=== PATIENT | female | born 1975 | race Caucasian/White ===

== ENCOUNTER 2020-06-22 05:44 | Day surgery (SDC) | payer BC, SELFPAY ==
--- NOTE | 2020-06-02 12:23 | HP.PCM_ITS ---
History and Physical Date of Admission: 06/22/20 HPI:?44-year-old female with history of estrogen and progesterone negative br east cancer in 2014 presents for consultation for bilateral salpingectomy. ?She's completed childbearing. ?She has a history of significant dysmenorrhea and menorrhagia in the past. ?That's been controlled well with the Mirena intrauterine system. ?She would like to have this replaced as well as five-year expiration is in?June 2020.??She has rare occasional spotting with her current Mirena. ?She denies any other major changes in her medical or surgical history. ? PAST MEDICAL HISTORY PAST MEDICAL HISTORY Diagnosis Date ? Atypical mole ? ? Benign colon polyp ? ? BRCA negative 2014 ? 1 & 2 ? Breast lump ? ? Inflammatory breast cancer ? ? right breast, stage 3C- in lymphnodes- triple negative ? Malignant neoplasm of overlapping sites of right female breast ? ? Right tibial fracture ? ? Snoring ? PAST SURGICAL HISTORY PAST SURGICAL HISTORY Procedure Laterality Date ? BREAST BIOPSY ? 07/28/2015 ? COLONOSCOP W/ OR W/O BRSH SPEC ? 11/19/2013 ? Colonoscopy ? COLONOSCOP W/ OR W/O BRSH SPEC N/A 11/22/2016 ? COLONOSCOP W/ OR W/O BRSH SPEC ? 12/13/2019 ? Colonoscopy ? EXTRACTION, ERUPTED TOOTH OR EXPOSED ROOT (ELEVATION AND/OR FORCEPS REMOVAL) ? 1998 ? wisdom teeth ? INSERT INTRAUTERINE DEVICE ? 07/05/2015 ? MASTECTOMY, MODIFIED RADICAL Right 02/05/2016 FAMILY HISTORY FAMILY HISTORY Problem Relation Age of Onset ? Hypertension Mother ? ? Colon Cancer Father ?passed in 1984 in his 50's ? Breast Cancer Other ?2nd degree relative ? Ovarian cancer Paternal Grandmother ?Other 2nd degree relative ? other (precancerous breast lesion) Maternal Grandmother 80 ? Cancer Paternal Grandfather ?kidney ? Ovarian cancer Other ? SOCIAL HISTORY Social History ? Tobacco Use ? Smoking status: Former Smoker ? ? Packs/day: 0.25 ? ? Years: 5.00 ? ? Pack years: 1.25 ? ? Types: Cigarettes ? ? Start date: 1995 ? ? Quit date: 02/20/2007 ? ? Years since quittin.2 ? Smokeless tobacco: Never Used Substance Use Topics ? Alcohol use: Yes ? ? Alcohol/week: 2.0 standard drinks ? ? Types: 1 Cans of beer, 1 Glasses of wine per week ? ? Comment: occassional, social ? Drug use: No CURRENT MEDICATIONS Current Outpatient Medications Medication Sig ? calcium-vitamin D3-vitamin K 500 mg-1,000 unit-40 mcg chew Take ?by mouth once daily. ? levonorgestrel (MIRENA) 20 mcg/24 hr (5 years) IUD Inserted in office ? No current facility-administered medications for this visit.? Allergies As of Date: 05/24/2020 Allergen ?Noted ?Reaction NO KNOWN ALLERGIES ?09/01/2017 ?Unknown SEASONAL ALLERGIES ?05/23/2017 ?Unknown ? Fully Assessed ?04/26/2020 ? ? REVIEW OF SYSTEMS Ano new complaint? Allergies and current medication updated:Yes ? EXAM:?LMP 07/05/2015? ? ? GENERAL:?pleasant, ?female in no apparent distress HEENT:?Normocephalic, atraumatic, mucus membranes moist and no lesions ? ? ASSESSMENT AND PLAN:?? 44-year-old female with history of estrogen and progesterone negative breast cancer would like laparoscopic bilateral salpingectomy for sterilization and possible risk reduction for future ovarian cancer. ?Risks benefits and alternatives to surgery and discussed with the patient, her questions were answered her satisfaction she desires to proceed. ?In addition she has history of heavy menses and dysmenorrhea which are controlled with her intrauterine system. ?She would like this change at time of surgery. ?This is reasonable being that's been 5 years since her last insertion. ?Discussed with her parameters used at [facility] and she is comfortable with proceeding with Liletta?insertion. Procedure Criteria Procedure Type: Elective COVID Risk Discussion: The surgeon/proceduralist and patient have discussed in detail the risk of exposure to and/or potential harm posed by the COVID-19 virus with having a surgery/procedure at this time versus the risk of delaying the surgery/procedure. It is not possible to know either the risk of delaying the s urgery or procedure or chance of getting an infection with perfect accuracy, but a joint decision was made between the patient and the surgeon/proceduralist to proceed at this time with the scheduled surgery/procedure as indicated on the consent form.
--- NOTE | 2020-06-15 08:33 | EKG12_ITS ---
Test Reason : PRE OP Blood Pressure : / mmHG Vent. Rate : 056 BPM Atrial Rate : 056 BPM P-R Int : 150 ms QRS Dur : 092 ms QT Int : 452 ms P-R-T Axes : 006 016 046 degrees QTc Int : 436 ms Sinus bradycardia Otherwise normal ECG Confirmed by ANA BAI, KARAN ([id number]), graphics editor IVANA THOMAS ([id number]) on 06/20/2020 8:05:26 AM Referred By: Mitra Cary Confirmed By:LUIS PEREZ MD
--- NOTE | 2020-06-15 08:34 | RAD_ITS ---
STUDY: X-RAY CHEST REASON FOR EXAM: Female, 44 years old. PRE-OP, HX OF RIGHT SIDED BREAST CANCER AND RADIATION THERAPY TECHNIQUE: PA and lateral views of the chest. COMPARISON: None. FINDINGS: Surgical clips are seen in the right axillary region. The patient is status post right mastectomy. The lungs are clear and expanded. There is no demonstrated pleural abnormality. Normal size heart. Normal mediastinum and carissa. Normal visualized pulmonary arteries. Normal visualized aortic arch and descending thoracic aorta. There are mild degenerative changes of the visualized thoracic spine. Normal visualized ribs, clavicles, and shoulders. There is no demonstrated abnormality of the visualized soft tissue structures of the upper abdomen. RAD/Chest PA and Lateral IMPRESSION: Status post right mastectomy and right axillary node dissection. Electronically Signed: Frederick Puente, at 10:17 EDT , Service support ,
[2020-06-15 09:26] LABS: Hematocrit 44.1 % (37-47); Mean Corpuscular Hgb 31.3 pg (27.0-32.0); Mean Corpuscular Volume 92.1 fL (81-99); Mean Platelet Vol. 10.2 fl (6.2-12.0); Platelet Count 285 K/mm3 (150-450); RBC Distribution Width SD 40.6 fl (35.1-43.9); Red Blood Count 4.79 M/mm3 (4.2-5.4); White Blood Count 9.1 K/mm3 (4.4-11.0)
[2020-06-22] VITALS (9 sets, daily range): BP systolic 115–145; BP diastolic 62–94; PULSE 53–65; RESP 16–22; TEMP 36.1–37; O2SAT 92–97; BMI 41.3
[2020-06-22] MEDS: Celecoxib 200 MG Capsule 400 MG PO (06:23)
[2020-06-22] MEDS: Acetaminophen 500 MG Tablet 1000 MG PO (06:23)
[2020-06-22] MEDS: Lactated Ringers 1,000 ML 100 ML IV ×2 (06:26→10:13)
[2020-06-22 06:39] LABS: Internal QC Validated? YES +Cl - CLEAR BKGD; Pregnancy, Urine Negative Negative
--- NOTE | 2020-06-22 07:30 | FALS_PTH ---
PATIENT: TAMEKA HORTON LOC: [facility] [place] U#:[id number] AGE/SX: 44/F ROOM: RE06/22/[address]: Dr. Mitra Cary MD : [id number] BED: DIS: 06/22/2020 SPEC #: [id number] RECD: 06/22/20 09:17 STATUS: SYDNEE DUKETyrese #: [id number] MANNY: 06/22/20 07:[address]: Mitra Cary DEPT: SURGICAL PATHOLOGY RECD BY: Naomi Baxter Tissues: Fallopian tube Procedures: Surgery Specimen Level II HEADER OPERATION: Laparoscopic salpingectomy, IUD removal PRE-OP DIAGNOSIS: Sterilization TISSUE SUBMITTED: Bilateral fallopian tubes MICROSCOPIC DIAGNOSIS Bilateral fallopian tubes, salpingectomy: Bilateral fallopian tubes including fimbrial ends, no pathologic diagnosis. Paratubal cyst. JOEL:sydney 06/23/20 MICROSCOPIC DESCRIPTION Slides are reviewed. GROSS DESCRIPTION Received in fixative is one container labeled with the patient's name and designated bilateral fallopian tubes. The specimen consists of two fallopian tubes with an average length of 5 cm and has an average diameter of 0.5 cm. Both fallopian tubes have normal fimbriated ends. No mass lesions are identified. Also present free in the container are two irregular fragments of yellow to smooth, cystic soft tissue measuring in aggregate 1.5 x 0.5 x 0.2 cm. Refuse And Recycling Worker sections are submitted in two cassettes as follows: 1 - one fallopian tube, 2 - the other fallopian tube with cystic and nondescript structures. / AM:sydney 06/22/20 TC:5 CPT: 47423 x2
[2020-06-22] MEDS: Levonorgestrel IUD (Liletta) 1 EACH IY (07:58)
[2020-06-22] MEDS: Bupivacaine Mpf 0.5% 30 ML VIAL (07:58)
--- NOTE | 2020-06-22 08:43 | PCM.OPRPT ---
Report of Operation Date of Procedure: 06/22/20 Pre-Operative Diagnosis: dysmenorrhea, sterilization request, history of breast cancer Post-Operative Diagnosis: same Surgery/Procedure Performed:: Laparoscopic bilateral salpingectomy, IUD removal, Liletta IUD insertion Description of Surgical Findings:: normal uterus, tubes, ovaries and fallopian tube, normal cervix and vagina assembler fluorescent lights: student - Ginger Joseph MS3 Type of Anesthesia:: General Special Medications: none Specimen's removed: bilateral fallopian tubes Drains: none Estimated Blood Loss (mL): 10 Fluids Replaced: 500 Description of Procedure: The patient was taken to the operating room where she was prepped and draped in the dorsolithotomy position. A weighted speculum was placed in the vagina and the anterior lip of the cervix was grasped with a tenaculum. The Margo uterine manipulator was placed and the remainder of the instruments were removed from the vagina. Attention was turned to the abdomen. All port sites were infiltrated with 0.5% Marcaine before skin incisions were made. A 5 mm intraumbilical incision was made. The anterior abdominal wall was tented up with 2 towel clamps while a 5 mm blade less trocar and sleeve were directly inserted. Intraperitoneal placement was confirmed with the laparoscope. The pneumoperitoneum was created and the underlying abdominal contents were intact. The patient was placed in Trendelenburg. Right and left lower quadrant ports were placed under direct visualization lateral to the inferior epigastric vessels. The bowel was swept away and the above findings were noted. The LigaSure device was used to clamp seal and transect the antimesenteric portions of the right tube to the cornual insertion of the uterus. The tube was amputated from the uterus and the pedicles were all confirmed to be hemostatic. The same procedure was performed on the contralateral side. The specimens were brought out through a 5 mm port. The pedicles were again examined and found to be hemostatic. The lateral ports were removed under direct visualization and no active bleeding was noted. The pneumoperitoneum was released. The skin incisions were closed with Monocryl suture in a subcuticular fashion and skin glue. The Mirena IUD was grasped with a sponge stick in the Mirena was removed intact without difficulty. The uterus sounded to 8 cm and was anteverted. The Liletta IUD was inserted in the usual sterile fashion without difficulty and the strings trimmed to 3 cm. The vaginal instruments were removed and the vaginal sweep was completed by me. The procedure was performed by me with assistance. All sponge and needle counts were correct and the patient was taken to the recovery room in stable condition. Start time 0758 Stop time 0841 Grafts/Implants Used: Liletta IUD - Complications none - Admit VTE Documentation VTE Present on Admission: No VTE Mechan Device Prophylaxis: SCD's VTE Pharm Prophylaxis ordered?: No Reason prophylaxis not ordered:: Procedure Not Indicated
--- NOTE | 2020-06-22 09:05 | PCM.DC.TUB ---
Discharge Diet: No Restrictions - Increase fluid intake for the next 48 hours. Discharge Activity: Return to Normal Activity, May Drive - when you are no longer taking pain/narcotic meds., May Shower, May Take a Tub Bath - in 7 days Additional Activity Instructions:: Ambulate often the next week after surgery. Nothing in the vagina for 5 days. Call your doctor if your incision/area has: Continuous Slow Oozing, Sudden Increased Bleeding, Increased Pain/ Swelling, Increased Redness, Foul Smelling Discharge Call your doctor if you observe: Fever of 101 or Higher Cleanse incision/area with: Soap & Water, - - Your incisions have skin glue, it can get wet. Let it fall off on its own. Additional Instructions: Use motrin and acetaminophen as needed for pain. Use oxycodone as needed only for breakthrough pain. Allergies/Adverse Reactions: Allergies No Known Allergies Allergy (Verified 06/22/20 06:15) Medications to take at Discharge Bacillus Coagulans/Vitamin D3 [Probiotic 2 Billion Gummies] 1 ea PO DAILY 06/13/20 Calcium Carbonate/Vitamin D3 [Calcium 500 mg Chewable Tablet] 1 ea PO DAILY 06/13/20 Cider Vinegar [Apple Cider Vinegar] 300 mg PO DAILY 06/13/20 Multivitamin with Minerals [Multiple Vitamin] 1 ea PO DAILY 06/13/20 Ibuprofen [Motrin] 600 mg PO Q6H PRN #60 tab 06/22/20 Oxycodone HCl/Acetaminophen [Percocet 5/325] 1 tablet PO Q8 PRN 4 Days #8 tablet 06/22/20 The following prescriptions were given: Ibuprofen [Motrin] 600 mg PO Q6H PRN #60 tab PRN Reason: Pain Transmission Status: Pending to [facility]/pharmacy #[id number] Oxycodone HCl/Acetaminophen [Percocet 5/325] 1 tablet PO Q8 PRN 4 Days #8 tablet PRN Reason: Pain Transmission Status: Received by [facility]/pharmacy #[id number] Primary Care Physician: MAGGIE GALLOWAY [Other] Test Results: Test results from this visit will be discussed in further detail at your follow-up appointment, if applicable. Please Follow Up With: Mitra Cary MD - [phone] When: 2 weeks or as needed
[2020-06-22] MEDS: HYDROcodone Bitartrate/Apap 5/325 Tablet PO (10:47)
== END 2020-06-22 12:01 | disposition home or self-care (01) ==
LOC: SDC 05:46 → AC 05:49
PROVIDERS: Anesthesiology; Referring Provider Obstetrics & Gynecology; Visit Provider Obstetrics & Gynecology
PROC: (CPT 58661; principal; 2020-06-22 07:15)
DX: Z30.2 Encounter for sterilization (principal); N83.8 Other noninflammatory disorders of ovary, fallopian tube and broad ligament; N94.6 Dysmenorrhea, unspecified; Z17.1 Estrogen receptor negative status [ER-]; Z85.3 Personal history of malignant neoplasm of breast; Z87.891 Personal history of nicotine dependence; Z90.11 Acquired absence of right breast and nipple; Z80.41 Family history of malignant neoplasm of ovary
CPT/HCPCS: 00840; 58300; 58301; 58661; 36415; 71046; 81025; 85027; 87635; 88302; 93005; C9803; J7120; J2405; U0003

== ENCOUNTER 2024-09-01 08:00 | Outpatient (RCR) | payer BC, SELFPAY ==
--- NOTE | 2024-07-30 10:46 | HP.PTEVAL_ITS ---
Patient's Visit Information Visit Information Visit Information: TAMEKA HORTON is a 48 year old F referred to Physical Therapy by ROBERTO CARLOS Reilly with a diagnosis of LEFT SHOULDER PAIN. Date of Evaluation: 07/30/24 Physical Therapist: Agusto Thurman PT, Cert MDT, OCS Visit Plan Frequency: 2x /Week Duration: 4 Weeks Plan: PT INTERVENTIONS RTC/SCAPULAR STRENGTHENING ,POSTURAL EX'S ,ROM AND MODALTIES PRN Subjective Subjective: This 48 y/o female presents to physical therapy for left shoulder pain. Patient has had intermittent left lateral shoulder pain for~ [address] robb PT. No imaging .Patient pain is intermittent OH and eccentric lowering affects ADL 's and housework tasks.Patient pain occasionally sleeping. Patient denies paresthesia/tingling. Pain described as dull ache. Patient has not tried to work out.Patient condition affects QOL and function/housework tasks. Patient goals to decrease pain. SOCIAL: single VOCATION:[employer] Pain Left Shoulder: Pain Intensity (Out of 10): 2 Pain Intensity Range: 10 Objective Objective: POSTURE: rounded shoulders head forward PALAPTION: unremarkable NEURO: denies paresthesia/tingling AROM: shoulder flexion 140 degrees ,abduction 150 degrees ,ER 90 degrees ,IR T10 MMT: ( peak force) infraspinatus 9.2,suprapinatus 10.2,deltoid 14.5 Special Tests L Shoulder External Rotation Lag Test - RC Tear: Negative L Shoulder Lift Off Test - Subscapular Tear: Negative L Shoulder Drop Sign - IS Test: Negative L Shoulder Empty Can - SS: Positive L Shoulder Belly Press - SupScap: Negative L Shoulder Neer - Impingement: Positive L Shoulder Albert Yrn - Impingement: Positive L Shoulder Speeds Test - Labrum/Biceps: Negative Balance/Special Test Scores Quick DASH Score: 27.2725 Goals Goal 1:: I with HEP for shoulder Goal Time Frame: 4-6 Weeks Goal 2:: Patient to improve AROM shoulder flexion/abduction 160 degrees to improve ADLS Goal Time Frame: 4-6 Weeks Goal 3:: Patient to improve peak force RTC and deltoid by 5-10# to improve function/ADLS Goal Time Frame: 4-6 Weeks Goal 4:: Patient to demonstrate 70% improvement with less pain and improved function with ADL's Goal Time Frame: 4-6 Weeks Goal 5:: Patient to improve quick dash by 5 points to improve QOL and function Goal Time Frame: 4-6 Weeks Rehabilitation Potential Physical Therapy Diagnosis: This patient has weakness RTC with pain with ten dinopathy with decrease ROM ,weakness impairs ADL and housework tasks above 90 degrees thus benefit from skilled PT Rehabilitation Potential: Good Anticipated Interventions Patient/Client Instruction: Educate patient on: Condition and Plan of Care For the Purpose of:: To decrease pain, To increase ROM, To improve muscle performance and motor function, To improve ability to perform ADL's, To increase tolerance to activity/condition/position, To improve ability of physical actions for home/community/work/leisure, To improve health of tissue, To decrease soft tissue restriction, To increase flexibility/ROM, To improve balance, To reduce risk of recurrence and To prevent re-injury Therapeutic Exercise to Include: Strength training, Postural training, Flexibilty training, Active ROM and Scapular Strength/Stabilization Comment: RTC For the Purpose of:: To decrease pain, To increase ROM, To improve muscle performance and motor function, To improve ability to perform ADL's, To improve ability of physical actions for home/community/work/leisure, To improve health of tissue, To decrease soft tissue restriction, To increase flexibility/ROM and To reduce risk of recurrence TENS: Yes IF ES: Yes Cryotherapy (ice pack, ice massage): Yes Thermo therapy (hot pack): Yes Ultrasound (thermal/non thermal): Yes For the Purpose of:: To decrease pain, To increase ROM, To improve nutrient delivery to tissue, To increase oxygenation perfusion, To improve health of tissue and To decrease soft tissue restriction Text: Thank you for the opportunity to evaluate your patient. For Medicare and Medicare HMO plans, please review the plan of care and approve it. It will need to be FAXED BACK to us at [phone] for Medicare purposes. For Medicare only, by signing this I certify the plan of care. Please let me know if there are questions or concerns regarding this plan of care. Physician Signature: Date:
--- NOTE | 2024-09-01 08:35 | HP.PTDCSUM ---
Discharge Summary D/C summary: It has been my pleasure to treat TAMEKA HORTON referred by ROBERTO CARLOS Reilly, with the diagnosis of LEFT SHOULDER PAIN for a total of 7 visit(s). Discharge Date: 09/01/24 Please see the following information for a summary of their discharge status. Subjective Subjective: Doing good ,although has some lateral deltoid Pain Left Shoulder: Pain Intensity (Out of 10): 0 Overall Improvement % Improvement: 60 Objective Objective/Function: POSTURE: rounded shoulders head forward PALAPTION: unremarkable NEURO: denies paresthesia/tingling AROM: shoulder flexion 155 degrees ,abduction 160 degrees ,ER 90 degrees ,IR T10 MMT: ( peak force) infraspinatus 21.8,suprapinatus 26.2,deltoid 31.4 Goals Goal 1:: I with HEP for shoulder Goal Progress: Goal Met Goal 2:: Patient to improve AROM shoulder flexion/abduction 160 degrees to improve ADLS Goal Progress: Goal Met Goal 3:: Patient to improve peak force RTC and deltoid by 5-10# to improve function/ADLS Goal Progress: Goal Met Goal 4:: Patient to demonstrate 70% improvement with less pain and improved function with ADL's Goal Progress: Goal Met Goal 5:: Patient to improve quick dash by 5 points to improve QOL and function Goal Progress: Goal Met Plan Plan: D/C D/C Information Discharge Comments: HEP d/c sentence: If there are questions or concerns regarding this patient's physical therapy, please feel free to call me at [phone]. Thank you for the referral of this patient. Sincerely, Agusto Thurman, PT, Cert MDT, OCS Balance/Gait/Functional tests Balance/Special Test Scores Quick DASH Score: 4.5450 Improvement % Improvement: 60
== END 2024-09-01 19:00 | disposition home or self-care (01) ==
LOC: PT 08:00
PROVIDERS: PCP Nurse Practitioner Family; Referring Provider Nurse Practitioner Family; Visit Provider Nurse Practitioner Family
DX: M25.512 Pain in left shoulder (principal)
CPT/HCPCS: 97110; 97162

== ENCOUNTER → 2025-05-17 | Outpatient (CLI) | payer BC, SELFPAY ==
--- OUTSIDE RECORDS SUMMARY | 2025-05-17 07:32 | XMS RPT_ITS | CCD ---
Author Organization [facility] Inform ion Partnership [facility] Care Team Providers Care Incident Response Specialist Name Role Phone Zainab Fountain (Stagecraft Professor) Primary Care Provider Leodan BAI MD, Dajohnung Unavailable Yoni Hale Unavailable ZANIAB FOUNTAIN (LEAD ORACLE DEVELOPER) Primary Care Unavailabl e RICO CLIFFORD Attending Unavailable RICO CLIFFORD Admitting Unavailable Zainab Fountain (Stagecraft Professor) Primary Care Provider Leodan BAI MD, Dajohnung Unavailable Yoni Hale DPM Unavailable ZAINAB FOUNTAIN Attending Unavailable ZAINAB FOUNTAIN Primary Care Unavailable UNKNOWN, PROVIDER Primary Care Unavailable YONI NUNO Attending Unavailable Leodan BAI, Maximiliano Unavailable Zainab Fountain (Stagecraft Professor) Primary Care Provider Zainab Fountain NP Primary Care Provider АЛЕКСАНДР INTELLIGENCE OPERATIONS-ZAINAB SAMPSON Primary Care Physician Beena Sevilla Attending Unavail able Zainab Fountain Referring Unavailable Zainab Fountain Attending Unavailable Zainab Fountain Primary Care Unavailable Александр LEAD ORACLE DEVELOPERZainab Primary Care Provider ZAINAB FOUNTAIN Primary Care Unavailable LUDY LEE Attending Unavailable ZAINAB FOUNTAIN Primary Care Unavailable RICO CLIFFORD Attending Unavailable LUDY LEE Referring Unavailable LUDY LEE Attending Unavailable ZAINAB FOUNTAIN Primary Care Unavailable ZAINAB FOUNTAIN Primary Care Unavailable LENORE MORELOS Attending Unavailable ZAINAB FOUNTAIN Primary Care Unavailable SELF Referring Unavailable ANDEION, LENORE Munoz Attending Unavailable АЛЕКСАНДР, ZAINAB Dixon Primary Care Unavailable Dr. Billie Lozoya Attending Unavailable FOUNTAIN, ZAINAB Dixon Primary Care Unavailable HASENSTALEAH, LENORE Munoz Attending Unavailable FOUNTAIN, ZAINAB Dixon Referring Unavailable ZAINAB FOUNTAIN Primary Care Unavailable JACINTO, SHANIQUE Attending Unavailable АЛЕКСАНДР, ZAINAB L Primary Care Unavailable JACINTO, SHANIQUE Referring Unavailable FOUNTAIN INTELLIGENCE OPERATIONS-MANAGER BUSINESS PLANNING, ZAINAB Dixon Primary Care Physician АЛЕКСАНДР INTELLIGENCE OPERATIONS-MANAGER BUSINESS PLANNING, ZAINAB Dixon Primary Care Unavai lable FOUNTAIN INTELLIGENCE OPERATIONS-MANAGER BUSINESS PLANNING, ZAINAB Dixon Attending Unavai lable FOUNTAIN INTELLIGENCE OPERATIONS-MANAGER BUSINESS PLANNING, ZAINAB Dixon Attending Unavai lable FOUNTAIN INTELLIGENCE OPERATIONS-MANAGER BUSINESS PLANNING, ZAINAB Dixon Primary Care Unavai lable FOUNTAIN INTELLIGENCE OPERATIONS-MANAGER BUSINESS PLANNING, ZAINAB Dixon Attending Unavai lable FOUNTAIN INTELLIGENCE OPERATIONS-MANAGER BUSINESS PLANNING, ZAINAB Dixon Primary Care Unavai lable Александр LEAD ORACLE DEVELOPER, Zainab Casiano Primary Care Provider Allergies Allergy Classification Reported Allergen(s) Allergy Type Date of Onset Reaction(s) Facility (15 sources) Seasonal allergy; Translations: [SEASONAL ALLERGIES] Allergy to substance 7 Unknown, Cough [facility] (3 sources) seasonal enviromental Allergy to substance Sore throat symptom (finding) [facility] NEGATED: Highlighted row has been ruled out! (1 source) Drug allergy [facility] NEGATED: Highlighted row has been ruled out! (1 source) Drug allergy [facility] NEGATED: Highlighted row has been ruled out! (1 source) Drug allergy [facility] Medications Current Medications Medication Drug Class(es) Dates Sig (Normalized) Sig (Original) 0.5 ML tirzepatide 25 MG/ML Auto-Injector [Mounjaro] (3 sources) Start: 07-22-2024 inject 12.5 mg by subcutaneous injection every week Mounjaro 12.5 mg/0.5 mL subcutaneous solution INJECT 12.5 MG SUBCUTANEOUSLY ONE TIME A WEEK. Start Date: 07/22/24 Status: Ordered Repeat number: 1 Start: 07-22-2024 inject 12.5 mg by robertson bcutaneous injection every week Mounjaro 12.5 mg/0.5 mL subcutaneous solution INJECT 12.5 MG SUBCUTANEOUSLY ONE TIME A WEEK. Start Date: 07/22/24 Status: Ordered CPAP/BIPAP/OTHER (20 sources) Start: 01-16-2024 End: 06-02-2051 CPAP/BIPAP/OTHER Indications : HALIMA (obstructive sleep apnea) AutoPAP 5-20 cmH2O Mask per patient preference Lifetime supplies Dx: HALIMA 1 Each 01/16/2024 06/02/2051 Active Start: 01-16-2024 End: 06-02-2051 CPAP/BIPAP/OTHER Indications : HALIMA (obstructive sleep apnea) AutoPAP 5-20 cmH2O Mask per patient preference Lifetime supplies Dx: HALIMA 1 Each 0 01/16/2024 06/02/2051 Active Comment on above: AutoPAP 5-20 cmH2O Mask per patient preference Lifetime supplies Dx: HALIMA levonorgestrel 0.354479 mg/hr intrauterine system (20 sources) Progestin, Progestin-containing Intrauterine Device Start: 06-23-2020 levonorgestrel (LILETTA) 20.1 mcg/24 hrs (6 yrs) 52 mg IUD 1 Each by INTRAUTERINE route as directed. put in at [facility] 1 Intra Uterine Device 06/23/2020 Active Comment on above: 1 Each by INTRAUTERI NE route as directed. put in at [facility] meloxicam 15 mg oral tablet (1 source) Nonsteroidal Anti-inflammatory Drug Start: 04-29-2025 End: 05-29-2025 meloxicam 15 mg oral tablet Dose : 15 mg = 1 tab(s), Oral, qDay, # 30 tab(s), 0 Refill(s), Pharmacy: [facility]/pharmacy #[id number], Arthralgia, 166, cm, 07/22/24 9:23:00 EDT, Height, kg, 07/22/24 9:23:00 EDT, Dosing Weight Start Date: 04/29/25 Stop Date: 05/29/25 Status: Ordered Quantity: 30.0 Unit: tab(s) Repeat number: 1 Indications: Pain in unspecified joint; ONETOUCH DELICA PLUS 33G LANCT (3 sources) Start: 07-21-2023 ONETOUCH DELICA PLUS 33G LANCT ONETOUCH DELICA PLUS 33G LANCT, USE ONE DAILY Start Date: 07/21/23 Status: Ordered Repeat number: 1 Start: 07-21-2023 ONETOUCH DELIC A PLUS 33G LANCT ONETOUCH DELICA PLUS 33G LANCT, USE ONE DAILY Start Date: 07/21/23 Status: Ordered 0.25 mg, 0.5 mg dose 1.5 ml semaglutide 1.34 mg/ml pen injector (4 sources) Start: 10-30-2022 End: 01-13-2023 semaglutide (OZEMPIC) 0.25 mg or 0.5 mg(2 mg/1.5 mL) pen Indications: Class 3 severe obesity due to excess calories in adult, unspecified BMI, unspecified whether serious comorbidity present (HCC) , Dietary counseling and surveillance , BMI 40.0-44.9, adult (HCC) , Inflammatory breast cancer, right (HCC) , Moderate mixed hyperlipidemia not requiring statin therapy , HALIMA (obstructive sleep apnea) , Controlled type 2 diabetes mellitus without complication, without long-term current use of insulin (HCC) Inject 0.25 mg subcutaneously one time a week. 1 mL 1 10/30/2022 01/13/2023 Active Comment on above: Inject 0.25 mg subcutaneously one time a week. tirzepatide (MOUNJARO) 10 mg/0.5 mL pen injector (4 sources) Start: 05-27-2024 End: 06-24-2024 inject 10 mg by subcutaneous injection every week tirzepatide (MOUNJARO) 10 mg/0.5 mL pen injector Inject 10 mg subcutaneously one time a week. 2 mL 05/27/2024 06/24/2024 Discontinued Start: 05-27-2024 End: 06-26-2024 inject 10 mg by subcutaneous injection every week tirzepatide (MOUNJARO) 10 mg/0.5 mL pen injector Inject 10 mg subcutaneously one time a week. 2 mL 0 05/27/2024 06/26/2024 Active Start: 12-16-2023 End: 12-23-2023 tirzepatide (MOUNJARO) 10 mg /0.5 mL pen injector Indications: Type 2 diabetes mellitus with other specified complication, without long-term current use of insulin ([facility]) , Dietary counseling and surveillance , BMI 38.0-38.9,adult Inject 10 mg subcutaneously one time a week. 2 mL 0 12/16/2023 12/23/2023 Discontinued Start: 12-16-2023 End: 01-15-2024 tirzepatide (MOUNJARO) 10 mg /0.5 mL pen injector Indications: Type 2 diabetes mellitus with other specified complication, without long-term current use of insulin ([facility]) , Dietary counseling and surveillance , BMI 38.0-38.9,adult Inject 10 mg subcutaneously one time a week. 2 mL 0 12/16/2023 01/15/2024 Active Comment on above: Inject 10 mg subcuta neously one time a week. tirzepatide (MOUNJARO) 15 mg/0.5 mL pen injector (15 sources) Start: 02-09-2025 End: 05-04-2025 tirzepatide (MOUNJARO) 15 mg/0.5 mL pen injector Indications: Type 2 diabetes mellitus with other specified complication, without long-term current use of insulin ([facility]) , Dietary counseling and surveillance , BMI 37.0-37.9, adult Inject 15 mg subcutaneously one time a week. 2 mL 2 02/09/2025 05/04/2025 Active Start: 11-18-2024 End: 02-09-2025 tirzepatide (MOUNJARO) 15 mg /0.5 mL pen injector Indications: Type 2 diabetes mellitus with other specified complication, without long-term current use of insulin ([facility]) , Dietary counseling and surveillance , BMI 37.0-37.9, adult Inject 15 mg subcutaneously one time a week. 2 mL 2 11/18/2024 02/09/2025 Discontinued Start: 11-18-2024 End: 02-10-2025 tirzepatide (MOUNJARO) 15 mg /0.5 mL pen injector Indications: Type 2 diabetes mellitus with other specified complication, without long-term current use of insulin ([facility]) , Dietary counseling and surveillance , BMI 37.0-37.9, adult Inject 15 mg subcutaneously one time a week. 2 mL 2 11/18/2024 02/10/2025 Active Start: 10-19-2024 End: 11-18-2024 tirzepatide (MOUNJARO) 15 mg /0.5 mL pen injector Indications: Type 2 diabetes mellitus with other specified complication, without long-term current use of insulin ([facility]) , Dietary counseling and surveillance , BMI 37.0-37.9, adult Inject 15 mg subcutaneously one time a week. 2 mL 10/19/2024 11/18/2024 Discontinued Start: 10-19-2024 End: 11-18-2024 tirzepatide (MOUNJARO) 15 mg /0.5 mL pen injector Indications: Type 2 diabetes mellitus with other specified complication, without long-term current use of insulin ([facility]) , Dietary counseling and surveillance , BMI 37.0-37.9, adult Inject 15 mg subcutaneously one time a week. 2 mL 10/19/2024 11/18/2024 Active Start: 09-13-2024 End: 10-13-2024 tirzepatide (MOUNJARO) 15 mg /0.5 mL pen injector Indications: Type 2 diabetes mellitus with other specified complication, without long-term current use of insulin ([facility]) , Dietary counseling and surveillance , BMI 37.0-37.9, adult Inject 15 mg subcutaneously one time a week. 2 mL 09/13/2024 10/13/2024 Active Start: 08-16-2024 End: 09-13-2024 tirzepatide (MOUNJARO) 15 mg /0.5 mL pen injector Indications: Type 2 diabetes mellitus with other specified complication, without long-term current use of insulin ([facility]) , Dietary counseling and surveillance , BMI 37.0-37.9, adult Inject 15 mg subcutaneously one time a week. 2 mL 08/16/2024 09/13/2024 Discontinued Start: 08-16-2024 End: 09-15-2024 tirzepatide (MOUNJARO) 15 mg /0.5 mL pen injector Indications: Type 2 diabetes mellitus with other specified complication, without long-term current use of insulin ([facility]) , Dietary counseling and surveillance , BMI 37.0-37.9, adult Inject 15 mg subcutaneously one time a week. 2 mL 08/16/2024 09/15/2024 Active topiramate 25 mg oral tablet (5 sources) Start: 02-09-2025 End: 05-10-2025 take 37-37.9 tablets by mouth once daily at bedtime topiramate (TOPAMAX) 25 mg tablet Indications: Class 3 severe obesity with serious comorbidity in adult (HCC) , Inflammatory breast cancer, right (HCC) , Type 2 diabetes mellitus with other specified complication, without long-term current use of insulin (HCC) , HALIMA (obstructive sleep apnea) , Dietary counseling and surveillance , BMI 37.0-37.9, adult TAKE 1 TABLET BY MOUTH EVERYDAY AT BEDTIME 90 tablet 05/09/2025 Active Completed/Discontinued Medications Medication Drug Class(es) Dates Sig (Normalized) Sig (Original) calcium carbonate 1250 mg / cholecalciferol 1000 unt / vitamin k 0.4 mg chewable tablet (9 sources) Vitamin D calcium-vitamin D3-vitamin K 500 mg-1,000 unit-40 mcg chew Take by mouth once daily. 0 Active Comment on above: Take by mouth once d aily. calcium chloride 0.0014 meq/ml / potassium chloride 0.004 meq/ml / sodium chloride 0.103 meq/ml / sodium lactate 0.028 meq/ml injectable solution (1 source) Start: 12-13-2024 End: 12-13-2024 take 30 mL intravenously every hour 30 mL/hr, INTRAVENOUS, CONTINUOUS, Starting on Fri12/13/24 at 0800, Until Fri12/13/24 at 0829, Preprocedure cholecalciferol 1.25 mg oral capsule (12 sources) Vitamin D Start: 10-30-2022 End: 08-27-2023 take 9662-0122 [IU] by mouth once daily cholecalciferol, Vitamin D3, (VITAMIN D3) 1,250 mcg (50,000 unit) cap capsule Indications: vitamin D deficiency Take 1 capsule by mouth one time a week. Transition to 2,000-4,000 units of Vitamin D OTC after completing 12 weeks 12 capsule 0 10/30/2022 08/27/2023 Discontinued (Discontinued by Patient) Comment on above: Take 1 capsule by [facility] one time a week. Transition to 2,000-4,000 units of Vitamin D OTC after completing 12 weeks diphenhydrAMINE (1 source) Histamine-1 Receptor Antagonist Start: 12-13-2024 End: 12-13-2024 12.5-50 mg, INTRAVENOUS, DIRECTED, Starting on Fri12/13/24 at 0830, Until Fri12/13/24 at 1229, DOSING DIRECTED BY PHYSICIAN FOR PROCEDURAL SEDATION ONLY, Intraprocedure 1 ml fentaNYL 0.05 mg/ml injection (1 source) Opioid Agonist Start: 12-13-2024 End: 12-13-2024 25-100 mcg, INTRAVENOUS, DIRECTED, Starting on Fri12/13/24 at 0830, Until Fri12/13/24 at 1229, DOSING DIRECTED BY PHYSICIAN FOR PROCEDURAL SEDATION ONLY, Intraprocedure 24 hr metFORMIN hydrochloride 500 mg extended release oral tablet (20 sources) Biguanide Start: 02-09-2024 End: 10-22-2024 take 1 tablet by mouth once daily at breakfast metFORMIN ER (GLUCOPHAGE XR) 500 mg 24 hr tablet take 1 tablet by mouth every day with breakfast 90 tablet 08/09/2024 10/22/2024 Discontinued Start: 07-21-2023 End: 01-17-2024 MetFORMIN (Eqv-Glucophage XR ) 500 mg oral tablet, EXTENDED RELEASE Dose : 500 mg = 1 tab(s), Oral, qDay, # 90 tab(s), 1 Refill(s), Pharmacy: [facility]/pharmacy #[id number], Hyperglycemia, 166, cm, 07/21/23 7:42:00 EDT, Height, kg, 07/21/23 7:42:00 EDT, Dosing Weight Start Date: 07/21/23 Stop Date: 01/17/24 Status: Ordered Quantity: 90.0 Unit: tab(s) Repeat number: 2 Indications: Hyperglycemia, unspecified; Start: 07-18-2022 End: 02-09-2024 metFORMIN ER (GLUCOPHAGE XR) 500 mg 24 hr tablet daily with breakfast. 0 07/18/2022 02/09/2024 Discontinued Start: 07-18-2022 metFORMIN ER ( GLUCOPHAGE XR) 500 mg 24 hr tablet 750 mg daily with breakfast. 0 07/18/2022 Active Comment on above: daily with breakfast . 750 mg daily with br eakfast. 5 ml midazolam 1 mg/ml injection (1 source) Benzodiazepine Start: 12-13-2024 End: 12-13-2024 1-5 mg, INTRAVENOUS, DIRECTED, Starting on Fri12/13/24 at 0830, Until Fri12/13/24 at 1229, DOSING DIRECTED BY PHYSICIAN FOR PROCEDURAL SEDATION ONLY, Intraprocedure MOUNJARO 10 mg/0.5 mL pen injector (10 sources) Start: 04-20-2024 End: 05-18-2024 MOUNJARO 10 mg/0.5 mL pen injector Indications: BMI 40.0-44.9, adult (HCC) , Dietary counseling and surveillance , Type 2 diabetes mellitus with other specified complication, without long-term current use of insulin ([facility]) , HALIMA (obstructive sleep apnea) Inject 10 mg subcutaneously one time a week. 2 mL 0 04/20/2024 05/18/2024 Discontinued Start: 04-20-2024 End: 05-20-2024 MOUNJARO 10 mg/0.5 mL pen in jector Indications: BMI 40.0-44.9, adult ([facility]) , Dietary counseling and surveillance , Type 2 diabetes mellitus with other specified complication, without long-term current use of insulin ([facility]) , HALIMA (obstructive sleep apnea) Inject 10 mg subcutaneously one time a week. 2 mL 0 04/20/2024 05/20/2024 Active Start: 03-21-2024 End: 04-20-2024 MOUNJARO 10 mg/0.5 mL pen in jector Indications: BMI 40.0-44.9, adult ([facility]) , Dietary counseling and surveillance , Type 2 diabetes mellitus with other specified complication, without long-term current use of insulin ([facility]) , HALIMA (obstructive sleep apnea) Inject 10 mg subcutaneously one time a week. 2 mL 0 03/21/2024 04/20/2024 Discontinued Start: 03-21-2024 End: 04-20-2024 MOUNJARO 10 mg/0.5 mL pen in jector Indications: BMI 40.0-44.9, adult ([facility]) , Dietary counseling and surveillance , Type 2 diabetes mellitus with other specified complication, without long-term current use of insulin ([facility]) , HALIMA (obstructive sleep apnea) Inject 10 mg subcutaneously one time a week. 2 mL 0 03/21/2024 04/20/2024 Active Start: 02-09-2024 End: 03-10-2024 MOUNJARO 10 mg/0.5 mL pen in jector Indications: BMI 40.0-44.9, adult ([facility]) , Dietary counseling and surveillance , Type 2 diabetes mellitus with other specified complication, without long-term current use of insulin (HCC) , HALIMA (obstructive sleep apnea) Inject 10 mg subcutaneously one time a week. 2 mL 0 02/09/2024 03/10/2024 Active Start: 01-16-2024 End: 02-09-2024 inject 10 mg by subcutaneous injection every week MOUNJARO 10 mg/0.5 mL pen injector INJECT 10 MG SUBCUTANEOUSLY ONE TIME PER WEEK 0 01/16/2024 02/09/2024 Discontinued nystatin 100 unt/mg topical powder (1 source) Polyene Antifungal Start: 07-17-2022 nystatin (MYCOSTATIN) powder Apply to affected area three times daily. 0 07/17/2022 Active Comment on above: Apply to affected ar ea three times daily. polyethylene glycol 3350 340777 mg / potassium chloride 2970 mg / sodium bicarbonate 6740 mg / sodium chloride 5860 mg / sodium sulfate 03542 mg powder for oral solution (2 sources) Osmotic Laxative Start: 11-08-2024 End: 11-08-2024 peg 3350-Electrolytes (GOLYTELY) 236-22.74-6.74 -5.86 gram suspension Indications: Screen for colon cancer Take 4,000 mL by mouth one time only for 1 dose. Refer to printed prep instructions from your provider. 4000 mL 11/08/2024 11/08/2024 semaglutide (OZEMPIC) 1 mg/dose (4 mg/3 mL) pen (7 sources) Start: 08-20-2023 End: 08-27-2023 inject 1 mg by subcutaneous injection every week semaglutide (OZEMPIC) 1 mg/dose (4 mg/3 mL) pen Inject 1 mg subcutaneously one time a week. 3 mL 0 08/20/2023 08/27/2023 Discontinued Start: 08-20-2023 End: 09-19-2023 inject 1 mg by subcutaneous injection every week semaglutide (OZEMPIC) 1 mg/dose (4 mg/3 mL) pen Inject 1 mg subcutaneously one time a week. 3 mL 0 08/20/2023 09/19/2023 Active Start: 05-05-2023 End: 06-09-2023 inject 1 mg by subcutaneous injection every week semaglutide (OZEMPIC) 1 mg/dose (4 mg/3 mL) pen Inject 1 mg subcutaneously one time a week. 3 mL 1 05/05/2023 06/09/2023 Discontinued (Course of therapy completed) Start: 05-05-2023 End: 06-30-2023 inject 1 mg by subcutaneous injection every week semaglutide (OZEMPIC) 1 mg/dose (4 mg/3 mL) pen Inject 1 mg subcutaneously one time a week. 3 mL 1 05/05/2023 06/30/2023 Active Start: 01-24-2023 End: 04-18-2023 semaglutide (OZEMPIC) 1 mg/d ose (4 mg/3 mL) pen Indications: Class 3 severe obesity with serious comorbidity in adult, unspecified BMI, unspecified obesity type (HCC) , Dietary counseling and surveillance , BMI 40.0-44.9, adult (HCC) , Inflammatory breast cancer, right (HCC) , HALIMA (obstructive sleep apnea) , Type 2 diabetes mellitus with other specified complication, without long-term current use of insulin ([facility]) Inject 1 mg subcutaneously one time a week. 3 mL 2 01/24/2023 04/18/2023 Active Comment on above: Inject 1 mg subcutan eously one time a week. semaglutide (OZEMPIC) 2 mg/dose (8 mg/3 mL) pen injector (5 sources) Start: 07-28-2023 End: 08-20-2023 semaglutide (OZEMPIC) 2 mg/dose (8 mg/3 mL) pen injector Indications: HALIMA (obstructive sleep apnea) , Dietary counseling and surveillance , Type 2 diabetes mellitus with other specified complication, without long-term current use of insulin ([facility]) , BMI 40.0-44.9, adult ([facility]) Inject 2 mg subcutaneously one time a week. 3 mL 1 07/28/2023 08/20/2023 Discontinued Start: 07-28-2023 End: 09-22-2023 semaglutide (OZEMPIC) 2 mg/d ose (8 mg/3 mL) pen injector Indications: HALIMA (obstructive sleep apnea) , Dietary counseling and surveillance , Type 2 diabetes mellitus with other specified complication, without long-term current use of insulin ([facility]) , BMI 40.0-44.9, adult ([facility]) Inject 2 mg subcutaneously one time a week. 3 mL 1 07/28/2023 09/22/2023 Active Start: 06-09-2023 End: 07-28-2023 semaglutide (OZEMPIC) 2 mg/d ose (8 mg/3 mL) pen injector Indications: HALIMA (obstructive sleep apnea) , Dietary counseling and surveillance , Type 2 diabetes mellitus with other specified complication, without long-term current use of insulin (HCC) , BMI 40.0-44.9, adult (HCC) Inject 2 mg subcutaneously one time a week. 3 mL 1 06/09/2023 07/28/2023 Discontinued Start: 06-09-2023 End: 08-04-2023 semaglutide (OZEMPIC) 2 mg/d ose (8 mg/3 mL) pen injector Indications: HALIMA (obstructive sleep apnea) , Dietary counseling and surveillance , Type 2 diabetes mellitus with other specified complication, without long-term current use of insulin ([facility]) , BMI 40.0-44.9, adult ([facility]) Inject 2 mg subcutaneously one time a week. 3 mL 1 06/09/2023 08/04/2023 Active Start: 06-09-2023 End: 06-09-2023 semaglutide (OZEMPIC) 2 mg/d ose (8 mg/3 mL) pen injector Indications: HALIMA (obstructive sleep apnea) , Dietary counseling and surveillance , Type 2 diabetes mellitus with other specified complication, without long-term current use of insulin (HCC) , BMI 40.0-44.9, adult ([facility]) Inject 2 mg subcutaneously one time a week. 3 mL 1 06/09/2023 06/09/2023 Discontinued Comment on above: Inject 2 mg subcutan eously one time a week. tirzepatide (MOUNJARO) 12.5 mg/0.5 mL pen injector (7 sources) Start: 06-24-2024 End: 08-16-2024 tirzepatide (MOUNJARO) 12.5 mg/0.5 mL pen injector Indications: Type 2 diabetes mellitus with other specified complication, without long-term current use of insulin (HCC) , Dietary counseling and surveillance , BMI 37.0-37.9, adult Inject 12.5 mg subcutaneously one time a week. 2 mL 06/24/2024 08/16/2024 Discontinued Start: 06-24-2024 End: 07-24-2024 tirzepatide (MOUNJARO) 12.5 mg/0.5 mL pen injector Indications: Type 2 diabetes mellitus with other specified complication, without long-term current use of insulin (HCC) , Dietary counseling and surveillance , BMI 37.0-37.9, adult Inject 12.5 mg subcutaneously one time a week. 2 mL 06/24/2024 07/24/2024 Active Start: 05-18-2024 tirzepatide (M OUNJARO) 12.5 mg/0.5 mL pen injector Indications: BMI 40.0-44.9, adult (HCC) , Dietary counseling and surveillance , Type 2 diabetes mellitus with other specified complication, without long-term current use of insulin (HCC) , HALIMA (obstructive sleep apnea) Inject 12.5 mg subcutaneously one time a week. 2 mL 05/18/2024 Active Start: 05-18-2024 End: 06-17-2024 tirzepatide (MOUNJARO) 12.5 mg/0.5 mL pen injector Indications: BMI 40.0-44.9, adult (HCC) , Dietary counseling and surveillance , Type 2 diabetes mellitus with other specified complication, without long-term current use of insulin (HCC) , HALIMA (obstructive sleep apnea) Inject 12.5 mg subcutaneously one time a week. 2 mL 0 05/18/2024 06/17/2024 Active tirzepatide (MOUNJARO) 2.5 mg/0.5 mL pen injector (2 sources) Start: 08-27-2023 End: 09-23-2023 tirzepatide (MOUNJARO) 2.5 m g/0.5 mL pen injector Indications: Type 2 diabetes mellitus with other specified complication, without long-term current use of insulin (HCC) , HALIMA (obstructive sleep apnea) , Dietary counseling and surveillance , BMI 40.0-44.9, adult (HCC) Inject 2.5 mg subcutaneously one time a week. 2 mL 0 08/27/2023 09/23/2023 Discontinued Start: 08-27-2023 End: 09-26-2023 tirzepatide (MOUNJARO) 2.5 m g/0.5 mL pen injector Indications: Type 2 diabetes mellitus with other specified complication, without long-term current use of insulin ([facility]) , HALIMA (obstructive sleep apnea) , Dietary counseling and surveillance , BMI 40.0-44.9, adult ([facility]) Inject 2.5 mg subcutaneously one time a week. 2 mL 0 08/27/2023 09/26/2023 Active Comment on above: Inject 2.5 mg subcut aneously one time a week. tirzepatide (MOUNJARO) 5 mg/0.5 mL pen injector (8 sources) Start: 01-19-2024 End: 01-21-2024 tirzepatide (MOUNJARO) 5 mg/0.5 mL pen injector Indications: Type 2 diabetes mellitus with other specified complication, without long-term current use of insulin ([facility]) , Dietary counseling and surveillance , BMI 38.0-38.9,adult Inject 5 mg subcutaneously one time a week. 2 mL 0 01/19/2024 01/21/2024 Discontinued (Course of therapy completed) Start: 01-19-2024 End: 02-18-2024 tirzepatide (MOUNJARO) 5 mg/ 0.5 mL pen injector Indications: Type 2 diabetes mellitus with other specified complication, without long-term current use of insulin ([facility]) , Dietary counseling and surveillance , BMI 38.0-38.9,adult Inject 5 mg subcutaneously one time a week. 2 mL 0 01/19/2024 02/18/2024 Active Start: 12-23-2023 End: 01-19-2024 tirzepatide (MOUNJARO) 5 mg/ 0.5 mL pen injector Indications: Type 2 diabetes mellitus with other specified complication, without long-term current use of insulin ([facility]) , Dietary counseling and surveillance , BMI 38.0-38.9,adult Inject 5 mg subcutaneously one time a week. 2 mL 0 12/23/2023 01/19/2024 Discontinued Start: 12-23-2023 End: 01-22-2024 tirzepatide (MOUNJARO) 5 mg/ 0.5 mL pen injector Indications: Type 2 diabetes mellitus with other specified complication, without long-term current use of insulin ([facility]) , Dietary counseling and surveillance , BMI 38.0-38.9,adult Inject 5 mg subcutaneously one time a week. 2 mL 0 12/23/2023 01/22/2024 Active Start: 09-23-2023 End: 11-17-2023 tirzepatide (MOUNJARO) 5 mg/ 0.5 mL pen injector Indications: Type 2 diabetes mellitus with other specified complication, without long-term current use of insulin ([facility]) , HALIMA (obstructive sleep apnea) , Dietary counseling and surveillance , BMI 40.0-44.9, adult (HCC) Inject 5 mg subcutaneously one time a week. 2 mL 0 09/23/2023 11/17/2023 Discontinued Start: 09-23-2023 End: 10-23-2023 tirzepatide (MOUNJARO) 5 mg/ 0.5 mL pen injector Indications: Type 2 diabetes mellitus with other specified complication, without long-term current use of insulin (HCC) , HALIMA (obstructive sleep apnea) , Dietary counseling and surveillance , BMI 40.0-44.9, adult ([facility]) Inject 5 mg subcutaneously one time a week. 2 mL 0 09/23/2023 10/23/2023 Active Comment on above: Inject 5 mg subcutan eously one time a week. tirzepatide (MOUNJARO) 7.5 mg/0.5 mL pen injector (7 sources) Start: 01-21-2024 End: 02-09-2024 tirzepatide (MOUNJARO) 7.5 mg/0.5 mL pen injector Indications: Type 2 diabetes mellitus with other specified complication, without long-term current use of insulin ([facility]) , Dietary counseling and surveillance , BMI 40.0-44.9, adult ([facility]) Inject 7.5 mg subcutaneously one time a week. 2 mL 0 01/21/2024 02/09/2024 Discontinued Start: 01-21-2024 End: 02-20-2024 tirzepatide (MOUNJARO) 7.5 m g/0.5 mL pen injector Indications: Type 2 diabetes mellitus with other specified complication, without long-term current use of insulin (HCC) , Dietary counseling and surveillance , BMI 40.0-44.9, adult ([facility]) Inject 7.5 mg subcutaneously one time a week. 2 mL 0 01/21/2024 02/20/2024 Active Start: 12-12-2023 End: 12-16-2023 tirzepatide (MOUNJARO) 7.5 m g/0.5 mL pen injector Indications: Dietary counseling and surveillance , Type 2 diabetes mellitus with other specified complication, without long-term current use of insulin (HCC) , HALIMA (obstructive sleep apnea) , BMI 40.0-44.9, adult (HCC) Inject 7.5 mg subcutaneously one time a week. 2 mL 0 12/12/2023 12/16/2023 Discontinued Start: 12-12-2023 End: 01-11-2024 tirzepatide (MOUNJARO) 7.5 m g/0.5 mL pen injector Indications: Dietary counseling and surveillance , Type 2 diabetes mellitus with other specified complication, without long-term current use of insulin (HCC) , HALIMA (obstructive sleep apnea) , BMI 40.0-44.9, adult (HCC) Inject 7.5 mg subcutaneously one time a week. 2 mL 0 12/12/2023 01/11/2024 Active Start: 11-17-2023 End: 12-12-2023 tirzepatide (MOUNJARO) 7.5 m g/0.5 mL pen injector Indications: Dietary counseling and surveillance , Type 2 diabetes mellitus with other specified complication, without long-term current use of insulin (HCC) , HALIMA (obstructive sleep apnea) , BMI 40.0-44.9, adult (HCC) Inject 7.5 mg subcutaneously one time a week. 2 mL 0 11/17/2023 12/12/2023 Discontinued Start: 11-17-2023 End: 12-17-2023 tirzepatide (MOUNJARO) 7.5 m g/0.5 mL pen injector Indications: Dietary counseling and surveillance , Type 2 diabetes mellitus with other specified complication, without long-term current use of insulin (HCC) , HALIMA (obstructive sleep apnea) , BMI 40.0-44.9, adult (HCC) Inject 7.5 mg subcutaneously one time a week. 2 mL 0 11/17/2023 12/17/2023 Active Comment on above: Inject 7.5 mg subcut aneously one time a week. Problems Active Problems Problem Classification Problem Date Documented Da te Episodic/Chronic Administrative/social admission (1 source) Dietary counseling and surveillance; Translations: [Dietary counseling and surveillance] Onset: 02-09-2025 Episodic Cancer of breast (20 sources) Inflammatory carcinoma of breast; Translations: [Malignant neoplasm of unspecified site of right female breast] Onset: 11-09-2015 Chronic Diabetes mellitus with complications (20 sources) Type 2 diabetes mellitus; Translations: [Type 2 diabetes mellitus with other specified complication] Onset: 06-09-2023 06-09-2023 Chronic Diabetes mellitus without complication (20 sources) Diabetes mellitus; Translations: [Type 2 diabetes mellitus without complications] 06-09-2023 Chronic Other aftercare (1 source) Follow-up status; Translations: [Encounter for other specified aftercare] Episodic Other and unspecified benign neoplasm (1 source) Hyperplastic polyp of intestine; Translations: [Polyp of colon] 12-21-2024 Episodic Other nutritional; endocrine; and metabolic disorders (20 sources) Body mass index 40+ - severely obese; Translations: [Morbid (severe) obesity due to excess calories] Onset: 09-10-2018 09-10-2018 Chronic Other nutritional; endocrine; and metabolic disorders (20 sources) Severe obesity; Translations: [Morbid (severe) obesity due to excess calories] Onset: 11-17-2023 06-09-2023 Chronic Other nutritional; endocrine; and metabolic disorders (10 sources) Body mass index 30+ - obesity; Translations: [Body mass index (BMI) 38.0-38.9, adult] 12-16-2023 Chronic Other nutritional; endocrine; and metabolic disorders (1 source) Body mass index (BMI) 37.0-37.9, adult; Translations: [BMI 37.0-37.9, adult] Onset: 02-09-2025 Chronic Other nutritional; endocrine; and metabolic disorders (1 source) Morbid (severe) obesity due to excess calories; Translations: [Class 3 severe obesity with serious comorbidity in adult, unspecified BMI, unspecified obesity type (HCC)] Onset: 11-17-2023 Chronic Other nutritional; endocrine; and metabolic disorders (1 source) Body mass index (BMI) 40.0-44.9, adult; Translations: [BMI 40.0-44.9, adult (HCC)] Onset: 11-17-2023 Chronic Other nutritional; endocrine; and metabolic disorders (1 source) Health-related behavior finding; Translations: [Other symptoms and signs concerning food and fluid intake] 02-09-2025 Episodic Other nutritional; endocrine; and metabolic disorders (1 source) Other symptoms and signs concerning food and fluid intake; Translations: [Abnormal craving] Onset: 02-09-2025 Episodic Other screening for suspected conditions (not mental disorders or infectious disease) (20 sources) Patient encounter status; Translations: [Encounter for screening mammogram for malignant neoplasm of breast] Onset: 10-13-2014 Episodic Residual codes; unclassified (20 sources) Obstructive sleep apnea syndrome; Translations: [Obstructive sleep apnea (adult) (pediatric)] Onset: 05-30-2023 05-30-2023 Chronic Residual codes; unclassified (1 source) Obstructive sleep apnea (adult) (pediatric); Translations: [HALIMA (obstructive sleep apnea)] Onset: 04-23-2024 Chronic Residual codes; unclassified (1 source) Family history of malignant neoplasm of digestive organs; Translations: [Family history of colon cancer in father] Onset: 12-13-2024 Episodic Unclassified (2 sources) Patient encounter status 12-13-2024 Unclassified (1 source) Class 3 severe obesity with serious comorbidity in adult; Translations: [Class 3 severe obesity with serious comorbidity in adult] Onset: 11-17-2023 Unclassified (1 source) Class 3 severe obesity with serious comorbidity in adult, unspecified BMI, unspecified obesity type (HCC); Translations: [Class 3 severe obesity with serious comorbidity in adult, unspecified BMI, unspecified obesity type (HCC)] Onset: 11-17-2023 Past or Other Problems Problem Classification Problem Date Documented Date Episodic/Chronic Abdominal pain (20 sources) Right upper quadrant pain; Translations: [Right upper quadrant pain] Onset: 08-28-2022 Resolved: 08-28-2022 Episodic Acute bronchitis (3 sources) Acute bronchitis; Translations: [Acute bronchitis, unspecified] Onset: 10-09-2023 Episodic Biliary tract disease (20 sources) Biliary calculus; Translations: [Calculus of gallbladder with other cholecystitis without obstruction] Onset: 08-28-2022 Resolved: 08-28-2022 Episodic Diabetes mellitus without complication (2 sources) Hyperglycemia, unspecified; Translations: [Hyperglycemia, unspecified] Onset: 07-27-2024 Episodic Residual codes; unclassified (20 sources) History of right mastectomy; Translations: [Acquired absence of right breast and nipple] Onset: 11-05-2021 Episodic Residual codes; unclassified (20 sources) Family history of malignant neoplasm of lung; Translations: [Family history of malignant neoplasm of trachea, bronchus and lung] Onset: 08-29-2015 01-21-2019 Episodic Residual codes; unclassified (20 sources) Family history of cancer of colon; Translations: [Family history of malignant neoplasm of digestive organs] Onset: 08-29-2015 01-21-2019 Episodic Residual codes; unclassified (20 sources) Family history of malignant melanoma; Translations: [Family history of malignant neoplasm of other organs or systems] Onset: 08-29-2015 01-21-2019 Episodic Residual codes; unclassified (20 sources) Family history of malignant neoplasm of ovary; Translations: [Family history of malignant neoplasm of ovary] Onset: 08-29-2015 01-21-2019 Episodic Residual codes; unclassified (1 source) Acquired absence of right breast and nipple; Translations: [History of right mastectomy] Onset: 11-05-2021 Episodic Results Test Name Value Interpretation Reference Range Facility RFon 05-04-2025 Rheumatoid Factor <6.0 Normal <=5.9 [facility] Comment on above: Result Comment: RF I gM Antibody by Enzyme Immunoassay: Negative < or = 6 Positive > 6 A positive result indicates the presence of RF antibodies and suggests the possibility of rheumatoid arthritis. A negative result indicates no RF IgM antibody or levels below the negative cut-off of the assay. Results of this assay should be used in conjunction with clinical findings and other serological tests. These results were obtained with the [employer] Lite RF IgM BE. RF IgM values obtained with different manufacturers' assay methods may not be used interchangeably. The magnitude of the reported IgM levels cannot be correlated to an endpoint titer. Performed By: #### L IPID, CBC, CMP, ADIFF, ANEU, A1C, TSH, GFR #### [facility] [address] [place], [place] [address] ANAIFSon 05-03-2025 Antinuclear Ab Pattern Nuclear dense fine speckled Normal [facility] Comment on above: Result Comment: Perf ormed By: [facility] [address] [place] [address] 21 Dealer: Brayden Sanabria III, M.D. CLIA#: [id number] Performed By: #### L IPID, CBC, CMP, ADIFF, ANEU, A1C, TSH, GFR #### [address] [address] Antinuclear Ab Screen Positive Abnormal Negative [facility] Comment on above: Result Comment: Anti -nuclear antibody test is used as an aid in diagnosis of systemic autoimmune diseases. Where positive and clinically warranted, follow-up using disease-specific testing is recommended. Low positive titers are not uncommon with advanced age, certain chronic infections, and malignancies among others. Test methodology: Indirect fluorescence immunoassay (IFA) using HEp-2 cells. Performed By: [facility] [address] [place] [address] 21 Dealer: Brayden Sanabria III, M.D. CLIA#: [id number] Performed By: #### L IPID, CBC, CMP, ADIFF, ANEU, A1C, TSH, GFR #### [place] [address] Antinuclear Ab Titer 1:160 Normal [facility] Comment on above: Result Comment: Perf ormed By: [facility] [address] [place] [address] 21 Dealer: Brayden Sanabria III, M.D. CLIA#: [id number] Performed By: #### L IPID, CBC, CMP, ADIFF, ANEU, A1C, TSH, GFR #### [address] [address] B12on 05-01-2025 Cobalamin (Vitamin B12) [Mass/Vol] 466 pg/mL Normal 211-911 [facility] Comment on above: Performed By: #### L IPID, CBC, CMP, ADIFF, ANEU, A1C, TSH, GFR #### [address] [address] LMERLYon 05-01-2025 Lyme Total Antibody HILTON Negative Normal Negative [facility] Comment on above: Result Comment: Lyme antibodies not detected. Reflex testing is not indicated. No laboratory evidence of infection with B. burgdorferi (Lyme disease). Negative results may occur in patients recently infected (less than or equal to 14 days) with B. burgdorferi. If recent infection is suspected, repeat testing on a new sample collected in 7 to 14 days is recommended. Performed At: [address] [id number] Michelle Sylvester PhD Ph:[phone] Performed By: #### L IPID, CBC, CMP, ADIFF, ANEU, A1C, TSH, GFR #### [address] [address] THYCASon 05-01-2025 TSH 1.660 uIU/mL Normal 0.450-4.500 [facility] Comment on above: Result Comment: No a pparent thyroid disorder. Additional testing not indicated. In rare instances, Secondary Hypothyroidism as well as Subclinical Hypothyroidism have been reported in some patients with normal TSH values. Performed At: [address] [id number] Michelle Sylvester PhD Ph:[phone] Performed By: #### L IPID, CBC, CMP, ADIFF, ANEU, A1C, TSH, GFR #### [address] [address] .Auto Diffon 04-30-2025 Basophil, Absolute 0.0 10 3/mcL Normal 0.0-0.3 [facility] Comment on above: Performed By: #### B 12, RF #### [place] [address] #### FERR, GFR, VIDH, 632131, CRP, ANAIFS, CMP, 580344, ANEU, ESR, FE, ADIFF, URIC, CBC, IBC #### [address] [address] Basophils/100 WBC (Bld) 0.4 % Normal 0.0-2.5 [facility] Comment on above: Performed By: #### B 12, RF #### [place] [address] #### FERR, GFR, VIDH, 546962, CRP, ANAIFS, CMP, 849342, ANEU, ESR, FE, ADIFF, URIC, CBC, IBC #### [address] [address] Eosinophil, Absolute 0.1 10 3/mcL Normal 0.0-0.7 [facility] Comment on above: Performed By: #### B 12, RF #### [address] [address] #### FERR, GFR, VIDH, 791556, CRP, ANAIFS, CMP, 904047, ANEU, ESR, FE, ADIFF, URIC, CBC, IBC #### [address] [address] Eosinophils/100 WBC (Bld) 1.5 % Normal 0.0-6.0 [facility] Comment on above: Performed By: #### B 12, RF #### [address] [address] #### FERR, GFR, VIDH, 570190, CRP, ANAIFS, CMP, 503588, ANEU, ESR, FE, ADIFF, URIC, CBC, IBC #### [address] [address] Lymphocyte, Absolute 1.2 10 3/mcL Normal 0.9-4.3 [facility] Comment on above: Performed By: #### B 12, RF #### [address] [address] #### FERR, GFR, VIDH, 458955, CRP, ANAIFS, CMP, 326686, ANEU, ESR, FE, ADIFF, URIC, CBC, IBC #### [address] [address] Lymphocytes/100 WBC (Bld) 22.8 % Normal 20.0-40.0 [facility] Comment on above: Performed By: #### B 12, RF #### [address] [address] #### FERR, GFR, VIDH, 697720, CRP, ANAIFS, CMP, 956495, ANEU, ESR, FE, ADIFF, URIC, CBC, IBC #### [address] [address] Monocyte, Absolute 0.4 10 3/mcL Normal 0.1-1.4 [facility] Comment on above: Performed By: #### B 12, RF #### [address] [address] #### FERR, GFR, VIDH, 365499, CRP, ANAIFS, CMP, 120624, ANEU, ESR, FE, ADIFF, URIC, CBC, IBC #### [address] [address] Monocytes/100 WBC (Bld) 7.5 % Normal 2.0-13.0 [facility] Comment on above: Performed By: #### B 12, RF #### [address] [address] #### FERR, GFR, VIDH, 796725, CRP, ANAIFS, CMP, 278057, ANEU, ESR, FE, ADIFF, URIC, CBC, IBC #### [address] [address] Neutrophils/100 WBC (Bld) 67.8 % Normal 50.0-75.0 [facility] Comment on above: Performed By: #### B 12, RF #### [address] [address] #### FERR, GFR, VIDH, 541089, CRP, ANAIFS, CMP, 924503, ANEU, ESR, FE, ADIFF, URIC, CBC, IBC #### [address] [address] .GFRon 04-30-2025 Estimated Glomerular Filtration Rate 73 ml/min/1.73sqm Normal [facility] Comment on above: Result Comment: Stages of Chronic Kidney Disease (CKD) Stage Description eGFR(ml/min/1.73 sq.m.) CKD 1 Normal kidney function or >=90 normal kindney function with possible kidney damage (ex. Proteinuria) CKD 2 Kidney damage with mild loss 60-89 of kidney function CKD 3a Mild to moderate loss of kidney 45-59 function CKD 3b Moderate to severe loss of 30-44 of kindey function CKD 4 Severe loss of kidney function 15-29 CKD 5 Kidney failure <15 Note: (go live 2024) the eGFR calculation was updated to the 2020 CKD-EPI creatinine equation without a race factor to calculate the eGFR results. Performed By: #### L IPID, CBC, CMP, ADIFF, ANEU, A1C, TSH, GFR #### [address] [address] .NEUABSon 04-30-2025 Neutrophil, Absolute 3.7 10 3/mcL Normal 2.3-8.1 [facility] Comment on above: Performed By: #### L IPID, CBC, CMP, ADIFF, ANEU, A1C, TSH, GFR #### [address] [address] CBCon 04-30-2025 Erythrocyte distribution width (RBC) [Ratio] 12.9 % Normal 11.5-15.5 [facility] Comment on above: Performed By: #### B 12, RF #### [place] [address] #### FERR, GFR, VIDH, 802190, CRP, ANAIFS, CMP, 691183, ANEU, ESR, FE, ADIFF, URIC, CBC, IBC #### [address] [address] Hematocrit (Bld) [Volume fraction] 41.1 % Normal 34.0-46.0 [facility] Comment on above: Performed By: #### B 12, RF #### [place] [address] #### FERR, GFR, VIDH, 751279, CRP, ANAIFS, CMP, 833162, ANEU, ESR, FE, ADIFF, URIC, CBC, IBC #### [address] [address] Hgb 14.0 G/dL Normal 12.0-16.0 [facility] Comment on above: Performed By: #### B 12, RF #### [place] [address] #### FERR, GFR, VIDH, 784281, CRP, ANAIFS, CMP, 027242, ANEU, ESR, FE, ADIFF, URIC, CBC, IBC #### [address] [address] MCH (RBC) [Entitic mass] 31.2 pg Normal 27.0-33.0 [facility] Comment on above: Performed By: #### B 12, RF #### [address] [address] #### FERR, GFR, VIDH, 738430, CRP, ANAIFS, CMP, 772842, ANEU, ESR, FE, ADIFF, URIC, CBC, IBC #### [address] [address] MCHC 34.0 G/dL Normal 32.0-36.0 [facility] Comment on above: Performed By: #### B 12, RF #### [address] [address] #### FERR, GFR, VIDH, 341849, CRP, ANAIFS, CMP, 237556, ANEU, ESR, FE, ADIFF, URIC, CBC, IBC #### [address] [address] MCV (RBC) [Entitic vol] 91.9 fL Normal 80.0-99.0 [facility] Comment on above: Performed By: #### B 12, RF #### [address] [address] #### FERR, GFR, VIDH, 645229, CRP, ANAIFS, CMP, 185963, ANEU, ESR, FE, ADIFF, URIC, CBC, IBC #### [address] [address] Platelet 225 10 3/mcL Normal 150-450 [facility] Comment on above: Performed By: #### B 12, RF #### [address] [address] #### FERR, GFR, VIDH, 026452, CRP, ANAIFS, CMP, 611971, ANEU, ESR, FE, ADIFF, URIC, CBC, IBC #### [address] [address] Platelet mean volume (Bld) [Entitic vol] 8.4 fL Normal 6.6-10.5 [facility] Comment on above: Performed By: #### B 12, RF #### [address] [address] #### FERR, GFR, VIDH, 268280, CRP, ANAIFS, CMP, 897297, ANEU, ESR, FE, ADIFF, URIC, CBC, IBC #### [address] [address] RBC 4.47 10 6/mcL Normal 4.10-5.30 [facility] Comment on above: Performed By: #### B 12, RF #### [address] [address] #### FERR, GFR, VIDH, 524686, CRP, ANAIFS, CMP, 005161, ANEU, ESR, FE, ADIFF, URIC, CBC, IBC #### [address] [address] WBC 5.5 10 3/mcL Normal 4.5-10.8 [facility] Comment on above: Performed By: #### B 12, RF #### [address] [address] #### FERR, GFR, VIDH, 105250, CRP, ANAIFS, CMP, 088499, ANEU, ESR, FE, ADIFF, URIC, CBC, IBC #### [address] [address] CMPon 04-30-2025 Albumin Level 3.4 G/dL Low 3.5-5.0 [facility] Comment on above: Performed By: #### L IPID, CBC, CMP, ADIFF, ANEU, A1C, TSH, GFR #### [address] [address] Albumin/Globulin [Mass ratio] 0.9 {ratio} Low 1.1-2.5 [facility] Comment on above: Performed By: #### L IPID, CBC, CMP, ADIFF, ANEU, A1C, TSH, GFR #### [address] [address] ALP [Catalytic activity/Vol] 49 U/L Normal 40-135 [facility] Comment on above: Performed By: #### L IPID, CBC, CMP, ADIFF, ANEU, A1C, TSH, GFR #### [address] [address] ALT [Catalytic activity/Vol] 27 U/L Normal 14-59 [facility] Comment on above: Performed By: #### L IPID, CBC, CMP, ADIFF, ANEU, A1C, TSH, GFR #### [address] [address] AST [Catalytic activity/Vol] 16 U/L Normal 10-40 [facility] Comment on above: Performed By: #### L IPID, CBC, CMP, ADIFF, ANEU, A1C, TSH, GFR #### [address] [address] Bili Total 0.7 mg/dL Normal 0.2-1.0 [facility] Comment on above: Result Comment: Use of this assay is not recommended for patients undergoing treatment with eltrombopag due to the potential for falsely elevated results. Performed By: #### L IPID, CBC, CMP, ADIFF, ANEU, A1C, TSH, GFR #### [address] [address] BUN/Creatinine Ratio 17 ratio Normal 7-27 [facility] Comment on above: Performed By: #### L IPID, CBC, CMP, ADIFF, ANEU, A1C, TSH, GFR #### [address] [address] Calcium [Mass/Vol] 8.6 mg/dL Normal 8.4-10.2 [facility] Comment on above: Performed By: #### L IPID, CBC, CMP, ADIFF, ANEU, A1C, TSH, GFR #### [address] [address] Chloride [Moles/Vol] 107 mmol/L Normal 98-107 [facility] Comment on above: Performed By: #### L IPID, CBC, CMP, ADIFF, ANEU, A1C, TSH, GFR #### [address] [address] CO2 [Moles/Vol] 27 mmol/L Normal 22-29 [facility] Comment on above: Performed By: #### L IPID, CBC, CMP, ADIFF, ANEU, A1C, TSH, GFR #### [address] [address] Creatinine [Mass/Vol] 0.96 mg/dL High 0.51-0.[address] [facility] Comment on above: Performed By: #### L IPID, CBC, CMP, ADIFF, ANEU, A1C, TSH, GFR #### [address] [address] Electrolyte Balance 8.0 mEq/L Normal 4.0-15.0 [facility] Comment on above: Performed By: #### L IPID, CBC, CMP, ADIFF, ANEU, A1C, TSH, GFR #### [address] [address] Globulin 3.9 G/dL Normal 2.7-4.4 [facility] Comment on above: Performed By: #### L IPID, CBC, CMP, ADIFF, ANEU, A1C, TSH, GFR #### [address] [address] Glucose [Mass/Vol] 97 mg/dL Normal 70-105 [facility] Comment on above: Performed By: #### L IPID, CBC, CMP, ADIFF, ANEU, A1C, TSH, GFR #### [address] [address] Potassium [Moles/Vol] 3.7 mmol/L Normal 3.5-5.[address] [facility] Comment on above: Performed By: #### L IPID, CBC, CMP, ADIFF, ANEU, A1C, TSH, GFR #### [address] [address] Sodium [Moles/Vol] 142 mmol/L Normal 136-145 [facility] Comment on above: Performed By: #### L IPID, CBC, CMP, ADIFF, ANEU, A1C, TSH, GFR #### [address] [address] Total Protein 7.3 G/dL Normal 6.4-8.2 [facility] Comment on above: Performed By: #### L IPID, CBC, CMP, ADIFF, ANEU, A1C, TSH, GFR #### [address] [address] Urea nitrogen [Mass/Vol] 16 mg/dL Normal 7-18 [facility] Comment on above: Performed By: #### L IPID, CBC, CMP, ADIFF, ANEU, A1C, TSH, GFR #### [address] [address] CRPon 04-30-2025 C-Reactive Protein 0.8 mg/dL High 0.0-0.3 [facility] Comment on above: Performed By: #### L IPID, CBC, CMP, ADIFF, ANEU, A1C, TSH, GFR #### [address] [address] ESRon 04-30-2025 Erythrocyte Sed Rate 27 mm/hr High 0-20 [facility] Comment on above: Performed By: #### L IPID, CBC, CMP, ADIFF, ANEU, A1C, TSH, GFR #### [address] [address] FEon 04-30-2025 Iron [Mass/Vol] 53 ug/dL Normal 50-170 [facility] Comment on above: Performed By: #### L IPID, CBC, CMP, ADIFF, ANEU, A1C, TSH, GFR #### [address] [address] Luis 04-30-2025 Ferritin [Mass/Vol] 430.0 ng/mL High 8.0-252.0 [facility] Comment on above: Performed By: #### L IPID, CBC, CMP, ADIFF, ANEU, A1C, TSH, GFR #### [facility] [address] [place], [place] [address] IBCon 04-30-2025 TIBC 259 mcg/dL Normal 250-450 [facility] Comment on above: Performed By: #### L IPID, CBC, CMP, ADIFF, ANEU, A1C, TSH, GFR #### [address] [place], [place] [address] LABORATORYOrdered By: SYSTEM SYSTEM on 04-30-2025 25-hydroxyvitamin D3 [Mass/Vol] 31.0 ng/mL Invalid Interpretation Code AO ADM SS Comment on above: Interpretive Data: I nterpretive Values Based on Total 25(OH) Vitamin D: Deficient <20 ng/mL Insufficient 20 - <30 ng/mL Sufficient 30-100 ng/mL Albumin BCP dye [Mass/Vol] 3.4 G/dL Low 3.5 - 5.0 G/dL AO ADM SS Albumin/Globulin [Mass ratio] 0.9 {ratio} Low 1.1 - 2.5 ratio AO ADM SS ALP [Catalytic activity/Vol] 49 U/L Normal 40 - 135 U/L AO ADM SS ALT With P-5'-P [Catalytic activity/Vol] 27 U/L Normal 14 - 59 U/L AO ADM SS AST With P-5'-P [Catalytic activity/Vol] 16 U/L Normal 10 - 40 U/L AO ADM SS Basophils (Bld) [#/Vol] 0.0 103/mcL Normal 0.0 - 0.3 10^3/mcL AO Workflow SS Basophils/100 WBC (Bld) 0.4 % Normal 0.0 - 2.5 % AO Workflow SS Bilirubin [Mass/Vol] 0.7 mg/dL Normal 0.2 - 1 .0 mg/dL AO ADM SS Comment on above: Interpretive Data: U se of this assay is not recommended for patients undergoing treatment with eltrombopag due to the potential for falsely elevated results. Calcium [Mass/Vol] 8.6 mg/dL Normal 8.4 - 10. 2 mg/dL AO ADM SS Chloride [Moles/Vol] 107 mmol/L Normal 98 - 10 7 mmol/L AO ADM SS CO2 [Moles/Vol] 27 mmol/L Normal 22 - 29 mmol/L AO ADM SS Cobalamin (Vitamin B12) [Mass/Vol] 466 pg/mL Normal 211 - 911 pg/mL AH ADM SS Creatinine [Mass/Vol] 0.96 mg/dL High 0.51 - 0.95 mg/dL AO ADM SS CRP [Mass/Vol] 0.8 mg/dL High 0.0 - 0.3 mg/dL AO ADM SS Electrolyte Balance 8.0 mEq/L Normal 4.0 - 15 .0 mEq/L AO ADM SS Eosinophil, Absolute 0.1 103/mcL Normal 0.0 - 0 .7 10^3/mcL AO Workflow SS Eosinophils/100 WBC (Bld) 1.5 % Normal 0.0 - 6.0 % AO Workflow SS Erythrocyte distribution width (RBC) [Ratio] 12.9 % Normal 11.5 - 15.5 % AO Workflow SS Estimated Glomerular Filtration Rate 73 ml/min/1.73sqm Invalid Interpretation Code AO Chemistry S Comment on above: Interpretive Data: Stages of Chronic Kidney Disease (CKD) Stage Description eGFR(ml/min/1.73 sq.m.) CKD 1 Normal kidney function or >=90 normal kindney function with possible kidney damage (ex. Proteinuria) CKD 2 Kidney damage with mild loss 60-89 of kidney function CKD 3a Mild to moderate loss of kidney 45-59 function CKD 3b Moderate to severe loss of 30-44 of kindey function CKD 4 Severe loss of kidney function 15-29 CKD 5 Kidney failure <15 Note: (go live 2024) the eGFR calculation was updated to the 2020 CKD-EPI creatinine equation without a race factor to calculate the eGFR results. Ferritin [Mass/Vol] 430.0 ng/mL High 8.0 - 25 2.0 ng/mL AO ADM SS Globulin 3.9 G/dL Normal 2.7 - 4.4 G/dL AO ADM SS Glucose [Mass/Vol] 97 mg/dL Normal 70 - 105 mg/dL AO ADM SS Hematocrit (Bld) [Volume fraction] 41.1 % Normal 34.0 - 46.0 % AO Workflow SS Hemoglobin (Bld) [Mass/Vol] 14.0 G/dL Normal 12.0 - 16.0 G/dL AO Workflow SS Iron [Mass/Vol] 53 ug/dL Normal 50 - 170 mcg/dL AO ADM SS Iron binding capacity [Mass/Vol] 259 mcg/dL Normal 250 - 450 mcg/dL AO ADM SS Lymphocytes (Bld) [#/Vol] 1.2 103/mcL Normal 0.9 - 4.3 10^3/mcL AO Workflow SS Lymphocytes/100 WBC (Bld) 22.8 % Normal 20.0 - 40.0 % AO Workflow SS MCH (RBC) [Entitic mass] 31.2 pg Normal 27.0 - 33.0 pg AO Workflow SS MCHC 34.0 G/dL Normal 32.0 - 36.0 G/dL AO Workflow SS MCV (RBC) [Entitic vol] 91.9 fL Normal 80.0 - 99.0 fL AO Workflow SS Monocytes (Bld) [#/Vol] 0.4 103/mcL Normal 0.1 - 1.4 10^3/mcL AO Workflow SS Monocytes/100 WBC (Bld) 7.5 % Normal 2.0 - 13.0 % AO Workflow SS Neutrophils (Bld) [#/Vol] 3.7 103/mcL Normal 2.3 - 8.1 10^3/mcL AO Workflow SS Neutrophils/100 WBC (Bld) 67.8 % Normal 50.0 - 75.0 % AO Workflow SS Platelet mean volume (Bld) [Entitic vol] 8.4 fL Normal 6.6 - 10.5 fL AO Workflow SS Platelets (Bld) [#/Vol] 225 103/mcL Normal 150 - 450 10^3/mcL AO Workflow SS Potassium [Moles/Vol] 3.7 mmol/L Normal 3.5 - 5.1 mmol/L AO ADM SS Protein [Mass/Vol] 7.3 G/dL Normal 6.4 - 8.2 G/dL AO ADM SS RBC (Bld) [#/Vol] 4.47 106/mcL Normal 4.10 - 5.3 0 10^6/mcL AO Workflow SS Sodium [Moles/Vol] 142 mmol/L Normal 136 - 145 mmol/L AO ADM SS Urea nitrogen [Mass/Vol] 16 mg/dL Normal 7 - 18 mg/dL AO ADM SS Urea nitrogen/Creatinine [Mass ratio] 17 ratio Normal 7 - 27 ratio AO ADM SS Uric Acid Lvl 6.2 mg/dL Normal 2.6 - 6.2 mg/dL AO ADM SS WBC (Bld) [#/Vol] 5.5 103/mcL Normal 4.5 - 10.8 10^3/mcL AO Workflow SS LABORATORYOrdered By: Daniella Bang on 04-30-2025 ESR Photometric method (Bld) [Velocity] 27 mm/hr High 0 - 20 mm/hr AO Man Heme SS URICon 04-30-2025 Uric Acid Lvl 6.2 mg/dL Normal 2.6-6.2 [facility] Comment on above: Performed By: #### L IPID, CBC, CMP, ADIFF, ANEU, A1C, TSH, GFR #### [facility] [address] [place], [place] [address] VIDHon 04-30-2025 Vit. D 25-Hydroxy 31.0 ng/mL Normal [facility] Comment on above: Result Comment: Inte rpretive Values Based on Total 25(OH) Vitamin D: Deficient <20 ng/mL Insufficient 20 - <30 ng/mL Sufficient 30-100 ng/mL Performed By: #### L IPID, CBC, CMP, ADIFF, ANEU, A1C, TSH, GFR #### [facility] [address] [place], [place] [address] CNOVon 12-21-2024 CNOV Office Visit (GENSWS ) TAMEKA ALLAN ([id number]) 1975 F Date Time Provider Department 12/21/24 8:00 AM LUDY LEE GENSWS During your visit today, we recorded the following information about you: Ludy Lee APRN.CNP 12/21/2024 8:18 AM Signed FOLLOW UP VISIT - ENDOSCOPY Tameka Allan 1975 [id number] REFERRING PHYSICIAN: No referring provider defined for this encounter. Tameka Allan is a patient I am following for colon cancer- family history AND hx of polyps. Dr. Clifford performed lower endoscopy on 12/13/24. The patient was found to have Impression: - One small (4-6 mm) polyp in the descending colon, removed with a cold snare. Resected and retrieved. - Non-bleeding internal hemorrhoids. - The examination was otherwise normal. Pathology demonstrated: FINAL DIAGNOSIS A. Ascending colon, polypectomy: - Focal changes suggestive of hyperplastic polyp. - Negative for dysplasia. The patient notes no complaints since the procedure. VITALS: There were no vitals taken for this visit. General: patient is alert, cooperative, pleasant and in no acute distress On examination, the abdomen is benign. Assessment ASSESSMENT/PLAN: 1. Hyperplastic polyp of ascending colon - ICD9: 211.3, ICD10: K63.5 The operative findings and pathology report were reviewed with the patient, and the patient has had the opportunity to ask questions and have questions answered. If the patient notes any problems or changes in bowel function, the patient should contact me immediately. Otherwise I recommend follow up endoscopy in 5 years. HM updated and recall letter generated. Discussed treatment plan and patient voices understanding. Patient's questions answered appropriately. Medications and potential side effects were discussed and patient voices understanding. Return to the office as scheduled or as needed for worsening/no improvement. Ludy Lee APRN.CAMILLA Allergies As of Date: 12/21/2024 Noted Allergy Reaction SEASONAL ALLERGIES 05/23/2017 3 - Cough Date Reviewed: 12/21/2024 Reviewed by: Ludy Lee APRN.MANAGER [employer]ANNING - Fully Assessed Reason for Visit: Follow Up [171] Primary Visit Diagnosis:Hyperplastic polyp of ascending colon [K63.5] Prescriptions as of 12/21/2024 - tirzepatide (MOUNJARO) 15 mg/0.5 mL pen injector Inject 15 mg subcutaneously one time a week. - CPAP/BIPAP/OTHER AutoPAP 5-20 cmH2O Mask per patient preference Lifetime supplies Dx: HALIMA - levonorgestrel (LILETTA) 20.1 mcg/24 hrs (6 yrs) 52 mg IUD 1 Each by INTRAUTERINE route as directed. put in at [facility] Problem List As Of Date 12/21/2024 Noted Resolved Inflammatory breast cancer, right (HCC) [C50.91*11/09/2015 Screen for colon cancer [Z12.11] 11/22/2016 BMI 40.0-44.9, adult (HCC) [Z68.41] 09/10/2018 Family history of lung cancer [Z80.1] 08/29/2015 Family history of colon cancer in father [Z80.0]08/29/2015 Family history of melanoma [Z80.8] 08/29/2015 Family history of ovarian cancer [Z80.41] 08/29/2015 History of right mastectomy [Z90.11] 11/05/2021 Calculus of gallbladder with cholecystitis [K80*08/28/2022 08/28/2022 RUQ pain [R10.11] 08/28/2022 08/28/2022 BRCA negative [Z13.71] 2014 HALIMA (obstructive sleep apnea) [G47.33] 05/30/2023 Diabetes mellitus (HCC) [E11.9] Class 3 severe obesity with serious comorbidity*11/17/2023 Encounter Status:Closed by LUDY LEE on 12/21/24 [facility] [id number] 12-13-2024 [id number] HNO ID: [id number] Author: CUCA FERGUSON RN Service: ? Author Type: Registered Nurse Type: [id number] Filed: 12/13/2024 08:36 Note Text: The patient received a copy of Colonoscopy discharge instructions that contain information for how to contact the physician who performed the procedure and when to seek medical care. Normal [facility] Colonoscopyon 12-13-2024 Colonoscopy [facility] Gastrointestinal Endoscopy Patient Name: Tameka Allan Procedure Date: 12/13/2024 7:42 AM Date of : 1975 Admit Type: Outpatient Age: 49 Gender: Female Note Status: Finalized Procedure: Colonoscopy Indications: Screening in patient at increased risk: Family history of 1st-degree relative with colorectal cancer before age 60 years Providers: Rico Clifford MD Patient Profile: This is a 49 year old female. Refer to note in patient chart for documentation of history and physical. Last Colonoscopy: December 2019. Referring Physician: Ludy Lee (Referring MD) Medicines: Fentanyl 100 micrograms IV, Midazolam 5 mg IV, Diphenhydramine 50 mg IV Complications: No immediate complications. Estimated blood loss: Minimal. Requesting Provider: Procedure: Pre-Anesthesia Assessment: - Prior to the procedure, a History and Physical was performed, and patient medications and allergies were reviewed. The patient's tolerance of previous anesthesia was also reviewed. The risks and benefits of the procedure and the sedation options and risks were discussed with the patient. All questions were answered, and informed consent was obtained. Prior Anticoagulants: The patient has taken no anticoagulant or antiplatelet agents. ASA Grade Assessment: III - A patient with severe systemic disease. After reviewing the risks and benefits, the patient was deemed in satisfactory condition to undergo the procedure. After I obtained informed consent, the scope was passed under direct vision. Throughout the procedure, the patient's blood pressure, pulse, and oxygen saturations were monitored continuously. The Colonoscope was introduced through the anus and advanced to 3 cm into the ileum. The colonoscopy was performed without difficulty. The patient tolerated the procedure well. The quality of the bowel preparation was adequate to identify polyps greater than 5 mm in size. The terminal ileum, ileocecal valve, appendiceal orifice, and rectum were photographed. Moderate Sedation: The administration of moderate sedation was initiated at 08:01. Moderate (conscious) sedation was personally administered by the endoscopist. The following parameters were monitored: oxygen saturation, heart rate, blood pressure, respiratory rate, EKG, adequacy of pulmonary ventilation, and response to care. Total physician intraservice time was 21 minutes. Findings: The perianal and digital rectal examinations were normal. A small (4-6 mm) polyp was found in the descending colon. The polyp was sessile. The polyp was removed with a cold snare. Resection and retrieval were complete. Non-bleeding internal hemorrhoids were found during retroflexion. The hemorrhoids were mild and small. The exam was otherwise without abnormality. Impression: - One small (4-6 mm) polyp in the descending colon, removed with a cold snare. Resected and retrieved. - Non-bleeding internal hemorrhoids. - The examination was otherwise normal. Recommendation: - Patient has a contact number available for emergencies. The signs and symptoms of potential delayed complications were discussed with the patient. Return to normal activities tomorrow. Written discharge instructions were provided to the patient. - Resume previous diet. - Continue present medications. - Await pathology results. - Repeat colonoscopy in 5 years for surveillance. - Return to nurse practitioner at appointment to be scheduled. Procedure Code(s): --- Professional --- 37854, Colonoscopy, flexible; with removal of tumor(s), polyp(s), or other lesion(s) by snare technique G0500, Moderate sedation services provided by the same physician or other qualified health pediatric acute care unit nurse performing a gastrointestinal endoscopic service that sedation supports, requiring the presence of an independent trained observer to assist in the monitoring of the patient's level of consciousness and physiological status; initial 15 minutes of intra-service time; patient age 5 years or older (additional time may be reported with 36572, as appropriate) Diagnosis Code(s): --- Professional --- Z12.11, Encounter for screening for malignant neoplasm of colon Z80.0, Family history of malignant neoplasm of digestive organs D12.4, Benign neoplasm of descending colon K64.8, Other hemorrhoids CPT copyright 2020 [employer]. All rights reserved. The codes documented in this report are preliminary and upon systems integrator review may be revised to meet current compliance requirements. Attending Participation: I personally performed the entire procedure. Scope In: 8:06:39 AM Scope Out: 8:22:13 AM MD Rico Fenton MD 12/13/2024 8:27:23 AM This report has been signed electronically by Rico Clifford MD Number of Addenda: 0 Note Initiated On: 12/13/2024 7:42 AM Estimated Blood Loss: Estimat (more content not included)... Normal [facility] Colonoscopy Study observatio non 12-13-2024 [facility] Gastrointestinal Endoscopy Patient Name: Tameka Allan Procedure Date: 12/13/2024 7:42 AM Date of : 1975 Admit Type: Outpatient Age: 49 Gender: Female Note Status: Finalized Procedure: Colonoscopy Indications: Screening in patient at increased risk: Family history of 1st-degree relative with colorectal cancer before age 60 years Providers: Rico Clifford MD Patient Profile: This is a 49 year old female. Refer to note in patient chart for documentation of history and physical. Last Colonoscopy: December 2019. Referring Physician: Ludy Lee (Referring ) Medicines: Fentanyl 100 micrograms IV, Midazolam 5 mg IV, Diphenhydramine 50 mg IV Complications: No immediate complications. Estimated blood loss: Minimal. Requesting Provider: Procedure: Pre-Anesthesia Assessment: - Prior to the procedure, a History and Physical was performed, and patient medications and allergies were reviewed. The patient's tolerance of previous anesthesia was also reviewed. The risks and benefits of the procedure and the sedation options and risks were discussed with the patient. All questions were answered, and informed consent was obtained. Prior Anticoagulants: The patient has taken no anticoagulant or antiplatelet agents. ASA Grade Assessment: III - A patient with severe systemic disease. After reviewing the risks and benefits, the patient was deemed in satisfactory condition to undergo the procedure. After I obtained informed consent, the scope was passed under direct vision. Throughout the procedure, the patient's blood pressure, pulse, and oxygen saturations were monitored continuously. The Colonoscope was introduced through the anus and advanced to 3 cm into the ileum. The colonoscopy was performed without difficulty. The patient tolerated the procedure well. The quality of the bowel preparation was adequate to identify polyps greater than 5 mm in size. The terminal ileum, ileocecal valve, appendiceal orifice, and rectum were photographed. Moderate Sedation: The administration of moderate sedation was initiated at 08:01. Moderate (conscious) sedation was personally administered by the endoscopist. The following parameters were monitored: oxygen saturation, heart rate, blood pressure, respiratory rate, EKG, adequacy of pulmonary ventilation, and response to care. Total physician intraservice time was 21 minutes. Findings: The perianal and digital rectal examinations were normal. A small (4-6 mm) polyp was found in the descending colon. The polyp was sessile. The polyp was removed with a cold snare. Resection and retrieval were complete. Non-bleeding internal hemorrhoids were found during retroflexion. The hemorrhoids were mild and small. The exam was otherwise without abnormality. Impression: - One small (4-6 mm) polyp in the descending colon, removed with a cold snare. Resected and retrieved. - Non-bleeding internal hemorrhoids. - The examination was otherwise normal. Recommendation: - Patient has a contact number available for emergencies. The signs and symptoms of potential delayed complications were discussed with the patient. Return to normal activities tomorrow. Written discharge instructions were provided to the patient. - Resume previous diet. - Continue present medications. - Await pathology results. - Repeat colonoscopy in 5 years for surveillance. - Return to nurse practitioner at appointment to be scheduled. Procedure Code(s): --- Professional --- 08734, Colonoscopy, flexible; with removal of tumor(s), polyp(s), or other lesion(s) by snare technique G0500, Moderate sedation services provided by the (more content not included)... [facility]OVATION [facility] Radiology Study observation (narrative) [facility] HISTORY PHYSICALon HISTORY PHYSICAL HNO ID: [id number] Author: RICO CLIFFORD MD Service: General Surgery Author Type: Physician Type: H&P Filed: 12/13/2024 07:48 Note Text: HISTORY AND PHYSICAL Tameka Allan : 1975 REFERRING PHYSICIAN: No referring provider defined for this encounter. CHIEF COMPLAINT: Patient presents with: Cancer Surveillance: Colonoscopy consultation HPI: Taemka is a 48 year old female referred for endoscopy. Tameka notes due for colon cancer screening, family hx of colon cancer in father AND personal hx of polyps(2017). Tameka denies abdominal pain.. Tameka denies diarrhea. Tameka denies constipation. Tameka denies a change in bowel habits. Tameka denies melena. Tameka denies bright red blood per rectum. Tameka denies hemorrhoids. Tameka denies heartburn. Tameka denies dysphagia. Tameka denies a history of ulcers/ peptic ulcer disease. Tameka's medical hx is significant for obesity, HALIMA c/w CPAP, T2DM and inflammatory breast cancer (2016). Tameka has undergone prior endoscopy. Last colonoscopy was 12/[address] Hanna at [facility]. Sedation:Fentanyl 100 micrograms IV, Midazolam 5 mg IV Impression: - The entire examined colon is normal. - No specimens collected. CURRENT MEDICATIONS Current Outpatient Medications Medication Sig tirzepatide (MOUNJARO) 15 mg/0.5 mL pen injector Inject 15 mg subcutaneously one time a week. CPAP/BIPAP/OTHER AutoPAP 5-20 cmH2O Mask per patient preference Lifetime supplies Dx: HALIMA levonorgestrel (LILETTA) 20.1 mcg/24 hrs (6 yrs) 52 mg IUD 1 Each by INTRAUTERINE route as directed. put in at [facility] peg 3350-Electrolytes (GOLYTELY) 236-22.74-6.74 -5.86 gram suspension Take 4,000 mL by mouth one time only for 1 dose. Refer to printed prep instructions from your provider. No current facility-administered medications for this visit. ALLERGIES: Seasonal Allergies PAST MEDICAL HISTORY PAST MEDICAL HISTORY Diagnosis Date Atypical mole Benign colon polyp BRCA negative 2014 1 AND 2 Diabetes mellitus (HCC) Diabetes mellitus (HCC) Inflammatory breast cancer right breast, stage 3C- in lymphnodes- triple negative Right tibial fracture Snoring PAST SURGICAL HISTORY PAST SURGICAL HISTORY Procedure Laterality Date BREAST BIOPSY 07/28/2015 COLONOSCOPY FLX DX W/COLLJ SPEC WHEN PFRMD 11/19/2013 Colonoscopy COLONOSCOPY FLX DX W/COLLJ SPEC WHEN PFRMD N/A 11/22/2016 COLONOSCOPY FLX DX W/COLLJ SPEC WHEN PFRMD 12/13/2019 Colonoscopy 5 year interval EXTRACTION, ERUPTED TOOTH OR EXPOSED ROOT (ELEVATION AND/OR FORCEPS REMOVAL) 1998 wisdom teeth INSERT INTRAUTERINE DEVICE 07/05/2015, 06/22/2020 LAPAROSCOPIC CHOLECYSTECTOMY 08/30/2022 MAST MODF RAD W/AX LYMPH NOD W/WO PECT/ABELARDO MIN Right 02/05/2016 SALPINGECTOMY COMPLETE/PARTIAL UNI/BI SPX 06/22/2020 bilateral salpingectomy, sterilization, IUD insertion FAMILY HISTORY FAMILY HISTORY Problem Relation Age of Onset Hypertension Mother 80 in Colon Cancer Father passed in 1983 in his 50's other (precancerous breast lesion) Maternal Grandmother 80 Ovarian cancer Paternal Grandmother Other 2nd degree relative Cancer Paternal Grandfather kidney Breast Cancer Other 2nd degree relative Ovarian cancer Other SOCIAL HISTORY Social History Tobacco Use Smoking status: Former Current packs/day: 0.00 Average packs/day: 0.3 packs/day for 11.4 years (2.8 ttl pk-yrs) Types: Cigarettes Start date: 1995 Quit date: 02/20/2007 Years since quittin.7 Passive exposure: Past Smokeless tobacco: Never Vaping Use Vaping status: Never Used Substance Use Topics Alcohol use: Yes Alcohol/week: 2.0 standard drinks of alcohol Types: 1 Glasses of wine, 1 Cans of beer per week Comment: occasional Drug use: No REVIEW OF SYMPTOMS: The review of systems data was entered by the nurse and reviewed by me SEE NURSING NOTE PHYSICAL EXAMINATION: General: The patient is 48 year old, female well nourished, well hydrated in no acute distress. The patient is oriented to time, place, and person. VITALS: Blood pressure 118/76, pulse 78, temperature 36.2 ?C (97.1 ?F), resp. rate 17, height 166.4 cm (5' 5.5), weight 103.2 kg (227 lb 9.6 oz), last menstrual period 07/05/2015, SpO2 100%. Body mass index is 37.3 kg/m?. HEENT: Normal cephalic, ataumatic, pupils are equally round, sclera are anicteric, mucous membranes are moist, oropharynx is clear. Neck has no masses, asymmetry or lymphadenopathy. Respiratory: Clear to auscultation and percussion. Normal respiratory excursion and pattern. Cardiac: Examination is regular rate and rhythm. Normal S1/S2 Abdominal exam: Soft, nontender, with no palpable masses. No hepatosplenomegaly. No palpable hernias. Extremities: no clubbing, cyanosis or edema. No adenopathy. LABORATORY VALUES: As Noted RADIOLOGIC STUDIES: As Noted Assessment IMPRESSION: screen for colon cancer, family history of colon cancer in father (more content not included)... Normal [facility] Pathology biopsy report Ajith (Tiss)on 12-13-2024 AP DISCLAIMER Normal [facility] Comment on above: Order Comment: Speci men Type: TISSUE SPECIMEN Ordering Facility: [facility] Address: [address] [place] [address] Result Comment: Meredith ortiz Developed Test (LDT) Disclaimer: Performance characteristics of immunohistochemical, immunofluorescent, and chromogenic in-situ hybridization tests have been determined by the performing laboratory within [facility]'s [facility] Pathology and Laboratory Medicine Department ([facility], [facility], [facility], [facility], [facility], [facility], or [facility]) in a manner consistent with CLIA requirements. One or more of these tests may not have been cleared or approved by the FDA. [facility] is regulated under CLIA as qualified to perform high-complexity testing. These tests are used for clinical purposes. These should not be regarded as investigational or for research. Positive and negative controls stain appropriately. Performed By: #### 6 6121-5 #### [facility] CLIA [id number] [address] [place] [address] LAB CLIA [id number] [address] [place] [address] OF [place] CASE REPORT Normal [facility] Comment on above: Order Comment: Speci men Type: TISSUE SPECIMEN Ordering Facility: [facility] Address: [address] [place] [address] Result Comment: [facility] Pathology Report Case: [id number] Authorizing Provider: Rico Clifford MD Collected: 12/13/2024 08:16 AM Ordering Location: Ambulatory Surgery Received: 12/13/2024 12:19 PM Pathologist: Jamel Padilla MD Specimen: Colon, Descending, Polyp Performed By: #### 6 6121-5 #### [facility] CLIA [id number] [address] [place] [address] LAB CLIA [id number] [address] [place] [address] FINAL DIAGNOSIS Normal [facility] Comment on above: Order Comment: Speci men Type: TISSUE SPECIMEN Ordering Facility: [facility] Address: [address] [place] [address] Result Comment: A. A scending colon, polypectomy: - Focal changes suggestive of hyperplastic polyp. - Negative for dysplasia. at 1247 EST Performed By: #### 6 6121-5 #### [facility] CLIA [id number] [address] [place] [address] OF [facility] CLIA [id number] [address] [place] [address] OF [facility] FINAL PERFORMING LAB Normal [facility] Comment on above: Order Comment: Speci men Type: TISSUE SPECIMEN Ordering Facility: [facility] Address: [address] [place] [address] Result Comment: Diag nostic interpretation performed at: [facility], [address] [place] [address] CLIA# [id number] Manager Car: Tameka Larson MD Performed By: #### 6 6121-5 #### [facility] CLIA [id number] [address] [place] [address] [place] [facility] CLIA [id number] [address] [place] [address] STATES OF [place] GROSS DESCRIPTION Normal [facility] Comment on above: Order Comment: Speci men Type: TISSUE SPECIMEN Ordering Facility: [facility] Address: [address] [place] [address] Result Comment: Riri villanueva, Natalia, Polyp Received in formalin are two pieces of bundy, soft tissue aggregating to 0.9 x 0.2 x 0.1 cm. Totally submitted in one cassette. DB December 13, 2024 5:33 [place] [address] Performed By: #### 6 6121-5 #### [facility] IA [id number] [address] [place] [address] STATES OF [place] [facility] CLIA [id number] [address] [place] [address] OF [place] CNOVon 11-11-2024 CNOV Office Visit (HEMBAK ) TAMEKA ALLAN ([id number]) 1975 F Date Time Provider Department 11/11/24 1:30 PM SHANIQUE JACINTO During your visit today, we recorded the following information about you: Pulse Blood pressure Weight Height 76/minute 106/71 103 kg 1.664 Subha Bob LPN 12/20/2024 9:06 PM Signed Tameka Allan is a 48 year old female who presents to follow up for Yearly Exam (CBE) and Results Pt denies breast pain, redness, left breast nipple drainage and palpable masses. Pt c/o muscle spasms of right back and right shoulder. Pt to discuss massages. CORDELL Palumbo Amy, APRN.CAMILLA 12/20/2024 9:06 PM Signed Shanique Jacinto APRN-CAMILLA, OCN Breast [facility] [address] [place] [id number] Date of Visit: 11/11/2024 Patient Name: Tameka Allan Date of : 1975 Established Visit Breast Surgeon: Sade Wesley MD Medical Oncologist: Janna Hay MD SUBJECTIVE Chief Complaint: Patient presents with: Yearly Exam: CBE Results HPI Tameka Allan is a 48 year old female who presents today for review of recent (11/08/2024) annual breast imaging and clinical breast exam. She is an established [facility] patient and was last seen in the Breast Center 11/07/2023. She denies current breast concerns including palpable breast lumps or masses, enlarged lymph nodes, pain, tenderness, skin changes, erythema, nipple discharge or breast trauma. Breast history includes: RIGHT axilla core biopsies ---> invasive poorly differentiated carcinoma. Associated necrosis and fibrous parenchyma. Adipose tissue. RIGHT breast core biopsies ---> invasive poorly differentiated carcinoma. ER negative / FL negative / HER2 negative by FISH Clinical staging: IIIB - T4d N1 M0 (Dr. Hay) Genetic testing negative Neoadjuvant AC 4 cycles followed by 12 weekly Taxol treatments, complete clinical response 02/05/2016 RIGHT modified radical mastectomy ---> no evidence of residual malignancy identified. RIGHT axillary lymph node dissection ---> 16 lymph nodes negative for malignancy (0/). Pathologic staging: ypT0 ypN0 Post-mastectomy XRT completed (Dr. Leodan Zapien) Interim history: non-surgical weight loss continues / goal = weight loss of 100 lbs There are no exam notes on file for this visit. No question data found. Family and personal medical histories reviewed and updated. REVIEW OF SYSTEMS: Complete 10 system ROS done and negative except as stated above in the HPI. Current Outpatient Medications Medication Sig Dispense Refill CPAP/BIPAP/OTHER AutoPAP 5-20 cmH2O Mask per patient preference Lifetime supplies Dx: HALIMA 1 Each 0 levonorgestrel (LILETTA) 20.1 mcg/24 hrs (6 yrs) 52 mg IUD 1 Each by INTRAUTERINE route as directed. put in at [facility] 1 Intra Uterine Device 0 tirzepatide (MOUNJARO) 15 mg/0.5 mL pen injector Inject 15 mg subcutaneously one time a week. 2 mL 2 No current facility-administered medications for this visit. I have performed the physical exam on 11/11/2024 - all new findings noted below. PAST MEDICAL HISTORY Diagnosis Date Atypical mole Benign colon polyp BRCA negative 2014 1 AND 2 Diabetes mellitus (HCC) Diabetes mellitus (HCC) Inflammatory breast cancer right breast, stage 3C- in lymphnodes- triple negative Right tibial fracture Snoring PAST SURGICAL HISTORY Procedure Laterality Date BREAST BIOPSY 07/28/2015 COLONOSCOPY 12/13/2024 COLONOSCOPY FLX DX W/COLLJ SPEC WHEN PFRMD 11/19/2013 Colonoscopy COLONOSCOPY FLX DX W/COLLJ SPEC WHEN PFRMD N/A 11/22/2016 COLONOSCOPY FLX DX W/COLLJ SPEC WHEN PFRMD 12/13/2019 Colonoscopy 5 year interval EXTRACTION, ERUPTED TOOTH OR EXPOSED ROOT (ELEVATION AND/OR FORCEPS REMOVAL) 1998 wisdom teeth INSERT INTRAUTERINE DEVICE 07/05/2015, 06/22/2020 LAPAROSCOPIC CHOLECYSTECTOMY 08/30/2022 MAST MODF RAD W/AX LYMPH NOD W/WO PECT/ABELARDO MIN Right 02/05/2016 SALPINGECTOMY COMPLETE/PARTIAL UNI/BI SPX 06/22/2020 bilateral salpingectomy, sterilization, IUD insertion Social History Tobacco Use Smoking status: Former Current packs/day: 0.00 Average packs/day: 0.3 packs/day for 11.4 years (2.8 ttl pk-yrs) Types: Cigarettes Start date: 1995 Quit date: 02/20/2007 Years since quittin.8 Passive exposure: Past Smokeless tobacco: Never Vaping Use Vaping status: Never Used Substance Use Topics Alcohol use: Yes Alcohol/week: 2.0 standard drinks of alcohol Types: 1 Glasses of wine, 1 Cans of beer per week Comment: occasional Drug use: No FAMILY HISTORY Problem Relation Age of Onset Hypertension Mother 80 in '24 Colon Cancer Father passed in 1983 in his 50's other (precancerous breast lesion) Maternal Grandmother 80 Ovarian cancer Paternal Grandmother Other 2nd degree relative Cancer Patern (more content not included)... Normal [facility] CNOVon 11-08-2024 CNOV Office Visit (GENSWS ) TAMEKA ALLAN ([id number]) 1975 F Date Time Provider Department 11/08/24 9:30 AM LUDY LEE GENSWS During your visit today, we recorded the following information about you: Temperature Pulse Respiration Blood pressure 97.1 degrees 78/minute 17/minute 118/76 Weight Height 103.2 kg 1.664 m Ludy Lee APRN.MANAGER BUSINESS PLANNING 11/08/2024 9:47 AM Signed HISTORY AND PHYSICAL Tameka Allan : 1975 REFERRING PHYSICIAN: No referring provider defined for this encounter. CHIEF COMPLAINT: Patient presents with: Cancer Surveillance: Colonoscopy consultation HPI: Tameka is a 48 year old female referred for endoscopy. Tameka notes due for colon cancer screening, family hx of colon cancer in father AND personal hx of polyps(2017). Tameka denies abdominal pain.. Tameka denies diarrhea. Tameka denies constipation. Tameka denies a change in bowel habits. Tameka denies melena. Tameka denies bright red blood per rectum. Tameka denies hemorrhoids. Tameka denies heartburn. Tameka denies dysphagia. Tameka denies a history of ulcers/ peptic ulcer disease. Tameka's medical hx is significant for obesity, HALIMA c/w CPAP, T2DM and inflammatory breast cancer (2016). Tameka has undergone prior endoscopy. Last colonoscopy was 12/[address] Hanna at [facility]. Sedation:Fentanyl 100 micrograms IV, Midazolam 5 mg IV Impression: - The entire examined colon is normal. - No specimens collected. Current Outpatient Medications Medication Sig tirzepatide (MOUNJARO) 15 mg/0.5 mL pen injector Inject 15 mg subcutaneously one time a week. CPAP/BIPAP/OTHER AutoPAP 5-20 cmH2O Mask per patient preference Lifetime supplies Dx: HALIMA levonorgestrel (LILETTA) 20.1 mcg/24 hrs (6 yrs) 52 mg IUD 1 Each by INTRAUTERINE route as directed. put in at [facility] peg 3350-Electrolytes (GOLYTELY) 236-22.74-6.74 -5.86 gram suspension Take 4,000 mL by mouth one time only for 1 dose. Refer to printed prep instructions from your provider. No current facility-administered medications for this visit. 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 Right tibial fracture Snoring PAST SURGICAL HISTORY Procedure Laterality Date BREAST BIOPSY 07/28/2015 COLONOSCOPY FLX DX W/COLLJ SPEC WHEN PFRMD 11/19/2013 Colonoscopy COLONOSCOPY FLX DX W/COLLJ SPEC WHEN PFRMD N/A 11/22/2016 COLONOSCOPY FLX DX W/COLLJ SPEC WHEN PFRMD 12/13/2019 Colonoscopy 5 year interval EXTRACTION, ERUPTED TOOTH OR EXPOSED ROOT (ELEVATION AND/OR FORCEPS REMOVAL) 1998 wisdom teeth INSERT INTRAUTERINE DEVICE 07/05/2015, 06/22/2020 LAPAROSCOPIC CHOLECYSTECTOMY 08/30/2022 MAST MODF RAD W/AX LYMPH NOD W/WO PECT/ABELARDO MIN Right 02/05/2016 SALPINGECTOMY COMPLETE/PARTIAL UNI/BI SPX 06/22/2020 bilateral salpingectomy, sterilization, IUD insertion FAMILY HISTORY Problem Relation Age of Onset Hypertension Mother 80 in '24 Colon Cancer Father passed in 1984 in his 50's other (precancerous breast lesion) Maternal Grandmother 80 Ovarian cancer Paternal Grandmother Other 2nd degree relative Cancer Paternal Grandfather kidney Breast Cancer Other 2nd degree relative Ovarian cancer Other Social History Tobacco Use Smoking status: Former Current packs/day: 0.00 Average packs/day: 0.3 packs/day for 11.4 years (2.8 ttl pk-yrs) Types: Cigarettes Start date: 1995 Quit date: 02/20/2007 Years since quittin.7 Passive exposure: Past Smokeless tobacco: Never Vaping Use Vaping status: Never Used Substance Use Topics Alcohol use: Yes Alcohol/week: 2.0 standard drinks of alcohol Types: 1 Glasses of wine, 1 Cans of beer per week Comment: occasional Drug use: No REVIEW OF SYMPTOMS: The review of systems data was entered by the nurse and reviewed by me SEE NURSING NOTE PHYSICAL EXAMINATION: General: The patient is 48 year old, female well nourished, well hydrated in no acute distress. The patient is oriented to time, place, and person. VITALS: Blood pressure 118/76, pulse 78, temperature 36.2 ?C (97.1 ?F), resp. rate 17, height 166.4 cm (5' 5.5), weight 103.2 kg (227 lb 9.6 oz), last menstrual period 07/05/2015, SpO2 100%. Body mass index is 37.3 kg/m?. HEENT: Normal cephalic, ataumatic, pupils are equally round, sclera are anicteric, mucous membranes are moist, oropharynx is clear. Neck has no masses, asymmetry or lymphadenopathy. Respiratory: Clear to auscultation and percussion. Normal respiratory excursion and pattern. Cardiac: Examination is regular rate and rhythm. Normal S1/S2 Abdominal exam: Soft, nontender, with no palpable masses. No hepatosplenomegaly. No palpable hernias (more content not included)... Normal [facility] CAMELIA SCREENING W TOMOon 11-08 CAMELIA SCREENING W CHANCE * * *Final Report* * * DATE OF EXAM: Nov 08 2024 1:28PM MARVIN 0582 - CAMELIA SCREENING W CHANCE / PROCEDURE REASON: Visit for screening mammogram * * * * Physician Interpretation * * * * [facility] [place] [id number] #[id number] - CAMELIA SCREENING W CHANCE HISTORY: Patient is 48 years old and is seen for screening and is asymptomatic in the left breast. The patient has a history of right breast cancer in 2015. COMPARISON STUDIES: The present examination has been compared to prior imaging studies dated 11/03/2020 (mammogram), 11/05/2021 (mammogram), 11/06/2022 (mammogram) and 11/07/2023 (mammogram). MAMMOGRAM TECHNIQUE: The study was acquired using full field digital technology and interpreted from soft copy. Digital Breast Tomosynthesis (DBT) images were obtained and used to assist in the interpretation of this examination. MAMMOGRAM FINDINGS: There are scattered areas of fibroglandular density. No suspicious masses, calcifications or other abnormalities are seen in the left breast. There are no significant interval changes. IMPRESSION: There is no mammographic evidence of malignancy in the left breast. Routine screening mammogram is recommended. Annual mammogram will be due in 1 year. BI-RADS Category 1: Negative Interpreting Radiologist: Maria D Mayfield M.D. Electronically signed on: 11/09/2024 [employer] Efficient Aircraft Designer: CONCHIS Transcribe Date/Time: Nov 08 2024 1:11P Dictated by : MARIA D MAYFIELD MD This examination was interpreted and the report reviewed and electronically signed by: MARIA D MAYFIELD MD on Nov 09 2024 6:59AM EST [id number] Normal [facility] PT D/C Summary (1)on 024 PT D/C Summary (1) [facility] [address] [place] [address] [address] [place] [address] / REHABILITATION SERVICES DISCHARGE SUMMARY MR#: [id number] Acct: [id number] Name: TAMEKA ALLAN Rep #: [id number] : 1975 48 From: Agusto Thurman PT, Cert. T, [facility] Referring Dr.: ROBERTO CARLOS Fountain Status: REG R Insurance: ANTH SELF PAY INSURANCE Discharge Summary D/C summary: It has been my pleasure to treat TAMEKA ALLAN referred by ROBERTO CARLOS Reilly, with the diagnosis of LEFT SHOULDER PAIN for a total of 7 visit(s). Discharge Date: 09/01/24 Please see the following information for a summary of their discharge status. Subjective Subjective: Doing good ,although has some lateral deltoid Pain Left Shoulder: Pain Intensity (Out of 10): 0 Overall Improvement % Improvement: 60 Objective Objective/Function: POSTURE: rounded shoulders head forward PALAPTION: unremarkable NEURO: denies paresthesia/tingling AROM: shoulder flexion 155 degrees ,abduction 160 degrees ,ER 90 degrees ,IR T10 MMT: ( peak force) infraspinatus 21.8,suprapinatus 26.2,deltoid 31.4 Goals Goal 1:: I with HEP for shoulder Goal Progress: Goal Met Goal 2:: Patient to improve AROM shoulder flexion/abduction 160 degrees to improve ADLS Goal Progress: Goal Met Goal 3:: Patient to improve peak force RTC and deltoid by 5-10# to improve function/ADLS Goal Progress: Goal Met Goal 4:: Patient to demonstrate 70% improvement with less pain and improved function with ADL's Goal Progress: Goal Met Goal 5:: Patient to improve quick dash by 5 points to improve QOL and function Goal Progress: Goal Met Plan Plan: D/C D/C Information Discharge Comments: HEP d/c sentence: If there are questions or concerns regarding this patient's physical therapy, please feel free to call me at [phone]. Thank you for the referral of this patient. Sincerely, Agusto Thurman PT, Craig BAIT, OCS Balance/Gait/Functiona l tests Balance/Special Test Scores Quick DASH Score: 4.5450 Improvement % Improvement: 60 09/07/24 1039 CC: ROBERTO CARLOS Fountain JLA Signed Normal [facility] Inital Evaluation (1) - PTon 07-30-2024 Inital Evaluation (1) - PT [facility] [address] [place] [address] [address] [place] [address] / REHABILITATION SERVICES INITIAL EVALUATION MR#: [id number] Acct: [id number] Name: TAMEKA ALLAN Rep #: [id number] : 1975 48 From: Craig Braxton PT. MD [place], OCS Referring Dr.: ROBERTO CARLOS Reilly Status: REG RCR Insurance: ANTHEM SELF PAY INSURANCE Patient's Visit Information Visit Information Visit Information: TAMEKA ALLAN is a 48 year old F referred to Physical Therapy by ROBERTO CARLOS Reilly with a diagnosis of LEFT SHOULDER PAIN. Date of Evaluation: 07/30/24 Physical Therapist: Agusto Thurman PT, Craig BAIT, OCS Visit Plan Frequency: 2x /Week Duration: 4 Weeks Plan: PT INTERVENTIONS RTC/SCAPULAR STRENGTHENING ,POSTURAL EX'S ,ROM AND MODALTIES PRN Subjective Subjective: This 48 y/o female presents to physical therapy for left shoulder pain. Patient has had intermittent left lateral shoulder pain for [address] clarisse PT. No imaging .Patient pain is intermittent OH and eccentric lowering affects ADL 's and housework tasks.Patient pain occasionally sleeping. Patient denies paresthesia/tingling. Pain described as dull ache. Patient has not tried to work out.Patient condition affects QOL and function/housework tasks. Patient goals to decrease pain. SOCIAL: single VOCATION:[employer] Pain Left Shoulder: Pain Intensity (Out of 10): 2 Pain Intensity Range: 10 Objective Objective: POSTURE: rounded shoulders head forward PALAPTION: unremarkable NEURO: denies paresthesia/tingling AROM: shoulder flexion 140 degrees ,abduction 150 degrees ,ER 90 degrees ,IR T10 MMT: ( peak force) infraspinatus 9.2,suprapinatus 10.2,deltoid 14.5 Special Tests L Shoulder External Rotation Lag Test - RC Tear: Negative L Shoulder Lift Off Test - Subscapular Tear: Negative L Shoulder Drop Sign - IS Test: Negative L Shoulder Empty Can - SS: Positive L Shoulder Belly Press - SupScap: Negative L Shoulder Neer - Impingement: Positive L Shoulder Albert Yrn - Impingement: Positive L Shoulder Speeds Test - Labrum/Biceps: Negative Balance/Special Test Scores Quick DASH Score: 27.2725 Goals Goal 1:: I with HEP for shoulder Goal Time Frame: 4-6 Weeks Goal 2:: Patient to improve AROM shoulder flexion/abduction 160 degrees to improve ADLS Goal Time Frame: 4-6 Weeks Goal 3:: Patient to improve peak force RTC and deltoid by 5-10# to improve function/ADLS Goal Time Frame: 4-6 Weeks Goal 4:: Patient to demonstrate 70% improvement with less pain and improved function with ADL's Goal Time Frame: 4-6 Weeks Goal 5:: Patient to improve quick dash by 5 points to improve QOL and function Goal Time Frame: 4-6 Weeks Rehabilitation Potential Physical Therapy Diagnosis: This patient has weakness RTC with pain with tendinopathy with decrease ROM ,weakness impairs ADL and housework tasks above 90 degrees thus benefit from skilled PT Rehabilitation Potential: Good Anticipated Interventions Patient/Client Instruction: Educate patient on: Condition and Plan of Care For the Purpose of:: To decrease pain, To increase ROM, To improve muscle performance and motor function, To improve ability to perform ADL's, To increase tolerance to activity/condition/pos ition, To improve ability of physical actions for home/community/work/le isure, To improve health of tissue, To decrease soft tissue restriction, To increase flexibility/ROM, To improve balance, To reduce risk of recurrence and To prevent re-injury Therapeutic Exercise to Include: Strength training, Postural training, Flexibilty training, Active ROM and Scapular Strength/Stabilization Comment: RTC For the Purpose of:: To decrease pain, To increase ROM, To improve muscle performance and motor function, To improve ability to perform ADL's, To improve ability of physical actions for home/ community/work/leisure , To improve health of tissue, To decrease soft tissue restriction, To increase flexibility/ROM and To reduce risk of recurrence TENS: Yes IF ES: Yes Cryotherapy (ice pack, ice massage): Yes Thermo therapy (hot pack): Yes Ultrasound (thermal/non thermal): Yes For the Purpose of:: To decrease pain, To increase ROM, To improve nutrient delivery to tissue, To increase oxygenation perfusion, To improve health of tissue and To decrease soft tissue restriction Text: Thank you for the opportunity to evaluate your patient. For Medicare and Medicare HMO plans, please review the plan of care and approve it. It will need to be FAXED BACK to us at [phone] for Medicare purposes. For Medicare only, by signing this I certify the plan of care. Please let me know if there are questions or concerns regarding this plan of care. Physician Signature: Date:__ (more content not included)... [facility] .Auto Diffon 07-27-2024 Basophil, Absolute 0.0 10 3/mcL Normal 0.0-0.2 [facility] Comment on above: Performed By: #### L IPID, CBC, CMP, ADIFF, ANEU, A1C, TSH, GFR #### [place] [address] [place], [place] [address] Basophils/100 WBC (Bld) 0.5 % Normal 0.0-2.5 [facility] Comment on above: Performed By: #### L IPID, CBC, CMP, ADIFF, ANEU, A1C, TSH, GFR #### [address] [address] Eosinophil, Absolute 0.2 10 3/mcL Normal 0.0-0.7 [facility] Comment on above: Performed By: #### L IPID, CBC, CMP, ADIFF, ANEU, A1C, TSH, GFR #### [address] [address] Eosinophils/100 WBC (Bld) 1.9 % Normal 0.0-7.0 [facility] Comment on above: Performed By: #### L IPID, CBC, CMP, ADIFF, ANEU, A1C, TSH, GFR #### [address] [address] Lymphocyte, Absolute 2.2 10 3/mcL Normal 0.9-4.3 [facility] Comment on above: Performed By: #### L IPID, CBC, CMP, ADIFF, ANEU, A1C, TSH, GFR #### [address] [address] Lymphocytes/100 WBC (Bld) 23.0 % Normal 20.0-40.0 [facility] Comment on above: Performed By: #### L IPID, CBC, CMP, ADIFF, ANEU, A1C, TSH, GFR #### [address] [address] Monocyte, Absolute 0.7 10 3/mcL Normal 0.1-1.4 [facility] Comment on above: Performed By: #### L IPID, CBC, CMP, ADIFF, ANEU, A1C, TSH, GFR #### [address] [address] Monocytes/100 WBC (Bld) 7.8 % Normal 2.0-13.0 [facility] Comment on above: Performed By: #### L IPID, CBC, CMP, ADIFF, ANEU, A1C, TSH, GFR #### [address] [address] Neutrophils/100 WBC (Bld) 66.8 % Normal 50.0-75.0 [facility] Comment on above: Performed By: #### L IPID, CBC, CMP, ADIFF, ANEU, A1C, TSH, GFR #### [address] [address] .GFRon 07-27-2024 GFR 72 ml/min/1.73sqm Normal [facility] Comment on above: Result Comment: GFR Population mean for , Non- Americans Ages 20-29 = 116 mL/min/1.73 sq.m. Ages 30-39 = 107 mL/min/1.73 sq.m. Ages 40-49 = 99 mL/min/1.73 sq.m. Ages 50-59 = 93 mL/min/1.73 sq.m. Ages 60-69 = 85 mL/min/1.73 sq.m. Ages 70+ = 75 mL/min/1.73 sq.m. Chronic Kidney Disease: Less than 60 mL/min/1.73 square meters End Stage Renal Disease: Less than 15 mL/min/1.73 square meters Performed By: #### L IPID, CBC, CMP, ADIFF, ANEU, A1C, TSH, GFR #### [address] [address] GFR Non- 60 ml/min/1.73sqm Normal [facility] Comment on above: Result Comment: GFR Population mean for , Non- Americans Ages 20-29 = 116 mL/min/1.73 sq.m. Ages 30-39 = 107 mL/min/1.73 sq.m. Ages 40-49 = 99 mL/min/1.73 sq.m. Ages 50-59 = 93 mL/min/1.73 sq.m. Ages 60-69 = 85 mL/min/1.73 sq.m. Ages 70+ = 75 mL/min/1.73 sq.m. Chronic Kidney Disease: Less than 60 mL/min/1.73 square meters End Stage Renal Disease: Less than 15 mL/min/1.73 square meters Performed By: #### L IPID, CBC, CMP, ADIFF, ANEU, A1C, TSH, GFR #### [address] [address] .NEUABSon 07-27-2024 Neutrophil, Absolute 6.3 10 3/mcL Normal 2.3-8.1 [facility] Comment on above: Performed By: #### L IPID, CBC, CMP, ADIFF, ANEU, A1C, TSH, GFR #### [place] [id number] A1Con 07-27-2024 Glucose [Mass/Vol] 94 mg/dL Normal [facility] Comment on above: Result Comment: Samia mated Average Glucose calculated by equation ((28.7xA1C)-46.7) Estimated average glucose (eAG) is a calculated value from Hemoglobin A1C and is representative phlebotomy services of the average blood glucose level in the last 2-3 month period. Normal range: less than 114 mg/dL Performed By: #### L IPID, CBC, CMP, ADIFF, ANEU, A1C, TSH, GFR #### [place] [address] HbA1c (Bld) [Mass fraction] 4.9 % Normal 4.3-6.4 [facility] Comment on above: Performed By: #### L IPID, CBC, CMP, ADIFF, ANEU, A1C, TSH, GFR #### [place] [id number] CBCon 07-27-2024 Erythrocyte distribution width (RBC) [Ratio] 13.0 % Normal 11.5-15.5 [facility] Comment on above: Performed By: #### L IPID, CBC, CMP, ADIFF, ANEU, A1C, TSH, GFR #### [place] [address] Hematocrit (Bld) [Volume fraction] 43.0 % Normal 34.0-46.0 [facility] Comment on above: Performed By: #### L IPID, CBC, CMP, ADIFF, ANEU, A1C, TSH, GFR #### [place] [address] Hgb 14.6 G/dL Normal 12.0-16.0 [facility] Comment on above: Performed By: #### L IPID, CBC, CMP, ADIFF, ANEU, A1C, TSH, GFR #### [address] [address] MCH (RBC) [Entitic mass] 31.8 pg Normal 27.0-33.0 [facility] Comment on above: Performed By: #### L IPID, CBC, CMP, ADIFF, ANEU, A1C, TSH, GFR #### [address] [address] MCHC 34.1 G/dL Normal 32.0-36.0 [facility] Comment on above: Performed By: #### L IPID, CBC, CMP, ADIFF, ANEU, A1C, TSH, GFR #### [address] [address] MCV (RBC) [Entitic vol] 93.4 fL Normal 80.0-99.0 [facility] Comment on above: Performed By: #### L IPID, CBC, CMP, ADIFF, ANEU, A1C, TSH, GFR #### [address] [address] Platelet 252 10 3/mcL Normal 150-450 [facility] Comment on above: Performed By: #### L IPID, CBC, CMP, ADIFF, ANEU, A1C, TSH, GFR #### [address] [address] Platelet mean volume (Bld) [Entitic vol] 8.8 fL Normal 6.6-10.5 [facility] Comment on above: Performed By: #### L IPID, CBC, CMP, ADIFF, ANEU, A1C, TSH, GFR #### [address] [address] RBC 4.60 10 6/mcL Normal 4.10-5.30 [facility] Comment on above: Performed By: #### L IPID, CBC, CMP, ADIFF, ANEU, A1C, TSH, GFR #### [address] [address] WBC 9.4 10 3/mcL Normal 4.5-10.8 [facility] Comment on above: Performed By: #### L IPID, CBC, CMP, ADIFF, ANEU, A1C, TSH, GFR #### [address] [address] CMPon 07-27-2024 Albumin Level 3.8 G/dL Normal 3.5-5.0 [facility] Comment on above: Performed By: #### L IPID, CBC, CMP, ADIFF, ANEU, A1C, TSH, GFR #### [address] [address] Albumin/Globulin [Mass ratio] 1.2 {ratio} Normal 1.1-2.5 [facility] Comment on above: Performed By: #### L IPID, CBC, CMP, ADIFF, ANEU, A1C, TSH, GFR #### [address] [address] ALP [Catalytic activity/Vol] 54 U/L Normal 40-135 [facility] Comment on above: Performed By: #### L IPID, CBC, CMP, ADIFF, ANEU, A1C, TSH, GFR #### [address] [address] ALT [Catalytic activity/Vol] 36 U/L Normal 14-59 [facility] Comment on above: Performed By: #### L IPID, CBC, CMP, ADIFF, ANEU, A1C, TSH, GFR #### [address] [address] AST [Catalytic activity/Vol] 10 U/L Normal 10-40 [facility] Comment on above: Performed By: #### L IPID, CBC, CMP, ADIFF, ANEU, A1C, TSH, GFR #### [address] [address] Bili Total 0.7 mg/dL Normal 0.2-1.0 [facility] Comment on above: Result Comment: Use of this assay is not recommended for patients undergoing treatment with eltrombopag due to the potential for falsely elevated results. Performed By: #### L IPID, CBC, CMP, ADIFF, ANEU, A1C, TSH, GFR #### [address] [address] BUN/Creatinine Ratio 12 ratio Normal 7-27 [facility] Comment on above: Performed By: #### L IPID, CBC, CMP, ADIFF, ANEU, A1C, TSH, GFR #### [address] [address] Calcium [Mass/Vol] 9.1 mg/dL Normal 8.4-10.2 [facility] Comment on above: Performed By: #### L IPID, CBC, CMP, ADIFF, ANEU, A1C, TSH, GFR #### [address] [address] Chloride [Moles/Vol] 103 mmol/L Normal 98-107 [facility] Comment on above: Performed By: #### L IPID, CBC, CMP, ADIFF, ANEU, A1C, TSH, GFR #### [address] [address] CO2 [Moles/Vol] 29 mmol/L Normal 22-29 [facility] Comment on above: Performed By: #### L IPID, CBC, CMP, ADIFF, ANEU, A1C, TSH, GFR #### [address] [address] Creatinine [Mass/Vol] 1.00 mg/dL Normal 0.55-1.[address] [facility] Comment on above: Result Comment: Test ing performed on Siemens Dimension EXL analyzer using a modified kinetic Geovani technique. Performed By: #### L IPID, CBC, CMP, ADIFF, ANEU, A1C, TSH, GFR #### [address] [address] Electrolyte Balance 4.0 mEq/L Normal 4.0-15.0 [facility] Comment on above: Performed By: #### L IPID, CBC, CMP, ADIFF, ANEU, A1C, TSH, GFR #### [address] [address] Globulin 3.3 G/dL Normal [facility] Comment on above: Performed By: #### L IPID, CBC, CMP, ADIFF, ANEU, A1C, TSH, GFR #### [address] [address] Glucose [Mass/Vol] 89 mg/dL Normal 70-105 [facility] Comment on above: Performed By: #### L IPID, CBC, CMP, ADIFF, ANEU, A1C, TSH, GFR #### [address] [address] Potassium [Moles/Vol] 4.2 mmol/L Normal 3.5-5.[address] [facility] Comment on above: Performed By: #### L IPID, CBC, CMP, ADIFF, ANEU, A1C, TSH, GFR #### [address] [address] Sodium [Moles/Vol] 136 mmol/L Normal 136-145 [facility] Comment on above: Performed By: #### L IPID, CBC, CMP, ADIFF, ANEU, A1C, TSH, GFR #### [address] [address] Total Protein 7.1 G/dL Normal 6.4-8.2 [facility] Comment on above: Performed By: #### L IPID, CBC, CMP, ADIFF, ANEU, A1C, TSH, GFR #### [address] [address] Urea nitrogen [Mass/Vol] 12 mg/dL Normal 7-18 [facility] Comment on above: Performed By: #### L IPID, CBC, CMP, ADIFF, ANEU, A1C, TSH, GFR #### [address] [address] LABORATORYOrdered By: SYSTEM SYSTEM on 07-27-2024 Albumin BCP dye [Mass/Vol] 3.8 G/dL Normal 3.5 - 5.0 G/dL AO ADM SS Albumin/Globulin [Mass ratio] 1.2 {ratio} Normal 1.1 - 2.5 ratio AO ADM SS ALP [Catalytic activity/Vol] 54 U/L Normal 40 - 135 U/L AO ADM SS ALT With P-5'-P [Catalytic activity/Vol] 36 U/L Normal 14 - 59 U/L AO ADM SS AST With P-5'-P [Catalytic activity/Vol] 10 U/L Normal 10 - 40 U/L AO ADM SS Basophils (Bld) [#/Vol] 0.0 103/mcL Normal 0.0 - 0.2 10^3/mcL AO Workflow SS Basophils/100 WBC (Bld) 0.5 % Normal 0.0 - 2.5 % AO Workflow SS Bilirubin [Mass/Vol] 0.7 mg/dL Normal 0.2 - 1 .0 mg/dL AO ADM SS Comment on above: Interpretive Data: U se of this assay is not recommended for patients undergoing treatment with eltrombopag due to the potential for falsely elevated results. Calcium [Mass/Vol] 9.1 mg/dL Normal 8.4 - 10. 2 mg/dL AO ADM SS Chloride [Moles/Vol] 103 mmol/L Normal 98 - 10 7 mmol/L AO ADM SS CO2 [Moles/Vol] 29 mmol/L Normal 22 - 29 mmol/L AO ADM SS Creatinine [Mass/Vol] 1.00 mg/dL Normal 0.55 - 1.02 mg/dL AO ADM SS Comment on above: Interpretive Data: T esting performed on Siemens Dimension EXL analyzer using a modified kinetic Geovani technique. Electrolyte Balance 4.0 mEq/L Normal 4.0 - 15 .0 mEq/L AO ADM SS Eosinophil, Absolute 0.2 103/mcL Normal 0.0 - 0 .7 10^3/mcL AO Workflow SS Eosinophils/100 WBC (Bld) 1.9 % Normal 0.0 - 7.0 % AO Workflow SS Erythrocyte distribution width (RBC) [Ratio] 13.0 % Normal 11.5 - 15.5 % AO Workflow SS GFR/1.73 sq M.predicted among blacks MDRD (S/P/Bld) [Vol rate/Area] 72 ml/min/1.73sqm Invalid Interpretation Code AO Chemistry S Comment on above: Interpretive Data: GFR Population mean for , Non- Americans Ages 20-29 = 116 mL/min/1.73 sq.m. Ages 30-39 = 107 mL/min/1.73 sq.m. Ages 40-49 = 99 mL/min/1.73 sq.m. Ages 50-59 = 93 mL/min/1.73 sq.m. Ages 60-69 = 85 mL/min/1.73 sq.m. Ages 70+ = 75 mL/min/1.73 sq.m. Chronic Kidney Disease: Less than 60 mL/min/1.73 square meters End Stage Renal Disease: Less than 15 mL/min/1.73 square meters GFR/1.73 sq M.predicted among non-blacks MDRD (S/P/Bld) [Vol rate/Area] 60 ml/min/1.73sqm Invalid Interpretation Code AO Chemistry S Comment on above: Interpretive Data: GFR Population mean for , Non- Americans Ages 20-29 = 116 mL/min/1.73 sq.m. Ages 30-39 = 107 mL/min/1.73 sq.m. Ages 40-49 = 99 mL/min/1.73 sq.m. Ages 50-59 = 93 mL/min/1.73 sq.m. Ages 60-69 = 85 mL/min/1.73 sq.m. Ages 70+ = 75 mL/min/1.73 sq.m. Chronic Kidney Disease: Less than 60 mL/min/1.73 square meters End Stage Renal Disease: Less than 15 mL/min/1.73 square meters Globulin 3.3 G/dL Invalid Interpretation Code AO ADM SS Glucose [Mass/Vol] 89 mg/dL Normal 70 - 105 mg/dL AO ADM SS Glucose [Mass/Vol] 94 mg/dL Invalid Interpretation Code AO Chemistry S Comment on above: Interpretive Data: E stimated average glucose (eAG) is a calculated value from Hemoglobin A1C and is representative phlebotomy services of the average blood glucose level in the last 2-3 month period. Normal range: less than 114 mg/dL HbA1c (Bld) [Mass fraction] 4.9 % Normal 4.3 - 6.4 % AO ADM SS Hematocrit (Bld) [Volume fraction] 43.0 % Normal 34.0 - 46.0 % AO Workflow SS Hemoglobin (Bld) [Mass/Vol] 14.6 G/dL Normal 12.0 - 16.0 G/dL AO Workflow SS Lymphocytes (Bld) [#/Vol] 2.2 103/mcL Normal 0.9 - 4.3 10^3/mcL AO Workflow SS Lymphocytes/100 WBC (Bld) 23.0 % Normal 20.0 - 40.0 % AO Workflow SS MCH (RBC) [Entitic mass] 31.8 pg Normal 27.0 - 33.0 pg AO Workflow SS MCHC 34.1 G/dL Normal 32.0 - 36.0 G/dL AO Workflow SS MCV (RBC) [Entitic vol] 93.4 fL Normal 80.0 - 99.0 fL AO Workflow SS Monocytes (Bld) [#/Vol] 0.7 103/mcL Normal 0.1 - 1.4 10^3/mcL AO Workflow SS Monocytes/100 WBC (Bld) 7.8 % Normal 2.0 - 13.0 % AO Workflow SS Neutrophils (Bld) [#/Vol] 6.3 103/mcL Normal 2.3 - 8.1 10^3/mcL AO Workflow SS Neutrophils/100 WBC (Bld) 66.8 % Normal 50.0 - 75.0 % AO Workflow SS Platelet mean volume (Bld) [Entitic vol] 8.8 fL Normal 6.6 - 10.5 fL AO Workflow SS Platelets (Bld) [#/Vol] 252 103/mcL Normal 150 - 450 10^3/mcL AO Workflow SS Potassium [Moles/Vol] 4.2 mmol/L Normal 3.5 - 5.1 mmol/L AO ADM SS Protein [Mass/Vol] 7.1 G/dL Normal 6.4 - 8.2 G/dL AO ADM SS RBC (Bld) [#/Vol] 4.60 106/mcL Normal 4.10 - 5.3 0 10^6/mcL AO Workflow SS Sodium [Moles/Vol] 136 mmol/L Normal 136 - 145 mmol/L AO ADM SS TSH Qn 2.32 m[IU]/L Normal 0.36 - 3.74 mcIU/mL AO ADM SS Urea nitrogen [Mass/Vol] 12 mg/dL Normal 7 - 18 mg/dL AO ADM SS Urea nitrogen/Creatinine [Mass ratio] 12 ratio Normal 7 - 27 ratio AO ADM SS WBC (Bld) [#/Vol] 9.4 103/mcL Normal 4.5 - 10.8 10^3/mcL AO Workflow SS LABORATORYOrdered By: Yuval Engel on 07-27-2024 Cholesterol [Mass/Vol] 201 mg/dL High 0 - 200 mg/dL AO ADM SS Comment on above: Interpretive Data: C holesterol Reference Interval: Less than 200 Desirable 200-239 Borderline high risk 240 and above High risk Cholesterol in HDL [Mass/Vol] 47 mg/dL Normal 40 - 60 mg/dL AO ADM SS Cholesterol in LDL [Mass/Vol] 120 mg/dL Normal 0 - 130 mg/dL AO ADM SS Triglyceride [Mass/Vol] 172 mg/dL High 0 - 150 mg/dL AO ADM SS Comment on above: Interpretive Data: T riglyceride Reference Interval: Less than 150 Normal 150-199 Borderline high risk 200-499 High risk 500 or higher Very high risk LIPIDon 07-27-2024 Cholesterol [Mass/Vol] 201 mg/dL High 0-200 [facility] Comment on above: Result Comment: Chol esterol Reference Interval: Less than 200 Desirable 200-239 Borderline high risk 240 and above High risk Performed By: #### L IPID, CBC, CMP, ADIFF, ANEU, A1C, TSH, GFR #### [address] [address] Cholesterol in HDL [Mass/Vol] 47 mg/dL Normal 40-60 [facility] Comment on above: Performed By: #### L IPID, CBC, CMP, ADIFF, ANEU, A1C, TSH, GFR #### [address] [address] Cholesterol in LDL [Mass/Vol] 120 mg/dL Normal 0-130 [facility] Comment on above: Performed By: #### L IPID, CBC, CMP, ADIFF, ANEU, A1C, TSH, GFR #### [address] [address] Triglyceride [Mass/Vol] 172 mg/dL High 0-150 [facility] Comment on above: Result Comment: Trig lyceride Reference Interval: Less than 150 Normal 150-199 Borderline high risk 200-499 High risk 500 or higher Very high risk Performed By: #### L IPID, CBC, CMP, ADIFF, ANEU, A1C, TSH, GFR #### [address] [address] TSHon 07-27-2024 TSH Qn 2.32 m[IU]/L Normal 0.36-3.74 [facility] Comment on above: Performed By: #### L IPID, CBC, CMP, ADIFF, ANEU, A1C, TSH, GFR #### [address] [address] CNOVon 04-23-2024 CNOV Office Visit (PUHWCB ) JERRELLTAMEKA CARTER ([id number]) 1975 F Date Time Provider Department 04/23/24 2:15 PM BILLIE LOZOYA [facility] During your visit today, we recorded the following information about you: Temperature Pulse Respiration Blood pressure 96.8 degrees 79/minute 20/minute 121/66 Weight Height 104.9 kg 1.664 m Billie Lozoya MD 04/23/2024 2:57 PM Signed Pulmonary Consult Patient Name: Tameka Allan Overview Notes of Problems Addressed This Visit Pulmonary HALIMA (obstructive sleep apnea) - Primary S/N [id number] In [facility] ASSESSMENT: H/o HALIMA Treated with CPAP with good response, perfect compliance, very mild leak Using FFM AND Taping mouth Obesity - now in medical bariatric program has lost weight - 30 lbs PLAN: APAP as written Follow with bariatric program Consider improve sleep hygiene Return to Office: 12 months PRIMARY CARE PHYSICIAN: Zainab Fountain (Stagecraft Professor) Patient Ms. Allan states Zainab Fountain (Dylan) requests consultation regarding possible HALIMA. My final recommendations will be communicated to the requesting health care provider by way of the shared medical record for internal providers or letter via the [employer] for external providers. CHIEF COMPLAINT: possible HALIMA HPI: This is a 47 year old person who presents with possible HALIMA Never smoked regularly INITIAL VISIT WITH ME 05/30/2023 Sleep history: History of snoring HSAT last year - 2021 - HALIMA Given CPAP - tried it for 1-2 weeks and then returned it. Overall sleep: Poor overall Re: sleep To bed: 10-11 SL: 1 hour --Activities while trying to sleep: watching tv - often going to sleep with tv on Wakes for day: 6 am Weekend sleep schedule: sleeps in until 7-8 am NA: 1 x due to nocturia SL after reawakin-30 min --Activities while trying to sleep: tossing and turning - dark quiet room Typical hours of sleep: 6 hours A Good nights sleep: 6-7 hours Sleep is unrefreshing RLS Symptoms: none Preferred sleep position: side and back Naps: none Caffeinated Beverages: 1 cup coffee in am. Morning Headaches: none Dry mouth/Sore throat: often Loud witnessed snoring; No subjective snoring No witnessed apneas; No subjective apneas Sleep medications: none Family hx: none Prior Studies: documented sleep apnea as above Sleep Paralysis: No Hypnogogic hallucinations: No Cataplexy: No Weight 261 max - now down 30 lbs [place] Sleepiness Scale: Total: 5 09/29/2023 Pt has now considered and wishes to try to CPAP again - understanding that she needs to be qualified again RE: Sleep to bed 10 p; SL 1 h; Wakes 6-7 NA 1x nocturia Sleep is variably refreshing Drinks 1 coffee in am. Mild daytime sleepiness 12/09/23 HSAT Time MONSERRAT/AHI Supine 169.5 min 20.9 Off-Supine 241.5 min 24.1 Total 411.0 min 22.8 TODAY 04/23/2024 02/19/2024 received CPAP Using every night since Feels a benefit - after two weeks - sleeping better through the night To bed 10p; SL 30 min - will watch TV; Wakes 630 NA 1+ nocturia; SL short Sleep is refreshing After using cpap x 1 week - Less Foggy during the day Weight is stable - no drastic changes - mild continued exercise [Compliance reviewed in detail - report below] REVIEW OF SYSTEMS: GENERAL: No fevers, chills or sweats HEENT: Negative for frequent or significant headaches, No changes in hearing or vision, no nose bleeds or other nasal problems, No dysphagia RESPIRATORY: Negative for cough, sputum production or hemoptysis, No wheezing or dyspnea CARDIOVASCULAR: Negative for chest pain, palpitations, Negative for lower extremity edema GI: No abdominal pain, nausea or vomiting, No diarrhea or constipation, No hematochezia or hematemesis : No dysuria, polyuria, hematuria or nocturia NEURO: No history of headaches, syncope, paralysis, seizures or tremors A complete ROS was performed and all other systems are negative No question data found. PAST MEDICAL HISTORY: PAST MEDICAL HISTORY Diagnosis Date Atypical mole Benign colon polyp BRCA negative 2014 1 AND 2 Diabetes mellitus (HCC) Diabetes mellitus (HCC) Inflammatory breast cancer right breast, stage 3C- in lymphnodes- triple negative Right tibial fracture Snoring PAST SURGICAL HISTORY: PAST SURGICAL HISTORY Procedure Laterality Date BREAST BIOPSY 07/28/2015 COLONOSCOPY FLX DX W/COLLJ SPEC WHEN PFRMD 11/19/2013 Colonoscopy COLONOSCOPY FLX DX W/COLLJ SPEC WHEN PFRMD N/A 11/22/2016 COLONOSCOPY FLX DX W/COLLJ SPEC WHEN PFRMD 12/13/2019 Colonoscopy 5 year interval EXTRACTION, ERUPTED TOOTH OR EXPOSED ROOT (ELEVATION AND/OR FORCEPS REMOVAL) 1998 wisdom teeth INSERT INTRAUTERINE DEVICE 07/05/2015, 06/22/2020 LAPAROSCOPIC CHOLECYSTECTOMY 08/30/2022 MAST MODF RAD W/AX LYMPH NOD W/WO PECT/ABELARDO MIN Right 02/05/2016 SALPINGE (more content not included)... Normal [facility] 04-23-2024 [facility] TAMEKA ALLAN ([id number]) 1975 F Date Time Provider Department 04/23/24 BILLIE LOZOYA [facility] During your visit today, we recorded the following information about you: Brittney Bonilla 04/23/2024 3:06 PM Signed Message Received: Today Billie Lozoya MD [facility] Admin Pool Patient needs letter for 30-90 day confirmation letter for insurance. Brittney Bonilla 04/23/2024 3:06 PM Signed Today's OV faxed to [facility] directly from [facility] Brittney Bonilla Allergies As of Date: 04/23/2024 Noted Allergy Reaction SEASONAL ALLERGIES 05/23/2017 16 - Unknown Date Reviewed: 04/23/2024 Reviewed by: Rosa Juarez MA - Fully Assessed Reason for Visit: FYI-No Action Needed [265] Prescriptions as of 04/23/2024 - MOUNJARO 10 mg/0.5 mL pen injector Inject 10 mg subcutaneously one time a week. - metFORMIN ER (GLUCOPHAGE XR) 500 mg 24 hr tablet Take 1 tablet by mouth daily with breakfast. - CPAP/BIPAP/OTHER AutoPAP 5-20 cmH2O Mask per patient preference Lifetime supplies Dx: HALIMA - levonorgestrel (LILETTA) 20.1 mcg/24 hrs (6 yrs) 52 mg IUD 1 Each by INTRAUTERINE route as directed. put in at [facility] Problem List As Of Date 04/23/2024 Noted Resolved Inflammatory breast cancer, right (HCC) [C50.91*11/09/2015 Dietary counseling and surveillance [Z71.3] 11/22/2016 BMI 40.0-44.9, adult (HCC) [Z68.41] 09/10/2018 Family history of lung cancer [Z80.1] 08/29/2015 Family history of colon cancer [Z80.0] 08/29/2015 Family history of melanoma [Z80.8] 08/29/2015 Family history of ovarian cancer [Z80.41] 08/29/2015 History of right mastectomy [Z90.11] 11/05/2021 Calculus of gallbladder with cholecystitis [K80*08/28/2022 08/28/2022 RUQ pain [R10.11] 08/28/2022 08/28/2022 BRCA negative [Z13.71] 2014 HALIMA (obstructive sleep apnea) [G47.33] 05/30/2023 Diabetes mellitus (HCC) [E11.9] Class 3 severe obesity with serious comorbidity*11/17/2023 Encounter Status:Closed by BRITTNEY BONILLA on 04/23/24 [facility]20[facility] TAMEKA ALLAN ([id number]) 1975 F Date Time Provider Department 03/29/24 BILLIE LOZOYA [facility] During your visit today, we recorded the following information about you: Mague Otto 03/29/2024 2:13 PM Signed Order for PAP supplies signed and faxed back to [facility] [place]. Mague Otto Allergies As of Date: 03/29/2024 Noted Allergy Reaction SEASONAL ALLERGIES 05/23/2017 16 - Unknown Date Reviewed: 02/09/2024 Reviewed by: Lenore Morelos, SYDNEE.MANAGER BUSINESS [employer]ANNING - Fully Assessed Reason for Visit: FYI-No Action Needed [265] Prescriptions as of 03/29/2024 - MOUNJARO 10 mg/0.5 mL pen injector Inject 10 mg subcutaneously one time a week. - metFORMIN ER (GLUCOPHAGE XR) 500 mg 24 hr tablet Take 1 tablet by mouth daily with breakfast. - CPAP/BIPAP/OTHER AutoPAP 5-20 cmH2O Mask per patient preference Lifetime supplies Dx: HALIMA - levonorgestrel (LILETTA) 20.1 mcg/24 hrs (6 yrs) 52 mg IUD 1 Each by INTRAUTERINE route as directed. put in at [facility] Problem List As Of Date 03/29/2024 Noted Resolved Inflammatory breast cancer, right (HCC) [C50.91*11/09/2015 Dietary counseling and surveillance [Z71.3] 11/22/2016 BMI 40.0-44.9, adult (HCC) [Z68.41] 09/10/2018 Family history of lung cancer [Z80.1] 08/29/2015 Family history of colon cancer [Z80.0] 08/29/2015 Family history of melanoma [Z80.8] 08/29/2015 Family history of ovarian cancer [Z80.41] 08/29/2015 History of right mastectomy [Z90.11] 11/05/2021 Calculus of gallbladder with cholecystitis [K80*08/28/2022 08/28/2022 RUQ pain [R10.11] 08/28/2022 08/28/2022 BRCA negative [Z13.71] 2014 HALIMA (obstructive sleep apnea) [G47.33] 05/30/2023 Diabetes mellitus (HCC) [E11.9] Class 3 severe obesity with serious comorbidity*11/17/2023 Encounter Status:Closed by MAGUE OTTO on 03/29/24 [facility] Office Visit Reporton 2022 Office Visit Report [facility] [address] [place] [address] OFFICE VISIT Date of Service: 09/28/23 MR#: [id number] Acct: [id number] Patient: TAMEKA ALLAN Rep #: [id number] : 1975 Provider: MONIAC Antonio Age/Sex: 47/F Location: [facility] Status: Signed Intake Vital Signs 06/22/20 06:16 09/28/23 10:22 Height 5 ft 6 in 5 ft 6 in Weight: 232 lb 2 oz BMI 37.4 BP 126/69 H Blood Pressure Location Lt brachial Position Sitting Respiration 16 Pulse 74 Pulse Source NIBP Temp 98.6 F Temp Source Temporal Pulse Oximetry (%) 97 Oxygen Delivery Method room air Intake Visit Reasons: Cough Chief Complaint: cough, congestion Char Puller Required: No Is patient in pain?: No Allergies No Known Allergies Allergy (Verified 09/28/23 10:23) Medications Bacillus coagulans 2 billion cell-vitamin D3 5 mcg chewable tablet 1 ea PO DAILY 06/13/20 [History Confirmed 09/28/23] apple cider vinegar 300 mg tablet 300 mg PO DAILY 06/13/20 [History Confirmed 09/28/23] calcium carbonate 500 mg-vitamin D3 2.5 mcg (100 unit) chewable tablet 1 ea PO DAILY 06/13/20 [History Confirmed 09/28/23] multivitamin with minerals 1 ea PO DAILY 06/13/20 [History Confirmed 09/28/23] ibuprofen 600 mg tablet 600 mg PO Q6H PRN Pain #60 tabs 06/22/20 [Rx Confirmed 09/28/23] azithromycin 250 mg tablet (Zithromax Z-Bartolo) See Rx Instructions PO .COMPLEX #6 tabs 09/28/23 [Rx Confirmed 09/28/23] metformin 500 mg tablet,extended release 24 hr mg PO 09/28/23 [History Confirmed 09/28/23] prednisone 10 mg tablet 10 mg PO .COMPLEX #30 tabs 09/28/23 [Rx Confirmed 09/28/23] Is last menstrual period known: No Post menopausal: No Patient : No Nurse's Note: cough, congestion x 5days . denies MELLO/BA/feever [facility] Medical History (Updated 09/28/23 @ 10:47 by Beena Welch PA, PA) Diabetes History of breast cancer Seasonal allergies Surgical History (Updated 09/28/23 @ 10:26 by Zoe Liz) History of cholecystectomy History of right mastectomy History of salpingectomy Family History (Updated 09/28/23 @ 10:26 by Zoe Liz) Other Cancer Hypertension Social History (Updated 09/28/23 @ 10:26 by Zoe Liz) Smoking Status: Former smoker alcohol intake: current substance use type: does not use HPI HPI Chief Complaint: cough, congestion Details: TAMEKA ALLAN, is a 47 F who presents to the office today for not feeling well for 5 days. Positive for: cough, chest congestion, sinus congestion, green sputum, chest soreness from coughing, MELLO, body aches Denies: sore throat, fever Has used mucinex OTC ROS Const Constitutional: Positive for other (ROS negative x 6 except what is described above) Exam Const General: cooperative, healthy appearing and no acute distress Nutritional Appearance: average body habitus Orientation: alert, awake and oriented x3 HENMT Head: normal to inspection and atraumatic Ears: hearing grossly normal bilaterally and TM's normal bilaterally Nose: external nose normal Face and sinus: normal facial exam Mouth: oral mucosae normal Throat: posterior oropharynx normal Eyes General: appearance normal, both eyes and all related structures Neck Lymphatic: no lymphadenopathy noted Resp Effort Inspection: normal respiratory effort Auscultation: Bilateral: Clear to Auscultation Cardio Palpation: normal PMI Rate: regular rate Rhythm: regular rhythm Heart Sounds: S1 normal, S2 normal, no gallops, no murmurs and no rubs GI Inspection: normal to inspection Auscultation: normal bowel sounds Palpation: soft, no hepatosplenomegaly and nontender Neuro General: patient alert, patient awake, patient oriented x3 and CN's II-XI intact bilaterally Coding Level of Care Code Off vis,est,level 3 Diagnoses Acute bronchitis J20.9 Assessment and Plan Assessment and Plan (1) Acute bronchitis: Status: Acute Plan: Advised patient to complete course of antibiotics given. Advised patient on the importance of hydration. Recommended the use of qfqk-bqu-[id number] support from Advil, Tylenol and eflm-pqu-fgftyoz cold medications to help alleviate symptoms. Did review maximum dosing on each of these medications to avoid accidental overdose of medications. Will also give steroid to help with cough Advised if not improving to see PCP. Orders: Orders POC [place] Kimberli FLUAB PCR Today Medications: New azithromycin (Zithromax Z-Bartolo) For 250 mg dose pack: take 500 mg today (day 1), then 250 mg for 4 days (days 2-5) PO 6 tabs 0RF prednisone Take 4 pills for 3 days, 3 pills for 3 days, 2 pills for 3 days, take 1 pill for 3 days 30 tabs 0RF 09/28/23 1049 A> Date Beena Harris (more content not included)... Normal [facility] .Auto Diffon 07-21-2023 Basophil, Absolute 0.1 10 3/mcL Normal 0.0-0.2 [facility], [facility] ([place]) Comment on above: Performed By: #### G FR, TSH, ADIFF, ANEU, CBC, LIPID, CMP #### [address] [address] Basophils/100 WBC (Bld) 0.7 % Normal 0.0-2.5 [facility] ([place]) Comment on above: Performed By: #### G FR, TSH, ADIFF, ANEU, CBC, LIPID, CMP #### [place] [id number] [place], [place] [address] Eosinophil, Absolute 0.2 10 3/mcL Normal 0.0-0.4 [facility] ([place]) Comment on above: Performed By: #### G FR, TSH, ADIFF, ANEU, CBC, LIPID, CMP #### [address] [address] Eosinophils/100 WBC (Bld) 2.2 % Normal 0.0-7.0 [facility] ([place]) Comment on above: Performed By: #### G FR, TSH, ADIFF, ANEU, CBC, LIPID, CMP #### [address] [address] Lymphocyte, Absolute 2.6 10 3/mcL Normal 0.8-3.9 [facility] ([place]) Comment on above: Performed By: #### G FR, TSH, ADIFF, ANEU, CBC, LIPID, CMP #### [address] [address] Lymphocytes/100 WBC (Bld) 28.0 % Normal 10.0-50.0 [facility] ([place]) Comment on above: Performed By: #### G FR, TSH, ADIFF, ANEU, CBC, LIPID, CMP #### [address] [address] Monocyte, Absolute 0.6 10 3/mcL Normal 0.2-1.0 [facility] ([place]) Comment on above: Performed By: #### G FR, TSH, ADIFF, ANEU, CBC, LIPID, CMP #### [address] [address] Monocytes/100 WBC (Bld) 6.5 % Normal 1.7-13.0 [facility] ([place]) Comment on above: Performed By: #### G FR, TSH, ADIFF, ANEU, CBC, LIPID, CMP #### [address] [address] Neutrophils/100 WBC (Bld) 62.6 % Normal 37.0-80.0 [facility] ([place]) Comment on above: Performed By: #### G FR, TSH, ADIFF, ANEU, CBC, LIPID, CMP #### [address] [address] .GFRon 07-21-2023 GFR 83 ml/min/1.73sqm Normal [facility] ([place]) Comment on above: Result Comment: GFR Population mean for , Non- Americans Ages 20-29 = 116 mL/min/1.73 sq.m. Ages 30-39 = 107 mL/min/1.73 sq.m. Ages 40-49 = 99 mL/min/1.73 sq.m. Ages 50-59 = 93 mL/min/1.73 sq.m. Ages 60-69 = 85 mL/min/1.73 sq.m. Ages 70+ = 75 mL/min/1.73 sq.m. Chronic Kidney Disease: Less than 60 mL/min/1.73 square meters End Stage Renal Disease: Less than 15 mL/min/1.73 square meters Performed By: #### G FR, TSH, ADIFF, ANEU, CBC, LIPID, CMP #### [address] [address] GFR Non- 69 ml/min/1.73sqm Normal [facility] ([place]) Comment on above: Result Comment: GFR Population mean for , Non- Americans Ages 20-29 = 116 mL/min/1.73 sq.m. Ages 30-39 = 107 mL/min/1.73 sq.m. Ages 40-49 = 99 mL/min/1.73 sq.m. Ages 50-59 = 93 mL/min/1.73 sq.m. Ages 60-69 = 85 mL/min/1.73 sq.m. Ages 70+ = 75 mL/min/1.73 sq.m. Chronic Kidney Disease: Less than 60 mL/min/1.73 square meters End Stage Renal Disease: Less than 15 mL/min/1.73 square meters Performed By: #### G FR, TSH, ADIFF, ANEU, CBC, LIPID, CMP #### [address] [address] .NEUABSon 07-21-2023 Neutrophil, Absolute 5.8 10 3/mcL Normal 2.9-6.2 [facility] ([place]) Comment on above: Performed By: #### G FR, TSH, ADIFF, ANEU, CBC, LIPID, CMP #### [address] [address] CBCon 07-21-2023 Erythrocyte distribution width (RBC) [Ratio] 13.0 % Normal 11.5-14.5 [facility] ([place]) Comment on above: Performed By: #### G FR, TSH, ADIFF, ANEU, CBC, LIPID, CMP #### [place] [id number] Hematocrit (Bld) [Volume fraction] 43.6 % Normal 37.0-47.0 [facility] ([place]) Comment on above: Performed By: #### G FR, TSH, ADIFF, ANEU, CBC, LIPID, CMP #### [place] [id number] Hgb 14.7 G/dL Normal 12.0-16.0 [facility] ([place]) Comment on above: Performed By: #### G FR, TSH, ADIFF, ANEU, CBC, LIPID, CMP #### [address] [address] MCH (RBC) [Entitic mass] 31.0 pg Normal 27.0-31.2 [facility] ([place]) Comment on above: Performed By: #### G FR, TSH, ADIFF, ANEU, CBC, LIPID, CMP #### [address] [address] MCHC 33.7 G/dL Normal 33.0-37.0 [facility] ([place]) Comment on above: Performed By: #### G FR, TSH, ADIFF, ANEU, CBC, LIPID, CMP #### [address] [address] MCV (RBC) [Entitic vol] 92.0 fL Normal 80.0-94.0 [facility] ([place]) Comment on above: Performed By: #### G FR, TSH, ADIFF, ANEU, CBC, LIPID, CMP #### [place] [address] Platelet 269 10 3/mcL Normal 130-400 [facility] ([place]) Comment on above: Performed By: #### G FR, TSH, ADIFF, ANEU, CBC, LIPID, CMP #### [address] [address] Platelet mean volume (Bld) [Entitic vol] 8.4 fL Normal 7.4-10.4 [facility] ([place]) Comment on above: Performed By: #### G FR, TSH, ADIFF, ANEU, CBC, LIPID, CMP #### [address] [address] RBC 4.74 10 6/mcL Normal 4.20-5.40 [facility] ([place]) Comment on above: Performed By: #### G FR, TSH, ADIFF, ANEU, CBC, LIPID, CMP #### [address] [address] WBC 9.3 10 3/mcL Normal 4.6-10.8 [facility] ([place]) Comment on above: Performed By: #### G FR, TSH, ADIFF, ANEU, CBC, LIPID, CMP #### [address] [address] CMPon 07-21-2023 Albumin Level 3.7 G/dL Normal 3.5-5.0 [facility] ([place]) Comment on above: Performed By: #### G FR, TSH, ADIFF, ANEU, CBC, LIPID, CMP #### [address] [address] Albumin/Globulin [Mass ratio] 1.0 {ratio} Low 1.1-2.5 [facility] ([place]) Comment on above: Performed By: #### G FR, TSH, ADIFF, ANEU, CBC, LIPID, CMP #### [address] [address] ALP [Catalytic activity/Vol] 45 U/L Normal 40-135 [facility] ([place]) Comment on above: Performed By: #### G FR, TSH, ADIFF, ANEU, CBC, LIPID, CMP #### [address] [address] ALT [Catalytic activity/Vol] 42 U/L Normal 14-59 [facility] ([place]) Comment on above: Performed By: #### G FR, TSH, ADIFF, ANEU, CBC, LIPID, CMP #### [address] [address] AST [Catalytic activity/Vol] 18 U/L Normal 10-40 [facility] ([place]) Comment on above: Performed By: #### G FR, TSH, ADIFF, ANEU, CBC, LIPID, CMP #### [address] [address] Bili Total 0.6 mg/dL Normal 0.2-1.0 [facility] ([place]) Comment on above: Result Comment: Use of this assay is not recommended for patients undergoing treatment with eltrombopag due to the potential for falsely elevated results. Performed By: #### G FR, TSH, ADIFF, ANEU, CBC, LIPID, CMP #### [address] [address] BUN/Creatinine Ratio 9 ratio Normal 7-27 [facility] ([place]) Comment on above: Performed By: #### G FR, TSH, ADIFF, ANEU, CBC, LIPID, CMP #### [address] [address] Calcium [Mass/Vol] 9.2 mg/dL Normal 8.4-10.2 [facility] ([place]) Comment on above: Performed By: #### G FR, TSH, ADIFF, ANEU, CBC, LIPID, CMP #### [address] [address] Chloride [Moles/Vol] 101 mmol/L Normal 98-107 [facility] ([place]) Comment on above: Performed By: #### G FR, TSH, ADIFF, ANEU, CBC, LIPID, CMP #### [address] [address] CO2 [Moles/Vol] 32 mmol/L High 22-29 [facility] ([place]) Comment on above: Performed By: #### G FR, TSH, ADIFF, ANEU, CBC, LIPID, CMP #### [address] [address] Creatinine [Mass/Vol] 0.89 mg/dL Normal 0.55-1.02 [facility] ([place]) Comment on above: Performed By: #### G FR, TSH, ADIFF, ANEU, CBC, LIPID, CMP #### [address] [address] Electrolyte Balance 4.0 mEq/L Normal 4.0-15.0 [facility] ([place]) Comment on above: Performed By: #### G FR, TSH, ADIFF, ANEU, CBC, LIPID, CMP #### [address] [address] Globulin 3.8 G/dL Normal [facility] ([place]) Comment on above: Performed By: #### G FR, TSH, ADIFF, ANEU, CBC, LIPID, CMP #### [address] [address] Glucose [Mass/Vol] 83 mg/dL Normal 70-105 [facility] ([place]) Comment on above: Performed By: #### G FR, TSH, ADIFF, ANEU, CBC, LIPID, CMP #### [address] [address] Potassium [Moles/Vol] 4.4 mmol/L Normal 3.5-5.1 [facility] ([place]) Comment on above: Performed By: #### G FR, TSH, ADIFF, ANEU, CBC, LIPID, CMP #### [address] [address] Sodium [Moles/Vol] 137 mmol/L Normal 136-145 [facility] ([place]) Comment on above: Performed By: #### G FR, TSH, ADIFF, ANEU, CBC, LIPID, CMP #### [address] [address] Total Protein 7.5 G/dL Normal 6.4-8.2 [facility] ([place]) Comment on above: Performed By: #### G FR, TSH, ADIFF, ANEU, CBC, LIPID, CMP #### [address] [address] Urea nitrogen [Mass/Vol] 8 mg/dL Normal 7-18 [facility] ([place]) Comment on above: Performed By: #### G FR, TSH, ADIFF, ANEU, CBC, LIPID, CMP #### [address] [address] LIPIDon 07-21-2023 Cholesterol [Mass/Vol] 196 mg/dL Normal 0-200 [facility] ([place]) Comment on above: Result Comment: Chol esterol Reference Interval: Less than 200 Desirable 200-239 Borderline high risk 240 and above High risk Performed By: #### G FR, TSH, ADIFF, ANEU, CBC, LIPID, CMP #### [address] [address] Cholesterol in HDL [Mass/Vol] 45 mg/dL Normal 40-60 [facility] ([place]) Comment on above: Performed By: #### G FR, TSH, ADIFF, ANEU, CBC, LIPID, CMP #### [address] [address] Cholesterol in LDL [Mass/Vol] 122 mg/dL Normal 0-130 [facility] ([place]) Comment on above: Performed By: #### G FR, TSH, ADIFF, ANEU, CBC, LIPID, CMP #### [address] [address] Triglyceride [Mass/Vol] 146 mg/dL Normal 0-150 [facility] ([place]) Comment on above: Result Comment: Trig lyceride Reference Interval: Less than 150 Normal 150-199 Borderline high risk 200-499 High risk 500 or higher Very high risk Performed By: #### G FR, TSH, ADIFF, ANEU, CBC, LIPID, CMP #### [address] [address] TSHon 07-21-2023 TSH Qn 1.61 m[IU]/L Normal 0.36-3.74 [facility] ([place]) Comment on above: Performed By: #### G FR, TSH, ADIFF, ANEU, CBC, LIPID, CMP #### [id number] [place], [place] [address] CAMELIA SCREENING W TOMOon 11-06 [facility] ANES POSTPROC EVALon 022 ANES POSTPROC EVAL HNO ID: [id number] Author: Chinmay Raya MD Service: Anesthesiology Author Type: Anesthesiologist Type: Anesthesia Postprocedure Evaluation Filed: 08/28/2022 10:37 AM Note Text: POST ANESTHESIA EVALUATION NOTE : 1975 Procedure Summary Date: 08/28/22 Room / Location: [place] [address] / [place] Anesthesia Start: 0831 Anesthesia Stop: 1024 Procedure: LAPAROSCOPIC CHOLECYSTECTOMY (Abdomen) Diagnosis: Calculus of gallbladder with cholecystitis of other acuity without obstruction RUQ pain (Calculus of gallbladder with cholecystitis of other acuity without obstruction [K80.18]) (RUQ pain [R10.11]) Surgeons: Rico Clifford MD Responsible Provider: Chinmay Raya MD Anesthesia Type: general ASA Status: 3 Anesthesia Type: general Airway Type: ETT Last Vitals Vitals Value Taken Time BP 174/84 08/28/22 1030 Temp 36.5 08/28/22 1036 Pulse 69 08/28/22 1035 Resp 21 08/28/22 1035 SpO2 93 % 08/28/22 1035 Vitals shown include unvalidated device data. Post Anesthesia Patient Status Patient Evaluation: bedside. Anticipated Disposition: phase 2 then home. Neurological Status: aware and responsive. Pulmonary Status: breathing comfortably on room air Airway Control: returned to baseline unsupported. Cardiovascular Status: stable. Pain Management: clinically adequate Postoperative Hydration: acceptable. Intraoperative Events: no significant anesthesia events Post Operative Nausea/Vomiting Status: no significant post operative nausea or vomiting Recommendation: continue current plan of care. Anesthesia Observations No Documentation SIGNATURE: Chinmay Raya MD PATIENT NAME: Tameka Allan DATE: August 28, 2022 TIME: 10:36 AM CSN: [id number] [facility] ANES PRE-OPon 08-28-2022 ANES PRE-OP HNO ID: [id number] Author: Chinmay Raya MD Service: Anesthesiology Author Type: Anesthesiologist Type: Anesthesia Preprocedure Evaluation Filed: 08/28/2022 7:27 AM Note Text: ANESTHESIOLOGY DAY OF SURGERY NOTE : 1975 Procedure Information Date/Time: 08/28/22829 Procedure: LAPAROSCOPIC CHOLECYSTECTOMY WITH GRAMS [place] Surgeons: Rico Clifford MD Estimated body mass index is 41.32 kg/m? as calculated from the following: Height as of this encounter: 167.6 cm (5' 6). Weight as of this encounter: 116.1 kg (256 lb). Most recent hematocrit and potassium results: Hematocrit 42.7 01/29/2016 Potassium 4.3 01/29/2016 Relevant Problems No relevant active problems I - PHYSICAL EVALUATION AIRWAY Patient intubated: No. Tracheostomy tube not present Mallampati: II. TM distance: >3 FB. Neck ROM: full ROM without neurological symptoms. Mouth opening: adequate. Short neck: no. Thick neck: no Lang present: no DENTAL Normal dental observations. Dental findings: teeth intact. Additional exam findings: no II - ANESTHESIA PLAN ASA Score: 3 Anesthetic Plan: general Airway type: ETT The patient is not a current smoker. NPO Status: adequate Beta Bobbi Monitoring Plan Monitoring plan: standard ASA. Post Procedure Analgesic Plan Postoperative analgesic plan: parenteral or oral opioids and multimodal analgesia. Patient / Surrogate agrees to blood products: blood products not planned DNR status not reviewed with patient and/or family prior to surgery. Significant changes in the patient condition since the History and Physical, not otherwise documented in primary service progress note: no. Potential Anesthesia issues that may suggest increased risk of complications or contraindication to planned procedure: none. Vitals Value Taken Time BP 134/62 08/28/22722 Pulse 54 08/28/22722 Resp 20 08/28/22722 Temp 36.2 ?C (97.2 ?F) 08/28/22722 SpO2 95 % 08/28/22722 Facility-Administered Medications as of 08/28/2022 Medication Dose Route Frequency - lactated ringers iv infusion 5-30 mL/hr INTRAVENOUS CONTINUOUS - ceFAZolin iv piggyback 2 g in D5W (iso-osmotic) 100 mL (ANCEF) 2 g INTRAVENOUS Pre-Op Once Outpatient Medications as of 08/28/2022 Medication Sig - metFORMIN ER (GLUCOPHAGE XR) 500 mg 24 hr tablet daily with breakfast. - levonorgestrel (LILETTA) 20.1 mcg/24 hrs (6 yrs) 52 mg IUD 1 Each by INTRAUTERINE route as directed. put in at [facility] - calcium-vitamin D3-vitamin K 500 mg-1,000 unit-40 mcg chew Take by mouth once daily. I have interviewed and examined the patient. I have reviewed the medical record and/or the pre-anesthesia evaluation, pertinent labs, and test results. This contains updated information obtained within 48 hours of Surgery/Procedure. SIGNATURE: Chinmay Raya MD PATIENT NAME: Tameka Allan DATE: August 28, 2022 TIME: 7:27 AM CSN: [id number] [facility] HISTORY PHYSICALon HISTORY PHYSICAL HNO ID: [id number] Author: Rico Clifford MD Service: General Surgery Author Type: Physician Type: HANDP Filed: 08/28/2022 8:16 AM Note Text: HISTORY AND PHYSICAL Tameka Allan 1975 REFERRING PHYSICIAN: Zainab Fountain (Stagecraft Professor), * CHIEF COMPLAINT: Consult (RUQ pain, Ultra sound done gallstones) HPI: Tameka is a 46 year old female with a complaint of right upper quadrant pain. The patient has had symptoms of right upper quadrant pain for 1 year. The symptoms have maintained, over the past 1 year. The pain does not radiate to the back. Food does aggravate her symptoms. Alleviating factors include: none. The patient was seen by her primary care physician. Tameka underwent an ultrasound. These tests demonstrated cholelithiasis. The patient is referred for evaluation and treatment. The patient is being seen by me today at the request of Dr. Fountain for my opinion and advice regarding Calculus of gallbladder with cholecystitis of other acuity without obstruction (primary encounter diagnosis) Ruq pain. SIGNIFICANT MEDICAL PROBLEMS: PAST MEDICAL HISTORY PAST MEDICAL HISTORY Diagnosis Date Atypical mole Benign colon polyp BRCA negative 2014 1 AND 2 Diabetes mellitus (HCC) Inflammatory breast cancer right breast, stage 3C- in lymphnodes- triple negative Right tibial fracture Snoring OPERATIONS: PAST SURGICAL HISTORY PAST SURGICAL HISTORY Procedure Laterality Date BREAST BIOPSY 07/28/2015 COLONOSCOPY FLX DX W/COLLJ SPEC WHEN PFRMD 11/19/2013 Colonoscopy COLONOSCOPY FLX DX W/COLLJ SPEC WHEN PFRMD N/A 11/22/2016 COLONOSCOPY FLX DX W/COLLJ SPEC WHEN PFRMD 12/13/2019 Colonoscopy 5 year interval EXTRACTION, ERUPTED TOOTH OR EXPOSED ROOT (ELEVATION AND/OR FORCEPS REMOVAL) 1998 wisdom teeth INSERT INTRAUTERINE DEVICE 07/05/2015, 06/22/2020 MAST MODF RAD W/AX LYMPH NOD W/WO PECT/ABELARDO MIN Right 02/05/2016 SALPINGECTOMY COMPLETE/PARTIAL UNI/BI SPX 06/22/2020 bilateral salpingectomy, sterilization CURRENT MEDICATIONS: CURRENT MEDICATIONS Current Outpatient Medications Medication Sig Dispense Refill metFORMIN ER (GLUCOPHAGE XR) 500 mg 24 hr tablet TAKE 1 TABLET BY MOUTH EACH DAY WITH DINNER. DO NOT CRUSH, CHEW, OR SPLIT. levonorgestrel (LILETTA) 20.1 mcg/24 hrs (6 yrs) 52 mg IUD 1 Each by INTRAUTERINE route as directed. put in at [facility] 1 Intra Uterine Device 0 calcium-vitamin D3-vitamin K 500 mg-1,000 unit-40 mcg chew Take by mouth once daily. No current facility-administered medications for this visit. ALLERGIES: No Known Allergies and Seasonal Allergies PERSONAL HISTORY: SOCIAL HISTORY Social History Tobacco Use Smoking status: Former Packs/day: 0.25 Years: 5.00 Pack years: 1.25 Types: Cigarettes Start date: 1995 Quit date: 02/20/2007 Years since quittin.4 Smokeless tobacco: Never Vaping Use Vaping Use: Never used Substance Use Topics Alcohol use: Yes Alcohol/week: 2.0 standard drinks Types: 1 Cans of beer, 1 Glasses of wine per week Comment: occassional, social Drug use: No FAMILY HISTORY: FAMILY HISTORY FAMILY HISTORY Problem Relation Age of Onset Hypertension Mother Colon Cancer Father passed in 1983 in his 50's Breast Cancer Other 2nd degree relative Ovarian cancer Paternal Grandmother Other 2nd degree relative other (precancerous breast lesion) Maternal Grandmother 80 Cancer Paternal Grandfather kidney Ovarian cancer Other REVIEW OF SYMPTOMS: The review of systems data was entered by the nurse and reviewed by in Nursing Notes: Lenore Mirza LPN 08/02/2022 8:20 AM Signed REVIEW OF SYSTEMS: General: The patient denies fatigue, denies weight loss, denies weight gain, denies feeling hot, and denies feelings of cold. Eyes: The patient denies glaucoma, denies eye injury/surgery, wears glasses or contacts. Ear/Nose/Throat: The patient denies allergies, denies hayfever, denies ear infections, and denies bloody noses. Cardiovascular: The patient denies chest pain, denies heart disease, denies high blood pressure,denies cardiac stent, denies prior heart attack, denies irregular heart beat, denies high cholesterol, denies poor circulation, denies heart failure, other cardiac issues, denies claudication, denies cold feet, denies peripheral arterial stent. Respiratory: The patient denies tuberculosis, denies pneumonia, denies frequent cough, denies pulmonary embolism, denies shortness of breath, and denies coughing up blood. Gastrointestinal: The patient denies difficulty swallowing, denies acid reflux, denies ulcers, denies vomiting, denies jaundice/hepatitis, notes gallbladder problems, denies black or tarry stools, denies hemorrhoids, denies bleeding from rectum, denies diverticulitis, denies constipation, denies diarrhea, denies loss of stool control, and denies hernias. Kidney/Bladder: The patient denies kidney stones, denies urine infections, and denies bloody urine. Skin: T (more content not included)... [facility] OPERATIVE NOon 08-28-2022 OPERATIVE NO HNO ID: [id number] Author: Rico lCifford MD Service: General Surgery Author Type: Physician Type: Operative Report Filed: 08/28/2022 10:07 AM Note Text: OPERATIVE/PROCEDURE REPORT LOG ID: [id number] SURGERY/PROCEDURE DATE: 08/28/2022 INCISION/PROCEDURE START TIME: 8:55 AM INCISION CLOSE/PROCEDURE END TIME: 10:05 AM SURGEON(S)/PROCEDURALI ST(S) AND PIE ICER MACHINE(S): Surgeon(s) and Role: * Rico Clifford MD - Primary Physician [employer] Worker: Whitney Bruce PA-C; Maria Guadalupe Bhandari PA-C SURGERY/PROCEDURE(S): Laparoscopic cholecystectomy ANESTHESIA: General SURGERY/PROCEDURE DETAILS: Patient was brought into the operating room. Placed in the supine position. Under excellent general anesthetic the abdomen was sterilely prepped and draped in the usual fashion. Local was injected supraumbilically. Incision was made. Dissection was carried down to the fascia. Fascia was grasped with a Christy. Varies needle was placed inside the abdomen. The abdomen was insufflated to 15 torr. A 10/12 trocar was placed without difficulty. Patient was placed on the head up and rotated to the left position. A subxiphoid #5 trochars placed, inferior to this another #5 trochars placed, laterally a #5 trocar was placed. All these trochars were placed under direct visualization without injury to underlying structures. I aspirated out the gallbladder. I grabbed the fundus retracted in cephalad direction grabbed the infundibulum retracted laterally I dissected out the cystic duct and the cystic artery. I placed hemoclips proximally and distally on the artery divided the artery and placed hemoclips proximally and distally on the duct and ligated the duct. I deliver the gallbladder from gallbladder bed with use of electrocautery. I had spillage of bile but no stones. I placed the specimen a specimen bag and delivered it through the umbilical port. I did need to lengthen the incision in a cephalad direction in order to get the gallbladder out secondary to an extremely large stone being in the gallbladder itself. I reinflated the abdomen good pneumostasis was noted. I irrigated the right upper quadrant with normal saline. Good pneumostasis was noted. I removed the trochars under direct visualization good pneumostasis was noted. I closed the fascia of the umbilical port with interrupted 0 Vicryl's local was injected more in the fascia. Skin incisions were closed with subcuticular stitches of 4-0 Monocryl. Steri-Strips were applied sterile dressings were applied and the patient tolerated the procedure well. Whitney Bruce PA-C was my safety assistant. She assisted with retraction, visualization and performed skin closure. No additional surgeons or qualified residents were available. PRE-OP/PRE-PROCEDURE DIAGNOSIS: Chronic cholecystitis with cholelithiasis without obstruction POST-OP/POST-PROCEDURE DIAGNOSIS: Same as Preop ESTIMATED BLOOD LOSS: < 15 mls SPECIMENS: Gallbladder IMPLANTABLE DEVICES: NONE DRAINS: None COMPLICATIONS: None PARTICIPATION IN SURGERY/PROCEDURE: I/primary surgeon/proceduralist performed the procedure with assistance. SIGNATURE: Rico Clifford III, MD PATIENT NAME: Tameka Allan DATE: August 28, 2022 TIME: 9:55 AM [facility] SURGICAL PATHOLOGYon 022 CASE REPORT [facility] Comment on above: Order Comment: Speci men Type: TISSUE SPECIMEN Ordering Facility: [facility] Address: [address] [place] [address] Result Comment: Surg ica Pathology Report Case: [id number] Authorizing Provider: Rico Clifford MD Collected: 08/28/2022 09:02 AM Ordering Location[facility] Received: 08/28/2022 10:36 AM Pathologist: Dara Asencio MD Specimen: GALLBLADDER Performed By: #### S #### [facility] CLIA [id number] [address] [place] [address] CLINICAL HISTORY [facility] Comment on above: Order Comment: Speci men Type: TISSUE SPECIMEN Ordering Facility: [facility] Address: [address] [place] [address] Result Comment: Pre- op diagnosis: Calculus of gallbladder with cholecystitis of other acuity without obstruction [K80.18] RUQ pain [R10.11] Performed By: #### S #### [facility] CLIA [id number] [address] [place] [address] FINAL DIAGNOSIS [facility] Comment on above: Order Comment: Speci men Type: TISSUE SPECIMEN Ordering Facility: [facility] Address: [address] [place] [address] Result Comment: A. G allbladder, cholecystectomy:- Chronic cholecystitis with cholesterolosis and cholelithiasis. - Two benign lymph nodes. SE/MT 08/30/2022 Performed By: #### S #### [facility] CLIA [id number] [address] [place] [address] FINAL PERFORMING LAB [facility] Comment on above: Order Comment: Speci men Type: TISSUE SPECIMEN Ordering Facility: [facility] Address: [address] [place] [address] Result Comment: Diag nostic interpretation performed at [address] [place] [address] CLIA# [id number] Manager Car: Brayden Sanabria M.D. Performed By: #### S #### [facility] IA [id number] [address] [place] [address] STATES OF JACKELYN GROSS DESCRIPTION A. GALLBLADDER [facility] Comment on above: Order Comment: Speci men Type: TISSUE SPECIMEN Ordering Facility: [facility] Address: [address] [place], [place] [id number] Result Comment: Rece ived in formalin labeled gallbladder is a gallbladder measuring 8.1 x 3.6 x 3.4 cm. The serosal surface is smooth and glistening. The lumen contains thick viscous bile. The wall averages 0.1 cm in thickness. The mucosa is bile-stained and demonstrates longitudinally oriented yellow streaks more prominent on the segments of the ridges of the mucosa. Multiple ubndy-green firm calculi are present ranging from 0.6 to 5.5 cm in greatest dimension. The cystic duct is not impacted. Adjacent to the cystic duct are 2 lymph nodes measuring 0.4 and 0.7 cm in greatest dimension. Knitting Supervisor sections are submitted in formalin in cassette A1. Gross examination performed at [facility], [address] [place] [address] 08/28/22 2:01 PM Performed By: #### S #### [facility] CLIA [id number] [address] [place], [place] [id number] [facility] SCREENINGon 11-03-2020 [facility] SCREENING Final Report DATE OF EXAM: Nov 03 2020 11:30AM MARVIN [id number] - [facility] SCREENING / PROCEDURE REASON: Breast screening Physician Interpretation #[id number] - [facility] SCREENING BILATERAL DIGITAL SCREENING MAMMOGRAM WITH CAD: 11/03/2020 HISTORY: Breast Screening Routine screening mammogram. Patient reports no breast problems. RESULT: TECHNIQUE: The study was acquired using full field digital technology and interpreted from soft copy. Current study was also evaluated with a Computer Aided Detection (CAD). Comparison is made to exams dated: 09/14/2019 mammogram, 09/10/2018 mammogram, 09/02/2017 mammogram, and 08/15/2016 mammogram - [facility]. There are scattered fibroglandular elements in both breasts. No significant masses, calcifications, or other findings are seen in either breast. There has been no significant interval change. IMPRESSION: NEGATIVE There is no mammographic evidence of malignancy. A 1 year screening mammogram is recommended. Norm weston/rosangela:11/03/2020 13:07:33 Nuclear Control Room Operator(s): Eladia Barahona(Madhav)(M), [facility] letter sent: Normal over 40 Mammogram BI-RADS: 1 Negative Multiple national specialty organizations have released breast cancer screening guidelines for women at average risk for developing breast cancer - guidelines that are based on both evidence and opinion, yet differ on when to start and how often to screen for breast cancer. With representation from Breast Imaging, Internal Medicine, Women's Health, Family Medicine, and Medical/Surgical Oncology, the [facility] has carefully reviewed the data and reached the following consensus: 1) All women should engage in shared decision-making with their providers to decide when to start and how often to screen; 2) All women should have the opportunity to start screening mammography at age 40; 3) For women ages 45-55, we recommend annual screening mammograms; 4) For women ages 55 and over, we support both the transition from an annual to a biennial interval if this aligns more with patient's values and preferences, or continuation with annual screening; 5) All women should discuss with their providers when to stop screening mammograms. Fuel Efficient Aircraft Designer: Rosangela Transcribe Date/Time: Nov 03 2020 11:29A Dictated by : NORM LAW MD This examination was interpreted and the report reviewed and electronically signed by: NORM LAW MD on Nov 03 2020 1:07PM EST [facility] Vital Signs Date Time Vital Sign Value Performing Clinician Enrique aleman 02-09-2025 07:42-0400 Body height 166.4 cm Lenore Morelos APRN.CNP Work Phone: [facility] 02-09-2025 07:42-0400 Body mass index (BMI) [Ratio] 36.58 kg/m2 Lenore Morelos APRN.CNP Work Phone: [facility] 02-09-2025 07:42-0400 Body weight 101.24 kg Lenore Reisleah INTELLIGENCE OPERATIONS.MANAGER BUSINESS PLANNING Work Phone: [facility] 12-13-2024 08:57-0500 Heart rate 69 /min Rico Clifford MD Work Phone: [facility] 12-13-2024 08:57-0500 Respiratory rate 16 /min Rico Clifford MD Work Phone: [facility] 12-13-2024 08:57-0500 SaO2% (BldA) [Mass fraction] 96 % Rico Clifford MD Work Phone: [facility] 12-13-2024 08:47-0500 Diastolic blood pressure 57 mm[Hg] Rico Clifford MD Work Phone: [facility] 12-13-2024 08:47-0500 Systolic blood pressure 119 mm[Hg] Rico Clifford MD Work Phone: [facility] 12-13-2024 07:38-0500 Body temperature 97.2 [degF] Rico Clifford MD Work Phone: [facility] 11-11-2024 13:34-0500 Body height 166.4 cm Shanique Jacinto INTELLIGENCE OPERATIONS.MANAGER BUSINESS PLANNING Work Phone: [facility] 11-11-2024 13:34-0500 Body mass index (BMI) [Ratio] 37.2 kg/m2 Shanique Jacinto [employer]LLIGENCE OPERATIONS.MANAGER BUSINESS PLANNING Work Phone: [facility] 11-11-2024 13:34-0500 Body weight 102.97 kg Shanique Jacinto INTELLIGENCE OPERATIONS.MANAGER BUSINESS PLANNING Work Phone: [facility] 11-11-2024 13:34-0500 Diastolic blood pressure 71 mm[Hg] Shanique Jacinto INTELLIGENCE OPERATIONS.MANAGER BUSINESS PLANNING Work Phone: [facility] 11-11-2024 13:34-0500 Heart rate 76 /min Shanique Jacinto INTELLIGENCE OPERATIONS.MANAGER BUSINESS PLANNING Work Phone: [facility] 11-11-2024 13:34-0500 Systolic blood pressure 106 mm[Hg] Shanique Jacinto INTELLIGENCE OPERATIONS.MANAGER BUSINESS PLANNING Work Phone: [facility] 11-08-2024 09:22-0500 Body height 166.4 cm Ludy Javier INTELLIGENCE OPERATIONS.MANAGER BUSINESS PLANNING Work Phone: [facility] 11-08-2024 09:22-0500 Body mass index (BMI) [Ratio] 37.3 kg/m2 Ludy Javier [employer]TELLIGENCE OPERATIONS.MANAGER BUSINESS PLANNING Work Phone: [facility] 11-08-2024 09:22-0500 Body temperature 97.11 [degF] Ludy Javier INTELLIGENCE OPERATIONS.MANAGER BUSINESS PLANNING Work Phone: [facility] 11-08-2024 09:22-0500 Body weight 103.24 kg Ludy Javier INTELLIGENCE OPERATIONS.MANAGER BUSINESS PLANNING Work Phone: [facility] 11-08-2024 09:22-0500 Diastolic blood pressure 76 mm[Hg] Ludy Javier INTELLIGENCE OPERATIONS.MANAGER BUSINESS PLANNING Work Phone: [facility] 11-08-2024 09:22-0500 Heart rate 78 /min Ludy Javier INTELLIGENCE OPERATIONS.MANAGER BUSINESS PLANNING Work Phone: [facility] 11-08-2024 09:22-0500 Respiratory rate 17 /min Ludy Javier [employer]TELLIGENCE OPERATIONS.MANAGER BUSINESS PLANNING Work Phone: [facility] 11-08-2024 09:22-0500 SaO2% (BldA) [Mass fraction] 100 % Ludy Javier [employer]TELLIGENCE OPERATIONS.MANAGER BUSINESS PLANNING Work Phone: [facility] 11-08-2024 09:22-0500 Systolic blood pressure 118 mm[Hg] Ludy Javier INTELLIGENCE OPERATIONS.MANAGER BUSINESS PLANNING Work Phone: [facility] 10-22-2024 09:30-0500 Body mass index (BMI) [Ratio] 36.02 kg/m2 Lenore Morelos INTELLIGENCE OPERATIONS.MANAGER BUSINESS PLANNING Work Phone: [facility] 10-22-2024 09:30-0500 Body weight 99.75 kg Lenore Morelos INTELLIGENCE OPERATIONS.MANAGER BUSINESS PLANNING Work Phone: [facility] 05-19-2024 08:42-0400 Body mass index (BMI) [Ratio] 37.58 kg/m2 Lenore Hasenstaub [employer]TELLIGENCE OPERATIONS.MANAGER BUSINESS PLANNING Work Phone: [facility] 05-19-2024 08:42-0400 Body weight 104.06 kg Lenore Hasenstaub INTELLIGENCE OPERATIONS.MANAGER BUSINESS PLANNING Work Phone: [facility] 04-23-2024 14:21-0400 Body height 166.4 cm Billie Lozoya MD Work Phone: [facility] 04-23-2024 14:21-0400 Body mass index (BMI) [Ratio] 37.87 kg/m2 Billie Lozoya MD Work Phone: [facility] 04-23-2024 14:21-0400 Body temperature 96.8 [degF] Billie Lozoya MD Work Phone: [facility] 04-23-2024 14:21-0400 Body weight 104.87 kg Billie Lozoya MD Work Phone: [facility] 04-23-2024 14:21-0400 Diastolic blood pressure 66 mm[Hg] Billie Lozoya MD Work Phone: [facility] 04-23-2024 14:21-0400 Heart rate 79 /min Billie Lozoya MD Work Phone: [facility] 04-23-2024 14:21-0400 Respiratory rate 20 /min Billie Lozoya MD Work Phone: [facility] 04-23-2024 14:21-0400 SaO2% (BldA) [Mass fraction] 98 % Billie Lozoya MD Work Phone: [facility] 04-23-2024 14:21-0400 Systolic blood pressure 121 mm[Hg] Billie Lozoya MD Work Phone: [facility] 02-09-2024 07:49-0400 Body height 166.4 cm Lenore Hasenstaub INTELLIGENCE OPERATIONS.MANAGER BUSINESS PLANNING Work Phone: [facility] 02-09-2024 07:49-0400 Body mass index (BMI) [Ratio] 38.12 kg/m2 Lenore Hasenstaub [employer]TELLIGENCE OPERATIONS.MANAGER BUSINESS PLANNING Work Phone: [facility] 02-09-2024 07:49-0400 Body weight 105.51 kg Lenore Hasenstaub INTELLIGENCE OPERATIONS.MANAGER BUSINESS PLANNING Work Phone: [facility] 02-09-2024 07:49-0400 Diastolic blood pressure 76 mm[Hg] Lenore Hasenstaub INTELLIGENCE OPERATIONS.MANAGER BUSINESS PLANNING Work Phone: [facility] 02-09-2024 07:49-0400 Heart rate 68 /min Lenore Hasenstaub INTELLIGENCE OPERATIONS.MANAGER BUSINESS PLANNING Work Phone: [facility] 02-09-2024 07:49-0400 Systolic blood pressure 118 mm[Hg] Lenore Hasenstaub INTELLIGENCE OPERATIONS.MANAGER BUSINESS PLANNING Work Phone: [facility] 11-17-2023 08:21-0500 Body height 166.4 cm Lenore Hasenstaub INTELLIGENCE OPERATIONS.MANAGER BUSINESS PLANNING Work Phone: [facility] 11-17-2023 08:21-0500 Body weight 107.05 kg Lenore Hasenstaub INTELLIGENCE OPERATIONS.MANAGER BUSINESS PLANNING Work Phone: [facility] 11-17-2023 08:21-0500 Diastolic blood pressure 78 mm[Hg] Lenore Hasenstaub INTELLIGENCE OPERATIONS.MANAGER BUSINESS PLANNING Work Phone: [facility] 11-17-2023 08:21-0500 Heart rate 69 /min Lenore Hasenstaub INTELLIGENCE OPERATIONS.MANAGER BUSINESS PLANNING Work Phone: [facility] 11-17-2023 08:21-0500 Systolic blood pressure 116 mm[Hg] Lenore Hasenstaub INTELLIGENCE OPERATIONS.MANAGER BUSINESS PLANNING Work Phone: [facility] 08-27-2023 08:42-0500 Body height 165.1 cm Lenore Hasenstaub INTELLIGENCE OPERATIONS.MANAGER BUSINESS PLANNING Work Phone: [facility] 08-27-2023 08:42-0500 Body weight 106.5 kg Lenore Hasenstaub INTELLIGENCE OPERATIONS.MANAGER BUSINESS PLANNING Work Phone: [facility] 08-27-2023 08:42-0500 Diastolic blood pressure 72 mm[Hg] Lenore Hasenstaub INTELLIGENCE OPERATIONS.MANAGER BUSINESS PLANNING Work Phone: [facility] 08-27-2023 08:42-0500 Heart rate 65 /min Lenore Hasenstaub INTELLIGENCE OPERATIONS.MANAGER BUSINESS PLANNING Work Phone: [facility] 08-27-2023 08:42-0500 Systolic blood pressure 106 mm[Hg] Lenore Hasenstaub INTELLIGENCE OPERATIONS.MANAGER BUSINESS PLANNING Work Phone: [facility] 06-09-2023 15:28-0400 Body height 165.1 cm Lenore Hasenstaub INTELLIGENCE OPERATIONS.MANAGER BUSINESS PLANNING Work Phone: [facility] 06-09-2023 15:28-0400 Body weight 106.32 kg Lenore Hasenstaub INTELLIGENCE OPERATIONS.MANAGER BUSINESS PLANNING Work Phone: [facility] 06-09-2023 15:28-0400 Diastolic blood pressure 70 mm[Hg] Lenore Hasenstaub INTELLIGENCE OPERATIONS.MANAGER BUSINESS PLANNING Work Phone: [facility] 06-09-2023 15:28-0400 Heart rate 55 /min Lenore Hasenstaub INTELLIGENCE OPERATIONS.MANAGER BUSINESS PLANNING Work Phone: [facility] 06-09-2023 15:28-0400 Systolic blood pressure 112 mm[Hg] Lenore Hasenstaub INTELLIGENCE OPERATIONS.MANAGER BUSINESS PLANNING Work Phone: [facility] 05-30-2023 12:50-0400 Body height 165.1 cm Billie Lozoya MD Work Phone: [facility] 05-30-2023 12:50-0400 Body temperature 97.5 [degF] Billie Lozoya MD Work Phone: [facility] 05-30-2023 12:50-0400 Body weight 107.86 kg Billie Lozoya MD Work Phone: [facility] 05-30-2023 12:50-0400 Diastolic blood pressure 90 mm[Hg] Billie Lozoya MD Work Phone: [facility] 05-30-2023 12:50-0400 Heart rate 66 /min Billie Lozoya MD Work Phone: [facility] 05-30-2023 12:50-0400 SaO2% (BldA) [Mass fraction] 98 % Billie Lozoya MD Work Phone: [facility] 05-30-2023 12:50-0400 Systolic blood pressure 140 mm[Hg] Billie Lozoya MD Work Phone: [facility] 11-06-2022 10:29-0500 Body height 165.1 cm Shanique Jacinto INTELLIGENCE OPERATIONS.MANAGER BUSINESS PLANNING Work Phone: [facility] 11-06-2022 10:29-0500 Body weight 112.95 kg Shanique Jacinto INTELLIGENCE OPERATIONS.MANAGER BUSINESS PLANNING Work Phone: [facility] 11-06-2022 10:29-0500 Diastolic blood pressure 84 mm[Hg] Shanique Jacinto INTELLIGENCE OPERATIONS.MANAGER BUSINESS PLANNING Work Phone: [facility] 11-06-2022 10:29-0500 Heart rate 72 /min Shanique Jacinto INTELLIGENCE OPERATIONS.MANAGER BUSINESS PLANNING Work Phone: [facility] 11-06-2022 10:29-0500 Systolic blood pressure 121 mm[Hg] Shanique Jacinto INTELLIGENCE OPERATIONS.MANAGER BUSINESS PLANNING Work Phone: [facility] 09-09-2022 12:52-0500 Body temperature 97.11 [degF] Rico Clifford MD Work Phone: [facility] 09-09-2022 12:52-0500 Diastolic blood pressure 82 mm[Hg] Rico Clifford MD Work Phone: [facility] 09-09-2022 12:52-0500 Heart rate 71 /min Rico Clifford MD Work Phone: [facility] 09-09-2022 12:52-0500 SaO2% (BldA) [Mass fraction] 97 % Rcio Clifford MD Work Phone: [facility] 09-09-2022 12:52-0500 Systolic blood pressure 126 mm[Hg] Rico Clifford MD Work Phone: [facility] 08-02-2022 09:05-0400 Body height 167.6 cm Shanique Shea APRN.MANAGER BUSINESS PLANNING Work Phone: [facility] 08-02-2022 09:05-0400 Body weight 116.12 kg Shanique Shea APRN.MANAGER BUSINESS PLANNING Work Phone: [facility] 08-02-2022 09:05-0400 Diastolic blood pressure 68 mm[Hg] Shanique Shea INTELLIGENCE OPERATIONS.MANAGER BUSINESS PLANNING Work Phone: [facility] 08-02-2022 09:05-0400 Systolic blood pressure 110 mm[Hg] Shanique Shea INTELLIGENCE OPERATIONS.MANAGER BUSINESS PLANNING Work Phone: [facility] 08-02-2022 08:17-0400 Body height 167.6 cm Rico Clifford MD Work Phone: [facility] 08-02-2022 08:17-0400 Body temperature 96.01 [degF] Rico Clifford MD Work Phone: [facility] 08-02-2022 08:17-0400 Body weight 116.57 kg Rico Clifford MD Work Phone: [facility] 08-02-2022 08:17-0400 Diastolic blood pressure 82 mm[Hg] Rico Clifford MD Work Phone: [facility] 08-02-2022 08:17-0400 Heart rate 84 /min Rico Clifford MD Work Phone: [facility] 08-02-2022 08:17-0400 SaO2% (BldA) [Mass fraction] 97 % Rico Clifford MD Work Phone: [facility] 08-02-2022 08:17-0400 Systolic blood pressure 124 mm[Hg] Rico Clifford MD Work Phone: [facility] 11-05-2021 10:22-0500 Body height 165.1 cm Shanique Jacinto INTELLIGENCE OPERATIONS.MANAGER BUSINESS PLANNING Work Phone: [facility] 11-05-2021 10:22-0500 Body weight 73.03 kg Shanique Jacinto INTELLIGENCE OPERATIONS.MANAGER BUSINESS PLANNING Work Phone: [facility] 11-05-2021 10:22-0500 Diastolic blood pressure 73 mm[Hg] Shanique Jacinto INTELLIGENCE OPERATIONS.MANAGER BUSINESS PLANNING Work Phone: [facility] 11-05-2021 10:22-0500 Heart rate 71 /min Shanique Jacinto INTELLIGENCE OPERATIONS.MANAGER BUSINESS PLANNING Work Phone: [facility] 11-05-2021 10:22-0500 Systolic blood pressure 125 mm[Hg] Shanique Jacinto INTELLIGENCE OPERATIONS.MANAGER BUSINESS PLANNING Work Phone: [facility] Encounters Encounter Date Encounter Type Care Provider Facility Start: 05-07-2025 End: 05-09-2025 Refill Lenore Morelos APRN.MANAGER BUSINESS PLANNING Work Phone: [facility] Comment on above: Refill Request Start: 04-30-2025 End: 04-30-2025 ambulatory ZAINAB FOUNTAIN APRN-CAMILLA Facility:[facility] Start: 04-30-2025 End: 04-30-2025 Patient encounter procedure ZAINAB FOUNTAIN INTELLIGENCE OPERATIONS-MANAGER BUSINESS PLANNING [facility] Start: 03-14-2025 End: 03-15-2025 ambulatory Lenore Morelos APRN.MANAGER BUSINESS PLANNING Work Phone: [facility] Start: 03-14-2025 End: 03-15-2025 Follow-up encounter Lenore Morelos APRN.MANAGER BUSINESS PLANNING Work Phone: [facility] Comment on above: Follow-up Start: 02-09-2025 End: 02-09-2025 Patient encounter procedure Lenore Munoz Italo RANDHAWA.MANAGER BUSINESS PLANNING Work Phone: [facility] Comment on above: Class 3 severe obesi ty with serious comorbidity in adult (Primary Dx); Inflammatory breast cancer, right (HCC); Type 2 diabetes mellitus with other specified complication, without long-term current use of insulin (HCC); HALIMA (obstructive sleep apnea); Dietary counseling and surveillance; BMI 37.0-37.9, adult; Abnormal craving Start: 02-09-2025 End: 02-09-2025 Telemedicine consultation with patient Lenore Morelos INTELLIGENCE OPERATIONS.MANAGER BUSINESS PLANNING Work Phone: [facility] Start: 02-09-2025 End: 02-09-2025 ambulatory ZAINAB FOUNTAIN Facility:[facility] Start: 12-21-2024 End: 12-21-2024 ambulatory ZAINAB FOUNTAIN Facility:[facility] Start: 12-21-2024 End: 12-21-2024 Patient encounter procedure Ludy Javier INTELLIGENCE OPERATIONS.MANAGER BUSINESS PLANNING Work Phone: General Surgery Comment on above: Hyperplastic polyp o f ascending colon (Primary Dx) Start: 12-14-2024 End: 02-13-2025 Follow-up encounter Rico Clifford MD Work Phone: General Surgery Start: 12-13-2024 End: 12-13-2024 ambulatory ZAINAB FOUNTAIN Facility:[facility] Start: 12-13-2024 End: 12-13-2024 Subsequent hospital visit by physician Rico Clifford MD Work Phone: Ambulatory Surgery Comment on above: Screen for colon can cer [Z12.11] Start: 11-18-2024 End: 11-18-2024 ambulatory Lenore Morelos [employer]TELLIGENCE OPERATIONS.MANAGER BUSINESS PLANNING Work Phone: [facility] Start: 11-18-2024 End: 11-18-2024 Patient encounter procedure Lenore Morelos INTELLIGENCE OPERATIONS.MANAGER BUSINESS PLANNING Work Phone: [facility] Comment on above: Libby Start: 11-11-2024 End: 11-11-2024 Patient encounter procedure Shanique Jacinto INTELLIGENCE OPERATIONS.MANAGER BUSINESS PLANNING Work Phone: [facility] Comment on above: Inflammatory breast cancer, right (HCC) (Primary Dx); History of right mastectomy; BRCA negative; Visit for screening mammogram Start: 11-11-2024 End: 11-11-2024 ambulatory ZAINAB FOUNTAIN Facility:[facility] Start: 11-08-2024 ambulatory ZAINAB FOUNTAIN Facilit y:[facility] Start: 11-08-2024 End: 11-08-2024 Subsequent hospital visit by physician Screen Mammo [facility] Comment on above: Visit for screening mammogram [Z12.31] Start: 11-08-2024 End: 11-08-2024 ambulatory LUDY LEE Facility:[facility] Start: 11-08-2024 End: 11-08-2024 Patient encounter procedure Ludy Lee INTELLIGENCE OPERATIONS.MANAGER BUSINESS PLANNING Work Phone: General Surgery Comment on above: Screen for colon can cer (Primary Dx); Family history of colon cancer in father Start: 10-22-2024 End: 10-22-2024 Patient encounter procedure Lenore Munoz Italo INTELLIGENCE OPERATIONS.MANAGER BUSINESS PLANNING Work Phone: [facility] Comment on above: Class 3 severe obesi ty with serious comorbidity in adult, unspecified BMI, unspecified obesity type (HCC) (Primary Dx); Dietary counseling and surveillance; BMI 40.0-44.9, adult (HCC); Inflammatory breast cancer, right (HCC); Type 2 diabetes mellitus with other specified complication, without long-term current use of insulin (HCC); HALIMA (obstructive sleep apnea) Start: 10-22-2024 End: 10-22-2024 Telemedicine consultation with patient Lenore Dalychristine INTELLIGENCE OPERATIONS.MANAGER BUSINESS PLANNING Work Phone: [facility] Start: 10-22-2024 End: 10-22-2024 ambulatory ZAINAB FOUNTAIN Facility:[facility] Start: 10-17-2024 End: 10-18-2024 ambulatory Lenore Munoz Italo INTELLIGENCE OPERATIONS.MANAGER BUSINESS PLANNING Work Phone: [facility] Start: 10-17-2024 End: 10-18-2024 Patient encounter procedure Lenore Munoz Italo INTELLIGENCE OPERATIONS.MANAGER BUSINESS PLANNING Work Phone: [facility] Comment on above: Lab results Start: 10-17-2024 End: 10-19-2024 Refill Lenore Munoz Italo RANDHAWA.MANAGER BUSINESS PLANNING Work Phone: [facility] Comment on above: Refill Request Start: 09-12-2024 End: 09-13-2024 Refill Lenore Munoz Italo INTELLIGENCE OPERATIONS.MANAGER BUSINESS PLANNING Work Phone: [facility] Comment on above: Refill Request Start: 09-01-2024 End: 09-01-2024 ambulatory Zainab Fountain Facility:[facility] Start: 08-16-2024 End: 08-16-2024 Refill Lenore Munoz Italo INTELLIGENCE OPERATIONS.MANAGER BUSINESS PLANNING Work Phone: [facility] Comment on above: Refill Request Start: 08-07-2024 End: 08-09-2024 Refill Lenore Munoz Italo INTELLIGENCE OPERATIONS.MANAGER BUSINESS PLANNING Work Phone: [facility] Comment on above: Refill Request Start: 07-27-2024 End: 07-31-2024 ambulatory ZAINAB FOUNTAIN INTELLIGENCE OPERATIONS-MANAGER BUSINESS PLANNING Facility:[facility] Start: 07-27-2024 End: 07-31-2024 Encounter for general adult medical examination without abnormal findings ZAINABDANICA LOCKHARTSEY INTELLIGENCE OPERATIONS-MANAGER BUSINESS PLANNING Facility:[facility] Start: 07-27-2024 End: 07-31-2024 Outreach Lab ZAINAB FOUNTAIN INTELLIGENCE OPERATIONS-MANAGER BUSINESS PLANNING [facility] Start: 07-22-2024 End: 07-22-2024 ambulatory ZAINAB FOUNTAIN INTELLIGENCE OPERATIONS-MANAGER BUSINESS PLANNING Facility:[facility] Start: 07-22-2024 End: 07-22-2024 Patient encounter procedure ZAINAB FOUNTAIN INTELLIGENCE OPERATIONS-MANAGER BUSINESS PLANNING [facility] Start: 06-21-2024 End: 06-24-2024 Refill Lenore Munoz Italo INTELLIGENCE OPERATIONS.MANAGER BUSINESS PLANNING Work Phone: [facility] Comment on above: Refill Request Start: 05-24-2024 ambulatory Lenore Ramseymecca aub INTELLIGENCE OPERATIONS.MANAGER BUSINESS PLANNING Work Phone: [facility] Start: 05-24-2024 Patient encounter procedure Lenore Morelos INTELLIGENCE OPERATIONS.MANAGER BUSINESS PLANNING Work Phone: [facility] Comment on above: tomaaline Start: 05-19-2024 E-mail encounter claudia munoz caregiver [facility] Provider [facility] Start: 05-19-2024 Follow-up encounter [facility] Provider [facility] Comment on above: Follow Up - Lenore Stoner Start: 05-19-2024 End: 05-19-2024 Patient encounter procedure Lenore Morelos INTELLIGENCE OPERATIONS.MANAGER BUSINESS PLANNING Work Phone: [facility] Comment on above: Class 3 severe obesi ty with serious comorbidity in adult, unspecified BMI, unspecified obesity type (HCC) (Primary Dx); Dietary counseling and surveillance; BMI 40.0-44.9, adult (HCC); Type 2 diabetes mellitus with other specified complication, without long-term current use of insulin (HCC); HALIMA (obstructive sleep apnea) Start: 05-19-2024 End: 05-19-2024 Telemedicine consultation with patient Lenore Morelos INTELLIGENCE OPERATIONS.MANAGER BUSINESS PLANNING Work Phone: [facility] Start: 05-19-2024 End: 05-19-2024 ambulatory ZAINAB L FOUNTAIN Facility:[facility] Start: 05-17-2024 Refill Lenore Trejo aub INTELLIGENCE OPERATIONS.MANAGER BUSINESS PLANNING Work Phone: [facility] Comment on above: Refill Request Start: 05-06-2024 Refill Lenore Trejo aub INTELLIGENCE OPERATIONS.MANAGER BUSINESS PLANNING Work Phone: [facility] Comment on above: Refill Request Start: 04-23-2024 End: 04-23-2024 Patient encounter procedure Billie Lozoya MD Work Phone: Pulmonary Medicine Comment on above: HALIMA (obstructive sle ep apnea) (Primary Dx) Start: 04-23-2024 End: 04-23-2024 ambulatory ZAINAB L FOUNTAIN Facility:[facility] Start: 04-23-2024 Telephone encounter Billie hutson MD Work Phone: Pulmonary Medicine Comment on above: FYI-No Action Needed Start: 04-17-2024 Refill Lenore Trejo aub INTELLIGENCE OPERATIONS.MANAGER BUSINESS PLANNING Work Phone: [facility] Comment on above: Refill Request Start: 03-29-2024 Telephone encounter Billie hutson MD Work Phone: Pulmonary Medicine Comment on above: FYI-No Action Needed Start: 03-19-2024 Refill Lenore Trejo aub INTELLIGENCE OPERATIONS.MANAGER BUSINESS PLANNING Work Phone: [facility] Comment on above: Refill Request Start: 03-17-2024 ambulatory Lenore Trejo aub INTELLIGENCE OPERATIONS.MANAGER BUSINESS PLANNING Work Phone: [facility] Start: 03-17-2024 Patient encounter procedure Lenore Morelos INTELLIGENCE OPERATIONS.MANAGER BUSINESS PLANNING Work Phone: [facility] Comment on above: mounjaro Start: 02-09-2024 End: 02-09-2024 Patient encounter procedure Lenore Morelos INTELLIGENCE OPERATIONS.MANAGER BUSINESS PLANNING Work Phone: [facility] Comment on above: Class 3 severe obesi ty with serious comorbidity in adult, unspecified BMI, unspecified obesity type (HCC) (Primary Dx); BMI 40.0-44.9, adult ([facility]); Dietary counseling and surveillance; Type 2 diabetes mellitus with other specified complication, without long-term current use of insulin ([facility]); HALIMA (obstructive sleep apnea) Start: 01-21-2024 ambulatory Lenore Trejo aub INTELLIGENCE OPERATIONS.MANAGER BUSINESS PLANNING Work Phone: [facility] Start: 01-21-2024 E-mail encounter fro m caregiver Lenore Munoz Italo INTELLIGENCE OPERATIONS.MANAGER BUSINESS PLANNING Work Phone: [facility] Start: 01-18-2024 Refill Lenore Trejo aub INTELLIGENCE OPERATIONS.MANAGER BUSINESS PLANNING Work Phone: [facility] Comment on above: Refill Request Start: 01-15-2024 ambulatory Lenore Trejo aub INTELLIGENCE OPERATIONS.MANAGER BUSINESS PLANNING Work Phone: [facility] Comment on above: Mounjaro Start: 12-29-2023 ambulatory Billie Lozoya MD Work Phone: Pulmonary Medicine Comment on above: Sleep study results Start: 12-29-2023 E-mail encounter fro m caregiver Billie Lozoya MD Work Phone: [facility] Start: 12-23-2023 ambulatory Lenore Trejo aub INTELLIGENCE OPERATIONS.MANAGER BUSINESS PLANNING Work Phone: [facility] Comment on above: mounjaro Start: 12-12-2023 ambulatory Lenore Trejo auasuncion INTELLIGENCE OPERATIONS.MANAGER BUSINESS PLANNING Work Phone: [facility] Comment on above: Mounjaro Start: 12-12-2023 Refill Lenore Trejo auasuncion INTELLIGENCE OPERATIONS.MANAGER BUSINESS PLANNING Work Phone: [facility] Comment on above: Refill Request Start: 11-19-2023 Chart abstracting [facility] Work Phone: Neurology Start: 11-17-2023 End: 11-17-2023 Patient encounter procedure Lenore Dalychristine INTELLIGENCE OPERATIONS.MANAGER BUSINESS PLANNING Work Phone: [facility] Comment on above: Class 3 severe obesi ty with serious comorbidity in adult, unspecified BMI, unspecified obesity type (HCC) (Primary Dx); Dietary counseling and surveillance; Type 2 diabetes mellitus with other specified complication, without long-term current use of insulin (HCC); HALIMA (obstructive sleep apnea); BMI 40.0-44.9, adult (HCC) Start: 10-09-2023 End: 10-09-2023 ambulatory PROVIDER [facility] Start: 09-28-2023 End: 09-28-2023 ambulatory Beena ANDERSON Facility:[facility] Start: 09-23-2023 Refill Lenore Trejo aub INTELLIGENCE OPERATIONS.MANAGER BUSINESS PLANNING Work Phone: [facility] Comment on above: Refill Request Start: 08-27-2023 End: 08-27-2023 Patient encounter procedure Lenore Munoz Italo INTELLIGENCE OPERATIONS.MANAGER BUSINESS PLANNING Work Phone: [facility] Comment on above: Obesity, Class III, BMI >= 40 (Primary Dx); Type 2 diabetes mellitus with other specified complication, without long-term current use of insulin (HCC); HALIMA (obstructive sleep apnea); Dietary counseling and surveillance; BMI 40.0-44.9, adult (HCC) Start: 08-20-2023 ambulatory Lenore Munoz Maya xiao INTELLIGENCE OPERATIONS.MANAGER BUSINESS PLANNING Work Phone: [facility] Comment on above: no Ozempic Start: 07-28-2023 Refill Lenore Munoz Maya xiao INTELLIGENCE OPERATIONS.MANAGER BUSINESS PLANNING Work Phone: [facility] Comment on above: Refill Request Start: 07-21-2023 End: 07-22-2023 ambulatory ZAINAB LOCKHARTSEY Facility:[facility] Start: 06-09-2023 End: 06-09-2023 Patient encounter procedure Lenore Munoz Italo INTELLIGENCE OPERATIONS.MANAGER BUSINESS PLANNING Work Phone: [facility] Comment on above: Class 3 severe obesi ty with serious comorbidity in adult, unspecified BMI, unspecified obesity type (HCC) (Primary Dx); HALIMA (obstructive sleep apnea); Dietary counseling and surveillance; Type 2 diabetes mellitus with other specified complication, without long-term current use of insulin (HCC); BMI 40.0-44.9, adult (HCC) Start: 05-30-2023 End: 05-30-2023 Patient encounter procedure Billie Lozoya MD Work Phone: Pulmonary Medicine Comment on above: Obesity, Class III, BMI >= 40 (Primary Dx); HALIMA (obstructive sleep apnea) Start: 02-11-2023 ambulatory Lenore Munoz Maya xiao INTELLIGENCE OPERATIONS.MANAGER BUSINESS PLANNING Work Phone: [facility] Comment on above: labs Start: 02-11-2023 E-mail encounter fro m caregiver Lenore Munoz Italo INTELLIGENCE OPERATIONS.MANAGER BUSINESS PLANNING Work Phone: [facility] Start: 01-27-2023 Telephone encounter Lenore Ramsey deion OSBORNN.MANAGER BUSINESS PLANNING Work Phone: [facility] Comment on above: Medication Request ( Ozempic needles) Start: 01-24-2023 Telephone encounter Lenore Ramsey deion OSBORNN.MANAGER BUSINESS PLANNING Work Phone: [facility] Comment on above: Appointment Start: 11-06-2022 Documentation procedure Mammog niles Coordinator [facility] Start: 11-06-2022 Letter encounter Mammography Coordinator [place] ANCILLARY AREA NOT LISTED Start: 11-06-2022 End: 11-06-2022 Patient encounter procedure Shanique Jacinto INTELLIGENCE OPERATIONS.MANAGER BUSINESS PLANNING Work Phone: [facility] Comment on above: Inflammatory breast cancer, right (HCC) (Primary Dx); History of right mastectomy; BRCA negative; Visit for screening mammogram Start: 11-06-2022 End: 11-06-2022 Subsequent hospital visit by physician Screen Mammo [facility] Comment on above: Encounter for screen ing mammogram for breast cancer [Z12.31] Start: 10-30-2022 ambulatory Lenore Trejo dameon INTELLIGENCE OPERATIONS.MANAGER BUSINESS PLANNING Work Phone: [facility] Comment on above: Vitamin D level Start: 10-30-2022 E-mail encounter claudia m caregiver Lenore Munoz Italo OSBORNN.MANAGER BUSINESS PLANNING Work Phone: [facility] Start: 09-09-2022 End: 09-09-2022 Patient encounter procedure Rico Clifford MD Work Phone: General Surgery Comment on above: Aftercare (Primary D x) Start: 08-28-2022 End: 08-28-2022 ambulatory ZAINAB FOUNTAIN Facility:[facility] Start: 08-02-2022 End: 08-02-2022 Patient encounter status Shanique Shea INTELLIGENCE OPERATIONS.MANAGER BUSINESS PLANNING Work Phone: OB/Gynecology Start: 08-02-2022 End: 08-02-2022 Patient encounter procedure Rico Clifford MD Work Phone: General Surgery Comment on above: Calculus of gallblad leonidas with cholecystitis of other acuity without obstruction (Primary Dx); RUQ pain Encounter for gyneco logical examination (general) (routine) without abnormal findings (Primary Dx); Encounter for screening mammogram for breast cancer Start: 07-23-2022 Telephone encounter Genesis darnell MD Work Phone: [facility] Comment on above: External Referrals/r esources (/Fax PCP ref call into the program, LVM /) Start: 11-05-2021 End: 11-05-2021 Patient encounter procedure Shanique Jacinto APRN.MANAGER BUSINESS PLANNING Work Phone: [facility] Comment on above: Inflammatory breast cancer, right (HCC) (Primary Dx); History of right mastectomy; Visit for screening mammogram Procedures Date Procedure Procedure Detail Performing Clinician Start: 12-13-2024 Colonoscopy flx dx w /collj spec when pfrmd Ludy Lee INTELLIGENCE OPERATIONS.MANAGER BUSINESS PLANNING Work Phone: Start: 12-13-2024 Colonoscopy Rico hua MD Work Phone: Start: 11-06-2022 CAMELIA SCREENING W CHANCE Shea INTELLIGENCE OPERATIONS.MANAGER BUSINESS PLANNING Work Phone: Start: 11-06-2022 Mammography Shanique iverson APRN.MANAGER BUSINESS PLANNING Work Phone: Start: 11-05-2021 Mammography Shanique iverson APRN.MANAGER BUSINESS PLANNING Work Phone: Start: 10-13-2021 Cholecystectomy ZAINAB FOUNTAIN INTELLIGENCE OPERATIONS-MANAGER BUSINESS PLANNING Start: 12-13-2019 Colonoscopy Shanique iverson APRN.MANAGER BUSINESS PLANNING Work Phone: Start: 09-01-2017 Adult depression scr eening assessment Shanique Jacinto APRN.MANAGER BUSINESS PLANNING Work Phone: Plan of Treatment Date Care Activity Detail Author Start: 07-22-2034 Urine microalbumin profile DTaP,Tdap,Td Vaccine (3 - Td or Tdap) [facility] Start: 12-13-2029 Screening for malign ant neoplasm of colon [facility] Start: 11-18-2025 End: 11-18-2025 Patient encounter procedure 11/18/2025 9:00 AM EST Office Visit [facility] [address] [place] [id number] Shanique Jacinto, INTELLIGENCE OPERATIONS.MANAGER BUSINESS PLANNING [address] [place] [address] yearly exam and review results [facility] Comment on above: yearly exam and revi ew results Start: 11-11-2025 End: 11-11-2025 Patient encounter procedure 11/11/2025 8:00 AM EST Appointment [facility] [address] [place] [address] screening mammogram with CHANCE [facility] Comment on above: screening mammogram with CHANCE Start: 11-09-2025 End: 12-11-2025 DBT Breast - bilateral screening CAMELIA SCREENING W CHANCE Radiology Routine Visit for screening mammogram Expected: 11/09/2025, Expires: 12/11/2025 [facility] Work Phone: Comment on above: Expected: 11/09/2025 , Expires: 12/11/2025 Start: 11-08-2025 Screening for malign ant neoplasm of breast Mammogram Screening [facility] Start: 06-13-2025 Influenza vaccination Influenza Vacc ine (#1) [facility] Start: 06-06-2025 End: 06-06-2025 Patient encounter procedure 06/06/2025 9:30 AM EDT Office Visit [facility] [address] [place] [address] Lenore Morelos, INTELLIGENCE OPERATIONS.MANAGER BUSINESS PLANNING [address] [place] [address] 4 Month - In Person [facility] Comment on above: 4 Month - In Person Start: 02-09-2025 End: 02-09-2025 Follow-up encounter 02/09/2025 8:00 AM EDT [facility] DEPART[facility] [address] [place] [address] Lenore Morelos APRN.MANAGER BUSINESS PLANNING [address] [place] [address] 3 Month Follow Up [facility] Comment on above: 3 Month Follow Up Start: 12-21-2024 End: 12-21-2024 Patient encounter procedure General Surgery Comment on above: 12-13- colonoscopy f ollow up in office 12-13- colonoscopy f ollow up in office. Surgery updated. [facility] Start: 12-13-2024 End: 12-13-2024 Patient encounter procedure 12/13/2024 11:15 AM EST Appointment Ambulatory Surgery [address] [place], [place] [id number] Rico Clifford MD [address] [place] [address] Screen for colon cancer [Z12.11]; Family history of colon cancer in father [Z80.0] Ambulatory Surgery Comment on above: Screen for colon can cer [Z12.11]; Family history of colon cancer in father [Z80.0] Start: 12-12-2024 Colonoscopy COLONOSCOPY [facility] Start: 12-12-2024 COLORECTAL CANCER SCREENING COLORECTAL CANCER SCREENING [facility] Start: 12-12-2024 Screening for malign ant neoplasm of colon [facility] Start: 11-11-2024 End: 11-11-2024 Patient encounter procedure 11/11/2024 1:30 PM EST Office Visit [facility] [address] [place] [address] Shanique Jacinto APRN.MANAGER BUSINESS PLANNING [address] [place] [address] Screening mammogram with chance [facility] Comment on above: Screening mammogram with chance Start: 11-08-2024 End: 11-08-2024 Patient encounter procedure [facility] Comment on above: Screening mammogram with chance Start: 11-07-2024 Screening for malign ant neoplasm of breast Mammogram Screening [facility] Start: 10-22-2024 End: 10-22-2024 Follow-up encounter 10/22/2024 9:30 AM EST [facility] DEPARTMENT [address] [facility] [place] [address] Lenore Morelos, INTELLIGENCE OPERATIONS.MANAGER BUSINESS PLANNING [address] [facility] [place] [id number] Follow Up [facility] Comment on above: Follow Up Start: 06-13-2024 Covid-19 Vaccine ( season) Covid-19 Vaccine ( season) [facility] Start: 06-13-2024 Covid-19 Vaccine ( season) Covid-19 Vaccine ( season) [facility] Start: 06-13-2024 Influenza vaccination Influenza Vacc ine (#1) [facility] Start: 05-19-2024 End: 05-19-2024 Patient encounter procedure 05/19/2024 8:30 AM EDT [facility] [address] [facility] [facility] [place] [id number] Lenore Morelos, INTELLIGENCE OPERATIONS.MANAGER BUSINESS PLANNING [address] [facility] [place] [id number] 12 Wk F/U [facility] Comment on above: 12 Wk F/U Start: 05-07-2024 End: 05-07-2024 Patient encounter procedure 05/07/2024 8:30 AM EDT [facility] [address] [facility] [facility] [place] [id number] Lenore Morelos, INTELLIGENCE OPERATIONS.MANAGER BUSINESS PLANNING [address] [facility] [place] [id number] 12 Wk F/U [facility] Comment on above: 12 Wk F/U Start: 04-23-2024 End: 04-23-2024 Patient encounter procedure Pulmonary Medicine Comment on above: ?sleep//3 month foll ow up ??sleep,asthma//3 mo nth follow up. Dwnld compliance in chart. Start: 02-11-2024 Hepatitis B surface antibody level LDL CHOLESTEROL [facility] Start: 01-22-2024 HPV TESTING HPV TESTING [facility] Start: 01-22-2024 PAP TESTING PAP TESTING [facility] Start: 01-22-2024 Screening for malign ant neoplasm of cervix [facility] Start: 11-07-2023 End: 12-06-2023 CAMELIA SCREENING W CHANCE CAMELIA SCREENING W CHANCE Radiology Routine Visit for screening mammogram Expected: 11/07/2023, Expires: 12/06/2023 [facility] Work Phone: Comment on above: Expected: 11/07/2023 , Expires: 12/06/2023 Start: 11-06-2023 Mammography [facility] Start: 11-06-2023 Screening for malign ant neoplasm of breast Mammogram Screening [facility] Start: 10-27-2023 Urine microalbumin profile [facility] Start: 10-13-2023 Behavioral Health Screening Behavioral Health Screening [facility] Start: 10-13-2023 Depression Assessment Depression Ass essment [facility] Start: 08-13-2023 Hemoglobin A1c measurement HbA1C [facility] Start: 08-13-2023 Hemoglobin A1c/Hemoglobin.total in Blood HBA1C [facility] Start: 06-13-2023 Covid-19 Vaccine ( season) Covid-19 Vaccine () [facility] Start: 06-13-2023 Influenza vaccination C [facility] Start: 01-15-2023 Hemoglobin A1c/Hemoglobin.total in Blood HBA1C [facility] Start: 2022 COLOGUARD (FIT-DNA) COLOGUARD (FIT-D NA) [facility] Start: [address] COLONOGRAPHY [facility] Start: 2022 FECAL OCCULT BLOOD FECAL OCCULT BLOO D [facility] Start: 2022 Screening for malign ant neoplasm of colon [facility] Start: 2022 SIGMOIDOSCOPY SIGMOIDOSCOPY [facility] Start: 11-06-2022 End: 12-05-2022 CAMELIA SCREENING W CHANCE CAMELIA SCREENING W [facility] Radiology Routine Visit for screening mammogram Expected: 11/06/2022, Expires: 12/05/2022 [facility] Work Phone: Comment on above: Expected: 11/06/2022 , Expires: 12/05/2022 Start: 11-05-2022 Mammography MAMMOGRAM [facility] Start: 10-13-2022 [facility]PRESSION ASSESSMENT [facility] Start: 06-13-2022 Influenza vaccination INFLUENZA (#1) [facility] Start: 10-26-2021 COVID-19 VACCINE (4 - Booster for Moderna series) COVID-19 VACCINE (4 - Booster for Moderna series) [facility] Start: 10-13-2021 DEPRESSION ASSESSMENT [facility] Start: 09-01-2018 Adult depression screening assessment DEPRESSION SCREENING [facility] Start: 1996 Hepatitis B Vaccine (1 of 3 - 19+ 3-dose series) Hepatitis B Vaccine (1 of 3 - 19+ 3-dose series) [facility] Start: 1996 Pneumococcal vaccination Pneumococcal Vaccine (1 of 2 - PCV) [facility] Start: 1995 ANNUAL PCP TEAM PRINTING TABLE HAND CAITLIN DISEASE VISIT ANNUAL PCP TEAM CHRONIC DISEASE VISIT [facility] Start: 1995 Anxiety Screening Anxiety Screening [facility] Start: 1995 Depression Screening Depression Scre ening [facility] Start: 1995 Hepatitis B surface antibody level LDL CHOLESTEROL [facility] Start: 1995 HEPATITIS C SCREENING HEPATITIS C [facility] Start: 1995 Hepatitis C screening Hepatitis C [facility] Start: 1995 HIV SCREENING HIV SCREENING [facility] Start: 1995 HIV screening HIV Screening [facility] Start: 1987 3 comp foot exam completed DIABETIC FOOT EXAM [facility] Start: 1987 Diabetic foot examination Diabetic Foot Exam [facility] Start: 1987 Glaucoma screening Dilated Retinal E xam [facility] Start: 1987 Hepatitis B screening URINE ALBUMIN:CREATININE RATIO [facility] Start: 1987 Hepatitis C antibody , confirmatory test DILATED RETINAL EXAM [facility] Start: 1983 PNEUMOCOCCAL (1 - PCV) PNEUMOCOCCAL (1 - PCV) [facility] Start: 1983 Pneumococcal vaccination [facility] Start: 1977 HEPATITIS B (1 of 3 - 3-dose series) HEPATITIS B (1 of 3 - 3-dose series) [facility] Start: 1977 Hepatitis B Vaccine (1 of 3 - 3-dose series) Hepatitis B Vaccine (1 of 3 - 3-dose series) [facility] End: 11-08-2024 DBT Breast - bilateral screening [facility] Work Phone: Comment on above: 1 Occurrences starti ng 11/08/2024 until 11/08/2024 End: 09-01-2023 CAMELIA SCREENING W CHANCE CAMELIA SCREENING W [facility] Radiology Routine Encounter for screening mammogram for breast cancer 1 Occurrences starting 08/02/2022 until 09/01/2023 [facility] Work Phone: Comment on above: 1 Occurrences starti ng 08/02/2022 until 09/01/2023 End: 11-08-2025 Screening colonoscopy COLONOSCOPY SCREENING Endoscopy Routine Screen for colon cancer Family history of colon cancer in father 1 Occurrences starting 11/08/2024 until 11/08/2025 [facility] Work Phone: Comment on above: 1 Occurrences starti ng 11/08/2024 until 11/08/2025 Tissue Pathology bio psy report [facility] Work Phone: Comment on above: Release Upon Orderin g for 1 Occurrences starting 12/13/2024, 1 completed [facility] Immunizations Immunization Date Immunization Notes Care Provider Erica finn 07-22-2024 influenza, injectabl e, quadrivalent, contains preservative; Translations: [Fluarix PF Prefilled Syringe ] ZAINAB STORY [facility] 07-22-2024 tetanus toxoid, reduced diphtheria toxoid, and acellular pertussis vaccine, adsorbed; Translations: [Boostrix (Tdap)] ZAINAB FOUNTAIN APRN-MANAGER [employer]ING [facility] 07-22-2024 influenza virus vaccine, unspecified formulation Lenore Hasenstaub [employer] Work Phone: [facility] 07-21-2023 influenza, injectabl e, quadrivalent, preservative free Lenore Hasenstaub [employer] Work Phone: [facility] 07-21-2023 influenza, injectabl e, quadrivalent, contains preservative; Translations: [Fluarix PF Quadrivalent ] ZAINAB FOUNTAIN APRN-MANAGER [employer] [facility] 07-21-2023 influenza virus vaccine, unspecified formulation Lenore Hasenstaub [employer]GER [employer] Work Phone: [facility] 07-17-2022 influenza, injectabl e, quadrivalent, preservative free Lenore Hasenstaub [employer]GER [employer] Work Phone: [facility] 07-17-2022 influenza virus vaccine, unspecified formulation Lenore Hasenstaub [employer]GER [employer] Work Phone: [facility] 08-22-2021 influenza, injectabl e, quadrivalent, preservative free Lenore Hasenstaub [employer] Work Phone: [facility] 07-06-2020 influenza, injectabl e, quadrivalent, preservative free Lenore Hasenstaub [employer] Work Phone: [facility] 07-26-2019 influenza virus vaccine, unspecified formulation Lenore Hasenstaub [employer]GER [employer] Work Phone: [facility] 07-22-2019 influenza, injectabl e, quadrivalent, preservative free Lenore Hasenstaub [employer] Work Phone: [facility] 07-14-2018 Influenza, injectabl e, Madin Anthony Canine Kidney, preservative free, quadrivalent Lenore Hasenstaub [employer] Work Phone: [facility] 06-30-2017 influenza, injectabl e, quadrivalent, preservative free Lenore Hasenstaub [employer] Work Phone: [facility] 06-25-2017 influenza, seasonal, injectable Shanique Jacinto [employer].MA[employer]GER [employer] Work Phone: [facility] 06-27-2016 influenza, injectabl e, quadrivalent, preservative free Lenore Hasenstaub [employer] Work Phone: [facility] 07-26-2015 influenza, injectabl e, quadrivalent, preservative free Lenore Hasenstaub [employer]GER [employer] Work Phone: [facility] 07-13-2014 influenza virus vaccine, unspecified formulation Shanique Jacinto [employer]NAGER [employer] Work Phone: [facility] 07-13-2014 influenza, seasonal, injectable, preservative free Lenore Hasenstaub [employer]GER [employer] Work Phone: [facility] 10-27-2013 tetanus toxoid, reduced diphtheria toxoid, and acellular pertussis vaccine, adsorbed Shaniqeu Jacinto [employer]GER [employer] Work Phone: [facility] 09-22-2013 influenza nasal, unspecified formulation Lenore Hasenstaub [employer]GER [employer] Work Phone: [facility] 09-22-2013 influenza virus vaccine, unspecified formulation Shanique Jacinto [employer]GER [employer] Work Phone: [facility] 08-12-2013 influenza, seasonal, injectable, preservative free Lenore Hasenstaub [employer]GER [employer] Work Phone: [facility] 07-21-2012 influenza, seasonal, injectable, preservative free Lenore Hasenstaub [employer].[facility] Work Phone: [facility] Payers Date Payer Category Payer Private Health Insurance [id number] 2023 Self-pay 2016 [facility] PPO [id number] 2016 Unknown [employer] PPO [id number] 2016-Present [phone] [address] [place] [address] PPO [id number] 2016 Unknown [employer] PPO [id number] 2016-Present [phone] [address] [place] [address] PPO [id number] 2016 Unknown [id number] 1977 Unknown [id number] 1977 Unknown [id number] 1977 Unknown [id number] 1977 Unknown [id number] 1977 Unknown [id number] Unknown [id number] Unknown [id number] Social History Date Type Detail Facility Start: 05-24-2015 End: 11-08-2024 Tobacco smoking status NHIS Ex-smoker [facility] Work Phone: Start: 10-13-1995 End: 02-20-2007 History of tobacco use Current smoker [facility] Work Phone: Start: 10-13-1995 End: 02-20-2007 History of tobacco use Cigarette Smoker [facility] Work Phone: Start: 05-24-2015 End: 05-30-2023 Cigarettes smoked current (pack per day) - Reported 0.25 [facility] Start: 05-24-2015 End: 11-08-2024 Tobacco use and exposure Smokeless tobacco non-user [facility] Work Phone: Start: 11-05-2021 End: 02-09-2025 Alcohol intake Current drinker of alcohol (finding) [facility] Start: 08-21-2017 History SDOH Alcohol Comment occassional, social [facility] Start: 1975 Sex Assigned At Female [facility] Start: 10-06-2021 End: 11-05-2021 Exposure to SARS-CoV-2 (event) Yes [facility] Start: 07-23-2022 End: 09-09-2022 Exposure to SARS-CoV-2 (event) Not sure [facility] Start: 05-30-2023 End: 02-09-2025 Tobacco use panel [facility] National Score (1-10 0), lower number is lower risk 71 [facility] Start: 03-09-2019 Gender identity Identifies as female gender (finding) [facility] Start: 03-09-2019 Sexual orientation Heterosexual (finding) [facility] Start: 07-21-2023 Tobacco smoking status Never smoked tobacco (finding) [facility] Sex Assigned At [facility] History of tobacco use Passive smoker [facility] Start: 11-08-2024 Alcohol Comment occasional [facility] Start: 03-07-2011 Sex Female (finding) [facility] Medical Equipment Procedure Code Equipment Code Equipment Origin al Text Equipment Identifier Dates 1 Each as directed. Start: 01-27-2023 End: 08-27-2023 Comment on above: 1 Each as directed. See Instructions , OneTouch Verio test strips Use as instructed, # 100 EA, 3 Refill(s), [id number], 166, cm, 07/21/23 7:42:00 EDT, Height, 104.8, kg, 07/21/23 7:42:00 EDT, Dosing Weight Start: 07-21-2023 See Instructions , OneTouch Delica Plus 33G lancets Use one daily., # 100 EA, 3 Refill(s), [id number], 166, cm, 07/21/23 7:42:00 EDT, Height, 104.8, kg, 07/21/23 7:42:00 EDT, Dosing Weight Start: 07-21-2023 ONETOUCH VERIO TEST STRIP, USE INSTRUCTED Start: 07-21-2023 See Instructions , OneTouch Verio test strips Use as instructed, # 100 EA, 3 Refill(s), Pharmacy: [facility] #[id number], 166, cm, 07/21/23 7:42:00 EDT, Height, 104.8, kg, 07/21/23 7:42:00 EDT, Dosing Weight Start: 07-21-2023 See Instructions , OneTouch Delica Plus 33G lancets Use one daily., # 100 EA, 3 Refill(s), Pharmacy: [facility] #[id number], 166, cm, 07/21/23 7:42:00 EDT, Height, 104.8, kg, 07/21/23 7:42:00 EDT, Dosing Weight Start: 07-21-2023 ONETOUCH VERIO TEST STRIP, USE INSTRUCTED Start: 07-21-2023 See Instructions , OneTouch Verio test strips Use as instructed, # 100 EA, 3 Refill(s), [id number], 166, cm, 07/21/23 7:42:00 EDT, Height, 104.8, kg, 07/21/23 7:42:00 EDT, Dosing Weight Start: 07-21-2023 See Instructions , OneTouch Delica Plus 33G lancets Use one daily., # 100 EA, 3 Refill(s), [id number], 166, cm, 07/21/23 7:42:00 EDT, Height, 104.8, kg, 07/21/23 7:42:00 EDT, Dosing Weight Start: 07-21-2023 ONETOUCH VERIO TEST STRIP, USE INSTRUCTED Start: 07-21-2023 Functional Status Date Assessment Result Facility 11-04-2014 Are you deaf, or do you have serious difficulty hearing No 11/04/2014 2:22 PM EST Herminia Ordoñez MA No [facility] 11-04-2014 Are you blind, or do you have serious difficulty seeing, even when wearing glasses No 11/04/2014 2:22 PM EST Herminia Ordoñez MA No [facility] 11-04-2014 Do you have serious difficulty walking or climbing stairs No 11/04/2014 2:22 PM EST Herminia Ordoñez MA [facility] 11-04-2014 Do you have difficul ty dressing or bathing No 11/04/2014 2:22 PM EST Herminia Ordoñez MA No [facility] 11-04-2014 Because of a physica l, mental, or emotional condition, do you have difficulty doing errands alone such as visiting a physician's office or shopping No 11/04/2014 2:22 PM EST Herminia Ordoñez MA [facility] Mental Status Date Assessment Result Facility 11-04-2014 Because of a physica l, mental, or emotional condition, do you have serious difficulty concentrating, remembering, or making decisions No 11/04/2014 2:22 PM EST Herminia Ordoñez MA [facility] Clinical Notes 11-22-2016 to 05-09-2025 Telephone Encounter - Dara Muir LPN - 05/09/2025 1:32 PM EDTTelephone Encounter - Dara Muir LPN - 05/09/2025 1:32 PM EDTPatient InstructionsPeRico terry MD - 12/13/2024 8:00 AM EST Note Date & Type Note Facility 05-09-2025 Telephone encounter Note Patient requesting the following refill Refill(s) Requested: Requested Prescriptions Pending Prescriptions Disp Refills topiramate (TOPAMAX) 25 mg tablet [Pharmacy Med Name: TOPIRAMATE 25 MG TABLET] 90 tablet 0 Sig: TAKE 1 TABLET BY MOUTH EVERYDAY AT BEDTIME ALLERGIES Allergen Reactions Seasonal Allergies Cough (home) [phone] (work) [phone] (cell) Last Office Visit Date: 02/09/2024 Last Distance Health Visit: 02/09/2025 Future Appointment: 06/06/2025 The patients preferred pharmacy has been captured for this encounter? yes Request is for script(s) to be escript to pharmacy. Dara Muir LPN [facility] Work Phone: 05-09-2025 Miscellaneous Notes Patient requesting the following refill Refill(s) Requested: Requested Prescriptions Pending Prescriptions Disp Refills topiramate (TOPAMAX) 25 mg tablet [Pharmacy Med Name: TOPIRAMATE 25 MG TABLET] 90 tablet 0 Sig: TAKE 1 TABLET BY MOUTH EVERYDAY AT BEDTIME ALLERGIES Allergen Reactions Seasonal Allergies Cough (home) [phone] (work) [phone] (cell) Last Office Visit Date: 02/09/2024 Last Distance Health Visit: 02/09/2025 Future Appointment: 06/06/2025 The patients preferred pharmacy has been captured for this encounter? yes Request is for script(s) to be escript to pharmacy. Dara Muir LPN documented in this encounter [facility] 02-09-2025 Instructions Lenore Morelos APRN.[facility] - 02/09/2025 8:18 AM EDT Images from the original note were not included. Dear Ms. Allan: It was a pleasure to care for you today: Here are today's highlights: Nutrition: Re start food journal Breakfast have fruit Lunch 11:30 Snack 3 pm Dinner 6 Increase protein 60-80 lean Right after dinner, sugar free jello, bowl berries or fruit Activity: Continue cardio Mix up routine Medications: Continue mounjaro 15 mg weekly injection TIRZEPATIDE (MOUNJARO) Tirzepatide (Mounjaro) is a new combination drug (mimics 2 gut hormones, GLP1 and GIP) which has demonstrated superior weight loss >20% body wt loss after 72 week randomized controlled study. It's only approved for diabetes currently, but likely will have approval for weight/obesity next year. Below is more information on it as we discussed. Tirzepatide delays gastric emptying and has the potential to alter absorption of oral medications. This is important in patients taking narrow therapeutic index drugs or drugs that need a minimum blood level for efficacy. If you are taking oral contraceptives switch to a non-oral contraceptive method or add a barrier contraceptive method for 4 weeks after initiation of tirzepatide and for 4 weeks after each dose escalation. Video Instructions for Injecting Mounjaro: https://www.[employer] ([employer]ube.com/watch?v= nxnhBdyTSZ0 Link to Size Stamper Website Open Energi Medication Guide: https://pi.[employer].IndustryTrader.com/us/mounjaro -us-mg.pdf?s=mg Written pen instructions: https://uspl.[employer].com/mounjaro/ mounjaro.html#ug0 Tirzepatide: Patient drug information What is Mounjaro? Mounjaro is an injectable prescription medicine that is used along with diet and exercise to improve blood sugar (glucose) in adults with type 2 diabetes mellitus. It is not known if Mounjaro can be used in people who have had inflammation of the pancreas (pancreatitis). Mounjaro is not for use in people with type 1 diabetes. It is not known if Mounjaro is safe and effective for use in children under 18 years of age. It works in multiple ways. It helps: - THE BODY RELEASE INSULIN WHEN BLOOD SUGAR IS HIGH - THE BODY REMOVE EXCESS SUGAR FROM THE BLOOD - STOP THE LIVER FROM MAKING AND RELEASING TOO MUCH SUGAR - REDUCE HOW MUCH FOOD IS EATEN - SLOW DOWN HOW QUICKLY FOOD LEAVES THE STOMACH. THIS LESSENS OVER TIME. You can learn about possible side effects of Mounjaro here. Select Safety Information Changes in vision. Tell your healthcare provider if you have changes in vision during treatment with Mounjaro PURPOSE AND SAFETY SUMMARY WITH WARNINGS Important Facts About Mounjaro ([id number]). It is also known as tirzepatide. Mounjaro is an injectable prescription medicine for adults with type 2 diabetes used along with diet and exercise to improve blood sugar (glucose). It is not known if Mounjaro can be used in people who have had inflammation of the pancreas (pancreatitis). Mounjaro is not for use in people with type 1 diabetes. It is not known if Mounjaro is safe and effective for use in children under 18 years of age. Warnings Mounjaro may cause tumors in the thyroid, including thyroid cancer. Watch for possible symptoms, such as a lump or swelling in the neck, hoarseness, trouble swallowing, or shortness of breath. If you have a symptom, tell your healthcare provider. Do not use Mounjaro if you or any of your family have ever had a type of thyroid cancer called medullary thyroid carcinoma (MTC). Do not use Mounjaro if you have Multiple Endocrine Neoplasia syndrome type 2 (MEN 2). Do not use Mounjaro if you are allergic to tirzepatide or any of the ingredients in Mounjaro. Mounjaro may cause serious side effects, including: Inflammation of the pancreas (pancreatitis). Stop using Mounjaro and call your healthcare provider right away if you have severe pain in your stomach area (abdomen) that will not go away, with or without vomiting. You may feel the pain from your abdomen to your back. Low blood sugar (hypoglycemia). Your risk for getting low blood sugar may be higher if you use Mounjaro with another medicine that can cause low blood sugar, such as a sulfonylurea or insulin. Signs and symptoms of low blood sugar may include dizziness or light-headedness, sweating, confusion or drowsiness, headache, blurred vision, slurred speech, shakiness, fast heartbeat, anxiety, irritability, or mood changes, hunger, weakness and feeling jittery. Serious allergic reactions. Stop using Mounjaro and get medical help right away if you have any symptoms of a serious allergic reaction, including swelling of your face, lips, tongue or throat, problems breathing or swallowing, severe rash or itching, fainting or feeling dizzy, and very rapid heartbeat. Kidney problems (kidney failure). In people who have kidney problems, diarrhea, nausea, and vomiting may cause a loss of fluids (dehydration), which may cause kidney problems to get worse. It is important for you to drink fluids to help reduce your chance of dehydration. Severe stomach problems. Stomach problems, sometimes severe, have been reported in people who use Mounjaro. Tell your healthcare provider if you have stomach problems that are severe or will not go away. Changes in vision. Tell your healthcare provider if you have changes in vision during treatment with Mounjaro. Gallbladder problems. Gallbladder problems have happened in some people who use Mounjaro. Tell your healthcare provider right away if you get symptoms of gallbladder problems, which may include pain in your upper stomach (abdomen), fever, yellowing of skin or eyes (jaundice), and mike-colored stools. Common side effects The most common side effects of Mounjaro include nausea, diarrhea, decreased appetite, vomiting, constipation, indigestion, and stomach (abdominal) pain. These are not all the possible side effects of Mounjaro. Talk to your healthcare provider about any side effect that bothers you or doesn't go away. Tell your healthcare provider if you have any side effects. You can report side effects at 2-600-CSX-3736 or www.fda.gov/medwatch. Before using Your healthcare provider should show you how to use Mounjaro before you use it for the first time. Before you use Mounjaro, talk to your healthcare provider about low blood sugar and how to manage it. Review these questions with your healthcare provider: Do you have other medical conditions, including problems with your pancreas or kidneys, or severe problems with your stomach, such as slowed emptying of your stomach (gastroparesis) or problems digesting food? Do you take other diabetes medicines, such as insulin or sulfonylureas? Do you have a history of diabetic retinopathy? Are you or plan to become or or plan to breastfeed? It is not known if Mounjaro will harm your unborn baby. Do you take control pills by mouth? These may not work as well while using Mounjaro. Your healthcare provider may recommend another type of control when you start Mounjaro or when you increase your dose. Do you take any other prescription medicines or [id number] drugs, vitamins, or herbal supplements? How to take Read the Instructions for Use that come with Mounjaro. Use Mounjaro exactly as your healthcare provider says. Mounjaro is injected under the skin (subcutaneously) of your stomach (abdomen), thigh, or upper arm. Use Mounjaro 1 time each week, at any time of the day. Do not mix insulin and Mounjaro together in the same injection. If you take too much Mounjaro, call your healthcare provider or seek medical advice promptly. Learn more For more information, call 2-145-UtzzxDr ( ) or go to www.[employer] Calendars. This information does not take the place of talking with your healthcare provider. Be sure to talk to your healthcare provider about Mounjaro and how to take it. Your healthcare provider is the best person to help you decide if Mounjaro is right for you. Mounjaro and its delivery device base are trademarks owned or licensed by [facility], its subsidiaries, or affiliates. NIGEL MOSER [employer] FEBRUARY2022 Access ethority Online for additional drug information, tools, and databases. Copyright 0328-9746 [employer]. All rights reserved. Contributor Disclosures (For additional information see Tirasterpatide: Drug information) You must carefully read the Consumer Information Use and Disclaimer below in order to understand and correctly use this information. Brand Names: [place] Mounjaro Warning This drug has been shown to cause thyroid cancer in some animals. It is not known if this happens in humans. If thyroid cancer happens, it may be deadly if not found and treated early. Call your doctor right away if you have a neck mass, trouble breathing, trouble swallowing, or have hoarseness that will not go away. Do not use this drug if you have a health problem called Multiple Endocrine Neoplasia syndrome type 2 (MEN 2), or if you or a family member have had thyroid cancer. Have your blood work checked and thyroid ultrasounds as you have been told by your doctor. What is this drug used for? It is used to lower blood sugar in patients with high blood sugar (diabetes). What do I need to tell my doctor BEFORE I take this drug? If you are allergic to this drug; any part of this drug; or any other drugs, foods, or substances. Tell your doctor about the allergy and what signs you had. If you have type 1 diabetes. Do not use this drug to treat type 1 diabetes. If you have ever had pancreatitis. If you have stomach or bowel problems. This is not a list of all drugs or health problems that interact with this drug. Tell your doctor and pharmacist about all of your drugs (prescription or OTC, natural products, vitamins) and health problems. You must check to make sure that it is safe for you to take this drug with all of your drugs and health problems. Do not start, stop, or change the dose of any drug without checking with your doctor. What are some things I need to know or do while I take this drug? Tell all of your health care providers that you take this drug. This includes your doctors, nurses, pharmacists, and dentists. Wear disease medical alert ID (identification). Follow the diet and workout plan that your doctor told you about. Check your blood sugar as you have been told by your doctor. Do not drive if your blood sugar has been low. There is a greater chance of you having a crash. control pills may not work as well to prevent . If you take control pills, you may need to switch to another type of hormone-based control like a vaginal ring if your doctor tells you to. If another type of hormone-based control is not an option, use some other kind of control also, like a condom. Do this for 4 weeks after starting this drug and for 4 weeks each time the dose is raised. This drug may prevent other drugs taken by mouth from getting into the body. If you take other drugs by mouth, you may need to take them at some other time than this drug. Talk with your doctor. It may be harder to control blood sugar during times of stress such as fever, infection, injury, or surgery. A change in physical activity, exercise, or diet may also affect blood sugar. Talk with your doctor before you drink alcohol. Do not share with another person even if the needle has been changed. Sharing your tray or pen may pass infections from one person to another. This includes infections you may not know you have. If you cannot drink liquids by mouth or if you have upset stomach, throwing up, or diarrhea that does not go away; you need to avoid getting dehydrated. Contact your doctor to find out what to do. Dehydration may lead to new or worse kidney problems. A severe and sometimes deadly pancreas problem (pancreatitis) has happened with other drugs like this one. Tell your doctor if you are , plan on getting , or are breast-feeding. You will need to talk about the benefits and risks to you and the baby. What are some side effects that I need to call my doctor about right away? WARNING/CAUTION: Even though it may be rare, some people may have very bad and sometimes deadly side effects when taking a drug. Tell your doctor or get medical help right away if you have any of the following signs or symptoms that may be related to a very bad side effect: Signs of an allergic reaction, like rash; hives; itching; red, swollen, blistered, or peeling skin with or without fever; wheezing; tightness in the chest or throat; trouble breathing, swallowing, or talking; unusual hoarseness; or swelling of the mouth, face, lips, tongue, or throat. Signs of kidney problems like unable to pass urine, change in how much urine is passed, blood in the urine, or a big weight gain. Signs of gallbladder problems like pain in the upper right belly area, right shoulder area, or between the shoulder blades; yellow skin or eyes; fever with chills; bloating; or very upset stomach or throwing up. Signs of a pancreas problem (pancreatitis) like very bad stomach pain, very bad back pain, or very bad upset stomach or throwing up. Dizziness or passing out. A fast heartbeat. Change in eyesight. Low blood sugar can happen. The chance may be raised when this drug is used with other drugs for diabetes. Signs may be dizziness, headache, feeling sleepy or weak, shaking, fast heartbeat, confusion, hunger, or sweating. Call your doctor right away if you have any of these signs. Follow what you have been told to do for low blood sugar. This may include taking glucose tablets, liquid glucose, or some fruit juices. What are some other side effects of this drug? All drugs may cause side effects. However, many people have no side effects or only have minor side effects. Call your doctor or get medical help if any of these side effects or any other side effects bother you or do not go away: Constipation, diarrhea, stomach pain, upset stomach, throwing up, or feeling less hungry. Heartburn. These are not all of the side effects that may occur. If you have questions about side effects, call your doctor. Call your doctor for medical advice about side effects. You may report side effects to your national health agency. How is this drug best taken? Use this drug as ordered by your doctor. Read all information given to you. Follow all instructions closely. It is given as a shot into the fatty part of the skin on the top of the thigh, belly area, or upper arm. If you will be giving yourself the shot, your doctor or nurse will teach you how to give the shot. Keep taking this drug as you have been told by your doctor or other health care provider, even if you feel well. Take the same day each week. Move site where you give the shot each time. Take with or without food. Wash your hands before and after use. Do not use if the solution is leaking or has particles. This drug is colorless to a faint yellow. Do not use if the solution changes color. If you are also using insulin, you may inject this drug and the insulin in the same area of the body but not right next to each other. Do not mix this drug in the same syringe with insulin. Do not move this drug from the pen to a syringe. Each pen is for one use only. Throw away any part of the used pen after the dose is given. Throw away needles in a needle/sharp disposal box. Do not reuse needles or other items. When the box is full, follow all local rules for getting rid of it. Talk with a doctor or pharmacist if you have any questions. What do I do if I miss a dose? If it is within 4 days after the missed dose, take the missed dose and go back to your normal day. If it has been more than 4 days since the missed dose, skip the missed dose and go back to your normal day. Do not take 2 doses at the same time or extra doses. How do I store and/or throw out this drug? Store in a refrigerator. Do not freeze. Do not use if it has been frozen. If needed, each pen may be stored at room temperature for up to 21 days. If you store at room temperature, throw away any part not used after 21 days. Protect from heat. Store in the original container to protect from light. Keep all drugs in a safe place. Keep all drugs out of the reach of children and pets. Throw away unused or drugs. Do not flush down a toilet or pour down a drain unless you are told to do so. Check with your pharmacist if you have questions about the best way to throw out drugs. There may be drug take-back programs in your area. General drug facts If your symptoms or health problems do not get better or if they become worse, call your doctor. Do not share your drugs with others and do not take anyone else's drugs. Some drugs may have another patient information leaflet. If you have any questions about this drug, please talk with your doctor, nurse, pharmacist, or other health care provider. If you think there has been an overdose, call your poison control center or get medical care right away. Be ready to tell or show what was taken, how much, and when it happened. Last Reviewed [id number] Consumer Information Use and Disclaimer This generalized information is a limited summary of diagnosis, treatment, and/or medication information. It is not meant to be comprehensive and should be used as a tool to help the user understand and/or assess potential diagnostic and treatment options. It does NOT include all information about conditions, treatments, medications, side effects, or risks that may apply to a specific patient. It is not intended to be medical advice or a substitute for the medical advice, diagnosis, or treatment of a health care provider based on the health care provider's examination and assessment of a patient's specific and unique circumstances. Patients must speak with a health care provider for complete information about their health, medical questions, and treatment options, including any risks or benefits regarding use of medications. This information does not endorse any treatments or medications as safe, effective, or approved for treating a specific patient. [employer] and its affiliates disclaim any warranty or liability relating to this information or the use thereof. The use of this information is governed by the Terms of Use, available at https://www.Mail'Inside.com/en /know/eyjpawgj-uekvocjznvjza-gej ms. Education included discussing thyroid C-cell tumor risk including Medullary Thyroid Carcinoma (MTC).Though studies have shown increased risk of medullary cell cancers only in rats. Patient denies family history of MTC and Multiple Endocrine Neoplasia Syndrome type 2 (MEN 2). I discussed that this medication is associated with acute pancreatitis, including fatal and non-fatal hemorrhagic or necrotizing pancreatitis. Pt does not have a hx of pancreatitis. Educated patient to monitor for signs such as persistent severe abdominal pain, sometimes radiating to the back, with or without vomiting. If this occurs, stop medication immediately and go to ER. The most common adverse reactions include nausea, vomiting, diarrhea, constipation and injection site erythema. These may dissipate over time. Helpful tip GLP-1 RA increases beta cell proliferation. Topiramate (toe pyre a mate) - Please start topiramate as discussed. -- You can take it at night at first (because of potential sleepiness side effects), but earlier around dinner after you have started the medication for a few days. You also may be able to take it in the morning if easier. --- Please see the handout to review the potential side effects and to explain this further -Also discussed that when on topiramate , I would recommend using 2 different kind if control methods, Due to several anomaly( if female in reproductive age group) --no while on this medications --pt Agrees and verbalizes understanding. What are the common names? Topamax Why is this medication prescribed? Topiramate is an anti-epileptic medications which has been approved by the FDA for patients 10 years of age or older for treatment of seizures. However, topiramate also has other uses such as the treatment of migraines. It also causes decrease in appetite and weight loss. The mechanism of weight loss is thought to be through inhibition of mitochondrial enzymes involved in energy expenditure and metabolism. Topiramate may work by helping you feel less hungry, less driven to eat, more satisfied with less food. However while phentermine and topiramate in combination are approved by FDA for long-term treatment of obesity, topiramate as stand alone pharmacotherapy has not been approved for this purpose. Has been used in treatment of obesity as an off label, as discussed during your visit. What special precautions should I follow? --Recommended appropriate and consistent control method in women to prevent conception while taking topiramate.(recommended at least 2 methods of contraception as at times it can decrease the effectiveness of oral control pills) --(women in child bearing age ) I strongly recommend discontinue the use of medication prior to conception as the medication may be linked to anomalies and not safe to utilize during . Before having topiramate prescribed, tell your doctor and pharmacist: If you have allergies to any component of topiramate If you are , plan to become , are breast-feeding, or if you become while taking topiramate What are the warnings and precautions for this medication? Immediately discontinue the medicine and seek medical help if you have severe cognitive/neuropsychiatric adverse symptoms or eye symptoms. Cognitive/neuropsychiatric adverse events: symptoms may include confusion, psychomotor slowing, difficulty with concentration/attention, difficulty with memory, speech or language problems, particularily word-finding difficulties, somnolence or fatigue Acute myopia and secondary angle closure glaucoma, usually within 1 month of starting treatment: symptoms may include blurred vision, redness and/or pain in the eye Oligohydrosis (decrease sweating) and hyperthermia (elevation in body temperature) Increase in suicidal behavior or ideation Metabolic acidosis, non-gap hyperchloremic (decreased serum bicarbonate below normal levels) resulting in hyperventilation or fatigue Kidney stones Paresthesias (numbness or tingling in hands or feet) Ataxia Dizziness Increase in urination frequency Drug interactions. Use of monamine oxidase inhibitors (MAOI s), valproic acid, Caution use with dehydration or diarrheal illness, hepatic or renal impairment In case of emergency/overdose In case of overdose, call your local poison control center at or call local emergency services at [phone]. What other information should I know? Keep all appointments with your doctor and the laboratory. Do not let anyone else take your medication. Topiramate use needs to be monitored closely. Prescriptions may be refilled only a limited number of times. Keep a written list of all of your prescription and nonprescription ([id number]) medicines, in addition to vitamins, minerals, or other dietary supplements. How should I monitor while on this medication? Your doctor will check your baseline kidney function and electrolytes prior to starting this medication, then periodically. Continue to improve your dietary and physical activity habits as the combination works best while on this medication. Start out by taking the medication at bedtime as it can cause fatigue and sleepiness. Be sure to eat regular meals. Less hunger does not make it appropriate to skip meals. Make sure to have an eye exam, including the pressure in your eyes (intra-ocular pressure), once a year. What should I do if I forget a dose? Skip the missed dose and continue your regular dosing schedule the next day. Do not take a double dose to make up for a missed one. Sources [facility]: http://www.ncbi.nlm.nih.gov/pubm edhealth/PTN8828172/ Drugs.com http://www.drugs.com/pro/topiram ate.html documented in this encounter [facility] 02-09-2025 Note HNO ID: [id number] Author: LENORE MORELOS APRN.CNP Service: ? Author Type: Nurse Practitioner Type: Progress Notes Filed: 02/12/2025 12:14 Note Text: Obesity Medicine Followup Note This Team Access Model visit is a virtual visit. It required patient-provider interaction for the medical decision making as documented below. Consent was obtained to complete today's distance health visit. I have communicated my name and active licensure. The patient's identity and physical location were verified at the time of this visit. Either the patient or their legal representative phlebotomy services has been informed of the risks and benefits of -- and alternatives to -- treatment through a remote evaluation and consents to proceed with the evaluation remotely. 02-09-25 Patient HPI: is 48 year old Female who presents with diagnosis of class III severe obesity with PMH inflammatory breast cancer on the right, and Type 2 diabetes mellitus for follow-up evaluation of her obesity and related complications. In our previous visits we have outlined an individualized lifestyle intervention including a personalized nutrition recommendations and physical activity optimization. Tameka Allan is here today for follow up evaluation for non surgical metabolic weight loss management. her last office visit was3 month(s) ago with advanced practice registered nurse. Weight loss since last visit: Goal weight 160 Today's weight:223 lbs Last weight: 219.9 BMI: 36.53 Today's concerns: Current Obesity Medications: Mounjaro 15 mg subcutaneous weekly injection Reports increased cravings and snacks Blood sugar controlled Decreased appetite Exercise Freq- continues with steps and walking, and running program at work and with dog and joined video [employer] classes and weight training; walking at work and did 5 k in 53 minutes Barriers- some fatigue and traveling and holidays Work-related activity: active Diet Healthy food choices Meals 3 Struggled with snacking 3 meals daily Occasional skip meal breakfast Protein and veggies Starting with protein shake Water 60-80 ounces Snacking: healthier options Fruit and salads Dinner at 5 p and cravings at 8:30 -9 pm cheese ?Sleep Duration (<6hr)- 6-7 hours Quality- using cpap nightly Stress Degree- moderate Cause-coping - mother /marriage PAST MEDICAL HISTORY Diagnosis Date Atypical mole Benign colon polyp BRCA negative 2014 1 AND 2 Diabetes mellitus (HCC) Diabetes mellitus (HCC) Inflammatory breast cancer right breast, stage 3C- in lymphnodes- triple negative Right tibial fracture Snoring FUNCTIONAL STATUS: Walk indoors, such as around the house (1.75 METs) Do light work around the house, such as dusting or washing dishes (2.70 METs) Take care of self, that is eating, dressing, bathing, using the toilet (2.75 METs) Walk a block or two on level ground (2.75 METs) Do moderate work around the house such as vacuuming, sweeping floors, or carrying in groceries (3.50 METs) Do yardwork, such as raking leaves, weeding,or pushing a power mower (4.50 METs) Climb a flight of stairs or walk up a hill (5.50 METs) Review of Systems: Review of Systems Constitutional: Negative. HENT: Negative. Eyes: No hx of glaucoma Respiratory: Negative. Cardiovascular: Negative. Gastrointestinal: Had some sl diarrhea when on vacation; Tracking food Dietary fiber Endocrine: No hx of hypothyroidism Genitourinary: No renal stones Musculoskeletal: Negative. Skin: Negative. Allergic/Immunologic: Negative. Neurological: Negative. Hematological: Negative. Psychiatric/Behavioral: Negative. PAST SURGICAL HISTORY Procedure Laterality Date BREAST BIOPSY 07/28/2015 COLONOSCOPY 12/13/2024 COLONOSCOPY FLX DX W/COLLJ SPEC WHEN PFRMD 11/19/2013 Colonoscopy COLONOSCOPY FLX DX W/COLLJ SPEC WHEN PFRMD N/A 11/22/2016 COLONOSCOPY FLX DX W/COLLJ SPEC WHEN PFRMD 12/13/2019 Colonoscopy 5 year interval EXTRACTION, ERUPTED TOOTH OR EXPOSED ROOT (ELEVATION AND/OR FORCEPS REMOVAL) 1998 wisdom teeth INSERT INTRAUTERINE DEVICE 07/05/2015, 06/22/2020 LAPAROSCOPIC CHOLECYSTECTOMY 08/30/2022 MAST MODF RAD W/AX LYMPH NOD W/WO PECT/ABELARDO MIN Right 02/05/2016 SALPINGECTOMY COMPLETE/PARTIAL UNI/BI SPX 06/22/2020 bilateral salpingectomy, sterilization, IUD insertion Social History Tobacco Use Smoking status: Former Current packs/day: 0.00 Average packs/day: 0.3 packs/day for 11.4 years (2.8 ttl pk-yrs) Types: Cigarettes Start date: 1995 Quit date: 02/20/2007 Years since quittin.9 Passive exposure: Past Smokeless tobacco: Never Vaping Use Vaping status: Never Used Substance Use Topics Alcohol use: Yes Alcohol/week: 2.0 standard drinks of alcohol Types: 1 Glasses of wine, 1 Cans of beer per week Comment: occasional Drug use: No PE- virtual visit Ht 166.4 cm (5' 5.5) Wt 101.2 kg (223 lb 3.2 oz) LMP 07/05/2015 (Exact (more content not included)... [facility] 02-09-2025 History of Presen t illness Narrative Obesity Medicine Followup Note This Team Access Model visit is a virtual visit. It required patient-provider interaction for the medical decision making as documented below. Consent was obtained to complete today's distance health visit. I have communicated my name and active licensure. The patient's identity and physical location were verified at the time of this visit. Either the patient or their legal representative phlebotomy services has been informed of the risks and benefits of -- and alternatives to -- treatment through a remote evaluation and consents to proceed with the evaluation remotely. 02-09-25 Patient HPI: is 48 year old Female who presents with diagnosis of class III severe obesity with PMH inflammatory breast cancer on the right, and Type 2 diabetes mellitus for follow-up evaluation of her obesity and related complications. In our previous visits we have outlined an individualized lifestyle intervention including a personalized nutrition recommendations and physical activity optimization. Tameka Allan is here today for follow up evaluation for non surgical metabolic weight loss management. her last office visit was3 month(s) ago with advanced practice registered nurse. Weight loss since last visit: Goal weight 160 Today's weight:223 lbs Last weight: 219.9 BMI: 36.53 Today's concerns: Current Obesity Medications: Mounjaro 15 mg subcutaneous weekly injection Reports increased cravings and snacks Blood sugar controlled Decreased appetite Exercise Freq- continues with steps and walking, and running program at work and with dog and joined video HIT classes and weight training; walking at work and did 5 k in 53 minutes Barriers- some fatigue and traveling and holidays Work-related activity: active Diet Healthy food choices Meals 3 Struggled with snacking 3 meals daily Occasional skip meal breakfast Protein and veggies Starting with protein shake Water 60-80 ounces Snacking: healthier options Fruit and salads Dinner at 5 p and cravings at 8:30 -9 pm cheese ?Sleep Duration (<6hr)- 6-7 hours Quality- using cpap nightly Stress Degree- moderate Cause-coping - mother /marriage PAST MEDICAL HISTORY Diagnosis Date Atypical mole Benign colon polyp BRCA negative 2014 1 & 2 Diabetes mellitus (HCC) Diabetes mellitus (HCC) Inflammatory breast cancer right breast, stage 3C- in lymphnodes- triple negative Right tibial fracture Snoring FUNCTIONAL STATUS: Walk indoors, such as around the house (1.75 METs) Do light work around the house, such as dusting or washing dishes (2.70 METs) Take care of self, that is eating, dressing, bathing, using the toilet (2.75 METs) Walk a block or two on level ground (2.75 METs) Do moderate work around the house such as vacuuming, sweeping floors, or carrying in groceries (3.50 METs) Do yardwork, such as raking leaves, weeding,or pushing a power mower (4.50 METs) Climb a flight of stairs or walk up a hill (5.50 METs) Review of Systems: Review of Systems Constitutional: Negative. HENT: Negative. Eyes: No hx of glaucoma Respiratory: Negative. Cardiovascular: Negative. Gastrointestinal: Had some sl diarrhea when on vacation; Tracking food Dietary fiber Endocrine: No hx of hypothyroidism Genitourinary: No renal stones Musculoskeletal: Negative. Skin: Negative. Allergic/Immunologic: Negative. Neurological: Negative. Hematological: Negative. Psychiatric/Behavioral: Negative. PAST SURGICAL HISTORY Procedure Laterality Date BREAST BIOPSY 07/28/2015 COLONOSCOPY 12/13/2024 COLONOSCOPY FLX DX W/COLLJ SPEC WHEN PFRMD 11/19/2013 Colonoscopy COLONOSCOPY FLX DX W/COLLJ SPEC WHEN PFRMD N/A 11/22/2016 COLONOSCOPY FLX DX W/COLLJ SPEC WHEN PFRMD 12/13/2019 Colonoscopy 5 year interval EXTRACTION, ERUPTED TOOTH OR EXPOSED ROOT (ELEVATION AND/OR FORCEPS REMOVAL) 1998 wisdom teeth INSERT INTRAUTERINE DEVICE 07/05/2015, 06/22/2020 LAPAROSCOPIC CHOLECYSTECTOMY 08/30/2022 MAST MODF RAD W/AX LYMPH NOD W/WO PECT/ABELARDO MIN Right 02/05/2016 SALPINGECTOMY COMPLETE/PARTIAL UNI/BI SPX 06/22/2020 bilateral salpingectomy, sterilization, IUD insertion Social History Tobacco Use Smoking status: Former Current packs/day: 0.00 Average packs/day: 0.3 packs/day for 11.4 years (2.8 ttl pk-yrs) Types: Cigarettes Start date: 1995 Quit date: 02/20/2007 Years since quittin.9 Passive exposure: Past Smokeless tobacco: Never Vaping Use Vaping status: Never Used Substance Use Topics Alcohol use: Yes Alcohol/week: 2.0 standard drinks of alcohol Types: 1 Glasses of wine, 1 Cans of beer per week Comment: occasional Drug use: No PE- virtual visit Ht 166.4 cm (5' 5.5) Wt 101.2 kg (223 lb 3.2 oz) LMP 07/05/2015 (Exact Date) BMI 36.58 kg/m Physical Exam Vitals reviewed. Constitutional: Appearance: Normal appearance. Neurological: General: No focal deficit present. Mental Status: She is alert and oriented to person, place, and time. Mental status is at baseline. Psychiatric: Mood and Affect: Mood normal. Behavior: Behavior normal. Thought Content: Thought content normal. Judgment: Judgment normal. Results No visits with results within 3 Month(s) from this visit. Latest known visit with results is: Appointment on 02/10/2023 Component Date Value Ref Range Status Hemoglobin A1C 02/10/2023 5.0 4.3 - 5.6 % Final Estimated Average Glucose 02/10/2023 97 mg/dL Final Vitamin D 25 Hydroxy 02/10/2023 55.0 31.0 - 80.0 ng/mL Final Cholesterol, Total 02/10/2023 187 <200 mg/dL Final Triglyceride 02/10/2023 125 <150 mg/dL Final HDL Cholesterol 02/10/2023 39 (L) >39 mg/dL Final Non HDL Cholesterol 02/10/2023 148 (H) <130 mg/dL Final Fasting Time 02/10/2023 12 hrs Final VLDL Cholesterol 02/10/2023 25 <30 mg/dL Final TC:HDL Ratio 02/10/2023 4.79 <5.10 Final LDL Cholesterol 02/10/2023 123 (H) <100 mg/dL Final LDL:HDL Ratio 02/10/2023 3.15 (H) <2.54 Final Protein, Total 02/10/2023 7.4 6.3 - 8.0 g/dL Final Albumin 02/10/2023 4.2 3.9 - 4.9 g/dL Final Calcium, Total 02/10/2023 8.8 8.5 - 10.2 mg/dL Final Bilirubin, Total 02/10/2023 0.4 0.2 - 1.3 mg/dL Final Alkaline Phosphatase 02/10/2023 46 34 - 123 U/L Final AST 02/10/2023 14 13 - 35 U/L Final ALT 02/10/2023 21 7 - 38 U/L Final Glucose 02/10/2023 97 74 - 99 mg/dL Final BUN 02/10/2023 11 7 - 21 mg/dL Final Creatinine 02/10/2023 0.80 0.58 - 0.96 mg/dL Final Sodium 02/10/2023 138 136 - 144 mmol/L Final Potassium 02/10/2023 4.0 3.7 - 5.1 mmol/L Final Chloride 02/10/2023 104 97 - 105 mmol/L Final CO2 02/10/2023 24 22 - 30 mmol/L Final Anion Gap 02/10/2023 10 9 - 18 mmol/L Final Estimated Glomerular Filtration Ra* 02/10/2023 93 >=60 mL/min/1.73m Final WBC 02/10/2023 11.03 (H) 3.70 - 11.00 k/uL Final RBC 02/10/2023 4.77 3.90 - 5.20 m/uL Final Hemoglobin 02/10/2023 15.0 11.5 - 15.5 g/dL Final Hematocrit 02/10/2023 43.0 36.0 - 46.0 % Final MCV 02/10/2023 90.1 80.0 - 100.0 fL Final MCH 02/10/2023 31.4 26.0 - 34.0 pg Final MCHC 02/10/2023 34.9 30.5 - 36.0 g/dL Final RDW-CV 02/10/2023 12.6 11.5 - 15.0 % Final Platelet Count 02/10/2023 240 150 - 400 k/uL Final MPV 02/10/2023 9.8 9.0 - 12.7 fL Final Neutrophils % 02/10/2023 65.9 % Final Abs Neut 02/10/2023 7.26 1.45 - 7.50 k/uL Final Lymphocytes % 02/10/2023 23.4 % Final Abs Lymph 02/10/2023 2.58 1.00 - 4.00 k/uL Final Monocytes % 02/10/2023 7.5 % Final Abs Richardson 02/10/2023 0.83 <0.87 k/uL Final Eosinophils % 02/10/2023 2.1 % Final Abs Eosin 02/10/2023 0.23 <0.46 k/uL Final Basophils % 02/10/2023 0.5 % Final Abs Baso 02/10/2023 0.06 <0.11 k/uL Final Immature Granulocytes % 02/10/2023 0.6 % Final Abs Immature Gran 02/10/2023 0.07 <0.10 k/uL Final NRBC 02/10/2023 0.0 /100 WBC Final Absolute nRBC 02/10/2023 <0.01 <0.01 k/uL Final Diff Type 02/10/2023 Auto Final Impression: 48 year old female with a a diagnosis of class 3 obesity here for non surgical metabolic weight loss management. Body mass index is 36.58 kg/m . Assessment/Plan: ASSESSMENT/PLAN: 1. Class 3 severe obesity with serious comorbidity in adult - ICD9: 278.01, ICD10: E66.813 (primary diagnosis) Weight increasing - Behavioral and pharmacological intervention Patient continues to struggle with cravings and hunger. She reports occasional skipping meals and some unstructured eating. at this time we discussed and I have recommended the following:- Restart food journaling avoid skipping meals continue to monitor blood sugars closely we discussed more consistency with meals and mealtimes encourage patient to have an healthy options afternoon snack to avoid unhealthy snacking and increase her protein and continue with intermittent fasting. encourage patient to continue her cardio mix up her routine to prevent weight plateau. I have reviewed her medications in attempt to help with her blood sugars, her weight her hunger we have agreed upon the following: We will add - TOPIRAMATE 25 MG TABLET- off-label use to help with evening cravings. Continue Mounjaro 15 mg subcutaneous weekly injection monitor blood sugars closely. Education included discussing thyroid C-cell tumor risk including Medullary Thyroid Carcinoma (MTC).Though studies have shown increased risk of medullary cell cancers only in rats. Patient denies family history of MTC and Multiple Endocrine Neoplasia Syndrome type 2 (MEN 2). I discussed that this medication is associated with acute pancreatitis, including fatal and non-fatal hemorrhagic or necrotizing pancreatitis. Pt does not have a hx of pancreatitis. Educated patient to monitor for signs such as persistent severe abdominal pain, sometimes radiating to the back, with or without vomiting. If this occurs, stop medication immediately and go to ER. The most common adverse reactions include nausea, vomiting, diarrhea, constipation and injection site erythema. These may dissipate over time. Helpful tip GLP-1 RA increases beta cell proliferation. 2. Inflammatory breast cancer, right (HCC) - ICD9: 174.9, ICD10: C50.911 continue follow-up as warranted with oncology - TOPIRAMATE 25 MG TABLET 3. Type 2 diabetes mellitus with other specified complication, without long-term current use of insulin (HCC) - ICD9: 250.80, ICD10: E11.69 - Controlled - Continue current medications - Counseled on healthy diet and regular exercise - Discussed need for and benefit of weight loss. BMI 36.58 kg/(m^2) - Discussed diabetic education issues of diabetes complications and monitoring required, hypoglycemic/hyperglycemic symptoms, medication-specific side effects and monitoring, and diabetic sick day rules - TIRZEPATIDE 15 MG/0.5 ML SUBCUTANEOUS PEN INJECTOR - TOPIRAMATE 25 MG TABLET 4. HALIMA (obstructive sleep apnea) - ICD9: 327.23, ICD10: G47.33 continue CPAP nightly - TOPIRAMATE 25 MG TABLET 5. Dietary counseling and surveillance - ICD9: V65.3, ICD10: Z71.3 Reviewed principles of energy metabolism caloric intake and expenditure and rationale for treatment program. Also reinforced need for reduced calorie low-fat nutrition and increase physical activity. - TIRZEPATIDE 15 MG/0.5 ML SUBCUTANEOUS PEN INJECTOR - TOPIRAMATE 25 MG TABLET 6. BMI 37.0-37.9, adult - ICD9: V85.37, ICD10: Z68.37 BMI today 36.58 continue pharmacological and behavioral intervention - TIRZEPATIDE 15 MG/0.5 ML SUBCUTANEOUS PEN INJECTOR - TOPIRAMATE 25 MG TABLET 7. Abnormal craving - ICD9: 783.9, ICD10: R63.8 encourage patient to increase protein, low-carb low sugar foods and increase activity Lenore Morelos APRN.MANAGER BUSINESS [employer]ANNING Patient is doing well otherwise, continues lifestyle modification. Patient remains motivated to lose weight. This note was partially generated using [employer] voice recognition system, and there may be some incorrect words, spellings, and punctuation that were not noted in checking the note before saving. -- We discussed several strategies to track food intake and increase mindfulness around eating. We will start with a self-directed attempt in combination with the above recommendations. -- Encouraged consistency of exercise, with an overall goal of 200 minutes per week. This dose of exercise has been effective in weight loss and maintenance. We discussed that cardiovascular exercise is most beneficial for weight loss initially, but it is important to combine resistance training as there is a loss of lean muscle mass with weight loss. Lenore Morelos APRN [facility] Obesity Medicine I spent a total of 30 minutes on the date of the service which included preparing to see the patient, [id number] patient care, completing clinical documentation, obtaining and/or reviewing separately obtained history, performing a medically appropriate examination, counseling and educating the patient/family/caregiver, ordering medications, tests, or procedures, communicating with other HCPs (not separately reported), independently interpreting results (not separately reported), communicating results to the patient/family/caregiver, and care coordination (not separately reported) 5A's- Assess: I assessed behavioral health risk/factors affecting --- Asked about/assess behavioral health risk(s) and factors affecting choice of behavior change goals --- somewhat sedentry lifestyle ---?snacking ---Lack of exercise Advise: clear, specific, personalized behavior change advice. ---I gave very clear, specific, and personalized behavior change adviced, including information about personal health harms and benefits. Agree: Patient agrees with selected appropriate treatment goals and methods to change behavior Assist: Provided IBT w self-help, handouts, teaching skills and support Using behavior change techniques with self-help and Counseling in achieving Goals. Also discussed supplementing with adjunctive medical treatments when appropriate. Arrange: follow up scheduled, handouts given to patient. documented in this encounter [facility] 12-21-2024 History of Presen t illness Narrative FOLLOW UP VISIT - ENDOSCOPY Tameka Allan 1975 [id number] REFERRING PHYSICIAN: No referring provider defined for this encounter. Tameka Allan is a patient I am following for colon cancer- family history & hx of polyps. Dr. Clifford performed lower endoscopy on 12/13/24. The patient was found to have Impression: - One small (4-6 mm) polyp in the descending colon, removed with a cold snare. Resected and retrieved. - Non-bleeding internal hemorrhoids. - The examination was otherwise normal. Pathology demonstrated: FINAL DIAGNOSIS A. Ascending colon, polypectomy: - Focal changes suggestive of hyperplastic polyp. - Negative for dysplasia. The patient notes no complaints since the procedure. VITALS: There were no vitals taken for this visit. General: patient is alert, cooperative, pleasant and in no acute distress On examination, the abdomen is benign. Assessment ASSESSMENT/PLAN: 1. Hyperplastic polyp of ascending colon - ICD9: 211.3, ICD10: K63.5 The operative findings and pathology report were reviewed with the patient, and the patient has had the opportunity to ask questions and have questions answered. If the patient notes any problems or changes in bowel function, the patient should contact me immediately. Otherwise I recommend follow up endoscopy in 5 years. updated and recall letter generated. Discussed treatment plan and patient voices understanding. Patient's questions answered appropriately. Medications and potential side effects were discussed and patient voices understanding. Return to the office as scheduled or as needed for worsening/no improvement. Ludy Lee APRN.MANAGER [employer]ING documented in this encounter [facility] 12-21-2024 Note HNO ID: [id number] Author: LUDY LEE APRN.[facility]ILLA Service: ? Author Type: Nurse Practitioner Type: Progress Notes Filed: 12/21/2024 08:18 Note Text: FOLLOW UP VISIT - ENDOSCOPY Tameka Allan 1975 [id number] REFERRING PHYSICIAN: No referring provider defined for this encounter. Tameka Allan is a patient I am following for colon cancer- family history AND hx of polyps. Dr. Clifford performed lower endoscopy on 12/13/24. The patient was found to have Impression: - One small (4-6 mm) polyp in the descending colon, removed with a cold snare. Resected and retrieved. - Non-bleeding internal hemorrhoids. - The examination was otherwise normal. Pathology demonstrated: FINAL DIAGNOSIS A. Ascending colon, polypectomy: - Focal changes suggestive of hyperplastic polyp. - Negative for dysplasia. The patient notes no complaints since the procedure. VITALS: There were no vitals taken for this visit. General: patient is alert, cooperative, pleasant and in no acute distress On examination, the abdomen is benign. Assessment ASSESSMENT/PLAN: 1. Hyperplastic polyp of ascending colon - ICD9: 211.3, ICD10: K63.5 The operative findings and pathology report were reviewed with the patient, and the patient has had the opportunity to ask questions and have questions answered. If the patient notes any problems or changes in bowel function, the patient should contact me immediately. Otherwise I recommend follow up endoscopy in 5 years. updated and recall letter generated. Discussed treatment plan and patient voices understanding. Patient's questions answered appropriately. Medications and potential side effects were discussed and patient voices understanding. Return to the office as scheduled or as needed for worsening/no improvement. Ludy Lee APRN.[facility]ILLA [facility] 12-13-2024 Note Formatting of this n ote might be different from the original. The patient received a copy of Colonoscopy discharge instructions that contain information for how to contact the physician who performed the procedure and when to seek medical care. [facility] 12-13-2024 Miscellaneous Notes The patient received a copy of Colonoscopy discharge instructions that contain information for how to contact the physician who performed the procedure and when to seek medical care. documented in this encounter [facility] 12-13-2024 History and physical note HISTORY AND PHYSICAL Tameka Allan : 1975 REFERRING PHYSICIAN: No referring provider defined for this encounter. CHIEF COMPLAINT: Patient presents with: Cancer Surveillance: Colonoscopy consultation HPI: Tameka is a 48 year old female referred for endoscopy. Tameka notes due for colon cancer screening, family hx of colon cancer in father & personal hx of polyps(2017). Tameka denies abdominal pain.. Tameka denies diarrhea. Tameka denies constipation. Tameka denies a change in bowel habits. Tameka denies melena. Tameka denies bright red blood per rectum. Tameka denies hemorrhoids. Tameka denies heartburn. Tameka denies dysphagia. Tameka denies a history of ulcers/ peptic ulcer disease. Tameka's medical hx is significant for obesity, HALIMA c/w CPAP, T2DM and inflammatory breast cancer (2016). Tameka has undergone prior endoscopy. Last colonoscopy was 12/[address] Hanna at [facility]. Sedation:Fentanyl 100 micrograms IV, Midazolam 5 mg IV Impression: - The entire examined colon is normal. - No specimens collected. CURRENT MEDICATIONS Current Outpatient Medications Medication Sig tirzepatide (MOUNJARO) 15 mg/0.5 mL pen injector Inject 15 mg subcutaneously one time a week. CPAP/BIPAP/OTHER AutoPAP 5-20 cmH2O Mask per patient preference Lifetime supplies Dx: HALIMA levonorgestrel (LILETTA) 20.1 mcg/24 hrs (6 yrs) 52 mg IUD 1 Each by INTRAUTERINE route as directed. put in at [facility] peg 3350-Electrolytes (GOLYTELY) 236-22.74-6.74 -5.86 gram suspension Take 4,000 mL by mouth one time only for 1 dose. Refer to printed prep instructions from your provider. No current facility-administered medications for this visit. ALLERGIES: Seasonal Allergies PAST MEDICAL HISTORY PAST MEDICAL HISTORY Diagnosis Date Atypical mole Benign colon polyp BRCA negative 2014 1 & 2 Diabetes mellitus (HCC) Diabetes mellitus (HCC) Inflammatory breast cancer right breast, stage 3C- in lymphnodes- triple negative Right tibial fracture Snoring PAST SURGICAL HISTORY PAST SURGICAL HISTORY Procedure Laterality Date BREAST BIOPSY 07/28/2015 COLONOSCOPY FLX DX W/COLLJ SPEC WHEN PFRMD 11/19/2013 Colonoscopy COLONOSCOPY FLX DX W/COLLJ SPEC WHEN PFRMD N/A 11/22/2016 COLONOSCOPY FLX DX W/COLLJ SPEC WHEN PFRMD 12/13/2019 Colonoscopy 5 year interval EXTRACTION, ERUPTED TOOTH OR EXPOSED ROOT (ELEVATION AND/OR FORCEPS REMOVAL) 1998 wisdom teeth INSERT INTRAUTERINE DEVICE 07/05/2015, 06/22/2020 LAPAROSCOPIC CHOLECYSTECTOMY 08/30/2022 MAST MODF RAD W/AX LYMPH NOD W/WO PECT/ABELARDO MIN Right 02/05/2016 SALPINGECTOMY COMPLETE/PARTIAL UNI/BI SPX 06/22/2020 bilateral salpingectomy, sterilization, IUD insertion FAMILY HISTORY FAMILY HISTORY Problem Relation Age of Onset Hypertension Mother 80 in Colon Cancer Father passed in 1983 in his 50's other (precancerous breast lesion) Maternal Grandmother 80 Ovarian cancer Paternal Grandmother Other 2nd degree relative Cancer Paternal Grandfather kidney Breast Cancer Other 2nd degree relative Ovarian cancer Other SOCIAL HISTORY Social History Tobacco Use Smoking status: Former Current packs/day: 0.00 Average packs/day: 0.3 packs/day for 11.4 years (2.8 ttl pk-yrs) Types: Cigarettes Start date: 1995 Quit date: 02/20/2007 Years since quittin.7 Passive exposure: Past Smokeless tobacco: Never Vaping Use Vaping status: Never Used Substance Use Topics Alcohol use: Yes Alcohol/week: 2.0 standard drinks of alcohol Types: 1 Glasses of wine, 1 Cans of beer per week Comment: occasional Drug use: No REVIEW OF SYMPTOMS: The review of systems data was entered by the nurse and reviewed by me SEE NURSING NOTE PHYSICAL EXAMINATION: General: The patient is 48 year old, female well nourished, well hydrated in no acute distress. The patient is oriented to time, place, and person. VITALS: Blood pressure 118/76, pulse 78, temperature 36.2 C (97.1 F), resp. rate 17, height 166.4 cm (5' 5.5), weight 103.2 kg (227 lb 9.6 oz), last menstrual period 07/05/2015, SpO2 100%. Body mass index is 37.3 kg/m . HEENT: Normal cephalic, ataumatic, pupils are equally round, sclera are anicteric, mucous membranes are moist, oropharynx is clear. Neck has no masses, asymmetry or lymphadenopathy. Respiratory: Clear to auscultation and percussion. Normal respiratory excursion and pattern. Cardiac: Examination is regular rate and rhythm. Normal S1/S2 Abdominal exam: Soft, nontender, with no palpable masses. No hepatosplenomegaly. No palpable hernias. Extremities: no clubbing, cyanosis or edema. No adenopathy. LABORATORY VALUES: As Noted RADIOLOGIC STUDIES: As Noted Assessment IMPRESSION: screen for colon cancer, family history of colon cancer in father PLAN: I have reviewed my findings with the surgeon. Will plan for lower endoscopy. We discussed the risks and benefits of the planned endoscopy. I have informed the patient that complications can occur including failure to complete the endoscopy and perforation. Tameka had the opportunity to ask questions concerning the planned endoscopy. My staff has also explained the procedure to the patient in understandable terms and has given the patient printed material concerning the procedure. Tameka freely consents to surgery. I plan to use Golytely bowel preparation I have explained to the patient the difference between IV conscious sedation and MAC anesthesia - and I have offered either, according to the patient's wishes. I have explained that with IV conscious sedation there is no anesthesia provider available and therefore there is a limitation of the amount of IV medications that can be given and that the patient may wake up in the middle of the procedure and/or experience pain/discomfort during the procedure. Further discussion was done and the patient was given the opportunity to ask questions and all questions were answered. Tameka chooses IV conscious sedation. Tameka was counseled that if there are changes in his/her medical condition, to let the office know if surgery should proceed. If there are changes in patient's medical condition from time of this encounter to the day of the procedure that preclude anesthesia, patient may have procedure cancelled for patient's safety. Diagnoses: (Z12.11) Screen for colon cancer (primary encounter diagnosis) (Z80.0) Family history of colon cancer in father Portions of this documentation were copied and pasted from previous office visit notes in order to provide a cohesive continuity of the history. The note has been reviewed and edited and updated as necessary. Ludy Lee APRN.MANAGER BUSINESS PLANNING UPDATED HISTORY AND PHYSICAL EXAMINATION SERVICE DATE: 12/13/2024 SERVICE TIME: 7:48 AM PHYSICAL EXAM MUST BE COMPLETED ON ADMISSION The History and Physical (completed in the past 30 days) has been reviewed and the patient has been examined. The contents accurately reflect the patient's condition with the following additions or revisions since the H&P was completed. Examination indicates no changes. This H&P can be found in the attached. SIGNATURE: Rico Clifford III, MD PATIENT NAME: Tameka Allan DATE: December 13, 2024 TIME: 7:48 AM [facility] 12-13-2024 History and physical note HISTORY AND PHYSICAL Tameka Allan : 1975 REFERRING PHYSICIAN: No referring provider defined for this encounter. CHIEF COMPLAINT: Patient presents with: Cancer Surveillance: Colonoscopy consultation HPI: Tameka is a 48 year old female referred for endoscopy. Tameka notes due for colon cancer screening, family hx of colon cancer in father & personal hx of polyps(2017). Tameka denies abdominal pain.. Tameka denies diarrhea. Tameka denies constipation. Tameka denies a change in bowel habits. Tameka denies melena. Tameka denies bright red blood per rectum. Tameka denies hemorrhoids. Tameka denies heartburn. Tameka denies dysphagia. Tameka denies a history of ulcers/ peptic ulcer disease. Tameka's medical hx is significant for obesity, HALIMA c/w CPAP, T2DM and inflammatory breast cancer (2016). Tameka has undergone prior endoscopy. Last colonoscopy was 12/[address] Hanna at [facility]. Sedation:Fentanyl 100 micrograms IV, Midazolam 5 mg IV Impression: - The entire examined colon is normal. - No specimens collected. CURRENT MEDICATIONS Current Outpatient Medications Medication Sig tirzepatide (MOUNJARO) 15 mg/0.5 mL pen injector Inject 15 mg subcutaneously one time a week. CPAP/BIPAP/OTHER AutoPAP 5-20 cmH2O Mask per patient preference Lifetime supplies Dx: HALIMA levonorgestrel (LILETTA) 20.1 mcg/24 hrs (6 yrs) 52 mg IUD 1 Each by INTRAUTERINE route as directed. put in at [facility] peg 3350-Electrolytes (GOLYTELY) 236-22.74-6.74 -5.86 gram suspension Take 4,000 mL by mouth one time only for 1 dose. Refer to printed prep instructions from your provider. No current facility-administered medications for this visit. ALLERGIES: Seasonal Allergies PAST MEDICAL HISTORY PAST MEDICAL HISTORY Diagnosis Date Atypical mole Benign colon polyp BRCA negative 2014 1 & 2 Diabetes mellitus (HCC) Diabetes mellitus (HCC) Inflammatory breast cancer right breast, stage 3C- in lymphnodes- triple negative Right tibial fracture Snoring PAST SURGICAL HISTORY PAST SURGICAL HISTORY Procedure Laterality Date BREAST BIOPSY 07/28/2015 COLONOSCOPY FLX DX W/COLLJ SPEC WHEN PFRMD 11/19/2013 Colonoscopy COLONOSCOPY FLX DX W/COLLJ SPEC WHEN PFRMD N/A 11/22/2016 COLONOSCOPY FLX DX W/COLLJ SPEC WHEN PFRMD 12/13/2019 Colonoscopy 5 year interval EXTRACTION, ERUPTED TOOTH OR EXPOSED ROOT (ELEVATION AND/OR FORCEPS REMOVAL) 1998 wisdom teeth INSERT INTRAUTERINE DEVICE 07/05/2015, 06/22/2020 LAPAROSCOPIC CHOLECYSTECTOMY 08/30/2022 MAST MODF RAD W/AX LYMPH NOD W/WO PECT/ABELARDO MIN Right 02/05/2016 SALPINGECTOMY COMPLETE/PARTIAL UNI/BI SPX 06/22/2020 bilateral salpingectomy, sterilization, IUD insertion FAMILY HISTORY FAMILY HISTORY Problem Relation Age of Onset Hypertension Mother 80 in Colon Cancer Father passed in 1983 in his 50's other (precancerous breast lesion) Maternal Grandmother 80 Ovarian cancer Paternal Grandmother Other 2nd degree relative Cancer Paternal Grandfather kidney Breast Cancer Other 2nd degree relative Ovarian cancer Other SOCIAL HISTORY Social History Tobacco Use Smoking status: Former Current packs/day: 0.00 Average packs/day: 0.3 packs/day for 11.4 years (2.8 ttl pk-yrs) Types: Cigarettes Start date: 1995 Quit date: 02/20/2007 Years since quittin.7 Passive exposure: Past Smokeless tobacco: Never Vaping Use Vaping status: Never Used Substance Use Topics Alcohol use: Yes Alcohol/week: 2.0 standard drinks of alcohol Types: 1 Glasses of wine, 1 Cans of beer per week Comment: occasional Drug use: No REVIEW OF SYMPTOMS: The review of systems data was entered by the nurse and reviewed by me SEE NURSING NOTE PHYSICAL EXAMINATION: General: The patient is 48 year old, female well nourished, well hydrated in no acute distress. The patient is oriented to time, place, and person. VITALS: Blood pressure 118/76, pulse 78, temperature 36.2 C (97.1 F), resp. rate 17, height 166.4 cm (5' 5.5), weight 103.2 kg (227 lb 9.6 oz), last menstrual period 07/05/2015, SpO2 100%. Body mass index is 37.3 kg/m . HEENT: Normal cephalic, ataumatic, pupils are equally round, sclera are anicteric, mucous membranes are moist, oropharynx is clear. Neck has no masses, asymmetry or lymphadenopathy. Respiratory: Clear to auscultation and percussion. Normal respiratory excursion and pattern. Cardiac: Examination is regular rate and rhythm. Normal S1/S2 Abdominal exam: Soft, nontender, with no palpable masses. No hepatosplenomegaly. No palpable hernias. Extremities: no clubbing, cyanosis or edema. No adenopathy. LABORATORY VALUES: As Noted RADIOLOGIC STUDIES: As Noted Assessment IMPRESSION: screen for colon cancer, family history of colon cancer in father PLAN: I have reviewed my findings with the surgeon. Will plan for lower endoscopy. We discussed the risks and benefits of the planned endoscopy. I have informed the patient that complications can occur including failure to complete the endoscopy and perforation. Tameka had the opportunity to ask questions concerning the planned endoscopy. My staff has also explained the procedure to the patient in understandable terms and has given the patient printed material concerning the procedure. Tameka freely consents to surgery. I plan to use Golytely bowel preparation I have explained to the patient the difference between IV conscious sedation and MAC anesthesia - and I have offered either, according to the patient's wishes. I have explained that with IV conscious sedation there is no anesthesia provider available and therefore there is a limitation of the amount of IV medications that can be given and that the patient may wake up in the middle of the procedure and/or experience pain/discomfort during the procedure. Further discussion was done and the patient was given the opportunity to ask questions and all questions were answered. Tameka chooses IV conscious sedation. Tameka was counseled that if there are changes in his/her medical condition, to let the office know if surgery should proceed. If there are changes in patient's medical condition from time of this encounter to the day of the procedure that preclude anesthesia, patient may have procedure cancelled for patient's safety. Diagnoses: (Z12.11) Screen for colon cancer (primary encounter diagnosis) (Z80.0) Family history of colon cancer in father Portions of this documentation were copied and pasted from previous office visit notes in order to provide a cohesive continuity of the history. The note has been reviewed and edited and updated as necessary. Ludy Lee APRN.MANAGER BUSINESS PLANNING UPDATED HISTORY AND PHYSICAL EXAMINATION SERVICE DATE: 12/13/2024 SERVICE TIME: 7:48 AM PHYSICAL EXAM MUST BE COMPLETED ON ADMISSION The History and Physical (completed in the past 30 days) has been reviewed and the patient has been examined. The contents accurately reflect the patient's condition with the following additions or revisions since the H&P was completed. Examination indicates no changes. This H&P can be found in the attached. SIGNATURE: Rico Clifford III, MD PATIENT NAME: Tameka Allan DATE: December 13, 2024 TIME: 7:48 AM documented in this encounter [facility] 11-18-2024 Telephone encounter Note Medication pended for the new pharmacy in chart [facility] 11-18-2024 Miscellaneous Notes Medication pended for the new pharmacy in chart documented in this encounter [facility] 11-11-2024 Instructions Shanique Jacinto APRN.MANAGER BUSINESS PLANNING - 11/11/2024 2:24 PM EST Images from the original note were not included. Breast Self-Exam What is a breast self-exam? A breast self-exam is a technique that a woman can use to examine her breasts to look for changes (such lumps or thickenings) that may signal breast cancer. When a woman detects breast cancer in its early stages, she greatly improves her chances for surviving the disease. Most breast lumps (80 percent) are not cancerous, but you can help ensure your breast health by regularly performing a breast self-exam. When should I perform a breast self-exam? You should perform a breast self-exam once a month, three to five days after your menstrual period ends. If you have stopped menstruating, perform the exam on the same day of each month, such as the first day of the month or a day easy for you to remember, like your date. The exam will take several minutes to perform. With each exam, you will become familiar with the contours and feel of your breasts and will be more alert to changes. 1. The first part of the exam is the inspection, or looking at your breasts. Stand undressed from waist up in front of a large mirror in a well-lit room. Look at your breasts. Don't be alarmed if they do not look equal in size or shape. Most women's breasts are not. With your arms relaxed by your sides, look for any changes in your breasts' size, shape, texture, or skin. Look for any sores as well as any puckering, dimpling, or discoloration of the skin. Inspect your nipples and look for any sores, peeling, or change in the direction of the nipples. 2. Next, place your hands on your hips and press down firmly to tighten the chest muscles beneath your breasts. Turn from side to side so you can inspect the outer part of your breasts. 3. Bend forward toward the mirror. Roll your shoulders and elbows forward to tighten your chest muscles. Your breasts will fall forward. Look for any changes in the shape or contour of your breasts. 4. Now, clasp your hands behind your head and press your hands forward. Again, turn from side to side to inspect your breasts' outer portions. Remember to inspect the border underneath your breasts. You may need to lift your breasts with your hand to see this area. 5. Check your nipples for discharge (fluid). Place your thumb and forefinger on the tissue surrounding the nipple, and pull outward toward the end of the nipple. Look for any discharge. Repeat on your other breast. In the shower 6. The second part of the exam is palpation, or feeling for changes. Use the finger pads of your three middle fingers on each hand to feel for lumps. It is helpful to have your hands slippery with soap and water. Check for any lumps or thickening in your underarm area. Place your left hand on your hip and reach with your right hand to feel in the left armpit. Repeat on the other side. 7. Check both sides for lumps or thickenings below your collarbone. 8. With soapy hands, support the breast with one hand while using the other hand to feel the tissue. Use the flat part of your fingers to press gently into the breast. Follow an up-and-down pattern along the breast, moving from bra line to collarbone. Continue the pattern until you have covered the entire breast. Repeat on the other side. Lying down 9. Next, lie down and place a small pillow or folded towel under your right shoulder. Put your right hand behind your head. Place your left hand on the upper portion of your right breast with fingers together and flat. Body lotion may help to make palpation easier. 10. Think of your breast as a face on a clock. Start at 12 o'clock and move toward 1 o'clock in small circular motions. Continue around the entire [place] until you reach 12 o'clock again. Keep your fingers flat and in constant contact with your breast. When the [place] is complete, move in one inch toward the nipple and complete another [place] around the clock. Continue in this pattern until your entire breast has been palpated. Make sure to palpate the upper outer areas that extend into your armpit. 11. Place your fingers flat and directly on top of your nipple. Feel beneath the nipple for any changes. Gently press your nipple inward. It should move easily. Repeat steps 9, 10, and 11 on your other breast. What should I do if I find a lump? See your physician if you discover any new breast changes, changes that persist after your menstrual cycle, or changes that concern you. Conditions that should be checked by a physician include: An area that is distinctly different from any other area on either breast A lump or thickening in or near the breast or in the underarm that persists through the menstrual cycle A change in the size, shape, or contour of the breast A mass or lump, which may feel as small as a pea A marble-like area under the skin A change in the feel or appearance of the skin on the breast or nipple (dimpled, puckered, scaly, or inflamed [red, warm, or swollen]) Bloody or clear fluid discharge from the nipples Redness of the skin on the breast or nipple References [employer]. Breast Cancer Accessed 09/13/2013. [place] P, Noe M, Akshat H. Breast disorders and breast cancer screening. In: Madai DEL CID, ed. [facility]: Current Clinical Medicine 2010. 2nd ed. [place], [place]: Anna Marie Elseivonne; 2010:section 15. Copyright 0523-9230 The [facility]. All rights reserved This information is provided by the [facility] and is not intended to replace the medical advice of your doctor or health care provider. Please consult your health care provider for advice about a specific medical condition. For additional health information, please contact the Center for Consumer Health Information at the [facility] or toll-free extension [phone]. If you prefer, you may visit [email or web address] documented in this encounter [facility] 11-11-2024 History of Presen t illness Narrative Images from the original note were not included. Shanique Jacinto APRN-CAMILLA, OCN Breast [facility] [address] [place], [place] [id number] Date of Visit: 11/11/2024 Patient Name: Tameka Allan Date of : 1975 Established Visit Breast Surgeon: Sade Wesley MD Medical Oncologist: Janna Hay MD SUBJECTIVE Chief Complaint: Patient presents with: Yearly Exam: CBE Results HPI Tameka Allan is a 48 year old female who presents today for review of recent (11/08/2024) annual breast imaging and clinical breast exam. She is an established [facility] patient and was last seen in the [facility] 11/07/2023. She denies current breast concerns including palpable breast lumps or masses, enlarged lymph nodes, pain, tenderness, skin changes, erythema, nipple discharge or breast trauma. Breast history includes: RIGHT axilla core biopsies ---> invasive poorly differentiated carcinoma. Associated necrosis and fibrous parenchyma. Adipose tissue. RIGHT breast core biopsies ---> invasive poorly differentiated carcinoma. ER negative / FL negative / HER2 negative by FISH Clinical staging: IIIB - T4d N1 M0 (Dr. Hay) Genetic testing negative Neoadjuvant AC 4 cycles followed by 12 weekly Taxol treatments, complete clinical response 02/05/2016 RIGHT modified radical mastectomy ---> no evidence of residual malignancy identified. RIGHT axillary lymph node dissection ---> 16 lymph nodes negative for malignancy (0). Pathologic staging: ypT0 ypN0 Post-mastectomy XRT completed (Dr. Leodan Zapien) Interim history: non-surgical weight loss continues / goal = weight loss of 100 lbs There are no exam notes on file for this visit. No question data found. Family and personal medical histories reviewed and updated. REVIEW OF SYSTEMS: Complete 10 system ROS done and negative except as stated above in the HPI. Current Outpatient Medications Medication Sig Dispense Refill CPAP/BIPAP/OTHER AutoPAP 5-20 cmH2O Mask per patient preference Lifetime supplies Dx: HALIMA 1 Each 0 levonorgestrel (LILETTA) 20.1 mcg/24 hrs (6 yrs) 52 mg IUD 1 Each by INTRAUTERINE route as directed. put in at [facility] 1 Intra Uterine Device 0 tirzepatide (MOUNJARO) 15 mg/0.5 mL pen injector Inject 15 mg subcutaneously one time a week. 2 mL 2 No current facility-administered medications for this visit. I have performed the physical exam on 11/11/2024 - all new findings noted below. PAST MEDICAL HISTORY Diagnosis Date Atypical mole Benign colon polyp BRCA negative 2014 1 & 2 Diabetes mellitus (HCC) Diabetes mellitus (HCC) Inflammatory breast cancer right breast, stage 3C- in lymphnodes- triple negative Right tibial fracture Snoring PAST SURGICAL HISTORY Procedure Laterality Date BREAST BIOPSY 07/28/2015 COLONOSCOPY 12/13/2024 COLONOSCOPY FLX DX W/COLLJ SPEC WHEN PFRMD 11/19/2013 Colonoscopy COLONOSCOPY FLX DX W/COLLJ SPEC WHEN PFRMD N/A 11/22/2016 COLONOSCOPY FLX DX W/COLLJ SPEC WHEN PFRMD 12/13/2019 Colonoscopy 5 year interval EXTRACTION, ERUPTED TOOTH OR EXPOSED ROOT (ELEVATION AND/OR FORCEPS REMOVAL) 1998 wisdom teeth INSERT INTRAUTERINE DEVICE 07/05/2015, 06/22/2020 LAPAROSCOPIC CHOLECYSTECTOMY 08/30/2022 MAST MODF RAD W/AX LYMPH NOD W/WO PECT/ABELARDO MIN Right 02/05/2016 SALPINGECTOMY COMPLETE/PARTIAL UNI/BI SPX 06/22/2020 bilateral salpingectomy, sterilization, IUD insertion Social History Tobacco Use Smoking status: Former Current packs/day: 0.00 Average packs/day: 0.3 packs/day for 11.4 years (2.8 ttl pk-yrs) Types: Cigarettes Start date: 1995 Quit date: 02/20/2007 Years since quittin.8 Passive exposure: Past Smokeless tobacco: Never Vaping Use Vaping status: Never Used Substance Use Topics Alcohol use: Yes Alcohol/week: 2.0 standard drinks of alcohol Types: 1 Glasses of wine, 1 Cans of beer per week Comment: occasional Drug use: No FAMILY HISTORY Problem Relation Age of Onset Hypertension Mother 80 in '24 Colon Cancer Father passed in 1983 in his 50's other (precancerous breast lesion) Maternal Grandmother 80 Ovarian cancer Paternal Grandmother Other 2nd degree relative Cancer Paternal Grandfather kidney Breast Cancer Other 2nd degree relative Ovarian cancer Other The ROS, medical, surgical, family, and social history were reviewed by Shanique Jacinto APRN.MANAGER BUSINESS PLANNING ALLERGIES Allergen Reactions Seasonal Allergies Cough Current Outpatient Medications Medication Sig CPAP/BIPAP/OTHER AutoPAP 5-20 cmH2O Mask per patient preference Lifetime supplies Dx: HALIMA levonorgestrel (LILETTA) 20.1 mcg/24 hrs (6 yrs) 52 mg IUD 1 Each by INTRAUTERINE route as directed. put in at [facility] tirzepatide (MOUNJARO) 15 mg/0.5 mL pen injector Inject 15 mg subcutaneously one time a week. No current facility-administered medications for this visit. OBJECTIVE BP 106/71 Pulse 76 Ht 166.4 cm (5' 5.5) Wt 103 kg (227 lb) LMP 07/05/2015 (Exact Date) BMI 37.20 kg/m BMI 37.20 kg/(m^2) Physical Exam BREAST EXAM: On visual inspection (seated, with hands on hips and with hands above head), the breasts are asymmetrical. RIGHT Skin changes: mastectomy and axillary incisional scars noted, NAC surgically absent Nipple retraction / inversion: No Axillary adenopathy: No Supraclavicular adenopathy: No Palpable masses: No Tenderness: No Nipple discharge: No Lymphedema: No LEFT Skin changes: No Nipple retraction / inversion: No Axillary adenopathy: No Supraclavicular adenopathy: No Palpable masses: No Tenderness: No Nipple discharge: No Lymphedema: No The sensitive examination was discussed with the Patient or Patient's Authorized Knitting Supervisor. As applicable, any other physician, advance practice provider, medical student, or other health professional student that will be observing or involved in the sensitive examination for educational or training purposes was discussed with the Patient or Authorized Knitting Supervisor. The Patient or Authorized Knitting Supervisor has agreed to proceed with the sensitive examination. (Sensitive examination includes inspection and/or palpation of the breasts, pelvis, prostate and anorectal regions) ASSESSMENT/PLAN: 1. Inflammatory breast cancer, right (HCC) - ICD9: 174.9, ICD10: C50.911 (primary diagnosis) 2. History of right mastectomy - ICD9: V45.71, ICD10: Z90.11 3. BRCA negative - ICD9: V82.71, ICD10: Z13.71 4. Visit for screening mammogram - ICD9: V76.12, ICD10: Z12.31 - Completed breast exam - Set up for mammogram, yearly mammogram recommended - Encouraged monthly BSE - Follow up for annual exam in one year. - CAMELIA SCREENING W CHANCE Tameka Allan is a 48 year old female who presents today for review of recent annual breast imaging and clinical breast exam. She denies any breast related concerns or complaints. There are no concerning or suspicious findings demonstrated on today's clinical breast exam. We discussed the report from 11/08/2024 imaging as follows: IMPRESSION: There is no mammographic evidence of malignancy in the left breast. Routine screening mammogram is recommended. Annual mammogram will be due in 1 year. BI-RADS Category 1: Negative She will maintain vigilant breast awareness and continue monthly self breast exams. She will contact us with any concerns. She is clinically stable and has no evidence of disease. The above reflects my independent exam and review. I saw and examined the patient myself personally. Parts of the HPI, ROS, exam and impression/plan may have been copied from my personal previous clinical note and remain pertinent. Current changes have been made and documented today. Other parts or data were deleted if not relevant for today. Plan as outlined. Follow up: Return in about 1 year (around 11/09/2025) for annual breast imaging, clinical exam. Medical Decision Making: Problems: Low: Stable chronic illness Data: Unique test result(s) reviewed: 3+ Unique test(s) ordered: 1 Risk: Low: Low risk from testing/treatment Medical Decision Making Level: 3 - Low Shanique Jacinto APRN.CNP I verified the chief medical physicist/nurse documentation in the medical record, and made appropriate changes. I personally performed a history,physical exam and medical decision making. Shanique Jacinto APRN-MANAGER BUSINESS PLANNING, OCN Tameka Allan is a 48 year old female who presents to follow up for Yearly Exam (CBE) and Results Pt denies breast pain, redness, left breast nipple drainage and palpable masses. Pt c/o muscle spasms of right back and right shoulder. Pt to discuss massages. Subha Milton LPN documented in this encounter [facility] 11-11-2024 Note HNO ID: [id number] Author: SHANIQUE JACINTO APRN.CAMILLA Service: ? Author Type: Nurse Practitioner Type: Progress Notes Filed: 12/20/2024 21:06 Note Text: Shanique Jacinto APRN-MANAGER BUSINESS PLANNING, OCN [place] [id number] Date of Visit: 11/11/2024 Patient Name: Tameka Allan Date of : 1975 Established Visit Breast Surgeon: Sade Wesley MD Medical Oncologist: Janna Hay MD SUBJECTIVE Chief Complaint: Patient presents with: Yearly Exam: CBE Results HPI Tameka Allan is a 48 year old female who presents today for review of recent (11/08/2024) annual breast imaging and clinical breast exam. She is an established [facility] patient and was last seen in the [facility] 11/07/2023. She denies current breast concerns including palpable breast lumps or masses, enlarged lymph nodes, pain, tenderness, skin changes, erythema, nipple discharge or breast trauma. Breast history includes: RIGHT axilla core biopsies ---> invasive poorly differentiated carcinoma. Associated necrosis and fibrous parenchyma. Adipose tissue. RIGHT breast core biopsies ---> invasive poorly differentiated carcinoma. ER negative / FL negative / HER2 negative by FISH Clinical staging: IIIB - T4d N1 M0 (Dr. Hay) Genetic testing negative Neoadjuvant AC 4 cycles followed by 12 weekly Taxol treatments, complete clinical response 02/05/2016 RIGHT modified radical mastectomy ---> no evidence of residual malignancy identified. RIGHT axillary lymph node dissection ---> 16 lymph nodes negative for malignancy (0). Pathologic staging: ypT0 ypN0 Post-mastectomy XRT completed (Dr. Leodan Zapien) Interim history: non-surgical weight loss continues / goal = weight loss of 100 lbs There are no exam notes on file for this visit. No question data found. Family and personal medical histories reviewed and updated. REVIEW OF SYSTEMS: Complete 10 system ROS done and negative except as stated above in the HPI. Current Outpatient Medications Medication Sig Dispense Refill CPAP/BIPAP/OTHER AutoPAP 5-20 cmH2O Mask per patient preference Lifetime supplies Dx: HALIMA 1 Each 0 levonorgestrel (LILETTA) 20.1 mcg/24 hrs (6 yrs) 52 mg IUD 1 Each by INTRAUTERINE route as directed. put in at [facility] 1 Intra Uterine Device 0 tirzepatide (MOUNJARO) 15 mg/0.5 mL pen injector Inject 15 mg subcutaneously one time a week. 2 mL 2 No current facility-administered medications for this visit. I have performed the physical exam on 11/11/2024 - all new findings noted below. PAST MEDICAL HISTORY Diagnosis Date Atypical mole Benign colon polyp BRCA negative 2014 1 AND 2 Diabetes mellitus (HCC) Diabetes mellitus (HCC) Inflammatory breast cancer right breast, stage 3C- in lymphnodes- triple negative Right tibial fracture Snoring PAST SURGICAL HISTORY Procedure Laterality Date BREAST BIOPSY 07/28/2015 COLONOSCOPY 12/13/2024 COLONOSCOPY FLX DX W/COLLJ SPEC WHEN PFRMD 11/19/2013 Colonoscopy COLONOSCOPY FLX DX W/COLLJ SPEC WHEN PFRMD N/A 11/22/2016 COLONOSCOPY FLX DX W/COLLJ SPEC WHEN PFRMD 12/13/2019 Colonoscopy 5 year interval EXTRACTION, ERUPTED TOOTH OR EXPOSED ROOT (ELEVATION AND/OR FORCEPS REMOVAL) 1998 wisdom teeth INSERT INTRAUTERINE DEVICE 07/05/2015, 06/22/2020 LAPAROSCOPIC CHOLECYSTECTOMY 08/30/2022 MAST MODF RAD W/AX LYMPH NOD W/WO PECT/ABELARDO MIN Right 02/05/2016 SALPINGECTOMY COMPLETE/PARTIAL UNI/BI SPX 06/22/2020 bilateral salpingectomy, sterilization, IUD insertion Social History Tobacco Use Smoking status: Former Current packs/day: 0.00 Average packs/day: 0.3 packs/day for 11.4 years (2.8 ttl pk-yrs) Types: Cigarettes Start date: 1995 Quit date: 02/20/2007 Years since quittin.8 Passive exposure: Past Smokeless tobacco: Never Vaping Use Vaping status: Never Used Substance Use Topics Alcohol use: Yes Alcohol/week: 2.0 standard drinks of alcohol Types: 1 Glasses of wine, 1 Cans of beer per week Comment: occasional Drug use: No FAMILY HISTORY Problem Relation Age of Onset Hypertension Mother 80 in '24 Colon Cancer Father passed in 1983 in his 50's other (precancerous breast lesion) Maternal Grandmother 80 Ovarian cancer Paternal Grandmother Other 2nd degree relative Cancer Paternal Grandfather kidney Breast Cancer Other 2nd degree relative Ovarian cancer Other The ROS, medical, surgical, family, and social history were reviewed by Shanique Jacinto APRN.MANAGER BUSINESS PLANNING ALLERGIES Allergen Reactions Seasonal Allergies Cough Current Outpatient Medications Medication Sig CPAP/BIPAP/OTHER AutoPAP 5-20 cmH2O Mask per patient preference Lifetime supplies Dx: HALIMA levonorgestrel (LILETTA) 20.1 mcg/24 hrs (6 yrs) 52 mg IUD 1 Each by INTRAUTERINE route as directed. put in at [facility] tirzepatide (MOUNJARO) 15 mg/0.5 mL pen injector Inject 15 mg subcu (more content not included)... [facility] 11-11-2024 Note HNO ID: [id number] Author: SUBHA MILTON LPN Service: ? Author Type: LICENSED NURSE Type: Progress Notes Filed: 12/20/2024 21:06 Note Text: Tameka Allan is a 48 year old female who presents to follow up for Yearly Exam (CBE) and Results Pt denies breast pain, redness, left breast nipple drainage and palpable masses. Pt c/o muscle spasms of right back and right shoulder. Pt to discuss massages. Subha Milton LPN [facility] 11-08-2024 History of Presen t illness Narrative Radiology Service Progress Note PATIENT NAME: Tameka Allan DATE OF SERVICE: November 08, 2024 TIME: 1:28 PM PATIENT IDENTITY VERIFICATION COMPLETED USING TWO (2) IDENTIFIERS: Name and Date of confirmed by patient verbally. FALL SCREENING: Has the patient had 2 falls in the last year or 1 fall with injury or currently using an Ambulatory Assistive Device (Walker, Cane, Wheelchair, Crutches, etc.)? No PATIENT GENDER DATA: Assigned female at . status: : No status: NO. PATIENT RELEVANT IMPLANT DATA REVIEWED: Not Applicable PATIENT PRESENTS WITH AN IMPLANTABLE OR ATTACHED CELL TOWER CLIMBER: No RADIOLOGY DEPARTMENT: Mammography PERIPHERAL IV DATA: Not applicable SIGNED BY: RT Page(R) November 08, 2024 1:28 PM documented in this encounter [facility] 11-08-2024 Note HNO ID: [id number] Author: SHANIQUE REAL RT(R) Service: ? Author Type: Technologist Type: Progress Notes Filed: 11/08/2024 13:29 Note Text: Radiology Service Progress Note PATIENT NAME: Tameka Allan DATE OF SERVICE: November 08, 2024 TIME: 1:28 PM PATIENT IDENTITY VERIFICATION COMPLETED USING TWO (2) IDENTIFIERS: Name and Date of confirmed by patient verbally. FALL SCREENING: Has the patient had 2 falls in the last year or 1 fall with injury or currently using an Ambulatory Assistive Device (Walker, Cane, Wheelchair, Crutches, etc.)? No PATIENT GENDER DATA: Assigned female at . status: : No status: NO. PATIENT RELEVANT IMPLANT DATA REVIEWED: Not Applicable PATIENT PRESENTS WITH AN IMPLANTABLE OR ATTACHED CELL TOWER CLIMBER: No RADIOLOGY DEPARTMENT: Mammography PERIPHERAL IV DATA: Not applicable SIGNED BY: RT Page(R) November 08, 2024 1:[address] [facility] 11-08-2024 History of Presen t illness Narrative HISTORY AND PHYSICAL Tameka Allan : 1975 REFERRING PHYSICIAN: No referring provider defined for this encounter. CHIEF COMPLAINT: Patient presents with: Cancer Surveillance: Colonoscopy consultation HPI: Tameka is a 48 year old female referred for endoscopy. Tameka notes due for colon cancer screening, family hx of colon cancer in father & personal hx of polyps(2017). Tameka denies abdominal pain.. Tameka denies diarrhea. Tameka denies constipation. Tameka denies a change in bowel habits. Tameka denies melena. Tameka denies bright red blood per rectum. Tameka denies hemorrhoids. Tameka denies heartburn. Tameka denies dysphagia. Tameka denies a history of ulcers/ peptic ulcer disease. Tameka's medical hx is significant for obesity, HALIMA c/w CPAP, T2DM and inflammatory breast cancer (2016). Tameka has undergone prior endoscopy. Last colonoscopy was 12/[address] Hanna at [facility]. Sedation:Fentanyl 100 micrograms IV, Midazolam 5 mg IV Impression: - The entire examined colon is normal. - No specimens collected. Current Outpatient Medications Medication Sig tirzepatide (MOUNJARO) 15 mg/0.5 mL pen injector Inject 15 mg subcutaneously one time a week. CPAP/BIPAP/OTHER AutoPAP 5-20 cmH2O Mask per patient preference Lifetime supplies Dx: HALIMA levonorgestrel (LILETTA) 20.1 mcg/24 hrs (6 yrs) 52 mg IUD 1 Each by INTRAUTERINE route as directed. put in at [facility] peg 3350-Electrolytes (GOLYTELY) 236-22.74-6.74 -5.86 gram suspension Take 4,000 mL by mouth one time only for 1 dose. Refer to printed prep instructions from your provider. No current facility-administered medications for this visit. 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 negative Right tibial fracture Snoring PAST SURGICAL HISTORY Procedure Laterality Date BREAST BIOPSY 07/28/2015 COLONOSCOPY FLX DX W/COLLJ SPEC WHEN PFRMD 11/19/2013 Colonoscopy COLONOSCOPY FLX DX W/COLLJ SPEC WHEN PFRMD N/A 11/22/2016 COLONOSCOPY FLX DX W/COLLJ SPEC WHEN PFRMD 12/13/2019 Colonoscopy 5 year interval EXTRACTION, ERUPTED TOOTH OR EXPOSED ROOT (ELEVATION AND/OR FORCEPS REMOVAL) 1998 wisdom teeth INSERT INTRAUTERINE DEVICE 07/05/2015, 06/22/2020 LAPAROSCOPIC CHOLECYSTECTOMY 08/30/2022 MAST MODF RAD W/AX LYMPH NOD W/WO PECT/ABELARDO MIN Right 02/05/2016 SALPINGECTOMY COMPLETE/PARTIAL UNI/BI SPX 06/22/2020 bilateral salpingectomy, sterilization, IUD insertion FAMILY HISTORY Problem Relation Age of Onset Hypertension Mother 80 in Colon Cancer Father passed in 1983 in his 50's other (precancerous breast lesion) Maternal Grandmother 80 Ovarian cancer Paternal Grandmother Other 2nd degree relative Cancer Paternal Grandfather kidney Breast Cancer Other 2nd degree relative Ovarian cancer Other Social History Tobacco Use Smoking status: Former Current packs/day: 0.00 Average packs/day: 0.3 packs/day for 11.4 years (2.8 ttl pk-yrs) Types: Cigarettes Start date: 1995 Quit date: 02/20/2007 Years since quittin.7 Passive exposure: Past Smokeless tobacco: Never Vaping Use Vaping status: Never Used Substance Use Topics Alcohol use: Yes Alcohol/week: 2.0 standard drinks of alcohol Types: 1 Glasses of wine, 1 Cans of beer per week Comment: occasional Drug use: No REVIEW OF SYMPTOMS: The review of systems data was entered by the nurse and reviewed by me SEE NURSING NOTE PHYSICAL EXAMINATION: General: The patient is 48 year old, female well nourished, well hydrated in no acute distress. The patient is oriented to time, place, and person. VITALS: Blood pressure 118/76, pulse 78, temperature 36.2 C (97.1 F), resp. rate 17, height 166.4 cm (5' 5.5), weight 103.2 kg (227 lb 9.6 oz), last menstrual period 07/05/2015, SpO2 100%. Body mass index is 37.3 kg/m . HEENT: Normal cephalic, ataumatic, pupils are equally round, sclera are anicteric, mucous membranes are moist, oropharynx is clear. Neck has no masses, asymmetry or lymphadenopathy. Respiratory: Clear to auscultation and percussion. Normal respiratory excursion and pattern. Cardiac: Examination is regular rate and rhythm. Normal S1/S2 Abdominal exam: Soft, nontender, with no palpable masses. No hepatosplenomegaly. No palpable hernias. Extremities: no clubbing, cyanosis or edema. No adenopathy. LABORATORY VALUES: As Noted RADIOLOGIC STUDIES: As Noted Assessment IMPRESSION: screen for colon cancer, family history of colon cancer in father PLAN: I have reviewed my findings with the surgeon. Will plan for lower endoscopy. We discussed the risks and benefits of the planned endoscopy. I have informed the patient that complications can occur including failure to complete the endoscopy and perforation. Tameka had the opportunity to ask questions concerning the planned endoscopy. My staff has also explained the procedure to the patient in understandable terms and has given the patient printed material concerning the procedure. Tameka freely consents to surgery. I plan to use Golytely bowel preparation I have explained to the patient the difference between IV conscious sedation and MAC anesthesia - and I have offered either, according to the patient's wishes. I have explained that with IV conscious sedation there is no anesthesia provider available and therefore there is a limitation of the amount of IV medications that can be given and that the patient may wake up in the middle of the procedure and/or experience pain/discomfort during the procedure. Further discussion was done and the patient was given the opportunity to ask questions and all questions were answered. Tameka chooses IV conscious sedation. Tameka was counseled that if there are changes in his/her medical condition, to let the office know if surgery should proceed. If there are changes in patient's medical condition from time of this encounter to the day of the procedure that preclude anesthesia, patient may have procedure cancelled for patient's safety. Diagnoses: (Z12.11) Screen for colon cancer (primary encounter diagnosis) (Z80.0) Family history of colon cancer in father Portions of this documentation were copied and pasted from previous office visit notes in order to provide a cohesive continuity of the history. The note has been reviewed and edited and updated as necessary. Ludy Lee APRN.CAMILLA documented in this encounter [facility] 11-08-2024 Note HNO ID: [id number] Author: LUDY LEE APRN.CNP Service: ? Author Type: Nurse Practitioner Type: Progress Notes Filed: 11/08/2024 09:47 Note Text: HISTORY AND PHYSICAL Tameka Allan : 1975 REFERRING PHYSICIAN: No referring provider defined for this encounter. CHIEF COMPLAINT: Patient presents with: Cancer Surveillance: Colonoscopy consultation HPI: Tameka is a 48 year old female referred for endoscopy. Tameka notes due for colon cancer screening, family hx of colon cancer in father AND personal hx of polyps(2017). Tameka denies abdominal pain.. Tameka denies diarrhea. Tameka denies constipation. Tameka denies a change in bowel habits. Tameka denies melena. Tameka denies bright red blood per rectum. Tameka denies hemorrhoids. Tameka denies heartburn. Tameka denies dysphagia. Tameka denies a history of ulcers/ peptic ulcer disease. Tameka's medical hx is significant for obesity, HALIMA c/w CPAP, T2DM and inflammatory breast cancer (2016). Tameka has undergone prior endoscopy. Last colonoscopy was 12/[address] Hanna at [facility]. Sedation:Fentanyl 100 micrograms IV, Midazolam 5 mg IV Impression: - The entire examined colon is normal. - No specimens collected. Current Outpatient Medications Medication Sig tirzepatide (MOUNJARO) 15 mg/0.5 mL pen injector Inject 15 mg subcutaneously one time a week. CPAP/BIPAP/OTHER AutoPAP 5-20 cmH2O Mask per patient preference Lifetime supplies Dx: HALIMA levonorgestrel (LILETTA) 20.1 mcg/24 hrs (6 yrs) 52 mg IUD 1 Each by INTRAUTERINE route as directed. put in at [facility] peg 3350-Electrolytes (GOLYTELY) 236-22.74-6.74 -5.86 gram suspension Take 4,000 mL by mouth one time only for 1 dose. Refer to printed prep instructions from your provider. No current facility-administered medications for this visit. 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 Right tibial fracture Snoring PAST SURGICAL HISTORY Procedure Laterality Date BREAST BIOPSY 07/28/2015 COLONOSCOPY FLX DX W/COLLJ SPEC WHEN PFRMD 11/19/2013 Colonoscopy COLONOSCOPY FLX DX W/COLLJ SPEC WHEN PFRMD N/A 11/22/2016 COLONOSCOPY FLX DX W/COLLJ SPEC WHEN PFRMD 12/13/2019 Colonoscopy 5 year interval EXTRACTION, ERUPTED TOOTH OR EXPOSED ROOT (ELEVATION AND/OR FORCEPS REMOVAL) 1998 wisdom teeth INSERT INTRAUTERINE DEVICE 07/05/2015, 06/22/2020 LAPAROSCOPIC CHOLECYSTECTOMY 08/30/2022 MAST MODF RAD W/AX LYMPH NOD W/WO PECT/ABELARDO MIN Right 02/05/2016 SALPINGECTOMY COMPLETE/PARTIAL UNI/BI SPX 06/22/2020 bilateral salpingectomy, sterilization, IUD insertion FAMILY HISTORY Problem Relation Age of Onset Hypertension Mother 80 in '24 Colon Cancer Father passed in 1983 in his 50's other (precancerous breast lesion) Maternal Grandmother 80 Ovarian cancer Paternal Grandmother Other 2nd degree relative Cancer Paternal Grandfather kidney Breast Cancer Other 2nd degree relative Ovarian cancer Other Social History Tobacco Use Smoking status: Former Current packs/day: 0.00 Average packs/day: 0.3 packs/day for 11.4 years (2.8 ttl pk-yrs) Types: Cigarettes Start date: 1995 Quit date: 02/20/2007 Years since quittin.7 Passive exposure: Past Smokeless tobacco: Never Vaping Use Vaping status: Never Used Substance Use Topics Alcohol use: Yes Alcohol/week: 2.0 standard drinks of alcohol Types: 1 Glasses of wine, 1 Cans of beer per week Comment: occasional Drug use: No REVIEW OF SYMPTOMS: The review of systems data was entered by the nurse and reviewed by me SEE NURSING NOTE PHYSICAL EXAMINATION: General: The patient is 48 year old, female well nourished, well hydrated in no acute distress. The patient is oriented to time, place, and person. VITALS: Blood pressure 118/76, pulse 78, temperature 36.2 ?C (97.1 ?F), resp. rate 17, height 166.4 cm (5' 5.5), weight 103.2 kg (227 lb 9.6 oz), last menstrual period 07/05/2015, SpO2 100%. Body mass index is 37.3 kg/m?. HEENT: Normal cephalic, ataumatic, pupils are equally round, sclera are anicteric, mucous membranes are moist, oropharynx is clear. Neck has no masses, asymmetry or lymphadenopathy. Respiratory: Clear to auscultation and percussion. Normal respiratory excursion and pattern. Cardiac: Examination is regular rate and rhythm. Normal S1/S2 Abdominal exam: Soft, nontender, with no palpable masses. No hepatosplenomegaly. No palpable hernias. Extremities: no clubbing, cyanosis or edema. No adenopathy. LABORATORY VALUES: As Noted RADIOLOGIC STUDIES: As Noted Assessment IMPRESSION: screen for colon cancer, family history of colon cancer in father PLAN: I have reviewed my findings with the surgeon. Will plan for lower endoscopy. Dany lou (more content not included)... [facility] 10-22-2024 Instructions Lenore Morelos APRN.MANAGER BUSINESS PLANNING - 10/22/2024 9:35 AM EST Images from the original note were not included. Dear Jacki Jerrell It was a pleasure to care for you today: Here are today's highlights: Nutrition: Continue low carb and low sugar Continue protein 60-80 grams Water continue 60-80 ounces Dietary fiber Activity: Increase cardio Chair exercises Chair yoga Water aerobics Walking Light weight Medications: Mounjaro 15 mg weekly injection TIRZEPATIDE (MOUNJARO) Tirzepatide (Mounjaro) is a new combination drug (mimics 2 gut hormones, GLP1 and GIP) which has demonstrated superior weight loss >20% body wt loss after 72 week randomized controlled study. It's only approved for diabetes currently, but likely will have approval for weight/obesity next year. Below is more information on it as we discussed. Tirzepatide delays gastric emptying and has the potential to alter absorption of oral medications. This is important in patients taking narrow therapeutic index drugs or drugs that need a minimum blood level for efficacy. If you are taking oral contraceptives switch to a non-oral contraceptive method or add a barrier contraceptive method for 4 weeks after initiation of tirzepatide and for 4 weeks after each dose escalation. Video Instructions for Injecting Mounjaro: https://www.Your Last Chance.com/watch?v= nxnhBdyTSZ0 Link to Size Stamper Website Open Energi Medication Guide: https://pi.[employer].IndustryTrader.com/us/mounjaro -us-mg.pdf?s=mg Written pen instructions: https://uspl.[employer].com/mounjaro/ mounjaro.html#ug0 Tirzepatide: Patient drug information What is Mounjaro? Mounjaro is an injectable prescription medicine that is used along with diet and exercise to improve blood sugar (glucose) in adults with type 2 diabetes mellitus. It is not known if Mounjaro can be used in people who have had inflammation of the pancreas (pancreatitis). Mounjaro is not for use in people with type 1 diabetes. It is not known if Mounjaro is safe and effective for use in children under 18 years of age. It works in multiple ways. It helps: - THE BODY RELEASE INSULIN WHEN BLOOD SUGAR IS HIGH - THE BODY REMOVE EXCESS SUGAR FROM THE BLOOD - STOP THE LIVER FROM MAKING AND RELEASING TOO MUCH SUGAR - REDUCE HOW MUCH FOOD IS EATEN - SLOW DOWN HOW QUICKLY FOOD LEAVES THE STOMACH. THIS LESSENS OVER TIME. You can learn about possible side effects of Mounjaro here. Select Safety Information Changes in vision. Tell your healthcare provider if you have changes in vision during treatment with Mounjaro PURPOSE AND SAFETY SUMMARY WITH WARNINGS Important Facts About Mounjaro ([id number]). It is also known as tirzepatide. Mounjaro is an injectable prescription medicine for adults with type 2 diabetes used along with diet and exercise to improve blood sugar (glucose). It is not known if Mounjaro can be used in people who have had inflammation of the pancreas (pancreatitis). Mounjaro is not for use in people with type 1 diabetes. It is not known if Mounjaro is safe and effective for use in children under 18 years of age. Warnings Mounjaro may cause tumors in the thyroid, including thyroid cancer. Watch for possible symptoms, such as a lump or swelling in the neck, hoarseness, trouble swallowing, or shortness of breath. If you have a symptom, tell your healthcare provider. Do not use Mounjaro if you or any of your family have ever had a type of thyroid cancer called medullary thyroid carcinoma (MTC). Do not use Mounjaro if you have Multiple Endocrine Neoplasia syndrome type 2 (MEN 2). Do not use Mounjaro if you are allergic to tirzepatide or any of the ingredients in Mounjaro. Mounjaro may cause serious side effects, including: Inflammation of the pancreas (pancreatitis). Stop using Mounjaro and call your healthcare provider right away if you have severe pain in your stomach area (abdomen) that will not go away, with or without vomiting. You may feel the pain from your abdomen to your back. Low blood sugar (hypoglycemia). Your risk for getting low blood sugar may be higher if you use Mounjaro with another medicine that can cause low blood sugar, such as a sulfonylurea or insulin. Signs and symptoms of low blood sugar may include dizziness or light-headedness, sweating, confusion or drowsiness, headache, blurred vision, slurred speech, shakiness, fast heartbeat, anxiety, irritability, or mood changes, hunger, weakness and feeling jittery. Serious allergic reactions. Stop using Mounjaro and get medical help right away if you have any symptoms of a serious allergic reaction, including swelling of your face, lips, tongue or throat, problems breathing or swallowing, severe rash or itching, fainting or feeling dizzy, and very rapid heartbeat. Kidney problems (kidney failure). In people who have kidney problems, diarrhea, nausea, and vomiting may cause a loss of fluids (dehydration), which may cause kidney problems to get worse. It is important for you to drink fluids to help reduce your chance of dehydration. Severe stomach problems. Stomach problems, sometimes severe, have been reported in people who use Mounjaro. Tell your healthcare provider if you have stomach problems that are severe or will not go away. Changes in vision. Tell your healthcare provider if you have changes in vision during treatment with Mounjaro. Gallbladder problems. Gallbladder problems have happened in some people who use Mounjaro. Tell your healthcare provider right away if you get symptoms of gallbladder problems, which may include pain in your upper stomach (abdomen), fever, yellowing of skin or eyes (jaundice), and mike-colored stools. Common side effects The most common side effects of Mounjaro include nausea, diarrhea, decreased appetite, vomiting, constipation, indigestion, and stomach (abdominal) pain. These are not all the possible side effects of Mounjaro. Talk to your healthcare provider about any side effect that bothers you or doesn't go away. Tell your healthcare provider if you have any side effects. You can report side effects at 8-609-PRD-6054 or www.fda.gov/medwatch. Before using Your healthcare provider should show you how to use Mounjaro before you use it for the first time. Before you use Mounjaro, talk to your healthcare provider about low blood sugar and how to manage it. Review these questions with your healthcare provider: Do you have other medical conditions, including problems with your pancreas or kidneys, or severe problems with your stomach, such as slowed emptying of your stomach (gastroparesis) or problems digesting food? Do you take other diabetes medicines, such as insulin or sulfonylureas? Do you have a history of diabetic retinopathy? Are you or plan to become or or plan to breastfeed? It is not known if Mounjaro will harm your unborn baby. Do you take control pills by mouth? These may not work as well while using Mounjaro. Your healthcare provider may recommend another type of control when you start Mounjaro or when you increase your dose. Do you take any other prescription medicines or cdgq-jiw-mudyzor drugs, vitamins, or herbal supplements? How to take Read the Instructions for Use that come with Mounjaro. Use Mounjaro exactly as your healthcare provider says. Mounjaro is injected under the skin (subcutaneously) of your stomach (abdomen), thigh, or upper arm. Use Mounjaro 1 time each week, at any time of the day. Do not mix insulin and Mounjaro together in the same injection. If you take too much Mounjaro, call your healthcare provider or seek medical advice promptly. Learn more For more information, call 7-175-MnhynRh ( ) or go to www.The Local. This information does not take the place of talking with your healthcare provider. Be sure to talk to your healthcare provider about Mounjaro and how to take it. Your healthcare provider is the best person to help you decide if Mounjaro is right for you. Mounjaro and its delivery device base are trademarks owned or licensed by [facility], its subsidiaries, or affiliates. NIGEL MOSER [employer] FEBRUARY2022 Access ethority Online for additional drug information, tools, and databases. Copyright 2578-3143 [employer]. All rights reserved. Contributor Disclosures (For additional information see Tirzepatide: Drug information) You must carefully read the Consumer Information Use and Disclaimer below in order to understand and correctly use this information. Brand Names: [place] Mounjaro Warning This drug has been shown to cause thyroid cancer in some animals. It is not known if this happens in humans. If thyroid cancer happens, it may be deadly if not found and treated early. Call your doctor right away if you have a neck mass, trouble breathing, trouble swallowing, or have hoarseness that will not go away. Do not use this drug if you have a health problem called Multiple Endocrine Neoplasia syndrome type 2 (MEN 2), or if you or a family member have had thyroid cancer. Have your blood work checked and thyroid ultrasounds as you have been told by your doctor. What is this drug used for? It is used to lower blood sugar in patients with high blood sugar (diabetes). What do I need to tell my doctor BEFORE I take this drug? If you are allergic to this drug; any part of this drug; or any other drugs, foods, or substances. Tell your doctor about the allergy and what signs you had. If you have type 1 diabetes. Do not use this drug to treat type 1 diabetes. If you have ever had pancreatitis. If you have stomach or bowel problems. This is not a list of all drugs or health problems that interact with this drug. Tell your doctor and pharmacist about all of your drugs (prescription or OTC, natural products, vitamins) and health problems. You must check to make sure that it is safe for you to take this drug with all of your drugs and health problems. Do not start, stop, or change the dose of any drug without checking with your doctor. What are some things I need to know or do while I take this drug? Tell all of your health care providers that you take this drug. This includes your doctors, nurses, pharmacists, and dentists. Wear disease medical alert ID (identification). Follow the diet and workout plan that your doctor told you about. Check your blood sugar as you have been told by your doctor. Do not drive if your blood sugar has been low. There is a greater chance of you having a crash. control pills may not work as well to prevent . If you take control pills, you may need to switch to another type of hormone-based control like a vaginal ring if your doctor tells you to. If another type of hormone-based control is not an option, use some other kind of control also, like a condom. Do this for 4 weeks after starting this drug and for 4 weeks each time the dose is raised. This drug may prevent other drugs taken by mouth from getting into the body. If you take other drugs by mouth, you may need to take them at some other time than this drug. Talk with your doctor. It may be harder to control blood sugar during times of stress such as fever, infection, injury, or surgery. A change in physical activity, exercise, or diet may also affect blood sugar. Talk with your doctor before you drink alcohol. Do not share with another person even if the needle has been changed. Sharing your tray or pen may pass infections from one person to another. This includes infections you may not know you have. If you cannot drink liquids by mouth or if you have upset stomach, throwing up, or diarrhea that does not go away; you need to avoid getting dehydrated. Contact your doctor to find out what to do. Dehydration may lead to new or worse kidney problems. A severe and sometimes deadly pancreas problem (pancreatitis) has happened with other drugs like this one. Tell your doctor if you are , plan on getting , or are breast-feeding. You will need to talk about the benefits and risks to you and the baby. What are some side effects that I need to call my doctor about right away? WARNING/CAUTION: Even though it may be rare, some people may have very bad and sometimes deadly side effects when taking a drug. Tell your doctor or get medical help right away if you have any of the following signs or symptoms that may be related to a very bad side effect: Signs of an allergic reaction, like rash; hives; itching; red, swollen, blistered, or peeling skin with or without fever; wheezing; tightness in the chest or throat; trouble breathing, swallowing, or talking; unusual hoarseness; or swelling of the mouth, face, lips, tongue, or throat. Signs of kidney problems like unable to pass urine, change in how much urine is passed, blood in the urine, or a big weight gain. Signs of gallbladder problems like pain in the upper right belly area, right shoulder area, or between the shoulder blades; yellow skin or eyes; fever with chills; bloating; or very upset stomach or throwing up. Signs of a pancreas problem (pancreatitis) like very bad stomach pain, very bad back pain, or very bad upset stomach or throwing up. Dizziness or passing out. A fast heartbeat. Change in eyesight. Low blood sugar can happen. The chance may be raised when this drug is used with other drugs for diabetes. Signs may be dizziness, headache, feeling sleepy or weak, shaking, fast heartbeat, confusion, hunger, or sweating. Call your doctor right away if you have any of these signs. Follow what you have been told to do for low blood sugar. This may include taking glucose tablets, liquid glucose, or some fruit juices. What are some other side effects of this drug? All drugs may cause side effects. However, many people have no side effects or only have minor side effects. Call your doctor or get medical help if any of these side effects or any other side effects bother you or do not go away: Constipation, diarrhea, stomach pain, upset stomach, throwing up, or feeling less hungry. Heartburn. These are not all of the side effects that may occur. If you have questions about side effects, call your doctor. Call your doctor for medical advice about side effects. You may report side effects to your national health agency. How is this drug best taken? Use this drug as ordered by your doctor. Read all information given to you. Follow all instructions closely. It is given as a shot into the fatty part of the skin on the top of the thigh, belly area, or upper arm. If you will be giving yourself the shot, your doctor or nurse will teach you how to give the shot. Keep taking this drug as you have been told by your doctor or other health care provider, even if you feel well. Take the same day each week. Move site where you give the shot each time. Take with or without food. Wash your hands before and after use. Do not use if the solution is leaking or has particles. This drug is colorless to a faint yellow. Do not use if the solution changes color. If you are also using insulin, you may inject this drug and the insulin in the same area of the body but not right next to each other. Do not mix this drug in the same syringe with insulin. Do not move this drug from the pen to a syringe. Each pen is for one use only. Throw away any part of the used pen after the dose is given. Throw away needles in a needle/sharp disposal box. Do not reuse needles or other items. When the box is full, follow all local rules for getting rid of it. Talk with a doctor or pharmacist if you have any questions. What do I do if I miss a dose? If it is within 4 days after the missed dose, take the missed dose and go back to your normal day. If it has been more than 4 days since the missed dose, skip the missed dose and go back to your normal day. Do not take 2 doses at the same time or extra doses. How do I store and/or throw out this drug? Store in a refrigerator. Do not freeze. Do not use if it has been frozen. If needed, each pen may be stored at room temperature for up to 21 days. If you store at room temperature, throw away any part not used after 21 days. Protect from heat. Store in the original container to protect from light. Keep all drugs in a safe place. Keep all drugs out of the reach of children and pets. Throw away unused or drugs. Do not flush down a toilet or pour down a drain unless you are told to do so. Check with your pharmacist if you have questions about the best way to throw out drugs. There may be drug take-back programs in your area. General drug facts If your symptoms or health problems do not get better or if they become worse, call your doctor. Do not share your drugs with others and do not take anyone else's drugs. Some drugs may have another patient information leaflet. If you have any questions about this drug, please talk with your doctor, nurse, pharmacist, or other health care provider. If you think there has been an overdose, call your poison control center or get medical care right away. Be ready to tell or show what was taken, how much, and when it happened. Last Reviewed [id number] Consumer Information Use and Disclaimer This generalized information is a limited summary of diagnosis, treatment, and/or medication information. It is not meant to be comprehensive and should be used as a tool to help the user understand and/or assess potential diagnostic and treatment options. It does NOT include all information about conditions, treatments, medications, side effects, or risks that may apply to a specific patient. It is not intended to be medical advice or a substitute for the medical advice, diagnosis, or treatment of a health care provider based on the health care provider's examination and assessment of a patient's specific and unique circumstances. Patients must speak with a health care provider for complete information about their health, medical questions, and treatment options, including any risks or benefits regarding use of medications. This information does not endorse any treatments or medications as safe, effective, or approved for treating a specific patient. [employer] and its affiliates disclaim any warranty or liability relating to this information or the use thereof. The use of this information is governed by the Terms of Use, available at https://www.[employer].com/en /know/oeiyhngg-lxfjqiasemxlj-all ms. Education included discussing thyroid C-cell tumor risk including Medullary Thyroid Carcinoma (MTC).Though studies have shown increased risk of medullary cell cancers only in rats. Patient denies family history of MTC and Multiple Endocrine Neoplasia Syndrome type 2 (MEN 2). I discussed that this medication is associated with acute pancreatitis, including fatal and non-fatal hemorrhagic or necrotizing pancreatitis. Pt does not have a hx of pancreatitis. Educated patient to monitor for signs such as persistent severe abdominal pain, sometimes radiating to the back, with or without vomiting. If this occurs, stop medication immediately and go to ER. The most common adverse reactions include nausea, vomiting, diarrhea, constipation and injection site erythema. These may dissipate over time. Helpful tip GLP-1 RA increases beta cell proliferation. documented in this encounter [facility] 10-22-2024 History of Presen t illness Narrative Obesity Medicine Followup Note This Team Access Model visit is a virtual visit. It required patient-provider interaction for the medical decision making as documented below. Consent was obtained to complete today's distance health visit. I have communicated my name and active licensure. The patient's identity and physical location were verified at the time of this visit. Either the patient or their legal representative phlebotomy services has been informed of the risks and benefits of -- and alternatives to -- treatment through a remote evaluation and consents to proceed with the evaluation remotely. 10/22/24 Patient HPI: is 48 year old Female who presents with diagnosis of class III severe obesity with PMH inflammatory breast cancer on the right, and Type 2 diabetes mellitus for follow-up evaluation of her obesity and related complications. In our previous visits we have outlined an individualized lifestyle intervention including a personalized nutrition recommendations and physical activity optimization. Tameka Allan is here today for follow up evaluation for non surgical metabolic weight loss management. her last office visit was3 month(s) ago with advanced practice registered nurse. Weight loss since last visit: Goal weight 160 Today's weight: 219.9 lbs Last weight: 229 BMI: 36.02 Today's concerns: Mounaline has been on backorder Stopped metformin Current Obesity Medications: Mounjaro 15 mg subcutaneous weekly injection Reports minimal cravings Blood sugar controlled No side effects Decreased appetite Exercise Freq- continues with steps and walking, and running program at work and with dog and joined video HIT classes and weight training; walking at work Barriers- some fatigue and traveling and holidays Work-related activity: active Diet Healthy food choices Meals 3 Struggled with sugar /sweets over holiday's Stopped door dash Back on track Protein and veggies Starting with protein shake Water 60-80 ounces Snacking: healthier options Fruit and salads ?Sleep Duration (<6hr)- 6-7 hours Quality- using cpap nightly Stress Degree- moderate Cause-coping - mother /marriage PAST MEDICAL HISTORY Diagnosis Date Atypical mole Benign colon polyp BRCA negative 2014 1 & 2 Diabetes mellitus (HCC) Diabetes mellitus (HCC) Inflammatory breast cancer right breast, stage 3C- in lymphnodes- triple negative Right tibial fracture Snoring FUNCTIONAL STATUS: Walk indoors, such as around the house (1.75 METs) Do light work around the house, such as dusting or washing dishes (2.70 METs) Take care of self, that is eating, dressing, bathing, using the toilet (2.75 METs) Walk a block or two on level ground (2.75 METs) Do moderate work around the house such as vacuuming, sweeping floors, or carrying in groceries (3.50 METs) Do yardwork, such as raking leaves, weeding,or pushing a power mower (4.50 METs) Climb a flight of stairs or walk up a hill (5.50 METs) Review of Systems: Review of Systems Constitutional: Negative. HENT: Negative. Eyes: No hx of glaucoma Respiratory: Negative. Cardiovascular: Negative. Gastrointestinal: Had some sl diarrhea when on vacation; Tracking food Dietary fiber Endocrine: No hx of hypothyroidism Genitourinary: No renal stones Musculoskeletal: Negative. Skin: Negative. Allergic/Immunologic: Negative. Neurological: Negative. Hematological: Negative. Psychiatric/Behavioral: Negative. PAST SURGICAL HISTORY Procedure Laterality Date BREAST BIOPSY 07/28/2015 COLONOSCOPY FLX DX W/COLLJ SPEC WHEN PFRMD 11/19/2013 Colonoscopy COLONOSCOPY FLX DX W/COLLJ SPEC WHEN PFRMD N/A 11/22/2016 COLONOSCOPY FLX DX W/COLLJ SPEC WHEN PFRMD 12/13/2019 Colonoscopy 5 year interval EXTRACTION, ERUPTED TOOTH OR EXPOSED ROOT (ELEVATION AND/OR FORCEPS REMOVAL) 1998 wisdom teeth INSERT INTRAUTERINE DEVICE 07/05/2015, 06/22/2020 LAPAROSCOPIC CHOLECYSTECTOMY 08/30/2022 MAST MODF RAD W/AX LYMPH NOD W/WO PECT/ABELARDO MIN Right 02/05/2016 SALPINGECTOMY COMPLETE/PARTIAL UNI/BI SPX 06/22/2020 bilateral salpingectomy, sterilization, IUD insertion Social History Tobacco Use Smoking status: Former Current packs/day: 0.00 Average packs/day: 0.3 packs/day for 11.4 years (2.8 ttl pk-yrs) Types: Cigarettes Start date: 1995 Quit date: 02/20/2007 Years since quittin.6 Smokeless tobacco: Never Vaping Use Vaping status: Never Used Substance Use Topics Alcohol use: Yes Alcohol/week: 2.0 standard drinks of alcohol Types: 1 Cans of beer, 1 Glasses of wine per week Comment: occassional, social Drug use: No PE- virtual visit Wt 99.7 kg (219 lb 14.4 oz) LMP 07/05/2015 (Exact Date) BMI 36.02 kg/m Physical Exam Vitals reviewed. Constitutional: Appearance: Normal appearance. Neurological: General: No focal deficit present. Mental Status: She is alert and oriented to person, place, and time. Mental status is at baseline. Psychiatric: Mood and Affect: Mood normal. Behavior: Behavior normal. Thought Content: Thought content normal. Judgment: Judgment normal. Results No visits with results within 3 Month(s) from this visit. Latest known visit with results is: Appointment on 02/10/2023 Component Date Value Ref Range Status Hemoglobin A1C 02/10/2023 5.0 4.3 - 5.6 % Final Estimated Average Glucose 02/10/2023 97 mg/dL Final Vitamin D 25 Hydroxy 02/10/2023 55.0 31.0 - 80.0 ng/mL Final Cholesterol, Total 02/10/2023 187 <200 mg/dL Final Triglyceride 02/10/2023 125 <150 mg/dL Final HDL Cholesterol 02/10/2023 39 (L) >39 mg/dL Final Non HDL Cholesterol 02/10/2023 148 (H) <130 mg/dL Final Fasting Time 02/10/2023 12 hrs Final VLDL Cholesterol 02/10/2023 25 <30 mg/dL Final TC:HDL Ratio 02/10/2023 4.79 <5.10 Final LDL Cholesterol 02/10/2023 123 (H) <100 mg/dL Final LDL:HDL Ratio 02/10/2023 3.15 (H) <2.54 Final Protein, Total 02/10/2023 7.4 6.3 - 8.0 g/dL Final Albumin 02/10/2023 4.2 3.9 - 4.9 g/dL Final Calcium, Total 02/10/2023 8.8 8.5 - 10.2 mg/dL Final Bilirubin, Total 02/10/2023 0.4 0.2 - 1.3 mg/dL Final Alkaline Phosphatase 02/10/2023 46 34 - 123 U/L Final AST 02/10/2023 14 13 - 35 U/L Final ALT 02/10/2023 21 7 - 38 U/L Final Glucose 02/10/2023 97 74 - 99 mg/dL Final BUN 02/10/2023 11 7 - 21 mg/dL Final Creatinine 02/10/2023 0.80 0.58 - 0.96 mg/dL Final Sodium 02/10/2023 138 136 - 144 mmol/L Final Potassium 02/10/2023 4.0 3.7 - 5.1 mmol/L Final Chloride 02/10/2023 104 97 - 105 mmol/L Final CO2 02/10/2023 24 22 - 30 mmol/L Final Anion Gap 02/10/2023 10 9 - 18 mmol/L Final Estimated Glomerular Filtration Ra* 02/10/2023 93 >=60 mL/min/1.73m Final WBC 02/10/2023 11.03 (H) 3.70 - 11.00 k/uL Final RBC 02/10/2023 4.77 3.90 - 5.20 m/uL Final Hemoglobin 02/10/2023 15.0 11.5 - 15.5 g/dL Final Hematocrit 02/10/2023 43.0 36.0 - 46.0 % Final MCV 02/10/2023 90.1 80.0 - 100.0 fL Final MCH 02/10/2023 31.4 26.0 - 34.0 pg Final MCHC 02/10/2023 34.9 30.5 - 36.0 g/dL Final RDW-CV 02/10/2023 12.6 11.5 - 15.0 % Final Platelet Count 02/10/2023 240 150 - 400 k/uL Final MPV 02/10/2023 9.8 9.0 - 12.7 fL Final Neutrophils % 02/10/2023 65.9 % Final Abs Neut 02/10/2023 7.26 1.45 - 7.50 k/uL Final Lymphocytes % 02/10/2023 23.4 % Final Abs Lymph 02/10/2023 2.58 1.00 - 4.00 k/uL Final Monocytes % 02/10/2023 7.5 % Final Abs Richardson 02/10/2023 0.83 <0.87 k/uL Final Eosinophils % 02/10/2023 2.1 % Final Abs Eosin 02/10/2023 0.23 <0.46 k/uL Final Basophils % 02/10/2023 0.5 % Final Abs Baso 02/10/2023 0.06 <0.11 k/uL Final Immature Granulocytes % 02/10/2023 0.6 % Final Abs Immature Gran 02/10/2023 0.07 <0.10 k/uL Final NRBC 02/10/2023 0.0 /100 WBC Final Absolute nRBC 02/10/2023 <0.01 <0.01 k/uL Final Diff Type 02/10/2023 Auto Final Impression: 48 year old female with a a diagnosis of class 3 obesity here for non surgical metabolic weight loss management. Body mass index is 36.02 kg/m . Assessment/Plan: ASSESSMENT/PLAN: 1. Class 3 severe obesity with serious comorbidity in adult, unspecified BMI, unspecified obesity type (HCC) - ICD9: 278.01, ICD10: E66.813, E66.01 (primary diagnosis) Weight decreasing - Behavioral and pharmacological intervention Patient continues to do well with her weight loss journey she has lost an additional 10 pounds patient continues with low-carb low sugar foods I have discussed with patient to continue techniques to manage maladaptive eating behaviors and ensure protein at least 60 to 80 g daily and continue fruits vegetables and her water at least 60 to 80 ounces daily. I have strongly encouraged the patient to increase her activity we discussed several options as well as this will help the patient to increase her cardio to increase her metabolism for weight loss. At this time I reviewed several medications to help patient with her blood sugars, her weight, her appetite and we have agreed upon the following: Continue Mounjaro 15 mg subcutaneous weekly injection Education included discussing thyroid C-cell tumor risk including Medullary Thyroid Carcinoma (MTC).Though studies have shown increased risk of medullary cell cancers only in rats. Patient denies family history of MTC and Multiple Endocrine Neoplasia Syndrome type 2 (MEN 2). I discussed that this medication is associated with acute pancreatitis, including fatal and non-fatal hemorrhagic or necrotizing pancreatitis. Pt does not have a hx of pancreatitis. Educated patient to monitor for signs such as persistent severe abdominal pain, sometimes radiating to the back, with or without vomiting. If this occurs, stop medication immediately and go to ER. The most common adverse reactions include nausea, vomiting, diarrhea, constipation and injection site erythema. These may dissipate over time. Helpful tip GLP-1 RA increases beta cell proliferation. 2. Dietary counseling and surveillance - ICD9: V65.3, ICD10: Z71.3 Reviewed principles of energy metabolism caloric intake and expenditure and rationale for treatment program. Also reinforced need for reduced calorie low-fat nutrition and increase physical activity. 3. BMI 40.0-44.9, adult (HCC) - ICD9: V85.41, ICD10: Z68.41 Weight decreasing - Behavioral and pharmacological intervention 4. Inflammatory breast cancer, right (HCC) - ICD9: 174.9, ICD10: C50.911 Continue follow-up with hematology oncology 5. Type 2 diabetes mellitus with other specified complication, without long-term current use of insulin (HCC) - ICD9: 250.80, ICD10: E11.69 - Improving control - Continue current medications - Counseled on healthy diet and regular exercise - Discussed need for and benefit of weight loss. BMI 36.02 kg/(m^2) - Discussed diabetic education issues of diabetes complications and monitoring required, hypoglycemic/hyperglycemic symptoms, medication-specific side effects and monitoring, and diabetic sick day rules 6. HALIMA (obstructive sleep apnea) - ICD9: 327.23, ICD10: G47.33 Encourage patient to continue CPAP nightly Lenore Morelos, SYDNEE.MA[employer] Patient is doing well otherwise, continues lifestyle modification. Patient remains motivated to lose weight. This note was partially generated using [employer] voice recognition system, and there may be some incorrect words, spellings, and punctuation that were not noted in checking the note before saving. -- We discussed several strategies to track food intake and increase mindfulness around eating. We will start with a self-directed attempt in combination with the above recommendations. -- Encouraged consistency of exercise, with an overall goal of 200 minutes per week. This dose of exercise has been effective in weight loss and maintenance. We discussed that cardiovascular exercise is most beneficial for weight loss initially, but it is important to combine resistance training as there is a loss of lean muscle mass with weight loss. Lneore Morelos APRN DNP BMI Obesity Medicine I spent a total of 30 minutes on the date of the service which included preparing to see the patient, [id number] patient care, completing clinical documentation, obtaining and/or reviewing separately obtained history, performing a medically appropriate examination, counseling and educating the patient/family/caregiver, ordering medications, tests, or procedures, communicating with other HCPs (not separately reported), independently interpreting results (not separately reported), communicating results to the patient/family/caregiver, and care coordination (not separately reported) 5A's- Assess: I assessed behavioral health risk/factors affecting --- Asked about/assess behavioral health risk(s) and factors affecting choice of behavior change goals --- somewhat sedentry lifestyle ---?snacking ---Lack of exercise Advise: clear, specific, personalized behavior change advice. ---I gave very clear, specific, and personalized behavior change adviced, including information about personal health harms and benefits. Agree: Patient agrees with selected appropriate treatment goals and methods to change behavior Assist: Provided IBT w self-help, handouts, teaching skills and support Using behavior change techniques with self-help and Counseling in achieving Goals. Also discussed supplementing with adjunctive medical treatments when appropriate. Arrange: follow up scheduled, handouts given to patient. documented in this encounter [facility] 10-22-2024 Note HNO ID: [id number] Author: LENORE MORELOS APRN.CNP Service: ? Author Type: Nurse Practitioner Type: Progress Notes Filed: 10/22/2024 17:23 Note Text: Obesity Medicine Followup Note This Team Access Model visit is a virtual visit. It required patient-provider interaction for the medical decision making as documented below. Consent was obtained to complete today's distance health visit. I have communicated my name and active licensure. The patient's identity and physical location were verified at the time of this visit. Either the patient or their legal representative phlebotomy services has been informed of the risks and benefits of -- and alternatives to -- treatment through a remote evaluation and consents to proceed with the evaluation remotely. 10/22/24 Patient HPI: is 48 year old Female who presents with diagnosis of class III severe obesity with PMH inflammatory breast cancer on the right, and Type 2 diabetes mellitus for follow-up evaluation of her obesity and related complications. In our previous visits we have outlined an individualized lifestyle intervention including a personalized nutrition recommendations and physical activity optimization. Tameka Allan is here today for follow up evaluation for non surgical metabolic weight loss management. her last office visit was3 month(s) ago with advanced practice registered nurse. Weight loss since last visit: Goal weight 160 Today's weight: 219.9 lbs Last weight: 229 BMI: 36.02 Today's concerns: Mounjaro has been on backorder Stopped metformin Current Obesity Medications: Mounjaro 15 mg subcutaneous weekly injection Reports minimal cravings Blood sugar controlled No side effects Decreased appetite Exercise Freq- continues with steps and walking, and running program at work and with dog and joined video HIT classes and weight training; walking at work Barriers- some fatigue and traveling and holidays Work-related activity: active Diet Healthy food choices Meals 3 Struggled with sugar /sweets over holiday's Stopped door dash Back on track Protein and veggies Starting with protein shake Water 60-80 ounces Snacking: healthier options Fruit and salads ?Sleep Duration (<6hr)- 6-7 hours Quality- using cpap nightly Stress Degree- moderate Cause-coping - mother /marriage PAST MEDICAL HISTORY Diagnosis Date Atypical mole Benign colon polyp BRCA negative 2014 1 AND 2 Diabetes mellitus (HCC) Diabetes mellitus (HCC) Inflammatory breast cancer right breast, stage 3C- in lymphnodes- triple negative Right tibial fracture Snoring FUNCTIONAL STATUS: Walk indoors, such as around the house (1.75 METs) Do light work around the house, such as dusting or washing dishes (2.70 METs) Take care of self, that is eating, dressing, bathing, using the toilet (2.75 METs) Walk a block or two on level ground (2.75 METs) Do moderate work around the house such as vacuuming, sweeping floors, or carrying in groceries (3.50 METs) Do yardwork, such as raking leaves, weeding,or pushing a power mower (4.50 METs) Climb a flight of stairs or walk up a hill (5.50 METs) Review of Systems: Review of Systems Constitutional: Negative. HENT: Negative. Eyes: No hx of glaucoma Respiratory: Negative. Cardiovascular: Negative. Gastrointestinal: Had some sl diarrhea when on vacation; Tracking food Dietary fiber Endocrine: No hx of hypothyroidism Genitourinary: No renal stones Musculoskeletal: Negative. Skin: Negative. Allergic/Immunologic: Negative. Neurological: Negative. Hematological: Negative. Psychiatric/Behavioral: Negative. PAST SURGICAL HISTORY Procedure Laterality Date BREAST BIOPSY 07/28/2015 COLONOSCOPY FLX DX W/COLLJ SPEC WHEN PFRMD 11/19/2013 Colonoscopy COLONOSCOPY FLX DX W/COLLJ SPEC WHEN PFRMD N/A 11/22/2016 COLONOSCOPY FLX DX W/COLLJ SPEC WHEN PFRMD 12/13/2019 Colonoscopy 5 year interval EXTRACTION, ERUPTED TOOTH OR EXPOSED ROOT (ELEVATION AND/OR FORCEPS REMOVAL) 1998 wisdom teeth INSERT INTRAUTERINE DEVICE 07/05/2015, 06/22/2020 LAPAROSCOPIC CHOLECYSTECTOMY 08/30/2022 MAST MODF RAD W/AX LYMPH NOD W/WO PECT/ABELARDO MIN Right 02/05/2016 SALPINGECTOMY COMPLETE/PARTIAL UNI/BI SPX 06/22/2020 bilateral salpingectomy, sterilization, IUD insertion Social History Tobacco Use Smoking status: Former Current packs/day: 0.00 Average packs/day: 0.3 packs/day for 11.4 years (2.8 ttl pk-yrs) Types: Cigarettes Start date: 1995 Quit date: 02/20/2007 Years since quittin.6 Smokeless tobacco: Never Vaping Use Vaping status: Never Used Substance Use Topics Alcohol use: Yes Alcohol/week: 2.0 standard drinks of alcohol Types: 1 Cans of beer, 1 Glasses of wine per week Comment: occassional, social Drug use: No PE- virtual visit Wt 99.7 kg (219 lb 14.4 oz) LMP 07/05/2015 (Exact Date) BMI 36.02 kg/m? Physical Exam Vitals reviewed. Constitutional: (more content not included)... [facility] 10-18-2024 Telephone encounter Note Pharmacy requesting the following refill Refill(s) Requested: Requested Prescriptions Pending Prescriptions Disp Refills MOUNJARO 15 mg/0.5 mL pen injector [Pharmacy Med Name: MOUNJARO 15 MG/0.5 ML PEN] Sig: INJECT 15 MG SUBCUTANEOUSLY ONE TIME A WEEK. ALLERGIES Allergen Reactions Seasonal Allergies Unknown (home) [phone] (work) [phone] (cell) Last Office Visit Date: 02/09/2024 Last Distance [facility] Visit: 05/19/2024 Future Appointment: 10/22/2024 The patients preferred pharmacy has been captured for this encounter? yes Request is for script(s) to be escript to pharmacy. Dara Muir LPN [facility] Work Phone: 10-18-2024 Miscellaneous Notes Pharmacy requesting the following refill Refill(s) Requested: Requested Prescriptions Pending Prescriptions Disp Refills MOUNJARO 15 mg/0.5 mL pen injector [Pharmacy Med Name: MOUNJARO 15 MG/0.5 ML PEN] Sig: INJECT 15 MG SUBCUTANEOUSLY ONE TIME A WEEK. ALLERGIES Allergen Reactions Seasonal Allergies Unknown (home) [phone] (work) [phone] (cell) Last Office Visit Date: 02/09/2024 Last [facility] Visit: 05/19/2024 Future Appointment: 10/22/2024 The patients preferred pharmacy has been captured for this encounter? yes Request is for script(s) to be escript to pharmacy. Dara Muir LPN documented in this encounter [facility] 09-13-2024 Telephone encounter Note Pharmacy requesting the following refill Refill(s) Requested: Requested Prescriptions Pending Prescriptions Disp Refills MOUNJARO 15 mg/0.5 mL pen injector [Pharmacy Med Name: MOUNJARO 15 MG/0.5 ML PEN] Sig: INJECT 15 MG SUBCUTANEOUSLY ONE TIME A WEEK. ALLERGIES Allergen Reactions Seasonal Allergies Unknown (home) [phone] (work) [phone] (cell) Last Office Visit Date: 02/09/2024 Last [facility] Visit: 05/19/2024 Future Appointment: 10/22/2024 The patients preferred pharmacy has been captured for this encounter? yes Request is for script(s) to be escript to pharmacy. Dara Muir LPN [facility] Work Phone: 09-13-2024 Miscellaneous Notes Pharmacy requesting the following refill Refill(s) Requested: Requested Prescriptions Pending Prescriptions Disp Refills MOUNJARO 15 mg/0.5 mL pen injector [Pharmacy Med Name: MOUNJARO 15 MG/0.5 ML PEN] Sig: INJECT 15 MG SUBCUTANEOUSLY ONE TIME A WEEK. ALLERGIES Allergen Reactions Seasonal Allergies Unknown (home) [phone] (work) [phone] (cell) Last Office Visit Date: 02/09/2024 Last [facility] Visit: 05/19/2024 Future Appointment: 10/22/2024 The patients preferred pharmacy has been captured for this encounter? yes Request is for script(s) to be escript to pharmacy. Dara Muir LPN documented in this encounter [facility] 08-16-2024 Miscellaneous Notes Pharmacy requesting the following refill Refill(s) Requested: Requested Prescriptions Pending Prescriptions Disp Refills MOUNJARO 12.5 mg/0.5 mL pen injector [Pharmacy Med Name: MOUNJARO 12.5 MG/0.5 ML PEN] Sig: INJECT 12.5 MG SUBCUTANEOUSLY ONE TIME A WEEK. ALLERGIES Allergen Reactions Seasonal Allergies Unknown (home) [phone] (work) [phone] (cell) Last Office Visit Date: 02/09/2024 Last [facility] Visit: 05/19/2024 Future Appointment: 10/22/2024 The patients preferred pharmacy has been captured for this encounter? yes Request is for script(s) to be escript to pharmacy. Dara Muir LPN documented in this encounter [facility] 08-16-2024 Telephone encounter Note Pharmacy requesting the following refill Refill(s) Requested: Requested Prescriptions Pending Prescriptions Disp Refills MOUNJARO 12.5 mg/0.5 mL pen injector [Pharmacy Med Name: MOUNJARO 12.5 MG/0.5 ML PEN] Sig: INJECT 12.5 MG SUBCUTANEOUSLY ONE TIME A WEEK. ALLERGIES Allergen Reactions Seasonal Allergies Unknown (home) [phone] (work) [phone] (cell) Last Office Visit Date: 02/09/2024 Last [facility] Visit: 05/19/2024 Future Appointment: 10/22/2024 The patients preferred pharmacy has been captured for this encounter? yes Request is for script(s) to be escript to pharmacy. Dara Muir LPN [facility] Work Phone: 08-09-2024 Telephone encounter Note Patient's Pharmacy is requesting the following refill. Patient's last appointment: 05/19/2024. Next appointment: 10/22/2024 . Requested Prescriptions Pending Prescriptions Disp Refills metFORMIN ER (GLUCOPHAGE XR) 500 mg 24 hr tablet [Pharmacy Med Name: METFORMIN HCL ER 500 MG TABLET] 90 tablet 0 Sig: take 1 tablet by mouth every day with breakfast Patient Phone numbers: [phone] (home) [phone] (work) Request is for script(s) to be escript to pharmacy. Jodie Hawk LPN [facility] 08-09-2024 Miscellaneous Notes Patient's Pharmacy is requesting the following refill. Patient's last appointment: 05/19/2024. Next appointment: 10/22/2024 . Requested Prescriptions Pending Prescriptions Disp Refills metFORMIN ER (GLUCOPHAGE XR) 500 mg 24 hr tablet [Pharmacy Med Name: METFORMIN HCL ER 500 MG TABLET] 90 tablet 0 Sig: take 1 tablet by mouth every day with breakfast Patient Phone numbers: [phone] (home) [phone] (work) Request is for script(s) to be escript to pharmacy. Jodie Hawk LPN documented in this encounter [facility] 06-23-2024 Telephone encounter Note Pharmacy requesting the following refill Refill(s) Requested: Requested Prescriptions Pending Prescriptions Disp Refills MOUNJARO 10 mg/0.5 mL pen injector [Pharmacy Med Name: MOUNJARO 10 MG/0.5 ML PEN] Sig: INJECT 10 MG SUBCUTANEOUSLY ONE TIME PER WEEK ALLERGIES Allergen Reactions Seasonal Allergies Unknown (home) [phone] (work) [phone] (cell) Last Office Visit Date: 02/09/2024 Last [facility] Health Visit: 05/19/2024 Future Appointment: Visit date not found The patients preferred pharmacy has been captured for this encounter? yes Request is for script(s) to be escript to pharmacy. Dara Muir LPN [facility] Work Phone: 06-23-2024 Miscellaneous Notes Pharmacy requesting the following refill Refill(s) Requested: Requested Prescriptions Pending Prescriptions Disp Refills MOUNJARO 10 mg/0.5 mL pen injector [Pharmacy Med Name: MOUNJARO 10 MG/0.5 ML PEN] Sig: INJECT 10 MG SUBCUTANEOUSLY ONE TIME PER WEEK ALLERGIES Allergen Reactions Seasonal Allergies Unknown (home) [phone] (work) [phone] (cell) Last Office Visit Date: 02/09/2024 Last [facility] Health Visit: 05/19/2024 Future Appointment: Visit date not found The patients preferred pharmacy has been captured for this encounter? yes Request is for script(s) to be escript to pharmacy. Dara Muir LPN documented in this encounter [facility] 05-19-2024 Telephone encounter Note Return in about 12 weeks (around 08/11/2024). Virtual [facility] 05-19-2024 Miscellaneous Notes Return in about 12 weeks (around 08/11/2024). Virtual documented in this encounter [facility] 05-19-2024 Instructions Lenore Morelos APRN.MANAGER BUSINESS PLANNING - 05/19/2024 9:01 AM EDT Images from the original note were not included. Dear Ms. Allan: It was a pleasure to care for you today: Here are today's highlights: Nutrition: Continue low carb and low sugar foods Protein 60-80 grams daily Continue water, and fruits and veggies Healthier options with snacking Water 60-80 ounces Activity: Continue change up routine and add to activities Medications: Metformin 500 mg xr daily Mounjaro 12.5 mg weekly injection TIRZEPATIDE (MOUNJARO) Tirzepatide (Mounjaro) is a new combination drug (mimics 2 gut hormones, GLP1 and GIP) which has demonstrated superior weight loss >20% body wt loss after 72 week randomized controlled study. It's only approved for diabetes currently, but likely will have approval for weight/obesity next year. Below is more information on it as we discussed. Tirzepatide delays gastric emptying and has the potential to alter absorption of oral medications. This is important in patients taking narrow therapeutic index drugs or drugs that need a minimum blood level for efficacy. If you are taking oral contraceptives switch to a non-oral contraceptive method or add a barrier contraceptive method for 4 weeks after initiation of tirzepatide and for 4 weeks after each dose escalation. Video Instructions for Injecting Mounjaro: https://www.[employer] ([employer]ube.com/watch?v= nxnhBdyTSZ0 Link to Size [employer]amper Website Open Energi Medication Guide: https://pi.[employer].IndustryTrader.com/us/mounjaro -us-mg.pdf?s=mg Written pen instructions: https://uspl.[employer].com/mounjaro/ mounjaro.html#ug0 Tirzepatide: Patient drug information What is Mounjaro? Mounjaro is an injectable prescription medicine that is used along with diet and exercise to improve blood sugar (glucose) in adults with type 2 diabetes mellitus. It is not known if Mounjaro can be used in people who have had inflammation of the pancreas (pancreatitis). Mounjaro is not for use in people with type 1 diabetes. It is not known if Mounjaro is safe and effective for use in children under 18 years of age. It works in multiple ways. It helps: - THE BODY RELEASE INSULIN WHEN BLOOD SUGAR IS HIGH - THE BODY REMOVE EXCESS SUGAR FROM THE BLOOD - STOP THE LIVER FROM MAKING AND RELEASING TOO MUCH SUGAR - REDUCE HOW MUCH FOOD IS EATEN - SLOW DOWN HOW QUICKLY FOOD LEAVES THE STOMACH. THIS LESSENS OVER TIME. You can learn about possible side effects of Mounjaro here. Select Safety Information Changes in vision. Tell your healthcare provider if you have changes in vision during treatment with Mounjaro PURPOSE AND SAFETY SUMMARY WITH WARNINGS Important Facts About Mounjaro ([id number]). It is also known as tirzepatide. Mounjaro is an injectable prescription medicine for adults with type 2 diabetes used along with diet and exercise to improve blood sugar (glucose). It is not known if Mounjaro can be used in people who have had inflammation of the pancreas (pancreatitis). Mounjaro is not for use in people with type 1 diabetes. It is not known if Mounjaro is safe and effective for use in children under 18 years of age. Warnings Mounjaro may cause tumors in the thyroid, including thyroid cancer. Watch for possible symptoms, such as a lump or swelling in the neck, hoarseness, trouble swallowing, or shortness of breath. If you have a symptom, tell your healthcare provider. Do not use Mounjaro if you or any of your family have ever had a type of thyroid cancer called medullary thyroid carcinoma (MTC). Do not use Mounjaro if you have Multiple Endocrine Neoplasia syndrome type 2 (MEN 2). Do not use Mounjaro if you are allergic to tirzepatide or any of the ingredients in Mounjaro. Mounjaro may cause serious side effects, including: Inflammation of the pancreas (pancreatitis). Stop using Mounjaro and call your healthcare provider right away if you have severe pain in your stomach area (abdomen) that will not go away, with or without vomiting. You may feel the pain from your abdomen to your back. Low blood sugar (hypoglycemia). Your risk for getting low blood sugar may be higher if you use Mounjaro with another medicine that can cause low blood sugar, such as a sulfonylurea or insulin. Signs and symptoms of low blood sugar may include dizziness or light-headedness, sweating, confusion or drowsiness, headache, blurred vision, slurred speech, shakiness, fast heartbeat, anxiety, irritability, or mood changes, hunger, weakness and feeling jittery. Serious allergic reactions. Stop using Mounjaro and get medical help right away if you have any symptoms of a serious allergic reaction, including swelling of your face, lips, tongue or throat, problems breathing or swallowing, severe rash or itching, fainting or feeling dizzy, and very rapid heartbeat. Kidney problems (kidney failure). In people who have kidney problems, diarrhea, nausea, and vomiting may cause a loss of fluids (dehydration), which may cause kidney problems to get worse. It is important for you to drink fluids to help reduce your chance of dehydration. Severe stomach problems. Stomach problems, sometimes severe, have been reported in people who use Mounjaro. Tell your healthcare provider if you have stomach problems that are severe or will not go away. Changes in vision. Tell your healthcare provider if you have changes in vision during treatment with Mounjaro. Gallbladder problems. Gallbladder problems have happened in some people who use Mounjaro. Tell your healthcare provider right away if you get symptoms of gallbladder problems, which may include pain in your upper stomach (abdomen), fever, yellowing of skin or eyes (jaundice), and mike-colored stools. Common side effects The most common side effects of Mounjaro include nausea, diarrhea, decreased appetite, vomiting, constipation, indigestion, and stomach (abdominal) pain. These are not all the possible side effects of Mounjaro. Talk to your healthcare provider about any side effect that bothers you or doesn't go away. Tell your healthcare provider if you have any side effects. You can report side effects at 0-509-LPP-9902 or www.fda.gov/medwatch. Before using Your healthcare provider should show you how to use Mounjaro before you use it for the first time. Before you use Mounjaro, talk to your healthcare provider about low blood sugar and how to manage it. Review these questions with your healthcare provider: Do you have other medical conditions, including problems with your pancreas or kidneys, or severe problems with your stomach, such as slowed emptying of your stomach (gastroparesis) or problems digesting food? Do you take other diabetes medicines, such as insulin or sulfonylureas? Do you have a history of diabetic retinopathy? Are you or plan to become or or plan to breastfeed? It is not known if Mounjaro will harm your unborn baby. Do you take control pills by mouth? These may not work as well while using Mounjaro. Your healthcare provider may recommend another type of control when you start Mounjaro or when you increase your dose. Do you take any other prescription medicines or hydt-tmc-jauhoye drugs, vitamins, or herbal supplements? How to take Read the Instructions for Use that come with Mounjaro. Use Mounjaro exactly as your healthcare provider says. Mounjaro is injected under the skin (subcutaneously) of your stomach (abdomen), thigh, or upper arm. Use Mounjaro 1 time each week, at any time of the day. Do not mix insulin and Mounjaro together in the same injection. If you take too much Mounjaro, call your healthcare provider or seek medical advice promptly. Learn more For more information, call 7-564-YgwmlYg ( ) or go to www.[employer].IndustryTrader.com. This information does not take the place of talking with your healthcare provider. Be sure to talk to your healthcare provider about Mounjaro and how to take it. Your healthcare provider is the best person to help you decide if Mounjaro is right for you. Mounjaro and its delivery device base are trademarks owned or licensed by [employer], its subsidiaries, or affiliates. NIGEL MOSER [employer] FEBRUARY2022 Access ethority Online for additional drug information, tools, and databases. Copyright [employer]. All rights reserved. Contributor Disclosures (For additional information see Tirzepatide: Drug information) You must carefully read the Consumer Information Use and Disclaimer below in order to understand and correctly use this information. Brand Names: [place] Mounjaro Warning This drug has been shown to cause thyroid cancer in some animals. It is not known if this happens in humans. If thyroid cancer happens, it may be deadly if not found and treated early. Call your doctor right away if you have a neck mass, trouble breathing, trouble swallowing, or have hoarseness that will not go away. Do not use this drug if you have a health problem called Multiple Endocrine Neoplasia syndrome type 2 (MEN 2), or if you or a family member have had thyroid cancer. Have your blood work checked and thyroid ultrasounds as you have been told by your doctor. What is this drug used for? It is used to lower blood sugar in patients with high blood sugar (diabetes). What do I need to tell my doctor BEFORE I take this drug? If you are allergic to this drug; any part of this drug; or any other drugs, foods, or substances. Tell your doctor about the allergy and what signs you had. If you have type 1 diabetes. Do not use this drug to treat type 1 diabetes. If you have ever had pancreatitis. If you have stomach or bowel problems. This is not a list of all drugs or health problems that interact with this drug. Tell your doctor and pharmacist about all of your drugs (prescription or OTC, natural products, vitamins) and health problems. You must check to make sure that it is safe for you to take this drug with all of your drugs and health problems. Do not start, stop, or change the dose of any drug without checking with your doctor. What are some things I need to know or do while I take this drug? Tell all of your health care providers that you take this drug. This includes your doctors, nurses, pharmacists, and dentists. Wear disease medical alert ID (identification). Follow the diet and workout plan that your doctor told you about. Check your blood sugar as you have been told by your doctor. Do not drive if your blood sugar has been low. There is a greater chance of you having a crash. control pills may not work as well to prevent . If you take control pills, you may need to switch to another type of hormone-based control like a vaginal ring if your doctor tells you to. If another type of hormone-based control is not an option, use some other kind of control also, like a condom. Do this for 4 weeks after starting this drug and for 4 weeks each time the dose is raised. This drug may prevent other drugs taken by mouth from getting into the body. If you take other drugs by mouth, you may need to take them at some other time than this drug. Talk with your doctor. It may be harder to control blood sugar during times of stress such as fever, infection, injury, or surgery. A change in physical activity, exercise, or diet may also affect blood sugar. Talk with your doctor before you drink alcohol. Do not share with another person even if the needle has been changed. Sharing your tray or pen may pass infections from one person to another. This includes infections you may not know you have. If you cannot drink liquids by mouth or if you have upset stomach, throwing up, or diarrhea that does not go away; you need to avoid getting dehydrated. Contact your doctor to find out what to do. Dehydration may lead to new or worse kidney problems. A severe and sometimes deadly pancreas problem (pancreatitis) has happened with other drugs like this one. Tell your doctor if you are , plan on getting , or are breast-feeding. You will need to talk about the benefits and risks to you and the baby. What are some side effects that I need to call my doctor about right away? WARNING/CAUTION: Even though it may be rare, some people may have very bad and sometimes deadly side effects when taking a drug. Tell your doctor or get medical help right away if you have any of the following signs or symptoms that may be related to a very bad side effect: Signs of an allergic reaction, like rash; hives; itching; red, swollen, blistered, or peeling skin with or without fever; wheezing; tightness in the chest or throat; trouble breathing, swallowing, or talking; unusual hoarseness; or swelling of the mouth, face, lips, tongue, or throat. Signs of kidney problems like unable to pass urine, change in how much urine is passed, blood in the urine, or a big weight gain. Signs of gallbladder problems like pain in the upper right belly area, right shoulder area, or between the shoulder blades; yellow skin or eyes; fever with chills; bloating; or very upset stomach or throwing up. Signs of a pancreas problem (pancreatitis) like very bad stomach pain, very bad back pain, or very bad upset stomach or throwing up. Dizziness or passing out. A fast heartbeat. Change in eyesight. Low blood sugar can happen. The chance may be raised when this drug is used with other drugs for diabetes. Signs may be dizziness, headache, feeling sleepy or weak, shaking, fast heartbeat, confusion, hunger, or sweating. Call your doctor right away if you have any of these signs. Follow what you have been told to do for low blood sugar. This may include taking glucose tablets, liquid glucose, or some fruit juices. What are some other side effects of this drug? All drugs may cause side effects. However, many people have no side effects or only have minor side effects. Call your doctor or get medical help if any of these side effects or any other side effects bother you or do not go away: Constipation, diarrhea, stomach pain, upset stomach, throwing up, or feeling less hungry. Heartburn. These are not all of the side effects that may occur. If you have questions about side effects, call your doctor. Call your doctor for medical advice about side effects. You may report side effects to your national health agency. How is this drug best taken? Use this drug as ordered by your doctor. Read all information given to you. Follow all instructions closely. It is given as a shot into the fatty part of the skin on the top of the thigh, belly area, or upper arm. If you will be giving yourself the shot, your doctor or nurse will teach you how to give the shot. Keep taking this drug as you have been told by your doctor or other health care provider, even if you feel well. Take the same day each week. Move site where you give the shot each time. Take with or without food. Wash your hands before and after use. Do not use if the solution is leaking or has particles. This drug is colorless to a faint yellow. Do not use if the solution changes color. If you are also using insulin, you may inject this drug and the insulin in the same area of the body but not right next to each other. Do not mix this drug in the same syringe with insulin. Do not move this drug from the pen to a syringe. Each pen is for one use only. Throw away any part of the used pen after the dose is given. Throw away needles in a needle/sharp disposal box. Do not reuse needles or other items. When the box is full, follow all local rules for getting rid of it. Talk with a doctor or pharmacist if you have any questions. What do I do if I miss a dose? If it is within 4 days after the missed dose, take the missed dose and go back to your normal day. If it has been more than 4 days since the missed dose, skip the missed dose and go back to your normal day. Do not take 2 doses at the same time or extra doses. How do I store and/or throw out this drug? Store in a refrigerator. Do not freeze. Do not use if it has been frozen. If needed, each pen may be stored at room temperature for up to 21 days. If you store at room temperature, throw away any part not used after 21 days. Protect from heat. Store in the original container to protect from light. Keep all drugs in a safe place. Keep all drugs out of the reach of children and pets. Throw away unused or drugs. Do not flush down a toilet or pour down a drain unless you are told to do so. Check with your pharmacist if you have questions about the best way to throw out drugs. There may be drug take-back programs in your area. General drug facts If your symptoms or health problems do not get better or if they become worse, call your doctor. Do not share your drugs with others and do not take anyone else's drugs. Some drugs may have another patient information leaflet. If you have any questions about this drug, please talk with your doctor, nurse, pharmacist, or other health care provider. If you think there has been an overdose, call your poison control center or get medical care right away. Be ready to tell or show what was taken, how much, and when it happened. Last Reviewed [id number] Consumer Information Use and Disclaimer This generalized information is a limited summary of diagnosis, treatment, and/or medication information. It is not meant to be comprehensive and should be used as a tool to help the user understand and/or assess potential diagnostic and treatment options. It does NOT include all information about conditions, treatments, medications, side effects, or risks that may apply to a specific patient. It is not intended to be medical advice or a substitute for the medical advice, diagnosis, or treatment of a health care provider based on the health care provider's examination and assessment of a patient's specific and unique circumstances. Patients must speak with a health care provider for complete information about their health, medical questions, and treatment options, including any risks or benefits regarding use of medications. This information does not endorse any treatments or medications as safe, effective, or approved for treating a specific patient. [employer] and its affiliates disclaim any warranty or liability relating to this information or the use thereof. The use of this information is governed by the Terms of Use, available at https://[email or web address].com/en /know/uuxmtqsg-ubdjperdhugba-adp ms. Education included discussing thyroid C-cell tumor risk including Medullary Thyroid Carcinoma (MTC).Though studies have shown increased risk of medullary cell cancers only in rats. Patient denies family history of MTC and Multiple Endocrine Neoplasia Syndrome type 2 (MEN 2). I discussed that this medication is associated with acute pancreatitis, including fatal and non-fatal hemorrhagic or necrotizing pancreatitis. Pt does not have a hx of pancreatitis. Educated patient to monitor for signs such as persistent severe abdominal pain, sometimes radiating to the back, with or without vomiting. If this occurs, stop medication immediately and go to ER. The most common adverse reactions include nausea, vomiting, diarrhea, constipation and injection site erythema. These may dissipate over time. Helpful tip GLP-1 RA increases beta cell proliferation. documented in this encounter [facility] 05-19-2024 History of Presen t illness Narrative Obesity Medicine Followup Note This Team Access Model visit is a virtual visit. It required patient-provider interaction for the medical decision making as documented below. Consent was obtained to complete today's distance health visit. I have communicated my name and active licensure. The patient's identity and physical location were verified at the time of this visit. Either the patient or their legal representative phlebotomy services has been informed of the risks and benefits of -- and alternatives to -- treatment through a remote evaluation and consents to proceed with the evaluation remotely. 05/19/2024 Patient HPI: is 48 year old Female who presents with diagnosis of class III severe obesity with PMH inflammatory breast cancer on the right, and Type 2 diabetes mellitus for follow-up evaluation of her obesity and related complications. In our previous visits we have outlined an individualized lifestyle intervention including a personalized nutrition recommendations and physical activity optimization. Tameka Allan is here today for follow up evaluation for non surgical metabolic weight loss management. her last office visit was3 month(s) ago with advanced practice registered nurse. Weight loss since last visit: Goal weight 160 Today's weight: 229 lbs Last weight: 232.6 BMI: 37.58 Today's concerns: Libby has been on backorder Current Obesity Medications: Mounjaro 12.5 mg subcutaneous weekly injection just increased Has been on backorder and patient was on 10 mg dose Metformin 500 mg XR tablet 1 pill daily Having some cravings afternoon and evening occasional sugar Developing good eating habits Satiety after eats No side effects with the medications. Exercise Freq- continues with steps and walking, and running program and joined video HIT classes and weight training; walking at work Barriers- some fatigue and traveling Work-related activity: active Diet Healthy food choices Meals 3 Protein and veggies Starting with protein shake Water 60-80 ounces Snacking: healthier options Fruit and salads Healthier choices ?Sleep Duration (<6hr)- 6-7 hours Quality- using cpap nightly Stress Degree- moderate Cause-coping - mother /marriage PAST MEDICAL HISTORY No date: Atypical mole No date: Benign colon polyp 2015: BRCA negative Comment: 1 & 2 No date: Diabetes mellitus (HCC) No date: Diabetes mellitus (HCC) No date: Inflammatory breast cancer Comment: right breast, stage 3C- in lymphnodes- triple negative No date: Right tibial fracture No date: Snoring FUNCTIONAL STATUS: Walk indoors, such as around the house (1.75 METs) Do light work around the house, such as dusting or washing dishes (2.70 METs) Take care of self, that is eating, dressing, bathing, using the toilet (2.75 METs) Walk a block or two on level ground (2.75 METs) Do moderate work around the house such as vacuuming, sweeping floors, or carrying in groceries (3.50 METs) Do yardwork, such as raking leaves, weeding,or pushing a power mower (4.50 METs) Climb a flight of stairs or walk up a hill (5.50 METs) Review of Systems: Review of Systems Constitutional: Negative. HENT: Negative. Eyes: No hx of glaucoma Respiratory: Negative. Cardiovascular: Negative. Gastrointestinal: Had some sl diarrhea when on vacation; Tracking food Dietary fiber Endocrine: No hx of hypothyroidism Genitourinary: No renal stones Musculoskeletal: Negative. Skin: Negative. Allergic/Immunologic: Negative. Neurological: Negative. Hematological: Negative. Psychiatric/Behavioral: Negative. PAST SURGICAL HISTORY 07/28/2015: BREAST BIOPSY 11/19/2013: COLONOSCOPY FLX DX W/COLLJ SPEC WHEN PFRMD Comment: Colonoscopy 11/22/2016: COLONOSCOPY FLX DX W/COLLJ SPEC WHEN PFRMD; N/A 12/13/2019: COLONOSCOPY FLX DX W/COLLJ SPEC WHEN PFRMD Comment: Colonoscopy 5 year interval 1998: EXTRACTION, ERUPTED TOOTH OR EXPOSED ROOT (ELEVATION AND/OR FORCEPS REMOVAL) Comment: wisdom teeth 07/05/2015, 06/22/2020: INSERT INTRAUTERINE DEVICE 08/30/2022: LAPAROSCOPIC CHOLECYSTECTOMY 02/05/2016: MAST MODF RAD W/AX LYMPH NOD W/WO PECT/ABELARDO MIN; Right 06/22/2020: SALPINGECTOMY COMPLETE/PARTIAL UNI/BI SPX Comment: bilateral salpingectomy, sterilization, IUD insertion Social History Tobacco Use Smoking status: Former Packs/day: 0.25 Years: 5.00 Additional pack years: 0.00 Total pack years: 1.25 Types: Cigarettes Start date: 1995 Quit date: 02/20/2007 Years since quittin.2 Smokeless tobacco: Never Vaping Use Vaping Use: Never used Substance Use Topics Alcohol use: Yes Alcohol/week: 2.0 standard drinks of alcohol Types: 1 Cans of beer, 1 Glasses of wine per week Comment: occassional, social Drug use: No PE- virtual visit LMP 07/05/2015 (Exact Date) Physical Exam Vitals reviewed. Constitutional: Appearance: Normal appearance. Neurological: General: No focal deficit present. Mental Status: She is alert and oriented to person, place, and time. Mental status is at baseline. Psychiatric: Mood and Affect: Mood normal. Behavior: Behavior normal. Thought Content: Thought content normal. Judgment: Judgment normal. Results No visits with results within 3 Month(s) from this visit. Latest known visit with results is: Appointment on 02/10/2023 Component Date Value Ref Range Status Hemoglobin A1C 02/10/2023 5.0 4.3 - 5.6 % Final Estimated Average Glucose 02/10/2023 97 mg/dL Final Vitamin D 25 Hydroxy 02/10/2023 55.0 31.0 - 80.0 ng/mL Final Cholesterol, Total 02/10/2023 187 <200 mg/dL Final Triglyceride 02/10/2023 125 <150 mg/dL Final HDL Cholesterol 02/10/2023 39 (L) >39 mg/dL Final Non HDL Cholesterol 02/10/2023 148 (H) <130 mg/dL Final Fasting Time 02/10/2023 12 hrs Final VLDL Cholesterol 02/10/2023 25 <30 mg/dL Final TC:HDL Ratio 02/10/2023 4.79 <5.10 Final LDL Cholesterol 02/10/2023 123 (H) <100 mg/dL Final LDL:HDL Ratio 02/10/2023 3.15 (H) <2.54 Final Protein, Total 02/10/2023 7.4 6.3 - 8.0 g/dL Final Albumin 02/10/2023 4.2 3.9 - 4.9 g/dL Final Calcium, Total 02/10/2023 8.8 8.5 - 10.2 mg/dL Final Bilirubin, Total 02/10/2023 0.4 0.2 - 1.3 mg/dL Final Alkaline Phosphatase 02/10/2023 46 34 - 123 U/L Final AST 02/10/2023 14 13 - 35 U/L Final ALT 02/10/2023 21 7 - 38 U/L Final Glucose 02/10/2023 97 74 - 99 mg/dL Final BUN 02/10/2023 11 7 - 21 mg/dL Final Creatinine 02/10/2023 0.80 0.58 - 0.96 mg/dL Final Sodium 02/10/2023 138 136 - 144 mmol/L Final Potassium 02/10/2023 4.0 3.7 - 5.1 mmol/L Final Chloride 02/10/2023 104 97 - 105 mmol/L Final CO2 02/10/2023 24 22 - 30 mmol/L Final Anion Gap 02/10/2023 10 9 - 18 mmol/L Final Estimated Glomerular Filtration Ra* 02/10/2023 93 >=60 mL/min/1.73m Final WBC 02/10/2023 11.03 (H) 3.70 - 11.00 k/uL Final RBC 02/10/2023 4.77 3.90 - 5.20 m/uL Final Hemoglobin 02/10/2023 15.0 11.5 - 15.5 g/dL Final Hematocrit 02/10/2023 43.0 36.0 - 46.0 % Final MCV 02/10/2023 90.1 80.0 - 100.0 fL Final MCH 02/10/2023 31.4 26.0 - 34.0 pg Final MCHC 02/10/2023 34.9 30.5 - 36.0 g/dL Final RDW-CV 02/10/2023 12.6 11.5 - 15.0 % Final Platelet Count 02/10/2023 240 150 - 400 k/uL Final MPV 02/10/2023 9.8 9.0 - 12.7 fL Final Neutrophils % 02/10/2023 65.9 % Final Abs Neut 02/10/2023 7.26 1.45 - 7.50 k/uL Final Lymphocytes % 02/10/2023 23.4 % Final Abs Lymph 02/10/2023 2.58 1.00 - 4.00 k/uL Final Monocytes % 02/10/2023 7.5 % Final Abs Richardson 02/10/2023 0.83 <0.87 k/uL Final Eosinophils % 02/10/2023 2.1 % Final Abs Eosin 02/10/2023 0.23 <0.46 k/uL Final Basophils % 02/10/2023 0.5 % Final Abs Baso 02/10/2023 0.06 <0.11 k/uL Final Immature Granulocytes % 02/10/2023 0.6 % Final Abs Immature Gran 02/10/2023 0.07 <0.10 k/uL Final NRBC 02/10/2023 0.0 /100 WBC Final Absolute nRBC 02/10/2023 <0.01 <0.01 k/uL Final Diff Type 02/10/2023 Auto Final Impression: 48 year old female with a a diagnosis of class 3 obesity here for non surgical metabolic weight loss management. Body mass index is 37.58 kg/m . Assessment/Plan: ASSESSMENT/PLAN: 1. Class 3 severe obesity with serious comorbidity in adult, unspecified BMI, unspecified obesity type (HCC) - ICD9: 278.01, ICD10: E66.01 (primary diagnosis) Weight decreasing - Behavioral and pharmacological intervention Counseled patient in length recommended to continue low carbohydrate low sugar nutrition and continue to manage maladaptive eating behaviors and adding resistance exercise. Discussed with patient to continue low carbohydrate nutrition provided examples and discussed with patient to increase cardio exercise add some weights and increase non- exercise activity thermogenesis. I have also reviewed the possibility using weight loss medications in effort to reduce patient's appetite. I reviewed the different therapeutic options available including phentermine, Qsymia, Contrave, Saxenda, topiramate, metformin, bupropion and Effexor which all been associated weight loss. At this time we agreed that the patient's best option at this point to be: Increase Mounjaro 12.5 mg weekly injection Education included discussing thyroid C-cell tumor risk including Medullary Thyroid Carcinoma (MTC).Though studies have shown increased risk of medullary cell cancers only in rats. Patient denies family history of MTC and Multiple Endocrine Neoplasia Syndrome type 2 (MEN 2). I discussed that this medication is associated with acute pancreatitis, including fatal and non-fatal hemorrhagic or necrotizing pancreatitis. Pt does not have a hx of pancreatitis. Educated patient to monitor for signs such as persistent severe abdominal pain, sometimes radiating to the back, with or without vomiting. If this occurs, stop medication immediately and go to ER. The most common adverse reactions include nausea, vomiting, diarrhea, constipation and injection site erythema. These may dissipate over time. Helpful tip GLP-1 RA increases beta cell proliferation. 2. Dietary counseling and surveillance - ICD9: V65.3, ICD10: Z71.3 Reviewed principles of energy metabolism caloric intake and expenditure and rationale for treatment program. Also reinforced need for reduced calorie low-fat nutrition and increase physical activity. 3. BMI 40.0-44.9, adult (HCC) - ICD9: V85.41, ICD10: Z68.41 Weight decreasing - Behavioral and pharmacological intervention 4. Type 2 diabetes mellitus with other specified complication, without long-term current use of insulin (HCC) - ICD9: 250.80, ICD10: E11.69 - Improving control - Continue current medications - Counseled on healthy diet and regular exercise - Discussed need for and benefit of weight loss. BMI 37.58 kg/(m^2) 5. HALIMA (obstructive sleep apnea) - ICD9: 327.23, ICD10: G47.33 Continue using CPAP nightly Patient is doing well otherwise, continues lifestyle modification. Patient remains motivated to lose weight. This note was partially generated using [employer] voice recognition system, and there may be some incorrect words, spellings, and punctuation that were not noted in checking the note before saving. -- We discussed several strategies to track food intake and increase mindfulness around eating. We will start with a self-directed attempt in combination with the above recommendations. -- Encouraged consistency of exercise, with an overall goal of 200 minutes per week. This dose of exercise has been effective in weight loss and maintenance. We discussed that cardiovascular exercise is most beneficial for weight loss initially, but it is important to combine resistance training as there is a loss of lean muscle mass with weight loss. Lenore Morelos APRN [facility] Obesity Medicine I spent a total of 30 minutes on the date of the service which included preparing to see the patient, [id number] patient care, completing clinical documentation, obtaining and/or reviewing separately obtained history, performing a medically appropriate examination, counseling and educating the patient/family/caregiver, ordering medications, tests, or procedures, communicating with other HCPs (not separately reported), independently interpreting results (not separately reported), communicating results to the patient/family/caregiver, and care coordination (not separately reported) 5A's- Assess: I assessed behavioral health risk/factors affecting --- Asked about/assess behavioral health risk(s) and factors affecting choice of behavior change goals --- somewhat sedentry lifestyle ---?snacking ---Lack of exercise Advise: clear, specific, personalized behavior change advice. ---I gave very clear, specific, and personalized behavior change adviced, including information about personal health harms and benefits. Agree: Patient agrees with selected appropriate treatment goals and methods to change behavior Assist: Provided IBT w self-help, handouts, teaching skills and support Using behavior change techniques with self-help and Counseling in achieving Goals. Also discussed supplementing with adjunctive medical treatments when appropriate. Arrange: follow up scheduled, handouts given to patient. documented in this encounter [facility] 05-19-2024 Note HNO ID: [id number] Author: LENORE MORELOS APRN.[facility] Service: ? Author Type: Nurse Practitioner Type: Progress Notes Filed: 05/19/2024 23:56 Note Text: Obesity Medicine Followup Note This Team Access Model visit is a virtual visit. It required patient-provider interaction for the medical decision making as documented below. Consent was obtained to complete today's distance health visit. I have communicated my name and active licensure. The patient's identity and physical location were verified at the time of this visit. Either the patient or their legal representative phlebotomy services has been informed of the risks and benefits of -- and alternatives to -- treatment through a remote evaluation and consents to proceed with the evaluation remotely. 05/19/2024 Patient HPI: is 48 year old Female who presents with diagnosis of class III severe obesity with PMH inflammatory breast cancer on the right, and Type 2 diabetes mellitus for follow-up evaluation of her obesity and related complications. In our previous visits we have outlined an individualized lifestyle intervention including a personalized nutrition recommendations and physical activity optimization. Tameka Allan is here today for follow up evaluation for non surgical metabolic weight loss management. her last office visit was3 month(s) ago with advanced practice registered nurse. Weight loss since last visit: Goal weight 160 Today's weight: 229 lbs Last weight: 232.6 BMI: 37.58 Today's concerns: Libby has been on backorder Current Obesity Medications: Libby 12.5 mg subcutaneous weekly injection just increased Has been on backorder and patient was on 10 mg dose Metformin 500 mg XR tablet 1 pill daily Having some cravings afternoon and evening occasional sugar Developing good eating habits Satiety after eats No side effects with the medications. Exercise Freq- continues with steps and walking, and running program and joined video HIT classes and weight training; walking at work Barriers- some fatigue and traveling Work-related activity: active Diet Healthy food choices Meals 3 Protein and veggies Starting with protein shake Water 60-80 ounces Snacking: healthier options Fruit and salads Healthier choices ?Sleep Duration (<6hr)- 6-7 hours Quality- using cpap nightly Stress Degree- moderate Cause-coping - mother /marriage PAST MEDICAL HISTORY No date: Atypical mole No date: Benign colon polyp 2015: BRCA negative Comment: 1 AND 2 No date: Diabetes mellitus (HCC) No date: Diabetes mellitus (HCC) No date: Inflammatory breast cancer Comment: right breast, stage 3C- in lymphnodes- triple negative No date: Right tibial fracture No date: Snoring FUNCTIONAL STATUS: Walk indoors, such as around the house (1.75 METs) Do light work around the house, such as dusting or washing dishes (2.70 METs) Take care of self, that is eating, dressing, bathing, using the toilet (2.75 METs) Walk a block or two on level ground (2.75 METs) Do moderate work around the house such as vacuuming, sweeping floors, or carrying in groceries (3.50 METs) Do yardwork, such as raking leaves, weeding,or pushing a power mower (4.50 METs) Climb a flight of stairs or walk up a hill (5.50 METs) Review of Systems: Review of Systems Constitutional: Negative. HENT: Negative. Eyes: No hx of glaucoma Respiratory: Negative. Cardiovascular: Negative. Gastrointestinal: Had some sl diarrhea when on vacation; Tracking food Dietary fiber Endocrine: No hx of hypothyroidism Genitourinary: No renal stones Musculoskeletal: Negative. Skin: Negative. Allergic/Immunologic: Negative. Neurological: Negative. Hematological: Negative. Psychiatric/Behavioral: Negative. PAST SURGICAL HISTORY 07/28/2015: BREAST BIOPSY 11/19/2013: COLONOSCOPY FLX DX W/COLLJ SPEC WHEN PFRMD Comment: Colonoscopy 11/22/2016: COLONOSCOPY FLX DX W/COLLJ SPEC WHEN PFRMD; N/A 12/13/2019: COLONOSCOPY FLX DX W/COLLJ SPEC WHEN PFRMD Comment: Colonoscopy 5 year interval 1998: EXTRACTION, ERUPTED TOOTH OR EXPOSED ROOT (ELEVATION AND/OR FORCEPS REMOVAL) Comment: wisdom teeth 07/05/2015, 06/22/2020: INSERT INTRAUTERINE DEVICE 08/30/2022: LAPAROSCOPIC CHOLECYSTECTOMY 02/05/2016: MAST MODF RAD W/AX LYMPH NOD W/WO PECT/ABELARDO MIN; Right 06/22/2020: SALPINGECTOMY COMPLETE/PARTIAL UNI/BI SPX Comment: bilateral salpingectomy, sterilization, IUD insertion Social History Tobacco Use Smoking status: Former Packs/day: 0.25 Years: 5.00 Additional pack years: 0.00 Total pack years: 1.25 Types: Cigarettes Start date: 1995 Quit date: 02/20/2007 Years since quittin.2 Smokeless tobacco: Never Vaping Use Vaping Use: Never used Substance Use Topics Alcohol use: Yes Alcohol/week: 2.0 standard drinks of alcohol Types: 1 Cans of beer, 1 Glasses of wine per week Comment: occassional, social Drug use: No PE- virtual v (more content not included)... [facility] 05-06-2024 Telephone encounter Note Pharmacy requesting the following refill Refill(s) Requested: Requested Prescriptions Pending Prescriptions Disp Refills metFORMIN ER (GLUCOPHAGE XR) 500 mg 24 hr tablet [Pharmacy Med Name: METFORMIN HCL ER 500 MG TABLET] 90 tablet 0 Sig: take 1 tablet by mouth every day with breakfast ALLERGIES Allergen Reactions Seasonal Allergies Unknown (home) [phone] (work) [phone] (cell) Last Office Visit Date: 02/09/2024 Last Distance Health Visit: Visit date not found Future Appointment: 05/19/2024 The patients preferred pharmacy has been captured for this encounter? yes Request is for script(s) to be escript to pharmacy. Dara Muir LPN [facility] [facility] Work Phone: 05-06-2024 Miscellaneous Notes Pharmacy requesting the following refill Refill(s) Requested: Requested Prescriptions Pending Prescriptions Disp Refills metFORMIN ER (GLUCOPHAGE XR) 500 mg 24 hr tablet [Pharmacy Med Name: METFORMIN HCL ER 500 MG TABLET] 90 tablet 0 Sig: take 1 tablet by mouth every day with breakfast ALLERGIES Allergen Reactions Seasonal Allergies Unknown (home) [phone] (work) [phone] (cell) Last Office Visit Date: 02/09/2024 Last [facility] Health Visit: Visit date not found Future Appointment: 05/19/2024 The patients preferred pharmacy has been captured for this encounter? yes Request is for script(s) to be escript to pharmacy. Dara Muir LPN documented in this encounter [facility] 04-23-2024 Telephone encounter Note Today's OV faxed to [facility] directly from [facility] Brittney Bonilla [facility] 04-23-2024 Miscellaneous Notes Today's OV faxed to [facility] directly from [employer] Brittney Bonilla Images from the original note were not included. Message Received: Today Billie Lozoya MD [facility] Admin Pool Patient needs letter for 30-90 day confirmation letter for insurance. documented in this encounter [facility] 04-23-2024 Telephone encounter Note Images from the original note were not included. Message Received: Today Billie Lozoya MD P [facility] Admin Pool Patient needs letter for 30-90 day confirmation letter for insurance. [facility] 04-23-2024 History of Presen t illness Narrative Images from the original note were not included. Pulmonary Consult Patient Name: Tameka Allan Overview Notes of Problems Addressed This Visit Pulmonary HALIMA (obstructive sleep apnea) - Primary S/N [id number] In [facility] ASSESSMENT: H/o HALIMA Treated with CPAP with good response, perfect compliance, very mild leak Using FFM AND Taping mouth Obesity - now in medical bariatric program has lost weight - 30 lbs PLAN: APAP as written Follow with bariatric program Consider improve sleep hygiene Return to Office: 12 months PRIMARY CARE PHYSICIAN: Zainab Fountain (Stagecraft Professor) Patient Ms. Allan states Zainab Fountain (Dylan) requests consultation regarding possible HALIMA. My final recommendations will be communicated to the requesting health care provider by way of the shared medical record for internal providers or letter via the [employer] for external providers. CHIEF COMPLAINT: possible HALIMA HPI: This is a 47 year old person who presents with possible HALIMA Never smoked regularly INITIAL VISIT WITH ME 05/30/2023 Sleep history: History of snoring HSAT last year - 2021 - HALIMA Given CPAP - tried it for 1-2 weeks and then returned it. Overall sleep: Poor overall Re: sleep To bed: 10-11 SL: 1 hour --Activities while trying to sleep: watching tv - often going to sleep with tv on Wakes for day: 6 am Weekend sleep schedule: sleeps in until 7-8 am NA: 1 x due to nocturia SL after reawakin-30 min --Activities while trying to sleep: tossing and turning - dark quiet room Typical hours of sleep: 6 hours A Good nights sleep: 6-7 hours Sleep is unrefreshing RLS Symptoms: none Preferred sleep position: side and back Naps: none Caffeinated Beverages: 1 cup coffee in am. Morning Headaches: none Dry mouth/Sore throat: often Loud witnessed snoring; No subjective snoring No witnessed apneas; No subjective apneas Sleep medications: none Family hx: none Prior Studies: documented sleep apnea as above Sleep Paralysis: No Hypnogogic hallucinations: No Cataplexy: No Weight 261 max - now down 30 lbs [place] Sleepiness Scale: Total: 5 09/29/2023 Pt has now considered and wishes to try to CPAP again - understanding that she needs to be qualified again RE: Sleep to bed 10 p; SL 1 h; Wakes 6-7 NA 1x nocturia Sleep is variably refreshing Drinks 1 coffee in am. Mild daytime sleepiness 12/09/23 HSAT Time MONSERRAT/AHI Supine 169.5 min 20.9 Off-Supine 241.5 min 24.1 Total 411.0 min 22.8 TODAY 04/23/2024 02/19/2024 received CPAP Using every night since Feels a benefit - after two weeks - sleeping better through the night To bed 10p; SL 30 min - will watch TV; Wakes 630 NA 1+ nocturia; SL short Sleep is refreshing After using cpap x 1 week - Less Foggy during the day Weight is stable - no drastic changes - mild continued exercise [Compliance reviewed in detail - report below] REVIEW OF SYSTEMS: GENERAL: No fevers, chills or sweats HEENT: Negative for frequent or significant headaches, No changes in hearing or vision, no nose bleeds or other nasal problems, No dysphagia RESPIRATORY: Negative for cough, sputum production or hemoptysis, No wheezing or dyspnea CARDIOVASCULAR: Negative for chest pain, palpitations, Negative for lower extremity edema GI: No abdominal pain, nausea or vomiting, No diarrhea or constipation, No hematochezia or hematemesis : No dysuria, polyuria, hematuria or nocturia NEURO: No history of headaches, syncope, paralysis, seizures or tremors A complete ROS was performed and all other systems are negative No question data found. PAST MEDICAL HISTORY: PAST MEDICAL HISTORY Diagnosis Date Atypical mole Benign colon polyp BRCA negative 2014 1 & 2 Diabetes mellitus (HCC) Diabetes mellitus (HCC) Inflammatory breast cancer right breast, stage 3C- in lymphnodes- triple negative Right tibial fracture Snoring PAST SURGICAL HISTORY: PAST SURGICAL HISTORY Procedure Laterality Date BREAST BIOPSY 07/28/2015 COLONOSCOPY FLX DX W/COLLJ SPEC WHEN PFRMD 11/19/2013 Colonoscopy COLONOSCOPY FLX DX W/COLLJ SPEC WHEN PFRMD N/A 11/22/2016 COLONOSCOPY FLX DX W/COLLJ SPEC WHEN PFRMD 12/13/2019 Colonoscopy 5 year interval EXTRACTION, ERUPTED TOOTH OR EXPOSED ROOT (ELEVATION AND/OR FORCEPS REMOVAL) 1998 wisdom teeth INSERT INTRAUTERINE DEVICE 07/05/2015, 06/22/2020 LAPAROSCOPIC CHOLECYSTECTOMY 08/30/2022 MAST MODF RAD W/AX LYMPH NOD W/WO PECT/ABELARDO MIN Right 02/05/2016 SALPINGECTOMY COMPLETE/PARTIAL UNI/BI SPX 06/22/2020 bilateral salpingectomy, sterilization, IUD insertion FAMILY HISTORY: FAMILY HISTORY Problem Relation Age of Onset Hypertension Mother 80 in Colon Cancer Father passed in 1983 in his 50's other (precancerous breast lesion) Maternal Grandmother 80 Ovarian cancer Paternal Grandmother Other 2nd degree relative Cancer Paternal Grandfather kidney Breast Cancer Other 2nd degree relative Ovarian cancer Other SOCIAL HISTORY: Social History Tobacco Use Smoking status: Former Packs/day: 0.25 Years: 5.00 Additional pack years: 0.00 Total pack years: 1.25 Types: Cigarettes Start date: 1995 Quit date: 02/20/2007 Years since quittin.1 Smokeless tobacco: Never Vaping Use Vaping Use: Never used Substance Use Topics Alcohol use: Yes Alcohol/week: 2.0 standard drinks of alcohol Types: 1 Cans of beer, 1 Glasses of wine per week Comment: occassional, social Drug use: No MEDICATIONS: MOUNJARO 10 mg/0.5 mL pen injector Inject 10 mg subcutaneously one time a week. metFORMIN ER (GLUCOPHAGE XR) 500 mg 24 hr tablet Take 1 tablet by mouth daily with breakfast. CPAP/BIPAP/OTHER AutoPAP 5-20 cmH2O Mask per patient preference Lifetime supplies Dx: HALIMA levonorgestrel (LILETTA) 20.1 mcg/24 hrs (6 yrs) 52 mg IUD 1 Each by INTRAUTERINE route as directed. put in at [facility] ALLERGIES Allergen Reactions Seasonal Allergies Unknown PHYSICAL EXAM: BP 121/66 Pulse 79 Temp (Src) 96.8 (Temporal) Resp 20 Ht 5' 5.512 (1.66m) Wt 231 lb 3.2 oz (104.9kg) SpO2 98% LMP 07/05/2015 BMI 37.88 kg/(m^2). GENERAL: Alert, no distress, cooperative SKIN: Skin color, texture, turgor normal. No rashes or lesions. HEAD/SINUSES: No significant findings, no sinus tenderness EYES: PERRL, EOM'S INTACT, Conjunctivae & Sclerae Normal EARS: External ears normal. NOSE: Nares normal. Septum midline. OROPHARYNX: Grossly normal Dentition good NECK: No accessory muscle use, supple BACK: Back symmetric, Normal curvature, ROM normal, No CVAT. LUNGS: clear to auscultation Negative findings: normal respiratory rate and rhythm, chest symmetric with normal A/P diameter, no chest deformities noted, no chest wall tenderness, diaphragmatic excursion normal CARDIAC: Regular rate and rhythm, no significant murmurs, rubs or gallops ABDOMEN: Soft, Nontender, Nondistended EXTREMITIES: Normal, Warm, No cyanosis, no clubbing No edema NEURO: muscle tone normal, muscle strength normal Moves bilaterally, nonfocal, sensation grossly intact The remainder of the physical exam is noncontributory. DATA: Sleep Studies: Radiology: Reviewed Laboratory: Reviewed SIGNATURE: Billie Lozoya MD CC: Zainab Fountain (Dylan) documented in this encounter [facility] 04-23-2024 Note HNO ID: [id number] Author: BILLIE LOZOYA MD Service: ? Author Type: Physician Type: Progress Notes Filed: 04/23/2024 14:57 Note Text: Pulmonary Consult Patient Name: Tameka Allan Overview Notes of Problems Addressed This Visit Pulmonary HALIMA (obstructive sleep apnea) - Primary S/N [id number] In [facility] ASSESSMENT: H/o HALIMA Treated with CPAP with good response, perfect compliance, very mild leak Using FFM AND Taping mouth Obesity - now in medical bariatric program has lost weight - 30 lbs PLAN: APAP as written Follow with bariatric program Consider improve sleep hygiene Return to Office: 12 months PRIMARY CARE PHYSICIAN: Zainab Fountain (Dylan) Patient Ms. Allan states Zainab Fountain (Dylan) requests consultation regarding possible HALIMA. My final recommendations will be communicated to the requesting health care provider by way of the shared medical record for internal providers or letter via the [employer] for external providers. CHIEF COMPLAINT: possible HALIMA HPI: This is a 47 year old person who presents with possible HALIMA Never smoked regularly INITIAL VISIT WITH ME 05/30/2023 Sleep history: History of snoring HSAT last year - 2021 - HALIMA Given CPAP - tried it for 1-2 weeks and then returned it. Overall sleep: Poor overall Re: sleep To bed: 10-11 SL: 1 hour --Activities while trying to sleep: watching tv - often going to sleep with tv on Wakes for day: 6 am Weekend sleep schedule: sleeps in until 7-8 am NA: 1 x due to nocturia SL after reawakin-30 min --Activities while trying to sleep: tossing and turning - dark quiet room Typical hours of sleep: 6 hours A Good nights sleep: 6-7 hours Sleep is unrefreshing RLS Symptoms: none Preferred sleep position: side and back Naps: none Caffeinated Beverages: 1 cup coffee in am. Morning Headaches: none Dry mouth/Sore throat: often Loud witnessed snoring; No subjective snoring No witnessed apneas; No subjective apneas Sleep medications: none Family hx: none Prior Studies: documented sleep apnea as above Sleep Paralysis: No Hypnogogic hallucinations: No Cataplexy: No Weight 261 max - now down 30 lbs [place] Sleepiness Scale: Total: 5 09/29/2023 Pt has now considered and wishes to try to CPAP again - understanding that she needs to be qualified again RE: Sleep to bed 10 p; SL 1 h; Wakes 6-7 NA 1x nocturia Sleep is variably refreshing Drinks 1 coffee in am. Mild daytime sleepiness 12/09/23 HSAT Time MONSERRAT/AHI Supine 169.5 min 20.9 Off-Supine 241.5 min 24.1 Total 411.0 min 22.8 TODAY 04/23/2024 02/19/2024 received CPAP Using every night since Feels a benefit - after two weeks - sleeping better through the night To bed 10p; SL 30 min - will watch TV; Wakes 630 NA 1+ nocturia; SL short Sleep is refreshing After using cpap x 1 week - Less Foggy during the day Weight is stable - no drastic changes - mild continued exercise [Compliance reviewed in detail - report below] REVIEW OF SYSTEMS: GENERAL: No fevers, chills or sweats HEENT: Negative for frequent or significant headaches, No changes in hearing or vision, no nose bleeds or other nasal problems, No dysphagia RESPIRATORY: Negative for cough, sputum production or hemoptysis, No wheezing or dyspnea CARDIOVASCULAR: Negative for chest pain, palpitations, Negative for lower extremity edema GI: No abdominal pain, nausea or vomiting, No diarrhea or constipation, No hematochezia or hematemesis : No dysuria, polyuria, hematuria or nocturia NEURO: No history of headaches, syncope, paralysis, seizures or tremors A complete ROS was performed and all other systems are negative No question data found. PAST MEDICAL HISTORY: PAST MEDICAL HISTORY Diagnosis Date Atypical mole Benign colon polyp BRCA negative 2014 1 AND 2 Diabetes mellitus (HCC) Diabetes mellitus (HCC) Inflammatory breast cancer right breast, stage 3C- in lymphnodes- triple negative Right tibial fracture Snoring PAST SURGICAL HISTORY: PAST SURGICAL HISTORY Procedure Laterality Date BREAST BIOPSY 07/28/2015 COLONOSCOPY FLX DX W/COLLJ SPEC WHEN PFRMD 11/19/2013 Colonoscopy COLONOSCOPY FLX DX W/COLLJ SPEC WHEN PFRMD N/A 11/22/2016 COLONOSCOPY FLX DX W/COLLJ SPEC WHEN PFRMD 12/13/2019 Colonoscopy 5 year interval EXTRACTION, ERUPTED TOOTH OR EXPOSED ROOT (ELEVATION AND/OR FORCEPS REMOVAL) 1998 wisdom teeth INSERT INTRAUTERINE DEVICE 07/05/2015, 06/22/2020 LAPAROSCOPIC CHOLECYSTECTOMY 08/30/2022 MAST MODF RAD W/AX LYMPH NOD W/WO PECT/ABELARDO MIN Right 02/05/2016 SALPINGECTOMY COMPLETE/PARTIAL UNI/BI SPX 06/22/2020 bilateral salpingectomy, sterilization, IUD insertion FAMILY HISTORY: FAMILY HISTORY Problem Relation Age of Onset Hypertension Mother 80 in '24 Colon Cancer Father passed in 1983 in his 50's other (precancerous breast lesion) Maternal Grandmother 80 (more content not included)... [facility] 04-20-2024 Telephone encounter Note Patient is requesting the following refill. Patient's last appointment: 02/09/24. Next appointment: 05/07/24 . Requested Prescriptions Pending Prescriptions Disp Refills MOUNJARO 10 mg/0.5 mL pen injector [Pharmacy Med Name: MOUNJARO 10 MG/0.5 ML PEN] Sig: INJECT 10 MG SUBCUTANEOUSLY ONE TIME PER WEEK Patient Phone numbers: [phone] (home) [phone] (work) Request is for script(s) to be escript to pharmacy. Jodie Hawk LPN [facility] 04-20-2024 Miscellaneous Notes Patient is requesting the following refill. Patient's last appointment: 02/09/24. Next appointment: 05/07/24 . Requested Prescriptions Pending Prescriptions Disp Refills MOUNJARO 10 mg/0.5 mL pen injector [Pharmacy Med Name: MOUNJARO 10 MG/0.5 ML PEN] Sig: INJECT 10 MG SUBCUTANEOUSLY ONE TIME PER WEEK Patient Phone numbers: [phone] (home) [phone] (work) Request is for script(s) to be escript to pharmacy. Jodie Hawk LPN documented in this encounter [facility] 03-29-2024 Telephone encounter Note Order for PAP supplies signed and faxed back to [facility] [place]. Mague Otto [facility] 03-29-2024 Miscellaneous Notes Order for PAP supplies signed and faxed back to [facility] [place]. Mague Otto documented in this encounter [facility] 02-09-2024 Lenore Morin APRN.[facility] - 02/09/2024 8:39 AM EDT Images from the original note were not included. Dear Ms. Allan: It was a pleasure to care for you today: Here are today's highlights: Nutrition: Continue low carb and low sugar foods Water 60-80 ounces daily Protein 60-90 grams daily Carbs 80-100 grams Fruits, veges, whole grain, Activity: Increase cardio Chair yoga Swimming Continue walking Steps goal 12,000 Medications: Continue Mounjaro 10 mg weekly injection Continue 1 metformin 500 mg xr tablet TIRZEPATIDE (MOUNJARO) Tirzepatide (Mounjaro) is a new combination drug (mimics 2 gut hormones, GLP1 and GIP) which has demonstrated superior weight loss >20% body wt loss after 72 week randomized controlled study. It's only approved for diabetes currently, but likely will have approval for weight/obesity next year. Below is more information on it as we discussed. Tirzepatide delays gastric emptying and has the potential to alter absorption of oral medications. This is important in patients taking narrow therapeutic index drugs or drugs that need a minimum blood level for efficacy. If you are taking oral contraceptives switch to a non-oral contraceptive method or add a barrier contraceptive method for 4 weeks after initiation of tirzepatide and for 4 weeks after each dose escalation. Video Instructions for Injecting Mounjaro: https://www.Your Last Chance.com/watch?v= nxnhBdyTSZ0 Link to Size Stamper Website Open [employer] Medication Guide: https://pi.[employer].IndustryTrader.com/us/mounjaro -us-mg.pdf?s=mg Written pen instructions: https://uspl.[employer].com/mounjaro/ mounjaro.html#ug0 Tirzepatide: Patient drug information What is Mounjaro? Mounjaro is an injectable prescription medicine that is used along with diet and exercise to improve blood sugar (glucose) in adults with type 2 diabetes mellitus. It is not known if Mounjaro can be used in people who have had inflammation of the pancreas (pancreatitis). Mounjaro is not for use in people with type 1 diabetes. It is not known if Mounjaro is safe and effective for use in children under 18 years of age. It works in multiple ways. It helps: - THE BODY RELEASE INSULIN WHEN BLOOD SUGAR IS HIGH - THE BODY REMOVE EXCESS SUGAR FROM THE BLOOD - STOP THE LIVER FROM MAKING AND RELEASING TOO MUCH SUGAR - REDUCE HOW MUCH FOOD IS EATEN - SLOW DOWN HOW QUICKLY FOOD LEAVES THE STOMACH. THIS LESSENS OVER TIME. You can learn about possible side effects of Mounjaro here. Select Safety Information Changes in vision. Tell your healthcare provider if you have changes in vision during treatment with Mounjaro PURPOSE AND SAFETY SUMMARY WITH WARNINGS Important Facts About Mounjaro ([id number]). It is also known as tirzepatide. Mounjaro is an injectable prescription medicine for adults with type 2 diabetes used along with diet and exercise to improve blood sugar (glucose). It is not known if Mounjaro can be used in people who have had inflammation of the pancreas (pancreatitis). Mounjaro is not for use in people with type 1 diabetes. It is not known if Mounjaro is safe and effective for use in children under 18 years of age. Warnings Mounjaro may cause tumors in the thyroid, including thyroid cancer. Watch for possible symptoms, such as a lump or swelling in the neck, hoarseness, trouble swallowing, or shortness of breath. If you have a symptom, tell your healthcare provider. Do not use Mounjaro if you or any of your family have ever had a type of thyroid cancer called medullary thyroid carcinoma (MTC). Do not use Mounjaro if you have Multiple Endocrine Neoplasia syndrome type 2 (MEN 2). Do not use Mounjaro if you are allergic to tirzepatide or any of the ingredients in Mounjaro. Mounjaro may cause serious side effects, including: Inflammation of the pancreas (pancreatitis). Stop using Mounjaro and call your healthcare provider right away if you have severe pain in your stomach area (abdomen) that will not go away, with or without vomiting. You may feel the pain from your abdomen to your back. Low blood sugar (hypoglycemia). Your risk for getting low blood sugar may be higher if you use Mounjaro with another medicine that can cause low blood sugar, such as a sulfonylurea or insulin. Signs and symptoms of low blood sugar may include dizziness or light-headedness, sweating, confusion or drowsiness, headache, blurred vision, slurred speech, shakiness, fast heartbeat, anxiety, irritability, or mood changes, hunger, weakness and feeling jittery. Serious allergic reactions. Stop using Mounjaro and get medical help right away if you have any symptoms of a serious allergic reaction, including swelling of your face, lips, tongue or throat, problems breathing or swallowing, severe rash or itching, fainting or feeling dizzy, and very rapid heartbeat. Kidney problems (kidney failure). In people who have kidney problems, diarrhea, nausea, and vomiting may cause a loss of fluids (dehydration), which may cause kidney problems to get worse. It is important for you to drink fluids to help reduce your chance of dehydration. Severe stomach problems. Stomach problems, sometimes severe, have been reported in people who use Mounjaro. Tell your healthcare provider if you have stomach problems that are severe or will not go away. Changes in vision. Tell your healthcare provider if you have changes in vision during treatment with Mounjaro. Gallbladder problems. Gallbladder problems have happened in some people who use Mounjaro. Tell your healthcare provider right away if you get symptoms of gallbladder problems, which may include pain in your upper stomach (abdomen), fever, yellowing of skin or eyes (jaundice), and mike-colored stools. Common side effects The most common side effects of Mounjaro include nausea, diarrhea, decreased appetite, vomiting, constipation, indigestion, and stomach (abdominal) pain. These are not all the possible side effects of Mounjaro. Talk to your healthcare provider about any side effect that bothers you or doesn't go away. Tell your healthcare provider if you have any side effects. You can report side effects at 0-212-UMM-3080 or www.fda.gov/medwatch. Before using Your healthcare provider should show you how to use Mounjaro before you use it for the first time. Before you use Mounjaro, talk to your healthcare provider about low blood sugar and how to manage it. Review these questions with your healthcare provider: Do you have other medical conditions, including problems with your pancreas or kidneys, or severe problems with your stomach, such as slowed emptying of your stomach (gastroparesis) or problems digesting food? Do you take other diabetes medicines, such as insulin or sulfonylureas? Do you have a history of diabetic retinopathy? Are you or plan to become or or plan to breastfeed? It is not known if Mounjaro will harm your unborn baby. Do you take control pills by mouth? These may not work as well while using Mounjaro. Your healthcare provider may recommend another type of control when you start Mounjaro or when you increase your dose. Do you take any other prescription medicines or [id number] drugs, vitamins, or herbal supplements? How to take Read the Instructions for Use that come with Mounjaro. Use Mounjaro exactly as your healthcare provider says. Mounjaro is injected under the skin (subcutaneously) of your stomach (abdomen), thigh, or upper arm. Use Mounjaro 1 time each week, at any time of the day. Do not mix insulin and Mounjaro together in the same injection. If you take too much Mounjaro, call your healthcare provider or seek medical advice promptly. Learn more For more information, call 6-255-TfdzdIb ( ) or go to www.The Local. This information does not take the place of talking with your healthcare provider. Be sure to talk to your healthcare provider about Mounjaro and how to take it. Your healthcare provider is the best person to help you decide if Mounjaro is right for you. Mounjaro and its delivery device base are trademarks owned or licensed by [facility] [employer] [facility], its subsidiaries, or affiliates. NIGEL MOSER [employer] FEBRUARY2022 Access ethority Online for additional drug information, tools, and databases. Copyright 5920-5407 [employer]. All rights reserved. Contributor Disclosures (For additional information see Tirzepatide: Drug information) You must carefully read the Consumer Information Use and Disclaimer below in order to understand and correctly use this information. Brand Names: [place] Mounjaro Warning This drug has been shown to cause thyroid cancer in some animals. It is not known if this happens in humans. If thyroid cancer happens, it may be deadly if not found and treated early. Call your doctor right away if you have a neck mass, trouble breathing, trouble swallowing, or have hoarseness that will not go away. Do not use this drug if you have a health problem called Multiple Endocrine Neoplasia syndrome type 2 (MEN 2), or if you or a family member have had thyroid cancer. Have your blood work checked and thyroid ultrasounds as you have been told by your doctor. What is this drug used for? It is used to lower blood sugar in patients with high blood sugar (diabetes). What do I need to tell my doctor BEFORE I take this drug? If you are allergic to this drug; any part of this drug; or any other drugs, foods, or substances. Tell your doctor about the allergy and what signs you had. If you have type 1 diabetes. Do not use this drug to treat type 1 diabetes. If you have ever had pancreatitis. If you have stomach or bowel problems. This is not a list of all drugs or health problems that interact with this drug. Tell your doctor and pharmacist about all of your drugs (prescription or OTC, natural products, vitamins) and health problems. You must check to make sure that it is safe for you to take this drug with all of your drugs and health problems. Do not start, stop, or change the dose of any drug without checking with your doctor. What are some things I need to know or do while I take this drug? Tell all of your health care providers that you take this drug. This includes your doctors, nurses, pharmacists, and dentists. Wear disease medical alert ID (identification). Follow the diet and workout plan that your doctor told you about. Check your blood sugar as you have been told by your doctor. Do not drive if your blood sugar has been low. There is a greater chance of you having a crash. control pills may not work as well to prevent . If you take control pills, you may need to switch to another type of hormone-based control like a vaginal ring if your doctor tells you to. If another type of hormone-based control is not an option, use some other kind of control also, like a condom. Do this for 4 weeks after starting this drug and for 4 weeks each time the dose is raised. This drug may prevent other drugs taken by mouth from getting into the body. If you take other drugs by mouth, you may need to take them at some other time than this drug. Talk with your doctor. It may be harder to control blood sugar during times of stress such as fever, infection, injury, or surgery. A change in physical activity, exercise, or diet may also affect blood sugar. Talk with your doctor before you drink alcohol. Do not share with another person even if the needle has been changed. Sharing your tray or pen may pass infections from one person to another. This includes infections you may not know you have. If you cannot drink liquids by mouth or if you have upset stomach, throwing up, or diarrhea that does not go away; you need to avoid getting dehydrated. Contact your doctor to find out what to do. Dehydration may lead to new or worse kidney problems. A severe and sometimes deadly pancreas problem (pancreatitis) has happened with other drugs like this one. Tell your doctor if you are , plan on getting , or are breast-feeding. You will need to talk about the benefits and risks to you and the baby. What are some side effects that I need to call my doctor about right away? WARNING/CAUTION: Even though it may be rare, some people may have very bad and sometimes deadly side effects when taking a drug. Tell your doctor or get medical help right away if you have any of the following signs or symptoms that may be related to a very bad side effect: Signs of an allergic reaction, like rash; hives; itching; red, swollen, blistered, or peeling skin with or without fever; wheezing; tightness in the chest or throat; trouble breathing, swallowing, or talking; unusual hoarseness; or swelling of the mouth, face, lips, tongue, or throat. Signs of kidney problems like unable to pass urine, change in how much urine is passed, blood in the urine, or a big weight gain. Signs of gallbladder problems like pain in the upper right belly area, right shoulder area, or between the shoulder blades; yellow skin or eyes; fever with chills; bloating; or very upset stomach or throwing up. Signs of a pancreas problem (pancreatitis) like very bad stomach pain, very bad back pain, or very bad upset stomach or throwing up. Dizziness or passing out. A fast heartbeat. Change in eyesight. Low blood sugar can happen. The chance may be raised when this drug is used with other drugs for diabetes. Signs may be dizziness, headache, feeling sleepy or weak, shaking, fast heartbeat, confusion, hunger, or sweating. Call your doctor right away if you have any of these signs. Follow what you have been told to do for low blood sugar. This may include taking glucose tablets, liquid glucose, or some fruit juices. What are some other side effects of this drug? All drugs may cause side effects. However, many people have no side effects or only have minor side effects. Call your doctor or get medical help if any of these side effects or any other side effects bother you or do not go away: Constipation, diarrhea, stomach pain, upset stomach, throwing up, or feeling less hungry. Heartburn. These are not all of the side effects that may occur. If you have questions about side effects, call your doctor. Call your doctor for medical advice about side effects. You may report side effects to your national health agency. How is this drug best taken? Use this drug as ordered by your doctor. Read all information given to you. Follow all instructions closely. It is given as a shot into the fatty part of the skin on the top of the thigh, belly area, or upper arm. If you will be giving yourself the shot, your doctor or nurse will teach you how to give the shot. Keep taking this drug as you have been told by your doctor or other health care provider, even if you feel well. Take the same day each week. Move site where you give the shot each time. Take with or without food. Wash your hands before and after use. Do not use if the solution is leaking or has particles. This drug is colorless to a faint yellow. Do not use if the solution changes color. If you are also using insulin, you may inject this drug and the insulin in the same area of the body but not right next to each other. Do not mix this drug in the same syringe with insulin. Do not move this drug from the pen to a syringe. Each pen is for one use only. Throw away any part of the used pen after the dose is given. Throw away needles in a needle/sharp disposal box. Do not reuse needles or other items. When the box is full, follow all local rules for getting rid of it. Talk with a doctor or pharmacist if you have any questions. What do I do if I miss a dose? If it is within 4 days after the missed dose, take the missed dose and go back to your normal day. If it has been more than 4 days since the missed dose, skip the missed dose and go back to your normal day. Do not take 2 doses at the same time or extra doses. How do I store and/or throw out this drug? Store in a refrigerator. Do not freeze. Do not use if it has been frozen. If needed, each pen may be stored at room temperature for up to 21 days. If you store at room temperature, throw away any part not used after 21 days. Protect from heat. Store in the original container to protect from light. Keep all drugs in a safe place. Keep all drugs out of the reach of children and pets. Throw away unused or drugs. Do not flush down a toilet or pour down a drain unless you are told to do so. Check with your pharmacist if you have questions about the best way to throw out drugs. There may be drug take-back programs in your area. General drug facts If your symptoms or health problems do not get better or if they become worse, call your doctor. Do not share your drugs with others and do not take anyone else's drugs. Some drugs may have another patient information leaflet. If you have any questions about this drug, please talk with your doctor, nurse, pharmacist, or other health care provider. If you think there has been an overdose, call your poison control center or get medical care right away. Be ready to tell or show what was taken, how much, and when it happened. Last Reviewed [id number] Consumer Information Use and Disclaimer This generalized information is a limited summary of diagnosis, treatment, and/or medication information. It is not meant to be comprehensive and should be used as a tool to help the user understand and/or assess potential diagnostic and treatment options. It does NOT include all information about conditions, treatments, medications, side effects, or risks that may apply to a specific patient. It is not intended to be medical advice or a substitute for the medical advice, diagnosis, or treatment of a health care provider based on the health care provider's examination and assessment of a patient's specific and unique circumstances. Patients must speak with a health care provider for complete information about their health, medical questions, and treatment options, including any risks or benefits regarding use of medications. This information does not endorse any treatments or medications as safe, effective, or approved for treating a specific patient. [employer] and its affiliates disclaim any warranty or liability relating to this information or the use thereof. The use of this information is governed by the Terms of Use, available at https://www.Mail[employer].com/en /know/whxskbsg-dlwjfuhihpebn-eun ms. METFORMIN Using Metformin for weight loss: Metformin helps to lower blood glucose levels by reducing the amount of glucose produced and released by the liver, and by increasing insulin sensitivity. It has now been proven to prevent or delay diabetes. Metformin and Type 2 Diabetes Prevention Diabetes Spectrum (diabetesjournals.org) Large cohort studies have shown weight loss benefits associated with metformin therapy. Emerging evidence suggests that metformin-associated weight loss is due to modulation of hypothalamic appetite-regulatory centers, alteration in the gut microbiome, and reversal of consequences of aging. Metformin is also being explored in the management of obesity's sequelae such as hepatic steatosis, obstructive sleep apnea and osteoarthritis. Effectiveness of metformin on weight loss in non-diabetic individuals with obesity - PubMed (nih.gov) Is metformin a wonder drug? - [facility] Common side effects of this medication include nausea, changes in bowel habits, abdominal discomfort, and flatulence. Taking the medication with food will help. Side effects also typically get better with time. Rarely, a severe side effect called lactic acidosis can occur. If you experience malaise, muscle aches, difficulty breathing, or severe abdominal pain, please seek immediate medical attention. When to Take Extended-Release Metformin Metformin HCL is metabolized slowly, over 24 hours, which helps reduce GI side effects. Metformin extended-release is often a good option for people who experience adverse GI symptoms with standard metformin. Metformin HCL should be taken at night, with food. Kassidy Colon MD, clinical director of adult diabetes at [place], explains why timing metformin HCL with the evening meal is so important. In normal physiology, a person's liver often makes glucose overnight, she says. So, it's not uncommon for a person to go to bed with a good blood glucose level and wake up with a higher one because their liver has been releasing sugar [all night]. Metformin turns off or slows down this process, so it can be more effective at night in treating fasting high blood sugar. https://www.[employer]IndustryTrader.com/artic le/830334-bfxz-mc-k-brml-nfabusa qw-eba-yu-kinb-rqchmag-ae-night/ Metformin: Patient drug information Warning Rarely, metformin may cause too much lactic acid in the blood (lactic acidosis). The risk is higher in people who have kidney problems, liver problems, heart failure, use alcohol, or take other drugs like topiramate. The risk is also higher in people who are 65 or older and in people who are having surgery, an exam or test with contrast, or other procedures. If lactic acidosis happens, it can lead to other health problems and can be deadly. Kidney tests may be done while taking this drug. Do not take this drug if you have a very bad infection, low oxygen, or a lot of fluid loss (dehydration). Call your doctor right away if you have signs of too much lactic acid in the blood (lactic acidosis) like fast breathing, fast or slow heartbeat, a heartbeat that does not feel normal, very bad upset stomach or throwing up, feeling very sleepy, shortness of breath, feeling very tired or weak, very bad dizziness, feeling cold, or muscle pain or cramps. What is this drug used for? It is used to lower blood sugar in patients with high blood sugar (diabetes), treatment for PCOS, What do I need to tell my doctor BEFORE I take this drug? If you are allergic to this drug; any part of this drug; or any other drugs, foods, or substances. Tell your doctor about the allergy and what signs you had. If you have any of these health problems: Acidic blood problem, kidney disease, or liver disease. If you have had a recent heart attack or stroke. If you are not able to eat or drink like normal, including before certain procedures or surgery. If you are having an exam or test with contrast or have had one within the past 48 hours, talk with your doctor. This is not a list of all drugs or health problems that interact with this drug. Tell your doctor and pharmacist about all of your drugs (prescription or OTC, natural products, vitamins) and health problems. You must check to make sure that it is safe for you to take this drug with all of your drugs and health problems. Do not start, stop, or change the dose of any drug without checking with your doctor. What are some things I need to know or do while I take this drug? All products: Tell all of your health care providers that you take this drug. This includes your doctors, nurses, pharmacists, and dentists. Talk with your doctor before you drink alcohol. Do not drive if your blood sugar has been low. There is a greater chance of you having a crash. Check your blood sugar as you have been told by your doctor. Have blood work checked as you have been told by the doctor. Talk with the doctor. It may be harder to control blood sugar during times of stress such as fever, infection, injury, or surgery. A change in physical activity, exercise, or diet may also affect blood sugar. Follow the diet and workout plan that your doctor told you about. If diarrhea happens or you are throwing up, call your doctor. You will need to drink more fluids to keep from losing too much fluid. Be careful in hot weather or while being active. Drink lots of fluids to stop fluid loss. Long-term treatment with metformin may lead to low vitamin B-12 levels. If you have ever had low vitamin B-12 levels, talk with your doctor. If you are 65 or older, use this drug with care. You could have more side effects. There is a chance of in people of childbearing age who have not been ovulating. If you want to avoid , use control while taking this drug. Tell your doctor if you are , plan on getting , or are breast-feeding. You will need to talk about the benefits and risks to you and the baby. Extended-release tablets: You may see something that looks like the tablet in your stool. This is normal and not a cause for concern. If you have questions, talk with your doctor. What are some side effects that I need to call my doctor about right away? WARNING/CAUTION: Even though it may be rare, some people may have very bad and sometimes deadly side effects when taking a drug. Tell your doctor or get medical help right away if you have any of the following signs or symptoms that may be related to a very bad side effect: Signs of an allergic reaction, like rash; hives; itching; red, swollen, blistered, or peeling skin with or without fever; wheezing; tightness in the chest or throat; trouble breathing, swallowing, or talking; unusual hoarseness; or swelling of the mouth, face, lips, tongue, or throat. It is common to have stomach problems like upset stomach, throwing up, or diarrhea when you start taking this drug. If you have stomach problems later during treatment, call your doctor right away. This may be a sign of an acid health problem in the blood (lactic acidosis). Low blood sugar can happen. The chance may be raised when this drug is used with other drugs for diabetes. Signs may be dizziness, headache, feeling sleepy or weak, shaking, fast heartbeat, confusion, hunger, or sweating. Call your doctor right away if you have any of these signs. Follow what you have been told to do for low blood sugar. This may include taking glucose tablets, liquid glucose, or some fruit juices. What are some other side effects of this drug? All drugs may cause side effects. However, many people have no side effects or only have minor side effects. Call your doctor or get medical help if any of these side effects or any other side effects bother you or do not go away: Stomach pain or heartburn. Gas. Diarrhea, upset stomach, or throwing up. Feeling tired or weak. Headache. These are not all of the side effects that may occur. If you have questions about side effects, call your doctor. Call your doctor for medical advice about side effects. You may report side effects to your national health agency. How is this drug best taken? Use this drug as ordered by your doctor. Read all information given to you. Follow all instructions closely. All products: Take with meals. Keep taking this drug as you have been told by your doctor or other health care provider, even if you feel well. Extended-release tablets: Take with the evening meal if taking once daily. Swallow whole. Do not chew, break, or crush. If you have trouble swallowing, talk with your doctor. documented in this encounter [facility] 02-09-2024 History of Presen t illness Narrative Obesity Medicine Followup Note This Team Access Model visit is a virtual visit. It required patient-provider interaction for the medical decision making as documented below. Consent was obtained to complete today's distance health visit. I have communicated my name and active licensure. The patient's identity and physical location were verified at the time of this visit. Either the patient or their legal representative phlebotomy services has been informed of the risks and benefits of -- and alternatives to -- treatment through a remote evaluation and consents to proceed with the evaluation remotely. 02/09/2024 Patient HPI: is 48 year old Female who presents with diagnosis of class III severe obesity with PMH inflammatory breast cancer on the right, and Type 2 diabetes mellitus for follow-up evaluation of her obesity and related complications. In our previous visits we have outlined an individualized lifestyle intervention including a personalized nutrition recommendations and physical activity optimization. Tameka Allan is here today for follow up evaluation for nonsurgical metabolic weight loss management. her last office visit was 2 month(s) ago with [place] [facility] registered nurse. Weight loss since last visit: Weight loss goal: 160 lbs Today's weight:232.6 Last weight:236 lbs BMI: 38.12 Today's concerns: Libby has been on backorder Current Obesity Medications: Mounjaro 10 mg subcutaneous weekly injection Metformin 500 mg XR tablet 1 pill daily Reports occasional cravings, however making alternate foods, and feels full, satiety; noted when take medication some nausea within the first 24 hours. Exercise Freq walking 3 days week, steps increased to 10,000 daily, elliptical 10 min, continues with run across [place]; Barriers- travel, eating choice and times had opportunity to pick healthier choices Work-related activity: active Diet Reports blood sugars, fasting 107 average; Healthy food choices Meals 3 Nutrition continues to improve More protein, B 8 , overnight oats, and /or protein shake L 11:30- salad and yogurt protein yogurt D, 6-7 pm protein and veggies Water: 60-80 ounces Coffee: no ; Tea: no Snacking: cheese and sun dried wheat thins 8 pm ?Sleep Duration (<6hr) 6- 7 hours Quality- sleep 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 Stress Degree- increased Cause- work PAST MEDICAL HISTORY Diagnosis Date Atypical mole Benign colon polyp BRCA negative 2014 1 & 2 Diabetes mellitus (HCC) Diabetes mellitus (HCC) Inflammatory breast cancer right breast, stage 3C- in lymphnodes- triple negative Right tibial fracture Snoring FUNCTIONAL STATUS: Walk indoors, such as around the house (1.75 METs) Do light work around the house, such as dusting or washing dishes (2.70 METs) Take care of self, that is eating, dressing, bathing, using the toilet (2.75 METs) Walk a block or two on level ground (2.75 METs) Do moderate work around the house such as vacuuming, sweeping floors, or carrying in groceries (3.50 METs) Climb a flight of stairs or walk up a hill (5.50 METs) Review of Systems: Review of Systems Constitutional: Negative. HENT: Negative. Eyes: No hx of glaucoma Respiratory: Negative. Cardiovascular: Negative. Gastrointestinal: No hx of pancreatitis: On occasion of constipation, Endocrine: No hx of hypothyroidism or thyroid medullary cancer or men syndrome Genitourinary: No hx of renal stones Musculoskeletal: Negative. Allergic/Immunologic: Negative. Neurological: Negative. Hematological: Negative. Psychiatric/Behavioral: Negative. PAST SURGICAL HISTORY Procedure Laterality Date BREAST BIOPSY 07/28/2015 COLONOSCOPY FLX DX W/COLLJ SPEC WHEN PFRMD 11/19/2013 Colonoscopy COLONOSCOPY FLX DX W/COLLJ SPEC WHEN PFRMD N/A 11/22/2016 COLONOSCOPY FLX DX W/COLLJ SPEC WHEN PFRMD 12/13/2019 Colonoscopy 5 year interval EXTRACTION, ERUPTED TOOTH OR EXPOSED ROOT (ELEVATION AND/OR FORCEPS REMOVAL) 1998 wisdom teeth INSERT INTRAUTERINE DEVICE 07/05/2015, 06/22/2020 LAPAROSCOPIC CHOLECYSTECTOMY 08/30/2022 MAST MODF RAD W/AX LYMPH NOD W/WO PECT/ABELARDO MIN Right 02/05/2016 SALPINGECTOMY COMPLETE/PARTIAL UNI/BI SPX 06/22/2020 bilateral salpingectomy, sterilization, IUD insertion Social History Tobacco Use Smoking status: Former Packs/day: 0.25 Years: 5.00 Additional pack years: 0.00 Total pack years: 1.25 Types: Cigarettes Start date: 1995 Quit date: 02/20/2007 Years since quittin.9 Smokeless tobacco: Never Vaping Use Vaping Use: Never used Substance Use Topics Alcohol use: Yes Alcohol/week: 2.0 standard drinks of alcohol Types: 1 Cans of beer, 1 Glasses of wine per week Comment: occassional, social Drug use: No PE BP 118/76 (BP Site: Left Arm, BP Position: Sitting, BP Cuff Size: Large Adult) Pulse 68 Ht 166.4 cm (5' 5.5) Wt 105.5 kg (232 lb 9.6 oz) LMP 07/05/2015 (Exact Date) BMI 38.12 kg/m Physical Exam Vitals reviewed. Constitutional: Appearance: She is obese. HENT: Mouth/Throat: Mouth: Mucous membranes are moist. Cardiovascular: Rate and Rhythm: Normal rate and regular rhythm. Pulses: Normal pulses. Heart sounds: Normal heart sounds. Pulmonary: Effort: Pulmonary effort is normal. Breath sounds: Normal breath sounds. Abdominal: General: Bowel sounds are normal. Palpations: Abdomen is soft. Musculoskeletal: General: Normal range of motion. Cervical back: Normal range of motion. Skin: General: Skin is warm and dry. Capillary Refill: Capillary refill takes less than 2 seconds. Neurological: General: No focal deficit present. Mental Status: She is alert and oriented to person, place, and time. Psychiatric: Mood and Affect: Mood normal. Behavior: Behavior normal. Thought Content: Thought content normal. Judgment: Judgment normal. Results No visits with results within 3 Month(s) from this visit. Latest known visit with results is: Appointment on 02/10/2023 Component Date Value Ref Range Status Hemoglobin A1C 02/10/2023 5.0 4.3 - 5.6 % Final Estimated Average Glucose 02/10/2023 97 mg/dL Final Vitamin D 25 Hydroxy 02/10/2023 55.0 31.0 - 80.0 ng/mL Final Cholesterol, Total 02/10/2023 187 <200 mg/dL Final Triglyceride 02/10/2023 125 <150 mg/dL Final HDL Cholesterol 02/10/2023 39 (L) >39 mg/dL Final Non HDL Cholesterol 02/10/2023 148 (H) <130 mg/dL Final Fasting Time 02/10/2023 12 hrs Final VLDL Cholesterol 02/10/2023 25 <30 mg/dL Final TC:HDL Ratio 02/10/2023 4.79 <5.10 Final LDL Cholesterol 02/10/2023 123 (H) <100 mg/dL Final LDL:HDL Ratio 02/10/2023 3.15 (H) <2.54 Final Protein, Total 02/10/2023 7.4 6.3 - 8.0 g/dL Final Albumin 02/10/2023 4.2 3.9 - 4.9 g/dL Final Calcium, Total 02/10/2023 8.8 8.5 - 10.2 mg/dL Final Bilirubin, Total 02/10/2023 0.4 0.2 - 1.3 mg/dL Final Alkaline Phosphatase 02/10/2023 46 34 - 123 U/L Final AST 02/10/2023 14 13 - 35 U/L Final ALT 02/10/2023 21 7 - 38 U/L Final Glucose 02/10/2023 97 74 - 99 mg/dL Final BUN 02/10/2023 11 7 - 21 mg/dL Final Creatinine 02/10/2023 0.80 0.58 - 0.96 mg/dL Final Sodium 02/10/2023 138 136 - 144 mmol/L Final Potassium 02/10/2023 4.0 3.7 - 5.1 mmol/L Final Chloride 02/10/2023 104 97 - 105 mmol/L Final CO2 02/10/2023 24 22 - 30 mmol/L Final Anion Gap 02/10/2023 10 9 - 18 mmol/L Final Estimated Glomerular Filtration Ra* 02/10/2023 93 >=60 mL/min/1.73m Final WBC 02/10/2023 11.03 (H) 3.70 - 11.00 k/uL Final RBC 02/10/2023 4.77 3.90 - 5.20 m/uL Final Hemoglobin 02/10/2023 15.0 11.5 - 15.5 g/dL Final Hematocrit 02/10/2023 43.0 36.0 - 46.0 % Final MCV 02/10/2023 90.1 80.0 - 100.0 fL Final MCH 02/10/2023 31.4 26.0 - 34.0 pg Final MCHC 02/10/2023 34.9 30.5 - 36.0 g/dL Final RDW-CV 02/10/2023 12.6 11.5 - 15.0 % Final Platelet Count 02/10/2023 240 150 - 400 k/uL Final MPV 02/10/2023 9.8 9.0 - 12.7 fL Final Neutrophils % 02/10/2023 65.9 % Final Abs Neut 02/10/2023 7.26 1.45 - 7.50 k/uL Final Lymphocytes % 02/10/2023 23.4 % Final Abs Lymph 02/10/2023 2.58 1.00 - 4.00 k/uL Final Monocytes % 02/10/2023 7.5 % Final Abs Richardson 02/10/2023 0.83 <0.87 k/uL Final Eosinophils % 02/10/2023 2.1 % Final Abs Eosin 02/10/2023 0.23 <0.46 k/uL Final Basophils % 02/10/2023 0.5 % Final Abs Baso 02/10/2023 0.06 <0.11 k/uL Final Immature Granulocytes % 02/10/2023 0.6 % Final Abs Immature Gran 02/10/2023 0.07 <0.10 k/uL Final NRBC 02/10/2023 0.0 /100 WBC Final Absolute nRBC 02/10/2023 <0.01 <0.01 k/uL Final Diff Type 02/10/2023 Auto Final Impression: 48 year old female with a diagnosis of class III severe obesity here for nonsurgical metabolic weight loss management. Body mass index is 38.12 kg/m . Assessment/Plan: ASSESSMENT/PLAN: 1. Class 3 severe obesity with serious comorbidity in adult, unspecified BMI, unspecified obesity type (HCC) - ICD9: 278.01, ICD10: E66.01 (primary diagnosis) Weight decreasing - Behavioral and pharmacological intervention ' Patient continues to work on her nutrition. We discussed continue with consistency with meals and mealtimes and low-carb low sugar foods. Encourage patient to continue increasing her protein 60 to 90 g daily increase fruits and vegetables and whole grains as well as healthier choices if snacking. Discussed with patient continued techniques to manage maladaptive eating behaviors as well as continue her water 60 to 80 ounces daily. Patient continues with intermittent fasting. Encourage patient to increase her cardio patient does continue with activity however with traveling proposes some challenges we discussed other options to continue increasing her cardio to increase her metabolism as well as continue nonexercise activity Thermo abel. I have also reviewed the possibility using weight loss medications in effort to reduce patient's appetite. I reviewed the different therapeutic options available including phentermine, Qsymia, Contrave, Saxenda, Mounjaro, Ozempic, Trulicity, Zepp bound, Wegovy, topiramate, metformin, bupropion and Effexor which all been associated weight loss. At this time we agreed that the patient's best option at this point to be: We will continue Mounjaro 10 mg subcutaneous weekly injection We will continue metformin 500 mg XR tablet 1 pill daily At this time Mounjaro was on backorder for various doses patient recently just started the 10 mg dose and we will continue to evaluate her response at this dose. Patient verbalized understanding Discussed with patient setting 3 small goals that are SMART (Specific, Measurable, Achievable, Relevant, and Time-Bound), to be evaluated at her next visit. I reviewed with the patient the pros and cons of taking these medications. In addition discussed with patient to have at least 60 g of protein daily and at least 60-80 ounces of water daily. We also discussed monitoring blood pressure and reporting anything over 140/90 or greater. Patient verbalized understanding all questions and concerns addressed. 2. BMI 40.0-44.9, adult (HCC) - ICD9: V85.41, ICD10: Z68.41 Weight decreasing - Behavioral and pharmacological intervention - MOUNJARO 10 MG/0.5 ML SUBCUTANEOUS PEN INJECTOR 3. Dietary counseling and surveillance - ICD9: V65.3, ICD10: Z71.3 Reviewed principles of energy metabolism caloric intake and expenditure and rationale for treatment program. Also reinforced need for reduced calorie low-fat nutrition and increase physical activity. - MOUNJARO 10 MG/0.5 ML SUBCUTANEOUS PEN INJECTOR 4. Type 2 diabetes mellitus with other specified complication, without long-term current use of insulin ([facility]) - ICD9: 250.80, ICD10: E11.69 - Improving control - Continue current medications - Counseled on healthy diet and regular exercise - Discussed need for and benefit of weight loss. BMI 38.12 kg/(m^2) - Discussed diabetic education issues of diabetes complications and monitoring required, hypoglycemic/hyperglycemic symptoms, and medication-specific side effects and monitoring - MOUNJARO 10 MG/0.5 ML SUBCUTANEOUS PEN INJECTOR 5. HALIMA (obstructive sleep apnea) - ICD9: 327.23, ICD10: G47.33 Patient has CPAP fitting this week and will be picking up her machine. - MOUNJARO 10 MG/0.5 ML SUBCUTANEOUS PEN INJECTOR Patient is doing well otherwise, continues lifestyle modification. Patient remains motivated to lose weight. This note was partially generated using [employer] voice recognition system, and there may be some incorrect words, spellings, and punctuation that were not noted in checking the note before saving. -- We discussed several strategies to track food intake and increase mindfulness around eating. We will start with a self-directed attempt in combination with the above recommendations. -- Encouraged consistency of exercise, with an overall goal of 200 minutes per week. This dose of exercise has been effective in weight loss and maintenance. We discussed that cardiovascular exercise is most beneficial for weight loss initially, but it is important to combine resistance training as there is a loss of lean muscle mass with weight loss. Lenore Morelos APRN [facility] Obesity Medicine I spent a total of 30 minutes on the date of the service which included preparing to see the patient, [id number] patient care, completing clinical documentation, obtaining and/or reviewing separately obtained history, performing a medically appropriate examination, counseling and educating the patient/family/caregiver, ordering medications, tests, or procedures, communicating with other HCPs (not separately reported), independently interpreting results (not separately reported), communicating results to the patient/family/caregiver, and care coordination (not separately reported) 5A's- Assess: I assessed behavioral health risk/factors affecting --- Asked about/assess behavioral health risk(s) and factors affecting choice of behavior change goals --- somewhat sedentry lifestyle ---?snacking ---Lack of exercise Advise: clear, specific, personalized behavior change advice. ---I gave very clear, specific, and personalized behavior change adviced, including information about personal health harms and benefits. Agree: Patient agrees with selected appropriate treatment goals and methods to change behavior Assist: Provided IBT w self-help, handouts, teaching skills and support Using behavior change techniques with self-help and Counseling in achieving Goals. Also discussed supplementing with adjunctive medical treatments when appropriate. Arrange: follow up scheduled, handouts given to patient. documented in this encounter [facility] 01-16-2024 Miscellaneous Notes CPAP ordered - APAP documented in this encounter [facility] 12-12-2023 Miscellaneous Notes Pharmacy interfaced requesting the following refill. Requested Prescriptions Pending Prescriptions Disp Refills MOUNJARO 7.5 mg/0.5 mL pen injector [Pharmacy Med Name: MOUNJARO 7.5 MG/0.5 ML PEN] Sig: INJECT 7.5 MG SUBCUTANEOUSLY ONE TIME PER WEEK Next Appointment: 02/09/2024 Patient Phone numbers: [phone] (home) [phone] (work) Request is for script(s) to be escript to pharmacy. Nathaly Tidwell MA documented in this encounter [facility] 12-11-2023 History of Presen t illness Narrative Sleep Study Check-In Documentation Date: December 11, 2023 Name: Tameka Allan Comments: HST was returned in working order with all sleep questionnaires Armond Page Nomad# [id number] , date shipped out 12/08 Tracking mailout:[id number] fedex Tracking return: [id number] November 19, 2023 Standing PSG Orders signed in the last 90 days None Future PSG Orders signed in the last 90 days None All Prior Sleep Studies (past 365 days) Some values may be hidden. Unless noted otherwise, only the newest values recorded on each date are displayed. Sleep Studies HOME SLEEP APNEA TEST (HSAT) Date: 09/29/23 POLYSOMNOGRAM (PSG) Canceled BMI Readings from Last 2 Encounters: 11/17/23 : 38.68 kg/m 11/07/23 : 37.77 kg/m PAST MEDICAL HISTORY Diagnosis Date Atypical mole Benign colon polyp BRCA negative 2014 1 & 2 Diabetes mellitus (HCC) Diabetes mellitus (HCC) Inflammatory breast cancer right breast, stage 3C- in lymphnodes- triple negative Right tibial fracture Snoring The medical record was reviewed to determine if the proposed sleep study conforms to the AASM Practice Parameters for the Indications for Polysomnography and Related Procedures, or if the sleep study is indicated for other reasons. Indications for study: HALIMA suspected without comorbid medical or sleep disorders Sleep study to be performed: Home Sleep Apnea Test (HSAT) Special instructions: None-follow laboratory protocol Wanda Mitchell - Sleep Medicine Staff Note: I have read the above protocol, edited as needed, and agree to the plan. Casey Grubbs III, PhD 4:00 PM, 11/19/2023 documented in this encounter [facility] 11-17-2023 Instructions Lenore Morelos APRN.MANAGER [employer]ING - 11/17/2023 9:06 AM EST Images from the original note were not included. Dear Jerrell: It was a pleasure to care for you today: Here are today's highlights: Nutrition: Continue low carb and low sugar foods Protein 60-80 grams daily Water 60-80 ounces More fruits and veggies Activity: Increase cardio goal [id number] steps Medications: Continue Mounjaro 7.5 mg weekly injection (increasing) (Continue metformin 500 mg tablet daily, per pcp monitor bs) TIRZEPATIDE (MOUNJARO) Tirzepatide (Mounjaro) is a new combination drug (mimics 2 gut hormones, GLP1 and GIP) which has demonstrated superior weight loss >20% body wt loss after 72 week randomized controlled study. It's only approved for diabetes currently, but likely will have approval for weight/obesity next year. Below is more information on it as we discussed. Tirzepatide delays gastric emptying and has the potential to alter absorption of oral medications. This is important in patients taking narrow therapeutic index drugs or drugs that need a minimum blood level for efficacy. If you are taking oral contraceptives switch to a non-oral contraceptive method or add a barrier contraceptive method for 4 weeks after initiation of tirzepatide and for 4 weeks after each dose escalation. Video Instructions for Injecting Mounjaro: https://www.youtube.com/watch?v= nxnhBdyTSZ0 Link to Size [employer] Website Open Energi Medication Guide: https://pi.leonides.com/us/mounjaro -us-mg.pdf?s=mg Written pen instructions: https://uspl.leonides.com/mounjaro/ mounjaro.html#ug0 Tirzepatide: Patient drug information What is Mounjaro? Mounjaro is an injectable prescription medicine that is used along with diet and exercise to improve blood sugar (glucose) in adults with type 2 diabetes mellitus. It is not known if Mounjaro can be used in people who have had inflammation of the pancreas (pancreatitis). Mounjaro is not for use in people with type 1 diabetes. It is not known if Mounjaro is safe and effective for use in children under 18 years of age. It works in multiple ways. It helps: - THE BODY RELEASE INSULIN WHEN BLOOD SUGAR IS HIGH - THE BODY REMOVE EXCESS SUGAR FROM THE BLOOD - STOP THE LIVER FROM MAKING AND RELEASING TOO MUCH SUGAR - REDUCE HOW MUCH FOOD IS EATEN - SLOW DOWN HOW QUICKLY FOOD LEAVES THE STOMACH. THIS LESSENS OVER TIME. You can learn about possible side effects of Mounjaro here. Select Safety Information Changes in vision. Tell your healthcare provider if you have changes in vision during treatment with Mounjaro PURPOSE AND SAFETY SUMMARY WITH WARNINGS Important Facts About Mounjaro ([id number]). It is also known as tirzepatide. Mounjaro is an injectable prescription medicine for adults with type 2 diabetes used along with diet and exercise to improve blood sugar (glucose). It is not known if Mounjaro can be used in people who have had inflammation of the pancreas (pancreatitis). Mounjaro is not for use in people with type 1 diabetes. It is not known if Mounjaro is safe and effective for use in children under 18 years of age. Warnings Mounjaro may cause tumors in the thyroid, including thyroid cancer. Watch for possible symptoms, such as a lump or swelling in the neck, hoarseness, trouble swallowing, or shortness of breath. If you have a symptom, tell your healthcare provider. Do not use Mounjaro if you or any of your family have ever had a type of thyroid cancer called medullary thyroid carcinoma (MTC). Do not use Mounjaro if you have Multiple Endocrine Neoplasia syndrome type 2 (MEN 2). Do not use Mounjaro if you are allergic to tirzepatide or any of the ingredients in Mounjaro. Mounjaro may cause serious side effects, including: Inflammation of the pancreas (pancreatitis). Stop using Mounjaro and call your healthcare provider right away if you have severe pain in your stomach area (abdomen) that will not go away, with or without vomiting. You may feel the pain from your abdomen to your back. Low blood sugar (hypoglycemia). Your risk for getting low blood sugar may be higher if you use Mounjaro with another medicine that can cause low blood sugar, such as a sulfonylurea or insulin. Signs and symptoms of low blood sugar may include dizziness or light-headedness, sweating, confusion or drowsiness, headache, blurred vision, slurred speech, shakiness, fast heartbeat, anxiety, irritability, or mood changes, hunger, weakness and feeling jittery. Serious allergic reactions. Stop using Mounjaro and get medical help right away if you have any symptoms of a serious allergic reaction, including swelling of your face, lips, tongue or throat, problems breathing or swallowing, severe rash or itching, fainting or feeling dizzy, and very rapid heartbeat. Kidney problems (kidney failure). In people who have kidney problems, diarrhea, nausea, and vomiting may cause a loss of fluids (dehydration), which may cause kidney problems to get worse. It is important for you to drink fluids to help reduce your chance of dehydration. Severe stomach problems. Stomach problems, sometimes severe, have been reported in people who use Mounjaro. Tell your healthcare provider if you have stomach problems that are severe or will not go away. Changes in vision. Tell your healthcare provider if you have changes in vision during treatment with Mounjaro. Gallbladder problems. Gallbladder problems have happened in some people who use Mounjaro. Tell your healthcare provider right away if you get symptoms of gallbladder problems, which may include pain in your upper stomach (abdomen), fever, yellowing of skin or eyes (jaundice), and mike-colored stools. Common side effects The most common side effects of Mounjaro include nausea, diarrhea, decreased appetite, vomiting, constipation, indigestion, and stomach (abdominal) pain. These are not all the possible side effects of Mounjaro. Talk to your healthcare provider about any side effect that bothers you or doesn't go away. Tell your healthcare provider if you have any side effects. You can report side effects at 6-832-KWM-1831 or www.fda.gov/medwatch. Before using Your healthcare provider should show you how to use Mounjaro before you use it for the first time. Before you use Mounjaro, talk to your healthcare provider about low blood sugar and how to manage it. Review these questions with your healthcare provider: Do you have other medical conditions, including problems with your pancreas or kidneys, or severe problems with your stomach, such as slowed emptying of your stomach (gastroparesis) or problems digesting food? Do you take other diabetes medicines, such as insulin or sulfonylureas? Do you have a history of diabetic retinopathy? Are you or plan to become or or plan to breastfeed? It is not known if Mounjaro will harm your unborn baby. Do you take control pills by mouth? These may not work as well while using Mounjaro. Your healthcare provider may recommend another type of control when you start Mounjaro or when you increase your dose. Do you take any other prescription medicines or ibfz-zds-zlpxong drugs, vitamins, or herbal supplements? How to take Read the Instructions for Use that come with Mounjaro. Use Mounjaro exactly as your healthcare provider says. Mounjaro is injected under the skin (subcutaneously) of your stomach (abdomen), thigh, or upper arm. Use Mounjaro 1 time each week, at any time of the day. Do not mix insulin and Mounjaro together in the same injection. If you take too much Mounjaro, call your healthcare provider or seek medical advice promptly. Learn more For more information, call 7-686-BpjsjEo ( ) or go to www.[employer].com. This information does not take the place of talking with your healthcare provider. Be sure to talk to your healthcare provider about Mounjaro and how to take it. Your healthcare provider is the best person to help you decide if Mounjaro is right for you. Mounjaro and its delivery device base are trademarks owned or licensed by [employer], its subsidiaries, or affiliates. NIGEL MOSER [employer] FEBRUARY2022 Access [employer] Online for additional drug information, tools, and databases. Copyright 7377-7794 [employer]. All rights reserved. Contributor Disclosures (For additional information see Tirasterpatide: Drug information) You must carefully read the Consumer Information Use and Disclaimer below in order to understand and correctly use this information. Brand Names: US Libby Warning This drug has been shown to cause thyroid cancer in some animals. It is not known if this happens in humans. If thyroid cancer happens, it may be deadly if not found and treated early. Call your doctor right away if you have a neck mass, trouble breathing, trouble swallowing, or have hoarseness that will not go away. Do not use this drug if you have a health problem called Multiple Endocrine Neoplasia syndrome type 2 (MEN 2), or if you or a family member have had thyroid cancer. Have your blood work checked and thyroid ultrasounds as you have been told by your doctor. What is this drug used for? It is used to lower blood sugar in patients with high blood sugar (diabetes). What do I need to tell my doctor BEFORE I take this drug? If you are allergic to this drug; any part of this drug; or any other drugs, foods, or substances. Tell your doctor about the allergy and what signs you had. If you have type 1 diabetes. Do not use this drug to treat type 1 diabetes. If you have ever had pancreatitis. If you have stomach or bowel problems. This is not a list of all drugs or health problems that interact with this drug. Tell your doctor and pharmacist about all of your drugs (prescription or OTC, natural products, vitamins) and health problems. You must check to make sure that it is safe for you to take this drug with all of your drugs and health problems. Do not start, stop, or change the dose of any drug without checking with your doctor. What are some things I need to know or do while I take this drug? Tell all of your health care providers that you take this drug. This includes your doctors, nurses, pharmacists, and dentists. Wear disease medical alert ID (identification). Follow the diet and workout plan that your doctor told you about. Check your blood sugar as you have been told by your doctor. Do not drive if your blood sugar has been low. There is a greater chance of you having a crash. control pills may not work as well to prevent . If you take control pills, you may need to switch to another type of hormone-based control like a vaginal ring if your doctor tells you to. If another type of hormone-based control is not an option, use some other kind of control also, like a condom. Do this for 4 weeks after starting this drug and for 4 weeks each time the dose is raised. This drug may prevent other drugs taken by mouth from getting into the body. If you take other drugs by mouth, you may need to take them at some other time than this drug. Talk with your doctor. It may be harder to control blood sugar during times of stress such as fever, infection, injury, or surgery. A change in physical activity, exercise, or diet may also affect blood sugar. Talk with your doctor before you drink alcohol. Do not share with another person even if the needle has been changed. Sharing your tray or pen may pass infections from one person to another. This includes infections you may not know you have. If you cannot drink liquids by mouth or if you have upset stomach, throwing up, or diarrhea that does not go away; you need to avoid getting dehydrated. Contact your doctor to find out what to do. Dehydration may lead to new or worse kidney problems. A severe and sometimes deadly pancreas problem (pancreatitis) has happened with other drugs like this one. Tell your doctor if you are , plan on getting , or are breast-feeding. You will need to talk about the benefits and risks to you and the baby. What are some side effects that I need to call my doctor about right away? WARNING/CAUTION: Even though it may be rare, some people may have very bad and sometimes deadly side effects when taking a drug. Tell your doctor or get medical help right away if you have any of the following signs or symptoms that may be related to a very bad side effect: Signs of an allergic reaction, like rash; hives; itching; red, swollen, blistered, or peeling skin with or without fever; wheezing; tightness in the chest or throat; trouble breathing, swallowing, or talking; unusual hoarseness; or swelling of the mouth, face, lips, tongue, or throat. Signs of kidney problems like unable to pass urine, change in how much urine is passed, blood in the urine, or a big weight gain. Signs of gallbladder problems like pain in the upper right belly area, right shoulder area, or between the shoulder blades; yellow skin or eyes; fever with chills; bloating; or very upset stomach or throwing up. Signs of a pancreas problem (pancreatitis) like very bad stomach pain, very bad back pain, or very bad upset stomach or throwing up. Dizziness or passing out. A fast heartbeat. Change in eyesight. Low blood sugar can happen. The chance may be raised when this drug is used with other drugs for diabetes. Signs may be dizziness, headache, feeling sleepy or weak, shaking, fast heartbeat, confusion, hunger, or sweating. Call your doctor right away if you have any of these signs. Follow what you have been told to do for low blood sugar. This may include taking glucose tablets, liquid glucose, or some fruit juices. What are some other side effects of this drug? All drugs may cause side effects. However, many people have no side effects or only have minor side effects. Call your doctor or get medical help if any of these side effects or any other side effects bother you or do not go away: Constipation, diarrhea, stomach pain, upset stomach, throwing up, or feeling less hungry. Heartburn. These are not all of the side effects that may occur. If you have questions about side effects, call your doctor. Call your doctor for medical advice about side effects. You may report side effects to your national health agency. How is this drug best taken? Use this drug as ordered by your doctor. Read all information given to you. Follow all instructions closely. It is given as a shot into the fatty part of the skin on the top of the thigh, belly area, or upper arm. If you will be giving yourself the shot, your doctor or nurse will teach you how to give the shot. Keep taking this drug as you have been told by your doctor or other health care provider, even if you feel well. Take the same day each week. Move site where you give the shot each time. Take with or without food. Wash your hands before and after use. Do not use if the solution is leaking or has particles. This drug is colorless to a faint yellow. Do not use if the solution changes color. If you are also using insulin, you may inject this drug and the insulin in the same area of the body but not right next to each other. Do not mix this drug in the same syringe with insulin. Do not move this drug from the pen to a syringe. Each pen is for one use only. Throw away any part of the used pen after the dose is given. Throw away needles in a needle/sharp disposal box. Do not reuse needles or other items. When the box is full, follow all local rules for getting rid of it. Talk with a doctor or pharmacist if you have any questions. What do I do if I miss a dose? If it is within 4 days after the missed dose, take the missed dose and go back to your normal day. If it has been more than 4 days since the missed dose, skip the missed dose and go back to your normal day. Do not take 2 doses at the same time or extra doses. How do I store and/or throw out this drug? Store in a refrigerator. Do not freeze. Do not use if it has been frozen. If needed, each pen may be stored at room temperature for up to 21 days. If you store at room temperature, throw away any part not used after 21 days. Protect from heat. Store in the original container to protect from light. Keep all drugs in a safe place. Keep all drugs out of the reach of children and pets. Throw away unused or drugs. Do not flush down a toilet or pour down a drain unless you are told to do so. Check with your pharmacist if you have questions about the best way to throw out drugs. There may be drug take-back programs in your area. General drug facts If your symptoms or health problems do not get better or if they become worse, call your doctor. Do not share your drugs with others and do not take anyone else's drugs. Some drugs may have another patient information leaflet. If you have any questions about this drug, please talk with your doctor, nurse, pharmacist, or other health care provider. If you think there has been an overdose, call your poison control center or get medical care right away. Be ready to tell or show what was taken, how much, and when it happened. Last Reviewed [id number] Consumer Information Use and Disclaimer This generalized information is a limited summary of diagnosis, treatment, and/or medication information. It is not meant to be comprehensive and should be used as a tool to help the user understand and/or assess potential diagnostic and treatment options. It does NOT include all information about conditions, treatments, medications, side effects, or risks that may apply to a specific patient. It is not intended to be medical advice or a substitute for the medical advice, diagnosis, or treatment of a health care provider based on the health care provider's examination and assessment of a patient's specific and unique circumstances. Patients must speak with a health care provider for complete information about their health, medical questions, and treatment options, including any risks or benefits regarding use of medications. This information does not endorse any treatments or medications as safe, effective, or approved for treating a specific patient. [employer] and its affiliates disclaim any warranty or liability relating to this information or the use thereof. The use of this information is governed by the Terms of Use, available at https://www.Mail'Inside.com/en /know/blgosrhk-otpxhxgahmvcr-pob ms. documented in this encounter [facility] 11-17-2023 History of Presen t illness Narrative Obesity Medicine Followup Note 11/17/2023 Patient HPI: is 47 year old Female who presents with diagnosis of class III severe obesity with PMH inflammatory breast cancer on the right, and Type 2 diabetes mellitus for follow-up evaluation of her obesity and related complications. In our previous visits we have outlined an individualized lifestyle intervention including a personalized nutrition recommendations and physical activity optimization. Tameka Allan is here today for follow up evaluation for nonsurgical metabolic weight loss management. her last office visit was3 month(s) ago with advanced practice registered nurse. Weight loss since last visit: Today's weight:236 lbs Last weight:234.4 BMI: 38.68 Today's concerns: Challenges obtaining the ozempic Current Obesity Medications: Mounjaro 5 mg weekly injection Metformin 500 mg tablet 1 daily per PCP -- reports no suppression of appetite and no increase in satiety -- reports no side effects with the Mounjaro or metformin. Exercise Freq-average steps walking 3 days more than 20 min, average 5000, elliptical 10 min ; doing run across [place] with different challenges - during holiday's tapered off and now restarting Barriers-work and travel Work-related activity: Sedentary/active Diet Healthy food choices 3 meals B -7-8 toast 2 slices low carb bread with eggs L 11:30 at home rotisserie chicken and guacamole and fruit berries and grapes D 6-7 chic pea pasta, chicken with peas/ashton; veggies Water- 60-80 ounces Coffee 10 ounces black No soda Snacking- evening occasional beer Structure- more structure ?Sleep Duration (<6hr)6-8 hours Quality- pending sleep study 12-09-23 Stress Degree- some Cause- coping PAST MEDICAL HISTORY Diagnosis Date Atypical mole Benign colon polyp BRCA negative 2014 1 & 2 Diabetes mellitus (HCC) Diabetes mellitus (HCC) Inflammatory breast cancer right breast, stage 3C- in lymphnodes- triple negative Right tibial fracture Snoring FUNCTIONAL STATUS: Walk indoors, such as around the house (1.75 METs) Do light work around the house, such as dusting or washing dishes (2.70 METs) Take care of self, that is eating, dressing, bathing, using the toilet (2.75 METs) Walk a block or two on level ground (2.75 METs) Do moderate work around the house such as vacuuming, sweeping floors, or carrying in groceries (3.50 METs) Review of Systems: Review of Systems Constitutional: Negative. HENT: Negative. Eyes: No hx of glaucoma Respiratory: Negative. Cardiovascular: Negative. Gastrointestinal: Positive for diarrhea. Occasional diarrhea No abdominal pain or hx of pancreatitis Endocrine: No hx of thyroid medullary cancer or men syndrome No hx of hypothyroidism Genitourinary: No hx of renal stones Musculoskeletal: Negative. Skin: Negative. Allergic/Immunologic: Negative. Neurological: Negative. Hematological: Negative. Psychiatric/Behavioral: Negative. PAST SURGICAL HISTORY Procedure Laterality Date BREAST BIOPSY 07/28/2015 COLONOSCOPY FLX DX W/COLLJ SPEC WHEN PFRMD 11/19/2013 Colonoscopy COLONOSCOPY FLX DX W/COLLJ SPEC WHEN PFRMD N/A 11/22/2016 COLONOSCOPY FLX DX W/COLLJ SPEC WHEN PFRMD 12/13/2019 Colonoscopy 5 year interval EXTRACTION, ERUPTED TOOTH OR EXPOSED ROOT (ELEVATION AND/OR FORCEPS REMOVAL) 1998 wisdom teeth INSERT INTRAUTERINE DEVICE 07/05/2015, 06/22/2020 LAPAROSCOPIC CHOLECYSTECTOMY 08/30/2022 MAST MODF RAD W/AX LYMPH NOD W/WO PECT/ABELARDO MIN Right 02/05/2016 SALPINGECTOMY COMPLETE/PARTIAL UNI/BI SPX 06/22/2020 bilateral salpingectomy, sterilization, IUD insertion Social History Tobacco Use Smoking status: Former Packs/day: 0.25 Years: 5.00 Additional pack years: 0.00 Total pack years: 1.25 Types: Cigarettes Start date: 1995 Quit date: 02/20/2007 Years since quittin.7 Smokeless tobacco: Never Vaping Use Vaping Use: Never used Substance Use Topics Alcohol use: Yes Alcohol/week: 2.0 standard drinks of alcohol Types: 1 Cans of beer, 1 Glasses of wine per week Comment: occassional, social Drug use: No PE BP 116/78 (BP Site: Left Arm, BP Position: Sitting, BP Cuff Size: Large Adult) Pulse 69 Ht 166.4 cm (5' 5.5) Wt 107 kg (236 lb) LMP 07/05/2015 (Exact Date) BMI 38.68 kg/m Physical Exam Vitals reviewed. Constitutional: Appearance: She is obese. HENT: Mouth/Throat: Mouth: Mucous membranes are moist. Cardiovascular: Rate and Rhythm: Normal rate and regular rhythm. Pulses: Normal pulses. Heart sounds: Normal heart sounds. Pulmonary: Effort: Pulmonary effort is normal. Breath sounds: Normal breath sounds. Abdominal: General: Bowel sounds are normal. Palpations: Abdomen is soft. Musculoskeletal: General: Normal range of motion. Cervical back: Normal range of motion. Skin: General: Skin is warm and dry. Capillary Refill: Capillary refill takes less than 2 seconds. Neurological: General: No focal deficit present. Mental Status: She is alert and oriented to person, place, and time. Psychiatric: Mood and Affect: Mood normal. Behavior: Behavior normal. Thought Content: Thought content normal. Judgment: Judgment normal. Results No visits with results within 3 Month(s) from this visit. Latest known visit with results is: Appointment on 02/10/2023 Component Date Value Ref Range Status Hemoglobin A1C 02/10/2023 5.0 4.3 - 5.6 % Final Estimated Average Glucose 02/10/2023 97 mg/dL Final Vitamin D 25 Hydroxy 02/10/2023 55.0 31.0 - 80.0 ng/mL Final Cholesterol, Total 02/10/2023 187 <200 mg/dL Final Triglyceride 02/10/2023 125 <150 mg/dL Final HDL Cholesterol 02/10/2023 39 (L) >39 mg/dL Final Non HDL Cholesterol 02/10/2023 148 (H) <130 mg/dL Final Fasting Time 02/10/2023 12 hrs Final VLDL Cholesterol 02/10/2023 25 <30 mg/dL Final TC:HDL Ratio 02/10/2023 4.79 <5.10 Final LDL Cholesterol 02/10/2023 123 (H) <100 mg/dL Final LDL:HDL Ratio 02/10/2023 3.15 (H) <2.54 Final Protein, Total 02/10/2023 7.4 6.3 - 8.0 g/dL Final Albumin 02/10/2023 4.2 3.9 - 4.9 g/dL Final Calcium, Total 02/10/2023 8.8 8.5 - 10.2 mg/dL Final Bilirubin, Total 02/10/2023 0.4 0.2 - 1.3 mg/dL Final Alkaline Phosphatase 02/10/2023 46 34 - 123 U/L Final AST 02/10/2023 14 13 - 35 U/L Final ALT 02/10/2023 21 7 - 38 U/L Final Glucose 02/10/2023 97 74 - 99 mg/dL Final BUN 02/10/2023 11 7 - 21 mg/dL Final Creatinine 02/10/2023 0.80 0.58 - 0.96 mg/dL Final Sodium 02/10/2023 138 136 - 144 mmol/L Final Potassium 02/10/2023 4.0 3.7 - 5.1 mmol/L Final Chloride 02/10/2023 104 97 - 105 mmol/L Final CO2 02/10/2023 24 22 - 30 mmol/L Final Anion Gap 02/10/2023 10 9 - 18 mmol/L Final Estimated Glomerular Filtration Ra* 02/10/2023 93 >=60 mL/min/1.73m Final WBC 02/10/2023 11.03 (H) 3.70 - 11.00 k/uL Final RBC 02/10/2023 4.77 3.90 - 5.20 m/uL Final Hemoglobin 02/10/2023 15.0 11.5 - 15.5 g/dL Final Hematocrit 02/10/2023 43.0 36.0 - 46.0 % Final MCV 02/10/2023 90.1 80.0 - 100.0 fL Final MCH 02/10/2023 31.4 26.0 - 34.0 pg Final MCHC 02/10/2023 34.9 30.5 - 36.0 g/dL Final RDW-CV 02/10/2023 12.6 11.5 - 15.0 % Final Platelet Count 02/10/2023 240 150 - 400 k/uL Final MPV 02/10/2023 9.8 9.0 - 12.7 fL Final Neutrophils % 02/10/2023 65.9 % Final Abs Neut 02/10/2023 7.26 1.45 - 7.50 k/uL Final Lymphocytes % 02/10/2023 23.4 % Final Abs Lymph 02/10/2023 2.58 1.00 - 4.00 k/uL Final Monocytes % 02/10/2023 7.5 % Final Abs Richardson 02/10/2023 0.83 <0.87 k/uL Final Eosinophils % 02/10/2023 2.1 % Final Abs Eosin 02/10/2023 0.23 <0.46 k/uL Final Basophils % 02/10/2023 0.5 % Final Abs Baso 02/10/2023 0.06 <0.11 k/uL Final Immature Granulocytes % 02/10/2023 0.6 % Final Abs Immature Gran 02/10/2023 0.07 <0.10 k/uL Final NRBC 02/10/2023 0.0 /100 WBC Final Absolute nRBC 02/10/2023 <0.01 <0.01 k/uL Final Diff Type 02/10/2023 Auto Final Impression: 47 year old female with a diagnosis of class III severe obesity here for nonsurgical metabolic weight loss management. Body mass index is 38.68 kg/m . Assessment/Plan: ASSESSMENT/PLAN: 1. Class 3 severe obesity with serious comorbidity in adult, unspecified BMI, unspecified obesity type (HCC) - ICD9: 278.01, ICD10: E66.01 (primary diagnosis) Weight increasing - Behavioral and pharmacological intervention Counseled patient at length and we discussed more low-carb low sugar foods and increasing her protein. Patient continues with consistent meals and mealtimes and we discussed continuing with intermittent fasting. Encourage patient to avoid snacking in the evening and we discussed some healthier options. Strongly encourage patient to start to increase her cardio, we discussed other options for indoors as well as continue nonexercise activity thrombogenesis and continue her activity challenge. I have also reviewed the possibility using weight loss medications in effort to reduce patient's appetite. I reviewed the different therapeutic options available including phentermine, Qsymia, Contrave, Saxenda, topiramate, metformin, bupropion and Effexor which all been associated weight loss. At this time we agreed that the patient's best option at this point to be: Increase Mounjaro to 7.5 mg subcutaneous weekly injection Continue metformin as prescribed 100 mg tablet daily per PCP Education included discussing thyroid C-cell tumor risk including Medullary Thyroid Carcinoma (MTC).Though studies have shown increased risk of medullary cell cancers only in rats. Patient denies family history of MTC and Multiple Endocrine Neoplasia Syndrome type 2 (MEN 2). I discussed that this medication is associated with acute pancreatitis, including fatal and non-fatal hemorrhagic or necrotizing pancreatitis. Pt does not have a hx of pancreatitis. Educated patient to monitor for signs such as persistent severe abdominal pain, sometimes radiating to the back, with or without vomiting. If this occurs, stop medication immediately and go to ER. The most common adverse reactions include nausea, vomiting, diarrhea, constipation and injection site erythema. These may dissipate over time. Helpful tip GLP-1 RA increases beta cell proliferation. Discussed with patient setting 3 small goals that are SMART (Specific, Measurable, Achievable, Relevant, and Time-Bound), to be evaluated at her next visit. I reviewed with the patient the pros and cons of taking these medications. In addition discussed with patient to have at least 60 g of protein daily and at least 60-80 ounces of water daily. We also discussed monitoring blood pressure and reporting anything over 140/90 or greater. Patient verbalized understanding all questions and concerns addressed. 2. Dietary counseling and surveillance - ICD9: V65.3, ICD10: Z71.3 Reviewed principles of energy metabolism caloric intake and expenditure and rationale for treatment program. Also reinforced need for reduced calorie low-fat nutrition and increase physical activity. - TIRZEPATIDE 7.5 MG/0.5 ML SUBCUTANEOUS PEN INJECTOR 3. Type 2 diabetes mellitus with other specified complication, without long-term current use of insulin (HCC) - ICD9: 250.80, ICD10: E11.69 - Improving control - Continue current medications - Counseled on healthy diet and regular exercise - Discussed need for and benefit of weight loss. BMI 38.68 kg/(m^2) - Discussed diabetic education issues of medication-specific side effects and monitoring - TIRZEPATIDE 7.5 MG/0.5 ML SUBCUTANEOUS PEN INJECTOR 4. HALIMA (obstructive sleep apnea) - ICD9: 327.23, ICD10: G47.33 Continue follow-up with sleep medicine - TIRZEPATIDE 7.5 MG/0.5 ML SUBCUTANEOUS PEN INJECTOR 5. BMI 40.0-44.9, adult (HCC) - ICD9: V85.41, ICD10: Z68.41 Weight increasing patient weight increasing patient BMI is 38.68 today - Behavioral and pharmacological intervention - TIRZEPATIDE 7.5 MG/0.5 ML SUBCUTANEOUS PEN INJECTOR Patient is doing well otherwise, continues lifestyle modification. Patient remains motivated to lose weight. This note was partially generated using [employer] voice recognition system, and there may be some incorrect words, spellings, and punctuation that were not noted in checking the note before saving. -- We discussed several strategies to track food intake and increase mindfulness around eating. We will start with a self-directed attempt in combination with the above recommendations. -- Encouraged consistency of exercise, with an overall goal of 200 minutes per week. This dose of exercise has been effective in weight loss and maintenance. We discussed that cardiovascular exercise is most beneficial for weight loss initially, but it is important to combine resistance training as there is a loss of lean muscle mass with weight loss. Lenore Morelos APRN [facility] Obesity Medicine I spent a total of 30 minutes on the date of the service which included preparing to see the patient, [id number] patient care, completing clinical documentation, obtaining and/or reviewing separately obtained history, performing a medically appropriate examination, counseling and educating the patient/family/caregiver, ordering medications, tests, or procedures, communicating with other HCPs (not separately reported), independently interpreting results (not separately reported), communicating results to the patient/family/caregiver, and care coordination (not separately reported) 5A's- Assess: I assessed behavioral health risk/factors affecting --- Asked about/assess behavioral health risk(s) and factors affecting choice of behavior change goals --- somewhat sedentry lifestyle ---?snacking ---Lack of exercise Advise: clear, specific, personalized behavior change advice. ---I gave very clear, specific, and personalized behavior change adviced, including information about personal health harms and benefits. Agree: Patient agrees with selected appropriate treatment goals and methods to change behavior Assist: Provided IBT w self-help, handouts, teaching skills and support Using behavior change techniques with self-help and Counseling in achieving Goals. Also discussed supplementing with adjunctive medical treatments when appropriate. Arrange: follow up scheduled, handouts given to patient. documented in this encounter [facility] 09-23-2023 Miscellaneous Notes Pharmacy interfaced requesting the following refill. Requested Prescriptions Pending Prescriptions Disp Refills MOUNJARO 2.5 mg/0.5 mL pen injector [Pharmacy Med Name: MOUNJARO 2.5 MG/0.5 ML PEN] Sig: INJECT 2.5 MG SUBCUTANEOUSLY WEEKLY Next Appointment: 11/17/2023 Patient Phone numbers: [phone] (home) [phone] (work) Request is for script(s) to be escript to pharmacy. Nathaly Tidwell MA documented in this encounter [facility] 08-27-2023 Instructions Lenore Morelos APRN.MANAGER BUSINESS [employer]ANNING - 08/27/2023 9:38 AM EST Images from the original note were not included. Dear Ms. Zambranoton It was a pleasure to care for you today: Here are today's highlights: Nutrition: More meal Prep and keep journal Low carb and low sugar foods Plain water 60-80 ounces daily Protein 60-90 grams daily Activity: Increase cardio- swimming, light arm weights, increase walking, dancing Medications: Mounjaro 2.5 mg subcutaneous weekly injection TIRZEPATIDE (MOUNJARO) Tirzepatide (Mounjaro) is a new combination drug (mimics 2 gut hormones, GLP1 and GIP) which has demonstrated superior weight loss >20% body wt loss after 72 week randomized controlled study. It's only approved for diabetes currently, but likely will have approval for weight/obesity next year. Below is more information on it as we discussed. Tirzepatide delays gastric emptying and has the potential to alter absorption of oral medications. This is important in patients taking narrow therapeutic index drugs or drugs that need a minimum blood level for efficacy. If you are taking oral contraceptives switch to a non-oral contraceptive method or add a barrier contraceptive method for 4 weeks after initiation of tirzepatide and for 4 weeks after each dose escalation. Video Instructions for Injecting Mounjaro: https://www.[employer]ube.com/watch?v= nxnhBdyTSZ0 Savings Card: https://www.[employer] Local/savings -resources Link to [employer] Website [employer] Medication Guide: https://pi.[employer]/us/mounjaro -us-mg.pdf?s=mg Written pen instructions: https://uspl.[employer]ader.com/mounjaro/ mounjaro.html#ug0 Tirzepatide: Patient drug information What is Mounjaro? Mounjaro is an injectable prescription medicine that is used along with diet and exercise to improve blood sugar (glucose) in adults with type 2 diabetes mellitus. It is not known if Mounjaro can be used in people who have had inflammation of the pancreas (pancreatitis). Mounjaro is not for use in people with type 1 diabetes. It is not known if Mounjaro is safe and effective for use in children under 18 years of age. It works in multiple ways. It helps: - THE BODY RELEASE INSULIN WHEN BLOOD SUGAR IS HIGH - THE BODY REMOVE EXCESS SUGAR FROM THE BLOOD - STOP THE LIVER FROM MAKING AND RELEASING TOO MUCH SUGAR - REDUCE HOW MUCH FOOD IS EATEN - SLOW DOWN HOW QUICKLY FOOD LEAVES THE STOMACH. THIS LESSENS OVER TIME. You can learn about possible side effects of Mounjaro here. Select Safety Information Changes in vision. Tell your healthcare provider if you have changes in vision during treatment with Mounjaro PURPOSE AND SAFETY SUMMARY WITH WARNINGS Important Facts About Mounjaro ([id number]). It is also known as tirzepatide. Mounjaro is an injectable prescription medicine for adults with type 2 diabetes used along with diet and exercise to improve blood sugar (glucose). It is not known if Mounjaro can be used in people who have had inflammation of the pancreas (pancreatitis). Mounjaro is not for use in people with type 1 diabetes. It is not known if Mounjaro is safe and effective for use in children under 18 years of age. Warnings Mounjaro may cause tumors in the thyroid, including thyroid cancer. Watch for possible symptoms, such as a lump or swelling in the neck, hoarseness, trouble swallowing, or shortness of breath. If you have a symptom, tell your healthcare provider. Do not use Mounjaro if you or any of your family have ever had a type of thyroid cancer called medullary thyroid carcinoma (MTC). Do not use Mounjaro if you have Multiple Endocrine Neoplasia syndrome type 2 (MEN 2). Do not use Mounjaro if you are allergic to tirzepatide or any of the ingredients in Mounjaro. Mounjaro may cause serious side effects, including: Inflammation of the pancreas (pancreatitis). Stop using Mounjaro and call your healthcare provider right away if you have severe pain in your stomach area (abdomen) that will not go away, with or without vomiting. You may feel the pain from your abdomen to your back. Low blood sugar (hypoglycemia). Your risk for getting low blood sugar may be higher if you use Mounjaro with another medicine that can cause low blood sugar, such as a sulfonylurea or insulin. Signs and symptoms of low blood sugar may include dizziness or light-headedness, sweating, confusion or drowsiness, headache, blurred vision, slurred speech, shakiness, fast heartbeat, anxiety, irritability, or mood changes, hunger, weakness and feeling jittery. Serious allergic reactions. Stop using Mounjaro and get medical help right away if you have any symptoms of a serious allergic reaction, including swelling of your face, lips, tongue or throat, problems breathing or swallowing, severe rash or itching, fainting or feeling dizzy, and very rapid heartbeat. Kidney problems (kidney failure). In people who have kidney problems, diarrhea, nausea, and vomiting may cause a loss of fluids (dehydration), which may cause kidney problems to get worse. It is important for you to drink fluids to help reduce your chance of dehydration. Severe stomach problems. Stomach problems, sometimes severe, have been reported in people who use Mounjaro. Tell your healthcare provider if you have stomach problems that are severe or will not go away. Changes in vision. Tell your healthcare provider if you have changes in vision during treatment with Mounjaro. Gallbladder problems. Gallbladder problems have happened in some people who use Mounjaro. Tell your healthcare provider right away if you get symptoms of gallbladder problems, which may include pain in your upper stomach (abdomen), fever, yellowing of skin or eyes (jaundice), and mike-colored stools. Common side effects The most common side effects of Mounjaro include nausea, diarrhea, decreased appetite, vomiting, constipation, indigestion, and stomach (abdominal) pain. These are not all the possible side effects of Mounjaro. Talk to your healthcare provider about any side effect that bothers you or doesn't go away. Tell your healthcare provider if you have any side effects. You can report side effects at 0-800-EEG-8503 or www.fda.gov/medwatch. Before using Your healthcare provider should show you how to use Mounjaro before you use it for the first time. Before you use Mounjaro, talk to your healthcare provider about low blood sugar and how to manage it. Review these questions with your healthcare provider: Do you have other medical conditions, including problems with your pancreas or kidneys, or severe problems with your stomach, such as slowed emptying of your stomach (gastroparesis) or problems digesting food? Do you take other diabetes medicines, such as insulin or sulfonylureas? Do you have a history of diabetic retinopathy? Are you or plan to become or or plan to breastfeed? It is not known if Mounjaro will harm your unborn baby. Do you take control pills by mouth? These may not work as well while using Mounjaro. Your healthcare provider may recommend another type of control when you start Mounjaro or when you increase your dose. Do you take any other prescription medicines or bszk-ind-hwlyqip drugs, vitamins, or herbal supplements? How to take Read the Instructions for Use that come with Mounjaro. Use Mounjaro exactly as your healthcare provider says. Mounjaro is injected under the skin (subcutaneously) of your stomach (abdomen), thigh, or upper arm. Use Mounjaro 1 time each week, at any time of the day. Do not mix insulin and Mounjaro together in the same injection. If you take too much Mounjaro, call your healthcare provider or seek medical advice promptly. Learn more For more information, call 6-198-KtbdgQn ( ) or go to www.[employer].com. This information does not take the place of talking with your healthcare provider. Be sure to talk to your healthcare provider about Mounjaro and how to take it. Your healthcare provider is the best person to help you decide if Mounjaro is right for you. Mounjaro and its delivery device base are trademarks owned or licensed by [employer], its subsidiaries, or affiliates. NIGEL MOSER [employer] FEBRUARY2022 Access [employer] Online for additional drug information, tools, and databases. Copyright [employer]. All rights reserved. Contributor Disclosures (For additional information see Tirzepatide: Drug information) You must carefully read the Consumer Information Use and Disclaimer below in order to understand and correctly use this information. Brand Names: [place] Mounjaro Warning This drug has been shown to cause thyroid cancer in some animals. It is not known if this happens in humans. If thyroid cancer happens, it may be deadly if not found and treated early. Call your doctor right away if you have a neck mass, trouble breathing, trouble swallowing, or have hoarseness that will not go away. Do not use this drug if you have a health problem called Multiple Endocrine Neoplasia syndrome type 2 (MEN 2), or if you or a family member have had thyroid cancer. Have your blood work checked and thyroid ultrasounds as you have been told by your doctor. What is this drug used for? It is used to lower blood sugar in patients with high blood sugar (diabetes). What do I need to tell my doctor BEFORE I take this drug? If you are allergic to this drug; any part of this drug; or any other drugs, foods, or substances. Tell your doctor about the allergy and what signs you had. If you have type 1 diabetes. Do not use this drug to treat type 1 diabetes. If you have ever had pancreatitis. If you have stomach or bowel problems. This is not a list of all drugs or health problems that interact with this drug. Tell your doctor and pharmacist about all of your drugs (prescription or OTC, natural products, vitamins) and health problems. You must check to make sure that it is safe for you to take this drug with all of your drugs and health problems. Do not start, stop, or change the dose of any drug without checking with your doctor. What are some things I need to know or do while I take this drug? Tell all of your health care providers that you take this drug. This includes your doctors, nurses, pharmacists, and dentists. Wear disease medical alert ID (identification). Follow the diet and workout plan that your doctor told you about. Check your blood sugar as you have been told by your doctor. Do not drive if your blood sugar has been low. There is a greater chance of you having a crash. control pills may not work as well to prevent . If you take control pills, you may need to switch to another type of hormone-based control like a vaginal ring if your doctor tells you to. If another type of hormone-based control is not an option, use some other kind of control also, like a condom. Do this for 4 weeks after starting this drug and for 4 weeks each time the dose is raised. This drug may prevent other drugs taken by mouth from getting into the body. If you take other drugs by mouth, you may need to take them at some other time than this drug. Talk with your doctor. It may be harder to control blood sugar during times of stress such as fever, infection, injury, or surgery. A change in physical activity, exercise, or diet may also affect blood sugar. Talk with your doctor before you drink alcohol. Do not share with another person even if the needle has been changed. Sharing your tray or pen may pass infections from one person to another. This includes infections you may not know you have. If you cannot drink liquids by mouth or if you have upset stomach, throwing up, or diarrhea that does not go away; you need to avoid getting dehydrated. Contact your doctor to find out what to do. Dehydration may lead to new or worse kidney problems. A severe and sometimes deadly pancreas problem (pancreatitis) has happened with other drugs like this one. Tell your doctor if you are , plan on getting , or are breast-feeding. You will need to talk about the benefits and risks to you and the baby. What are some side effects that I need to call my doctor about right away? WARNING/CAUTION: Even though it may be rare, some people may have very bad and sometimes deadly side effects when taking a drug. Tell your doctor or get medical help right away if you have any of the following signs or symptoms that may be related to a very bad side effect: Signs of an allergic reaction, like rash; hives; itching; red, swollen, blistered, or peeling skin with or without fever; wheezing; tightness in the chest or throat; trouble breathing, swallowing, or talking; unusual hoarseness; or swelling of the mouth, face, lips, tongue, or throat. Signs of kidney problems like unable to pass urine, change in how much urine is passed, blood in the urine, or a big weight gain. Signs of gallbladder problems like pain in the upper right belly area, right shoulder area, or between the shoulder blades; yellow skin or eyes; fever with chills; bloating; or very upset stomach or throwing up. Signs of a pancreas problem (pancreatitis) like very bad stomach pain, very bad back pain, or very bad upset stomach or throwing up. Dizziness or passing out. A fast heartbeat. Change in eyesight. Low blood sugar can happen. The chance may be raised when this drug is used with other drugs for diabetes. Signs may be dizziness, headache, feeling sleepy or weak, shaking, fast heartbeat, confusion, hunger, or sweating. Call your doctor right away if you have any of these signs. Follow what you have been told to do for low blood sugar. This may include taking glucose tablets, liquid glucose, or some fruit juices. What are some other side effects of this drug? All drugs may cause side effects. However, many people have no side effects or only have minor side effects. Call your doctor or get medical help if any of these side effects or any other side effects bother you or do not go away: Constipation, diarrhea, stomach pain, upset stomach, throwing up, or feeling less hungry. Heartburn. These are not all of the side effects that may occur. If you have questions about side effects, call your doctor. Call your doctor for medical advice about side effects. You may report side effects to your national health agency. How is this drug best taken? Use this drug as ordered by your doctor. Read all information given to you. Follow all instructions closely. It is given as a shot into the fatty part of the skin on the top of the thigh, belly area, or upper arm. If you will be giving yourself the shot, your doctor or nurse will teach you how to give the shot. Keep taking this drug as you have been told by your doctor or other health care provider, even if you feel well. Take the same day each week. Move site where you give the shot each time. Take with or without food. Wash your hands before and after use. Do not use if the solution is leaking or has particles. This drug is colorless to a faint yellow. Do not use if the solution changes color. If you are also using insulin, you may inject this drug and the insulin in the same area of the body but not right next to each other. Do not mix this drug in the same syringe with insulin. Do not move this drug from the pen to a syringe. Each pen is for one use only. Throw away any part of the used pen after the dose is given. Throw away needles in a needle/sharp disposal box. Do not reuse needles or other items. When the box is full, follow all local rules for getting rid of it. Talk with a doctor or pharmacist if you have any questions. What do I do if I miss a dose? If it is within 4 days after the missed dose, take the missed dose and go back to your normal day. If it has been more than 4 days since the missed dose, skip the missed dose and go back to your normal day. Do not take 2 doses at the same time or extra doses. How do I store and/or throw out this drug? Store in a refrigerator. Do not freeze. Do not use if it has been frozen. If needed, each pen may be stored at room temperature for up to 21 days. If you store at room temperature, throw away any part not used after 21 days. Protect from heat. Store in the original container to protect from light. Keep all drugs in a safe place. Keep all drugs out of the reach of children and pets. Throw away unused or drugs. Do not flush down a toilet or pour down a drain unless you are told to do so. Check with your pharmacist if you have questions about the best way to throw out drugs. There may be drug take-back programs in your area. General drug facts If your symptoms or health problems do not get better or if they become worse, call your doctor. Do not share your drugs with others and do not take anyone else's drugs. Some drugs may have another patient information leaflet. If you have any questions about this drug, please talk with your doctor, nurse, pharmacist, or other health care provider. If you think there has been an overdose, call your poison control center or get medical care right away. Be ready to tell or show what was taken, how much, and when it happened. Last Reviewed [id number] Consumer Information Use and Disclaimer This generalized information is a limited summary of diagnosis, treatment, and/or medication information. It is not meant to be comprehensive and should be used as a tool to help the user understand and/or assess potential diagnostic and treatment options. It does NOT include all information about conditions, treatments, medications, side effects, or risks that may apply to a specific patient. It is not intended to be medical advice or a substitute for the medical advice, diagnosis, or treatment of a health care provider based on the health care provider's examination and assessment of a patient's specific and unique circumstances. Patients must speak with a health care provider for complete information about their health, medical questions, and treatment options, including any risks or benefits regarding use of medications. This information does not endorse any treatments or medications as safe, effective, or approved for treating a specific patient. [employer] and its affiliates disclaim any warranty or liability relating to this information or the use thereof. The use of this information is governed by the Terms of Use, available at https://www.woltersOptiniuwer.com/en /know/hygqrblc-oftsuumukrzyh-cbs ms. documented in this encounter [facility] 08-27-2023 History of Presen t illness Narrative Obesity Medicine Followup Note 08/27/2023 Patient HPI: is 47 year old Female who presents with diagnosis of class III severe obesity with PMH inflammatory breast cancer on the right, and Type 2 diabetes mellitus for follow-up evaluation of her obesity and related complications. In our previous visits we have outlined an individualized lifestyle intervention including a personalized nutrition recommendations and physical activity optimization. Tameka Allan is here today for follow up evaluation for nonsurgical metabolic weight loss management. her last office visit was3 month(s) ago with [facility] registered nurse. Weight loss since last visit: Today's weight: 234.4 lbs Last weight:234.4 lbs BMI: 39.07 Today's concerns: Unable to obtain Ozempic 2 mg dose Current Obesity Medications: Ozempic 1 mg subcutaneous weekly injection Metformin 500 mg 1 tablet daily per PCP -- reports fair suppression of appetite and good increase in satiety -- reports no side effects from the above medications. Exercise Freq-walk -3 days, 1 mile; average steps 4400; elliptical at home 5- 10 min; Barriers- no Work-related activity: Sedentary/active Diet Healthy food choices Meals - 3 B - 7-8 am - protein shake Lunch - 11:30- black echeverria burger, bun, lettuce tomato, or salad, occasional fries D - 6-7 pm - tortilla wraps and cheese or peanut and butter jelly Water: - 60-80 ounces- Soda: no Craft beer - on occasion Coffee 10 ounces in am black Structure meals ?Sleep Duration (<6hr)-6-8 hours Quality - not using CPAP Stress Degree-some Cause- coping PAST MEDICAL HISTORY Diagnosis Date Atypical mole Benign colon polyp BRCA negative 2014 1 & 2 Diabetes mellitus (HCC) Diabetes mellitus (HCC) Inflammatory breast cancer right breast, stage 3C- in lymphnodes- triple negative Right tibial fracture Snoring FUNCTIONAL STATUS: Walk indoors, such as around the house (1.75 METs) Do light work around the house, such as dusting or washing dishes (2.70 METs) Take care of self, that is eating, dressing, bathing, using the toilet (2.75 METs) Walk a block or two on level ground (2.75 METs) Do moderate work around the house such as vacuuming, sweeping floors, or carrying in groceries (3.50 METs) Climb a flight of stairs or walk up a hill (5.50 METs) Review of Systems: Review of Systems Constitutional: Negative. HENT: Negative. Eyes: Negative. Respiratory: Negative. Cardiovascular: Negative. Gastrointestinal: Positive for constipation. No hx of pancreatitis Endocrine: No hx of thyroid medullary cancer or men syndrome No hypothyroidism Genitourinary: No renal stones Musculoskeletal: Negative. Skin: Negative. Allergic/Immunologic: Negative. Neurological: Negative. Hematological: Negative. Psychiatric/Behavioral: Negative. PAST SURGICAL HISTORY Procedure Laterality Date BREAST BIOPSY 07/28/2015 COLONOSCOPY FLX DX W/COLLJ SPEC WHEN PFRMD 11/19/2013 Colonoscopy COLONOSCOPY FLX DX W/COLLJ SPEC WHEN PFRMD N/A 11/22/2016 COLONOSCOPY FLX DX W/COLLJ SPEC WHEN PFRMD 12/13/2019 Colonoscopy 5 year interval EXTRACTION, ERUPTED TOOTH OR EXPOSED ROOT (ELEVATION AND/OR FORCEPS REMOVAL) 1998 wisdom teeth INSERT INTRAUTERINE DEVICE 07/05/2015, 06/22/2020 LAPAROSCOPIC CHOLECYSTECTOMY 08/30/2022 MAST MODF RAD W/AX LYMPH NOD W/WO PECT/ABELARDO MIN Right 02/05/2016 SALPINGECTOMY COMPLETE/PARTIAL UNI/BI SPX 06/22/2020 bilateral salpingectomy, sterilization, IUD insertion Social History Tobacco Use Smoking status: Former Packs/day: 0.25 Years: 5.00 Additional pack years: 0.00 Total pack years: 1.25 Types: Cigarettes Start date: 1995 Quit date: 02/20/2007 Years since quittin.5 Smokeless tobacco: Never Vaping Use Vaping Use: Never used Substance Use Topics Alcohol use: Yes Alcohol/week: 2.0 standard drinks of alcohol Types: 1 Cans of beer, 1 Glasses of wine per week Comment: occassional, social Drug use: No PE BP 106/72 Pulse 65 Ht 165.1 cm (5' 5) Wt 106.5 kg (234 lb 12.8 oz) LMP 07/05/2015 (Exact Date) BMI 39.07 kg/m Physical Exam Vitals reviewed. Constitutional: Appearance: She is obese. HENT: Mouth/Throat: Mouth: Mucous membranes are moist. Cardiovascular: Rate and Rhythm: Normal rate and regular rhythm. Pulses: Normal pulses. Heart sounds: Normal heart sounds. Pulmonary: Effort: Pulmonary effort is normal. Breath sounds: Normal breath sounds. Abdominal: General: Bowel sounds are normal. Palpations: Abdomen is soft. Musculoskeletal: General: Normal range of motion. Cervical back: Normal range of motion. Skin: General: Skin is warm and dry. Capillary Refill: Capillary refill takes less than 2 seconds. Neurological: General: No focal deficit present. Mental Status: She is alert and oriented to person, place, and time. Psychiatric: Mood and Affect: Mood normal. Behavior: Behavior normal. Thought Content: Thought content normal. Judgment: Judgment normal. Results No visits with results within 3 Month(s) from this visit. Latest known visit with results is: Appointment on 02/10/2023 Component Date Value Ref Range Status Hemoglobin A1C 02/10/2023 5.0 4.3 - 5.6 % Final Estimated Average Glucose 02/10/2023 97 mg/dL Final Vitamin D 25 Hydroxy 02/10/2023 55.0 31.0 - 80.0 ng/mL Final Cholesterol, Total 02/10/2023 187 <200 mg/dL Final Triglyceride 02/10/2023 125 <150 mg/dL Final HDL Cholesterol 02/10/2023 39 (L) >39 mg/dL Final Non HDL Cholesterol 02/10/2023 148 (H) <130 mg/dL Final Fasting Time 02/10/2023 12 hrs Final VLDL Cholesterol 02/10/2023 25 <30 mg/dL Final TC:HDL Ratio 02/10/2023 4.79 <5.10 Final LDL Cholesterol 02/10/2023 123 (H) <100 mg/dL Final LDL:HDL Ratio 02/10/2023 3.15 (H) <2.54 Final Protein, Total 02/10/2023 7.4 6.3 - 8.0 g/dL Final Albumin 02/10/2023 4.2 3.9 - 4.9 g/dL Final Calcium, Total 02/10/2023 8.8 8.5 - 10.2 mg/dL Final Bilirubin, Total 02/10/2023 0.4 0.2 - 1.3 mg/dL Final Alkaline Phosphatase 02/10/2023 46 34 - 123 U/L Final AST 02/10/2023 14 13 - 35 U/L Final ALT 02/10/2023 21 7 - 38 U/L Final Glucose 02/10/2023 97 74 - 99 mg/dL Final BUN 02/10/2023 11 7 - 21 mg/dL Final Creatinine 02/10/2023 0.80 0.58 - 0.96 mg/dL Final Sodium 02/10/2023 138 136 - 144 mmol/L Final Potassium 02/10/2023 4.0 3.7 - 5.1 mmol/L Final Chloride 02/10/2023 104 97 - 105 mmol/L Final CO2 02/10/2023 24 22 - 30 mmol/L Final Anion Gap 02/10/2023 10 9 - 18 mmol/L Final Estimated Glomerular Filtration Ra* 02/10/2023 93 >=60 mL/min/1.73m Final WBC 02/10/2023 11.03 (H) 3.70 - 11.00 k/uL Final RBC 02/10/2023 4.77 3.90 - 5.20 m/uL Final Hemoglobin 02/10/2023 15.0 11.5 - 15.5 g/dL Final Hematocrit 02/10/2023 43.0 36.0 - 46.0 % Final MCV 02/10/2023 90.1 80.0 - 100.0 fL Final MCH 02/10/2023 31.4 26.0 - 34.0 pg Final MCHC 02/10/2023 34.9 30.5 - 36.0 g/dL Final RDW-CV 02/10/2023 12.6 11.5 - 15.0 % Final Platelet Count 02/10/2023 240 150 - 400 k/uL Final MPV 02/10/2023 9.8 9.0 - 12.7 fL Final Neutrophils % 02/10/2023 65.9 % Final Abs Neut 02/10/2023 7.26 1.45 - 7.50 k/uL Final Lymphocytes % 02/10/2023 23.4 % Final Abs Lymph 02/10/2023 2.58 1.00 - 4.00 k/uL Final Monocytes % 02/10/2023 7.5 % Final Abs Richardson 02/10/2023 0.83 <0.87 k/uL Final Eosinophils % 02/10/2023 2.1 % Final Abs Eosin 02/10/2023 0.23 <0.46 k/uL Final Basophils % 02/10/2023 0.5 % Final Abs Baso 02/10/2023 0.06 <0.11 k/uL Final Immature Granulocytes % 02/10/2023 0.6 % Final Abs Immature Gran 02/10/2023 0.07 <0.10 k/uL Final NRBC 02/10/2023 0.0 /100 WBC Final Absolute nRBC 02/10/2023 <0.01 <0.01 k/uL Final Diff Type 02/10/2023 Auto Final Impression: 47 year old female with a diagnosis of class III severe obesity here for nonsurgical metabolic weight loss management. Body mass index is 39.07 kg/m . Assessment/Plan: ASSESSMENT/PLAN: 1. Obesity, Class III, BMI >= 40 - ICD9: 278.01, ICD10: E66.01 (primary diagnosis) No change to weight - Behavioral and pharmacological intervention Encouraged patient to continue with low carb low sugar foods and more consistent meals and mealtimes. Encourage patient to increase her protein at least 60 to 90 g daily to stay lindquist longer and to increase her water 60 to 80 ounces daily. Encourage patient to increase her fruits and vegetables and also to avoid eating after 7:30 PM. Reviewed with patient activity and recommended activities to increase her cardio and metabolism. Discussed adding light arm weights, more walking, a goal of steps 7315-1305. I have also reviewed the possibility using weight loss medications in effort to reduce patient's appetite. I reviewed the different therapeutic options available including phentermine, Qsymia, Contrave, Saxenda, topiramate, metformin, bupropion and Effexor which all been associated weight loss. At this time we agreed that the patient's best option at this point to be: Patient unable to get Ozempic at this time and her current dose. Begin Mounjaro 2.5 mg subcutaneous weekly injection Education included discussing thyroid C-cell tumor risk including Medullary Thyroid Carcinoma (MTC).Though studies have shown increased risk of medullary cell cancers only in rats. Patient denies family history of MTC and Multiple Endocrine Neoplasia Syndrome type 2 (MEN 2). I discussed that this medication is associated with acute pancreatitis, including fatal and non-fatal hemorrhagic or necrotizing pancreatitis. Pt does not have a hx of pancreatitis. Educated patient to monitor for signs such as persistent severe abdominal pain, sometimes radiating to the back, with or without vomiting. If this occurs, stop medication immediately and go to ER. The most common adverse reactions include nausea, vomiting, diarrhea, constipation and injection site erythema. These may dissipate over time. Helpful tip GLP-1 RA increases beta cell proliferation. discussed with patient setting 3 small goals that are SMART (Specific, Measurable, Achievable, Relevant, and Time-Bound), to be evaluated at her next visit. I reviewed with the patient the pros and cons of taking these medications. In addition discussed with patient to have at least 60 g of protein daily and at least 60-80 ounces of water daily. We also discussed monitoring blood pressure and reporting anything over 140/90 or greater. Patient verbalized understanding all questions and concerns addressed. 2. Type 2 diabetes mellitus with other specified complication, without long-term current use of insulin (HCC) - ICD9: 250.80, ICD10: E11.69 - Improving control - Counseled on healthy diet and regular exercise - Discussed need for and benefit of weight loss. BMI 39.07 kg/(m^2) - Discussed diabetic education issues of medication-specific side effects and monitoring - TIRZEPATIDE 2.5 MG/0.5 ML SUBCUTANEOUS PEN INJECTOR 3. HALIMA (obstructive sleep apnea) - ICD9: 327.23, ICD10: G47.33 Encourage patient to follow-up with sleep medicine 4. Dietary counseling and surveillance - ICD9: V65.3, ICD10: Z71.3 Reviewed principles of energy metabolism caloric intake and expenditure and rationale for treatment program. Also reinforced need for reduced calorie low-fat nutrition and increase physical activity. 5. BMI 40.0-44.9, adult (HCC) - ICD9: V85.41, ICD10: Z68.41 No change to weight today's BMI 39.07 - Behavioral and pharmacological intervention Patient is doing well otherwise, continues lifestyle modification. Patient remains motivated to lose weight. This note was partially generated using Smart Lunches voice recognition system, and there may be some incorrect words, spellings, and punctuation that were not noted in checking the note before saving. -- We discussed several strategies to track food intake and increase mindfulness around eating. We will start with a self-directed attempt in combination with the above recommendations. -- Encouraged consistency of exercise, with an overall goal of 200 minutes per week. This dose of exercise has been effective in weight loss and maintenance. We discussed that cardiovascular exercise is most beneficial for weight loss initially, but it is important to combine resistance training as there is a loss of lean muscle mass with weight loss. Lenore Morelos APRN [facility] Obesity Medicine I spent a total of 35 minutes on the date of the service which included preparing to see the patient, [id number] patient care, completing clinical documentation, obtaining and/or reviewing separately obtained history, performing a medically appropriate examination, counseling and educating the patient/family/caregiver, ordering medications, tests, or procedures, communicating with other HCPs (not separately reported), independently interpreting results (not separately reported), communicating results to the patient/family/caregiver, and care coordination (not separately reported) 5A's- Assess: I assessed behavioral health risk/factors affecting --- Asked about/assess behavioral health risk(s) and factors affecting choice of behavior change goals --- somewhat sedentry lifestyle ---?snacking ---Lack of exercise Advise: clear, specific, personalized behavior change advice. ---I gave very clear, specific, and personalized behavior change adviced, including information about personal health harms and benefits. Agree: Patient agrees with selected appropriate treatment goals and methods to change behavior Assist: Provided IBT w self-help, handouts, teaching skills and support Using behavior change techniques with self-help and Counseling in achieving Goals. Also discussed supplementing with adjunctive medical treatments when appropriate. Arrange: follow up scheduled, handouts given to patient. documented in this encounter [facility] 07-28-2023 Miscellaneous Notes Patient called requesting the following refill. She is going on vacation and will be out when on vacation so would like a refill before vacation so she has this while on vacation. Requested Prescriptions Pending Prescriptions Disp Refills semaglutide (OZEMPIC) 2 mg/dose (8 mg/3 mL) pen injector 3 mL 1 Sig: Inject 2 mg subcutaneously one time a week. Next Appointment: 08/27/2023 Patient Phone numbers: [phone] (home) [phone] (work) Request is for script(s) to be escript to pharmacy. Nathaly Tidwell MA documented in this encounter [facility] 06-09-2023 Instructions Lenore Morelos APRN.CNP - 06/09/2023 3:50 PM EDT Images from the original note were not included. Dear Ms. Allan: It was a pleasure to care for your today and continue your weight loss journey; here are today's highlights we discussed: Nutrition: continue consistent meals and mealtimes. Avoid processed foods continue low-carb low sugar nutrition Protein 60 g daily Water 60 to 80 ounces daily Intermittent fasting-you want 3 hours between meals and you want to avoid eating after 7:30 PM Examples of foods: Protein replacement shakes there are various brands including Premier, Aldi, StudioSnaps life, Each she has approximately 30 g of protein, 1 to 2 g of sugar and 4 to 7 g of carbs Other examples for breakfast include 2 eggs any style 2 strips of ashton or 2 sausage links, the meat can be either turkey based or chicken. Lunch consider a salad with a tuna packet and or hard-boiled eggs You can also do turkey with a low-carb wrap Dinner make sure you are having protein and vegetables If fresh fruits and vegetables are not available a frozen is a great choice. Avoid canned because many of the nutrients are washed out and it contains sodium.- Consider meal prepping you want to be able to grab and go Avoid soda pop it does not hydrate the body and decrease caffeine. Activity: Increase your activity, increase cardio walking 10 to 15 minutes with a goal of 30 minutes 3 times a week Consider adding some light arm weights while you are watching your favorite show Water aerobics is also greatly decreases gravity on the joints Medications: Increase Ozempic to 2 mg subcutaneous weekly injection Continue metformin 750 mg daily per pcp Semaglutide (Ozempic) Link to savings card for $25/month (not eligible if Medicare or Medicaid, commercial insurances only) https://[email or web address]/ozempic /savings-card.html Link to medication guide: https://www.Sumbola.com/ozempic. pdf Ozempic website: https://www.Hithru.IndustryTrader.com/ How to use the pen: https://www.Tokutek.com/diab etes/patient-support/product-edu cation/library/xieuzyy-zaa-mszvp rabpffu-xvr-aff.html Link to extra needle tips if needed: https://www.121nexus/dp/B01IBJ 8CII?ref_=cm_sw_r_cp_ud_dp_YRMC8 [email or web address] What Is Ozempic? Ozempic is a brand-name prescription drug that contains semaglutide. It belongs to the drug class glucagon-like peptide-1 (GLP-1) agonists. Ozempic is available as a liquid solution self-injectable medication. It is a pre-filled, disposable, single-use injection pen. Can Ozempic Be Used for Weight Loss? While Ozempic is not a weight loss drug, Ozempic s ingredient semaglutide has recently been approved for weight loss by the FDA. This new branding of semaglutide has been named Wegovy. The medication will be delivered as a once-weekly shot, in combination with diet and exercise. How Does Ozempic for Weight Loss Work? Ozempic is in a drug class called GLP-1 agonists that are used to control blood sugar, and can be taken to assist in weight loss. This drug works by - Slowing down how fast your stomach empties food - Blocking hormones that cause the liver to release sugar - Together, these combined actions cause the feeling of hunger to decrease, which leads to eating less, and finally, weight loss. How Long Does It Take for Ozempic to Work for Weight Loss? Results vary from person to person with Ozempic. Some people may have a quick initial weight drop; for others, it may take more time. Ozempic has been shown to help people lose weight in a safe, long-term, and healthy way. A [facility] doctor will help you with dosages of Ozempic for weight loss and might recommend slowly increasing dosage over time to maximize weight loss. The speed at which you lose weight is largely influenced by the amount of lifestyle changes you are able to make: there is no magic weight loss drug on the market. It s important to remember that weight loss takes time, and you ll have the best results if you use Ozempic in combination with exercise and a healthy diet. Ozempic for Weight Loss Dosing Ozempic dosage for weight loss will start at the lowest dosage and potentially gradually increase, per your doctor s recommendation. It is paramount to use Ozempic precisely as prescribed by your doctor. Your doctor will instruct you on how to use the self-injected pen, and make sure you are fully prepared before you start taking this medication. Ozempic for Weight Loss Prescription Ozempic is generally available through prescription for adults with type 2 diabetes (for which it is FDA-approved), so you will need to talk to a doctor. If you do not have type 2 diabetes though, your doctor may recommend what is known as an off label prescription if your blood glucose is abnormal, or if you have prediabetes or metabolic syndrome, to help with weight loss. This is because the weight-loss benefits of Ozempic have been recognized, and while Ozempic is not specifically for weight loss, you may lose some weight while taking it https://DuckDuckGo/ozempic-we ight-loss/ Introduction Ozempic (semaglutide) may be a treatment option for you.Ozempic is used to: help lower blood sugar levels in adults with type 2 diabetes (when used with diet and exercise) help reduce the risk for certain cardiovascular problems (related to the heart or blood vessels) in adults with type 2 diabetes and cardiovascular disease Ozempic is given by subcutaneous injection (an injection under your skin). You ll use it once a week as part of your diabetes treatment plan to help meet your daily and long-term blood sugar goals. For more details on Ozempic, see this in-depth article. Ozempic may cause mild or serious side effects in some people. Keep reading to learn more. Note: Ozempic isn t used to treat type 1 diabetes or diabetic ketoacidosis, a serious diabetes complication. Talk with your doctor to learn more. What are the more common side effects of Ozempic? Like all drugs, Ozempic may cause side effects in some people. The more commonly reported side effects of Ozempic include: abdominal (belly) pain constipation diarrhea nausea or vomiting Ozempic may cause other side effects, too. Talk with your doctor about your specific risk for side effects from this drug. Learn more about Ozempic s side effects in the next sections. What are the mild side effects of Ozempic? Ozempic can cause mild side effects in some people. These may include: change in the way things taste abdominal (belly) pain burping* constipation or diarrhea dizziness headache flatulence (gas)* fatigue (lack of energy) indigestion (upset stomach) or acid reflux injection-site reactions, such as skin redness or discomfort nausea or vomiting minor increase in heart rate * For more information on this side effect, see the Side effects explained section below. In most cases, these side effects should be temporary. Some may be easily managed, too. But if you have any symptoms that are ongoing or that bother you, talk with your doctor or pharmacist. And don t stop using Ozempic unless your doctor recommends it. Ozempic may cause other mild side effects, too. To learn more, see the Ozempic Medication Guide. Note: After the Food and Drug Administration (FDA) approves a drug, it tracks and reviews side effects of the medication. If you d like to notify the FDA about a side effect you ve had with Ozempic, visit [facility]. What are the serious side effects of Ozempic? In rare cases, Ozempic may cause serious side effects. Before starting treatment, talk with your doctor about your risk for serious side effects from this drug. Serious side effects of Ozempic can include: diabetic retinopathy (damaged blood vessels in the eye) gallstones kidney problems pancreatitis* (swelling of the pancreas) increased risk of thyroid cancer* allergic reaction* hypoglycemia* (low blood sugar) * To learn more about this side effect, see the Side effects explained section below. Ozempic has a boxed warning for an increased risk of thyroid cancer. This is the most serious warning from the Food and Drug Administration (FDA). To learn more, see the Side effects explained section below. FAQs about Ozempic s side effects Get answers to some frequently asked questions about Ozempic s side effects. Can Ozempic cause weight loss? Yes, Ozempic can cause weight loss in some people. Although the drug isn t approved for weight loss, some people using Ozempic in studies lost weight. In these studies, Ozempic was either used alone or with other treatments for type 2 diabetes. Another diabetes drug, Saxenda (liraglutide), is approved for weight loss in people with type 2 diabetes. Saxenda is in the same drug class as Ozempic. (A drug class is a group of medications that work in a similar way.) Saxenda can t be used with Ozempic. If you re interested in learning more about Saxenda or other weight-management treatments, talk with your doctor. Are there foods to avoid while taking Ozempic? No, you don t have to avoid any specific foods during your Ozempic treatment. Also, the drug can be taken with or without food. However, Ozempic is used to improve blood sugar levels in adults with type 2 diabetes, and it s used along with diet and exercise. To reach your blood sugar goals while using Ozempic, you should follow the nutrition guidelines that your doctor recommends. If you have changes to your diet, activity level, or weight, your diabetes treatment plan may need to be adjusted. Talk with your doctor if you have any of these changes. How long do Ozempic side effects last? In general, mild side effects of Ozempic should be temporary or manageable while you re using the drug. However, after stopping Ozempic, it could take your body about 5 weeks after your last dose to fully clear the drug from your system. So you could have side effects during this period. And you could experience some serious side effects, such as worsening diabetic retinopathy, even after Ozempic has been fully cleared from your system. If you have questions or concerns about how long side effects from Ozempic could last, talk with your doctor. Does Ozempic cause hair loss? No, Ozempic shouldn t cause hair loss. Hair loss wasn t seen in studies of Ozempic. However, hair loss has been linked with both type 1 and type 2 diabetes. Diabetes-related hair loss isn t fully understood, but it may be caused by various factors. These may include: damaged hair follicles from long periods of high blood sugar or poor circulation stress from managing a chronic (long-term) condition having hypothyroidism (low thyroid hormone levels) along with diabetes Also, many people with diabetes take medications to treat other chronic conditions such as cardiovascular disease (CVD). In rare cases, certain drugs used to treat CVD, such as statins or angiotensin-converting enzyme (DIOMEDES) inhibitors, may cause hair loss. If you re experiencing hair loss, see your doctor right away. If it s related to poor blood sugar control, they may change your diabetes treatment plan. If it s not, your doctor will check for other causes and discuss treatment options with you. Side effects explained Learn more about some of the side effects Ozempic may cause. Thyroid cancer risk Ozempic has a boxed warning for the risk of thyroid cancer. Ozempic has caused thyroid cancer in animals. It s unclear if this drug also increases thyroid cancer risk in humans. However, to lower the possible risk of thyroid cancer, don t use Ozempic if: you have a rare genetic condition called multiple endocrine neoplasia type 2 you or a family member has had medullary thyroid cancer What might help While using Ozempic, tell your doctor right away if you have symptoms of thyroid cancer, such as: a lump or pain in your neck trouble swallowing shortness of breath or wheezing hoarse voice that doesn t get better If you re diagnosed with thyroid cancer, your doctor will stop your Ozempic and adjust your diabetes treatment plan. Gas and burping Flatulence (gas) and burping can occur with Ozempic, but they aren t the most common digestive system side effects. Some more common digestive system side effects include constipation, diarrhea, nausea, and vomiting. Burping is also a symptom of acid reflux or indigestion (upset stomach). These are both digestive system side effects that can occur with Ozempic, too. What might help In most cases, gas and burping are considered mild side effects. But if they bother you or don t go away during your Ozempic treatment, talk with your doctor. They may suggest diet changes or an pnux-gev-oumlrqz (OTC) medication, such as Gas-X (simethicone), to help relieve gas and burping. If your burping is related to acid reflux or indigestion, your doctor may suggest an OTC antacid, such as Pepcid (famotidine) or Tums (calcium carbonate tablets). See your doctor right away if you have gas or burping along with vomiting or severe pain in your back or abdomen (belly). These could be symptoms of pancreatitis (swelling of the pancreas), which is a serious side effect of Ozempic. (See Pancreatitis below to learn more.) Dizziness Some people may experience dizziness while using Ozempic. However, this isn t a common symptom of Ozempic. Dizziness could also be a symptom of hypoglycemia (low blood sugar). Hypoglycemia is a serious side effect of Ozempic that can cause severe health problems if it s not treated. What might help Talk with your doctor right away if you feel dizzy while using Ozempic. Before starting Ozempic, ask your doctor how often you should check your blood sugar. Also, ask your doctor or pharmacist to explain the symptoms of low blood sugar and how to manage these episodes. Your doctor or pharmacist may suggest that you carry OTC glucose products so you re ready to treat low blood sugar quickly before it becomes severe. (See Hypoglycemia below to learn more.) Pancreatitis In rare cases, Ozempic may cause pancreatitis (swelling of the pancreas). This can be either acute (short-term) pancreatitis or chronic pancreatitis. Your pancreas is a gland that releases enzymes (proteins) and substances, such as insulin, needed to digest foods and use energy. When the pancreas becomes inflamed, the swelling can damage your pancreas and cause symptoms. Acute pancreatitis usually lasts for a short period of time and goes away after treatment. Chronic pancreatitis may develop with continued damage to the pancreas over time. What might help Before starting Ozempic, tell your doctor if you ve had pancreatitis or other pancreatic problems before. It may be unsafe for you to use Ozempic. If so, your doctor will prescribe another diabetes treatment. While using Ozempic, watch for pancreatitis symptoms, such as: abdomen (belly) pain that may radiate to your back nausea or vomiting bloating fever See your doctor right away if you experience any of these symptoms. If your doctor confirms you have pancreatitis, they ll stop your Ozempic and manage your condition. Hypoglycemia Ozempic may cause hypoglycemia (low blood sugar). This side effect is more common if you use Ozempic along with insulin or other diabetes drugs. Making certain lifestyle changes, such as fasting or suddenly changing your diet, can cause low blood sugar, too. If your blood sugar gets too low, it can cause symptoms or serious health problems. Examples of these problems include dizziness, blurred vision, or seizures. What might help Before starting Ozempic, tell your doctor if you take insulin or any other medications. They may adjust your insulin regimen or your dosage of other diabetes drugs to help prevent low blood sugar with Ozempic. Follow your prescribed diabetes treatment plan, including your meal plan, to keep your blood sugar in a healthy range. If you change your diet or physical activity level, tell your doctor. And tell them if you gain or lose a lot of weight. These factors can affect your blood sugar and may make you more likely to have episodes of hypoglycemia. Symptoms of hypoglycemia can vary, but common symptoms to watch for include: dizziness shakiness chills or sweating confusion or clumsiness paleness blurry vision intense hunger You should keep foods on hand that can raise your blood sugar quickly if you have an episode of hypoglycemia. Or you can try OTC glucose gels or chewable glucose tablets. If you have severe hypoglycemia, call 911 or your local emergency phone number, or have someone drive you to the emergency room. (You shouldn t drive yourself during an episode of severe hypoglycemia.) Allergic reaction Like most drugs, Ozempic can cause an allergic reaction in some people. Symptoms can be mild, such as: rash itchiness flushing (warmth, swelling, or redness in your skin) But in rare cases, Ozempic may cause a serious allergic reaction with severe symptoms, such as: swelling under your skin, typically in your eyelids, lips, hands, or feet swelling of your mouth, tongue, or throat, which can make it hard to breathe What might help If you have mild symptoms of an allergic reaction, such as a mild rash, call your doctor right away. They may suggest an OTC treatment to manage your symptoms. Examples of these treatments include an antihistamine such as Benadryl (diphenhydramine) or a hydrocortisone cream. If your doctor confirms you had a mild allergic reaction to Ozempic, they ll decide if you should continue using the drug. If you have symptoms of a severe allergic reaction, such as swelling or trouble breathing, call 911 or your local emergency number right away. These symptoms could be life threatening and require immediate medical care. If your doctor confirms you had a serious allergic reaction to Ozempic, they ll have you stop using the drug and switch you to a different treatment. Keeping track of side effects During your Ozempic treatment, consider keeping notes on any side effects you re having, especially episodes of hypoglycemia (low blood sugar). Then, you can share this information with your doctor. This is especially helpful to do when you first start taking new drugs or using a combination of treatments. Your side effect notes can include things like: what dose of drug you were taking when you had the side effect how soon after starting that dose you had the side effect what your symptoms were from the side effect how it affected your daily activities what other medications you were also taking any other information you feel is important Keeping notes and sharing them with your doctor will help your doctor learn more about how Ozempic affects you. And your doctor can use this information to adjust your treatment plan if needed Warnings for Ozempic Ozempic has multiple warnings that may affect whether or not you can safely use this drug. Boxed warning: Thyroid cancer risk Ozempic has a boxed warning for the risk of thyroid cancer. A boxed warning is the most serious warning from the Food and Drug Administration (FDA). Ozempic has caused thyroid cancer in animals. It s unclear if the drug also increases thyroid cancer risk in humans. To lower the potential risk of thyroid cancer, don t use Ozempic if: you have a rare genetic condition called multiple endocrine neoplasia type 2 you or a family member has had medullary thyroid cancer For more details, see the Side effects explained section above. Other warnings Ozempic may not be right for you if you have certain medical conditions or other factors that affect your health. Talk with your doctor about your health history before you take Ozempic. Factors to consider include those in the list below. Kidney problems. Before starting Ozempic, tell your doctor if you ve had any kidney problems. Drugs such as Ozempic have caused new or worsening kidney disease, including kidney failure, in some people. If you become dehydrated from other side effects of Ozempic, such as vomiting or diarrhea, this could also cause kidney problems. Your doctor may monitor your kidney health closely during your Ozempic treatment. If you develop new or worsening kidney problems, they may stop your treatment. Allergic reaction to GLP-1 agonists. If you ve had an allergic reaction to Ozempic or any of its ingredients, you shouldn t take Ozempic. Also tell your doctor if you ve had an allergic reaction to another GLP-1 agonist (the drug class Ozempic belongs to). If you have, you could have an allergic reaction to Ozempic, which could be severe. Your doctor can prescribe a safer treatment option for you. Diabetic retinopathy. If you have diabetic retinopathy, using Ozempic may make it worse. Tell your doctor if you have this condition before starting Ozempic. While using this drug, keep all your eye appointments and tell your doctor right away if you have any vision changes. Pancreatitis. Ozempic may cause pancreatitis. It s unclear if Ozempic is safe to use if you ve had pancreatitis or other pancreatic problems, so tell your doctor if you ve had these conditions before. They may choose another treatment option for you. Insulin or other diabetes drug use. Using Ozempic with insulin or other diabetes drugs may raise your risk for severe hypoglycemia. If untreated, this condition can cause serious health problems. Before starting Ozempic, tell your doctor about all medications you take. They may adjust your insulin regimen or your dosage of other diabetes drugs to help prevent hypoglycemia with Ozempic. But don t make changes to your diabetes treatment plan unless your doctor recommends it. Alcohol use and Ozempic Ozempic isn t known to interact with alcohol. However, Ozempic lowers your blood sugar. Alcohol may make your blood sugar drop, too. So, drinking alcohol during your Ozempic treatment may cause severe hypoglycemia (low blood sugar). Also, chronic (long-term) alcohol use is a common cause of pancreatitis (swelling of the pancreas). Using Ozempic may raise your risk for pancreatitis, too. To help prevent these health problems, avoid excessive alcohol use during your Ozempic treatment. If you drink alcohol, talk with your doctor about how much may be safe for you to drink with your condition and treatment plan. and while taking Ozempic It s unknown if Ozempic is safe to use during or while . If you re planning to become , you ll need to stop Ozempic at least 2 months before trying to conceive. This waiting period ensures your body has fully cleared the drug from your system. If you become while using Ozempic, talk with your doctor right away. If you re or planning to breastfeed, talk with your doctor about the risks and benefits of using Ozempic. What to ask your doctor If you have type 2 diabetes, Ozempic may help improve your blood sugar levels. If you also have cardiovascular disease (CVD), it can lower your risk for heart attack, stroke, or from CVD. Ozempic can cause side effects in some people. In general, Ozempic s common side effects are mild. But in rare cases, the drug could cause serious side effects. If you have questions about possible side effects with Ozempic, talk with your doctor or pharmacist. They can provide answers to help you feel confident about your diabetes treatment plan. Examples of questions you may want to ask include: What s my risk for serious side effects? Is there anything I can do to prevent diabetic retinopathy while using Ozempic? If I have kidney disease and have diarrhea with Ozempic, is it safe to drink electrolyte replacement solutions such as Pedialyte to stay hydrated? How should I manage injection-site reactions with Ozempic? I have gallstones that I manage through my diet. Should I avoid using Ozempic? For tips on managing your condition, eating wisely, and more, subscribe to our online newsletter for type 2 diabetes. How To Swap Sweet Treats This is the most important week yet. What the heck do you do when you want something sweet!??!! DO NOT: Focus on giving up your favorite treats. DO: Find new favorites without all the added sugar. The goal is not to just white knuckle it & force yourself to not eat sweets, but rather to find new things to ADD & enjoy. 3 SWEET TOOTH HELPERS: 1) Natural Sugars Foods w/ natural sugar can help a sweet tooth while adding vitamins & minerals. examples: fresh fruit, unsweetened frozen fruit, plain 2% yogurt 2) Fats Fat is satisfying so it can give a quick pleasure fix without blood sugar spikes. examples: nut butter, coconut butter, nuts, seeds 3) Foods w/ Sweet Flavor Some foods have a sweet flavor on your taste buds, but don't actually have sugar. examples: cinnamon, cocoa powder/nibs, vanilla, unsweetened coconut flakes GET READY TO SUGAR SWAP! Breaking up with sugar doesn't mean the fun is over! PRODUCT SWAPS Restock your fav condiments & packaged goods to the no added sugar versions such as salad dressing, ketchup, BBQ sauce, hot sauce, pasta sauce, yogurt, oatmeal, plant milk & nut butter. PS: This doesn't mean artificially sweetened products, just ones with no added sugar. Check those labels. QUICKIE SWAPS Here are some of my favorite sugar swaps for when a craving hits: flavored creamer & sugar in coffee SWAP: coconut milk & cinnamon in coffee rosa flavored yogurt SWAP: plain 2% yogurt w/ mashed berries chocolate chip cookie SWAP: stevia-sweetened dark chocolate apple cinnamon flavored oatmeal SWAP: oats w/ diced apple, cinnamon & almonds store bought protein bar SWAP: hard boiled egg ice cream SWAP: frozen banana slices w/ cocoa powder soda pop SWAP: sparkling water w/ shot of 100% fruit juice granola SWAP: DIY trail mix (chopped nuts, unsweetened coconut flakes, cocoa nibs) fruity candy SWAP: unsweetened dried linh kettle corn SWAP: popcorn drizzled w/ nut butter & cinnamon sundae SWAP: fruit topped w/ real whipped cream (shake whipping cream & vanilla in cold jessica jar) peanut butter & jelly SWAP: strawberries dipped in nut butter mint elder SWAP: plain 2% yogurt w/ peppermint stevia & cocoa nibs RECIPE SWAPS Here are some of my favorite sugar swap recipes w/ no added sugar: protein bites (recipe link) froyo bark (recipe link) chocolate chucho pudding (recipe link) chickpea cookie dough (recipe link) banana bread muffins (recipe link) 3-ingredient banana bread cookies (recipe link) pumpkin spice nice cream (recipe link) fruit sorbet (recipe link) freezer fudge (recipe link) chocolate magic shell (recipe link) FAQ Q: If I really want something sweet, can I use sweeteners? A: Yes. I recommend stevia or monk fruit since they are zero-calorie, naturally-based sweeteners. Use them only sparingly since they can keep you programmed to like foods with intense sweetness. Aim to avoid artificial sweeteners like you would find in pink (saccharin), blue (aspartame), and yellow (sucralose) packets. Q: Can I ever eat sugar again?? A: HELL YES! This isn't just about avoidance. It's about being awake. Making choices of when to enjoy sugar on your own terms. You controlling it & not the other way around. My favorite personal solution: SOCIAL sweets/treats/alcohol which is about eating in situations that bring MARIA C[employer] Lesson 3: How To Swap Sweet Treats CAROL Salguero ([email or web address]) documented in this encounter [facility] 06-09-2023 History of Presen t illness Narrative Obesity Medicine Followup Note 06/09/2023 Patient HPI: is 47 year old Female who presents with diagnosis of class III severe obesity with PMH inflammatory breast cancer on the right, and Type 2 diabetes mellitus for follow-up evaluation of her obesity and related complications. In our previous visits we have outlined an individualized lifestyle intervention including a personalized nutrition recommendations and physical activity optimization. Tameka Allan is here today for follow up evaluation for nonsurgical metabolic weight loss management. her last office visit was4 month(s) ago with advanced practice registered nurse. Weight loss since last visit: Today's weight:234.4 Last weight:239 lbs BMI: 39.01 Today's concerns: Reports on occasion loose stool then resolves after a few days Current Obesity Medications: Ozempic 1 mg subcutaneous weekly injection Metformin 750 mg tablet daily per PCP -- reports good suppression of appetite and good increase in satiety -- occasional loose stool and some nausea first few days SE Exercise Freq-decreased, traveling did some 2 mile walk in morning working on [place] Barriers-work and travel Work-related activity: Sedentary/active Diet Healthy food choices 3 meals Protein 60 grams daily Protein shakes in am 3 hours between meals Not eating after 7:30 m Water 64-80 ounces Coffee- decrease to 8 ounces Soda: no Craft beer on occasion Structure- structured meals ?Sleep Duration (<6hr) - 6-8 hours Quality- poor tolerance to sleep cpap met with specialist reports working to lose more weight hoping will help Stress Degree- improved Cause- new management 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 Right tibial fracture Snoring FUNCTIONAL STATUS: Walk indoors, such as around the house (1.75 METs) Do light work around the house, such as dusting or washing dishes (2.70 METs) Take care of self, that is eating, dressing, bathing, using the toilet (2.75 METs) Walk a block or two on level ground (2.75 METs) Do moderate work around the house such as vacuuming, sweeping floors, or carrying in groceries (3.50 METs) Climb a flight of stairs or walk up a hill (5.50 METs) Review of Systems: Review of Systems Constitutional: Negative. HENT: Negative. Eyes: No hx of glaucoma Respiratory: Negative. Cardiovascular: Negative. Gastrointestinal: Some loose stool Endocrine: No reports of thyroid medullary cancer or men syndrome Genitourinary: No reports of renal stones Musculoskeletal: Negative. Allergic/Immunologic: Negative. Neurological: Negative. Hematological: Negative. Psychiatric/Behavioral: Negative. PAST SURGICAL HISTORY Procedure Laterality Date BREAST BIOPSY 07/28/2015 COLONOSCOPY FLX DX W/COLLJ SPEC WHEN PFRMD 11/19/2013 Colonoscopy COLONOSCOPY FLX DX W/COLLJ SPEC WHEN PFRMD N/A 11/22/2016 COLONOSCOPY FLX DX W/COLLJ SPEC WHEN PFRMD 12/13/2019 Colonoscopy 5 year interval EXTRACTION, ERUPTED TOOTH OR EXPOSED ROOT (ELEVATION AND/OR FORCEPS REMOVAL) 1998 wisdom teeth INSERT INTRAUTERINE DEVICE 07/05/2015, 06/22/2020 LAPAROSCOPIC CHOLECYSTECTOMY 08/30/2022 MAST MODF RAD W/AX LYMPH NOD W/WO PECT/ABELARDO MIN Right 02/05/2016 SALPINGECTOMY COMPLETE/PARTIAL UNI/BI SPX 06/22/2020 bilateral salpingectomy, sterilization, IUD insertion Social History Tobacco Use Smoking status: Former Packs/day: 0.25 Years: 5.00 Additional pack years: 0.00 Total pack years: 1.25 Types: Cigarettes Start date: 1995 Quit date: 02/20/2007 Years since quittin.3 Smokeless tobacco: Never Vaping Use Vaping Use: Never used Substance Use Topics Alcohol use: Yes Alcohol/week: 2.0 standard drinks of alcohol Types: 1 Cans of beer, 1 Glasses of wine per week Comment: occassional, social Drug use: No PE BP 112/70 (BP Site: Left Arm, BP Position: Sitting, BP Cuff Size: Large Adult) Pulse (!) 55 Ht 165.1 cm (5' 5) Wt 106.3 kg (234 lb 6.4 oz) LMP 07/05/2015 (Exact Date) BMI 39.01 kg/m Physical Exam Vitals reviewed. Constitutional: Appearance: She is obese. HENT: Mouth/Throat: Mouth: Mucous membranes are moist. Cardiovascular: Rate and Rhythm: Normal rate and regular rhythm. Pulses: Normal pulses. Heart sounds: Normal heart sounds. Pulmonary: Effort: Pulmonary effort is normal. Breath sounds: Normal breath sounds. Abdominal: General: Bowel sounds are normal. Palpations: Abdomen is soft. Musculoskeletal: General: Normal range of motion. Cervical back: Normal range of motion. Skin: General: Skin is warm and dry. Neurological: General: No focal deficit present. Mental Status: She is alert and oriented to person, place, and time. Psychiatric: Mood and Affect: Mood normal. Behavior: Behavior normal. Thought Content: Thought content normal. Judgment: Judgment normal. Results No visits with results within 3 Month(s) from this visit. Latest known visit with results is: Appointment on 02/10/2023 Component Date Value Ref Range Status Hemoglobin A1C 02/10/2023 5.0 4.3 - 5.6 % Final Estimated Average Glucose 02/10/2023 97 mg/dL Final Vitamin D 25 Hydroxy 02/10/2023 55.0 31.0 - 80.0 ng/mL Final Cholesterol, Total 02/10/2023 187 <200 mg/dL Final Triglyceride 02/10/2023 125 <150 mg/dL Final HDL Cholesterol 02/10/2023 39 (L) >39 mg/dL Final Non HDL Cholesterol 02/10/2023 148 (H) <130 mg/dL Final Fasting Time 02/10/2023 12 hrs Final VLDL Cholesterol 02/10/2023 25 <30 mg/dL Final TC:HDL Ratio 02/10/2023 4.79 <5.10 Final LDL Cholesterol 02/10/2023 123 (H) <100 mg/dL Final LDL:HDL Ratio 02/10/2023 3.15 (H) <2.54 Final Protein, Total 02/10/2023 7.4 6.3 - 8.0 g/dL Final Albumin 02/10/2023 4.2 3.9 - 4.9 g/dL Final Calcium, Total 02/10/2023 8.8 8.5 - 10.2 mg/dL Final Bilirubin, Total 02/10/2023 0.4 0.2 - 1.3 mg/dL Final Alkaline Phosphatase 02/10/2023 46 34 - 123 U/L Final AST 02/10/2023 14 13 - 35 U/L Final ALT 02/10/2023 21 7 - 38 U/L Final Glucose 02/10/2023 97 74 - 99 mg/dL Final BUN 02/10/2023 11 7 - 21 mg/dL Final Creatinine 02/10/2023 0.80 0.58 - 0.96 mg/dL Final Sodium 02/10/2023 138 136 - 144 mmol/L Final Potassium 02/10/2023 4.0 3.7 - 5.1 mmol/L Final Chloride 02/10/2023 104 97 - 105 mmol/L Final CO2 02/10/2023 24 22 - 30 mmol/L Final Anion Gap 02/10/2023 10 9 - 18 mmol/L Final Estimated Glomerular Filtration Ra* 02/10/2023 93 >=60 mL/min/1.73m Final WBC 02/10/2023 11.03 (H) 3.70 - 11.00 k/uL Final RBC 02/10/2023 4.77 3.90 - 5.20 m/uL Final Hemoglobin 02/10/2023 15.0 11.5 - 15.5 g/dL Final Hematocrit 02/10/2023 43.0 36.0 - 46.0 % Final MCV 02/10/2023 90.1 80.0 - 100.0 fL Final MCH 02/10/2023 31.4 26.0 - 34.0 pg Final MCHC 02/10/2023 34.9 30.5 - 36.0 g/dL Final RDW-CV 02/10/2023 12.6 11.5 - 15.0 % Final Platelet Count 02/10/2023 240 150 - 400 k/uL Final MPV 02/10/2023 9.8 9.0 - 12.7 fL Final Neutrophils % 02/10/2023 65.9 % Final Abs Neut 02/10/2023 7.26 1.45 - 7.50 k/uL Final Lymphocytes % 02/10/2023 23.4 % Final Abs Lymph 02/10/2023 2.58 1.00 - 4.00 k/uL Final Monocytes % 02/10/2023 7.5 % Final Abs Richardson 02/10/2023 0.83 <0.87 k/uL Final Eosinophils % 02/10/2023 2.1 % Final Abs Eosin 02/10/2023 0.23 <0.46 k/uL Final Basophils % 02/10/2023 0.5 % Final Abs Baso 02/10/2023 0.06 <0.11 k/uL Final Immature Granulocytes % 02/10/2023 0.6 % Final Abs Immature Gran 02/10/2023 0.07 <0.10 k/uL Final NRBC 02/10/2023 0.0 /100 WBC Final Absolute nRBC 02/10/2023 <0.01 <0.01 k/uL Final Diff Type 02/10/2023 Auto Final Impression: 47 year old female with a diagnosis of class 3 obesity here for nonsurgical metabolic weight loss management. Body mass index is 39.01 kg/m . Assessment/Plan: ASSESSMENT/PLAN: 1. Class 3 severe obesity with serious comorbidity in adult, unspecified BMI, unspecified obesity type (HCC) - ICD9: 278.01, ICD10: E66.01 (primary diagnosis) Weight decreasing - Behavioral and pharmacological intervention Discussed with patient to continue protein 60 g daily continue low-carb low sugar foods and continue to manage maladaptive eating behaviors. We also discussed continue with water 60 ounces daily as well as when traveling food considerations. We also discussed increasing her cardio patient needs to increase her cardio to increase her metabolism we discussed various ways such as adding a light arm weights, increase her walking, swimming, bicycling. I have also reviewed the possibility using weight loss medications in effort to reduce patient's appetite. I reviewed the different therapeutic options available including phentermine, Qsymia, Contrave, Saxenda, topiramate, metformin, bupropion and Effexor which all been associated weight loss. At this time we agreed that the patient's best option at this point to be: Increase Ozempic 2 mg subcutaneous weekly injection (Continue metformin 750 mg 1 tablet daily per PCP) Discussed with patient setting 3 small goals that are SMART (Specific, Measurable, Achievable, Relevant, and Time-Bound), to be evaluated at her next visit. I reviewed with the patient the pros and cons of taking these medications. In addition discussed with patient to have at least 60 g of protein daily and at least 60-80 ounces of water daily. We also discussed monitoring blood pressure and reporting anything over 140/90 or greater. Patient verbalized understanding all questions and concerns addressed. Education included discussing thyroid C-cell tumor risk including Medullary Thyroid Carcinoma (MTC).Though studies have shown increased risk of medullary cell cancers only in rats. Patient denies family history of MTC and Multiple Endocrine Neoplasia Syndrome type 2 (MEN 2). I discussed that this medication is associated with acute pancreatitis, including fatal and non-fatal hemorrhagic or necrotizing pancreatitis. Pt does not have a hx of pancreatitis. Educated patient to monitor for signs such as persistent severe abdominal pain, sometimes radiating to the back, with or without vomiting. If this occurs, stop medication immediately and go to ER. The most common adverse reactions include nausea, vomiting, diarrhea, constipation and injection site erythema. These may dissipate over time. Helpful tip GLP-1 RA increases beta cell proliferation. 2. HALIMA (obstructive sleep apnea) - ICD9: 327.23, ICD10: G47.33 Encourage patient to continue follow-up with sleep medicine - SEMAGLUTIDE 2 MG/DOSE (8 MG/3 ML) SUBCUTANEOUS PEN INJECTOR -3. Dietary counseling and surveillance - ICD9: V65.3, ICD10: Z71.3 Reviewed principles of energy metabolism caloric intake and expenditure and rationale for treatment program. Also reinforced need for reduced calorie low-fat nutrition and increase physical activity. - SEMAGLUTIDE 2 MG/DOSE (8 MG/3 ML) SUBCUTANEOUS PEN INJECTOR 4. Type 2 diabetes mellitus with other specified complication, without long-term current use of insulin (HCC) - ICD9: 250.80, ICD10: E11.69 - Improving control - Discussed need for and benefit of weight loss. BMI 39.01 kg/(m^2) - SEMAGLUTIDE 2 MG/DOSE (8 MG/3 ML) SUBCUTANEOUS PEN INJECTOR 5. BMI 40.0-44.9, adult (HCC) - ICD9: V85.41, ICD10: Z68.41 Weight decreasing - Behavioral and pharmacological intervention - SEMAGLUTIDE 2 MG/DOSE (8 MG/3 ML) SUBCUTANEOUS PEN INJECTOR The patient is responding adequately to the medication, losing 5 pounds over the last 4 month(s).The weight-related medical comorbidities are improving with weight loss. Patient is doing well otherwise, continues lifestyle modification. Patient remains motivated to lose weight. This note was partially generated using [employer] voice recognition system, and there may be some incorrect words, spellings, and punctuation that were not noted in checking the note before saving. -- We discussed several strategies to track food intake and increase mindfulness around eating. We will start with a self-directed attempt in combination with the above recommendations. -- Encouraged consistency of exercise, with an overall goal of 200 minutes per week. This dose of exercise has been effective in weight loss and maintenance. We discussed that cardiovascular exercise is most beneficial for weight loss initially, but it is important to combine resistance training as there is a loss of lean muscle mass with weight loss. Lenore Morelos APRN [facility] Obesity Medicine I spent a total of 35 minutes on the date of the service which included preparing to see the patient, [id number] patient care, completing clinical documentation, obtaining and/or reviewing separately obtained history, performing a medically appropriate examination, counseling and educating the patient/family/caregiver, ordering medications, tests, or procedures, communicating with other HCPs (not separately reported), independently interpreting results (not separately reported), communicating results to the patient/family/caregiver, and care coordination (not separately reported) 5A's- Assess: I assessed behavioral health risk/factors affecting --- Asked about/assess behavioral health risk(s) and factors affecting choice of behavior change goals --- somewhat sedentry lifestyle ---?snacking ---Lack of exercise Advise: clear, specific, personalized behavior change advice. ---I gave very clear, specific, and personalized behavior change adviced, including information about personal health harms and benefits. Agree: Patient agrees with selected appropriate treatment goals and methods to change behavior Assist: Provided IBT w self-help, handouts, teaching skills and support Using behavior change techniques with self-help and Counseling in achieving Goals. Also discussed supplementing with adjunctive medical treatments when appropriate. Arrange: follow up scheduled, handouts given to patient. documented in this encounter [facility] 05-30-2023 Instructions Billie Lozoya MD - 05/30/2023 1:48 PM EDT Sleep Hygiene and Good Sleep Habits Establish a regular routine that includes going to bed and getting up at the same time every day, even on weekends. Maintaining a consistent sleep-wake cycle is the wynn to better health overall. Get an adequate amount of sleep every night. Determine the amount of sleep you need by keeping track of how long you sleep without using an alarm clock for a week. Maintain this personal sleep requirement. Go to bed when you are sleepy. If you have difficulty falling asleep or wake up shortly after going to sleep, leave the bedroom and read quietly or do some other relaxing activity. Avoid bright lights as this can cue your wake cycle. Develop sleep rituals before going to bed. Do the same things in the same order before going to bed to cue your body to slow down and relax. Avoid stress and worries at bedtime. Address tomorrow's activities, concerns, or distractions earlier in the day. Certain activities, such as listening to soft music, reading, or taking a warm bath, can help you wind down. Use your bed for sleeping and sex only. Often, doing other activities in bed like watching TV, paying bills, or working only serve to initiate worries and concerns. Let your mind associate the bed with sleeping, relaxing, and pleasure. Avoid heavy meals late in the evening; similarly, avoid going to bed hungry. A light snack, especially dairy foods, can help you sleep. Reduce your intake of caffeine and nicotine 4-6 hours before going to sleep. Stimulants interfere with your ability to fall asleep and progress into deep sleep. 200mg caffeine (a large Starbucks coffee) taken at 8 AM will impair the sleep architecture that night. Avoid alcohol 4-6 hours before bedtime. As a depressant that slows brain activity, alcohol may initially make you tired, but you will end up having fragmented sleep. In addition, being tired intensifies the effects of alcohol. Alcohol also aggravates snoring and sleep apnea particularly in men. Exercise regularly. Regular exercise, even for 20 minutes, 3 times a week, promotes deep sleep. Don't nap for more than 30 minutes or after 3 PM. Avoiding naps all together will ensure that you are tired at night. Longer naps disrupt the body's ability to stay asleep. Maintain a dark, quiet room to sleep in at a temperature with which you are comfortable. Use sleeping aids conservatively, and avoid using them for more than one or two nights per month. Avoid sleeping pills altogether if you have obstructive sleep apnea because it can be a deadly combination. documented in this encounter [facility] 05-30-2023 History of Presen t illness Narrative Images from the original note were not included. Pulmonary Consult Patient Name: Tameka Allan Overview Notes of Problems Addressed This Visit Pulmonary HALIMA (obstructive sleep apnea) Other Obesity, Class III, BMI >= 40 - Primary ASSESSMENT: H/o HALIMA Obesity - now in medical bariatric program has lost weight - 30 lbs PLAN: Consider PSG Follow with bariatric program Consider improve sleep hygiene Return to Office: 4 months PRIMARY CARE PHYSICIAN: Zainab Fountain (Stagecraft Professor) Patient Ms. Allan states Zainab Fountain (Dylan) requests consultation regarding possible HALIMA. My final recommendations will be communicated to the requesting health care provider by way of the shared medical record for internal providers or letter via the [employer] for external providers. CHIEF COMPLAINT: possible HALIMA HPI: This is a 47 year old person who presents with possible HALIMA Never smoked regularly INITIAL VISIT WITH ME 05/30/2023 Sleep history: History of snoring HSAT last year - 2021 - HALIMA Given CPAP - tried it for 1-2 weeks and then returned it. Overall sleep: Poor overall Re: sleep To bed: 10-11 SL: 1 hour --Activities while trying to sleep: watching tv - often going to sleep with tv on Wakes for day: 6 am Weekend sleep schedule: sleeps in until 7-8 am NA: 1 x due to nocturia SL after reawakin-30 min --Activities while trying to sleep: tossing and turning - dark quiet room Typical hours of sleep: 6 hours A Good nights sleep: 6-7 hours Sleep is unrefreshing RLS Symptoms: none Preferred sleep position: side and back Naps: none Caffeinated Beverages: 1 cup coffee in am. Morning Headaches: none Dry mouth/Sore throat: often Loud witnessed snoring; No subjective snoring No witnessed apneas; No subjective apneas Sleep medications: none Family hx: none Prior Studies: documented sleep apnea as above Sleep Paralysis: No Hypnogogic hallucinations: No Cataplexy: No Weight 261 max - now down 30 lbs [place] Sleepiness Scale: Total: 5 REVIEW OF SYSTEMS: GENERAL: No fevers, chills or sweats HEENT: Negative for frequent or significant headaches, No changes in hearing or vision, no nose bleeds or other nasal problems, No dysphagia RESPIRATORY: Negative for cough, sputum production or hemoptysis, No wheezing or dyspnea CARDIOVASCULAR: Negative for chest pain, palpitations, Negative for lower extremity edema GI: No abdominal pain, nausea or vomiting, No diarrhea or constipation, No hematochezia or hematemesis : No dysuria, polyuria, hematuria or nocturia NEURO: No history of headaches, syncope, paralysis, seizures or tremors A complete ROS was performed and all other systems are negative No question data found. PAST MEDICAL HISTORY: 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 Right tibial fracture Snoring PAST SURGICAL HISTORY: PAST SURGICAL HISTORY Procedure Laterality Date BREAST BIOPSY 07/28/2015 COLONOSCOPY FLX DX W/COLLJ SPEC WHEN PFRMD 11/19/2013 Colonoscopy COLONOSCOPY FLX DX W/COLLJ SPEC WHEN PFRMD N/A 11/22/2016 COLONOSCOPY FLX DX W/COLLJ SPEC WHEN PFRMD 12/13/2019 Colonoscopy 5 year interval EXTRACTION, ERUPTED TOOTH OR EXPOSED ROOT (ELEVATION AND/OR FORCEPS REMOVAL) 1998 wisdom teeth INSERT INTRAUTERINE DEVICE 07/05/2015, 06/22/2020 LAPAROSCOPIC CHOLECYSTECTOMY 08/30/2022 MAST MODF RAD W/AX LYMPH NOD W/WO PECT/ABELARDO MIN Right 02/05/2016 SALPINGECTOMY COMPLETE/PARTIAL UNI/BI SPX 06/22/2020 bilateral salpingectomy, sterilization, IUD insertion FAMILY HISTORY: FAMILY HISTORY Problem Relation Age of Onset Hypertension Mother Colon Cancer Father passed in 1983 in his 50's other (precancerous breast lesion) Maternal Grandmother 80 Ovarian cancer Paternal Grandmother Other 2nd degree relative Cancer Paternal Grandfather kidney Breast Cancer Other 2nd degree relative Ovarian cancer Other SOCIAL HISTORY: Social History Tobacco Use Smoking status: Former Packs/day: 0.25 Years: 5.00 Additional pack years: 0.00 Total pack years: 1.25 Types: Cigarettes Start date: 1995 Quit date: 02/20/2007 Years since quittin.2 Smokeless tobacco: Never Vaping Use Vaping Use: Never used Substance Use Topics Alcohol use: Yes Alcohol/week: 2.0 standard drinks of alcohol Types: 1 Cans of beer, 1 Glasses of wine per week Comment: occassional, social Drug use: No MEDICATIONS: semaglutide (OZEMPIC) 1 mg/dose (4 mg/3 mL) pen Inject 1 mg subcutaneously one time a week. Insulin [place], Disposable, (NOVOFINE 32) 32 gauge x 1/4 1 Each as directed. cholecalciferol, Vitamin D3, (VITAMIN D3) 1,250 mcg (50,000 unit) cap capsule Take 1 capsule by mouth one time a week. Transition to 2,000-4,000 units of Vitamin D OTC after completing 12 weeks metFORMIN ER (GLUCOPHAGE XR) 500 mg 24 hr tablet 750 mg daily with breakfast. levonorgestrel (LILETTA) 20.1 mcg/24 hrs (6 yrs) 52 mg IUD 1 Each by INTRAUTERINE route as directed. put in at [facility] ALLERGIES Allergen Reactions Seasonal Allergies Unknown PHYSICAL EXAM: BP 140/90 Pulse 66 Temp (Src) 97.5 (Temporal Artery) Ht 5' 5 (1.65m) Wt 237 lb 12.8 oz (107.9kg) SpO2 98% LMP 07/05/2015 BMI 39.57 kg/(m^2). GENERAL: Alert, no distress, cooperative SKIN: Skin color, texture, turgor normal. No rashes or lesions. HEAD/SINUSES: No significant findings, no sinus tenderness EYES: PERRL, EOM'S INTACT, Conjunctivae & Sclerae Normal EARS: External ears normal. NOSE: Nares normal. Septum midline. OROPHARYNX: Grossly normal Dentition good NECK: No accessory muscle use, supple BACK: Back symmetric, Normal curvature, ROM normal, No CVAT. LUNGS: clear to auscultation Negative findings: normal respiratory rate and rhythm, chest symmetric with normal A/P diameter, no chest deformities noted, no chest wall tenderness, diaphragmatic excursion normal CARDIAC: Regular rate and rhythm, no significant murmurs, rubs or gallops ABDOMEN: Soft, Nontender, Nondistended EXTREMITIES: Normal, Warm, No cyanosis, no clubbing No edema NEURO: muscle tone normal, muscle strength normal Moves bilaterally, nonfocal, sensation grossly intact The remainder of the physical exam is noncontributory. DATA: Sleep Studies: None Radiology: Reviewed Laboratory: Reviewed SIGNATURE: Billie Lozoya MD CC: Zainab Fountain (Stagecraft Professor) documented in this encounter [facility] 01-24-2023 Miscellaneous Notes Return in about 12 weeks (around 04/18/2023). No answer ,lvm documented in this encounter [facility] 11-06-2022 Instructions Shanique Jacinto APRN.MANAGER BUSINESS PLANNING - 11/06/2022 10:53 AM EST Images from the original note were not included. Breast Self-Exam What is a breast self-exam? A breast self-exam is a technique that a woman can use to examine her breasts to look for changes (such lumps or thickenings) that may signal breast cancer. When a woman detects breast cancer in its early stages, she greatly improves her chances for surviving the disease. Most breast lumps (80 percent) are not cancerous, but you can help ensure your breast health by regularly performing a breast self-exam. When should I perform a breast self-exam? You should perform a breast self-exam once a month, three to five days after your menstrual period ends. If you have stopped menstruating, perform the exam on the same day of each month, such as the first day of the month or a day easy for you to remember, like your date. The exam will take several minutes to perform. With each exam, you will become familiar with the contours and feel of your breasts and will be more alert to changes. 1. The first part of the exam is the inspection, or looking at your breasts. Stand undressed from waist up in front of a large mirror in a well-lit room. Look at your breasts. Don't be alarmed if they do not look equal in size or shape. Most women's breasts are not. With your arms relaxed by your sides, look for any changes in your breasts' size, shape, texture, or skin. Look for any sores as well as any puckering, dimpling, or discoloration of the skin. Inspect your nipples and look for any sores, peeling, or change in the direction of the nipples. 2. Next, place your hands on your hips and press down firmly to tighten the chest muscles beneath your breasts. Turn from side to side so you can inspect the outer part of your breasts. 3. Bend forward toward the mirror. Roll your shoulders and elbows forward to tighten your chest muscles. Your breasts will fall forward. Look for any changes in the shape or contour of your breasts. 4. Now, clasp your hands behind your head and press your hands forward. Again, turn from side to side to inspect your breasts' outer portions. Remember to inspect the border underneath your breasts. You may need to lift your breasts with your hand to see this area. 5. Check your nipples for discharge (fluid). Place your thumb and forefinger on the tissue surrounding the nipple, and pull outward toward the end of the nipple. Look for any discharge. Repeat on your other breast. In the shower 6. The second part of the exam is palpation, or feeling for changes. Use the finger pads of your three middle fingers on each hand to feel for lumps. It is helpful to have your hands slippery with soap and water. Check for any lumps or thickening in your underarm area. Place your left hand on your hip and reach with your right hand to feel in the left armpit. Repeat on the other side. 7. Check both sides for lumps or thickenings below your collarbone. 8. With soapy hands, support the breast with one hand while using the other hand to feel the tissue. Use the flat part of your fingers to press gently into the breast. Follow an up-and-down pattern along the breast, moving from bra line to collarbone. Continue the pattern until you have covered the entire breast. Repeat on the other side. Lying down 9. Next, lie down and place a small pillow or folded towel under your right shoulder. Put your right hand behind your head. Place your left hand on the upper portion of your right breast with fingers together and flat. Body lotion may help to make palpation easier. 10. Think of your breast as a face on a clock. Start at 12 o'clock and move toward 1 o'clock in small circular motions. Continue around the entire [place] until you reach 12 o'clock again. Keep your fingers flat and in constant contact with your breast. When the [place] is complete, move in one inch toward the nipple and complete another [place] around the clock. Continue in this pattern until your entire breast has been palpated. Make sure to palpate the upper outer areas that extend into your armpit. 11. Place your fingers flat and directly on top of your nipple. Feel beneath the nipple for any changes. Gently press your nipple inward. It should move easily. Repeat steps 9, 10, and 11 on your other breast. What should I do if I find a lump? See your physician if you discover any new breast changes, changes that persist after your menstrual cycle, or changes that concern you. Conditions that should be checked by a physician include: An area that is distinctly different from any other area on either breast A lump or thickening in or near the breast or in the underarm that persists through the menstrual cycle A change in the size, shape, or contour of the breast A mass or lump, which may feel as small as a pea A marble-like area under the skin A change in the feel or appearance of the skin on the breast or nipple (dimpled, puckered, scaly, or inflamed [red, warm, or swollen]) Bloody or clear fluid discharge from the nipples Redness of the skin on the breast or nipple References [employer]. Breast Cancer Accessed 09/13/2013. Angeles Lewis, Noe M, Akshat H. Breast disorders and breast cancer screening. In: Madai DEL CID, ed. [facility]: Current Clinical Medicine 2010. 2nd ed. [place], [place]: Anna Marie Gonzalez; 2010:section 15. Copyright 4647-2961 [facility]. All rights reserved This information is provided by the [facility] and is not intended to replace the medical advice of your doctor or health care provider. Please consult your health care provider for advice about a specific medical condition. For additional health information, please contact the Center for Consumer Health Information at the [facility] or toll-free extension [phone]. If you prefer, you may visit [email or web address] documented in this encounter [facility] 11-06-2022 Nurse Note Patient presents for yearly CBE and films. No new breast concerns. Monalisa Farnsworth LPN documented in this encounter [facility] 11-06-2022 History of Presen t illness Narrative Images from the original note were not included. Shanique Jacinto, INTELLIGENCE OPERATIONS-MANAGER BUSINESS PLANNING, OCN Breast [facility] [address] [place], [place] [id number] Date of Visit: 11/06/2022 Patient Name: Tameka Allan Date of : 1975 Established Visit Breast Surgeon: Sade Wesley MD Medical Oncologist: Janna Hay MD SUBJECTIVE Chief Complaint: Patient presents with: Yearly Exam HPI Tameka Allan is a 46 year old female who presents today for annual breast imaging and clinical breast exam. This is in follow up to a diagnosis of RIGHT breast cancer diagnosed 07/28/2015. She is an established [facility] patient and was last seen in the [facility] 11/05/2021. She denies any current breast concerns including palpable breast lumps or masses, enlarged lymph nodes, pain, tenderness, skin changes, erythema, nipple discharge or breast trauma. She does endorse RIGHT chest wall / axillary tightness. She was offered a consult to physical therapy but would like to try stretching exercises she previously used. We reviewed her personal and family medical histories, updates were completed. RIGHT axilla core biopsies ---> invasive poorly differentiated carcinoma. Associated necrosis and fibrous parenchyma. Adipose tissue. RIGHT breast core biopsies ---> invasive poorly differentiated carcinoma. ER negative / FL negative / HER2 negative by FISH Clinical staging: IIIB - T4d N1 M0 (Dr. Hay) Genetic testing negative Neoadjuvant AC 4 cycles followed by 12 weekly Taxol treatments, complete clinical response 02/05/2016 RIGHT modified radical mastectomy ---> no evidence of residual malignancy identified. RIGHT axillary lymph node dissection ---> 16 lymph nodes negative for malignancy (0). Pathologic staging: ypT0 ypN0 Post-mastectomy XRT completed (Dr. Leodan Zapien) Interim History: recently seen for non-surgical bariatric weight loss consultation, started ozempic and metformin with goal to lose approximately 95 lbs. Nursing Notes: Monalisa Farnsworth LPN 11/06/2022 10:36 AM Signed Patient presents for yearly CBE and films. No new breast concerns. Monalisa Farnsworth LPN REVIEW OF SYSTEMS: Complete 10 system ROS done and negative except as stated above in the HPI. Current Outpatient Medications Medication Sig Dispense Refill semaglutide (OZEMPIC) 0.25 mg or 0.5 mg(2 mg/1.5 mL) pen Inject 0.25 mg subcutaneously one time a week. 1 mL 1 cholecalciferol, Vitamin D3, (VITAMIN D3) 1,250 mcg (50,000 unit) cap capsule Take 1 capsule by mouth one time a week. Transition to 2,000-4,000 units of Vitamin D OTC after completing 12 weeks 12 capsule 0 metFORMIN ER (GLUCOPHAGE XR) 500 mg 24 hr tablet 750 mg daily with breakfast. levonorgestrel (LILETTA) 20.1 mcg/24 hrs (6 yrs) 52 mg IUD 1 Each by INTRAUTERINE route as directed. put in at [facility] 1 Intra Uterine Device 0 calcium-vitamin D3-vitamin K 500 mg-1,000 unit-40 mcg chew Take by mouth once daily. No current facility-administered medications for this visit. I have performed the physical exam on 11/06/2022 - all new findings noted below. 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 Right tibial fracture Snoring PAST SURGICAL HISTORY Procedure Laterality Date BREAST BIOPSY 07/28/2015 COLONOSCOPY FLX DX W/COLLJ SPEC WHEN PFRMD 11/19/2013 Colonoscopy COLONOSCOPY FLX DX W/COLLJ SPEC WHEN PFRMD N/A 11/22/2016 COLONOSCOPY FLX DX W/COLLJ SPEC WHEN PFRMD 12/13/2019 Colonoscopy 5 year interval EXTRACTION, ERUPTED TOOTH OR EXPOSED ROOT (ELEVATION AND/OR FORCEPS REMOVAL) 1998 wisdom teeth INSERT INTRAUTERINE DEVICE 07/05/2015, 06/22/2020 LAPAROSCOPIC CHOLECYSTECTOMY 08/30/2022 MAST MODF RAD W/AX LYMPH NOD W/WO PECT/ABELARDO MIN Right 02/05/2016 SALPINGECTOMY COMPLETE/PARTIAL UNI/BI SPX 06/22/2020 bilateral salpingectomy, sterilization, IUD insertion Social History Tobacco Use Smoking status: Former Packs/day: 0.25 Years: 5.00 Pack years: 1.25 Types: Cigarettes Start date: 1995 Quit date: 02/20/2007 Years since quittin.7 Smokeless tobacco: Never Vaping Use Vaping Use: Never used Substance Use Topics Alcohol use: Yes Alcohol/week: 2.0 standard drinks Types: 1 Cans of beer, 1 Glasses of wine per week Comment: occassional, social Drug use: No FAMILY HISTORY Problem Relation Age of Onset Hypertension Mother Colon Cancer Father passed in 1983 in his 50's other (precancerous breast lesion) Maternal Grandmother 80 Ovarian cancer Paternal Grandmother Other 2nd degree relative Cancer Paternal Grandfather kidney Breast Cancer Other 2nd degree relative Ovarian cancer Other The ROS, medical, surgical, family, and social history were reviewed by Shanique Jacinto APRN.MANAGER BUSINESS PLANNING ALLERGIES Allergen Reactions Seasonal Allergies Unknown Current Outpatient Medications Medication Sig semaglutide (OZEMPIC) 0.25 mg or 0.5 mg(2 mg/1.5 mL) pen Inject 0.25 mg subcutaneously one time a week. cholecalciferol, Vitamin D3, (VITAMIN D3) 1,250 mcg (50,000 unit) cap capsule Take 1 capsule by mouth one time a week. Transition to 2,000-4,000 units of Vitamin D OTC after completing 12 weeks metFORMIN ER (GLUCOPHAGE XR) 500 mg 24 hr tablet 750 mg daily with breakfast. levonorgestrel (LILETTA) 20.1 mcg/24 hrs (6 yrs) 52 mg IUD 1 Each by INTRAUTERINE route as directed. put in at [facility] calcium-vitamin D3-vitamin K 500 mg-1,000 unit-40 mcg chew Take by mouth once daily. No current facility-administered medications for this visit. OBJECTIVE BP 121/84 Pulse 72 Ht 165.1 cm (5' 5) Wt 112.9 kg (249 lb) LMP 07/05/2015 (Exact Date) BMI 41.44 kg/m BMI 41.44 kg/(m^2) Physical Exam BREAST EXAM: On visual inspection (seated, with hands on hips and with hands above head), the breasts are asymmetrical. RIGHT Skin changes: mastectomy and axillary incisional scars noted, NAC surgically absent Axillary adenopathy: No Supraclavicular adenopathy: No Palpable masses: No, incisional scar smooth with no palpable nodules or areas of concern Tenderness: No LEFT Skin changes: No Nipple retraction:No Axillary adenopathy: No Supraclavicular adenopathy: No Palpable masses: No Tenderness: No Nipple discharge: No ASSESSMENT/PLAN: 1. Inflammatory breast cancer, right (HCC) - ICD9: 174.9, ICD10: C50.911 (primary diagnosis) 2. History of right mastectomy - ICD9: V45.71, ICD10: Z90.11 3. BRCA negative - ICD9: V82.71, ICD10: Z13.71 Tameka Allan is a 46 year old female who presents today for unilateral LEFT breast annual imaging and clinical breast exam. She is status post right modified radical mastectomy on 02/05/2016 after receiving neoadjuvant AC-T for right inflammatory breast cancer, invasive ductal carcinoma grade 3, ER/FL- H2N- clinical stage IIIB [[id number]]. FInal pathology showed no residual cancer and 16 negative lymph nodes. Pathological stage ypT0N0(0/16)M0. She did complete post-mastectomy radiation in [place] with Dr. Alcocer. She denies any breast related concerns or complaints, with the exception of RIGHT chest wall tightness. There are no concerning findings demonstrated on today's clinical breast exam. We discussed the report from today's imaging as follows: UNILATERAL LEFT DIGITAL SCREENING MAMMOGRAM TOMOSYNTHESIS WITH CAD: 11/06/2022 HISTORY: Encounter For Screening Mammogram For Breast Cancer Routine screening mammogram. Patient reports no breast problems. Personal history of breast cancer. Status post right mastectomy. RESULT: TECHNIQUE: The study was acquired using full field digital technology and interpreted from soft copy. Digital Breast Tomosynthesis (DBT) images were obtained and used to assist in the interpretation of this examination. Current study was also evaluated with a Computer Aided Detection (CAD). Comparison is made to exams dated: 11/05/2021 mammogram, 11/03/2020 mammogram, and 09/14/2019 mammogram - [facility]. There are scattered fibroglandular elements in left breast. No significant masses, calcifications, or other findings are seen in the breast. There has been no significant interval change. IMPRESSION: NEGATIVE There is no mammographic evidence of malignancy. A 1 year screening mammogram is recommended. Rico jacob/penrad:11/06/2022 09:27:40 Nuclear Control Room Operator(s): Eladia Barahona(Madhav)(Joan), [facility] letter sent: Normal over 40 Mammogram BI-RADS: 1 Negative She will maintain vigilant breast awareness and continue monthly self breast exams. She will contact us with any concerns. She is clinically stable and has no evidence of disease. Portions of this note including HPI, ROS, impression/plan, and examination may have been copied forward as to provide important historical information essential in contributing to medical decision making. Documentation has been reviewed and edited as necessary to support clinical decision making for today's visit 11/06/2022. Follow up: No follow-ups on file. Medical Decision Making: Problems: Low: Stable chronic illness Data: Unique test result(s) reviewed: 3+ Unique test(s) ordered: 1 Risk: Low: Low risk from testing/treatment Medical Decision Making Level: 3 - Low Shanique Jacinto APRN.CNP I verified the chief medical physicist/nurse documentation in the medical record, and made appropriate changes. I personally performed a history,physical exam and medical decision making. Shanique Jacinto APRN-CAMILLA, OCN documented in this encounter [facility] 11-06-2022 History of Presen t illness Narrative Radiology Service Progress Note PATIENT NAME: Tameka Allan DATE OF SERVICE: November 06, 2022 TIME: 9:09 AM PATIENT IDENTITY VERIFICATION COMPLETED USING TWO (2) IDENTIFIERS: Name and Date of confirmed by patient verbally. FALL SCREENING: Has the patient had 2 falls in the last year or 1 fall with injury or currently using an Ambulatory Assistive Device (Walker, Cane, Wheelchair, Crutches, etc.)? No PATIENT GENDER DATA: Female. status: : No status: NO. PATIENT RELEVANT IMPLANT DATA REVIEWED: Not Applicable RADIOLOGY DEPARTMENT: Mammography PERIPHERAL IV DATA: Not applicable SIGNED BY: RT Brooklyn(R) November 06, 2022 9:09 AM documented in this encounter [facility] 11-06-2022 Miscellaneous Notes [facility] [address] [place] [address] November 06, 2022 PID: [id number] Tameka Mccray [address] [facility] [address] [place] [address] Dear Jacki Allan, We are pleased to inform you that the results of your recent breast imaging exam on 11/06/2022 are normal. Early detection of cancer is very important. We also understand recommendations regarding breast cancer screening are controversial. Please discuss with your primary care provider which strategy is best for you and whether a mammogram is right for you. Your imaging studies and report will be kept on file at [facility] as part of your permanent medical record and are available for your continuing care. Thank you for allowing us to help in meeting your health care needs. Sincerely, Dr. Ramos Interpreting Radiologist [facility] (Normal over 40) documented in this encounter [facility] 09-09-2022 History of Presen t illness Narrative Subjective: Patient is status post a laparoscopic cholecystectomy completed at [facility] on 08/28/2022. Pathology report showed chronic cholecystitis with cholesterolosis and cholelithiasis as well as 2 benign lymph nodes she is tolerating a diet she has occasional discomfort when she twists yawns or coughs initially her bowel movements were little bit loose but now they are firming back up. Objective:Blood pressure 126/82, pulse 71, temperature 36.2 C (97.1 F), last menstrual period 07/05/2015, SpO2 97 %. Incisions are healing up nicely there is no signs of cellulitis. Assessment aftercare Plan: She can go about her normal activities of daily living. She has a business trip planned on the and I think that that is okay for her to fly. documented in this encounter [facility] 08-28-2022 History of Past i llness Narrative Problem Noted Date Resolved Date Calculus of gallbladder with cholecystitis 08/2808/28/2022 RUQ pain 08/28/2022 08/28/2022 Colon cancer screening 11/22/2016 7 documented as of this encounter (statuses as of 09/09/2022) [address]16-2022 History of Past illness Narrative* Problem Noted Date Resolved Date Calculus of gallbladder with cholecystitis 08/2808/28/2022 RUQ pain 08/28/2022 08/28/2022 Colon cancer screening 11/22/2016 7 documented as of this encounter (statuses as of 10/31/2022) [address]16-2022 History of Past illness Narrative* Problem Noted Date Resolved Date Calculus of gallbladder with cholecystitis 08/2808/28/2022 RUQ pain 08/28/2022 08/28/2022 Colon cancer screening 11/22/2016 7 documented as of this encounter (statuses as of 11/06/2022) [address]16-2022 History of Past illness Narrative* Problem Noted Date Resolved Date Calculus of gallbladder with cholecystitis 08/2808/28/2022 RUQ pain 08/28/2022 08/28/2022 Colon cancer screening 11/22/2016 7 documented as of this encounter (statuses as of 11/07/2022) [address]16-2022 History of Past illness Narrative* Problem Noted Date Resolved Date Calculus of gallbladder with cholecystitis 08/2808/28/2022 RUQ pain 08/28/2022 08/28/2022 Colon cancer screening 11/22/2016 7 documented as of this encounter (statuses as of 11/08/2022) [address]16-2022 History of Past illness Narrative* Problem Noted Date Resolved Date Calculus of gallbladder with cholecystitis 08/2808/28/2022 RUQ pain 08/28/2022 08/28/2022 Colon cancer screening 11/22/2016 7 documented as of this encounter (statuses as of 01/25/2023) [address]16-2022 History of Past illness Narrative* Problem Noted Date Resolved Date Calculus of gallbladder with cholecystitis 08/2808/28/2022 RUQ pain 08/28/2022 08/28/2022 Colon cancer screening 11/22/2016 7 documented as of this encounter (statuses as of 01/27/2023) [address]16-2022 History of Past illness Narrative* Problem Noted Date Resolved Date Calculus of gallbladder with cholecystitis 08/2808/28/2022 RUQ pain 08/28/2022 08/28/2022 Colon cancer screening 11/22/2016 7 documented as of this encounter (statuses as of 02/12/2023) [address]16-2022 History of Past illness Narrative* Problem Noted Date Diagnosed Date Resolved Date Calculus of gallbladder with cholecystitis 08/28/2022 08/28/2022 RUQ pain 08/28/2022 08/28/2022 Colon cancer screening 11/22/201611/22 documented as of this encounter (statuses as of 05/30/2023) [address]16-2022 History of Past illness Narrative* Problem Noted Date Diagnosed Date Resolved Date Calculus of gallbladder with cholecystitis 08/28/2022 08/28/2022 RUQ pain 08/28/2022 08/28/2022 Colon cancer screening 11/22/201611/22 documented as of this encounter (statuses as of 06/10/2023) [facility]11-16-2022 History of Past illness Narrative* Problem Noted Date Diagnosed Date Resolved Date Calculus of gallbladder with cholecystitis 08/28/2022 08/28/2022 RUQ pain 08/28/2022 08/28/2022 Colon cancer screening 11/22/201611/22 documented as of this encounter (statuses as of 07/28/2023) [address]16-2022 History of Past illness Narrative* Problem Noted Date Diagnosed Date Resolved Date Calculus of gallbladder with cholecystitis 08/28/2022 08/28/2022 RUQ pain 08/28/2022 08/28/2022 Colon cancer screening 11/22/201611/22 documented as of this encounter (statuses as of 08/21/2023) [address]16-2022 History of Past illness Narrative* Problem Noted Date Diagnosed Date Resolved Date Calculus of gallbladder with cholecystitis 08/28/2022 08/28/2022 RUQ pain 08/28/2022 08/28/2022 documented as of this encounter (statuses as of 08/27/2023) [facility]11-16-2022 History of Past illness Narrative* Problem Noted Date Diagnosed Date Resolved Date Calculus of gallbladder with cholecystitis 08/28/2022 08/28/2022 RUQ pain 08/28/2022 08/28/2022 documented as of this encounter (statuses as of 09/24/2023) [facility]11-16-2022 History of Past illness Narrative* Problem Noted Date Diagnosed Date Resolved Date Calculus of gallbladder with cholecystitis 08/28/2022 08/28/2022 RUQ pain 08/28/2022 08/28/2022 documented as of this encounter (statuses as of 11/17/2023) [facility]-16-2022 History of Past illness Narrative* Problem Noted Date Diagnosed Date Resolved Date Calculus of gallbladder with cholecystitis 08/28/2022 08/28/2022 RUQ pain 08/28/2022 08/28/2022 documented as of this encounter (statuses as of 12/11/2023) [facility]-16-2022 History of Past illness Narrative* Problem Noted Date Diagnosed Date Resolved Date Calculus of gallbladder with cholecystitis 08/28/2022 08/28/2022 RUQ pain 08/28/2022 08/28/2022 documented as of this encounter (statuses as of 12/12/2023) [facility]-16-2022 History of Past illness Narrative* Problem Noted Date Diagnosed Date Resolved Date Calculus of gallbladder with cholecystitis 08/28/2022 08/28/2022 RUQ pain 08/28/2022 08/28/2022 documented as of this encounter (statuses as of 12/16/2023) [facility]-16-2022 History of Past illness Narrative* Problem Noted Date Diagnosed Date Resolved Date Calculus of gallbladder with cholecystitis 08/28/2022 08/28/2022 RUQ pain 08/28/2022 08/28/2022 documented as of this encounter (statuses as of 12/24/2023) [facility]-16-2022 History of Past illness Narrative* Problem Noted Date Diagnosed Date Resolved Date Calculus of gallbladder with cholecystitis 08/28/2022 08/28/2022 RUQ pain 08/28/2022 08/28/2022 documented as of this encounter (statuses as of 01/16/2024) [facility]-16-2022 History of Past illness Narrative* Problem Noted Date Diagnosed Date Resolved Date Calculus of gallbladder with cholecystitis 08/28/2022 08/28/2022 RUQ pain 08/28/2022 08/28/2022 documented as of this encounter (statuses as of 01/16/2024) [facility]-16-2022 History of Past illness Narrative* Problem Noted Date Diagnosed Date Resolved Date Calculus of gallbladder with cholecystitis 08/28/2022 08/28/2022 RUQ pain 08/28/2022 08/28/2022 documented as of this encounter (statuses as of 01/19/2024) [facility]-16-2022 History of Past illness Narrative* Problem Noted Date Diagnosed Date Resolved Date Calculus of gallbladder with cholecystitis 08/28/2022 08/28/2022 RUQ pain 08/28/2022 08/28/2022 documented as of this encounter (statuses as of 01/21/2024) [facility]11-16-2022 NoteHNO ID: [id number] Author: Elio Page APRN.CRNA Service: Anesthesiology Author Type: Nurse Swinging Cut Off Saw Operator Type: Anesthesia Procedure Notes Filed: 08/28/2022 8:58 AM Note Text: ANESTHESIOLOGY PROCEDURE NOTE Airway General Information Procedure Start Time/Medication Administration: 08/28/2022 8:38 AM Patient location during procedure: OR Timeout Performed Pre-procedure: timeout performed Consent Obtained: Yes Patient identity confirmed: arm band Staffing COURT BAILIFF: Elio Page APRN.COURT BAILIFF Indications and Patient Condition Indications for airway management: anesthesia Preoxygenated: yes anesthesia circuit Method: sleep Cricoid Pressure: No Manual In-Line Stabilization: No Difficult Mask: No Final Airway Details Final airway type: endotracheal airway Final Endotracheal Airway: ETT Cuffed: yes Successful intubation technique: direct laryngoscopy Endotracheal tube insertion site: oral Blade: Jonel Blade size: #4 ETT size (mm): 7.0 Measured from: lips Measurement (cm): 21 Placement verified by: chest auscultation and capnometry Cormack-Lehane Classification: grade I - full view of glottis Number of attempts at approach: 1 Failed airway: no Unrecognized esophageal intubation: no Airway not difficult SIGNATURE: Elio Page APRN.COURT BAILIFF PATIENT NAME: Tameka Allan DATE: August 28, 2022 TIME: 8:58 AM CSN: [id number] History of Present illness Narrative* Shanique Shea APRN.MANAGER BUSINESS PLANNING - 08/02/2022 8:52 AM EDT Bag Shaker offered: Patient declines. Tameka is a 46 year old who presents for an annual gynecologic exam without complaints. Having lap cholecystectomy 08/28/2023 Dr Clifford. Started metformin for pre-diabetes. Going to [place] for a week this month. Menses: no menses - IUD. Ingrid 06/22/2020 for HMB, random spotting Contraception: tubal sterilization. HPV vaccine: No Last Pap: 01/21/2019 normal HPV: negative History of abnormal pap: Yes, unsure of procedures early ' Last mammogram: 11/05/2021 normal Right mastectomy 2016 - Triple negative breast cancer, chemo, radiation Sexually active: No Documentation from previous visit of 05/11/2021 was copied and pasted, documentation has been reviewed and edited as necessary for today's visit. 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 Right tibial fracture Snoring PAST SURGICAL HISTORY Procedure Laterality Date BREAST BIOPSY 07/28/2015 COLONOSCOPY FLX DX W/COLLJ SPEC WHEN PFRMD 11/19/2013 Colonoscopy COLONOSCOPY FLX DX W/COLLJ SPEC WHEN PFRMD N/A 11/22/2016 COLONOSCOPY FLX DX W/COLLJ SPEC WHEN PFRMD 12/13/2019 Colonoscopy 5 year interval EXTRACTION, ERUPTED TOOTH OR EXPOSED ROOT (ELEVATION AND/OR FORCEPS REMOVAL) 1998 wisdom teeth INSERT INTRAUTERINE DEVICE 07/05/2015, 06/22/2020 MAST MODF RAD W/AX LYMPH NOD W/WO PECT/ABELARDO MIN Right 02/05/2016 SALPINGECTOMY COMPLETE/PARTIAL UNI/BI SPX 06/22/2020 bilateral salpingectomy, sterilization FAMILY HISTORY Problem Relation Age of Onset Hypertension Mother Colon Cancer Father passed in 1983 in his 50's Breast Cancer Other 2nd degree relative Ovarian cancer Paternal Grandmother Other 2nd degree relative other (precancerous breast lesion) Maternal Grandmother 80 Cancer Paternal Grandfather kidney Ovarian cancer Other SOCIAL HISTORY Social History Tobacco Use Smoking status: Former Packs/day: 0.25 Years: 5.00 Pack years: 1.25 Types: Cigarettes Start date: 1995 Quit date: 02/20/2007 Years since quittin.4 Smokeless tobacco: Never Vaping Use Vaping Use: Never used Substance Use Topics Alcohol use: Yes Alcohol/week: 2.0 standard drinks Types: 1 Cans of beer, 1 Glasses of wine per week Comment: occassional, social Drug use: No REVIEW OF SYSTEMS Abdomen: No abdominal pain, nausea, vomiting, diarrhea, or constipation. No bloating, early satiety, indigestion, or increased flatulence. Bladder: No dysuria, gross hematuria, urinary frequency, urinary urgency, or incontinence. Breast: No breast lumps, nipple d/c, overlying skin changes, redness or skin retraction. Allergies and current medication updated:Yes EXAM: BP 110/68 Ht 5' 6 (1.68m) Wt 256 lb (116.1kg) LMP 07/05/2015 BMI 41.34 kg/(m^2). GENERAL: pleasant, female in no apparent distress HEENT: Normocephalic, atraumatic, mucus membranes moist, and no lesions NECK: Supple, full range of motion, no adenopathy, and thyroid normal DERMATOLOGY: Normal, without lesions, non-icteric, and non-hirsute BREAST: left - soft, non-tender,no dominant mass, normal nipple-areolar complex, no lymphadenopathyand no nipple discharge S/p right mastectomy with healed scar CHEST: Normal inspiratory effort ABDOMEN: soft, non-tender, and no masses PELVIC: external genitalia normal, normal Bartholin's glands, urethra, [place]'s glands, no vulvar lesions, no cervical lesions, physiologic discharge present, normal appearing perineal body and perianal region. IUD strings visualized BIMANUAL: uterus normal size, shape and consistency, no adnexal masses, and non-tender RECTOVAGINAL: deferred. NEURO: alert and oriented x3,exam grossly non-focal EXTREMITIES: normal ASSESSMENT/PLAN: 1) Health maintenance: Pap/HPV up to date. Mammogram up to date . Nutrition, exercise and routine health maintenance exams reviewed. Calcium/Vitamin D supplementation information provided. 2) Contraception: tubal sterilization. Contraceptive options reviewed and information provided. 3) STD screening: Declined STD check. 4) Follow up one year or sooner as needed. Answered question about ovarian cancer signs and symptoms. Shanique Shea APRN.CAMILLA documented [facility]The [facility] History of Present illness Narrative* Rico Clifford MD - 08/02/2022 8:24 AM EDT HISTORY AND PHYSICAL Tameka Allan 1975 REFERRING PHYSICIAN: Zainab Fountain (Stagecraft Professor), * CHIEF COMPLAINT: Consult (RUQ pain, Ultra sound done gallstones) HPI: Tameka is a 46 year old female with a complaint of right upper quadrant pain. The patient has had symptoms of right upper quadrant pain for 1 year. The symptoms have maintained, over the past 1 year. The pain does not radiate to the back. Food does aggravate her symptoms. Alleviating factors include: none. The patient was seen by her primary care physician. Tameka underwent an ultrasound. These tests demonstrated cholelithiasis. The patient is referred for evaluation and treatment. The patient is being seen by me today at the request of Dr. Fountain for my opinion and advice regarding Calculus of gallbladder with cholecystitis of other acuity without obstruction (primary encounter diagnosis) Ruq pain. 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 Right tibial fracture Snoring OPERATIONS: PAST SURGICAL HISTORY Procedure Laterality Date BREAST BIOPSY 07/28/2015 COLONOSCOPY FLX DX W/COLLJ SPEC WHEN PFRMD 11/19/2013 Colonoscopy COLONOSCOPY FLX DX W/COLLJ SPEC WHEN PFRMD N/A 11/22/2016 COLONOSCOPY FLX DX W/COLLJ SPEC WHEN PFRMD 12/13/2019 Colonoscopy 5 year interval EXTRACTION, ERUPTED TOOTH OR EXPOSED ROOT (ELEVATION AND/OR FORCEPS REMOVAL) 1998 wisdom teeth INSERT INTRAUTERINE DEVICE 07/05/2015, 06/22/2020 MAST MODF RAD W/AX LYMPH NOD W/WO PECT/ABELARDO MIN Right 02/05/2016 SALPINGECTOMY COMPLETE/PARTIAL UNI/BI SPX 06/22/2020 bilateral salpingectomy, sterilization CURRENT MEDICATIONS: Current Outpatient Medications Medication Sig Dispense Refill metFORMIN ER (GLUCOPHAGE XR) 500 mg 24 hr tablet TAKE 1 TABLET BY MOUTH EACH DAY WITH DINNER. DO NOT CRUSH, CHEW, OR SPLIT. levonorgestrel (LILETTA) 20.1 mcg/24 hrs (6 yrs) 52 mg IUD 1 Each by INTRAUTERINE route as directed. put in at [facility] 1 Intra Uterine Device 0 calcium-vitamin D3-vitamin K 500 mg-1,000 unit-40 mcg chew Take by mouth once daily. No current facility-administered medications for this visit. ALLERGIES: No Known Allergies and Seasonal Allergies PERSONAL HISTORY: Social History Tobacco Use Smoking status: Former Packs/day: 0.25 Years: 5.00 Pack years: 1.25 Types: Cigarettes Start date: 1995 Quit date: 02/20/2007 Years since quittin.4 Smokeless tobacco: Never Vaping Use Vaping Use: Never used Substance Use Topics Alcohol use: Yes Alcohol/week: 2.0 standard drinks Types: 1 Cans of beer, 1 Glasses of wine per week Comment: occassional, social Drug use: No FAMILY HISTORY: FAMILY HISTORY Problem Relation Age of Onset Hypertension Mother Colon Cancer Father passed in 1983 in his 50's Breast Cancer Other 2nd degree relative Ovarian cancer Paternal Grandmother Other 2nd degree relative other (precancerous breast lesion) Maternal Grandmother 80 Cancer Paternal Grandfather kidney Ovarian cancer Other REVIEW OF SYMPTOMS: The review of systems data was entered by the nurse and reviewed by me Nursing Notes: Lenore Mirza LPN 08/02/2022 8:20 AM Signed REVIEW OF SYSTEMS: General: The patient denies fatigue, denies weight loss, denies weight gain, denies feeling hot, and denies feelings of cold. Eyes: The patient denies glaucoma, denies eye injury/surgery, wears glasses or contacts. Ear/Nose/Throat: The patient denies allergies, denies hayfever, denies ear infections, and denies bloody noses. Cardiovascular: The patient denies chest pain, denies heart disease, denies high blood pressure,denies cardiac stent, denies prior heart attack, denies irregular heart beat, denies high cholesterol, denies poor circulation, denies heart failure, other cardiac issues, denies claudication, denies cold feet, denies peripheral arterial stent. Respiratory: The patient denies tuberculosis, denies pneumonia, denies frequent cough, denies pulmonary embolism, denies shortness of breath, and denies coughing up blood. Gastrointestinal: The patient denies difficulty swallowing, denies acid reflux, denies ulcers, denies vomiting, denies jaundice/hepatitis, notes gallbladder problems, denies black or tarry stools, denies hemorrhoids, denies bleeding from rectum, denies diverticulitis, denies constipation, denies diarrhea, denies loss of stool control, and denies hernias. Kidney/Bladder: The patient denies kidney stones, denies urine infections, and denies bloody urine. Skin: The patient denies a history of skin cancer, denies bleeding/changing moles, and denies a history of skin rash. Neurologic: The patient denies a history of epilepsy/convulsions, denies headaches, denies head/spinal injuries, and denies stroke/TIA. Psychiatric: The patient denies psychiatric medications, denies depression, and denies voices, denies substance abuse. Endocrine: The patient denies thyroid disorders, notes diabetes, and denies hormonal problems. Hematologic: The patient denies a history of bruising, denies bleeding, and denies anemia, denies blood clots. Infections: The patient denies a history of measles and mumps, denies rheumatic fever, and denies sexually transmitted diseases. Musculoskeletal: The patient denies back pain/injury, denies back problems, denies sciatica, deniesknee/foot trouble, denies arthritis, or denies gout. When was patient's last Mammogram screening? 2021 Last Colonoscopy: 2019 Lenore Mirza, [place] PHYSICAL EXAMINATION: General: The patient is 46 year old female, well nourished, well hydrated in no acute distress. Thepatient is oriented to time, place, and person. VITALS: Blood pressure 124/82, pulse 84, temperature (!) 35.6 C (96 F), height 167.6 cm (5' 6), weight 116.6 kg (257 lb), last menstrual period 07/05/2015, SpO2 97 %. Body mass index is 41.48 kg/m . HEENT: Normal cephalic, ataumatic, pupils are equally round, sclera are anicteric, mucous membranesare moist, oropharynx is clear. Neck has no masses, asymmetry or lymphadenopathy. Thyroid is unremarkable. Respiratory: Clear to auscultation and percussion. Normal respiratory excursion and pattern. Cardiac: Examination is regular rate and rhythm. Abdominal exam: Normoactive bowel sounds, Soft, non tender in the right upper quadrant negative Jack's sign, with no palpable masses. No hepatosplenomegaly. No palpable hernias. Rectal exam: exam deferred Extremities: no clubbing, cyanosis or edema. No adenopathy. Other: LABORATORY VALUES: As Noted RADIOLOGIC STUDIES: As Noted Above Assessment IMPRESSION: RUQ Pain, Cholelithiasis PLAN: My plan is to perform a laparoscopic cholecystectomy with intraoperative choleangiogram. The planned surgical procedure was discussed extensively with the patient. The risks, benefits, anticipated outcomes and possible complications were mentioned. My staff has also explained the procedure in understandable terms and the patient was given the option to take printed material concerning the planned procedure. The patient had the opportunity to ask questions concerning the planned procedure.The patient freely consents to the planned procedure. Planned Procedure: LAPAROSCOPIC CHOLECYSTECTOMY WITHOUT INTRAOPERATIVE CHOLEANGIOGRAM - 15014-148 Planned antibiotic: Ancef 2gm IVPB conference interpreter to OR SCDs needed - Yes Biscuit Factory Worker Needed - Yes Diagnoses: (K80.18) Calculus of gallbladder with cholecystitis of other acuity without obstruction (primary encounter diagnosis) (R10.11) RUQ pain A letter was sent to Dr. Fountain indicating the above finding for this patient. COVID (Procedure Consent) Procedure Criteria Procedure Criteria: Yes Elective The surgeon/proceduralist and patient have discussed in detail therisk of exposure to and/or potential harm posed by the COVID-19 virus with having a surgery/procedure at this time versus the risk of delaying the surgery/procedure. It is not possible to know eitherthe risk of delaying the surgery or procedure or chance of getting an infection with perfect accuracy, but a joint decision was made between the patient and the surgeon/proceduralist to proceed at this time with the scheduled surgery/procedure as indicated on the consent form. Rico Clifford III, MD documented in this encounterThe [facility]10-21-[facility]22 Nurse Note* Lenore HermesCORDELL - 08/02/2022 8:16 AM EDT REVIEW OF SYSTEMS: General: The patient denies fatigue, denies weight loss, denies weight gain, denies feeling hot, and denies feelings of cold. Eyes: The patient denies glaucoma, denies eye injury/surgery, wears glasses or contacts. Ear/Nose/Throat: The patient denies allergies, denies hayfever, denies ear infections, and denies bloody noses. Cardiovascular: The patient denies chest pain, denies heart disease, denies high blood pressure,denies cardiac stent, denies prior heart attack, denies irregular heart beat, denies high cholesterol, denies poor circulation, denies heart failure, other cardiac issues, denies claudication, denies cold feet, denies peripheral arterial stent. Respiratory: The patient denies tuberculosis, denies pneumonia, denies frequent cough, denies pulmonary embolism, denies shortness of breath, and denies coughing up blood. Gastrointestinal: The patient denies difficulty swallowing, denies acid reflux, denies ulcers, denies vomiting, denies jaundice/hepatitis, notes gallbladder problems, denies black or tarry stools, denies hemorrhoids, denies bleeding from rectum, denies diverticulitis, denies constipation, denies diarrhea, denies loss of stool control, and denies hernias. Kidney/Bladder: The patient denies kidney stones, denies urine infections, and denies bloody urine. Skin: The patient denies a history of skin cancer, denies bleeding/changing moles, and denies a history of skin rash. Neurologic: The patient denies a history of epilepsy/convulsions, denies headaches, denies head/spinal injuries, and denies stroke/TIA. Psychiatric: The patient denies psychiatric medications, denies depression, and denies voices, denies substance abuse. Endocrine: The patient denies thyroid disorders, notes diabetes, and denies hormonal problems. Hematologic: The patient denies a history of bruising, denies bleeding, and denies anemia, denies blood clots. Infections: The patient denies a history of measles and mumps, denies rheumatic fever, and denies sexually transmitted diseases. Musculoskeletal: The patient denies back pain/injury, denies back problems, denies sciatica, deniesknee/foot trouble, denies arthritis, or denies gout. When was patient's last Mammogram screening? 2021 Last Colonoscopy: 2019 Lenore Mirza LPN documented in this encounterThe [facility]10-[facility]-2022 Miscellaneous Notes* Telephone Encounter - Mary Feliciano - 07/23/2022 9:38 AM EDT Fax PCP ref call into the program, LVM documented in this encounterThe [facility]07-12-2022 History of Present illness Narrative* Shanique Jacinto APRN.CAMILLA - 04/23/2022 9:41 PM EDT Images from the original note were not included. Shanique Jacinto APRN-CAMILLA, [facility] [address] [place], [place] [id number] Date of Visit: 11/05/2021 Patient Name: Tameka Allan Date of : 1975 Established Visit Breast Surgeon: Sade Wesley MD Medical Oncologist: Janna Hay MD SUBJECTIVE Chief Complaint: Patient presents with: Cancer Survivorship: consultation HPI Tameka Allan is a 46 year old female who presents today for annual breast imaging and clinical breast exam, in follow up to RIGHT breast cancer diagnosed 07/28/2015. She is an established [facility] patient and was last seen in [facility] 11/08/[address] Wesley. She any current breast concerns including palpable breast lumps or masses, enlarged lymph nodes, pain, tenderness, skin changes, erythema or nipple discharge. She is status post right modified radical mastectomy on 02/05/2016 after receiving neoadjuvant AC-T for right inflammatory breast cancer, invasive ductal carcinoma grade 3, ER/FL- H2N- clinical stage IIIB [[id number]]. FInal pathology showed no residual cancer and 16 negative lymph nodes. Pathological stage [id number](0/16)M0. She completed post mastectomy radiation. Nursing Notes: Marjan Aleman LPN 11/05/2021 10:31 AM Signed Patient presents for Survivorship consultation. Patient states no concerns with her self exam Marjan Aleman LPN No question data found. REVIEW OF SYSTEMS: Complete 10 system ROS done and negative except as stated above in the HPI. Current Outpatient Medications Medication Sig Dispense Refill levonorgestrel (LILETTA) 20.1 mcg/24 hrs (6 yrs) 52 mg IUD 1 Each by INTRAUTERINE route as directed. put in at [facility] 1 Intra Uterine Device 0 calcium-vitamin D3-vitamin K 500 mg-1,000 unit-40 mcg chew Take by mouth once daily. No current facility-administered medications for this visit. I have performed the physical exam on 11/05/2021 - all new findings noted below. PAST MEDICAL HISTORY Diagnosis Date Atypical mole Benign colon polyp BRCA negative 2014 1 & 2 Inflammatory breast cancer right breast, stage 3C- in lymphnodes- triple negative Right tibial fracture Snoring PAST SURGICAL HISTORY Procedure Laterality Date BREAST BIOPSY 07/28/2015 COLONOSCOPY FLX DX W/COLLJ SPEC WHEN PFRMD 11/19/2013 Colonoscopy COLONOSCOPY FLX DX W/COLLJ SPEC WHEN PFRMD N/A 11/22/2016 COLONOSCOPY FLX DX W/COLLJ SPEC WHEN PFRMD 12/13/2019 Colonoscopy 5 year interval EXTRACTION, ERUPTED TOOTH OR EXPOSED ROOT (ELEVATION AND/OR FORCEPS REMOVAL) 1998 wisdom teeth INSERT INTRAUTERINE DEVICE 07/05/2015, 06/22/2020 MAST MODF RAD W/AX LYMPH NOD W/WO PECT/ABELARDO MIN Right 02/05/2016 SALPINGECTOMY COMPLETE/PARTIAL UNI/BI SPX 06/22/2020 bilateral salpingectomy, sterilization Social History Tobacco Use Smoking status: Former Smoker Packs/day: 0.25 Years: 5.00 Pack years: 1.25 Types: Cigarettes Start date: 1995 Quit date: 02/20/2007 Years since quittin.1 Smokeless tobacco: Never Used Vaping Use Vaping Use: Never used Substance Use Topics Alcohol use: Yes Alcohol/week: 2.0 standard drinks Types: 1 Cans of beer, 1 Glasses of wine per week Comment: occassional, social Drug use: No FAMILY HISTORY Problem Relation Age of Onset Hypertension Mother Colon Cancer Father passed in 1983 in his 50's Breast Cancer Other 2nd degree relative Ovarian cancer Paternal Grandmother Other 2nd degree relative other (precancerous breast lesion) Maternal Grandmother 80 Cancer Paternal Grandfather kidney Ovarian cancer Other The ROS, medical, surgical, family, and social history were reviewed by Shanique Jacinto APRN.MANAGER [employer] Allergen Reactions No Known Allergies Unknown Seasonal Allergies Unknown Current Outpatient Medications Medication Sig levonorgestrel (LILETTA) 20.1 mcg/24 hrs (6 yrs) 52 mg IUD 1 Each by INTRAUTERINE route as directed. put in at [facility] calcium-vitamin D3-vitamin K 500 mg-1,000 unit-40 mcg chew Take by mouth once daily. No current facility-administered medications for this visit. OBJECTIVE BP 125/73 Pulse 71 Ht 165.1 cm (5' 5) Wt 73 kg (161 lb) LMP 07/05/2015 (Exact Date) BMI 26.79 kg/m BMI 26.79 kg/(m^2) Physical Exam BREAST EXAM: On visual inspection (seated, with hands on hips and with hands above head), the breasts are asymmetrical. RIGHT Skin changes: well healed mastectomy scar Axillary adenopathy: No Supraclavicular adenopathy: No Palpable masses: No Tenderness: No LEFT Skin changes: No Nipple retraction:No Axillary adenopathy: No Supraclavicular adenopathy: No Palpable masses: No Tenderness: No Nipple discharge: No ASSESSMENT/PLAN: 1. Inflammatory breast cancer, right (HCC) - ICD9: 174.9, ICD10: C50.911 (primary diagnosis) 2. History of right mastectomy - ICD9: V45.71, ICD10: Z90.11 3. Visit for screening mammogram - ICD9: V76.12, ICD10: Z12.31 - Completed breast exam - Set up for mammogram, yearly mammogram recommended - Encouraged monthly BSE - Follow up for annual exam in one year. - CAMELIA SCREENING W CHANCE Allan is a 43 year old female with a history of right inflammatory breast cancer who is status post neoadjuvant chemotherapy, right modified radical mastectomy in 2016, and post mastectomy radiation. Today, there was nothing suspicious on her clinical exam or left mammogram. We discussed the report from today's imaging as follows: UNILATERAL LEFT DIGITAL SCREENING MAMMOGRAM TOMOSYNTHESIS WITH CAD POST MASTECTOMY: 11/05/2021 HISTORY: Breast Screening Routine screening mammogram. Patient reports no breast problems. Status post right mastectomy. RESULT: TECHNIQUE: The study was acquired using full field digital technology and interpreted from soft copy. Digital Breast Tomosynthesis (DBT) images were obtained and used to assist in the interpretation of this examination. Current study was also evaluated with a Computer Aided Detection (CAD). Comparison is made to exams dated: 11/03/2020 mammogram, 09/14/2019 mammogram, 09/10/2018 mammogram, and 09/02/2017 mammogram - [facility]. There are scattered fibroglandular elements in left breast. No significant masses, calcifications, or other findings are seen in the breast. There has been no significant interval change. IMPRESSION: NEGATIVE There is no mammographic evidence of malignancy. A 1 year screening mammogram is recommended. Michell johnson/rosangela:11/05/2021 09:49:00 Mammogram BI-RADS: 1 Negative According to NCCN guidelines, she should have an H&P done 1-4 times per year and annual mammograms. I will see her back in 1 year. She will maintain vigilant breast awareness and continue monthly self breast exams. She will contact us with any concerns. She is clinically stable and has no evidence of disease. Portions of this note including HPI, ROS, impression/plan, and examination may have been copied forward as to provide important historical information essential in contributing to medical decision making. Documentation has been reviewed and edited as necessary to support clinical decision making for today's visit 11/05/2021. Follow up: Return in about 1 year (around 11/06/2022) for LEFT UNILATERAL CHANCE MAMMOGRAM, CLINICAL BREAST EXAM. Medical Decision Making: Problems: Low: Stable chronic illness Data: Unique test result(s) reviewed: 3+ Unique test(s) ordered: 1 Risk: Low: Low risk from testing/treatment Medical Decision Making Level: 3 - Low Shanique Jacinto APRN.CNP I verified the chief medical physicist/nurse documentation in the medical record, and made appropriate changes. I personally performed a history,physical exam and medical decision making. Shanique STORY OCN documented in this encounter[facility] Instructions* Patient Instructions* Shanique Jacinto APRN.CNP - 11/05/2021 11:05 AM EST Images from the original note were not included. Breast Self-Exam What is a breast self-exam? A breast self-exam is a technique that a woman can use to examine her breasts to look for changes (such lumps or thickenings) that may signal breast cancer. When a woman detects breast cancer in its early stages, she greatly improves her chances for surviving the disease. Most breast lumps (80 percent) are not cancerous, but you can help ensure your breast health by regularly performing a breast self-exam. When should I perform a breast self-exam? You should perform a breast self-exam once a month, three to five days after your menstrual period ends. If you have stopped menstruating, perform the exam on the same day of each month, such as the first day of the month or a day easy for you to remember, like your date. The exam will take several minutes to perform. With each exam, you will become familiar with the contours and feel of your breasts and will be more alert to changes. 1. The first part of the exam is the inspection, or looking at your breasts. Stand undressed from waist up in front of a large mirror in a well-lit room. Look at your breasts. Don't be alarmed if they do not look equal in size or shape. Most women's breasts are not. With your arms relaxed by your sides, look for any changes in your breasts' size, shape, texture, or skin. Look for any sores as well as any puckering, dimpling, or discoloration of the skin. Inspect your nipples and look for any sores, peeling, or change in the direction of the nipples. 2. Next, place your hands on your hips and press down firmly to tighten the chest muscles beneath your breasts. Turn from side to side so you can inspect the outer part of your breasts. 3. Bend forward toward the mirror. Roll your shoulders and elbows forward to tighten your chest muscles. Your breasts will fall forward. Look for any changes in the shape or contour of your breasts. 4. Now, clasp your hands behind your head and press your hands forward. Again, turn from side to side to inspect your breasts' outer portions. Remember to inspect the border underneath your breasts. You may need to lift your breasts with your hand to see this area. 5. Check your nipples for discharge (fluid). Place your thumb and forefinger on the tissue surrounding the nipple, and pull outward toward the end of the nipple. Look for any discharge. Repeat on your other breast. In the shower 6. The second part of the exam is palpation, or feeling for changes. Use the finger pads of your three middle fingers on each hand to feel for lumps. It is helpful to have your hands slippery with soap and water. Check for any lumps or thickening in your underarm area. Place your left hand on your hip and reach with your right hand to feel in the left armpit. Repeat on the other side. 7. Check both sides for lumps or thickenings below your collarbone. 8. With soapy hands, support the breast with one hand while using the other hand to feel the tissue. Use the flat part of your fingers to press gently into the breast. Follow an up-and-down pattern along the breast, moving from bra line to collarbone. Continue the pattern until you have covered theentire breast. Repeat on the other side. Lying down 9. Next, lie down and place a small pillow or folded towel under your right shoulder. Put your right hand behind your head. Place your left hand on the upper portion of your right breast with fingerstogether and flat. Body lotion may help to make palpation easier. 10. Think of your breast as a face on a clock. Start at 12 o'clock and move toward 1 o'clock in small circular motions. Continue around the entire [place] until you reach 12 o'clock again. Keep your fingers flat and in constant contact with your breast. When the [place] is complete, move in one inch toward the nipple and complete another [place] around the clock. Continue in this pattern until your entire breast has been palpated. Make sure to palpate the upper outer areas that extend into your armpit. 11. Place your fingers flat and directly on top of your nipple. Feel beneath the nipple for any changes. Gently press your nipple inward. It should move easily. Repeat steps 9, 10, and 11 on your other breast. What should I do if I find a lump? See your physician if you discover any new breast changes, changes that persist after your menstrual cycle, or changes that concern you. Conditions that should be checked by a physician include: An area that is distinctly different from any other area on either breast A lump or thickening in or near the breast or in the underarm that persists through the menstrual cycle A change in the size, shape, or contour of the breast A mass or lump, which may feel as small as a pea A marble-like area under the skin A change in the feel or appearance of the skin on the breast or nipple (dimpled, puckered, scaly, or inflamed [red, warm, or swollen]) Bloody or clear fluid discharge from the nipples Redness of the skin on the breast or nipple References [employer]. Breast Cancer Accessed 09/13/2013. Angeles Lewis, Noe M, Akshat H. Breast disorders and breast cancer screening. In: Madai DEL CID, ed. [facility]: Current Clinical Medicine 2010. 2nd ed. [place], [place]: Anna Marie Elseivonne; 2010:section 15. Copyright 3353-5585 The [facility]. All rights reserved This information is provided by the [facility] and is not intended to replace the medical advice of your doctor or health care provider. Please consult your health care provider for advice about a specific medical condition. For additional health information, please contact the Center for Consumer Health Information at the [facility] or toll-free extension [phone]. If you prefer, you may visit [email or web address] documented in this encounterThe [facility]01-24-2022 Nurse Note* Marjan Aleman LPN - 11/05/2021 10:27 AM EST Patient presents for Survivorship consultation. Patient states no concerns with her self exam Marjan Aleman LPN documented in this encounterThe [facility]02-10-2017 History of Past illness Narrative* Problem Noted Date Resolved Date Colon cancer screening 11/22/2016 7 documented as of this encounter (statuses as of 04/24/2022) [facility] History of Past illness Narrative* Problem Noted Date Resolved Date Colon cancer screening 11/22/2016 7 documented as of this encounter (statuses as of 07/23/2022) [facility] History of Past illness Narrative* Problem Noted Date Resolved Date Colon cancer screening 11/22/2016 7 documented as of this encounter (statuses as of 08/02/2022) [facility] History of Past illness Narrative* Problem Noted Date Resolved Date Colon cancer screening 11/22/2016 7 documented as of this encounter (statuses as of 08/02/2022) [facility] Future Appointments Appointment Date:07/27/2024 07:30:00 AM Scheduled Provider: Location:[facility] Appointment Type:PC Nurse Lab Future Scheduled Tests Laboratory* Thyroid Stimulating Hormone 07/22/24 * A1C Hemoglobin 07/22/24 * Complete Blood Count 07/22/24 * Lipid Profile 07/22/24 * Complete Metabolic Panel 07/22/24 [facility] Evaluation + Plan note Future Appointments Appointment Date:05/16/2025 09:00:00 AM Scheduled Provider:ZAINAB FOUNTAIN APRN-CAMILLA Location:[facility] Appointment Type:PC OV Diagnostic Tests Pending * Rheumatoid Factor 04/30/25 * JESSICA by IFA Screen 04/30/25 * Lyme Disease Serology w/Reflex 04/30/25 * Thyroid [place] Profile 04/30/25 [facility] Evaluation note* Diagnosis Inflammatory breast cancer, right (HCC)- Primary History of right mastectomy Acquired absence of breast and nipple Visit for screening mammogram Other screening mamm[facility]* Diagnosis Calculus of gallbladder with cholecystitis of other acuity without obstruction- Primary RUQ pain Abdominal pain, right upper quadrant Calculus of gallbladder with cholecystitis of other acuity without obstruction RUQ pain Abdominal pain, right upper quadrant [facility] this encounter [facility]* Diagnosis Encounter for gynecological examination (general) (routine) without abnormal findings- Primary Encounter for screening mammogram for breast cancer Calculus of gallbladder with cholecystitis of other acuity without obstruction RUQ pain Abdominal pain, right upper quadrant [facility] this [facility]* Diagnosis Aftercare- Primary Unspecified aftercare [facility]* Diagnosis Inflammatory breast cancer, right (HCC)- Primary History of right mastectomy Acquired absence of breast and nipple BRCA negative Screening for genetic disease carrier status Visit for screening mammogram Other screening mammogram [facility] this encounter [facility]* Diagnosis Encounter for screening mammogram for breast cancer documented in this encounter [facility] note* Diagnosis Obesity, Class III, BMI >= 40- Primary Morbid obesity HALIMA (obstructive sleep apnea) Obstructive sleep apnea (adult) (pediatric) documented in this encounter [facility]* Diagnosis Class 3 severe obesity with serious comorbidity in adult, unspecified BMI, unspecified obesity type (HCC)- Primary HALIMA (obstructive sleep apnea) Obstructive sleep apnea (adult) (pediatric) Dietary counseling and surveillance Dietary surveillance and counseling Type 2 diabetes mellitus with other specified complication, without long-term current use of insulin (HCC) BMI 40.0-44.9, adult (HCC) Body Mass Index 40.0-44.9, adult documented in this encounter [facility]* Diagnosis HALIMA (obstructive sleep apnea) Obstructive sleep apnea (adult) (pediatric) Dietary counseling and surveillance Dietary surveillance and counseling Type 2 diabetes mellitus with other specified complication, without long-term current use of insulin (HCC) BMI 40.0-44.9, adult (HCC) Body Mass Index 40.0-44.9, adult documented in this encounter [facility] note* Diagnosis Obesity, Class III, BMI >= 40- Primary Morbid obesity Type 2 diabetes mellitus with other specified complication, without long-term current use of insulin (HCC) HALIMA (obstructive sleep apnea) Obstructive sleep apnea (adult) (pediatric) Dietary counseling and surveillance Dietary surveillance and counseling BMI 40.0-44.9, adult ([facility]) Body Mass Index 40.0-44.9, adult documented in this encounter [facility] note* Diagnosis Type 2 diabetes mellitus with other specified complication, without long-term current use of insulin ([facility]) HALIMA (obstructive sleep apnea) Obstructive sleep apnea (adult) (pediatric) Dietary counseling and surveillance Dietary surveillance and counseling BMI 40.0-44.9, adult ([facility]) Body Mass Index 40.0-44.9, adult documented in this encounter [facility] note* Diagnosis Class 3 severe obesity with serious comorbidity in adult, unspecified BMI, unspecified obesity type ([facility])- Primary Dietary counseling and surveillance Dietary surveillance and counseling Type 2 diabetes mellitus with other specified complication, without long-term current use of insulin ([facility]) HALIMA (obstructive sleep apnea) Obstructive sleep apnea (adult) (pediatric) BMI 40.0-44.9, adult ([facility]) Body Mass Index 40.0-44.9, adult documented in this encounter [facility] note* Diagnosis Dietary counseling and surveillance Dietary surveillance and counseling Type 2 diabetes mellitus with other specified complication, without long-term current use of insulin ([facility]) HALIMA (obstructive sleep apnea) Obstructive sleep apnea (adult) (pediatric) BMI 40.0-44.9, adult ([facility]) Body Mass Index 40.0-44.9, adult documented in this encounter [facility] note* Diagnosis Type 2 diabetes mellitus with other specified complication, without long-term current use of insulin ([facility])- Primary Dietary counseling and surveillance Dietary surveillance and counseling BMI 38.0-38.9,adult Body Mass Index 38.0-38.9, adult documented in this encounter [facility] note* Diagnosis Type 2 diabetes mellitus with other specified complication, without long-term current use of insulin ([facility]) Dietary counseling and surveillance Dietary surveillance and counseling BMI 38.0-38.9,adult Body Mass Index 38.0-38.9, adult [facility]* Diagnosis HALIMA (obstructive sleep apnea)- Primary Obstructive sleep apnea (adult) (pediatric) documented in this encounter [facility] note* Diagnosis Type 2 diabetes mellitus with other specified complication, without long-term current use of insulin (HCC) Dietary counseling and surveillance Dietary surveillance and counseling BMI 38.0-38.9,adult Body Mass Index 38.0-38.9, adult [facility]* Diagnosis Type 2 diabetes mellitus with other specified complication, without long-term current use of insulin (HCC)- Primary Dietary counseling and surveillance Dietary surveillance and counseling BMI 40.0-44.9, adult ([facility]) Body Mass Index 40.0-44.9, adult [facility]* Diagnosis Class 3 severe obesity with serious comorbidity in adult, unspecified BMI, unspecified obesity type ([facility])- Primary BMI 40.0-44.9, adult ([facility]) Body Mass Index 40.0-44.9, adult Dietary counseling and surveillance Dietary surveillance and counseling Type 2 diabetes mellitus with other specified complication, without long-term current use of insulin (HCC) HALIMA (obstructive sleep apnea) Obstructive sleep apnea (adult) (pediatric) [facility]* Diagnosis BMI 40.0-44.9, adult ([facility]) Body Mass Index 40.0-44.9, adult Dietary counseling and surveillance Dietary surveillance and counseling Type 2 diabetes mellitus with other specified complication, without long-term current use of insulin (HCC) HALIMA (obstructive sleep apnea) Obstructive sleep apnea (adult) (pediatric) [facility]* Diagnosis BMI 40.0-44.9, adult ([facility]) Body Mass Index 40.0-44.9, adult Dietary counseling and surveillance Dietary surveillance and counseling Type 2 diabetes mellitus with other specified complication, without long-term current use of insulin (HCC) HALIMA (obstructive sleep apnea) Obstructive sleep apnea (adult) (pediatric) documented in this encounter [facility] note* Diagnosis HALIMA (obstructive sleep apnea)- Primary Obstructive sleep apnea (adult) (pediatric) [facility]* Diagnosis BMI 40.0-44.9, adult ([facility]) Body Mass Index 40.0-44.9, adult Dietary counseling and surveillance Dietary surveillance and counseling Type 2 diabetes mellitus with other specified complication, without long-term current use of insulin (HCC) HALIMA (obstructive sleep apnea) Obstructive sleep apnea (adult) (pediatric) documented in this encounter [facility] note* Diagnosis Class 3 severe obesity with serious comorbidity in adult, unspecified BMI, unspecified obesity type (HCC)- Primary Dietary counseling and surveillance Dietary surveillance and counseling BMI 40.0-44.9, adult (HCC) Body Mass Index 40.0-44.9, adult Type 2 diabetes mellitus with other specified complication, without long-term current use of insulin (HCC) HALIMA (obstructive sleep apnea) Obstructive sleep apnea (adult) (pediatric) documented in this encounter [facility] note* Diagnosis Inflammatory breast cancer, right (HCC)- Primary Inflammatory breast cancer, right (HCC)- Primary Breast screening Breast screening, unspecified Type 2 diabetes mellitus with other specified complication, without long-term current use of insulin (HCC)- Primary Dietary counseling and surveillance Dietary surveillance and counseling BMI 37.0-37.9, adult Body Mass Index 37.0-37.9, adult documented in this encounter [facility] note* Diagnosis Inflammatory breast cancer, right (HCC)- Primary Inflammatory breast cancer, right (HCC)- Primary Breast screening Breast screening, unspecified Type 2 diabetes mellitus with other specified complication, without long-term current use of insulin (HCC) Dietary counseling and surveillance Dietary surveillance and counseling BMI 37.0-37.9, adult Body Mass Index 37.0-37.9, adult documented in this encounter [facility] note* Diagnosis Inflammatory breast cancer, right (HCC)- Primary Inflammatory breast cancer, right (HCC)- Primary Breast screening Breast screening, unspecified Type 2 diabetes mellitus with other specified complication, without long-term current use of insulin (HCC) Dietary counseling and surveillance Dietary surveillance and counseling BMI 37.0-37.9, adult Body Mass Index 37.0-37.9, adult documented in this encounter [facility] note* Diagnosis Inflammatory breast cancer, right (HCC)- Primary Inflammatory breast cancer, right (HCC)- Primary Breast screening Breast screening, unspecified Type 2 diabetes mellitus with other specified complication, without long-term current use of insulin (HCC) Dietary counseling and surveillance Dietary surveillance and counseling BMI 37.0-37.9, adult Body Mass Index 37.0-37.9, adult [facility] Diagnosis Inflammatory breast cancer, right (HCC)- Primary Inflammatory breast cancer, right (HCC)- Primary Breast screening Breast screening, unspecified Class 3 severe obesity with serious comorbidity in adult, unspecified BMI, unspecified obesity type (HCC)- Primary Dietary counseling and surveillance Dietary surveillance and counseling BMI 40.0-44.9, adult (HCC) Body Mass Index 40.0-44.9, adult Inflammatory breast cancer, right (HCC) Type 2 diabetes mellitus with other specified complication, without long-term current use of insulin (HCC) HALIMA (obstructive sleep apnea) Obstructive sleep apnea (adult) (pediatric) [facility] Diagnosis Inflammatory breast cancer, right (HCC)- Primary Inflammatory breast cancer, right (HCC)- Primary Breast screening Breast screening, unspecified Screen for colon cancer- Primary Special screening for malignant neoplasms, colon Family history of colon cancer in father [facility]* Diagnosis Inflammatory breast cancer, right (HCC)- Primary Inflammatory breast cancer, right (HCC)- Primary Breast screening Breast screening, unspecified Visit for screening mammogram Other screening mammogram [facility]* Diagnosis Inflammatory breast cancer, right (HCC)- Primary Inflammatory breast cancer, right (HCC)- Primary Breast screening Breast screening, unspecified Type 2 diabetes mellitus with other specified complication, without long-term current use of insulin (HCC) Dietary counseling and surveillance Dietary surveillance and counseling BMI 37.0-37.9, adult Body Mass Index 37.0-37.9, adult [facility] Diagnosis Inflammatory breast cancer, right (HCC)- Primary Inflammatory breast cancer, right (HCC)- Primary Breast screening Breast screening, unspecified Encounter for screening colonoscopy- Primary Special screening for malignant neoplasms, colon Screen for colon cancer Special screening for malignant neoplasms, colon Family history of colon cancer in father [facility]* Diagnosis Inflammatory breast cancer, right (HCC)- Primary Inflammatory breast cancer, right (HCC)- Primary Breast screening Breast screening, unspecified Inflammatory breast cancer, right (HCC)- Primary History of right mastectomy Acquired absence of breast and nipple BRCA negative Screening for genetic disease carrier status Visit for screening mammogram Other screening mammogram [facility]* Diagnosis Inflammatory breast cancer, right (HCC)- Primary Inflammatory breast cancer, right (HCC)- Primary Breast screening Breast screening, unspecified Hyperplastic polyp of ascending colon- Primary documented in this encounter [facility] note* Diagnosis Inflammatory breast cancer, right (HCC)- Primary Inflammatory breast cancer, right (HCC)- Primary Breast screening Breast screening, unspecified Class 3 severe obesity with serious comorbidity in adult- Primary Inflammatory breast cancer, right (HCC) Type 2 diabetes mellitus with other specified complication, without long-term current use of insulin (HCC) HALIMA (obstructive sleep apnea) Obstructive sleep apnea (adult) (pediatric) Dietary counseling and surveillance Dietary surveillance and counseling BMI 37.0-37.9, adult Body Mass Index 37.0-37.9, adult Abnormal craving Pica documented in this encounter [facility] note* Diagnosis Inflammatory breast cancer, right (HCC)- Primary Inflammatory breast cancer, right (HCC)- Primary Breast screening Breast screening, unspecified Class 3 severe obesity with serious comorbidity in adult (HCC) Inflammatory breast cancer, right (HCC) Type 2 diabetes mellitus with other specified complication, without long-term current use of insulin (HCC) HALIMA (obstructive sleep apnea) Obstructive sleep apnea (adult) (pediatric) Dietary counseling and surveillance Dietary surveillance and counseling BMI 37.0-37.9, adult Body Mass Index 37.0-37.9, adult documented in this encounter [facility] course Narrative No data available for this section [facility] Discharge instructions No data available for this section [facility] note No data available for this section [facility] Reason for referral (narrative)* Diagnostic Procedure Only (Routine) - Pending Review Specialty Diagnoses / Procedures Referred By Lindsey t Referred To Contact [facility] Diagnoses Visit for screening mammogram Procedures CAMELIA SCREENING W CHANCE SCREENING DIGITAL BREAST TOMOSYNTHESIS BI SCREENING MAMMOGRAPHY BI 2-VIEW BREAST INC Shanique Hernandez, SYDNEE.MANAGER BUSINESS [employer]ANNING [address] [place] [address] Br Imaging [facility] [address] Referral ID Status Reason Start Date Expiration Date Visits Requested Visits Authorized [id number] Pending Review Auto-Generat ed Referral 11/06/2022 12/05/2022 1 1 [facility] for referral (narrative)* Diagnostic Procedure Only (Routine) - Pending Review Specialty Diagnoses / Procedures Referred By Contac t Referred To Contact [facility] Diagnoses Encounter for screening mammogram for breast cancer Procedures CAMELIA SCREENING W CHANCE SCREENING DIGITAL BREAST TOMOSYNTHESIS BI SCREENING MAMMOGRAPHY BI 2-VIEW BREAST INC Shanique Mendes APRN.MANAGER BUSINESS [employer]ING [address] [place] [address] [facility] [address] [place] [address] Referral ID Status Reason Start Date Expiration Date Visits Requested Visits Authorized [id number] Pending Review Auto-Generat ed Referral 09/01/2023 1 1 [facility] for referral (narrative)* Diagnostic Procedure Only (Routine) - Authorized Specialty Diagnoses / Procedures Referred By Lindsey t Referred To Contact [facility] Diagnoses Visit for screening mammogram Procedures CAMELIA SCREENING W CHANCE SCREENING DIGITAL BREAST TOMOSYNTHESIS BI SCREENING MAMMOGRAPHY BI 2-VIEW BREAST INC CAD Shanique Jacinto APRN.MANAGER BUSINESS [employer]ANNING [address] [place] [address] [facility] [address] [place] [address] Referral ID Status Reason Start Date Expiration Date Visits Requested Visits Authorized [id number] Authorized Auto-Generat ed Referral 11/07/2023 12/06/2023 1 1 [facility] for referral (narrative)* Diagnostic Procedure Only (Routine) - Closed Specialty Diagnoses / Procedures Referred By Contac t Referred To Contact [facility] Diagnoses Encounter for screening mammogram for breast cancer Procedures CAMELIA SCREENING W CHANCE SCREENING DIGITAL BREAST TOMOSYNTHESIS BI SCREENING MAMMOGRAPHY BI 2-VIEW BREAST INC CAD Shea, Shanique, INTELLIGENCE OPERATIONS.MANAGER BUSINESS [employer]ANNING [address] [place] [address] [facility] [address] [place] [address] Referral ID Status Reason Start Date Expiration Date V isits Requested Visits Authorized [id number] Closed Auto-Generate d Referral 08/02/2022 09/01/2023 1 1 [facility] for referral (narrative)* Outpatient Procedure (Routine) - Authorized Specialty Diagnoses / Procedures Referred By Lindsey crockett Referred To Contact [facility] Diagnoses Screen for colon cancer Family history of colon cancer in father Procedures COLONOSCOPY SCREENING COLONOSCOPY FLX DX W/COLLJ SPEC WHEN Ludy Barrow APRN.MANAGER BUSINESS PLANNING [address] [place] [address] [facility] [address] [place] [id number] Referral ID Status Reason Start Date Expiration Date Visits Requested Visits Authorized [id number] Authorized Auto-Generat ed Referral 11/08/2024 11/08/2025 1 1 [facility] for referral (narrative)* Diagnostic Procedure Only (Routine) - Closed Specialty Diagnoses / Procedures Referred By Lindsey crockett Referred To Contact [facility] Diagnoses Visit for screening mammogram Procedures CAMELIA SCREENING W CHANCE SCREENING DIGITAL BREAST TOMOSYNTHESIS BI SCREENING MAMMOGRAPHY BI 2-VIEW BREAST INC Shanique Hernandez APRN.MANAGER BUSINESS [employer]ANNING [address] [place] [address] [facility] [address] [place] [address] Referral ID Status Reason Start Date Expiration Date V isits Requested Visits Authorized [id number] Closed Auto-Generate d Referral 11/08/2024 12/06/2024 1 1 [facility] for visit Narrative* Diagnostic Procedure Only (Routine) - Closed Specialty Diagnoses / Procedures Referred By Lindsey t Referred To Contact [facility] Diagnoses Encounter for screening mammogram for breast cancer Procedures CAMELIA SCREENING W CHANCE SCREENING DIGITAL BREAST TOMOSYNTHESIS BI SCREENING MAMMOGRAPHY BI 2-VIEW BREAST INC CAD Shanique Shea INTELLIGENCE OPERATIONS.MANAGER BUSINESS PLANNING [address] [place] [address] [facility] [address] [place] [address] Referral ID Status Reason Start Date Expiration Date V isits Requested Visits Authorized [id number] Closed Auto-Generate d Referral 08/02/2022 09/01/2023 1 1 [facility] for visit Narrative* Diagnostic Procedure Only (Routine) - Closed Specialty Diagnoses / Procedures Referred By Lindsey t Referred To Contact [facility] Diagnoses Visit for screening mammogram Procedures CAMELIA SCREENING W CHANCE SCREENING DIGITAL BREAST TOMOSYNTHESIS BI SCREENING MAMMOGRAPHY BI 2-VIEW BREAST INC CAD Shanique Jacinto, INTELLIGENCE OPERATIONS.MANAGER BUSINESS PLANNING [address] [place] [address] [facility] [address] [place] [address] Referral ID Status Reason Start Date Expiration Date V isits Requested Visits Authorized [id number] Closed Auto-Generate d Referral 11/08/2024 12/06/2024 1 1 [facility] for visit Narrative* Outpatient Procedure (Routine) - Closed Specialty Diagnoses / Procedures Referred By Lidnsey crockett Referred To Contact [facility] Diagnoses Screen for colon cancer Family history of colon cancer in father Procedures COLONOSCOPY SCREENING COLONOSCOPY FLX DX W/COLLJ SPEC WHEN PFLudy Hidalgo, INTELLIGENCE OPERATIONS.MANAGER BUSINESS PLANNING [address] [place] [address] Phone: tel: fax: [facility] [address] [place] [address] Referral ID Status Reason Start Date Expiration Date V isits Requested Visits Authorized [id number] Closed Auto-Generate d Referral 11/08/2024 11/08/2025 1 1 [facility] Summary Purpose Family History No Family History Records FoundNo Family History Records FoundNo Family History Records FoundNo Family History Records Found No data available for this section No data available for this section No Family History Records FoundNo Family History Records FoundNo Family History Records Found No data available for this section No Family History Records Found Advance Directives Documents on File 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 Advance Directive(s) 12/13/2019 1:17 PM Advance Directive(s) 11/27/2019 1:19 PM Advance Directive(s) 11/22/2016 11:47 AM Advance Directive(s) 11/20/2016 8:25 AM Reason for Referral Specialty Diagnoses / Procedures Referred By Contac t Referred To Contact Diagnoses Dietary counseling and surveillance Type 2 diabetes mellitus with other specified complication, without long-term current use of insulin (HCC) HALIMA (obstructive sleep apnea) BMI 40.0-44.9, adult (HCC) Lenore Morelos, INTELLIGENCE OPERATIONS.MANAGER BUSINESS PLANNING [address] [place] [address] Referral ID Status Reason Start Date Expiration Date Visits Re quested Visits Authorized [id number] Closed 1 1 Specialty Diagnoses / Procedures Referred By Lindsey t Referred To Contact Diagnoses BMI 40.0-44.9, adult (HCC) Dietary counseling and surveillance Type 2 diabetes mellitus with other specified complication, without long-term current use of insulin (HCC) HALIMA (obstructive sleep apnea) Lenore Morelos, INTELLIGENCE OPERATIONS.MANAGER BUSINESS PLANNING [address] [place] [address] Referral ID Status Reason Start Date Expiration Date Visits Re quested Visits Authorized [id number] Closed 1 1 Referral ID Status Reason Start Date Expiration Date Visits Re quested Visits Authorized [id number] Closed 1 1 Additional Source Comments INFORMATION SOURCE (unrecogn ized section and content) DATE CREATED AUTHOR 11/08/2020 [facility] DATE CREATED AUTHOR AUTHOR'S ORGANIZ ATION 09/01/2022 [facility] DATE CREATED AUTHOR AUTHOR'S ORGANIZ ATION 07/22/2023 [facility] ([place] DATE CREATED AUTHOR AUTHOR'S ORGANIZ ATION 10/11/2023 [facility] DATE CREATED AUTHOR AUTHOR'S ORGANIZ ATION 09/12/2024 [facility] DATE CREATED AUTHOR AUTHOR'S ORGANIZ ATION 12/23/[address] [facility] DATE CREATED AUTHOR AUTHOR'S ORGANIZ ATION 02/17/2025 [facility] DATE CREATED AUTHOR AUTHOR'S ORGANIZ ATION 05/05/2025 [facility] Source Comments (unrecognize d section and content) In the event this informatio n is protected by the Federal Confidentiality of Alcohol and Drug Abuse Patient Records regulations: The Federal rules restrict any use of the information to criminally investigate or prosecute any alcohol or drug abuse patient.[facility] the event this information is protected by the Federal Confidentiality of Alcohol and Drug Abuse Patient Records regulations: The Federal rules restrict any use of the information to criminally investigate or prosecute any alcohol or drug abuse patient.[facility] the event this information is protected by the Federal Confidentiality of Alcohol and Drug Abuse Patient Records regulations: The Federal rules restrict any use of the information to criminally investigate or prosecute any alcohol or drug abuse patient.[facility] the event this information is protected by the Federal Confidentiality of Alcohol and Drug Abuse Patient Records regulations: The Federal rules restrict any use of the information to criminally investigate or prosecute any alcohol or drug abuse patient.[facility] the event this information is protected by the Federal Confidentiality of Alcohol and Drug Abuse Patient Records regulations: The Federal rules restrict any use of the information to criminally investigate or prosecute any alcohol or drug abuse patient.[facility] the event this information is protected by the Federal Confidentiality of Alcohol and Drug Abuse Patient Records regulations: The Federal rules restrict any use of the information to criminally investigate or prosecute any alcohol or drug abuse patient.[facility] the event this information is protected by the Federal Confidentiality of Alcohol and Drug Abuse Patient Records regulations: The Federal rules restrict any use of the information to criminally investigate or prosecute any alcohol or drug abuse patient.[facility] the event this information is protected by the Federal Confidentiality of Alcohol and Drug Abuse Patient Records regulations: The Federal rules restrict any use of the information to criminally investigate or prosecute any alcohol or drug abuse patient.[facility] the event this information is protected by the Federal Confidentiality of Alcohol and Drug Abuse Patient Records regulations: The Federal rules restrict any use of the information to criminally investigate or prosecute any alcohol or drug abuse patient.[facility] the event this information is protected by the Federal Confidentiality of Alcohol and Drug Abuse Patient Records regulations: The Federal rules restrict any use of the information to criminally investigate or prosecute any alcohol or drug abuse patient.[facility] the event this information is protected by the Federal Confidentiality of Alcohol and Drug Abuse Patient Records regulations: The Federal rules restrict any use of the information to criminally investigate or prosecute any alcohol or drug abuse patient.[facility] the event this information is protected by the Federal Confidentiality of Alcohol and Drug Abuse Patient Records regulations: The Federal rules restrict any use of the information to criminally investigate or prosecute any alcohol or drug abuse patient.[facility] the event this information is protected by the Federal Confidentiality of Alcohol and Drug Abuse Patient Records regulations: The Federal rules restrict any use of the information to criminally investigate or prosecute any alcohol or drug abuse patient.[facility] the event this information is protected by the Federal Confidentiality of Alcohol and Drug Abuse Patient Records regulations: The Federal rules restrict any use of the information to criminally investigate or prosecute any alcohol or drug abuse patient.[facility] the event this information is protected by the Federal Confidentiality of Alcohol and Drug Abuse Patient Records regulations: The Federal rules restrict any use of the information to criminally investigate or prosecute any alcohol or drug abuse patient.[facility] the event this information is protected by the Federal Confidentiality of Alcohol and Drug Abuse Patient Records regulations: The Federal rules restrict any use of the information to criminally investigate or prosecute any alcohol or drug abuse patient.[facility] the event this information is protected by the Federal Confidentiality of Alcohol and Drug Abuse Patient Records regulations: The Federal rules restrict any use of the information to criminally investigate or prosecute any alcohol or drug abuse patient.[facility] the event this information is protected by the Federal Confidentiality of Alcohol and Drug Abuse Patient Records regulations: The Federal rules restrict any use of the information to criminally investigate or prosecute any alcohol or drug abuse patient.[facility] the event this information is protected by the Federal Confidentiality of Alcohol and Drug Abuse Patient Records regulations: The Federal rules restrict any use of the information to criminally investigate or prosecute any alcohol or drug abuse patient.[facility] the event this information is protected by the Federal Confidentiality of Alcohol and Drug Abuse Patient Records regulations: The Federal rules restrict any use of the information to criminally investigate or prosecute any alcohol or drug abuse patient.[facility] the event this information is protected by the Federal Confidentiality of Alcohol and Drug Abuse Patient Records regulations: The Federal rules restrict any use of the information to criminally investigate or prosecute any alcohol or drug abuse patient.[facility] the event this information is protected by the Federal Confidentiality of Alcohol and Drug Abuse Patient Records regulations: The Federal rules restrict any use of the information to criminally investigate or prosecute any alcohol or drug abuse patient.[facility] the event this information is protected by the Federal Confidentiality of Alcohol and Drug Abuse Patient Records regulations: The Federal rules restrict any use of the information to criminally investigate or prosecute any alcohol or drug abuse patient.[facility] the event this information is protected by the Federal Confidentiality of Alcohol and Drug Abuse Patient Records regulations: The Federal rules restrict any use of the information to criminally investigate or prosecute any alcohol or drug abuse patient.[facility] the event this information is protected by the Federal Confidentiality of Alcohol and Drug Abuse Patient Records regulations: The Federal rules restrict any use of the information to criminally investigate or prosecute any alcohol or drug abuse patient.[facility] the event this information is protected by the Federal Confidentiality of Alcohol and Drug Abuse Patient Records regulations: The Federal rules restrict any use of the information to criminally investigate or prosecute any alcohol or drug abuse patient.[facility] the event this information is protected by the Federal Confidentiality of Alcohol and Drug Abuse Patient Records regulations: The Federal rules restrict any use of the information to criminally investigate or prosecute any alcohol or drug abuse patient.[facility] the event this information is protected by the Federal Confidentiality of Alcohol and Drug Abuse Patient Records regulations: The Federal rules restrict any use of the information to criminally investigate or prosecute any alcohol or drug abuse patient.[facility] the event this information is protected by the Federal Confidentiality of Alcohol and Drug Abuse Patient Records regulations: The Federal rules restrict any use of the information to criminally investigate or prosecute any alcohol or drug abuse patient.[facility] the event this information is protected by the Federal Confidentiality of Alcohol and Drug Abuse Patient Records regulations: The Federal rules restrict any use of the information to criminally investigate or prosecute any alcohol or drug abuse patient.[facility] the event this information is protected by the Federal Confidentiality of Alcohol and Drug Abuse Patient Records regulations: The Federal rules restrict any use of the information to criminally investigate or prosecute any alcohol or drug abuse patient.[facility] the event this information is protected by the Federal Confidentiality of Alcohol and Drug Abuse Patient Records regulations: The Federal rules restrict any use of the information to criminally investigate or prosecute any alcohol or drug abuse patient.[facility] the event this information is protected by the Federal Confidentiality of Alcohol and Drug Abuse Patient Records regulations: The Federal rules restrict any use of the information to criminally investigate or prosecute any alcohol or drug abuse patient.[facility] At SouthwoodsIn the event this information is protected by the Federal Confidentiality of Alcohol and Drug Abuse Patient Records regulations: The Federal rules restrict any use of the information to criminally investigate or prosecute any alcohol or drug abuse patient.[facility]woodsIn the event this information is protected by the Federal Confidentiality of Alcohol and Drug Abuse Patient Records regulations: The Federal rules restrict any use of the information to criminally investigate or prosecute any alcohol or drug abuse patient.[facility]woodsIn the event this information is protected by the Federal Confidentiality of Alcohol and Drug Abuse Patient Records regulations: The Federal rules restrict any use of the information to criminally investigate or prosecute any alcohol or drug abuse patient.[facility]woodsIn the event this information is protected by the Federal Confidentiality of Alcohol and Drug Abuse Patient Records regulations: The Federal rules restrict any use of the information to criminally investigate or prosecute any alcohol or drug abuse patient.[facility]woodsIn the event this information is protected by the Federal Confidentiality of Alcohol and Drug Abuse Patient Records regulations: The Federal rules restrict any use of the information to criminally investigate or prosecute any alcohol or drug abuse patient.[facility]woodsIn the event this information is protected by the Federal Confidentiality of Alcohol and Drug Abuse Patient Records regulations: The Federal rules restrict any use of the information to criminally investigate or prosecute any alcohol or drug abuse patient.[facility]woodsIn the event this information is protected by the Federal Confidentiality of Alcohol and Drug Abuse Patient Records regulations: The Federal rules restrict any use of the information to criminally investigate or prosecute any alcohol or drug abuse patient.[facility]woodsIn the event this information is protected by the Federal Confidentiality of Alcohol and Drug Abuse Patient Records regulations: The Federal rules restrict any use of the information to criminally investigate or prosecute any alcohol or drug abuse patient.[facility]woodsIn the event this information is protected by the Federal Confidentiality of Alcohol and Drug Abuse Patient Records regulations: The Federal rules restrict any use of the information to criminally investigate or prosecute any alcohol or drug abuse patient.[facility]woodsIn the event this information is protected by the Federal Confidentiality of Alcohol and Drug Abuse Patient Records regulations: The Federal rules restrict any use of the information to criminally investigate or prosecute any alcohol or drug abuse patient.[facility]woodsIn the event this information is protected by the Federal Confidentiality of Alcohol and Drug Abuse Patient Records regulations: The Federal rules restrict any use of the information to criminally investigate or prosecute any alcohol or drug abuse patient.[facility]woodsIn the event this information is protected by the Federal Confidentiality of Alcohol and Drug Abuse Patient Records regulations: The Federal rules restrict any use of the information to criminally investigate or prosecute any alcohol or drug abuse patient.[facility]woodsIn the event this information is protected by the Federal Confidentiality of Alcohol and Drug Abuse Patient Records regulations: The Federal rules restrict any use of the information to criminally investigate or prosecute any alcohol or drug abuse patient.[facility]woodsIn the event this information is protected by the Federal Confidentiality of Alcohol and Drug Abuse Patient Records regulations: The Federal rules restrict any use of the information to criminally investigate or prosecute any alcohol or drug abuse patient.[facility]woodsIn the event this information is protected by the Federal Confidentiality of Alcohol and Drug Abuse Patient Records regulations: The Federal rules restrict any use of the information to criminally investigate or prosecute any alcohol or drug abuse patient.[facility]woodsIn the event this information is protected by the Federal Confidentiality of Alcohol and Drug Abuse Patient Records regulations: The Federal rules restrict any use of the information to criminally investigate or prosecute any alcohol or drug abuse patient.[facility]woodsIn the event this information is protected by the Federal Confidentiality of Alcohol and Drug Abuse Patient Records regulations: The Federal rules restrict any use of the information to criminally investigate or prosecute any alcohol or drug abuse patient.[facility]woodsIn the event this information is protected by the Federal Confidentiality of Alcohol and Drug Abuse Patient Records regulations: The Federal rules restrict any use of the information to criminally investigate or prosecute any alcohol or drug abuse patient.[facility]woodsIn the event this information is protected by the Federal Confidentiality of Alcohol and Drug Abuse Patient Records regulations: The Federal rules restrict any use of the information to criminally investigate or prosecute any alcohol or drug abuse patient.[facility]woodsIn the event this information is protected by the Federal Confidentiality of Alcohol and Drug Abuse Patient Records regulations: The Federal rules restrict any use of the information to criminally investigate or prosecute any alcohol or drug abuse patient.[facility]woodsIn the event this information is protected by the Federal Confidentiality of Alcohol and Drug Abuse Patient Records regulations: The Federal rules restrict any use of the information to criminally investigate or prosecute any alcohol or drug abuse patient.[facility]woodsIn the event this information is protected by the Federal Confidentiality of Alcohol and Drug Abuse Patient Records regulations: The Federal rules restrict any use of the information to criminally investigate or prosecute any alcohol or drug abuse patient.[facility]woodsIn the event this information is protected by the Federal Confidentiality of Alcohol and Drug Abuse Patient Records regulations: The Federal rules restrict any use of the information to criminally investigate or prosecute any alcohol or drug abuse patient.[facility] Reason for Visit (unrecogniz ed section and content) Reason Comments Cancer Survivorship consultation Reason Comments External Referrals/resources Fax PCP ref call into the program, LVM Reason Comments Consult RUQ pain, Ultra soun d done gallstones Reason Comments Well Woman Reason Comments Follow Up Lap dolores Reason Comments Yearly Exam Reason Comments Appointment Reason Comments Medication Request Ozempic needles Reason Comments Sleep Apnea Reason Comments Follow Up Reason Onset Date Comments Refill Request 07/28/2023 Reason Comments Established Patient Reason Comments Refill Request Reason Comments Refill Request Reason Comments FYI-No Action Needed Reason Comments Weight Problem Reason Comments Cancer Surveillance Colonoscopy consulta tion Reason Comments Yearly Exam CBE Results Reason Comments Established Patient Weight Problem Care Teams (unrecognized sec tion and content) Incident Response Specialist Relationship Specialty Start Date End Date Zainab Fountain (Stagecraft Professor) [address] [place] [address] PCP - General Internal Medicine 08/03/15 Maximiliano Alcocer MD, [address] [place] [address] Physician Radiation Oncology 02/16/[address] [place] [address] Physician Orthopedics 01/19/18 Incident Response Specialist Relationship Specialty Start Date End Date Zainab Fountain (Stagecraft Professor) [address] [place] [address] PCP - General Internal Medicine 08/03/15 Maximiliano Alcocer MD, [address] [place] [address] Physician Radiation Oncology 02/16/16 Yoni Hale DPM Physician Orthopedics 01/19/18 Incident Response Specialist Relationship Specialty Start Date End Date Zainab Fountain (Stagecraft Professor) [address] [place] [address] PCP - General Internal Medicine 08/03/15 Maximiliano Alcocer MD, [address] [facility] [place] [address] Physician Radiation Oncology 02/16/16 Yoni Hale DPM Physician Orthopedics 01/19/18 Incident Response Specialist Relationship Specialty Start Date End Date Zainab Fountain (Stagecraft Professor) [address] [place] [address] PCP - General Internal Medicine 08/03/15 Maximiliano Alcocer MD, [address] [place] [address] Physician Radiation Oncology 02/16/16 Yoni Hale DPM Physician Orthopedics 01/19/18 Incident Response Specialist Relationship Specialty Start Date End Date Zainab Fountain (Stagecraft Professor) [address] [place] [address] PCP - General Internal Medicine 08/03/15 Maximiliano Alcocer MD, [address] [place] [address] Physician Radiation Oncology 02/16/16 Yoni Hale DPM [address] [place] [address] Physician Orthopedics 01/19/18 Incident Response Specialist Relationship Specialty Start Date End Date Zainab Fountain (Stagecraft Professor) [address] [place] [address] PCP - General Internal Medicine 08/03/15 Maximiliano Alcocer MD, [address] [place] [address] Physician Radiation Oncology 02/16/16 Yoni Hale DPM [address] [place] [address] Physician Orthopedics 01/19/18 Incident Response Specialist Relationship Specialty Start Date End Date Zainab Fountain (Stagecraft Professor) [address] [place] [address] PCP - General Internal Medicine 08/03/15 Maximiliano Alcocer MD, [address] [place] [address] Physician Radiation Oncology 02/16/16 Yoni Hale DPM [address] [place] [address] Physician Orthopedics 01/19/18 Incident Response Specialist Relationship Specialty Start Date End Date Zainab Fountain (Stagecraft Professor) [address] [place] [address] PCP - General Internal Medicine 08/03/15 Maximiliano Alcocer MD, [address] [place] [address] Physician Radiation Oncology 02/16/16 Yoni Hale DPM [address] [place] [address] Physician Orthopedics 01/19/18 Incident Response Specialist Relationship Specialty Start Date End Date Zainab Fountain (Stagecraft Professor) [address] [place] [address] PCP - General Internal Medicine 08/03/15 Maximiliano Alcocer MD, [address] [place] [address] Physician Radiation Oncology 02/16/16 Yoni Hale DPM [address] [place] [address] Physician Orthopedics 01/19/18 Incident Response Specialist Relationship Specialty Start Date End Date Zainab Fountain (Stagecraft Professor) [address] [place] [address] PCP - General Internal Medicine 08/03/15 Maximiliano Alcocer MD, [address] [place] [address] Physician Radiation Oncology 02/16/16 Yoni Hale DPM [address] [place] [address] Physician Orthopedics 01/19/18 Incident Response Specialist Relationship Specialty Start Date End Date Zainab Fountain (Stagecraft Professor) [address] [facility] [place] [address] PCP - General Internal Medicine 08/03/15 Maximiliano Alcocer MD, [address] [place] [address] Physician Radiation Oncology 02/16/16 Yoni Hale DPM [address] [place] [address] Physician Orthopedics 01/19/18 Incident Response Specialist Relationship Specialty Start Date End Date Zainab Fountain (Stagecraft Professor) [address] [facility] [place] [address] PCP - General Internal Medicine 08/03/15 Maximiliano Alcocer MD, [address] [place] [address] Physician Radiation Oncology 02/16/16 Yoni Hale DPM [address] [place] [address] Physician Orthopedics 01/19/18 Incident Response Specialist Relationship Specialty Start Date End Date Zainab Fountain (Stagecraft Professor) [address] [facility] [place] [address] PCP - General Internal Medicine 08/03/15 Maximiliano Alcocer MDMD [address] [place] [address] Physician Radiation Oncology 02/16/16 Yoni Hale DPM [address] [place] [address] Physician Orthopedics 01/19/18 Incident Response Specialist Relationship Specialty Start Date End Date Zainab Fountain (Stagecraft Professor) [address] [place] [address] PCP - General Internal Medicine 08/03/15 Maximiliano Alcocer MD, [address] [place] [address] Physician Radiation Oncology 02/16/16 Yoni Hale DPM [address] [place] [address] Physician Orthopedics 01/19/18 Incident Response Specialist Relationship Specialty Start Date End Date Zainab Fountain (Stagecraft Professor) [address] [place] [address] PCP - General Internal Medicine 08/03/15 Maximiliano Alcocer MD, [address] [place] [address] Physician Radiation Oncology 02/16/16 Yoni Hale DPM [address] [place] [address] Physician Orthopedics 01/19/18 Incident Response Specialist Relationship Specialty Start Date End Date Zainab Fountain (Dylan) [address] [place] [address] PCP - General Internal Medicine 08/03/15 Maximiliano Alcocer MD, [address] [place] [address] Physician Radiation Oncology 02/16/16 Yoni Hale DPM [address] [place] [address] Physician Orthopedics 01/19/18 Incident Response Specialist Relationship Specialty Start Date End Date Zainab Fountain (Stagecraft Professor) [address] [place] [address] PCP - General Internal Medicine 08/03/15 Maximiliano Alcocer MD [address] [place] [address] Physician Radiation Oncology 02/16/16 Yoni Hale DPM [address] [place] [address] Physician Orthopedics 01/19/18 Incident Response Specialist Relationship Specialty Start Date End Date Zainab Fountain (Stagecraft Professor) [address] [place] [address] PCP - General Internal Medicine 08/03/15 Maximiliano Alcocer MD [address] [place] [address] Physician Radiation Oncology 02/16/16 Yoni Hale DPM [address] [place] [address] Physician Orthopedics 01/19/18 Incident Response Specialist Relationship Specialty Start Date End Date Zainab Fountain (Stagecraft Professor) [address] [place] [address] PCP - General Internal Medicine 08/03/15 Maximiliano Alcocer MD [address] [place] [address] Physician Radiation Oncology 02/16/16 Yoni Hale DPM [address] [place] [address] Physician Orthopedics 01/19/18 Incident Response Specialist Relationship Specialty Start Date End Date Zainab Fountain (Stagecraft Professor) [address] [place] [address] PCP - General Internal Medicine 08/03/15 Maximiliano Alcocer MD [address] [place] [address] Physician Radiation Oncology 02/16/16 Yoni Hale DPM [address] [place] [address] Physician Orthopedics 01/19/18 Incident Response Specialist Relationship Specialty Start Date End Date Zainab Fountain (Stagecraft Professor) [address] [place] [address] PCP - General Internal Medicine 08/03/15 Maximiliano Alcocer MD [address] [address] Physician Radiation Oncology 02/16/16 Yoni Hale DPM [address] [place] [address] Physician Orthopedics 01/19/18 Incident Response Specialist Relationship Specialty Start Date End Date Zainab Fountain (Stagecraft Professor) [address] [place] [address] PCP - General Internal Medicine 08/03/15 Maximiliano Alcocer MD [address] [address] Physician Radiation Oncology 02/16/16 Yoni Hale DPM [address] [place] [address] Physician Orthopedics 01/19/18 Incident Response Specialist Relationship Specialty Start Date End Date Zainab Fountain (Stagecraft Professor) [address] [place] [address] PCP - General Internal Medicine 08/03/15 Maximiliano Alcocer MD [address] [place] [address] Physician Radiation Oncology 02/16/16 Yoni Hale DPM [address] [place] [address] Physician Orthopedics 01/19/18 Incident Response Specialist Relationship Specialty Start Date End Date Zainab Fountain (Stagecraft Professor) [address] [place] [address] PCP - General Internal Medicine 08/03/15 Maximiliano Alcocer MD [address] [place] [address] Physician Radiation Oncology 02/16/16 Yoni Hale DPM [address] [place] [address] Physician Orthopedics 01/19/18 Incident Response Specialist Relationship Specialty Start Date End Date Zainab Fountain (Stagecraft Professor) [address] [place] [address] PCP - General Internal Medicine 08/03/15 Maximiliano Alcocer MD [address] [place] [address] Physician Radiation Oncology 02/16/16 Yoni Hale DPM [address] [place] [address] Physician Orthopedics 01/19/18 Incident Response Specialist Relationship Specialty Start Date End Date Zainab Fountain (Stagecraft Professor) [address] [place] [address] PCP - General Internal Medicine 08/03/15 Maximiliano Alcocer MD [address] [place] [address] Physician Radiation Oncology 02/16/16 Yoni Hale DPM [address] [place] [address] Physician Orthopedics 01/19/18 Incident Response Specialist Relationship Specialty Start Date End Date Zainab Fountain (Stagecraft Professor) [address] [place] [address] PCP - General Internal Medicine 08/03/15 Maximiliano Alcocer MD [address] [place] [address] Physician Radiation Oncology 02/16/16 Yoni Hale DPM [address] [place] [address] Physician Orthopedics 01/19/18 Incident Response Specialist Relationship Specialty Start Date End Date Zainab Fountain (Stagecraft Professor) [address] [place] [address] PCP - General Internal Medicine 08/03/15 Maximiliano Alcocer MD [address] [place] [address] Physician Radiation Oncology 02/16/16 Yoni Hale DPM [address] [place] [address] Physician Orthopedics 01/19/18 Incident Response Specialist Relationship Specialty Start Date End Date Zainab Fountain (Stagecraft Professor) [address] [place] [address] PCP - General Internal Medicine 08/03/15 Maximiliano Alcocer MD [address] [place] [address] Physician Radiation Oncology 02/16/16 Yoni Hale DPM [address] [place] [address] Physician Orthopedics 01/19/18 Incident Response Specialist Relationship Specialty Start Date End Date Zainab Fountain (Stagecraft Professor) [address] [place] [address] PCP - General Internal Medicine 08/03/15 Maximiliano Alcocer MD [address] [place] [address] Physician Radiation Oncology 02/16/16 Yoni Hale DPM [address] [place] [address] Physician Orthopedics 01/19/18 Incident Response Specialist Relationship Specialty Start Date End Date Zainab Fountain NP [address] [place] [address] PCP - General Internal Medicine 08/03/15 Maximiliano Alcocer MD [address] [place] [address] Physician Radiation Oncology 02/16/16 Yoni Hale DPM [address] [place] [address] Physician Orthopedics 01/19/18 Incident Response Specialist Relationship Specialty Start Date End Date Zainab Fountain NP [address] [place] [address] PCP - General Internal Medicine 08/03/15 Maximiliano Alcocer MD [address] [place] [address] Physician Radiation Oncology 02/16/16 Yoni Hale DPM [address] [place] [address] Physician Orthopedics 01/19/18 Incident Response Specialist Relationship Specialty Start Date End Date Zainab Fountain NP [address] [place] [address] PCP - General Internal Medicine 08/03/15 Maximiliano Alcocer MD [address] [place] [address] Physician Radiation Oncology 02/16/16 Yoni Hale DPM [address] [place] [address] Physician Orthopedics 01/19/18 Incident Response Specialist Relationship Specialty Start Date End Date Zainab Fountain NP [address] [place] [address] PCP - General Internal Medicine 08/03/15 Maximiliano Alcocer MD [address] [place] [address] Physician Radiation Oncology 02/16/16 Yoni Hale DPM [address] [place] [address] Physician Orthopedics 01/19/18 Incident Response Specialist Relationship Specialty Start Date End Date Zainab Fountain NP [address] [place] [address] PCP - General Internal Medicine 08/03/15 Maximiliano Alcocer MD [address] [place] [address] Physician Radiation Oncology 02/16/16 Yoni Hale DPM [address] [place] [address] Physician Orthopedics 01/19/18 Incident Response Specialist Relationship Specialty Start Date End Date Zainab Fountain NP [address] [facility] [place] [address] PCP - General Internal Medicine 08/03/15 Maximiliano Alcocer MD [address] [place] [address] Physician Radiation Oncology 02/16/16 Yoni Hale DPM [address] [place] [address] Physician Orthopedics 01/19/18 Incident Response Specialist Relationship Specialty Start Date End Date Zainab Fountain NP [address] [facility] [place] [address] PCP - General Internal Medicine 08/03/15 Maximiliano Alcocer MD [address] [place] [address] Physician Radiation Oncology 02/16/16 Yoni Hale DPM [address] [place] [address] Physician Orthopedics 01/19/18 Incident Response Specialist Relationship Specialty Start Date End Date Zainab Fountain NP [address] [place] [address] PCP - General Internal Medicine 08/03/15 Maximiliano Alcocer MD [address] [place] [address] Physician Radiation Oncology 02/16/16 Yoni Hale DPM [address] [place] [address] Physician Orthopedics 01/19/18 Incident Response Specialist Relationship Specialty Start Date End Date Zainab Fountain NP [address] [place] [address] PCP - General Internal Medicine 08/03/15 Maximiliano Alcocer MD [address] [place] [address] Physician Radiation Oncology 02/16/16 Yoni Hale DPM [address] [place] [address] Physician Orthopedics 01/19/18 Incident Response Specialist Relationship Specialty Start Date End Date Zainab Fountain NP [address] [facility] [place] [address] PCP - General Internal Medicine 08/03/15 Maximiliano Alcocer MD [address] [place] [address] Physician Radiation Oncology 02/16/16 Yoni Hale DPM [address] [place] [address] Physician Orthopedics 01/19/18 Incident Response Specialist Relationship Specialty Start Date End Date Zainab Fountain NP [address] [place] [address] PCP - General Internal Medicine 08/03/15 Maximiliano Alcocer MD [address] [place] [address] Physician Radiation Oncology 02/16/16 Yoni Hale DPM [address] [place] [address] Physician Orthopedics 01/19/18 Incident Response Specialist Relationship Specialty Start Date End Date Zainab Fountain NP [address] [place] [address] PCP - General Internal Medicine 08/03/15 Maximiliano Alcocer MD [address] [place] [address] Physician Radiation Oncology 02/16/16 Yoni Hale DPM [address] [place] [address] Physician Orthopedics 01/19/18 Incident Response Specialist Relationship Specialty Start Date End Date Zainab Fountain NP [address] [place] [place] [address] PCP - General Internal Medicine 08/03/15 Maximiliano Alcocer MD [address] [place] [address] Physician Radiation Oncology 02/16/16 Yoni Hale DPM [address] [place] [address] Physician Orthopedics 01/19/18 Incident Response Specialist Relationship Specialty Start Date End Date Zainab Fountain NP [address] [place] [address] PCP - General Internal Medicine 08/03/15 Maximiliano Alcocer MD [address] [place], [place] [address] Physician Radiation Oncology 02/16/16 Yoni Hale DPM [address] [place] [address] Physician Orthopedics 01/19/18 FOR RECORDS PERTAINING TO PATIENTS WHO ARE OR HAVE BEEN ENROLLED IN A CHEMICAL DEPENDENCY/SUBSTANCEABUSE PROGRAM, SOME INFORMATION MAY BE OMITTED. This clinical summary was aggregated from multiple sources. Caution should be exercised in using it in the provision of clinical care. This summary normalizes information from multiple sources, and as a consequence, information in this document may materially change the coding, format and clinical context of patient data. In addition, data may be omitted in some cases. CLINICAL DECISIONS SHOULD BE BASED ON THE PRIMARY CLINICAL RECORDS. [id number] [facility]. provides no warranty or guarantee of the accuracy or completeness of information in this document.
[2025-05-17 08:34] LABS: EXAGEN MAILED SPECIMEN
[2025-05-17 10:13] LABS: Hematocrit 38.8 % (37-47); Hemoglobin 13.1 g/dL (12.0-15.0); Immature Granulocytes Count 0.020 X10^3/uL (0.0-0.0); Mean Corp Hgb Conc 33.8 g/dL (32-36); Mean Corpuscular Volume 92.4 fL (81-99); Mean Platelet Vol. 10.1 fl (6.2-12.0); NRBC Flagged by Analyzer 0 % (0-5); Platelet Count 247 K/mm3 (150-450); RBC Distribution Width CV 12.3 % (11.6-14.6); RBC Distribution Width SD 41.9 fl (35.1-43.9); Red Blood Count 4.20 M/mm3 (4.2-5.4); White Blood Count 6.9 K/mm3 (4.4-11.0)
[2025-05-17 10:25] LABS: Color, Urine Yellow (Yellow); Glucose, Dipstick Normal (Normal); Ketone-Dipstick Negative (Negative); Leukocyte Esterase-Dipstick 500 /ul (Negative); Nitrite-Dipstick Negative (Negative); Occult Blood-Urine 25 /ul (Negative); Protein-Dipstick 30 mg/dl (Negative); Specific Gravity, Urine 1.025 (1.002-1.030); Urine Bilirubin Dipstick Negative (Negative)
[2025-05-17 10:46] LABS: Creatinine, Urine (random) 308.00 mg/dL (28.00-217.00); Protein, Urine (Random) 52.8 mg/dL (0.0-12.0); Protein:Creat Ratio 171 mg/g CRE (0-200)
[2025-05-17 10:54] LABS: AST(SGOT) 26 U/L (<=31); Alanine Aminotransfer ALT/SGPT 39 U/L (<=34); Albumin, Serum 4.1 g/dL (3.5-5.0); Alkaline Phosphatase 44 U/L (35-104); Anion Gap 11 (5-15); BUN 15 mg/dL (4-19); BUN/Creat Ratio 18.6 RATIO (10-20); Calcium,Total 9.0 mg/dL (7.6-11.0); Carbon Dioxide 23.6 mmol/L (21.0-32.0); Chloride 107 mmol/L (98-108); Globulin 2.9 g/dL (2.2-4.2); Glucose 94 mg/dL (70-99); Hepatitis B Surface Antigen Nonreactive (Nonreactive); Hepatitis C Antibody Nonreactive (Nonreactive); Potassium 4.0 mmol/L (3.3-5.1)
[2025-05-20 20:08] LABS: Dilute Russell Viper Venom 46.4 sec (0.0-47.0); Interpretation Comment: (.); PTT-LA 38.6 sec (0.0-43.5)
== END | disposition home or self-care (01) ==
LOC: MTLAB 07:28
PROVIDERS: PCP Nurse Practitioner Family; Referring Provider Internal Medicine Rheumatology; Visit Provider Internal Medicine Rheumatology
DX: M06.4 Inflammatory polyarthropathy (principal); R76.8 Other specified abnormal immunological findings in serum
CPT/HCPCS: 36415; 80053; 81002; 82570; 84156; 85025; 86706; 86803; 87340

== ENCOUNTER → 2025-08-29 | Outpatient (CLI) | payer BC, SELFPAY ==
--- OUTSIDE RECORDS SUMMARY | 2025-08-29 07:26 | XMS RPT_ITS | CCD ---
Author Organization [facility] Care Team Providers Care Host And Hostess Name Role Phone Zainab Fountain (Qual Field Manager) Primary Care Provider Leodan BAI MD, Maximiliano Unavailable Yoni Hale Unavailable ZAINAB FOUNTAIN (PROJECT CONTROLS SCHEDULER) Primary Care Unavailabl e RICO CLIFFORD Attending Unavailable RICO CLIFFORD Admitting Unavailable Zainab Fountain (Qual Field Manager) Primary Care Provider Leodan BAI MD, Halieung Unavailable Yoni Hale DPM Unavailable ZAINAB FOUNTAIN Attending Unavailable ZAINAB FOUNTAIN Primary Care Unavailable UNKNOWN, PROVIDER Primary Care Unavailable YONI NUNO Attending Unavailable Leodan BAI, Maximiliano Unavailable Zainab Fountain (Qual Field Manager) Primary Care Provider [phone] Zainab Fountain NP Primary Care Provider ZAINAB RUELAS Primary Care Physician Zainab Fountain NP Primary Care Provider ZAINAB FOUNTAIN Primary Care Unavailable LUDY LEE Attending Unavailable ZAINAB FOUNTAIN Primary Care Unavailable RICO CLIFFORD Attending Unavailable LUDY LEE Referring Unavailable LUDY LEE Attending Unavailable ZAINAB FOUNTAIN Primary Care Unavailable ZAINAB RUELAS Primary Care Physician Zainab Fountain NP Primary Care Provider Алескандр NAVAS-Zainab Almeida Primary Care Provider Dr. Lashanda Kapoor MD Attending Provider Dr. Lashanda Kapoor MD Referring Provider Александр PROJECT CONTROLS SCHEDULER, Zainab Referring Unavailable Александр PROJECT CONTROLS SCHEDULER, Zainab Attending Unavailable Александр PROJECT CONTROLS SCHEDULER, [facility] Primary Care Unavailable Lashanda Kapoor Attending Unavailable Александр PROJECT CONTROLS SCHEDULER, Zainab Primary Care Unavailable Lashanda Kapoor Referring Unavailable HASENSTAUB, LENORE M Attending Unavailable FONUTAIN, ZAINAB DAPHNIE Primary Care Unavailable HASENSTAUB, LENORE M Attending Unavailable FOUNTAIN, ZAINAB DAPHNIE Primary Care Unavailable HASENSTAUB, LENORE M Attending Unavailable FOUNTAIN, ZAINAB DAPHNIE Primary Care Unavailable JACINTO, SHANIQUE Referring Unavailable АЛЕКСАНДР, ZAINAB ELLER Primary Care Unavailable JACINTO SHANIQUE Attending Unavailable АЛЕКСАНДР, ZAINAB DAPHNIE Primary Care Unavailable FOUNTAIN, ZAINAB FRAZIERNE Referring Unavailable АЛЕКСАНДР FASHION MARKETER-SUPERVISOR CUTTING AND SEWING ROOM, ZAINAB Dixon Primary Care Sameer KAPOOR MD, DR LUX Attending John FOUNTAIN FASHION MARKETER-SUPERVISOR CUTTING AND SEWING ROOM, ZAINAB Dixon Attending Sameer FOUNTAIN FASHION MARKETER-SUPERVISOR CUTTING AND SEWING ROOM, ZAINAB L Primary [facility] [place] Sameer alvarenga Allergies Allergy Classification Reported Allergen(s) Allergy Type Date of Onset Reaction(s) Facility (19 sources) Seasonal allergy; Translations: [SEASONAL ALLERGIES] Allergy to substance 7 Unknown, Cough [facility] (4 sources) seasonal enviromental Allergy to substance Sore throat symptom (finding) [facility] NEGATED: Highlighted row has been ruled out! (1 source) Drug allergy [facility] NEGATED: Highlighted row has been ruled out! (1 source) Drug allergy [facility] NEGATED: Highlighted row has been ruled out! (1 source) Drug allergy [facility] NEGATED: Highlighted row has been ruled out! (1 source) Drug allergy [facility] Medications Current Medications Medication Drug Class(es) Dates Sig (Normalized) Sig (Original) 0.5 ML tirzepatide 25 MG/ML Auto-Injector [Mounjaro] (4 sources) Start: 07-22-2024 inject 12.5 mg by subcutaneous injection every week Mounjaro 12.5 mg/0.5 mL subcutaneous solution INJECT 12.5 MG SUBCUTANEOUSLY ONE TIME A WEEK. Start Date: 07/22/24 Status: Ordered Medication Dispense Status: Completed Total Allowed Fills: 1 Fills Dispensed: 0 Start: 07-22-2024 inject 12.5 mg by robertson bcutaneous injection every week Mounjaro 12.5 mg/0.5 mL subcutaneous solution INJECT 12.5 MG SUBCUTANEOUSLY ONE TIME A WEEK. Start Date: 07/22/24 Status: Ordered Repeat number: 1 Start: 07-22-2024 inject 12.5 mg by robertson bcutaneous injection every week Mounjaro 12.5 mg/0.5 mL subcutaneous solution INJECT 12.5 MG SUBCUTANEOUSLY ONE TIME A WEEK. Start Date: 07/22/24 Status: Ordered azithromycin 250 mg oral tablet (1 source) Macrolide Antimicrobial Start: 09-28-2023 Azithromycin (Zithromax Z-Bartolo) 250 mg tablet Active 0 PO .COMPLEX 6 0 September 28, 2023 1:00am For 250 mg dose pack: take 500 mg today (day 1), then 250 mg for 4 days (days 2-5) PO Bacillus Coagulans-Vitamin D3 1 EACH tablet,chewable (1 source) Start: 06-13-2020 Bacillus Coagulans-Vitamin D3 1 EACH tablet,chewable Active 1 NMA PO DAILY June 13, 2020 12:00am calcium carbonate 1250 mg / cholecalciferol 100 unt chewable tablet (1 source) Vitamin D Start: 06-13-2020 Calcium Carbonate-Vitamin D3 1 EACH tablet,chewable Active 1 NMA PO DAILY June 13, 2020 12:00am cider vinegar 300 mg oral tablet (1 source) Start: 06-13-2020 take 1 tablet by mouth once daily Apple Cider Vinegar 300 MG tablet Active 300 mg PO DAILY June 13, 2020 12:00am CPAP/BIPAP/OTHER (20 sources) Start: 01-16-2024 End: 06-02-2051 CPAP/BIPAP/OTHER Indications: HALIMA (obstructive sleep apnea) AutoPAP 5-20 cmH2O Mask per patient preference Lifetime supplies Dx: HALIMA 1 Each 01/16/2024 06/02/2051 Active Start: 01-16-2024 End: 06-02-2051 CPAP/BIPAP/OTHER Indications : HALIMA (obstructive sleep apnea) AutoPAP 5-20 cmH2O Mask per patient preference Lifetime supplies Dx: HALIMA 1 Each 0 01/16/2024 06/02/2051 Active Comment on above: AutoPAP 5-20 cmH2O Mask per patient preference Lifetime supplies Dx: HALIMA hydroxychloroquine sulfate 200 mg oral tablet (1 source) Antimalarial, Antirheumatic Agent Start: 2024 hydrOXYchloroQUINE (PLAQUENIL) 200 mg tablet 06/02/2025 Active ibuprofen 600 mg oral tablet (1 source) Nonsteroidal Anti-inflammatory Drug Start: 2019 take 1 tablet by mouth every six hours as needed for pain Ibuprofen 600 MG tablet Active 600 mg PO EVERY 6 HOURS as needed for Pain 60 1 June 22, 2020 12:00am levonorgestrel 0.749356 mg/hr intrauterine system (20 sources) Progestin, Progestin-containin g Intrauterine Device Start: 2019 levonorgestrel (LILETTA) 20.1 mcg/24 hrs (6 yrs) 52 mg IUD 1 Each by INTRAUTERINE route as directed. put in at [facility] 1 Intra Uterine Device 06/23/2020 Active Comment on above: 1 Each by INTRAUTERI NE route as directed. put in at [facility] meloxicam 15 mg oral tablet (3 sources) Nonsteroidal Anti-inflammatory Drug Start: 2024 End: 2024 meloxicam 15 mg oral tablet Dose : 15 mg = 1 tab(s), Oral, qDay, # 30 tab(s), 3 Refill(s), Pharmacy: [facility]/pharmacy #[id number], Arthralgia, 166, cm, 05/16/25 9:19:00 EDT, Height, kg, 05/16/25 9:19:00 EDT, Dosing Weight Start Date: 05/16/25 Stop Date: 09/13/25 Status: Ordered Medication Dispense Status: Completed Quantity: 30.0 Unit: tab(s) Total Allowed Fills: 4 Fills Dispensed: 0 Indications: Pain in unspecified joint; Multivitamin With Minerals 1 EACH tablet (1 source) Start: 2019 take 1 tablet by mouth once daily Multivitamin With Minerals 1 EACH tablet Active 1 NMA PO DAILY June 13, 2020 12:00am ONETOUCH DELICA PLUS 33G LANCT (4 sources) Start: 2022 ONETOUCH DELICA PLUS 33G LANCT ONETOUCH DELICA PLUS 33G LANCT, USE ONE DAILY Start Date: 07/21/23 Status: Ordered Medication Dispense Status: Completed Total Allowed Fills: 1 Fills Dispensed: 0 Start: 07-21-2023 ONETOUCH DELIC A PLUS 33G LANCT ONETOUCH DELICA PLUS 33G LANCT, USE ONE DAILY Start Date: 07/21/23 Status: Ordered Repeat number: 1 Start: 07-21-2023 ONETOUCH DELIC A PLUS 33G LANCT ONETOUCH DELICA PLUS 33G LANCT, USE ONE DAILY Start Date: 07/21/23 Status: Ordered predniSONE 10 mg oral tablet (2 sources) Start: 06-01-2025 take 1 tablet by mouth once daily as needed predniSONE (DELTASONE) 10 mg tablet TAKE 1 TABLET(S) ORAL DAILY NEEDED TAKE FOR 3-5 DAYS WITH A FLARE 06/01/2025 Active Start: 09-28-2023 Prednisone 10 mg tablet Active 10 mg PO .COMPLEX 30 0 September 28, 2023 1:00am Take 4 pills for 3 days, 3 pills for 3 days, 2 pills for 3 days, take 1 pill for 3 days 0.25 mg, 0.5 mg dose 1.5 ml semaglutide 1.34 mg/ml pen injector (4 sources) Start: 10-30-2022 End: 01-13-2023 semaglutide (OZEMPIC) 0.25 mg or 0.5 mg(2 mg/1.5 mL) pen Indications: Class 3 severe obesity due to excess calories in adult, unspecified BMI, unspecified whether serious comorbidity present ([facility]) , Dietary counseling and surveillance , BMI 40.0-44.9, adult ([facility]) , Inflammatory breast cancer, right ([facility]) , Moderate mixed hyperlipidemia not requiring statin therapy , HALIMA (obstructive sleep apnea) , Controlled type 2 diabetes mellitus without complication, without long-term current use of insulin ([facility]) Inject 0.25 mg subcutaneously one time a [...] tirzepatide (MOUNJARO) 15 mg/0.5 mL pen injector (20 sources) Start: 06-20-2025 End: 09-18-2025 tirzepatide (MOUNJARO) 15 mg/0.5 mL pen injector Indications: Dietary counseling and surveillance , Type 2 diabetes mellitus with other specified complication, without long-term current use of insulin (HCC) , BMI 37.0-37.9, adult Inject 15 mg subcutaneously one time a week. Patient should start on June 20, 2025. 6 mL 06/20/2025 09/18/2025 Active Start: 05-26-2025 End: 06-06-2025 tirzepatide (MOUNJARO) 15 mg /0.5 mL pen injector Indications: Type 2 diabetes mellitus with other specified complication, without long-term current use of insulin ([facility]) , Dietary counseling and surveillance , BMI 37.0-37.9, adult Inject 15 mg subcutaneously one time a week. 2 mL 05/26/2025 06/06/2025 Discontinued Start: 05-26-2025 End: 06-25-2025 tirzepatide (MOUNJARO) 15 mg /0.5 mL pen injector Indications: Type 2 diabetes mellitus with other specified complication, without long-term current use of insulin ([facility]) , Dietary counseling and surveillance , BMI 37.0-37.9, adult Inject 15 mg subcutaneously one time a week. 2 mL 05/26/2025 06/25/2025 Active Start: 02-09-2025 End: 05-04-2025 tirzepatide (MOUNJARO) 15 mg /0.5 mL pen injector Indications: Type 2 diabetes mellitus with other specified complication, without long-term current use of insulin ([facility]) , Dietary counseling and surveillance , BMI 37.0-37.9, adult Inject 15 mg subcutaneously one time a week. 2 mL 2 02/09/2025 05/04/2025 Active Start: 11-18-2024 End: 02-09-2025 tirzepatide (MOUNJARO) 15 mg /0.5 mL pen injector Indications: Type 2 diabetes mellitus with other specified complication, without long-term current use of insulin ([facility]) , Dietary counseling and surveillance , BMI 37.0-37.9, adult Inject 15 mg subcutaneously one time a week. 2 mL 2 11/18/2024 02/09/2025 Discontinued Start: 11-18-2024 End: 02-10-2025 tirzepatide (MOUNJARO) 15 mg /0.5 mL pen injector Indications: Type 2 diabetes mellitus with other specified complication, without long-term current use of insulin ([facility]) , Dietary counseling and surveillance , [...] complication, without long-term current use of insulin ([facility]) , Dietary counseling and surveillance , BMI 37.0-37.9, adult Inject 15 mg subcutaneously one time a week. 2 mL 10/19/2024 11/18/2024 Active Start: 09-13-2024 End: 10-13-2024 tirzepatide (MOUNJARO) 15 mg /0.5 mL pen injector Indications: Type 2 diabetes mellitus with other specified complication, without long-term current use of insulin ([facility]) , Dietary counseling and surveillance , BMI 37.0-37.9, adult Inject 15 mg subcutaneously one time a week. 2 mL 09/13/2024 10/13/2024 Active Start: 08-16-2024 End: 09-13-2024 tirzepatide (MOUNJARO) 15 mg /0.5 mL pen injector Indications: Type 2 diabetes mellitus with other specified complication, without long-term current use of insulin ([facility]) , Dietary counseling and surveillance , BMI 37.0-37.9, adult Inject 15 mg subcutaneously one time a week. 2 mL 08/16/2024 09/13/2024 Discontinued Start: 08-16-2024 End: 09-15-2024 tirzepatide (MOUNJARO) 15 mg /0.5 mL pen injector Indications: Type 2 diabetes mellitus with other specified complication, without long-term current use of insulin ([facility]) , Dietary counseling and surveillance , BMI 37.0-37.9, adult Inject 15 mg subcutaneously one time a week. 2 mL 08/16/2024 09/15/2024 Active Completed/Discontinued Medications Medication Drug Class(es) Dates Sig (Normalized) Sig (Original) acetaminophen 325 mg / oxyCODONE hydrochloride 5 mg oral tablet (1 source) Opioid Agonist Start: 06-22-2020 End: 06-26-2020 Oxycodone-Acetamino phen 1 TABLET tablet Discontinued 1 {tbl} PO EVERY 8 HOURS as needed for Pain 8 4 June 22, 2020 June 25, 2020 12:00am June 26, 2020 12:02am Postoperative pain Other acute postprocedural pain calcium carbonate 1250 mg / cholecalciferol 1000 [...] Vitamin D Start: 10-30-2022 End: 08-27-2023 take [id number] [IU] by mouth once daily cholecalciferol, Vitamin D3, (VITAMIN D3) 1,250 mcg (50,000 unit) cap capsule Indications: vitamin D deficiency Take 1 capsule by mouth one time a week. Transition to 2,000-4,000 units of Vitamin D OTC after completing 12 weeks 12 capsule 0 10/30/2022 08/27/2023 Discontinued (Discontinued by Patient) Comment on above: Take [address] [facility] one time a week. Transition to 2,000-4,000 [...] breakfast 90 tablet 08/09/2024 10/22/2024 Discontinued Start: 09-28-2023 take 1 tablet by shawn th every twenty-four hours Metformin 500 mg tablet extended release 24 hr Active mg PO September 28, 2023 1:00am Start: 07-21-2023 End: 01-17-2024 MetFORMIN (Eqv-Glucophage XR ) 500 mg oral tablet, EXTENDED RELEASE Dose : 500 mg = 1 tab(s), Oral, qDay, # 90 tab(s), 1 Refill(s), Pharmacy: [facility]/pharmacy #[id number], Hyperglycemia, 166, cm, 07/21/23 7:42:00 EDT, Height, kg, 07/21/23 7:42:00 EDT, Dosing Weight Start Date: 07/21/23 Stop Date: 01/17/24 Status: Ordered Medication Dispense Status: Completed Quantity: 90.0 Unit: tab(s) Total Allowed Fills: 2 Fills Dispensed: 0 Indications: Hyperglycemia, unspecified; Start: 07-18-2022 End: 02-09-2024 [...] complication, without long-term current use of insulin ([facility]) , HALIMA (obstructive sleep apnea) Inject 10 mg subcutaneously one time a week. 2 mL 0 04/20/2024 05/18/2024 Discontinued Start: 04-20-2024 End: 05-20-2024 MOUNJARO 10 mg/0.5 mL pen in jector Indications: BMI 40.0-44.9, adult ([facility]) , Dietary counseling and surveillance , Type 2 diabetes mellitus with other specified complication, without long-term current use of insulin ([facility]) , HALIMA (obstructive sleep apnea) Inject 10 mg subcutaneously one time a week. 2 mL 0 04/20/2024 05/20/2024 Active Start: 03-21-2024 End: 04-20-2024 MOUNJARO 10 mg/0.5 mL pen in jector Indications: BMI 40.0-44.9, adult ([facility]) , Dietary counseling and surveillance , Type 2 diabetes mellitus with other specified complication, without long-term current use of insulin ([facility]) , HALIMA (obstructive sleep apnea) Inject 10 mg subcutaneously one time a week. 2 mL 0 03/21/2024 04/20/2024 Discontinued Start: 03-21-2024 End: 04-20-2024 MOUNJARO 10 mg/0.5 mL pen in jector Indications: BMI 40.0-44.9, adult ([facility]) , Dietary counseling and surveillance , Type 2 diabetes mellitus with other specified complication, without long-term current use of insulin ([facility]) , HALIMA (obstructive sleep apnea) Inject 10 mg subcutaneously one time a week. 2 mL 0 03/21/2024 04/20/2024 Active Start: 02-09-2024 End: 03-10-2024 MOUNJARO 10 mg/0.5 mL pen in jector Indications: BMI 40.0-44.9, adult ([facility]) , Dietary counseling and surveillance , [...] ea three times daily. polyethylene glycol [id number] mg / potassium chloride 2970 mg / sodium bicarbonate 6740 mg / sodium chloride 5860 mg / sodium sulfate 24098 mg powder for oral solution (2 sources) [...] complication, without long-term current use of insulin ([facility]) Inject 1 mg subcutaneously one time [...] complication, without long-term current use of insulin ([facility]) , BMI 40.0-44.9, adult (HCC) Inject 2 mg subcutaneously one time a week. 3 mL 1 07/28/2023 08/20/2023 Discontinued Start: 07-28-2023 End: 09-22-2023 semaglutide (OZEMPIC) 2 mg/d ose (8 mg/3 mL) pen injector Indications: HALIMA (obstructive sleep apnea) , Dietary counseling and surveillance , Type 2 diabetes mellitus with other specified complication, without long-term current use of insulin ([facility]) , BMI 40.0-44.9, adult ([facility]) Inject 2 mg subcutaneously one time a week. 3 mL 1 07/28/2023 09/22/2023 Active Start: 06-09-2023 End: 07-28-2023 semaglutide (OZEMPIC) 2 mg/d ose (8 mg/3 mL) pen injector Indications: HALIMA (obstructive sleep apnea) , Dietary counseling and surveillance , Type 2 diabetes mellitus with other specified complication, without long-term current use of insulin ([facility]) , BMI 40.0-44.9, adult (HCC) Inject 2 mg subcutaneously one time a week. 3 mL 1 06/09/2023 07/28/2023 Discontinued Start: 06-09-2023 End: 08-04-2023 semaglutide (OZEMPIC) 2 mg/d ose (8 mg/3 mL) pen injector Indications: HALIMA (obstructive sleep apnea) , Dietary counseling and surveillance , Type 2 diabetes mellitus with other specified complication, without long-term current use of insulin ([facility]) , BMI 40.0-44.9, adult ([facility]) Inject 2 mg subcutaneously one time a week. 3 mL 1 06/09/2023 08/04/2023 Active Start: 06-09-2023 End: 06-09-2023 semaglutide (OZEMPIC) 2 mg/d ose (8 mg/3 mL) pen injector Indications: HALIMA (obstructive sleep apnea) , Dietary counseling and surveillance , Type 2 diabetes mellitus with other specified complication, without long-term current use of insulin ([facility]) , BMI 40.0-44.9, adult ([facility]) Inject 2 mg subcutaneously one time [...] complication, without long-term current use of insulin ([facility]) , HALIMA (obstructive sleep apnea) Inject 12.5 [...] complication, without long-term current use of insulin ([facility]) , HALIMA (obstructive sleep apnea) , Dietary counseling and surveillance , BMI 40.0-44.9, adult ([facility]) Inject 2.5 mg subcutaneously one time a week. 2 mL 0 08/27/2023 09/26/2023 Active Comment on above: Inject 2.5 mg subcut aneously one time a week. tirzepatide (MOUNJARO) 5 mg/0.5 mL pen injector (8 sources) Start: 01-19-2024 End: 01-21-2024 tirzepatide (MOUNJARO) 5 mg/0.5 mL pen injector Indications: Type 2 diabetes mellitus with other specified complication, without long-term current use of insulin ([facility]) , Dietary counseling and surveillance , BMI 38.0-38.9,adult Inject 5 mg subcutaneously one time a week. 2 mL 0 01/19/2024 01/21/2024 Discontinued (Course of therapy completed) Start: 01-19-2024 End: 02-18-2024 tirzepatide (MOUNJARO) 5 mg/ 0.5 mL pen injector Indications: Type 2 diabetes mellitus with other specified complication, without long-term current use of insulin ([facility]) , Dietary counseling and surveillance , BMI 38.0-38.9,adult Inject 5 mg subcutaneously one time a week. 2 mL 0 01/19/2024 02/18/2024 Active Start: 12-23-2023 End: 01-19-2024 tirzepatide (MOUNJARO) 5 mg/ 0.5 mL pen injector Indications: Type 2 diabetes mellitus with other specified complication, without long-term current use of insulin ([facility]) , Dietary counseling and surveillance , BMI 38.0-38.9,adult Inject 5 mg subcutaneously one time a week. 2 mL 0 12/23/2023 01/19/2024 Discontinued Start: 12-23-2023 End: 01-22-2024 tirzepatide (MOUNJARO) 5 mg/ 0.5 mL pen injector Indications: Type 2 diabetes mellitus with other specified complication, without long-term current use of insulin ([facility]) , Dietary counseling and surveillance , [...] counseling and surveillance , BMI 40.0-44.9, adult ([facility]) Inject 5 mg subcutaneously one time a week. 2 mL 0 09/23/2023 11/17/2023 Discontinued Start: 09-23-2023 End: 10-23-2023 tirzepatide (MOUNJARO) 5 mg/ 0.5 mL pen injector Indications: Type 2 diabetes mellitus with other specified complication, without long-term current use of insulin (HCC) , HALIMA (obstructive sleep apnea) , Dietary counseling and surveillance , BMI 40.0-44.9, adult ([facility]) Inject 5 mg subcutaneously one time a week. 2 mL 0 09/23/2023 10/23/2023 Active Comment on above: Inject 5 mg subcutan eously one time a week. tirzepatide (MOUNJARO) 7.5 mg/0.5 mL pen injector (7 sources) Start: 01-21-2024 End: 02-09-2024 tirzepatide (MOUNJARO) 7.5 mg/0.5 mL pen injector Indications: Type 2 diabetes mellitus with other specified complication, without long-term current use of insulin ([facility]) , Dietary counseling and surveillance , BMI 40.0-44.9, adult ([facility]) Inject 7.5 mg subcutaneously one time a week. 2 mL 0 01/21/2024 02/09/2024 Discontinued Start: 01-21-2024 End: 02-20-2024 tirzepatide (MOUNJARO) 7.5 m g/0.5 mL pen injector Indications: Type 2 diabetes mellitus with other specified complication, without long-term current use of insulin (HCC) , Dietary counseling and surveillance , BMI 40.0-44.9, adult ([facility]) Inject 7.5 mg subcutaneously one time [...] mg subcut aneously one time a week. topiramate 25 mg oral tablet (9 sources) Start: 02-10-20 End: 06-06-20 take 37-37.9 tablets by mouth once daily [...] MOUTH EVERYDAY AT BEDTIME 90 tablet 05/09/2025 06/06/2025 Discontinued Problems Active Problems Problem Classification Problem Date Documented Da te Episodic/Chronic Acute bronchitis (3 sources) Acute bronchitis; Translations: [Acute bronchitis, unspecified] Onset: 10-09-2023 Episodic Cancer of breast (20 sources) Inflammatory [...] Chronic Other nutritional; endocrine; and metabolic disorders (12 sources) Body mass index 30+ - obesity; Translations: [Body mass index (BMI) 38.0-38.9, adult] 12-16-2023 Chronic Other nutritional; endocrine; and metabolic disorders (1 source) Body mass index (BMI) 40.0-44.9, adult; Translations: [BMI 40.0-44.9, adult ([facility])] Onset: 11-17-2023 Chronic Other nutritional; endocrine; and [...] food and fluid intake] 02-09-2025 Episodic Other upper respiratory disease (1 source) Seasonal allergy; Translations: [Other seasonal allergic rhinitis] 09-28-2023 Chronic Residual codes; unclassified (20 sources) Obstructive sleep apnea syndrome; Translations: [Obstructive sleep apnea (adult) (pediatric)] Onset: 05-30-2023 05-30-2023 Chronic Residual codes; unclassified (1 source) Obstructive sleep apnea (adult) (pediatric); Translations: [HALIMA (obstructive sleep apnea)] Onset: 04-23-2024 Chronic Residual codes; unclassified (1 source) Family history of malignant neoplasm of digestive organs; Translations: [Family history of colon cancer in father] Onset: 12-13-2024 Episodic Rheumatoid arthritis and related disease (1 source) Inflammatory polyarthropathy; Translations: [Inflammatory polyarthropathy] Onset: 05-24-2025 Chronic Unclassified (2 sources) Patient encounter status 12-13-2024 Unclassified (1 source) Class 3 severe obesity with serious comorbidity in adult (HCC); Translations: [Class 3 severe obesity with serious comorbidity in adult (HCC)] Onset: 11-17-2023 Unclassified (1 source) Class 3 [...] quadrant pain] Onset: 08-28-2022 Resolved: 08-28-2022 Episodic Administrative/social admission (1 source) Dietary counseling and surveillance; Translations: [Dietary counseling and surveillance] Onset: 02-09-2025 Episodic Biliary tract disease (20 sources) Biliary calculus; Translations: [Calculus of gallbladder with other cholecystitis without obstruction] Onset: 08-28-2022 Resolved: 08-28-2022 Episodic Other nutritional; endocrine; and metabolic disorders (1 source) Other symptoms and signs concerning food and fluid intake; Translations: [Abnormal craving] Onset: 02-09-2025 Episodic Other screening for suspected conditions (not mental disorders or infectious disease) (20 sources) Patient encounter status; Translations: [Encounter for screening mammogram for malignant neoplasm of breast] Onset: 10-13-2014 Episodic Residual codes; unclassified (20 sources) History [...] Test Name Value Interpretation Reference Range Facility US ABDOMEN LIMITEDon 025 US ABDOMEN LIMITED ORIGINAL EXAMINATION: RIGHT UPPER QUADRANT ULTRASOUND 08/01/2025 7:35 am COMPARISON: None. HISTORY: ORDERING SYSTEM PROVIDED HISTORY: Reason for Exam: elevated liver enzymes All images are recorded and archived. FINDINGS: LIVER: Liver measures 17.2 cm in length. Moderate diffuse increased echotexture is seen throughout the hepatic parenchyma with masking of the portal triads. Hepatic contour is smooth. Normal hepatopetal flow observed in the main portal vein. BILIARY SYSTEM: Gallbladder surgically absent. Common bile duct is within normal limits measuring 3.2 mm. RIGHT KIDNEY: The right kidney is grossly unremarkable without evidence of hydronephrosis. Right kidney measures 10.5 x 6.1 x 5.8 cm. There is normal cortical thickness and echotexture. PANCREAS: Visualized portions of the pancreas are unremarkable. OTHER: No evidence of right upper quadrant ascites. IMPRESSION: 1. Moderate fatty infiltration of the liver. 2. No acute right upper quadrant pathology. Interpreted by: Yosvany Bernardo DO Preliminary Report By: Yosvany Bernardo DO Electronically signed By Yosvany Bernardo DO Dictated Date: 08/01/2025 11:40:49 AM Prelim Date: 08/01/2025 11:57:50 AM Sign Date: 08/01/2025 11:57:50 AM Ordering Provider: [facility] ---- TAMEKA ALLAN ([id number]) 1975 F Date Time Provider Department 06/06/25 9:30 AM LENORE MORELOS AGG[facility]4 During your visit today, we recorded the following information about you: Pulse Blood pressure Weight Height 77/minute 102/70 98.5 kg 1.664 m Lenore Morelos APRN.SUPERVISOR CUTTING AND SEWING ROOM 06/06/2025 10:58 AM Signed Obesity Medicine Followup Note Recording using View[employer] software for draft documentation of the visit was discussed with the patient/authorized territory service representative; all questions welcomed and answered. Patient/authorized territory service representative agreed to proceed 06-06-25 Patient HPI: is 48 year old Female [...] since last visit: Goal weight 160 Today's weight:217 lbs Last weight: 223 BMI: 35.59 Today's concerns: New labs Current Obesity Medications: Mounjaro 15 mg subcutaneous weekly injection topiramate 25 mg tablet not taking at this time some joint pain and follow up with rheumatology and temporarily stopped. Increased fatigue No real hunger or cravings Reports no changes with the Mounjaro Bs controlled (Recent sl elevated ALT tylenol tid extra strength which could have elevated ALT was 39 Now on meloxicam pending repeat lab with Pcp August 2025) Exercise Freq- continues with steps and walking, and joined [employer] classes and weight training; walking at work and Barriers- some fatigue and traveling and holidays Work-related activity: active Diet Healthy food choices Meals 3 3 meals daily Triple zero yogurt Protein and veggies Starting with protein shake Water 60-80 ounces Snacking: healthier options Fruit and salads Dinner at 5-7 pm B7 l -12 ?Sleep Duration (<6hr)- 6-7 hours Quality- using cpap nightly Stress Degree- moderate Cause-coping PAST MEDICAL HISTORY Diagnosis Date Atypical mole [...] Review of Systems: Review of Systems Constitutional: Positive for fatigue. HENT: Negative. Eyes: No hx of glaucoma Respiratory: Negative. Cardiovascular: Negative. Gastrointestinal: Had some sl diarrhea when on vacation; Tracking food Dietary fiber Endocrine: No hx of hypothyroidism Genitourinary: No renal stones Musculoskeletal: Positive for myalgias. Skin: Negative. Allergic/Immunologi c: Negative. Neurological: Negative. Hematological: Negative. Psychiatric/Behavio ral: Negative. PAST SURGICAL HISTORY Procedure Laterality Date [...] 1995 Quit date: 02/20/2007 Years since quittin.3 Passive exposure: Past Smokeless tobacco: Never Vaping Use Vaping status: Never Used Substance Use Topics Alcohol use: Yes Alcohol/week: 2.0 standard drinks of alcohol Types: 1 Glasses of wine, 1 Cans of beer per week Comment: occasional Zhao (more content not included)... Normal [facility] Lupus Anticoagulant Compon 0 05-20-2025 aPTT Coag (Bld) [Time] 38.6 s Normal 0.0-43.5 [facility] Comment on above: Performed By: #### L 3890.3067, L500.4050, L3890.6102, L100.0100, L4500.0100, L400.2010, L3890.6202, L501.0900 #### [facility] [address] [place], [place], [id number] DILUTE PT (dPT) 38.2 sec Normal 0.0-47.6 [facility] Comment on above: Performed By: #### L 3890.6301, L500.4050, L3890.6102, L100.0100, L4500.0100, L400.2010, L3890.6202, L501.0900 #### [facility] [address] [place], [address] dPT Conf. Ratio 1.22 Ratio Normal 0.00-1.34 [facility] Comment on above: Performed By: #### L 3890.6301, L500.4050, L3890.6102, L100.0100, L4500.0100, L400.2010, L3890.6202, L501.0900 #### [facility] [address] [place], [address] DRVVT 46.4 sec Normal 0.0-47.0 [facility] Comment on above: Performed By: #### L 3890.6301, L500.4050, L3890.6102, L100.0100, L4500.0100, L400.2010, L3890.6202, L501.0900 #### [facility] [address] [place], [place], [id number] Interpretation Comment: Normal . [facility] Comment on above: Result Comment: No l upus anticoagulant was detected. Performed at: [address] [id number] Cylinder Tester: Jose Chambers MD, Phone: [phone] Performed By: #### L 3890.6301, L500.4050, L3890.6102, L100.0100, L4500.0100, L400.2010, L3890.6202, L501.0900 #### [facility] [address] [place], [address] THROMBIN TIME 21.7 sec Normal 0.0-23.0 [facility] Comment on above: Performed By: #### L 3890.6301, L500.4050, L3890.6102, L100.0100, L4500.0100, L400.2010, L3890.6202, L501.0900 #### [facility] [address] [place], [address] Absolute lymphocyte countOrd ered By: Lashanda Kapoor on 05-17-2025 Lymphocytes Auto (Unsp spec) [#/Vol] 1.57 10*3/uL 0.83-4.51 [facility] Absolute neutrophil countOrd ered By: Lashanda Kapoor on 05-17-2025 Neutrophils (Bld) [#/Vol] 4.6 10*3/uL 2.0-7.7 [facility] Anion gap in Serum or Plasma Ordered By: Lashanda Kapoor on 05-17-2025 Anion gap [Moles/Vol] 11 mmol/L 5-15 [facility] Automated lymphocyte count a s percentage of total leukocytesOrdered By: Lashanda Kapoor on 05-17-2025 Lymphocytes/100 WBC Auto (Unsp spec) 22.8 % 19-41 [facility] BUN/creatinine ratioOrdered By: Lashanda Kapoor on 05-17-2025 Urea nitrogen/Creatinine [Mass ratio] 18.6 mg/mg 10-20 [facility] Basophil percentageOrdered B y: Lashanda Kapoor on 05-17-2025 Basophils/100 WBC (Bld) 0.6 % 0-1 [facility] Bilirubin Test strip Ql (U)O rdered By: Lashanda Kapoor on 05-17-2025 Bilirubin Ql (U) Negative Negative [facility] Bilirubin, totalOrdered By: Lashanda Kapoor on 05-17-2025 Bilirubin [Mass/Vol] 0.62 mg/dL 0.00-1.[address] [facility] CBC W/Diff, Automatedon 08-0 5-2025 Absolute Lymph 1.57 X10 3/uL Normal 0.83-4.51 [facility] Comment on above: Performed By: #### L 3890.6301, L500.4050, L3890.6102, L100.0100, L4500.0100, L400.2011, L3890.6202, L501.0900 #### [facility] [address] [place], [address] Absolute Neut 4.6 X10 3/uL Normal 2.0-7.7 [facility] Comment on above: Performed By: #### L 3890.6301, L500.4050, L3890.6102, L100.0100, L4500.0100, L400.2011, L3890.6202, L501.0900 #### [facility] [address] [place], [address] Basophils/100 WBC (Bld) 0.6 % Normal 0-1 [facility] Comment on above: Performed By: #### L 3890.6301, L500.4050, L3890.6102, L100.0100, L4500.0100, L400.2010, L3890.6202, L501.0900 #### [facility] [address] [place], [address] Eosinophils/100 WBC (Bld) 2.2 % Normal 0-5 [facility] Comment on above: Performed By: #### L 3890.6301, L500.4050, L3890.6102, L100.0100, L4500.0100, L400.2010, L3890.6202, L501.0900 #### [facility] [address] [place], [address] Erythrocyte distribution width (RBC) [Ratio] 12.3 % Normal 11.6-14.6 [facility] Comment on above: Performed By: #### L 3890.6301, L500.4050, L3890.6102, L100.0100, L4500.0100, L400.2010, L3890.6202, L501.0900 #### [facility] [address] [place], [address] Hematocrit (Bld) [Volume fraction] 38.8 % Normal 37-47 [facility] Comment on above: Performed By: #### L 3890.6301, L500.4050, L3890.6102, L100.0100, L4500.0100, L400.2010, L3890.6202, L501.0900 #### [facility] [address] [place], [address] Hemoglobin (Bld) [Mass/Vol] 13.1 g/dL Normal 12.0-15.0 [facility] Comment on above: Performed By: #### L 3890.6301, L500.4050, L3890.6102, L100.0100, L4500.0100, L400.2010, L3890.6202, L501.0900 #### [facility] [address] [facility] [place], [address] IG% 0.300 Normal 0.0-0.9 [facility] Comment on above: Result Comment: IG% - Immature Granulocytes (promyelocytes, myelocytes and metamyelocytes) > 1% indicates that a LEFT SHIFT is Present. Performed By: #### L 3890.6301, L500.4050, L3890.6102, L100.0100, L4500.0100, L400.2010, L3890.6202, L501.0900 #### [facility] [address] [facility] [place], [address] Lymphocytes/100 WBC (Bld) 22.8 % Normal 19-41 [facility] Comment on above: Performed By: #### L 3890.6301, L500.4050, L3890.6102, L100.0100, L4500.0100, L400.2011, L3890.6202, L501.0900 #### [facility] [address] [place], [address] MCH (RBC) [Entitic mass] 31.2 pg Normal 27.0-32.0 [facility] Comment on above: Performed By: #### L 3890.6301, L500.4050, L3890.6102, L100.0100, L4500.0100, L400.2011, L3890.6202, L501.0900 #### [facility] [address] [place], [address] MCHC (RBC) [Mass/Vol] 33.8 g/dL Normal 32-36 [facility] Comment on above: Performed By: #### L 3890.6301, L500.4050, L3890.6102, L100.0100, L4500.0100, L400.2010, L3890.6202, L501.0900 #### [facility] [address] [place], [address] MCV (RBC) [Entitic vol] 92.4 fL Normal 81-99 [facility] Comment on above: Performed By: #### L 3890.6301, L500.4050, L3890.6102, L100.0100, L4500.0100, L400.2010, L3890.6202, L501.0900 #### [facility] [address] [place], [address] Monocytes/100 WBC (Bld) 7.6 % Normal 0-10 [facility] Comment on above: Performed By: #### L 3890.6301, L500.4050, L3890.6102, L100.0100, L4500.0100, L400.2010, L3890.6202, L501.0900 #### [facility] [address] [place], [address] Neutrophils/100 WBC (Bld) 66.5 % Normal 47-70 [facility] Comment on above: Performed By: #### L 3890.6301, L500.4050, L3890.6102, L100.0100, L4500.0100, L400.2011, L3890.6202, L501.0900 #### [facility] [address] [place], [address] Nucleated RBC (Bld) [#/Vol] 0 10*3/uL Normal 0-5 [facility] Comment on above: Performed By: #### L 3890.6301, L500.4050, L3890.6102, L100.0100, L4500.0100, L400.2011, L3890.6202, L501.0900 #### [facility] [address], [address] Platelet mean volume (Bld) [Entitic vol] 10.1 fL Normal 6.2-12.0 [facility] Comment on above: Performed By: #### L 3890.6301, L500.4050, L3890.6102, L100.0100, L4500.0100, L400.2010, L3890.6202, L501.0900 #### [facility] [address] [place], [address] Platelets (Bld) [#/Vol] 247 10*3/uL Normal 150-450 [facility] Comment on above: Performed By: #### L 3890.6301, L500.4050, L3890.6102, L100.0100, L4500.0100, L400.2010, L3890.6202, L501.0900 #### [facility] [address] [place], [address] RBC (Bld) [#/Vol] 4.20 10*6/uL Normal 4.2-5.4 [facility] Comment on above: Performed By: #### L 3890.6301, L500.4050, L3890.6102, L100.0100, L4500.0100, L400.2010, L3890.6202, L501.0900 #### [facility] [address] [place], [address] RDW SD 41.9 fl Normal 35.1-43.9 [facility] Comment on above: Performed By: #### L 3890.6301, L500.4050, L3890.6102, L100.0100, L4500.0100, L400.2010, L3890.6202, L501.0900 #### [facility] [address] [place], [address] WBC (Bld) [#/Vol] 6.9 10*3/uL Normal 4.4-11.0 [facility] Comment on above: Performed By: #### L 3890.6301, L500.4050, L3890.6102, L100.0100, L4500.0100, L400.2010, L3890.6202, L501.0900 #### [facility] [address] [facility] [place], [address] Carbon dioxide, total [Moles /volume] in Central venous bloodOrdered By: Lashanda Kapoor on 05-17-2025 CO2 [Moles/Vol] 23.6 mmol/L 21.0-32.0 [facility] Chloride assayOrdered By: Franklin Kapoor on 05-17-2025 Chloride [Moles/Vol] 107 mmol/L 98-[address] [facility] Comprehensive Metabolic Prof ilon 05-17-2025 Albumin [Mass/Vol] 4.1 g/dL Normal 3.5-5.0 [facility] Comment on above: Performed By: #### L 3890.6301, L500.4050, L3890.6102, L100.0100, L4500.0100, L400.2010, L3890.6202, L501.0900 #### [facility] [address] [place], [address] Albumin/Globulin [Mass ratio] 1.4 {ratio} Normal 0.9-2.4 [facility] Comment on above: Performed By: #### L 3890.6301, L500.4050, L3890.6102, L100.0100, L4500.0100, L400.2010, L3890.6202, L501.0900 #### [facility] [address] [place], [address] ALK PHOS 44 U/L Normal 35-104 [facility] Comment on above: Performed By: #### L 3890.6301, L500.4050, L3890.6102, L100.0100, L4500.0100, L400.2010, L3890.6202, L501.0900 #### [facility] [address] [place], [address] ALT [Catalytic activity/Vol] 39 U/L High <=34 [facility] Comment on above: Performed By: #### L 3890.6301, L500.4050, L3890.6102, L100.0100, L4500.0100, L400.2010, L3890.6202, L501.0900 #### [facility] [address] [place], [address] AST [Catalytic activity/Vol] 26 U/L Normal <=31 [facility] Comment on above: Performed By: #### L 3890.6301, L500.4050, L3890.6102, L100.0100, L4500.0100, L400.2010, L3890.6202, L501.0900 #### [facility] [address] [place], [address] Bilirubin [Mass/Vol] 0.62 mg/dL Normal 0.00-1.[address] [facility] Comment on above: Performed By: #### L 3890.6301, L500.4050, L3890.6102, L100.0100, L4500.0100, L400.2011, L3890.6202, L501.0900 #### [facility] [address] [place], [address] BUN/CRE 18.6 RATIO Normal 10-20 [facility] Comment on above: Performed By: #### L 3890.6301, L500.4050, L3890.6102, L100.0100, L4500.0100, L400.2010, L3890.6202, L501.0900 #### [facility] [address] [place], [address] Calcium [Mass/Vol] 9.0 mg/dL Normal 7.6-11.0 [facility] Comment on above: Performed By: #### L 3890.6301, L500.4050, L3890.6102, L100.0100, L4500.0100, L400.2010, L3890.6202, L501.0900 #### [facility] [address] [place], [address] Chloride [Moles/Vol] 107 mmol/L Normal 98-[address] [facility] Comment on above: Performed By: #### L 3890.6301, L500.4050, L3890.6102, L100.0100, L4500.0100, L400.2010, L3890.6202, L501.0900 #### [facility] [address] [place], [address] CO2 [Moles/Vol] 23.6 mmol/L Normal 21.0-32.0 [facility] Comment on above: Performed By: #### L 3890.6301, L500.4050, L3890.6102, L100.0100, L4500.0100, L400.2010, L3890.6202, L501.0900 #### [facility] [address] [place], [address] Creatinine [Mass/Vol] 0.79 mg/dL Normal 0.70-1.20 [facility] Comment on above: Performed By: #### L 3890.6301, L500.4050, L3890.6102, L100.0100, L4500.0100, L400.2010, L3890.6202, L501.0900 #### [facility] [address] [place], [address] GAP 11 Normal 5-15 [facility] Comment on above: Performed By: #### L 3890.6301, L500.4050, L3890.6102, L100.0100, L4500.0100, L400.2010, L3890.6202, L501.0900 #### [facility] [address] [place], [address] GFR/1.73 sq M.predicted among non-blacks MDRD (S/P/Bld) [Vol rate/Area] 93 mL/min/{1.73_m2} Normal >60 [facility] Comment on above: Result Comment: mL/m in/1.73m2 CKD-EPI Creatinine Equation (2020) Performed By: #### L 3890.6301, L500.4050, L3890.6102, L100.0100, L4500.0100, L400.2010, L3890.6202, L501.0900 #### [facility] [address] [place], [address] Globulin (S) [Mass/Vol] 2.9 g/dL Normal 2.2-4.2 [facility] Comment on above: Performed By: #### L 3890.6301, L500.4050, L3890.6102, L100.0100, L4500.0100, L400.2010, L3890.6202, L501.0900 #### [facility] [address] [place], [address] Glucose [Mass/Vol] 94 mg/dL Normal 70-99 [facility] Comment on above: Performed By: #### L 3890.6301, L500.4050, L3890.6102, L100.0100, L4500.0100, L400.2010, L3890.6202, L501.0900 #### [facility] [address] [place], [address] Potassium [Moles/Vol] 4.0 mmol/L Normal 3.3-5.1 [facility] Comment on above: Performed By: #### L 3890.6301, L500.4050, L3890.6102, L100.0100, L4500.0100, L400.2010, L3890.6202, L501.0900 #### [facility] [address] [place], [address] Sodium [Moles/Vol] 141 mmol/L Normal 133-145 [facility] Comment on above: Performed By: #### L 3890.6301, L500.4050, L3890.6102, L100.0100, L4500.0100, L400.2010, L3890.6202, L501.0900 #### [facility] [address] [place], [address] T PROT 7.0 g/dL Normal 5.9-8.4 [facility] Comment on above: Performed By: #### L 3890.6301, L500.4050, L3890.6102, L100.0100, L4500.0100, L400.2010, L3890.6202, L501.0900 #### [facility] [address] [place], [address] Urea nitrogen [Mass/Vol] 15 mg/dL Normal 4-19 [facility] Comment on above: Performed By: #### L 3890.6301, L500.4050, L3890.6102, L100.0100, L4500.0100, L400.2011, L3890.6202, L501.0900 #### [facility] [address] [place], [place], [id number] Dilute Luis Daniel's viper venom timeOrdered By: Lashanda Kapoor on 05-17-2025 dRVVT Coag (PPP) [Time] 46.4 s 0.0-47.0 [facility] EXAGENon 05-17-2025 EXAGEN MAILED SPECIMEN Normal [facility] Comment on above: Performed By: #### L 3890.6301, L500.4050, L3890.6102, L100.0100, L4500.0100, L400.2010, L3890.6202, L501.0900 #### [facility] [address] [place], [place], [id number] Eosinophil percentageOrdered By: Lashanda Kapoor on 05-17-2025 Eosinophils/100 WBC (Bld) 2.2 % 0-5 [facility] Erythrocyte distribution wid th ratioOrdered By: Lashanda Antwon on 05-17-2025 Erythrocyte distribution width (RBC) [Ratio] 12.3 % 11.6-14.6 [facility] Erythrocyte distribution wid th standard deviationOrdered By: Lashanda Kapoor on 05-17-2025 Erythrocyte distribution width (RBC) [Ratio] 41.9 fl 35.1-43.9 [facility] Glomerular filtration rate ( GFR) estimation/1.73 sq m using serum, plasma, or whole bOrdered By: Lashanda Kapoor on 05-17-2025 GFR/1.73 sq M.predicted among non-blacks MDRD (S/P/Bld) [Vol rate/Area] 93 mL/min/{1.73_m2} >60 [facility] Comment on above: mL/min/1.73m2 CKD-EP I Creatinine Equation (2020) Hematocrit Auto (Bld) [Volum e fraction]Ordered By: Lashanda Kapoor on 05-17-2025 Hematocrit (Bld) [Volume fraction] 38.8 % 37-47 [facility] Hemoglobin measurementOrdere d By: Lashanda Kapoor on 05-17-2025 Hemoglobin (Bld) [Mass/Vol] 13.1 g/dL 12.0-15.0 [facility] Hepatitis B Surface Antibody on 05-17-2025 HEP B Surf Ab Indetermin Normal [facility] Comment on above: Result Comment: <8.5 mIU/mL: Non-Reactive 8.5<= x <11.5 mIU/mL: Indeterminate >=11.5 mIU/mL: Reactive Non Reactive: Inconsistent with immunity less than <10 mIU/mL Reactive: Consistent with immunity greater than or equal to 10 mIU/mL Performed By: #### L 3890.6301, L500.4050, L3890.6102, L100.0100, L4500.0100, L400, L3890.6202, L501.0900 #### [facility] [address] [place], [place], [address] Hepatitis C Antibodyon 05-17 Hepatitis C Ab Non-Reactive Normal Nonreactive [facility] Comment on above: Result Comment: Reac tive: Presumptive evidence of antibodies to HCV. Follow CDC recommendations for supplemental testing. Non-Reactive: Antibodies to HCV were not detected; does not exclude the possibility of exposure to HCV Reactive Results are presumptive evidence of antibodies to HCV. Follow CDC recommendations for supplemental testing. Order confirmation testing: HCV Quant by PCR testing - HCVPCR #[id number] Non Reactive: < 0.8 Equivocal: >/= 0.8 to < 1.0 Reactive: >/= 1.0 The CDC requires that a reactive/equivocal HCV antibody result be sent out for confirmation. HCV Quant by PCR testing. Performed By: #### L 3890.6301, L500.4050, L3890.6102, L100.0100, L4500.0100, L400.2010, L3890.6202, L501.0900 #### [facility] [address], [place], [id number] Immature granulocytes/100 WB C Auto (Bld)Ordered By: Lashanda Kapoor on 05-17-2025 Immature granulocytes/100 WBC (Bld) 0.300 % 0.0-0.9 [facility] Comment on above: IG% - Immature Granu locytes (promyelocytes, myelocytes and metamyelocytes) > 1% indicates that a LEFT SHIFT is Present. Ketones Test strip Ql (U)Ord ered By: Lashanda Kapoor on 05-17-2025 Ketones Ql (U) Negative Negative [facility] L3890.6102on 05-17-2025 HEP B Surf Ag Non-Reactive Normal Nonreactive [facility] Comment on above: Result Comment: Reac tive: Presumptive evidence of HBV. Repeatedly reactive samples must be confirmed using a neutralization test ([employer] HBsAg Confirmatory Test) Non-Reactive: HBsAg not detected; does not exclude the possibility of exposure to HBV Performed By: #### L 3890.6301, L500.4050, L3890.6102, L100.0100, L4500.0100, L400.2011, L3890.6202, L501.0900 #### [facility] [address] [place], [place], [address] Laboratory - Chemistry and C hemistry - challengeOrdered By: Lashanda Kapoor on 05-17-2025 AST [Catalytic activity/Vol] 26 U/L <32 [facility] - Microbiology an d Antimicrobial susceptibilityOrdered By: Lashanda Kapoor on 05-17-2025 HBV surface Ag Ql (S) Non-Reactive Nonreactive [facility] Comment on above: Reactive: Presumptiv e evidence of HBV. Repeatedly reactive samples must be confirmed using a neutralization test ([employer] HBsAg Confirmatory Test)Non-Reactive: HBsAg not detected; does not exclude the possibility of exposure to HBV MCV (mean corpuscular volume ) determinationOrdered By: Lashanda Kapoor on 05-17-2025 MCV (RBC) [Entitic vol] 92.4 fL 81-99 [facility] Mean corpuscular hemoglobin (MCH) determinationOrdered By: Lashanda Kapoor on 05-17-2025 MCH (RBC) [Entitic mass] 31.2 pg 27.0-32.0 [facility] Mean corpuscular hemoglobin concentration (MCHC) determinationOrdered By: Lashanda Kapoor on 05-17-2025 MCHC (RBC) [Mass/Vol] 33.8 g/dL 32-36 [facility] Mean platelet volume determi nationOrdered By: Lashanda Kapoor on 05-17-2025 Platelet mean volume (Bld) [Entitic vol] 10.1 fL 6.2-12.0 [facility] Monocyte percentageOrdered B y: Lashanda Kapoor on 05-17-2025 Monocytes/100 WBC (Bld) 7.6 % 0-10 [facility] Neutrophil percentageOrdered By: Lashanda Kapoor on 05-17-2025 Neutrophils/100 WBC (Bld) 66.5 % 47-70 [facility] Nitrite Test strip Ql (U)Ord ered By: Lashanda Kapoor on 05-17-2025 Nitrite Ql (U) Negative Negative [facility] Nucleated red blood cell per centageOrdered By: Lashanda Kapoor on 05-17-2025 Nucleated RBC/100 WBC (Bld) [Ratio] 0 % 0-5 [facility] Platelet countOrdered By: Franklin Kapoor on 05-17-2025 Platelets (Bld) [#/Vol] 247 10*3/uL 150-450 [facility] Potassium measurement (mass/ volume)Ordered By: Lashanda Kapoor on 05-17-2025 Potassium (Unsp spec) [Mass/Vol] 4.0 mmol/L 3.3-5.1 [facility] Protein Test strip Ql (U)Ord ered By: Lashanda Kapoor on 05-17-2025 Protein Ql (U) 30 mg/dl High Negative [facility] Protein+Creatinine Ratio,Uri neon 05-17-2025 PROT:CRE RATIO 171 mg/g CRE Normal 0-200 [facility] Comment on above: Performed By: #### L 3890.6301, L500.4050, L3890.6102, L100.0100, L4500.0100, L400.2010, L3890.6202, L501.0900 #### [facility] [address] [place], [address] Protein (U) [Mass/Vol] 52.8 mg/dL High 0.0-12.0 [facility] Comment on above: Performed By: #### L 3890.6301, L500.4050, L3890.6102, L100.0100, L4500.0100, L400.2010, L3890.6202, L501.0900 #### [facility] [address] [place], [address] UR CREAT 308.00 mg/dL High 28.00-217.00 [facility] Comment on above: Performed By: #### L 3890.6301, L500.4050, L3890.6102, L100.0100, L4500.0100, L400.2010, L3890.6202, L501.0900 #### [facility] [address] [place], [address] RBC Auto (Bld) [#/Vol]Ordere d By: Lashanda Kapoor on 05-17-2025 RBC (Bld) [#/Vol] 4.20 10*6/uL 4.2-5.4 [facility] Random urine creatinine kip urement (mass/volume)Ordered By: Lashanda Kapoor on 05-17-2025 Creatinine Unsp time (U) [Mass/Vol] 308.00 mg/dL High 28.00-217.00 [facility] Serum creatinine measurement (mass/volume)Ordered By: Lashanda Kapoor on 05-17-2025 Creatinine [Mass/Vol] 0.79 mg/dL 0.70-1.20 [facility] Serum globulin measurementOr dered By: Lashanda Kapoor on 05-17-2025 Globulin (S) [Mass/Vol] 2.9 g/dL 2.2-4.2 [facility] Serum glucose measurement (m ass/volume)Ordered By: Lashanda Kapoor on 05-17-2025 Glucose [Mass/Vol] 94 mg/dL 70-99 [facility] Serum hepatitis B virus surf adan antibody detectionOrdered By: Lashanda Kapoor on 05-17-2025 HBV surface Ab Ql (S) Indetermin [facility] Comment on above: <8.5 mIU/mL: Non-Marily ctive8.5<= x <11.5 mIU/mL: Indeterminate>=11.5 mIU/mL: Reactive Non Reactive: Inconsistent with immunity less than <10 mIU/mL Reactive: Consistent with immunity greater than or equal to 10 mIU/mL Serum or plasma alanine borjas otransferase (ALT) measurementOrdered By: Lashanda Kapoor on 05-17-2025 ALT [Catalytic activity/Vol] 39 U/L High <35 [facility] Serum or plasma albumin kip urement (mass/volume)Ordered By: Lashanda Kapoor on 05-17-2025 Albumin [Mass/Vol] 4.1 g/dL 3.5-5.0 [facility] Serum or plasma albumin/glob ulin mass ratioOrdered By: Lashanda Kapoor on 05-17-2025 Albumin/Globulin [Mass ratio] 1.4 {ratio} 0.9-2.4 [facility] Serum or plasma alkaline linda sphatase measurementOrdered By: Lashanda Kapoor on 05-17-2025 ALP [Catalytic activity/Vol] 44 U/L 35-104 [facility] Serum or plasma calcium kip urement (mass/volume)Ordered By: Lashanda Kapoor on 05-17-2025 Calcium [Mass/Vol] 9.0 mg/dL 7.6-11.0 [facility] Serum or plasma urea nitroge n measurement (mass/volume)Ordered By: Lashanda Kapoor on 05-17-2025 Urea nitrogen [Mass/Vol] 15 mg/dL 4-19 [facility] Sodium levelOrdered By: Dahlia Kapoor on 05-17-2025 Sodium [Moles/Vol] 141 mmol/L 133-145 [facility] Thrombin timeOrdered By: Mady Kapoor on 05-17-2025 Thrombin time Coag (PPP) [Time] 21.7 sec 0.0-23.0 [facility] Total proteinOrdered By: Mady Kapoor on 05-17-2025 Protein [Mass/Vol] 7.0 g/dL 5.9-8.4 [facility] Urinalysis, Routine (Dipstic k)on 05-17-2025 BILIRUBIN URINE Negative Normal Negative [facility] Comment on above: Order Comment: CLEAN CATCH Performed By: #### L 3890.6301, L500.4050, L3890.6102, L100.0100, L4500.0100, L400.2011, L3890.6202, L501.0900 #### [facility] [address] [place], [address] Clarity (U) Cloudy Normal Clear [facility] Comment on above: Order Comment: CLEAN CATCH Performed By: #### L 3890.6301, L500.4050, L3890.6102, L100.0100, L4500.0100, L400.2010, L3890.6202, L501.0900 #### [facility] [address] [place], [address] Color (U) Yellow Normal Yellow [facility] Comment on above: Order Comment: CLEAN CATCH Performed By: #### L 3890.6301, L500.4050, L3890.6102, L100.0100, L4500.0100, L400.2010, L3890.6202, L501.0900 #### [facility] [address] [place], [address] GLUCOSE, UR Normal Normal Normal [facility] Comment on above: Order Comment: CLEAN CATCH Performed By: #### L 3890.6301, L500.4050, L3890.6102, L100.0100, L4500.0100, L400.2010, L3890.6202, L501.0900 #### [facility] [address] [place], [address] KETONE UR Negative Normal Negative [facility] Comment on above: Order Comment: CLEAN CATCH Performed By: #### L 3890.6301, L500.4050, L3890.6102, L100.0100, L4500.0100, L400.2011, L3890.6202, L501.0900 #### [facility] [address] [place], [address] LEUK ESTERASE 500 /ul Abnormal Negative [facility] Comment on above: Order Comment: CLEAN CATCH Performed By: #### L 3890.6301, L500.4050, L3890.6102, L100.0100, L4500.0100, L400.2010, L3890.6202, L501.0900 #### [facility] [address] [place], [address] Nitrite Ql (U) Negative Normal Negative [facility] Comment on above: Order Comment: CLEAN CATCH Performed By: #### L 3890.6301, L500.4050, L3890.6102, L100.0100, L4500.0100, L400.2010, L3890.6202, L501.0900 #### [facility] [address] [place], [address] OCCULT BLOOD-UR 25 /ul Abnormal Negative [facility] Comment on above: Order Comment: CLEAN CATCH Performed By: #### L 3890.6301, L500.4050, L3890.6102, L100.0100, L4500.0100, L400.2010, L3890.6202, L501.0900 #### [facility] [address] [place], [address] pH UR 6.0 Normal 5.0 - 8.0 [facility] Comment on above: Order Comment: CLEAN CATCH Performed By: #### L 3890.6301, L500.4050, L3890.6102, L100.0100, L4500.0100, L400.2010, L3890.6202, L501.0900 #### [facility] [address] [place], [address] PROT DIPSTX 30 mg/dl Abnormal Negative [facility] Comment on above: Order Comment: CLEAN CATCH Performed By: #### L 3890.6301, L500.4050, L3890.6102, L100.0100, L4500.0100, L400.2011, L3890.6202, L501.0900 #### [facility] [address] [place], [address] SP.GR. DIPSTX 1.025 Normal 1.002-1.030 [facility] Comment on above: Order Comment: CLEAN CATCH Performed By: #### L 3890.6301, L500.4050, L3890.6102, L100.0100, L4500.0100, L400.2010, L3890.6202, L501.0900 #### [facility] [address] [place], [address] UROBILI Normal Normal Normal [facility] Comment on above: Order Comment: CLEAN CATCH Performed By: #### L 3890.6301, L500.4050, L3890.6102, L100.0100, L4500.0100, L400.2010, L3890.6202, L501.0900 #### [facility] [address] [place], [address] Urine clarityOrdered By: Mady Kapoor on 05-17-2025 Clarity (U) Cloudy Clear [facility] Urine color determinationOrd ered By: Lashanda Kapoor on 05-17-2025 Color (U) Yellow Yellow [facility] Urine glucose detectionOrder ed By: Lashanda Kapoor on 05-17-2025 Glucose Ql (U) Normal mg/dl Normal [facility] Urine leukocyte esterase det ection by dipstickOrdered By: Lashanda Kapoor on 05-17-2025 Leukocyte esterase Test strip Ql (U) 500 /ul High Negative [facility] Urine pHOrdered By: Lashanda Minor llanki on 05-17-2025 pH (U) 6.0 [pH] 5.0 - 8.0 [facility] Urine protein measurement (m ass/volume)Ordered By: Lashanda Kapoor on 05-17-2025 Protein (U) [Mass/Vol] 52.8 mg/dL High 0.0-12.0 [facility] Urine protein/creatinine mas s ratioOrdered By: Lashanda Kapoor on 05-17-2025 Protein/Creatinine (U) [Mass ratio] 171 mg/g CRE 0-200 [facility] Urine specific gravity measu rementOrdered By: Lashanda Kapoor on 05-17-2025 Specific gravity (U) [Rel density] 1.025 1.002-1.030 [facility] Urine urobilinogen measureme ntOrdered By: Lashanda Kapoor on 05-17-2025 Urobilinogen Ql (U) Normal mg/dl Normal [facility] White blood cell (WBC) count Ordered By: Lashanda Kapoor on 05-17-2025 WBC (Bld) [#/Vol] 6.9 10*3/uL 4.4-11.0 [facility] RFon 05-04-2025 Rheumatoid Factor <6.0 Normal <=5.9 [facility] Comment on above: Result Comment: RF I [...] tests. These results were obtained with the [employer] QUANTA Lite RF IgM BE. RF IgM values obtained with different manufacturers' assay methods may not be used interchangeably. The magnitude of the reported IgM levels cannot be correlated to an endpoint titer. Performed By: #### V IDH, 474393, CRP, ANAIFS, CMP, 710515, ANEU, ESR, FE, ADIFF, URIC, CBC, IBC, FERR, GFR #### [address] [address] #### RF, B12 #### [place] [address] ANAIFSon 05-03-2025 Antinuclear Ab Pattern Nuclear dense fin e speckled Normal [facility] Comment on above: Result Comment: Perf ormed By: [place] [address] Cylinder Tester: Brayden Sanabria III, M.D. CLIA#: [id number] Performed By: #### V IDH, 525232, CRP, ANAIFS, CMP, 067751, ANEU, ESR, FE, ADIFF, URIC, CBC, IBC, FERR, GFR #### [place] [address] #### RF, B12 #### [place] [address] Antinuclear Ab Screen Positive Abnormal Negative [facility] Comment on above: Result Comment: Anti -nuclear antibody test is used as an aid in diagnosis of systemic autoimmune diseases. Where positive and clinically warranted, follow-up using disease-specific testing is recommended. Low positive titers are not uncommon with advanced age, certain chronic infections, and malignancies among others. Test methodology: Indirect fluorescence immunoassay (IFA) using HEp-2 cells. Performed By: [facility] [employer] [address] [place] [address] Cylinder Tester: Brayden Sanabria III, M.D. CLIA#: [id number] Performed By: #### V IDH, 519288, CRP, ANAIFS, CMP, 132517, ANEU, ESR, FE, ADIFF, URIC, CBC, IBC, FERR, GFR #### [place] [address] #### RF, B12 #### [place] [address] Antinuclear Ab Titer 1:160 Normal [facility] Comment on above: Result Comment: Perf ormed By: [facility] [employer] [address] [place] [address] Cylinder Tester: Brayden Sanabria III, M.D. CLIA#: [id number] Performed By: #### V IDH, 023329, CRP, ANAIFS, CMP, 211939, ANEU, ESR, FE, ADIFF, URIC, CBC, IBC, FERR, GFR #### [address] [address] #### RF, B12 #### [place] [id number] B12on 05-01-2025 Cobalamin (Vitamin B12) [Mass/Vol] 466 pg/mL Normal 211-911 [facility] Comment on above: Performed By: #### V IDH, 178015, CRP, ANAIFS, CMP, 168503, ANEU, ESR, FE, ADIFF, URIC, CBC, IBC, FERR, GFR #### [place] [address] #### RF, B12 #### [place] [address] LMERLYon 05-01-2025 Lyme Total Antibody [place] Negative Normal Negative [facility] Comment on above: Result Comment: Lyme antibodies not detected. Reflex testing is not indicated. No laboratory evidence of infection with B. burgdorferi (Lyme disease). Negative results may occur in patients recently infected (less than or equal to 14 days) with B. burgdorferi. If recent infection is suspected, repeat testing on a new sample collected in 7 to 14 days is recommended. Performed At: [address] [id number] Michelle Sylvester PhD Ph:[phone] Performed By: #### V IDH, 760660, CRP, ANAIFS, CMP, 739798, ANEU, ESR, FE, ADIFF, URIC, CBC, IBC, FERR, GFR #### [place] [address] #### RF, B12 #### [place] [address] THYCASon 05-01-2025 TSH 1.660 uIU/mL Normal 0.450-4.500 [facility] Comment on above: Result Comment: No a pparent thyroid disorder. Additional testing not indicated. In rare instances, Secondary Hypothyroidism as well as Subclinical Hypothyroidism have been reported in some patients with normal TSH values. Performed At: [facility] [place] [address] [place], [place] [id number] Michelle Sylvester PhD Ph:[phone] Performed By: #### V IDH, 907576, CRP, ANAIFS, CMP, 908163, ANEU, ESR, FE, ADIFF, URIC, CBC, IBC, FERR, GFR #### [place] [address] #### RF, B12 #### [address] [address] .Auto Diffon 04-30-2025 Basophil, Absolute 0.0 10 3/mcL Normal 0.0-0.3 [facility] Comment on above: Performed By: #### V IDH, 448533, CRP, ANAIFS, CMP, 584396, ANEU, ESR, FE, ADIFF, URIC, CBC, IBC, FERR, GFR #### [place] [address] #### RF, B12 #### [address] [address] Basophils/100 WBC (Bld) 0.4 % Normal 0.0-2.5 [facility] Comment on above: Performed By: #### V IDH, 967458, CRP, ANAIFS, CMP, 798059, ANEU, ESR, FE, ADIFF, URIC, CBC, IBC, FERR, GFR #### [address] [address] #### RF, B12 #### [address] [address] Eosinophil, Absolute 0.1 10 3/mcL Normal 0.0-0.7 [facility] Comment on above: Performed By: #### V IDH, 617596, CRP, ANAIFS, CMP, 772122, ANEU, ESR, FE, ADIFF, URIC, CBC, IBC, FERR, GFR #### [place] [address] #### RF, B12 #### [address] [address] Eosinophils/100 WBC (Bld) 1.5 % Normal 0.0-6.0 [facility] Comment on above: Performed By: #### V IDH, 639343, CRP, ANAIFS, CMP, 727059, ANEU, ESR, FE, ADIFF, URIC, CBC, IBC, FERR, GFR #### [address] [address] #### RF, B12 #### [address] [address] Lymphocyte, Absolute 1.2 10 3/mcL Normal 0.9-4.3 [facility] Comment on above: Performed By: #### V IDH, 621047, CRP, ANAIFS, CMP, 399844, ANEU, ESR, FE, ADIFF, URIC, CBC, IBC, FERR, GFR #### [address] [address] #### RF, B12 #### [address] [address] Lymphocytes/100 WBC (Bld) 22.8 % Normal 20.0-40.0 [facility] Comment on above: Performed By: #### V IDH, 730845, CRP, ANAIFS, CMP, 560997, ANEU, ESR, FE, ADIFF, URIC, CBC, IBC, FERR, GFR #### [address] [address] #### RF, B12 #### [address] [address] Monocyte, Absolute 0.4 10 3/mcL Normal 0.1-1.4 [facility] Comment on above: Performed By: #### V IDH, 730032, CRP, ANAIFS, CMP, 611885, ANEU, ESR, FE, ADIFF, URIC, CBC, IBC, FERR, GFR #### [address] [address] #### RF, B12 #### [address] [address] Monocytes/100 WBC (Bld) 7.5 % Normal 2.0-13.0 [facility] Comment on above: Performed By: #### V IDH, 801988, CRP, ANAIFS, CMP, 425157, ANEU, ESR, FE, ADIFF, URIC, CBC, IBC, FERR, GFR #### [address] [address] #### RF, B12 #### [address] [address] Neutrophils/100 WBC (Bld) 67.8 % Normal 50.0-75.0 [facility] Comment on above: Performed By: #### V IDH, 547046, CRP, ANAIFS, CMP, 042670, ANEU, ESR, FE, ADIFF, URIC, CBC, IBC, FERR, GFR #### [address] [address] #### RF, B12 #### [address] [address] .GFRon 04-30-2025 Estimated Glomerular Filtration Rate 73 ml/min/1.73sqm Normal [facility] Comment on above: Result Comment: Stages of [...] calculate the eGFR results. Performed By: #### V IDH, 747068, CRP, ANAIFS, CMP, 002053, ANEU, ESR, FE, ADIFF, URIC, CBC, IBC, FERR, GFR #### [address] [address] #### RF, B12 #### [address] [address] .NEUABSon 04-30-2025 Neutrophil, Absolute 3.7 10 3/mcL Normal 2.3-8.1 [facility] Comment on above: Performed By: #### V IDH, 766088, CRP, ANAIFS, CMP, 120133, ANEU, ESR, FE, ADIFF, URIC, CBC, IBC, FERR, GFR #### [address] [address] #### RF, B12 #### [address] [address] CBCon 04-30-2025 Erythrocyte distribution width (RBC) [Ratio] 12.9 % Normal 11.5-15.5 [facility] Comment on above: Performed By: #### V IDH, 168685, CRP, ANAIFS, CMP, 156996, ANEU, ESR, FE, ADIFF, URIC, CBC, IBC, FERR, GFR #### [address] [address] #### RF, B12 #### [address] [address] Hematocrit (Bld) [Volume fraction] 41.1 % Normal 34.0-46.0 [facility] Comment on above: Performed By: #### V IDH, 176726, CRP, ANAIFS, CMP, 556678, ANEU, ESR, FE, ADIFF, URIC, CBC, IBC, FERR, GFR #### [address] [address] #### RF, B12 #### [address] [address] Hgb 14.0 G/dL Normal 12.0-16.0 [facility] Comment on above: Performed By: #### V IDH, 819306, CRP, ANAIFS, CMP, 990953, ANEU, ESR, FE, ADIFF, URIC, CBC, IBC, FERR, GFR #### [address] [address] #### RF, B12 #### [address] [address] MCH (RBC) [Entitic mass] 31.2 pg Normal 27.0-33.0 [facility] Comment on above: Performed By: #### V IDH, 280950, CRP, ANAIFS, CMP, 400707, ANEU, ESR, FE, ADIFF, URIC, CBC, IBC, FERR, GFR #### [address] [address] #### RF, B12 #### [address] [address] MCHC 34.0 G/dL Normal 32.0-36.0 [facility] Comment on above: Performed By: #### V IDH, 110456, CRP, ANAIFS, CMP, 760316, ANEU, ESR, FE, ADIFF, URIC, CBC, IBC, FERR, GFR #### [address] [address] #### RF, B12 #### [address] [address] MCV (RBC) [Entitic vol] 91.9 fL Normal 80.0-99.0 [facility] Comment on above: Performed By: #### V IDH, 079094, CRP, ANAIFS, CMP, 480658, ANEU, ESR, FE, ADIFF, URIC, CBC, IBC, FERR, GFR #### [address] [address] #### RF, B12 #### [address] [address] Platelet 225 10 3/mcL Normal 150-450 [facility] Comment on above: Performed By: #### V IDH, 676051, CRP, ANAIFS, CMP, 416826, ANEU, ESR, FE, ADIFF, URIC, CBC, IBC, FERR, GFR #### [address] [address] #### RF, B12 #### [address] [address] Platelet mean volume (Bld) [Entitic vol] 8.4 fL Normal 6.6-10.5 [facility] Comment on above: Performed By: #### V IDH, 806080, CRP, ANAIFS, CMP, 741343, ANEU, ESR, FE, ADIFF, URIC, CBC, IBC, FERR, GFR #### [address] [address] #### RF, B12 #### [address] [address] RBC 4.47 10 6/mcL Normal 4.10-5.30 [facility] Comment on above: Performed By: #### V IDH, 441323, CRP, ANAIFS, CMP, 999601, ANEU, ESR, FE, ADIFF, URIC, CBC, IBC, FERR, GFR #### [address] [address] #### RF, B12 #### [place] [address] WBC 5.5 10 3/mcL Normal 4.5-10.8 [facility] Comment on above: Performed By: #### V IDH, 134855, CRP, ANAIFS, CMP, 225482, ANEU, ESR, FE, ADIFF, URIC, CBC, IBC, FERR, GFR #### [address] [address] #### RF, B12 #### [place] [address] CMPon 04-30-2025 Albumin Level 3.4 G/dL Low 3.5-5.0 [facility] Comment on above: Performed By: #### V IDH, 297480, CRP, ANAIFS, CMP, 631572, ANEU, ESR, FE, ADIFF, URIC, CBC, IBC, FERR, GFR #### [address] [address] #### RF, B12 #### [place] [address] Albumin/Globulin [Mass ratio] 0.9 {ratio} Low 1.1-2.5 [facility] Comment on above: Performed By: #### V IDH, 927276, CRP, ANAIFS, CMP, 274647, ANEU, ESR, FE, ADIFF, URIC, CBC, IBC, FERR, GFR #### [address] [address] #### RF, B12 #### [address] [address] ALP [Catalytic activity/Vol] 49 U/L Normal 40-135 [facility] Comment on above: Performed By: #### V IDH, 246734, CRP, ANAIFS, CMP, 399019, ANEU, ESR, FE, ADIFF, URIC, CBC, IBC, FERR, GFR #### [place] [address] #### RF, B12 #### [place] [address] ALT [Catalytic activity/Vol] 27 U/L Normal 14-59 [facility] Comment on above: Performed By: #### V IDH, 320466, CRP, ANAIFS, CMP, 691043, ANEU, ESR, FE, ADIFF, URIC, CBC, IBC, FERR, GFR #### [place] [address] #### RF, B12 #### [place] [address] AST [Catalytic activity/Vol] 16 U/L Normal 10-40 [facility] Comment on above: Performed By: #### V IDH, 583882, CRP, ANAIFS, CMP, 910092, ANEU, ESR, FE, ADIFF, URIC, CBC, IBC, FERR, GFR #### [place] [address] #### RF, B12 #### [place] [address] Bili Total 0.7 mg/dL Normal 0.2-1.0 [facility] Comment on above: Result Comment: Use of this assay is not recommended for patients undergoing treatment with eltrombopag due to the potential for falsely elevated results. Performed By: #### V IDH, 809814, CRP, ANAIFS, CMP, 910336, ANEU, ESR, FE, ADIFF, URIC, CBC, IBC, FERR, GFR #### [address] [address] #### RF, B12 #### [address] [address] BUN/Creatinine Ratio 17 ratio Normal 7-27 [facility] Comment on above: Performed By: #### V IDH, 422925, CRP, ANAIFS, CMP, 732195, ANEU, ESR, FE, ADIFF, URIC, CBC, IBC, FERR, GFR #### [address] [address] #### RF, B12 #### [address] [address] Calcium [Mass/Vol] 8.6 mg/dL Normal 8.4-10.2 [facility] Comment on above: Performed By: #### V IDH, 959350, CRP, ANAIFS, CMP, 937893, ANEU, ESR, FE, ADIFF, URIC, CBC, IBC, FERR, GFR #### [address] [address] #### RF, B12 #### [address] [address] Chloride [Moles/Vol] 107 mmol/L Normal 98-107 [facility] Comment on above: Performed By: #### V IDH, 009079, CRP, ANAIFS, CMP, 978141, ANEU, ESR, FE, ADIFF, URIC, CBC, IBC, FERR, GFR #### [address] [address] #### RF, B12 #### [address] [address] CO2 [Moles/Vol] 27 mmol/L Normal 22-29 [facility] Comment on above: Performed By: #### V IDH, [id number], CRP, ANAIFS, CMP, [id number], ANEU, ESR, FE, ADIFF, URIC, CBC, IBC, FERR, GFR #### [address] [address] #### RF, B12 #### [address] [address] Creatinine [Mass/Vol] 0.96 mg/dL High 0.51-0.95 [facility] Comment on above: Performed By: #### V IDH, [id number], CRP, ANAIFS, CMP, [id number], ANEU, ESR, FE, ADIFF, URIC, CBC, IBC, FERR, GFR #### [address] [address] #### RF, B12 #### [address] [address] Electrolyte Balance 8.0 mEq/L Normal 4.0-15.0 [facility] Comment on above: Performed By: #### V IDH, [id number], CRP, ANAIFS, CMP, [id number], ANEU, ESR, FE, ADIFF, URIC, CBC, IBC, FERR, GFR #### [place] [address] #### RF, B12 #### [address] [address] Globulin 3.9 G/dL Normal 2.7-4.4 [facility] Comment on above: Performed By: #### V IDH, 815097, CRP, ANAIFS, CMP, 185435, ANEU, ESR, FE, ADIFF, URIC, CBC, IBC, FERR, GFR #### [address] [address] #### RF, B12 #### [address] [address] Glucose [Mass/Vol] 97 mg/dL Normal 70-105 [facility] Comment on above: Performed By: #### V IDH, 439917, CRP, ANAIFS, CMP, 680177, ANEU, ESR, FE, ADIFF, URIC, CBC, IBC, FERR, GFR #### [address] [address] #### RF, B12 #### [address] [address] Potassium [Moles/Vol] 3.7 mmol/L Normal 3.5-5.1 [facility] Comment on above: Performed By: #### V IDH, 241509, CRP, ANAIFS, CMP, 732036, ANEU, ESR, FE, ADIFF, URIC, CBC, IBC, FERR, GFR #### [address] [address] #### RF, B12 #### [place] [address] Sodium [Moles/Vol] 142 mmol/L Normal 136-145 [facility] Comment on above: Performed By: #### V IDH, 198124, CRP, ANAIFS, CMP, 260988, ANEU, ESR, FE, ADIFF, URIC, CBC, IBC, FERR, GFR #### [address] [address] #### RF, B12 #### [place] [address] Total Protein 7.3 G/dL Normal 6.4-8.2 [facility] Comment on above: Performed By: #### V IDH, 138741, CRP, ANAIFS, CMP, 724117, ANEU, ESR, FE, ADIFF, URIC, CBC, IBC, FERR, GFR #### [address] [address] #### RF, B12 #### [place] [address] Urea nitrogen [Mass/Vol] 16 mg/dL Normal 7-18 [facility] Comment on above: Performed By: #### V IDH, 612025, CRP, ANAIFS, CMP, 639078, ANEU, ESR, FE, ADIFF, URIC, CBC, IBC, FERR, GFR #### [address] [address] #### RF, B12 #### [place] [address] CRPon 04-30-2025 C-Reactive Protein 0.8 mg/dL High 0.0-0.3 [facility] Comment on above: Performed By: #### V IDH, 347868, CRP, ANAIFS, CMP, 620051, ANEU, ESR, FE, ADIFF, URIC, CBC, IBC, FERR, GFR #### [address] [address] #### RF, B12 #### [address] [address] ESRon 04-30-2025 Erythrocyte Sed Rate 27 mm/hr High 0-20 [facility] Comment on above: Performed By: #### V IDH, 590789, CRP, ANAIFS, CMP, 236617, ANEU, ESR, FE, ADIFF, URIC, CBC, IBC, FERR, GFR #### [address] [address] #### RF, B12 #### [address] [address] FEon 04-30-2025 Iron [Mass/Vol] 53 ug/dL Normal 50-170 [facility] Comment on above: Performed By: #### V IDH, 365201, CRP, ANAIFS, CMP, 140466, ANEU, ESR, FE, ADIFF, URIC, CBC, IBC, FERR, GFR #### [address] [address] #### RF, B12 #### [address] [address] Luis 04-30-2025 Ferritin [Mass/Vol] 430.0 ng/mL High 8.0-252.0 [facility] Comment on above: Performed By: #### V IDH, 649688, CRP, ANAIFS, CMP, 837756, ANEU, ESR, FE, ADIFF, URIC, CBC, IBC, FERR, GFR #### [address] [address] #### RF, B12 #### [address] [address] IBCon 04-30-2025 TIBC 259 mcg/dL Normal 250-450 [facility] Comment on above: Performed By: #### V IDH, 458888, CRP, ANAIFS, CMP, 246272, ANEU, ESR, FE, ADIFF, URIC, CBC, IBC, FERR, GFR #### [place] [address] [place], [place] [address] #### RF, B12 #### [address] [address] LABORATORYOrdered By: SYSTEM SYSTEM on 04-30-2025 25-hydroxyvitamin [...] MCH (RBC) [Entitic mass] 31.2 pg Normal 27. 0 - 33.0 pg AO Workflow SS MCHC [...] [Mass/Vol] 16 mg/dL Normal 7 - 18 mg/d L AO ADM SS Urea nitrogen/Creatinine [Mass ratio] [...] 6.2 mg/dL Normal 2.6-6.2 [facility] Comment on above: Performed By: #### V IDH, 453224, CRP, ANAIFS, CMP, 990443, ANEU, ESR, FE, ADIFF, URIC, CBC, IBC, FERR, GFR #### [place] [address] #### RF, B12 #### [place] [address] VIDHon 04-30-2025 Vit. D 25-Hydroxy 31.0 ng/mL Normal [facility] Comment on above: Result Comment: Inte rpretive Values Based on Total 25(OH) Vitamin D: Deficient <20 ng/mL Insufficient 20 - <30 ng/mL Sufficient 30-100 ng/mL Performed By: #### V IDH, 018034, CRP, ANAIFS, CMP, 419280, ANEU, ESR, FE, ADIFF, URIC, CBC, IBC, FERR, GFR #### [place] [address] #### RF, B12 #### [place] [address] CNOVon 12-21-2024 CNOV Office Visit (GENSWS) ---- TAMEKA ALLAN ([id number]) 1975 F Date Time Provider Department 12/21/24 8:00 AM LUDY LEE During your visit today, we recorded the following information about you: Ludy Lee APRN.CNP 12/21/2024 8:18 AM Signed FOLLOW UP VISIT - ENDOSCOPY Tameka Allan 1975 [id number] REFERRING PHYSICIAN: No referring provider defined for [...] as needed for worsening/no improvement. Ludy Lee APRN.CNP Allergies As of Date: 12/21/2024 Noted Allergy Reaction SEASONAL ALLERGIES 05/23/2017 3 - Cough Date Reviewed: 12/21/2024 Reviewed by: Ludy Lee APRN.SUPERVISOR CUTTING AND SEWING ROOM - Fully Assessed Reason for Visit: Follow Up [171] Primary Visit Diagnosis:Hyperplas tic polyp of ascending colon [K63.5] Prescriptions as of 12/21/2024 - tirzepatide (MOUNJARO) 15 mg/0.5 mL pen injector Inject 15 mg subcutaneously one time a week. - CPAP/BIPAP/OTHER AutoPAP 5-20 cmH2O Mask per patient preference Lifetime supplies Dx: HALIMA - levonorgestrel (LILETTA) 20.1 mcg/24 hrs (6 yrs) 52 mg IUD 1 Each by INTRAUTERINE route as directed. put in at [facility] Problem List As Of Date 12/21/2024 Noted [...] [E11.9] Class 3 severe obesity with serious comorbidity* 024 Encounter Status:Closed by LUDY LEE on 12/21/24 [facility] [id number] 12-13-2024 [id number] HNO ID: [id number] Author: CUCA FERGUSON RN Service: ? Author Type: Registered Nurse Type: [id number] Filed: 12/13/2024 08:36 Note Text: The patient received a copy of Colonoscopy discharge instructions that contain information for how to contact the physician who performed the procedure and when to seek medical care. Normal [facility] Colonoscopyon 12-13-2024 [facility] Patient Name: Tameka Allan Procedure [...] be scheduled. Procedure Code(s): --- Professional --- 64694, Colonoscopy, flexible; with removal of tumor(s), polyp(s), or other lesion(s) by snare technique G0500, Moderate sedation services provided by the same physician or other qualified health patient centered care specialist performing a gastrointestinal endoscopic service that sedation supports, requiring the presence of an independent trained observer to assist in the monitoring of the patient's level of consciousness and physiological status; initial 15 minutes of intra-service time; patient age 5 years or older (additional time may be reported with 12050, as appropriate) Diagnosis Code(s): --- Professional --- Z12.11, Encounter for screening for malignant neoplasm of colon Z80.0, Family history of malignant neoplasm of digestive organs D12.4, Benign neoplasm of descending colon K64.8, Other hemorrhoids CPT copyright 2020 [employer]. All rights reserved. The codes documented in this report are preliminary and upon oval or circular glass cutter review may be revised to meet current compliance requirements. Attending Participation: I personally performed the entire procedure. Scope In: 8:06:39 AM Scope Out: 8:22:13 AM MD Rico Fenton MD 12/13/2024 8:27:23 AM This report has been signed electronically by Rico Clifford MD Number of Addenda: 0 Note Initiated On: 12/13/2024 7:42 AM Estimated Blood Loss: Estimat (more content not included)... Normal [facility] Colonoscopy Study observatio non 12-13-2024 [facility] Gastrointestinal Endoscopy Patient Name: Tameka Allan Procedure [...] be scheduled. Procedure Code(s): --- Professional --- 79579, Colonoscopy, flexible; with removal of tumor(s), polyp(s), or other lesion(s) by snare technique G0500, Moderate sedation services provided by the (more content not included)... PROVATION [facility] Radiology Study observation (narrative) [facility] HISTORY PHYSICALon HISTORY PHYSICAL HNO ID: [id number] Author: RICO CLIFFORD MD Service: General Surgery [...] colonoscopy was 12/[address] Hanna at [facility]. Sedation:Fentanyl 100 micrograms IV, Midazolam 5 [...] INTRAUTERINE route as directed. put in at [facility] peg 3350-Electrolytes (GOLYTELY) 236-22.74-6.74 -5.86 gram suspension Take 4,000 mL by mouth one time only for 1 dose. Refer to printed prep instructions from your provider. No current facility-administer ed medications for this visit. ALLERGIES: Seasonal Allergies [...] 82 in Colon Cancer Father passed in 1984 in [...] in father (more content not included)... Normal [facility] Pathology biopsy report Ajith (Tiss)on 12-13-2024 AP DISCLAIMER Normal [facility] Comment on above: Order Comment: Speci men Type: TISSUE SPECIMEN Ordering Facility: [facility] Address: [address] [place], [place] [address] Result Comment: Meredith ortiz Developed Test (LDT) Disclaimer: Performance characteristics of immunohistochemical, immunofluorescent, and chromogenic in-situ hybridization tests have been determined by the performing laboratory within [facility]'s Adal Bhardwaj Pathology and Laboratory Medicine Department ([facility], [facility], [facility], [facility], [facility], [facility], [facility], or [facility]) in a manner consistent with CLIA requirements. One or more of these tests may not have been cleared or approved by the FDA. RT-PLM is regulated under CLIA as qualified to perform high-complexity testing. These tests are used for clinical purposes. These should not be regarded as investigational or for research. Positive and negative controls stain appropriately. Performed By: #### 6 6121-5 #### [facility] CLIA [id number] [address] [place] [address] OF [facility] CLIA [id number] [address] [place] [address] STATES OF [place] CASE REPORT Normal [facility] Comment on above: Order Comment: Speci men Type: TISSUE SPECIMEN Ordering Facility: [facility] Address: [address] [place] [address] Result Comment: Surg [facility] Pathology Report Case: [id number] Authorizing Provider: Rico Clifford MD Collected: 12/13/2024 08:16 AM Ordering Location: Ambulatory Surgery Received: 12/13/2024 12:19 PM Pathologist: Jamel Padilla MD Specimen: Colon, Descending, Polyp Performed By: #### 6 6121-5 #### [facility] CLIA [id number] [address] [place] [address] LAB CLIA [id number] [address] [place] [address] FINAL DIAGNOSIS Normal [facility] Comment on above: Order Comment: Norisi navid Type: TISSUE SPECIMEN Ordering Facility: [facility] Address: [address] [place] [address] Result Comment: A. A scending colon, polypectomy: - Focal changes suggestive of hyperplastic polyp. - Negative for dysplasia. at 1247 EST Performed By: #### 6 6121-5 #### [facility] CLIA [id number] [address] [place] [address] OF [place] [facility] CLIA [id number] [address] [place] [address] OF [facility] FINAL PERFORMING LAB Normal [facility] Comment on above: Order Comment: Speci men Type: TISSUE SPECIMEN Ordering Facility: [facility] Address: [address] [place] [address] Result Comment: Diag nostic interpretation performed at: [facility], [address] [place] [address] CLIA# [id number] Etcher Apprentice: Tameka Larson MD Performed By: #### 6 6121-5 #### [facility] CLIA [id number] [address] [place] [address] STATES OF [facility] CLIA [id number] [address] [place] [address] STATES OF [place] GROSS DESCRIPTION Normal [facility] Comment on above: Order Comment: Speci men Type: TISSUE SPECIMEN Ordering Facility: [facility] Address: [address] [place] [address] Result Comment: Riri villanueva, Descending, Polyp Received in formalin are two pieces of bundy, soft tissue aggregating to 0.9 x 0.2 x 0.1 cm. Totally submitted in one cassette. DB December 13, 2024 5:33 PM Gross examination performed at [facility], [address] [place] [address] Performed By: #### 6 6121-5 #### [facility] CLIA [id number] [address] [place] [address] OF [place] [facility] CLIA [id number] [address] [place] [address] OF [place] CNOVon 11-11-2024 CNOV Office Visit (HEMBAK) ---- TAMEKA ALLAN ([id number]) 1975 F Date Time Provider Department 11/11/24 1:30 PM SHANIQUE JACINTO During your visit today, we recorded the following information about you: Pulse Blood pressure Weight Height 76/minute 106/71 103 kg 1.664 alexander Subha Milton LPN 12/20/2024 9:06 PM Signed Tameka Allan is a 48 year old female who presents to follow up for Yearly Exam (CBE) and Results Pt denies breast pain, redness, left breast nipple drainage and palpable masses. Pt c/o muscle spasms of right back and right shoulder. Pt to discuss massages. CORDELL Palumbo Amy, APRN.CAMILLA 12/20/2024 9:06 PM Signed Shanique Jacinto APRN-CAMILLA, OCN Breast [facility] [address] [place], [place] [id number] Date of Visit: 11/11/2024 Patient Name: Tameka Allan Date of : 1975 Established Visit Breast Surgeon: Sade Wesley MD Medical Oncologist: Janna Hay MD SUBJECTIVE Chief Complaint: Patient presents with: Yearly Exam: CBE Results HPI Tameka Allan is a 48 year old female who presents today for review of recent (11/08/2024) annual breast imaging and clinical breast exam. She is an established [facility] patient and was last seen in [...] invasive poorly differentiated carcinoma. ER negative / MD negative / HER2 negative by FISH Clinical [...] INTRAUTERINE route as directed. put in at [facility] 1 Intra Uterine Device 0 tirzepatide (MOUNJARO) 15 mg/0.5 mL pen injector Inject 15 mg subcutaneously one time a week. 2 mL 2 No current facility-administer ed medications for this visit. I have performed [...] Cancer Patern (more content not included)... Normal [facility] CNOVon 11-08-2024 CNOV Office Visit (GENSWS) ---- JERRELLTAMKEA Franco ([id number]) 1975 F Date Time Provider Department 11/08/24 9:30 AM LUDY LEE During your visit today, we recorded the following information about you: Temperature Pulse Respiration Blood pressure 97.1 degrees 78/minute 17/minute 118/76 Weight Height 103.2 kg 1.664 m Ludy Lee APRN.SUPERVISOR CUTTING AND SEWING ROOM 11/08/2024 9:47 AM Signed HISTORY AND PHYSICAL [...] colonoscopy was 12/[address] Hanna at [facility]. Sedation:Fentanyl 100 micrograms IV, Midazolam 5 [...] INTRAUTERINE route as directed. put in at [facility] peg 3350-Electrolytes (GOLYTELY) 236-22.74-6.74 -5.86 gram suspension Take 4,000 mL by mouth one time only for 1 dose. Refer to printed prep instructions from your provider. No current facility-administer ed medications for this visit. ALLERGIES: Seasonal Allergies [...] MAST MODF RAD W/AX LYMPH NOD W/WO PECT/AEBLARDO MIN Right 02/05/2016 SALPINGECTOMY COMPLETE/PARTIAL UNI/BI SPX 06/22/2020 bilateral salpingectomy, sterilization, IUD insertion FAMILY HISTORY Problem Relation Age of Onset Hypertension Mother 80 in 24 Colon Cancer Father passed in 1983 in [...] palpable hernias (more content not included)... Normal [facility] SCREENING W TOMOon 11-08 [facility] SCREENING W CHANCE * * *Final Report* * * DATE OF EXAM: Nov 08 2024 1:28PM RICHIE 0582 - [facility] SCREENING W CHANCE / PROCEDURE REASON: Visit for screening mammogram * * * * Physician Interpretation * * * * [facility] [address] [facility] [place] [address] #[id number] - [facility] SCREENING W CHANCE HISTORY: Patient is 48 [...] D Mayfield M.D. Electronically signed on: 11/09/2024 Geotechnical Engineer: CONCHIS Transcribe Date/Time: Nov 08 2024 1:11P Dictated by : MARIA D MAYFIELD MD This examination was interpreted and the report reviewed and electronically signed by: MARIA D MAYFIELD MD on Nov 09 2024 6:59AM EST [id number] Normal [facility] PT D/C Summary (1)on [facility] PT D/C Summary (1) [facility] Physical Therapy [facility] [address] [place] [address] [address] [place] [id number] / REHABILITATION SERVICES DISCHARGE SUMMARY MR#: [id number] Acct: [id number] Name: TAMEKA ALLAN Rep #: [id number] : 1975 48 From: Agusto Thurman PT, Cert. T, [facility] Referring DrJacki: ROBERTO CARLOS Fountain Status: REG RCR Insurance: [employer] SELF PAY INSURANCE Discharge Summary D/C summary: [...] shoulders head forward PALAPTION: unremarkable NEURO: denies paresthesia/tinglin g AROM: shoulder flexion 155 degrees ,abduction 160 [...] please feel free to call me at [phone]. Thank you for the referral of this patient. Sincerely, Agusto Thurman, PT, Cert MDT, OCS Balance/Gait/Functi onal tests Balance/Special Test Scores Quick DASH Score: 4.5450 Improvement % Improvement: 60 09/07/24 1039 CC: PROJECT CONTROLS SCHEDULER-C Zainab Fountain JLA Signed Normal [facility] Inital Evaluation (1) - PTon 07-30-2024 Inital Evaluation (1) - PT [facility] Physical Therapy [address] [place] [address] / REHABILITATION SERVICES INITIAL EVALUATION MR#: [id number] Acct: [id number] Name: TAMEKA ALLAN Rep #: [id number] : 1975 48 From: Agusto Thurman PT, Cert. T, OCS Referring DrJacki: Zainab Fountani NP-C Status: REG RCR Insurance: [employer] SELF PAY INSURANCE Patient's Visit Information Visit Information Visit Information: TAMEKA ALLAN is a 48 year old F referred to Physical Therapy by ROBERTO CARLOS Reilly with a diagnosis of LEFT SHOULDER PAIN. Date of Evaluation: 07/30/24 Physical Therapist: Agusto Thurman PT, Cert MDT, OCS Visit Plan Frequency: 2x /Week Duration: 4 Weeks Plan: PT INTERVENTIONS RTC/SCAPULAR STRENGTHENING ,POSTURAL EX'S ,ROM AND MODALTIES PRN Subjective Subjective: This 48 y/o female presents to physical therapy for left shoulder pain. Patient has had intermittent left lateral shoulder pain for [address] robb PT. No imaging .Patient pain is intermittent OH and eccentric lowering affects ADL 's and housework tasks.Patient pain occasionally sleeping. Patient denies paresthesia/tinglin g. Pain described as dull ache. Patient has not tried to work out.Patient condition affects QOL and function/housework tasks. Patient goals to decrease pain. SOCIAL: single VOCATION:[employer] Pain Left Shoulder: Pain Intensity (Out of 10): 2 Pain Intensity Range: 10 Objective Objective: POSTURE: rounded shoulders head forward PALAPTION: unremarkable NEURO: denies paresthesia/tinglin g AROM: shoulder flexion 140 degrees ,abduction 150 [...] to perform ADL's, To increase tolerance to activity/condition/ position, To improve ability of physical actions for home/community/work /leisure, To improve health of tissue, To decrease soft tissue restriction, To increase flexibility/ROM, To improve balance, To reduce risk of recurrence and To prevent re-injury Therapeutic Exercise to Include: Strength training, Postural training, Flexibilty training, Active ROM and Scapular Strength/Stabilizat ion Comment: RTC For the Purpose of:: To decrease pain, To increase ROM, To improve muscle performance and motor function, To improve ability to perform ADL's, To improve ability of physical actions for home/ community/work/leis ure, To improve health of tissue, To decrease [...] to be FAXED BACK to us at [phone] for Medicare purposes. For Medicare only, by signing this I certify the plan of care. Please let me know if there are questions or concerns regarding this plan of care. Physician Signature: __Date: (more content not included)... Normal [facility] LABORATORYOrdered By: SYSTEM SYSTEM on 07-27-2024 Albumin [...] calculated value from Hemoglobin A1C and is territory service representative of the average blood glucose level in [...] MCH (RBC) [Entitic mass] 31.8 pg Normal 27. 0 - 33.0 pg AO Workflow SS MCHC [...] [Mass/Vol] 12 mg/dL Normal 7 - 18 mg/d L AO ADM SS Urea nitrogen/Creatinine [Mass ratio] [...] [Mass/Vol] 172 mg/dL High 0 - 150 mg/d L AO ADM SS Comment on above: Interpretive Data: T riglyceride Reference Interval: Less than 150 Normal 150-199 Borderline high risk 200-499 High risk 500 or higher Very high risk CNPNon 04-23-2024 CNPN Telephone ([facility]) ---- TAMEKA ALLAN ([id number]) 1975 F Date Time Provider Department 04/23/24 BILLIE LOZOYA [facility] During your visit today, we recorded the following information about you: Brittney Bonilla 04/23/2024 3:06 PM Signed Message Received: Today Billie Lozoya MD [facility] Admin Pool Patient needs letter for 30-90 day confirmation letter for insurance. Brittney Bonilla 04/23/2024 3:06 PM Signed Today's OV faxed to Ramana Zapien directly from [facility] Brittney Bonilla Allergies As of [...] INTRAUTERINE route as directed. put in at [facility] Problem List As Of Date 04/23/2024 Noted [...] [E11.9] Class 3 severe obesity with serious comorbidity* 024 Encounter Status:Closed by BRITTNEY BONILLA on 04/23/24 [facility] Tatianna 03-29-2024 CAMILLAN Telephone ([facility]) ---- TAMEKA [id number]) 1975 F Date Time Provider Department 03/29/24 BILLIE LOZOYA [facility] During your visit today, we recorded the following information about you: Mague Otto 03/29/2024 2:13 PM Signed Order for PAP supplies signed and faxed back to [facility]. Mague Eva Allergies As of Date: 03/29/2024 Noted Allergy Reaction SEASONAL ALLERGIES 05/23/2017 16 - Unknown Date Reviewed: 02/09/2024 Reviewed by: Lenore Morelos, SYDNEE.SUPERVISOR CUTTING AND SEWING ROOM - Fully Assessed Reason for Visit: FYI-No [...] INTRAUTERINE route as directed. put in at [facility] Problem List As Of Date 03/29/2024 Noted [...] [E11.9] Class 3 severe obesity with serious comorbidity* 024 Encounter Status:Closed by MAGUE OTTO on 03/29/24 Normal [facility] .Auto Diffon 07-21-2023 Basophil, Absolute 0.1 10 3/mcL Normal 0.0-0.2 [facility] [place] Comment on above: Performed By: #### G FR, TSH, ADIFF, ANEU, CBC, LIPID, CMP #### [address] [address] Basophils/100 WBC (Bld) 0.7 % Normal 0.0-2.5 A [facility] ([place]) Comment on above: Performed By: #### G FR, TSH, ADIFF, ANEU, CBC, LIPID, CMP #### [address] [address] Eosinophil, Absolute 0.2 10 3/mcL Normal 0.0-0.4 [facility] ([place]) Comment on above: Performed By: #### G FR, TSH, ADIFF, ANEU, CBC, LIPID, CMP #### [address] [address] Eosinophils/100 WBC (Bld) 2.2 % Normal 0.0-7.0 [facility] ([place]) Comment on above: Performed By: #### G FR, TSH, ADIFF, ANEU, CBC, LIPID, CMP #### [address] [address] Lymphocyte, Absolute 2.6 10 3/mcL Normal 0.8-3.9 [facility] ([place]) Comment on above: Performed By: #### G FR, TSH, ADIFF, ANEU, CBC, LIPID, CMP #### [address] [address] Lymphocytes/100 WBC (Bld) 28.0 % Normal 10.0-50.0 [facility] ([place]) Comment on above: Performed By: #### G FR, TSH, ADIFF, ANEU, CBC, LIPID, CMP #### [address] [address] Monocyte, Absolute 0.6 10 3/mcL Normal 0.2-1.0 [facility] ([place]) Comment on above: Performed By: #### G FR, TSH, ADIFF, ANEU, CBC, LIPID, CMP #### [address] [address] Monocytes/100 WBC (Bld) 6.5 % Normal 1.7-13.0 A [facility] ([place]) Comment on above: Performed By: #### G FR, TSH, ADIFF, ANEU, CBC, LIPID, CMP #### [address] [address] Neutrophils/100 WBC (Bld) 62.6 % Normal 37.0-80.0 [facility] ([place]) Comment on above: Performed By: #### G FR, TSH, ADIFF, ANEU, CBC, LIPID, CMP #### [address] [address] .GFRon 07-21-2023 GFR 83 ml/min/1.73sqm Normal [facility] ([place] Comment on above: Result Comment: GFR Population [...] TSH, ADIFF, ANEU, CBC, LIPID, CMP #### [address] [address] GFR Non- 69 ml/min/1.73sqm Normal [facility] ([place] Comment on above: Result Comment: GFR Population [...] TSH, ADIFF, ANEU, CBC, LIPID, CMP #### [address] [address] .NEUABSon 07-21-2023 Neutrophil, Absolute 5.8 10 3/mcL Normal 2.9-6.2 [facility] ([place] Comment on above: Performed By: #### G FR, TSH, ADIFF, ANEU, CBC, LIPID, CMP #### [address] [address] CBCon 07-21-2023 Erythrocyte distribution width (RBC) [Ratio] 13.0 % Normal 11.5-14.5 [facility] ([place] Comment on above: Performed By: #### G FR, TSH, ADIFF, ANEU, CBC, LIPID, CMP #### [address] [address] Hematocrit (Bld) [Volume fraction] 43.6 % Normal 37.0-47.0 [facility] ([place] Comment on above: Performed By: #### G FR, TSH, ADIFF, ANEU, CBC, LIPID, CMP #### [address] [address] Hgb 14.7 G/dL Normal 12.0-16.0 [facility] ([place] Comment on above: Performed By: #### G FR, TSH, ADIFF, ANEU, CBC, LIPID, CMP #### [address] [address] MCH (RBC) [Entitic mass] 31.0 pg Normal 27.0-31.2 [facility] ([place] Comment on above: Performed By: #### G FR, TSH, ADIFF, ANEU, CBC, LIPID, CMP #### [address] [address] MCHC 33.7 G/dL Normal 33.0-37.0 [facility] ([place] Comment on above: Performed By: #### G FR, TSH, ADIFF, ANEU, CBC, LIPID, CMP #### [address] [address] MCV (RBC) [Entitic vol] 92.0 fL Normal 80.0-94.0 A [facility] ([place]) Comment on above: Performed By: #### G FR, TSH, ADIFF, ANEU, CBC, LIPID, CMP #### [address] [address] Platelet 269 10 3/mcL Normal 130-400 [facility] ([place] Comment on above: Performed By: #### G FR, TSH, ADIFF, ANEU, CBC, LIPID, CMP #### [address] [address] Platelet mean volume (Bld) [Entitic vol] 8.4 fL Normal 7.4-10.4 [facility] ([place] Comment on above: Performed By: #### G FR, TSH, ADIFF, ANEU, CBC, LIPID, CMP #### [address] [address] RBC 4.74 10 6/mcL Normal 4.20-5.40 [facility] ([place] Comment on above: Performed By: #### G FR, TSH, ADIFF, ANEU, CBC, LIPID, CMP #### [address] [address] WBC 9.3 10 3/mcL Normal 4.6-10.8 [facility] ([place] Comment on above: Performed By: #### G FR, TSH, ADIFF, ANEU, CBC, LIPID, CMP #### [address] [address] CMPon 10-09-2023 Albumin Level 3.7 G/dL Normal 3.5-5.0 [facility] ([place] Comment on above: Performed By: #### G FR, TSH, ADIFF, ANEU, CBC, LIPID, CMP #### [address] [address] Albumin/Globulin [Mass ratio] 1.0 {ratio} Low 1.1-2.5 [facility] ([place] Comment on above: Performed By: #### G FR, TSH, ADIFF, ANEU, CBC, LIPID, CMP #### [address] [address] ALP [Catalytic activity/Vol] 45 U/L Normal 40-135 [facility] ([place] Comment on above: Performed By: #### G FR, TSH, ADIFF, ANEU, CBC, LIPID, CMP #### [address] [address] ALT [Catalytic activity/Vol] 42 U/L Normal 14-59 [facility] ([place] Comment on above: Performed By: #### G FR, TSH, ADIFF, ANEU, CBC, LIPID, CMP #### [address] [address] AST [Catalytic activity/Vol] 18 U/L Normal 10-40 [facility] ([place] Comment on above: Performed By: #### G FR, TSH, ADIFF, ANEU, CBC, LIPID, CMP #### [address] [address] Bili Total 0.6 mg/dL Normal 0.2-1.0 [facility] ([place] Comment on above: Result Comment: Use of this assay is not recommended for patients undergoing treatment with eltrombopag due to the potential for falsely elevated results. Performed By: #### G FR, TSH, ADIFF, ANEU, CBC, LIPID, CMP #### [address] [address] BUN/Creatinine Ratio 9 ratio Normal 7-27 [facility] [place] Comment on [place]: Performed By: #### G FR, TSH, ADIFF, ANEU, CBC, LIPID, CMP #### [address] [address] Calcium [Mass/Vol] 9.2 mg/dL Normal 8.4-10.2 [facility] ([place] Comment on above: Performed By: #### G FR, TSH, ADIFF, ANEU, CBC, LIPID, CMP #### [address] [address] Chloride [Moles/Vol] 101 mmol/L Normal 98-107 [facility] [place] Comment on above: Performed By: #### G FR, TSH, ADIFF, ANEU, CBC, LIPID, CMP #### [address] [address] CO2 [Moles/Vol] 32 mmol/L High 22-29 [facility] ([place] Comment on above: Performed By: #### G FR, TSH, ADIFF, ANEU, CBC, LIPID, CMP #### [address] [address] Creatinine [Mass/Vol] 0.89 mg/dL Normal 0.55-1.02 [facility] ([place]) Comment on above: Performed By: #### G FR, TSH, ADIFF, ANEU, CBC, LIPID, CMP #### [address] [address] Electrolyte Balance 4.0 mEq/L Normal 4.0-15.0 [facility] ([place] Comment on above: Performed By: #### G FR, TSH, ADIFF, ANEU, CBC, LIPID, CMP #### [address] [address] Globulin 3.8 G/dL Normal [facility] ([place] Comment on above: Performed By: #### G FR, TSH, ADIFF, ANEU, CBC, LIPID, CMP #### [address] [address] Glucose [Mass/Vol] 83 mg/dL Normal 70-105 [facility] ([place] Comment on above: Performed By: #### G FR, TSH, ADIFF, ANEU, CBC, LIPID, CMP #### [address] [address] Potassium [Moles/Vol] 4.4 mmol/L Normal 3.5-5.1 [facility] ([place]) Comment on above: Performed By: #### G FR, TSH, ADIFF, ANEU, CBC, LIPID, CMP #### [address] [address] Sodium [Moles/Vol] 137 mmol/L Normal 136-145 [facility] ([place] Comment on above: Performed By: #### G FR, TSH, ADIFF, ANEU, CBC, LIPID, CMP #### [address] [address] Total Protein 7.5 G/dL Normal 6.4-8.2 [facility] ([place] Comment on above: Performed By: #### G FR, TSH, ADIFF, ANEU, CBC, LIPID, CMP #### [address] [address] Urea nitrogen [Mass/Vol] 8 mg/dL Normal 7-18 [facility] ([place] Comment on above: Performed By: #### G FR, TSH, ADIFF, ANEU, CBC, LIPID, CMP #### [address] [address] LIPIDon 07-21-2023 Cholesterol [Mass/Vol] 196 mg/dL Normal 0-200 [facility] ([place] Comment on above: Result Comment: Chol esterol Reference Interval: Less than 200 Desirable 200-239 Borderline high risk 240 and above High risk Performed By: #### G FR, TSH, ADIFF, ANEU, CBC, LIPID, CMP #### [address] [address] Cholesterol in HDL [Mass/Vol] 45 mg/dL Normal 40-60 [facility] ([place] Comment on above: Performed By: #### G FR, TSH, ADIFF, ANEU, CBC, LIPID, CMP #### [address] [address] Cholesterol in LDL [Mass/Vol] 122 mg/dL Normal 0-130 [facility] ([place] Comment on above: Performed By: #### G FR, TSH, ADIFF, ANEU, CBC, LIPID, CMP #### [address] [address] Triglyceride [Mass/Vol] 146 mg/dL Normal 0-150 A [facility] ([place]) Comment on above: Result Comment: Trig lyceride Reference Interval: Less than 150 Normal 150-199 Borderline high risk 200-499 High risk 500 or higher Very high risk Performed By: #### G FR, TSH, ADIFF, ANEU, CBC, LIPID, CMP #### [place] [id number] [place], [place] [address] TSHon 07-21-2023 TSH Qn 1.61 m[IU]/L Normal 0.36-3.74 [facility] ([place] Comment on above: Performed By: #### G FR, TSH, ADIFF, ANEU, CBC, LIPID, CMP #### [address] [address] [place] SCREENING W TOMOon 11-06 [facility] ANES POSTPROC EVALon 022 ANES POSTPROC EVAL HNO ID: [id number] Author: Chinmay Raya MD Service: Anesthesiology Author Type: Anesthesiologist Type: Anesthesia Postprocedure Evaluation Filed: 08/28/2022 10:37 AM Note Text: POST ANESTHESIA EVALUATION NOTE : 1975 Procedure Summary Date: 08/28/22 Room / Location: [place] [address] / [place] Anesthesia Start: 830 Anesthesia Stop: 1024 Procedure: LAPAROSCOPIC CHOLECYSTECTOMY (Abdomen) [...] August 28, 2022 TIME: 10:36 AM CSN: [id number] [facility] ANES PRE-OPon 08-28-2022 ANES PRE-OP HNO ID: [id number] Author: Chinmay Raya MD Service: Anesthesiology Author Type: Anesthesiologist Type: Anesthesia Preprocedure Evaluation Filed: 08/28/2022 7:27 AM Note Text: ANESTHESIOLOGY DAY OF SURGERY NOTE : 1975 Procedure Information Date/Time: 08/28/22829 Procedure: LAPAROSCOPIC CHOLECYSTECTOMY WITH GRAMS Location: [place] [address] / [place] Surgeons: Rico Clifford MD Estimated body [...] (97.2 ?F) 08/28/22722 SpO2 95 % 08/28/22722 Facility-Administer ed Medications as of 08/28/2022 Medication Dose Route [...] INTRAUTERINE route as directed. put in at [facility] - calcium-vitamin D3-vitamin K 500 mg-1,000 unit-40 mcg chew Take by mouth once daily. I have interviewed and examined the patient. I have reviewed the medical record and/or the pre-anesthesia evaluation, pertinent labs, and test results. This contains updated information obtained within 48 hours of Surgery/Procedure. SIGNATURE: Chinmay Raya MD PATIENT NAME: Tameka Allan DATE: August 28, 2022 TIME: 7:27 AM CSN: [id number] Normal [facility] HISTORY PHYSICALon HISTORY PHYSICAL HNO ID: [id number] Author: Rico Clifford MD Service: General Surgery Author Type: Physician Type: HANDP Filed: 08/28/2022 8:16 AM Note Text: HISTORY AND PHYSICAL Tameka Allan 1975 REFERRING PHYSICIAN: Zainab Fountain (Qual Field Manager), * CHIEF COMPLAINT: Consult (RUQ pain, Ultra [...] INTRAUTERINE route as directed. put in at [facility] 1 Intra Uterine Device 0 calcium-vitamin D3-vitamin K 500 mg-1,000 unit-40 mcg chew Take by mouth once daily. No current facility-administer ed medications for this visit. ALLERGIES: No Known [...] entered by the nurse and reviewed by co Nursing Notes: Lenore Mirza LPN 08/02/2022 8:20 [...] urine. Skin: T (more content not included)... [facility] OPERATIVE NOon 08-28-2022 OPERATIVE NO HNO ID: [id number] Author: Rico Clifford MD Service: General Surgery Author Type: Physician Type: Operative Report Filed: 08/28/2022 10:07 AM Note Text: OPERATIVE/PROCEDURE REPORT LOG ID: [id number] SURGERY/PROCEDURE DATE: 08/28/2022 INCISION/PROCEDURE START TIME: 8:55 AM INCISION CLOSE/PROCEDURE END TIME: 10:05 AM SURGEON(S)/PROCEDUR ALIST(S) AND POTATO CHIP COOKER MACHINE(S): Surgeon(s) and Role: * Rico Clifford MD - Primary Physician Detail Assembler: Whitney Bruce PA-C; Maria Guadalupe Bhandari PA-C SURGERY/PROCEDURE(S ): Laparoscopic cholecystectomy ANESTHESIA: General SURGERY/PROCEDURE DETAILS: Patient [...] procedure well. Whitney Bruce PA-C was my phlebotomist medical lab assistant. She assisted with retraction, visualization and performed skin closure. No additional surgeons or qualified residents were available. PRE-OP/PRE-PROCEDUR E DIAGNOSIS: Chronic cholecystitis with cholelithiasis without obstruction POST-OP/POST-PROCED URE DIAGNOSIS: Same as Preop ESTIMATED BLOOD LOSS: < 15 mls SPECIMENS: Gallbladder IMPLANTABLE DEVICES: NONE DRAINS: None COMPLICATIONS: None PARTICIPATION IN SURGERY/PROCEDURE: I/primary surgeon/procedurali st performed the procedure with assistance. SIGNATURE: Rico Clifford III, MD PATIENT NAME: Tameka Allan DATE: August 28, 2022 TIME: 9:55 AM [facility] SURGICAL PATHOLOGYon 022 CASE REPORT Normal [facility] Comment on above: Order Comment: Speci men Type: TISSUE SPECIMEN Ordering Facility: [facility] Address: [address] [place], [place] [id number] Result Comment: Surg [facility] Pathology Report Case: [id number] Authorizing Provider: Rico Clifford MD Collected: 08/28/2022 09:02 AM Ordering Location: [facility] Surgery Received: 08/28/2022 10:36 AM Pathologist: Dara Asencio MD Specimen: GALLBLADDER Performed By: #### S #### [facility] CLIA [id number] [address] [place] [address] OF [facility] CLINICAL HISTORY Normal [facility] Comment on above: Order Comment: Speci men Type: TISSUE SPECIMEN Ordering Facility: [facility] Address: [address] [place] [id number] Result Comment: Pre- op diagnosis: Calculus of gallbladder with cholecystitis of other acuity without obstruction [K80.18] RUQ pain [R10.11] Performed By: #### S #### [facility] CLIA [id number] [address] [place] [address] OF [place] FINAL DIAGNOSIS Normal [facility] Comment on above: Order Comment: Norisi navid Type: TISSUE SPECIMEN Ordering Facility: [facility] Address: [address] [place] [address] Result Comment: A. G allbladder, cholecystectomy:- Chronic cholecystitis with cholesterolosis and cholelithiasis. - Two benign lymph nodes. SE/MT 08/30/2022 Performed By: #### S #### [facility] CLIA [id number] [address] [place] [address] FINAL PERFORMING LAB [facility] Comment on above: Order Comment: Hugo shoemaker Type: TISSUE SPECIMEN Ordering Facility: [facility] Address: [address] [place] [address] Result Comment: Diag nostic interpretation performed at [place] [address] CLIA# [id number] Etcher Apprentice: Brayden Sanabria M.D. Performed By: #### S #### [facility] CLIA [id number] [address] [place] [address] GROSS DESCRIPTION A. GALLBLADDER Normal [facility] Comment on above: Order Comment: Hugo shoemaker Type: TISSUE SPECIMEN Ordering Facility: [facility] Address: [address] [place] [address] Result Comment: Rece ived in formalin labeled gallbladder is a gallbladder measuring 8.1 x 3.6 x 3.4 cm. The serosal surface is smooth and glistening. The lumen contains thick viscous bile. The wall averages 0.1 cm in thickness. The mucosa is bile-stained and demonstrates longitudinally oriented yellow streaks more prominent on the segments of the ridges of the mucosa. Multiple bundy-green firm calculi are present ranging from 0.6 to 5.5 cm in greatest dimension. The cystic duct is not impacted. Adjacent to the cystic duct are 2 lymph nodes measuring 0.4 and 0.7 cm in greatest dimension. Gas Plumbing Inspector sections are submitted in formalin in cassette A1. Gross examination performed at [facility], [address] [place] [id number] [facility] 08/28/22 2:01 PM Performed By: #### S #### [facility] CLIA [id number] [facility] [facility] [place] [id number] [place] SCREENINGon 11-03-2020 [place] SCREENING Final Report DATE OF EXAM: Nov 03 2020 11:30AM AAW [id number] - [facility] SCREENING / PROCEDURE REASON: Breast screening Physician Interpretation #[id number] - [facility] SCREENING BILATERAL DIGITAL SCREENING MAMMOGRAM WITH CAD: 11/03/2020 HISTORY: Breast Screening Routine screening mammogram. Patient reports no breast problems. RESULT: TECHNIQUE: The study was acquired using full field digital technology and interpreted from soft copy. Current study was also evaluated with a Computer Aided Detection (CAD). Comparison is made to exams dated: 09/14/2019 mammogram, 09/10/2018 mammogram, 09/02/2017 mammogram, and 08/15/2016 mammogram - [facility]. There are scattered fibroglandular elements in both breasts. No significant masses, calcifications, or other findings are seen in either breast. There has been no significant interval change. IMPRESSION: NEGATIVE There is no mammographic evidence of malignancy. A 1 year screening mammogram is recommended. Norm weston/rosangela: 13:07:33 Nurse Aide(s): Eladia Barahona(Madhav)(M), [facility] letter sent: Normal over 40 Mammogram BI-RADS: [...] Health, Family Medicine, and Medical/Surgical Oncology, the [facility] has carefully reviewed the data and reached [...] their providers when to stop screening mammograms. Geotechnical Engineer: Rosangela Salamancaribe Date/Time: Nov 03 2020 11:29A Dictated by : NORM LAW MD This examination was interpreted and the report reviewed and electronically signed by: NORM LAW MD on Nov 03 2020 1:07PM EST Normal [facility] Vital Signs Date Time Vital Sign Value Performing Clinician Enrique aleman 06-06-2025 09:27-0400 Body height 166.4 cm Lenore Hasenstasasha FASHION MARKETER.SUPERVISOR CUTTING AND SEWING ROOM Work Phone: [facility] 06-06-2025 09:27-0400 Body mass index (BMI) [Ratio] 35.59 kg/m2 Lenore Hasenstaub FASHION MARKETER.SUPERVISOR CUTTING AND SEWING ROOM Work Phone: [facility] 06-06-2025 09:27-0400 Body weight 98.52 kg Lenore Hasenstaub FASHION MARKETER.SUPERVISOR CUTTING AND SEWING ROOM Work Phone: [facility] 06-06-2025 09:27-0400 Diastolic blood pressure 70 mm[Hg] Lenore Hasenstaub FASHION MARKETER.SUPERVISOR CUTTING AND SEWING ROOM Work Phone: [facility] 06-06-2025 09:27-0400 Heart rate 77 /min Lenore Hasenstaub FASHION MARKETER.SUPERVISOR CUTTING AND SEWING ROOM Work Phone: [facility] 06-06-2025 09:27-0400 Systolic blood pressure 102 mm[Hg] Lenore Hasenstaub FASHION MARKETER.SUPERVISOR CUTTING AND SEWING ROOM Work Phone: [facility] 02-09-2025 07:42-0400 Body height 166.4 cm Lenore Hasenstaub FASHION MARKETER.SUPERVISOR CUTTING AND SEWING ROOM Work Phone: [facility] 02-09-2025 07:42-0400 Body mass index (BMI) [Ratio] 36.58 kg/m2 Lenore Hasenstaub FASHION MARKETER.SUPERVISOR CUTTING AND SEWING ROOM Work Phone: [facility] 02-09-2025 07:42-0400 Body weight 101.24 kg Lenore Hasenstaub FASHION MARKETER.SUPERVISOR CUTTING AND SEWING ROOM Work Phone: [facility] 12-13-2024 08:57-0500 Heart rate 69 /min Rico Clifford MD Work Phone: [facility] 12-13-2024 08:57-0500 Respiratory rate 16 /min Rico Clifford MD Work Phone: [facility] 12-13-2024 08:57-0500 SaO2% (BldA) [Mass fraction] 96 % Rico Clifford MD Work Phone: [facility] 12-13-2024 08:47-0500 Diastolic blood pressure 57 mm[Hg] Rico Clifford MD Work Phone: [facility] 12-13-2024 08:47-0500 Systolic blood pressure 119 mm[Hg] Rico Clifford MD Work Phone: [facility] 12-13-2024 07:38-0500 Body temperature 97.2 [degF] Rico Clifford MD Work Phone: [facility] 11-11-2024 13:34-0500 Body height 166.4 cm Shanique Jacinto FASHION MARKETER.SUPERVISOR CUTTING AND SEWING ROOM Work Phone: [facility] 11-11-2024 13:34-0500 Body mass index (BMI) [Ratio] 37.2 kg/m2 Shanique Brad FASHION MARKETER.SUPERVISOR CUTTING AND SEWING ROOM Work Phone: [facility] 11-11-2024 13:34-0500 Body weight 102.97 kg Shanique Jacinto FASHION MARKETER.SUPERVISOR CUTTING AND SEWING ROOM Work Phone: [facility] 11-11-2024 13:34-0500 Diastolic blood pressure 71 mm[Hg] Shanique Daleyova FASHION MARKETER.SUPERVISOR CUTTING AND SEWING ROOM Work Phone: [facility] 11-11-2024 13:34-0500 Heart rate 76 /min Shanique Daleyova FASHION MARKETER.SUPERVISOR CUTTING AND SEWING ROOM Work Phone: [facility] 11-11-2024 13:34-0500 Systolic blood pressure 106 mm[Hg] Shanique Jacinto FASHION MARKETER.SUPERVISOR CUTTING AND SEWING ROOM Work Phone: [facility] 11-08-2024 09:22-0500 Body height 166.4 cm Ludy Javier FASHION MARKETER.SUPERVISOR CUTTING AND SEWING ROOM Work Phone: [facility] 11-08-2024 09:22-0500 Body mass index (BMI) [Ratio] 37.3 kg/m2 Ludy Javier FASHION MARKETER.SUPERVISOR CUTTING AND SEWING ROOM Work Phone: [facility] 11-08-2024 09:22-0500 Body temperature 97.11 [degF] Ludy Javier FASHION MARKETER.SUPERVISOR CUTTING AND SEWING ROOM Work Phone: [facility] 11-08-2024 09:22-0500 Body weight 103.24 kg Ludy Javier FASHION MARKETER.SUPERVISOR CUTTING AND SEWING ROOM Work Phone: [facility] 11-08-2024 09:22-0500 Diastolic blood pressure 76 mm[Hg] Ludy Javier FASHION MARKETER.SUPERVISOR CUTTING AND SEWING ROOM Work Phone: [facility] 11-08-2024 09:22-0500 Heart rate 78 /min Ludy Javier FASHION MARKETER.SUPERVISOR CUTTING AND SEWING ROOM Work Phone: [facility] 11-08-2024 09:22-0500 Respiratory rate 17 /min Ludy Javier FASHION MARKETER.SUPERVISOR CUTTING AND SEWING ROOM Work Phone: [facility] 11-08-2024 09:22-0500 SaO2% (BldA) [Mass fraction] 100 % Ludy Javier FASHION MARKETER.SUPERVISOR CUTTING AND SEWING ROOM Work Phone: [facility] 11-08-2024 09:22-0500 Systolic blood pressure 118 mm[Hg] Ludy Javier FASHION MARKETER.SUPERVISOR CUTTING AND SEWING ROOM Work Phone: [facility] 10-22-2024 09:30-0500 Body mass index (BMI) [Ratio] 36.02 kg/m2 Lenore Morelos FASHION MARKETER.SUPERVISOR CUTTING AND SEWING ROOM Work Phone: [facility] 10-22-2024 09:30-0500 Body weight 99.75 kg Lenore Morelos FASHION MARKETER.SUPERVISOR CUTTING AND SEWING ROOM Work Phone: [facility] 05-19-2024 08:42-0400 Body mass index (BMI) [Ratio] 37.58 kg/m2 Lenore Hasenstaub FASHION MARKETER.SUPERVISOR CUTTING AND SEWING ROOM Work Phone: [facility] 05-19-2024 08:42-0400 Body weight 104.06 kg Lenore Hasenstaub FASHION MARKETER.SUPERVISOR CUTTING AND SEWING ROOM Work Phone: [facility] 04-23-2024 14:21-0400 Body height 166.4 cm Billie Lozoya MD Work Phone: [facility] 04-23-2024 14:21-0400 Body mass index (BMI) [Ratio] 37.87 kg/m2 Billie Lozoya MD Work Phone: [facility] 04-23-2024 14:21-0400 Body temperature 96.8 [degF] Billie Lozoya MD Work Phone: [facility] 04-23-2024 14:21-0400 Body weight 104.87 kg Billie Lozoya MD Work Phone: [facility] 04-23-2024 14:21-0400 Diastolic blood pressure 66 mm[Hg] Billie Lozoya MD Work Phone: [facility] 04-23-2024 14:21-0400 Heart rate 79 /min Billie Lzooya MD Work Phone: [facility] 04-23-2024 14:21-0400 Respiratory rate 20 /min Billie Lozoya MD Work Phone: [facility] 04-23-2024 14:21-0400 SaO2% (BldA) [Mass fraction] 98 % Billie Lozoya MD Work Phone: [facility] 04-23-2024 14:21-0400 Systolic blood pressure 121 mm[Hg] Billie Lozoya MD Work Phone: [facility] 02-09-2024 07:49-0400 Body height 166.4 cm Lenore Hasenstaub FASHION MARKETER.SUPERVISOR CUTTING AND SEWING ROOM Work Phone: [facility] 02-09-2024 07:49-0400 Body mass index (BMI) [Ratio] 38.12 kg/m2 Lenore Hasenstaub FASHION MARKETER.SUPERVISOR CUTTING AND SEWING ROOM Work Phone: [facility] 02-09-2024 07:49-0400 Body weight 105.51 kg Lenore Hasenstaub FASHION MARKETER.SUPERVISOR CUTTING AND SEWING ROOM Work Phone: [facility] 02-09-2024 07:49-0400 Diastolic blood pressure 76 mm[Hg] Lenore Hasenstaub FASHION MARKETER.SUPERVISOR CUTTING AND SEWING ROOM Work Phone: [facility] 02-09-2024 07:49-0400 Heart rate 68 /min Lenore Hasenstaub FASHION MARKETER.SUPERVISOR CUTTING AND SEWING ROOM Work Phone: [facility] 02-09-2024 07:49-0400 Systolic blood pressure 118 mm[Hg] Lenore Hasenstaub FASHION MARKETER.SUPERVISOR CUTTING AND SEWING ROOM Work Phone: [facility] 11-17-2023 08:21-0500 Body height 166.4 cm Lenore Hasenstaub FASHION MARKETER.SUPERVISOR CUTTING AND SEWING ROOM Work Phone: [facility] 11-17-2023 08:21-0500 Body weight 107.05 kg Lenore Hasenstaub FASHION MARKETER.SUPERVISOR CUTTING AND SEWING ROOM Work Phone: [facility] 11-17-2023 08:21-0500 Diastolic blood pressure 78 mm[Hg] Lenore Hasenstaub FASHION MARKETER.SUPERVISOR CUTTING AND SEWING ROOM Work Phone: [facility] 11-17-2023 08:21-0500 Heart rate 69 /min Lenore Hasenstaub FASHION MARKETER.SUPERVISOR CUTTING AND SEWING ROOM Work Phone: [facility] 11-17-2023 08:21-0500 Systolic blood pressure 116 mm[Hg] Lenore Hasenstaub FASHION MARKETER.SUPERVISOR CUTTING AND SEWING ROOM Work Phone: [facility] 08-27-2023 08:42-0500 Body height 165.1 cm Lenore Hasenstaub FASHION MARKETER.SUPERVISOR CUTTING AND SEWING ROOM Work Phone: [facility] 08-27-2023 08:42-0500 Body weight 106.5 kg Lenore Hasenstaub FASHION MARKETER.SUPERVISOR CUTTING AND SEWING ROOM Work Phone: [facility] 08-27-2023 08:42-0500 Diastolic blood pressure 72 mm[Hg] Lenore Hasenstaub FASHION MARKETER.SUPERVISOR CUTTING AND SEWING ROOM Work Phone: [facility] 08-27-2023 08:42-0500 Heart rate 65 /min Lenore Hasenstaub FASHION MARKETER.SUPERVISOR CUTTING AND SEWING ROOM Work Phone: [facility] 08-27-2023 08:42-0500 Systolic blood pressure 106 mm[Hg] Lenore Hasenstaub FASHION MARKETER.SUPERVISOR CUTTING AND SEWING ROOM Work Phone: [facility] 06-09-2023 15:28-0400 Body height 165.1 cm Lenore Hasenstaub FASHION MARKETER.SUPERVISOR CUTTING AND SEWING ROOM Work Phone: [facility] 06-09-2023 15:28-0400 Body weight 106.32 kg Lenore Hasenstaub FASHION MARKETER.SUPERVISOR CUTTING AND SEWING ROOM Work Phone: [facility] 06-09-2023 15:28-0400 Diastolic blood pressure 70 mm[Hg] Lenore Hasenstaub FASHION MARKETER.SUPERVISOR CUTTING AND SEWING ROOM Work Phone: [facility] 06-09-2023 15:28-0400 Heart rate 55 /min Lenore Hasenstaub FASHION MARKETER.SUPERVISOR CUTTING AND SEWING ROOM Work Phone: [facility] 06-09-2023 15:28-0400 Systolic blood pressure 112 mm[Hg] Lenore Hasenstaub FASHION MARKETER.SUPERVISOR CUTTING AND SEWING ROOM Work Phone: [facility] 05-30-2023 12:50-0400 Body height 165.1 cm Billie Lozoya MD Work Phone: [facility] 05-30-2023 12:50-0400 Body temperature 97.5 [degF] Billie Lozoya MD Work Phone: [facility] 05-30-2023 12:50-0400 Body weight 107.86 kg Billie Lozoya MD Work Phone: [facility] 05-30-2023 12:50-0400 Diastolic blood pressure 90 mm[Hg] Billie Lozoya MD Work Phone: [facility] 05-30-2023 12:50-0400 Heart rate 66 /min Billie Lozoya MD Work Phone: [facility] 05-30-2023 12:50-0400 SaO2% (BldA) [Mass fraction] 98 % Billie Lozoya MD Work Phone: [facility] 05-30-2023 12:50-0400 Systolic blood pressure 140 mm[Hg] Billie Lozoya MD Work Phone: [facility] 11-06-2022 10:29-0500 Body height 165.1 cm Shanique Jacinto FASHION MARKETER.SUPERVISOR CUTTING AND SEWING ROOM Work Phone: [facility] 11-06-2022 10:29-0500 Body weight 112.95 kg Shanique Jacinto FASHION MARKETER.SUPERVISOR CUTTING AND SEWING ROOM Work Phone: [facility] 11-06-2022 10:29-0500 Diastolic blood pressure 84 mm[Hg] Shanique Jacinto FASHION MARKETER.SUPERVISOR CUTTING AND SEWING ROOM Work Phone: [facility] 11-06-2022 10:29-0500 Heart rate 72 /min Shanique Jacinto FASHION MARKETER.SUPERVISOR CUTTING AND SEWING ROOM Work Phone: [facility] 11-06-2022 10:29-0500 Systolic blood pressure 121 mm[Hg] Shanique Jacinto FASHION MARKETER.SUPERVISOR CUTTING AND SEWING ROOM Work Phone: [facility] 09-09-2022 12:52-0500 Body temperature 97.11 [degF] Rcio Clifford MD Work Phone: [facility] 09-09-2022 12:52-0500 Diastolic blood pressure 82 mm[Hg] Rico Clifford MD Work Phone: [facility] 09-09-2022 12:52-0500 Heart rate 71 /min Rico Clifford MD Work Phone: [facility] 09-09-2022 12:52-0500 SaO2% (BldA) [Mass fraction] 97 % Rico Clifford MD Work Phone: [facility] 09-09-2022 12:52-0500 Systolic blood pressure 126 mm[Hg] Rico Clifford MD Work Phone: [facility] 08-02-2022 09:05-0400 Body height 167.6 cm Shanique Shea FASHION MARKETER.SUPERVISOR CUTTING AND SEWING ROOM Work Phone: [facility] 08-02-2022 09:05-0400 Body weight 116.12 kg Shanique Shea APRN.SUPERVISOR CUTTING AND SEWING ROOM Work Phone: [facility] 08-02-2022 09:05-0400 Diastolic blood pressure 68 mm[Hg] Shanique Shea APRN.SUPERVISOR CUTTING AND SEWING ROOM Work Phone: [facility] 08-02-2022 09:05-0400 Systolic blood pressure 110 mm[Hg] Shanique Shea APRN.SUPERVISOR CUTTING AND SEWING ROOM Work Phone: [facility] 08-02-2022 08:17-0400 Body height 167.6 cm Rico Clifford MD Work Phone: [facility] 08-02-2022 08:17-0400 Body temperature 96.01 [degF] Rico Clifford MD Work Phone: [facility] 08-02-2022 08:17-0400 Body weight 116.57 kg Rico Clifford MD Work Phone: [facility] 08-02-2022 08:17-0400 Diastolic blood pressure 82 mm[Hg] Rico Clifford MD Work Phone: [facility] 08-02-2022 08:17-0400 Heart rate 84 /min Rico Clifford MD Work Phone: [facility] 08-02-2022 08:17-0400 SaO2% (BldA) [Mass fraction] 97 % Rico Clifford MD Work Phone: [facility] 08-02-2022 08:17-0400 Systolic blood pressure 124 mm[Hg] Rico Clifford MD Work Phone: [facility] 11-05-2021 [id number] Body height 165.1 cm Shanique Jacinto APRN.SUPERVISOR CUTTING AND SEWING ROOM Work Phone: [facility] 11-05-2021 10:22-0500 Body weight 73.03 kg Shanique Jacinto FASHION MARKETER.SUPERVISOR CUTTING AND SEWING ROOM Work Phone: [facility] 11-05-2021 10:22-0500 Diastolic blood pressure 73 mm[Hg] Shanique Jacinto FASHION MARKETER.SUPERVISOR CUTTING AND SEWING ROOM Work Phone: [facility] 11-05-2021 10:22-0500 Heart rate 71 /min Shanique Jacinto FASHION MARKETER.SUPERVISOR CUTTING AND SEWING ROOM Work Phone: [facility] 11-05-2021 10:22-0500 Systolic blood pressure 125 mm[Hg] Shanique Jacinto FASHION MARKETER.SUPERVISOR CUTTING AND SEWING ROOM Work Phone: [facility] Encounters Encounter Date Encounter Type Care Provider Facility Start: 08-01-2025 End: 08-01-2025 ambulatory ZAINAB FOUNTAIN FASHION MARKETER-SUPERVISOR CUTTING AND SEWING ROOM Facility:[facility] Start: 08-01-2025 End: 08-01-[address] LASHANDA KAPOOR MD [facility] Start: 06-06-2025 End: 06-06-2025 Patient encounter procedure Lenore Morelos FASHION MARKETER.SUPERVISOR CUTTING AND SEWING ROOM Work Phone: [facility] Comment on above: Class 3 severe obesi ty with serious comorbidity in adult (HCC) (Primary Dx); Dietary counseling and surveillance; BMI 40.0-44.9, adult (HCC); Inflammatory breast cancer, right (HCC); Type 2 diabetes mellitus with other specified complication, without long-term current use of insulin (HCC); HALIMA (obstructive sleep apnea); BMI 37.0-37.9, adult Start: 06-06-2025 End: 06-06-2025 ambulatory LENORE MORELOS Facility:[facility] Start: 05-25-2025 End: 05-28-2025 ambulatory Lenore Morelos FASHION MARKETER.SUPERVISOR CUTTING AND SEWING ROOM Work Phone: [facility] Start: 05-25-2025 End: 05-28-2025 Patient encounter procedure Lenore Morelos FASHION MARKETER.SUPERVISOR CUTTING AND SEWING ROOM Work Phone: [facility] Comment on above: Moting labs Start: 05-22-2025 End: 05-26-2025 Refill Lenore Morelos FASHION MARKETER.SUPERVISOR CUTTING AND SEWING ROOM Work Phone: [facility] Comment on above: Refill Request Start: 05-17-2025 End: 05-17-2025 ambulatory Zainab Fountain PROJECT CONTROLS SCHEDULER-C Work Phone: [facility] Start: 05-17-2025 End: 05-17-[address] Lashanda Kapoor MD [facility] Work Phone: Start: 05-17-2025 End: 05-17-2025 ambulatory Lashanda Kapoor Facility:[facility] Start: 05-07-2025 End: 05-09-2025 Refill Lenore Morelos FASHION MARKETER.SUPERVISOR CUTTING AND SEWING ROOM Work Phone: [facility] Comment on above: Refill Request Start: 04-30-2025 End: 04-30-2025 ambulatory ZAINAB FOUNTAIN FASHION MARKETER-SUPERVISOR CUTTING AND SEWING ROOM Facility:[facility] Start: 04-30-2025 End: 04-30-2025 Patient encounter procedure ZAINAB FOUNTAIN FASHION MARKETER-SUPERVISOR CUTTING AND SEWING ROOM [facility] Start: 03-14-2025 End: 03-15-2025 ambulatory Lenore Morelos FASHION MARKETER.SUPERVISOR CUTTING AND SEWING ROOM Work Phone: [facility] Start: 03-14-2025 End: 03-15-2025 Follow-up encounter Lenore Morelos APRN.SUPERVISOR CUTTING AND SEWING ROOM Work Phone: [facility] Comment on above: Follow-up Start: 02-09-2025 End: 02-09-2025 Patient encounter procedure Lenore Franco Jethro FASHION MARKETER.SUPERVISOR CUTTING AND SEWING ROOM Work Phone: [facility] Comment on above: Class 3 severe obesi ty with serious comorbidity in adult (Primary Dx); Inflammatory breast cancer, right (HCC); Type 2 diabetes mellitus with other specified complication, without long-term current use of insulin (HCC); HALIMA (obstructive sleep apnea); Dietary counseling and surveillance; BMI 37.0-37.9, adult; Abnormal craving Start: 02-09-2025 End: 02-09-2025 Telemedicine consultation with patient Lenore Morelos FASHION MARKETER.SUPERVISOR CUTTING AND SEWING ROOM Work Phone: [facility] Start: 02-09-2025 End: 02-09-2025 ambulatory LENORE MORELOS Facility:[facility] Start: 12-21-2024 End: 12-21-2024 ambulatory [facility] Facility:[facility] Start: 12-21-2024 End: 12-21-2024 Patient encounter procedure Ludy Lee FASHION MARKETER.SUPERVISOR CUTTING AND SEWING ROOM Work Phone: General Surgery Comment on above: Hyperplastic polyp o f ascending colon (Primary Dx) Start: 12-14-2024 End: 02-13-2025 Follow-up encounter Rico Clifford MD Work Phone: General Surgery Start: 12-13-2024 End: 12-13-2024 ambulatory ZAINAB Destiny FOUNTAIN Facility:[facility] Start: 12-13-2024 End: 12-13-2024 Subsequent hospital visit by physician Rico Clifford MD Work Phone: Ambulatory Surgery Comment on above: Screen for colon can cer [Z12.11] Start: 11-18-2024 End: 11-18-2024 ambulatory Lenore Morelos FASHION MARKETER.SUPERVISOR CUTTING AND SEWING ROOM Work Phone: [facility] Start: 11-18-2024 End: 11-18-2024 Patient encounter procedure Lenore Morelos FASHION MARKETER.SUPERVISOR CUTTING AND SEWING ROOM Work Phone: [facility] Comment on above: Libby Start: 11-11-2024 End: 11-11-2024 Patient encounter procedure Shanique Jacinto FASHION MARKETER.SUPERVISOR CUTTING AND SEWING ROOM Work Phone: [facility] Comment on above: Inflammatory breast cancer, right (HCC) (Primary Dx); History of right mastectomy; BRCA negative; Visit for screening mammogram Start: 11-11-2024 End: 11-11-2024 ambulatory SHANIQUE JACINTO Facility:[facility] Start: 11-08-2024 ambulatory SHANIQUE JACINTO Facility:[facility] Start: 11-08-2024 End: 11-08-2024 Subsequent hospital visit by physician Screen Mammo [facility] Comment on above: Visit for screening mammogram [Z12.31] Start: 11-08-2024 End: 11-08-2024 ambulatory LUDY LEE Facility:[facility] Start: 11-08-2024 End: 11-08-2024 Patient encounter procedure Ludy Lee FASHION MARKETER.SUPERVISOR CUTTING AND SEWING ROOM Work Phone: General Surgery Comment on above: Screen for colon can cer (Primary Dx); Family history of colon cancer in father Start: 10-22-2024 End: 10-22-2024 Patient encounter procedure Lenore Franco Braulioruth FASHION MARKETER.SUPERVISOR CUTTING AND SEWING ROOM Work Phone: [facility] Comment on above: Class 3 [...] End: 10-22-2024 Telemedicine consultation with patient Lenore Morelos FASHION MARKETER.SUPERVISOR CUTTING AND SEWING ROOM Work Phone: [facility] Start: 10-22-2024 End: 10-22-2024 ambulatory LENORE Alexander JETHRO Facility:[facility] Start: 10-17-2024 End: 10-18-2024 ambulatory Lenore Franco Addychristine FASHION MARKETER.SUPERVISOR CUTTING AND SEWING ROOM Work Phone: [facility] Start: 10-17-2024 End: 10-18-2024 Patient encounter procedure Lenore Morelos FASHION MARKETER.SUPERVISOR CUTTING AND SEWING ROOM Work Phone: [facility] Comment on above: Lab results Start: 10-17-2024 End: 10-19-2024 Refill Lenore Franco Jethro RANDHAWA.SUPERVISOR CUTTING AND SEWING ROOM Work Phone: [facility] Comment on above: Refill Request Start: 09-12-2024 End: 09-13-2024 Refill Lenore Reissasha FASHION MARKETER.SUPERVISOR CUTTING AND SEWING ROOM Work Phone: [facility] Comment on above: Refill Request Start: 09-01-2024 End: 09-01-2024 ambulatory Zainab Fountain PROJECT CONTROLS SCHEDULER Facility:[facility] Start: 08-16-2024 End: 08-16-2024 Refill Lenore Reissasha FASHION MARKETER.SUPERVISOR CUTTING AND SEWING ROOM Work Phone: [facility] Comment on above: Refill Request Start: 08-07-2024 End: 08-09-2024 Refill Lenore Ramseyruth FASHION MARKETER.SUPERVISOR CUTTING AND SEWING ROOM Work Phone: [facility] Comment on above: Refill Request Start: 07-27-2024 End: 07-31-2024 Outreach Lab ZAINAB L АЛЕКСАНДР FASHION MARKETER-SUPERVISOR CUTTING AND SEWING ROOM [facility] Start: 07-22-2024 End: 07-22-2024 Patient encounter procedure ZAINAB PAREKHSEY FASHION MARKETER-SUPERVISOR CUTTING AND SEWING ROOM [facility] Start: 06-21-2024 End: 06-24-2024 Refill Lenore Reissasha FASHION MARKETER.SUPERVISOR CUTTING AND SEWING ROOM Work Phone: [facility] Comment on above: Refill Request Start: 05-24-2024 ambulatory Lenore Dalykeira xiao FASHION MARKETER.SUPERVISOR CUTTING AND SEWING ROOM Work Phone: [facility] Start: 05-24-2024 Patient encounter procedure Lenore Dalychristine FASHION MARKETER.SUPERVISOR CUTTING AND SEWING ROOM Work Phone: [facility] Comment on above: libby Start: 05-19-2024 E-mail encounter fro m caregiver [facility] Provider [facility] Start: 05-19-2024 Follow-up encounter [facility] Provider [facility] Comment on above: Follow Up - Lenore Stoner Start: 05-19-2024 End: 05-19-2024 Patient encounter procedure Lenore Morelos FASHION MARKETER.SUPERVISOR CUTTING AND SEWING ROOM Work Phone: [facility] Comment on above: Class 3 severe obesi ty with serious comorbidity in adult, unspecified BMI, unspecified obesity type (HCC) (Primary Dx); Dietary counseling and surveillance; BMI 40.0-44.9, adult (HCC); Type 2 diabetes mellitus with other specified complication, without long-term current use of insulin (HCC); HALIMA (obstructive sleep apnea) Start: 05-19-2024 End: 05-19-2024 Telemedicine consultation with patient Lenore Morelos FASHION MARKETER.SUPERVISOR CUTTING AND SEWING ROOM Work Phone: [facility] Start: 05-17-2024 Refill Lenore Trejo aub FASHION MARKETER.SUPERVISOR CUTTING AND SEWING ROOM Work Phone: [facility] Comment on above: Refill Request Start: 05-06-2024 Refill Lenore Trejo aub FASHION MARKETER.SUPERVISOR CUTTING AND SEWING ROOM Work Phone: [facility] Comment on above: Refill Request Start: 04-23-2024 End: 04-23-2024 Patient encounter procedure Billie Lozoya MD Work Phone: Pulmonary Medicine Comment on above: HALIMA (obstructive sle ep apnea) (Primary Dx) Start: 04-23-2024 Telephone encounter Billie hutson MD Work Phone: Pulmonary Medicine Comment on above: FYI-No Action Needed Start: 04-17-2024 Refill Lenore Trejo aub FASHION MARKETER.SUPERVISOR CUTTING AND SEWING ROOM Work Phone: [facility] Comment on above: Refill Request Start: 03-29-2024 Telephone encounter Billie hutson MD Work Phone: Pulmonary Medicine Comment on above: FYI-No Action Needed Start: 03-19-2024 Refill Lenore Trejo aub FASHION MARKETER.SUPERVISOR CUTTING AND SEWING ROOM Work Phone: [facility] Comment on above: Refill Request Start: 03-17-2024 ambulatory Lenore Trejo aub FASHION MARKETER.SUPERVISOR CUTTING AND SEWING ROOM Work Phone: [facility] Start: 03-17-2024 Patient encounter procedure Lenore Morelos FASHION MARKETER.SUPERVISOR CUTTING AND SEWING ROOM Work Phone: [facility] Comment on above: libby Start: 02-09-2024 End: 02-09-2024 Patient encounter procedure Lenore Morelos FASHION MARKETER.SUPERVISOR CUTTING AND SEWING ROOM Work Phone: [facility] Comment on above: Class 3 severe obesi ty with serious comorbidity in adult, unspecified BMI, unspecified obesity type (HCC) (Primary Dx); BMI 40.0-44.9, adult ([facility]); Dietary counseling and surveillance; Type 2 diabetes mellitus with other specified complication, without long-term current use of insulin ([facility]); HALIMA (obstructive sleep apnea) Start: 01-21-2024 ambulatory Lenore Dalykeira aub FASHION MARKETER.SUPERVISOR CUTTING AND SEWING ROOM Work Phone: [facility] Start: 01-21-2024 E-mail encounter fro m caregiver Lenore Ramseyruth FASHION MARKETER.SUPERVISOR CUTTING AND SEWING ROOM Work Phone: [facility] Start: 01-18-2024 Refill Lenore Trjeo aub FASHION MARKETER.SUPERVISOR CUTTING AND SEWING ROOM Work Phone: [facility] Comment on above: Refill Request Start: 01-15-2024 ambulatory Lenore Franco Maya aub FASHION MARKETER.SUPERVISOR CUTTING AND SEWING ROOM Work Phone: [facility] Comment on above: Libby Start: 12-29-2023 ambulatory Billie Lozoya MD Work Phone: Pulmonary Medicine Comment on above: Sleep study results Start: 12-29-2023 E-mail encounter fro m caregiver Billie Lozoya MD Work Phone: [facility] Start: 12-23-2023 ambulatory Lenore Franco Maya aub FASHION MARKETER.SUPERVISOR CUTTING AND SEWING ROOM Work Phone: [facility] Comment on above: libby Start: 12-12-2023 ambulatory Lenore Ramseymecca aub FASHION MARKETER.SUPERVISOR CUTTING AND SEWING ROOM Work Phone: [facility] Comment on above: Libby Start: 12-12-2023 Refill Lenore Trejo aub FASHION MARKETER.SUPERVISOR CUTTING AND SEWING ROOM Work Phone: [facility] Comment on above: Refill Request Start: 11-19-2023 Chart [facility] Work Phone: Neurology Start: 11-17-2023 End: 11-17-2023 Patient encounter procedure Lenore Morelos FASHION MARKETER.SUPERVISOR CUTTING AND SEWING ROOM Work Phone: [facility] Comment on above: Class 3 severe obesi ty with serious comorbidity in adult, unspecified BMI, unspecified obesity type (HCC) (Primary Dx); Dietary counseling and surveillance; Type 2 diabetes mellitus with other specified complication, without long-term current use of insulin (HCC); HALIMA (obstructive sleep apnea); BMI 40.0-44.9, adult (HCC) Start: 10-09-2023 End: 10-09-2023 ambulatory PROVIDER [facility] Start: 09-23-2023 Refill Lenore Trejo jesseniab FASHION MARKETER.SUPERVISOR CUTTING AND SEWING ROOM Work Phone: [facility] Comment on above: Refill Request Start: 08-27-2023 End: 08-27-2023 Patient encounter procedure Lenore Morelos FASHION MARKETER.SUPERVISOR CUTTING AND SEWING ROOM Work Phone: [facility] Comment on above: Obesity, Class III, BMI >= 40 (Primary Dx); Type 2 diabetes mellitus with other specified complication, without long-term current use of insulin (HCC); HALIMA (obstructive sleep apnea); Dietary counseling and surveillance; BMI 40.0-44.9, adult (HCC) Start: 08-20-2023 ambulatory Lenore Franco Maya aub FASHION MARKETER.SUPERVISOR CUTTING AND SEWING ROOM Work Phone: [facility] Comment on above: no Ozempic Start: 07-28-2023 Refill Lenore Ramseymecca aub FASHION MARKETER.SUPERVISOR CUTTING AND SEWING ROOM Work Phone: [facility] Comment on above: Refill Request Start: 07-21-2023 End: 07-22-2023 ambulatory ZAINAB FOUNTAIN Facility:[facility] Start: 06-09-2023 End: 06-09-2023 Patient encounter procedure Lenore Franco Jethro FASHION MARKETER.SUPERVISOR CUTTING AND SEWING ROOM Work Phone: [facility] Comment on above: Class 3 [...] (obstructive sleep apnea) Start: 02-11-2023 ambulatory Lenore Franco Maya xiao FASHION MARKETER.SUPERVISOR CUTTING AND SEWING ROOM Work Phone: [facility] Comment on above: labs Start: 02-11-2023 E-mail encounter fro m caregiver Lenore Franco Jethro RANDHAWA.SUPERVISOR CUTTING AND SEWING ROOM Work Phone: [facility] Start: 01-27-2023 Telephone encounter Lenore Franco Braulio miranda FASHION MARKETER.SUPERVISOR CUTTING AND SEWING ROOM Work Phone: [facility] Comment on above: Medication Request ( Ozempic needles) Start: 01-24-2023 Telephone encounter Lenore Franco Braulio miranda FASHION MARKETER.SUPERVISOR CUTTING AND SEWING ROOM Work Phone: [facility] Comment on above: Appointment Start: 11-06-2022 Documentation procedure Mammog niles Coordinator [facility] Start: 11-06-2022 Letter encounter Mammography Coordinator [place] [facility] NOT LISTED Start: 11-06-2022 End: 11-06-2022 Patient encounter procedure Shanique Jacinto FASHION MARKETER.SUPERVISOR CUTTING AND SEWING ROOM Work Phone: [facility] Comment on above: Inflammatory breast cancer, right (HCC) (Primary Dx); History of right mastectomy; BRCA negative; Visit for screening mammogram Start: 11-06-2022 End: 11-06-2022 Subsequent hospital visit by physician Screen Mammo [facility] Comment on above: Encounter for screen ing mammogram for breast cancer [Z12.31] Start: 10-30-2022 ambulatory Lenore Trejo dameon FASHION MARKETER.SUPERVISOR CUTTING AND SEWING ROOM Work Phone: [facility] Comment on above: Vitamin D level Start: 10-30-2022 E-mail encounter fro m caregiver Lenore Dalychristine FASHION MARKETER.SUPERVISOR CUTTING AND SEWING ROOM Work Phone: [facility] Start: 09-09-2022 End: 09-09-2022 Patient encounter procedure Rico Clifford MD Work Phone: General Surgery Comment on above: Aftercare (Primary D x) Start: 08-28-2022 End: 08-28-2022 ambulatory ZAINAB Dixon (ELOISE) FOUNTAIN Facility:[facility] Start: 08-02-2022 End: 08-02-2022 Patient encounter status Shanique Shea APRN.SUPERVISOR CUTTING AND SEWING ROOM Work Phone: OB/Gynecology Start: 08-02-2022 End: 08-02-2022 Patient encounter procedure Rico Clifford MD Work Phone: General Surgery Comment on above: Calculus of gallblad leonidas with cholecystitis of other acuity without obstruction (Primary Dx); RUQ pain Encounter for gyneco logical examination (general) (routine) without abnormal findings (Primary Dx); Encounter for screening mammogram for breast cancer Start: 07-23-2022 Telephone encounter Genesis darnell MD Work Phone: [facility] Comment on above: External Referrals/r esources (/Fax PCP ref call into the program, LVM /) Start: 11-05-2021 End: 11-05-2021 Patient encounter procedure Shanique Jacinto APRN.SUPERVISOR CUTTING AND SEWING ROOM Work Phone: [facility] Comment on above: Inflammatory breast cancer, right (HCC) (Primary Dx); History of right mastectomy; Visit for screening mammogram Procedures Date Procedure Procedure Detail Performing Clinician Start: 05-17-2025 Hepatitis C antibody measurement Zainab Fountain PROJECT CONTROLS SCHEDULER-C Work Phone: Comment on above: Reactive: Presumptiv e evidence of antibodies to HCV. Follow CDC recommendations for supplemental testing.Non-Reactive: Antibodies to HCV were not detected; does not exclude the possibility of exposure to HCVReactive Results are presumptive evidence of antibodies to HCV. Follow CDC recommendations for supplemental testing.Order confirmation testing: HCV Quant by PCR testing - HCVPCR #[id number] Non Reactive: < 0.8 Equivocal: >/= 0.8 to < 1.0 Reactive: >/= 1.0The [facility] requires that a reactive/equivocal HCV antibody result be sent out for confirmation. HCV Quant by PCR testing. Start: 05-17-2025 Laboratory data interpretation Zainab Fountain PROJECT CONTROLS SCHEDULER-C Work Phone: Comment on above: No lupus anticoagula nt was detected.Performed at: [address] [id number] Director: Jose Chambers MD, Phone: [phone] Start: 05-17-2025 Lupus anticoagulant assay, platelet neutralization method Zainab Александр PROJECT CONTROLS SCHEDULER-C Work Phone: Start: 05-17-2025 Lupus anticoagulant screening test Zainab Parekhsey PROJECT CONTROLS SCHEDULER-C Work Phone: Start: 05-17-2025 Prothrombin time Zainab Parekhsey PROJECT CONTROLS SCHEDULER-C Work Phone: Start: 05-17-2025 Urnls dip stick/tabl et reagent auto microscopy Zainab Fountain PROJECT CONTROLS SCHEDULER-C Work Phone: Start: 05-17-2025 Procedure Zainab Parekh darcie PROJECT CONTROLS SCHEDULER-C Work Phone: Start: 12-13-2024 Colonoscopy flx dx w /collj spec when pfrmd Ludy Lee FASHION MARKETER.SUPERVISOR CUTTING AND SEWING ROOM Work Phone: Start: 12-13-2024 Colonoscopy Rico hua MD Work Phone: Start: 11-06-2022 CAMELIA SCREENING W CHANCE Shea FASHION MARKETER.SUPERVISOR CUTTING AND SEWING ROOM Work Phone: Start: 11-06-2022 Mammography Shanique iverson FASHION MARKETER.SUPERVISOR CUTTING AND SEWING ROOM Work Phone: Start: 11-05-2021 Mammography Shanique iverson APRN.SUPERVISOR CUTTING AND SEWING ROOM Work Phone: Start: 10-13-2021 Cholecystectomy ZAINAB FOUNTAIN FASHION MARKETER-SUPERVISOR CUTTING AND SEWING ROOM Start: 12-13-2019 Colonoscopy Shanique iverson FASHION MARKETER.SUPERVISOR CUTTING AND SEWING ROOM Work Phone: Start: 09-01-2017 Adult depression scr eening assessment Shanique Jacinto FASHION MARKETER.SUPERVISOR CUTTING AND SEWING ROOM Work Phone: Plan of Treatment Date Care Activity Detail Author Start: 07-22-2034 Urine microalbumin profile DTaP,Tdap,Td Vaccine (3 - Td or Tdap) [facility] Start: 12-13-2029 Screening for malign ant neoplasm of colon [facility] Start: 11-18-2025 End: 11-18-2025 Patient encounter procedure 11/18/2025 9:00 AM EST Office Visit [facility] [address] [place] [phone] Shanique Jacinto APRN.SUPERVISOR CUTTING AND SEWING ROOM [address] [place], [place] [id number] yearly exam and review results [facility] Comment on above: yearly exam and revi ew results Start: 11-11-2025 End: 11-11-2025 Patient encounter procedure 11/11/2025 8:00 AM EST Appointment [facility] [address] [place], [place] [id number] screening mammogram with CHNACE [facility] Comment on above: screening mammogram with CHANCE Start: 11-09-2025 End: 12-11-2025 DBT Breast - bilateral screening CAMELIA SCREENING W [facility] Radiology Routine Visit for screening mammogram Expected: 11/09/2025, Expires: 12/11/2025 [facility] Work Phone: Comment on above: Expected: 11/09/2025 , Expires: 12/11/2025 Start: 11-08-2025 Screening for malign ant neoplasm of breast Mammogram Screening [facility] Start: 08-31-2025 End: 08-31-2025 Patient encounter procedure 08/31/2025 3:30 PM EST [facility] [address] [place] [address] Lenore Morelos, FASHION MARKETER.SUPERVISOR CUTTING AND SEWING ROOM [address] [place], [place] [id number] 12 wek f/u- vv ok [facility] Comment on above: 12 wek f/u- vv ok Start: 06-13-2025 Influenza vaccination Influenza Vacc ine (#1) [facility] Start: 06-06-2025 End: 06-06-2025 Patient encounter procedure 06/06/2025 9:30 AM EDT Office Visit [facility] [address] [place] [address] Lenore Morelos, FASHION MARKETER.SUPERVISOR CUTTING AND SEWING ROOM [address] [place] [address] 4 Month - In Person [facility] Comment on above: 4 Month - In Person Start: 02-09-2025 End: 02-09-2025 Follow-up encounter 02/09/2025 8:00 AM EDT [facility] DE[facility] [address] [place] [address] Lenore Morelos, FASHION MARKETER.SUPERVISOR CUTTING AND SEWING ROOM [address] [place] [address] 3 Month Follow Up [facility] Comment on above: 3 Month Follow Up Start: 12-21-2024 End: 12-21-2024 Patient encounter procedure General Surgery Comment on above: 12-13- colonoscopy f ollow up in office colonoscopy f ollow up in office. Surgery updated. [facility] Start: 12-13-2024 End: 12-13-2024 Patient encounter procedure 12/13/2024 11:15 AM EST Appointment Ambulatory Surgery [address] [place] [address] Rico Clifford MD [address] [place] [address] Screen for colon cancer [Z12.11]; Family history of colon cancer in father [Z80.0] Ambulatory Surgery Comment on above: Screen for colon can cer [Z12.11]; Family history of colon cancer in father [Z80.0] Start: 12-12-2024 Colonoscopy COLONOSCOPY [facility] Start: 12-12-2024 COLORECTAL CANCER SCREENING COLORECTAL CANCER SCREENING [facility] Start: 12-12-2024 Screening for malign ant neoplasm of colon [facility] Start: 11-11-2024 End: 11-11-2024 Patient encounter procedure 11/11/2024 1:30 PM EST Office Visit [facility] [address] [place] [phone] Shanique Jacinto, FASHION MARKETER.SUPERVISOR CUTTING AND SEWING ROOM [address] [place] [address] Screening mammogram with chance [facility] Comment on above: Screening mammogram with chance Start: 11-08-2024 End: 11-08-2024 Patient encounter procedure [facility] Comment on above: Screening mammogram with chance Start: 11-07-2024 Screening for malign ant neoplasm of breast Mammogram Screening [facility] Start: 10-22-2024 End: 10-22-2024 Follow-up encounter 10/22/2024 9:30 AM EST [facility] [address] [place] [address] Lenore Morelos, FASHION MARKETER.SUPERVISOR CUTTING AND SEWING ROOM [address] [place], [place] [id number] Follow Up [facility] Comment on above: Follow Up Start: 06-13-2024 Covid-19 Vaccine () Covid-19 Vaccine ( season) [facility] Start: 06-13-2024 Covid-19 Vaccine ( season) Covid-19 Vaccine () [facility] Start: 06-13-2024 Influenza vaccination Influenza Vacc ine (#1) [facility] Start: 05-19-2024 End: 05-19-2024 Patient encounter procedure 05/19/2024 8:30 AM EDT [facility] [address] [place] [address] Lenore Morelos, FASHION MARKETER.SUPERVISOR CUTTING AND SEWING ROOM [address] [place], [place] [id number] 12 Wk F/U [facility] Comment on above: 12 Wk F/U Start: 05-07-2024 End: 05-07-2024 Patient encounter procedure 05/07/2024 8:30 AM EDT [facility] DEPARTMENT [address] [place] [address] Lenore Morelos, FASHION MARKETER.SUPERVISOR CUTTING AND SEWING ROOM [address] [place], [place] [id number] 12 Wk F/U [facility] Comment on above: 12 Wk F/U Start: 04-23-2024 End: 04-23-2024 Patient encounter procedure Pulmonary Medicine Comment on above: ?sleep//3 month foll ow up ??sleep,asthma//3 mo nt follow up. Dwnld compliance in chart. Start: 02-11-2024 Hepatitis B surface antibody level LDL CHOLESTEROL [facility] Start: 01-22-2024 HPV TESTING HPV TESTING [facility] Start: 01-22-2024 PAP TESTING PAP TESTING [facility] Start: 01-22-2024 Screening for malign ant neoplasm of cervix [facility] Start: 11-07-2023 End: 12-06-2023 CAMELIA SCREENING W CHANCE CAMELIA SCREENING W [facility] Radiology Routine Visit for screening mammogram Expected: 11/07/2023, Expires: 12/06/2023 [facility] Work Phone: Comment on above: Expected: 11/07/2023 , Expires: 12/06/2023 Start: 11-06-2023 Mammography [facility] Start: 11-06-2023 Screening for malign ant neoplasm of breast Mammogram Screening [facility] Start: 10-27-2023 Urine microalbumin profile [facility] Start: 10-13-2023 Behavioral Health Screening Behavioral Health Screening [facility] Start: 10-13-2023 Depression Assessment Depression Ass essment [facility] Start: 08-13-2023 Hemoglobin A1c measurement HbA1C [facility] Start: 08-13-2023 Hemoglobin A1c/Hemoglobin.total in Blood HBA1C [facility] Start: 06-13-2023 Covid-19 Vaccine () Covid-19 Vaccine () [facility] Start: 06-13-2023 Influenza vaccination C [facility] Start: 01-15-2023 Hemoglobin A1c/Hemoglobin.total in Blood HBA1C [facility] Start: 2022 COLOGUARD (FIT-DNA) COLOGUARD (FIT-D NA) [facility] Start: [address] COLONOGRAPHY [facility] Start: 2022 FECAL OCCULT BLOOD FECAL OCCULT BLOO D [facility] Start: 2022 Screening for malign ant neoplasm of colon [facility] Start: 2022 SIGMOIDOSCOPY SIGMOIDOSCOPY [facility] Start: 11-06-2022 End: 12-05-2022 CAMELIA SCREENING W CHANCE CAMELIA SCREENING W [facility] Radiology Routine Visit for screening mammogram Expected: 11/06/2022, Expires: 12/05/2022 [facility] Work Phone: Comment on above: Expected: 11/06/2022 , Expires: 12/05/2022 Start: 11-05-2022 Mammography MAMMOGRAM [facility] Start: 10-13-2022 DEPRESSION ASSESSMENT DEPRESSION ASS ESSMENT [facility] Start: 06-13-2022 Influenza vaccination INFLUENZA (#1) [facility] Start: 10-26-2021 COVID-19 VACCINE (4 - Booster for Moderna series) COVID-19 VACCINE (4 - Booster for Moderna series) [facility] Start: 10-13-2021 DEPRESSION ASSESSMENT DEPRESSION ASS ESSMENT [facility] Start: 09-01-2018 Adult depression screening assessment DEPRESSION SCREENING [facility] Start: 1996 Hepatitis B Vaccine (1 of 3 - 19+ 3-dose series) Hepatitis B Vaccine (1 of 3 - 19+ 3-dose series) [facility] Start: 1996 Pneumococcal vaccination Pneumococcal Vaccine (1 of 2 - PCV) [facility] Start: 1995 ANNUAL PCP TEAM BUSINESS LAW PROFESSOR CAITLIN DISEASE VISIT ANNUAL PCP TEAM CHRONIC DISEASE VISIT [facility] Start: 1995 Anxiety Screening Anxiety Screening [facility] Start: 1995 Depression Screening Depression Scre ening [facility] Start: 1995 Hepatitis B surface antibody level LDL CHOLESTEROL [facility] Start: 1995 HEPATITIS C SCREENING HEPATITIS C [facility] Start: 1995 Hepatitis C screening Hepatitis C [facility] Start: 1995 HIV SCREENING HIV SCREENING [facility] Start: 1995 HIV screening HIV Screening [facility] Start: 1987 3 comp foot exam completed DIABETIC FOOT EXAM [facility] Start: 1987 Diabetic foot examination Diabetic Foot Exam [facility] Start: 1987 Glaucoma screening Dilated Retinal E xam [facility] Start: 1987 Hepatitis B screening URINE ALBUMIN:CREATININE RATIO [facility] Start: 1987 Hepatitis C antibody , confirmatory test DILATED RETINAL EXAM [facility] Start: 1983 PNEUMOCOCCAL (1 - PCV) PNEUMOCOCCAL (1 - PCV) [facility] Start: 1983 Pneumococcal vaccination [facility] Start: 1977 HEPATITIS B (1 of 3 - 3-dose series) HEPATITIS B (1 of 3 - 3-dose series) [facility] Start: 1977 Hepatitis B Vaccine (1 of 3 - 3-dose series) Hepatitis B Vaccine (1 of 3 - 3-dose series) [facility] End: 11-08-2024 DBT Breast - bilateral screening [facility] Work Phone: Comment on above: 1 Occurrences starti ng 11/08/2024 until 11/08/2024 End: 09-01-2023 CAMELIA SCREENING W CHANCE CAMELIA SCREENING W [facility] Radiology Routine Encounter for screening mammogram for breast cancer 1 Occurrences starting 08/02/2022 until 09/01/2023 [facility] Work Phone: Comment on above: 1 Occurrences starti ng 08/02/2022 until 09/01/2023 End: 11-08-2025 Screening colonoscopy COLONOSCOPY SCREENING Endoscopy Routine Screen for colon cancer Family history of colon cancer in father 1 Occurrences starting 11/08/2024 until 11/08/2025 [facility] Work Phone: Comment on above: 1 Occurrences starti ng 11/08/2024 until 11/08/2025 Tissue Pathology bio psy report [facility] Work Phone: Comment on above: Release Upon Orderin g for 1 Occurrences starting 12/13/2024, [address] [facility] Immunizations Immunization Date Immunization Notes Care Provider [facility] 07-22-2024 influenza, injectabl e, quadrivalent, contains preservative; Translations: [Fluarix PF Prefilled Syringe ] ZAINAB FOUNTAIN APRN-CAMILLA [facility] 07-22-2024 tetanus toxoid, reduced diphtheria toxoid, and acellular pertussis vaccine, adsorbed; Translations: [Boostrix (Tdap)] ZAINAB FOUNTAIN APRN-CAMILLA [facility] 07-22-2024 influenza virus vaccine, unspecified formulation Lenore Morelos APRN.CNP Work Phone: [facility] 07-21-2023 influenza, injectabl e, quadrivalent, preservative free Lenore Morelos APRN.CNP Work Phone: [facility] 07-21-2023 influenza, injectabl e, quadrivalent, contains preservative; Translations: [Fluarix PF Quadrivalent ] ZAINAB FOUNTAIN FASHION MARKETER-SUPERVISOR CUTTING AND SEWING ROOM [facility] 07-21-2023 influenza virus vaccine, unspecified formulation Lenore Hasenstaub FASHION MARKETER.SUPERVISOR CUTTING AND SEWING ROOM Work Phone: [facility] 07-17-2022 influenza, injectabl e, quadrivalent, preservative free Lenore Hasenstaub FASHION MARKETER.SUPERVISOR CUTTING AND SEWING ROOM Work Phone: [facility] 07-17-2022 influenza virus vaccine, unspecified formulation Lenore Hasenstaub FASHION MARKETER.SUPERVISOR CUTTING AND SEWING ROOM Work Phone: [facility] 08-22-2021 influenza, injectabl e, quadrivalent, preservative free Lenore Hasenstaub FASHION MARKETER.SUPERVISOR CUTTING AND SEWING ROOM Work Phone: [facility] 07-06-2020 influenza, injectabl e, quadrivalent, preservative free Lenore Hasenstaub FASHION MARKETER.SUPERVISOR CUTTING AND SEWING ROOM Work Phone: [facility] 07-26-2019 influenza virus vaccine, unspecified formulation Lenore Hasenstaub FASHION MARKETER.SUPERVISOR CUTTING AND SEWING ROOM Work Phone: [facility] 07-22-2019 influenza, injectabl e, quadrivalent, preservative free Lenore Hasenstaub FASHION MARKETER.SUPERVISOR CUTTING AND SEWING ROOM Work Phone: [facility] 07-14-2018 Influenza, injectabl e, Madin [place] Canine Kidney, preservative free, quadrivalent Lenore Hasenstaub FASHION MARKETER.SUPERVISOR CUTTING AND SEWING ROOM Work Phone: [facility] 06-30-2017 influenza, injectabl e, quadrivalent, preservative free Lenore Hasenstaub FASHION MARKETER.SUPERVISOR CUTTING AND SEWING ROOM Work Phone: [facility] 06-25-2017 influenza, seasonal, injectable Shanique Jacinto FASHION MARKETER.SUPERVISOR CUTTING AND SEWING ROOM Work Phone: [facility] 06-27-2016 influenza, injectabl e, quadrivalent, preservative free Lenore Hasenstaub FASHION MARKETER.SUPERVISOR CUTTING AND SEWING ROOM Work Phone: [facility] 07-26-2015 influenza, injectabl e, quadrivalent, preservative free Lenore Hasenstaub FASHION MARKETER.SUPERVISOR CUTTING AND SEWING ROOM Work Phone: [facility] 07-13-2014 influenza virus vaccine, unspecified formulation Shanique Jacinto FASHION MARKETER.SUPERVISOR CUTTING AND SEWING ROOM Work Phone: [facility] 07-13-2014 influenza, seasonal, injectable, preservative free Lenore Hasenstaub FASHION MARKETER.SUPERVISOR CUTTING AND SEWING ROOM Work Phone: [facility] 10-27-2013 tetanus toxoid, reduced diphtheria toxoid, and acellular pertussis vaccine, adsorbed Shanique Jacinto FASHION MARKETER.SUPERVISOR CUTTING AND SEWING ROOM Work Phone: [facility] 09-22-2013 influenza nasal, unspecified formulation Lenore Hasenstaub FASHION MARKETER.SUPERVISOR CUTTING AND SEWING ROOM Work Phone: [facility] 09-22-2013 influenza virus vaccine, unspecified formulation Shanique Jacinto FASHION MARKETER.SUPERVISOR CUTTING AND SEWING ROOM Work Phone: [facility] 08-12-2013 influenza, seasonal, injectable, preservative free Lenore Hasenstaub FASHION MARKETER.SUPERVISOR CUTTING AND SEWING ROOM Work Phone: [facility] 07-21-2012 influenza, seasonal, injectable, preservative free Lenore Hasenstaub FASHION MARKETER.SUPERVISOR CUTTING AND SEWING ROOM Work Phone: [facility] Payers Date Payer Category Payer Private Health Insurance e [id number] 2024 Self-pay 2016 [employer] [facility] BLUE ACCE SS PPO [id number] 2016 Unknown [facility] BLUE ACCE SS PPO [id number] 2016-Present [phone] [address] [place] [address] PPO [id number] 2016 Unknown [employer] PPO [id number] 2016-Present [phone] [address] [place] [address] PPO [id number] 2016 Unknown [id number] 1977 Unknown [id number] 1977 Unknown [id number] 1977 Unknown [id number] 1977 Unknown [id number] Unknown [id number] Unknown [id number] Social History Date Type Detail Facility Start: 05-24-2015 End: 11-08-2024 Tobacco smoking status NHIS Ex-smoker [facility] Work Phone: Start: 10-13-1995 End: 02-20-2007 History of tobacco use Current smoker [facility] Work Phone: Start: 10-13-1995 End: 02-20-2007 History of tobacco use Cigarette Smoker [facility] Work Phone: Start: 05-24-2015 End: 05-30-2023 Cigarettes smoked current (pack per day) - Reported 0.25 [facility] Start: 05-24-2015 End: 11-08-2024 Tobacco use and exposure Smokeless tobacco non-user [facility] Work Phone: Start: 11-05-2021 End: 06-06-2025 Alcohol intake Current drinker of alcohol (finding) [facility] Start: 08-21-2017 History SDOH Alcohol Comment occassional, social [facility] Start: 1975 Sex Assigned At Female [facility] Start: 10-06-2021 End: 11-05-2021 Exposure to SARS-CoV-2 (event) Yes [facility] Start: 07-23-2022 End: 09-09-2022 Exposure to SARS-CoV-2 (event) Not sure [facility] Start: 05-30-2023 End: 06-06-2025 Tobacco use panel [facility] Start: 09-01-2013 National Score (1-100), lower number is lower risk 71 [facility] Start: 03-09-2019 Gender identity Identifies as female gender (finding) [facility] Start: 03-09-2019 Sexual orientation Heterosexual (finding) [facility] Start: 07-21-2023 Tobacco smoking status Never smoked tobacco (finding) [facility] Sex Assigned At [facility] History of tobacco use Passive smoker [facility] Start: 11-08-2024 Alcohol Comment occasional [facility] Start: 03-07-2011 Sex Female (finding) [facility] Start: 06-13-2020 Tobacco Use Tobacco Use [facility] Medical Equipment Procedure Code Equipment Code Equipment Origin al Text Equipment Identifier Dates 1 Each as directed. Start: 01-27-2023 End: 08-27-2023 Comment on above: 1 Each as directed. See Instructions , OneTouch Verio test strips Use as instructed, # 100 EA, 3 Refill(s), Pharmacy: [id number], 166, cm, 07/21/23 7:42:00 EDT, Height, 104.8, kg, 07/21/23 7:42:00 EDT, Dosing Weight Start: 07-21-2023 See Instructions , OneTouch Delica Plus 33G lancets Use one daily., # 100 EA, 3 Refill(s), Pharmacy: [id number], 166, cm, 07/21/23 7:42:00 EDT, Height, 104.8, kg, 07/21/23 7:42:00 EDT, Dosing Weight Start: 10-09-2023 ONETOUCH VERIO TEST STRIP, USE INSTRUCTED Start: 07-21-2023 See Instructions , OneTouch Verio test strips Use as instructed, # 100 EA, 3 Refill(s), [id number], 166, cm, 07/21/23 7:42:00 EDT, Height, 104.8, kg, 07/21/23 7:42:00 EDT, Dosing Weight Start: 07-21-2023 See Instructions , OneTouch Delica Plus 33G lancets Use one daily., # 100 EA, 3 Refill(s), Pharmacy: [facility] #[id number], 166, cm, 07/21/23 7:42:00 EDT, Height, 104.8, kg, 07/21/23 7:42:00 EDT, Dosing Weight Start: 07-21-2023 ONETOUCH VERIO TEST STRIP, USE INSTRUCTED Start: 07-21-2023 See Instructions , OneTouch Verio test strips Use as instructed, # 100 EA, 3 Refill(s), Pharmacy: [facility] #[id number], 166, cm, 07/21/23 7:42:00 EDT, Height, 104.8, kg, 07/21/23 7:42:00 EDT, Dosing Weight Start: 07-21-2023 See Instructions , OneTouch Delica Plus 33G lancets Use one daily., # 100 EA, 3 Refill(s), Pharmacy: [facility] #[id number], 166, cm, 07/21/23 7:42:00 EDT, Height, 104.8, kg, 07/21/23 7:42:00 EDT, Dosing Weight Start: 07-21-2023 ONETOUCH VERIO TEST STRIP, USE INSTRUCTED Start: 07-21-2023 See Instructions , OneTouch Verio test strips Use as instructed, # 100 EA, 3 Refill(s), [id number], 166, cm, 07/21/23 7:42:00 EDT, Height, 104.8, kg, 07/21/23 7:42:00 EDT, Dosing Weight Start: 07-21-2023 See Instructions , OneTouch Delica Plus 33G lancets Use one daily., # 100 EA, 3 Refill(s), Pharmacy: [facility] #[id number], 166, cm, 07/21/23 7:42:00 EDT, Height, 104.8, kg, 07/21/23 7:42:00 EDT, Dosing Weight Start: 07-21-2023 ONETOUCH VERIO TEST STRIP, USE INSTRUCTED Start: 07-21-2023 Functional Status Date Assessment Result Facility 11-04-2014 Are you deaf, or do you have serious difficulty hearing No 11/04/2014 2:22 PM EST Herminia Ordoñez ND No [facility] 11-04-2014 Are you blind, or do you have serious difficulty seeing, even when wearing glasses No 11/04/2014 2:22 PM EST Hang Ordoñeza [facility] 11-04-2014 Do you have serious difficulty walking or climbing stairs No 11/04/2014 2:22 PM EST Hang Ordoñeza [facility] 11-04-2014 Do you have difficul ty dressing or bathing No 11/04/2014 2:22 PM EST Smita Herminia [facility] 11-04-2014 Because of a physica l, mental, or emotional condition, do you have difficulty doing errands alone such as visiting a physician's office or shopping No 11/04/2014 2:22 PM [facility] Status Date Assessment Result Facility 11-04-2014 Because of a physica l, mental, or emotional condition, do you have serious difficulty concentrating, remembering, or making decisions No 11/04/2014 2:22 PM [facility] 11-22-2016 to 08-01-2025 Note Date & Type Note Facility 08-01-2025 Note Exam Date Time Procedure Performing Provider Status 08/01/25 7:33 AM US Abdomen Limited YOSVANY BERNARDO DO ; Auth (Verified) [id number] ORIGINAL EXAMINATION: RIGHT UPPER QUADRANT ULTRASOUND 08/01/2025 7:35 am COMPARISON: None. HISTORY: ORDERING SYSTEM PROVIDED HISTORY: Reason for Exam: elevated liver enzymes All images are recorded and archived. FINDINGS: LIVER: Liver measures 17.2 cm in length. Moderate diffuse increased echotexture is seen throughout the hepatic parenchyma with masking of the portal triads. Hepatic contour is smooth. Normal hepatopetal flow observed in the main portal vein. BILIARY SYSTEM: Gallbladder surgically absent. Common bile duct is within normal limits measuring 3.2 mm. RIGHT KIDNEY: The right kidney is grossly unremarkable without evidence of hydronephrosis. Right kidney measures 10.5 x 6.1 x 5.8 cm. There is normal cortical thickness and echotexture. PANCREAS: Visualized portions of the pancreas are unremarkable. OTHER: No evidence of right upper quadrant ascites. IMPRESSION: 1. Moderate fatty infiltration of the liver. 2. No acute right upper quadrant pathology. Interpreted by: Yosvany Bernardo DO Preliminary Report By: Yosvany Bernardo DO Electronically signed By Yosvany Bernardo DO Dictated Date: 08/01/2025 11:40:49 AM Prelim Date: 08/01/2025 11:57:50 AM Sign Date: 08/01/2025 11:57:50 AM Ordering Provider: LASHANDA KAPOOR RP [facility]08-25-2025 Instructions* Patient Instructions* Lenore Morelos APRN.SUPERVISOR CUTTING AND SEWING ROOM - 06/06/2025 9:56 AM EDT Images from the original note were not included. Dear Jerrell: It was a pleasure to see you today: Here are today's highlights: Your current weight is 217 lbs, down from 223 lbs at your last visit. Your goal weight remains 160 lbs. Great progress! - Continue taking Mounjaro 15 mg as prescribed. [facility] You may start the new supply on June 20. - Discontinue Topamax, as you are not experiencing hunger or cravings, and we do not want to add toyour fatigue. We discussed your liver enzymes and Tylenol use: - Your ALT was slightly elevated (39, with a cutoff of 35) on a prior test, likely due to taking 6 extra-strength Tylenol (500 mg each) daily. Now that you have stopped taking Tylenol, we expect yourliver enzymes to improve. - Rheumatology is/will monitor your liver function. If your levels remain elevated or worsen, please let me know. We discussed your fatigue and joint pain: - Fatigue may be a side effect of your current medications, Plaquenil and meloxicam. Continue taking meloxicam as directed until your next rheumatology visit. - Your ferritin level was elevated (430), which may indicate inflammation contributing to your joint pain. Continue following up with rheumatology for further evaluation and management. We discussed your diet and activity: - You are doing well with your diet. Continue focusing on fresh, unprocessed foods and avoid packaged or preservative-laden items, as these can contribute to inflammation. - Aim for 60-70 grams of protein daily. For meals, eat your protein first, followed by vegetables, then starches. - Maintain 3-hour intervals between meals. If dinner is late, consider a snack around 3:30 PM to prevent hunger. - Continue your current exercise routine, including walking and high-intensity interval training (HIIT) classes. We discussed your sleep and CPAP use: - Continue using your CPAP machine. However, your joint pain may be disrupting your sleep. If this persists, inform primary care or juice weigher. Continue Mounjaro 15 mg prescription TIRZEPATIDE (MOUNJARO) Tirzepatide (Mounjaro) is a new combination drug (mimics 2 gut hormones, GLP1 and GIP) which has demonstrated superior weight loss >20% body wt loss after 72 week randomized controlled study. It'sonly approved for diabetes currently, but likely will [...] dose escalation. Video Instructions for Injecting Mounjaro: https://www.youtube.com/watch?v=nxnhBdyTSZ0 Link to Clinical Allergist Website [employer] Medication Guide: https://pi.FindThatCourse.Imaging3/us/mohaccxx-lr-hx.pdf?s=mg Written pen instructions: https://uspl.leonides.com/mounjaro/mounjaro.html#ug0 Tirzepatide: Patient drug information What is Mounjaro? [...] It is not known if Mounjaro is safeand effective for use in children under 18 [...] SUMMARY WITH WARNINGS Important Facts About Mounjaro ([id number]). It is also known as tirzepatide. Mounjaro [...] It is not known if Mounjaro is safeand effective for use in children under 18 years of age. Warnings Mounjaro may cause tumors in the thyroid, including thyroid cancer. Watch for possible symptoms, such as a lump or swelling in the neck, hoarseness, trouble swallowing, or shortness of breath. If youhave a symptom, tell your healthcare provider. Do [...] in some people who use Mounjaro. Tell yourhealthcare provider right away if you get symptoms [...] effects. You can report side effects at 0-455-LWL-1691 or www.fda.gov/medwatch. Before using Your healthcare provider [...] or plan to breastfeed? It is not knownif Mounjaro will harm your unborn baby. Do you take control pills by mouth? These may not work as well while using Mounjaro. Your healthcare provider may recommend another type of control when you start Mounjaro or when you increase your dose. Do you take any other prescription medicines or gfiz-qmk-jqrfzxp drugs, vitamins, or herbal supplements? How to [...] promptly. Learn more For more information, call 0-921-ZjsjqUt ( ) or go to www.TOSA ([employer]).Imaging3. This information does not take the place [...] or affiliates. NIGEL MOSER [employer] FEBRUARY2022 Access AchieveIt Online Online for additional drug information, tools, and databases. Copyright 9324-1396 [employer]. All rights reserved. 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 What are some things I need to know or do while I take this drug? Tell all of your health care providers that you take this drug. This includes your doctors, nurses,pharmacists, and dentists. Wear disease medical alert ID [...] prevent . If you take control pills, youmay need to switch to another type of hormone-based control like a vaginal ring if your doctor tells you to. If another type of hormone-based control is not an option, use some other kindof control also, like a condom. Do this [...] of stress such as fever, infection, injury, orsurgery. A change in physical activity, exercise, or [...] , plan on getting , or are breast- feeding. You will need to talk about the [...] right away if you have any of thefollowing signs or symptoms that may be related to a very bad side effect: Signs of an allergic reaction, like rash; hives; itching; red, swollen, blistered, or peeling skin with or without fever; wheezing; tightness in the chest or throat; trouble breathing, swallowing, ortalking; unusual hoarseness; or swelling of the mouth, [...] no side effects or only have minor sideeffects. Call your doctor or get medical help [...] all information given to you. Follow all instructionsclosely. It is given as a shot into the fatty part of the skin on the top of the thigh, belly area, or upperarm. If you will be giving yourself the [...] If you have any questions about this drug,please talk with your doctor, nurse, pharmacist, or other health care provider. If you think there has been an overdose, call your poison control center or get medical care right away. Be ready to tell or show what was taken, how much, and when it happened. Last Reviewed [id number] Consumer Information Use and Disclaimer This generalized [...] that may apply to a specific patient. Itis not intended to be medical advice or [...] or approved for treating a specific patient. [employer] and its affiliatesdisclaim any warranty or liability relating to this information or the use thereof. The use of thisinformation is governed by the Terms of Use, available at https://www.WakeMate.Imaging3/en/know/qwqdsypu-qvyyxryybsfuh-loitr. Education included discussing thyroid C-cell tumor risk [...] such as persistent severe abdominal pain, sometimes radiatingto the back, with or without vomiting. If this occurs, stop medication immediately and go to ER. The most common adverse reactions include nausea, vomiting, diarrhea, constipation and injection site erythema. These may dissipate over time. Helpful tip GLP-1 RA increases beta cell proliferation. documented in this encounterChildren[facility] History of Present illness Narrative* Lenore Morelos APRN.CNP - 06/06/2025 9:30 AM EDT Obesity Medicine Followup Note Recording using Viewbix software for draft documentation of the visit was discussed with the patient/authorized territory service representative; all questions welcomed and answered. Patient/authorized territory service representative agreed to proceed 06-06-25 Patient HPI: is 48 year old Female who presents with diagnosis of class III severe obesity with PMHinflammatory breast cancer on the right, and Type 2 diabetes mellitus for follow-up evaluation of her obesity and related complications. In our previous visits we have outlined an individualized lifes tyle intervention including a personalized nutrition recommendations and physical activity optimization. Tameka Allan is here today for follow up evaluation for non surgical metabolic weight loss management. her last office visit was3 month(s) ago with advanced practice registered nurse. Weight loss since last visit: Goal weight 160 Today's weight:217 lbs Last weight: 223 BMI: 35.59 Today's concerns: New labs Current Obesity Medications: Mounjaro 15 mg subcutaneous weekly injection topiramate 25 mg tablet not taking at this time some joint pain and follow up with rheumatology andtemporarily stopped. Increased fatigue No real hunger or cravings Reports no changes with the Mounjaro Bs controlled (Recent sl elevated ALT tylenol tid extra strength which could have elevated ALT was 39 Now on meloxicam pending repeat lab with Pcp August 2025) Exercise Freq- continues with steps and walking, and joined video HIT classes and weight training; walking at work and Barriers- some fatigue and traveling and holidays Work-related activity: active Diet Healthy food choices Meals 3 3 meals daily Triple zero yogurt Protein and veggies Starting with protein shake Water 60-80 ounces Snacking: healthier options Fruit and salads Dinner at 5-7 pm B7 l -12 ?Sleep Duration (<6hr)- 6-7 hours Quality- using cpap nightly Stress Degree- moderate Cause-coping PAST MEDICAL HISTORY Diagnosis Date Atypical mole [...] Review of Systems: Review of Systems Constitutional: Positive for fatigue. HENT: Negative. Eyes: No hx of glaucoma Respiratory: Negative. Cardiovascular: Negative. Gastrointestinal: Had some sl diarrhea when on vacation; Tracking food Dietary fiber Endocrine: No hx of hypothyroidism Genitourinary: No renal stones Musculoskeletal: Positive for myalgias. Skin: Negative. Allergic/Immunologic: Negative. Neurological: Negative. Hematological: Negative. Psychiatric/Behavioral: Negative. PAST SURGICAL HISTORY Procedure Laterality Date BREAST BIOPSY 07/28/2015 COLONOSCOPY 12/13/2024 COLONOSCOPY FLX DX W/COLLJ SPEC WHEN PFRMD 11/19/2013 Colonoscopy COLONOSCOPY FLX DX W/COLLJ SPEC WHEN PFRMD N/A 11/22/2016 COLONOSCOPY FLX DX W/COLLJ SPEC WHEN PFRMD 12/13/2019 Colonoscopy 5 year interval EXTRACTION, ERUPTED TOOTH OR EXPOSED ROOT (ELEVATION AND/OR FORCEPS REMOVAL) 1999 wisdom teeth INSERT INTRAUTERINE DEVICE 07/05/2015, 06/22/2020 LAPAROSCOPIC CHOLECYSTECTOMY 08/30/2022 MAST MODF RAD W/AX LYMPH NOD W/WO PECT/ABELARDO MIN Right 02/05/2016 SALPINGECTOMY COMPLETE/PARTIAL UNI/BI SPX 06/22/2020 bilateral salpingectomy, sterilization, IUD insertion Social History Tobacco Use Smoking status: Former Current packs/day: 0.00 Average packs/day: 0.3 packs/day for 11.4 years (2.8 ttl pk-yrs) Types: Cigarettes Start date: 1995 Quit date: 02/20/2007 Years since quittin.3 Passive exposure: Past Smokeless tobacco: Never Vaping Use Vaping status: Never Used Substance Use Topics Alcohol use: Yes Alcohol/week: 2.0 standard drinks of alcohol Types: 1 Glasses of wine, 1 Cans of beer per week Comment: occasional Drug use: No PE- BP 102/70 Pulse 77 Ht 166.4 cm (5' 5.5) Wt 98.5 kg (217 lb 3.2 oz) LMP 07/05/2015 (Exact Date) BMI 35.59 kg/m Physical Exam Vitals reviewed. Constitutional: Appearance: [...] Monocytes % 02/10/2023 7.5 % Final Abs [place] 02/10/2023 0.83 <0.87 k/uL Final Eosinophils % [...] weight loss management. Body mass index is 35.59 kg/m . Assessment/Plan: ASSESSMENT/PLAN: 1. Class 3 severe obesity with serious comorbidity in adult (HCC) - ICD9: 278.01, ICD10: E66.813 (primary diagnosis) Weight decreasing - Behavioral and pharmacological intervention Tameka Allan is a 49-year-old female with a history of obesity, presenting for follow-up on weight management and recent lab results. Tameka reports a weight of 217 lbs, down from 223 lbs at her last visit, with a goal weight of 160 lbs. She is currently taking Mounjaro 15 mg, which she started in October, and Topamax 25 mg. She denies experiencing hunger or cravings. She is also taking Plaquenil and meloxicam, and was previously taking 6 extra strength Tylenol (500 mg) per day, but has since discontinued and recent elevation ofALT noted per terminal gauger supervisor. She reports significant fatigue since mid-April, which she attributes to her medications. She also reports joint pain, which she attributes to inflammation. She has been following up with rheumatologyand has had positive ADA testing. She reports that her ferritin level was 430 ng/mL, which she was told was due to inflammation. She also reports that her ALT was slightly elevated at 39 U/L, which she attributes to her previous Tylenol use. Today I have encouraged and counseled patient and we have agreed upon the following recommendations: - Your current weight is 217 lbs, down from 223 lbs at your last visit. Your goal weight remains 160 lbs. Great progress! - Continue taking Mounjaro 15 mg as prescribed. [facility] 90[facility]day [facility] You may start the new supply on June 20. - Discontinue Topamax, as you are not experiencing hunger or cravings, and we do not want to add toyour fatigue. We discussed your liver enzymes and Tylenol use: - Your ALT was slightly elevated (39, with a cutoff of 35) on a prior test, likely due to taking 6 extra-strength Tylenol (500 mg each) daily. Now that you have stopped taking Tylenol, we expect yourliver enzymes to improve. - Rheumatology is/will monitor your liver function. If your levels remain elevated or worsen, please let me know. We discussed your fatigue and joint pain: - Fatigue may be a side effect of your current medications, Plaquenil and meloxicam. Continue taking meloxicam as directed until your next rheumatology visit. - Your ferritin level was elevated (430), which may indicate inflammation contributing to your joint pain. Continue following up with rheumatology for further evaluation and management. We discussed your diet and activity: - You are doing well with your diet. Continue focusing on fresh, unprocessed foods and avoid packaged or preservative-laden items, as these can contribute to inflammation. - Aim for 60-70 grams of protein daily. For meals, eat your protein first, followed by vegetables, then starches. - Maintain 3-hour intervals between meals. If dinner is late, consider a snack around 3:30 PM to prevent hunger. - Continue your current exercise routine, including walking and high-intensity interval training (HIIT) classes. We discussed your sleep and CPAP use: - Continue using your CPAP machine. However, your joint pain may be disrupting your sleep. If this persists, inform primary care or juice weigher. 2. Dietary counseling and surveillance - ICD9: V65.3, ICD10: Z71.3 Reviewed principles of energy metabolism caloric intake and expenditure and rationale for treatmentprogram. Also reinforced need for reduced calorie low-fat nutrition and increase physical activity. 3. BMI 40.0-44.9, adult (HCC) - ICD9: V85.41, ICD10: Z68.41 Weight decreasing - Behavioral and pharmacological intervention 4. Inflammatory breast cancer, right (HCC) - ICD9: 174.9, ICD10: C50.911 Continue follow-up with primary care and/or hematology as warranted 5. Type 2 diabetes mellitus with other specified complication, without long-term current use of insulin (HCC) - ICD9: 250.80, ICD10: E11.69 - Controlled - Continue current medications - Counseled on healthy diet and regular exercise - Discussed need for and benefit of weight loss. BMI 35.59 kg/(m^2) 6. HALIMA (obstructive sleep apnea) - ICD9: 327.23, ICD10: G47.33 Continue CPAP nightly Lenore Morelos APRN.CAMILLA Patient is doing well otherwise, continues lifestyle modification. Patient remains motivated to lose weight. This note was partially generated using [employer] voice recognition system, and there may be [...] loss and maintenance. We discussed that cardiovascular exerciseis most beneficial for weight loss initially, but it is important to combine resistance training asthere is a loss of lean muscle mass with weight loss. Lenore Morelos APRN [facility] Obesity Medicine I spent a total of 30 minutes on the date of the service which included preparing to see the patient, tggb-wi-zsow patient care, completing clinical documentation, obtaining and/or reviewing separately obtained history, performing a medically appropriate examination, counseling and educating the pat ient/family/caregiver, ordering medications, tests, or procedures, communicating with other HCPs (not separately reported), independently interpreting results (not separately reported), communicatingresults to the patient/family/caregiver, and care coordination (not [...] handouts given to patient. documented in this encounterChildren'S [facility]08-25-2025 NoteHNO ID: [id number] Author: LENORE MORELOS APRN.CAMILLA Service: ? Author Type: Nurse Practitioner Type: Progress Notes Filed: 06/06/2025 10:58 Note Text: Obesity Medicine Followup Note Recording using ambient AI software for draft documentation of the visit was discussed with the patient/authorized territory service representative; all questions welcomed and answered. Patient/authorized territory service representative agreed to proceed 06-06-25 Patient HPI: is 48 year old Female [...] since last visit: Goal weight 160 Today's weight:217 lbs Last weight: 223 BMI: 35.59 Today's concerns: New labs Current Obesity Medications: Mounjaro 15 mg subcutaneous weekly injection topiramate 25 mg tablet not taking at this time some joint pain and follow up with rheumatology and temporarily stopped. Increased fatigue No real hunger or cravings Reports no changes with the Mounjaro Bs controlled (Recent sl elevated ALT tylenol tid extra strength which could have elevated ALT was 39 Now on meloxicam pending repeat lab with Pcp August 2025) Exercise Freq- continues with steps and walking, and joined video [employer] classes and weight training; walking at work and Barriers- some fatigue and traveling and holidays Work-related activity: active Diet Healthy food choices Meals 3 3 meals daily Triple zero yogurt Protein and veggies Starting with protein shake Water 60-80 ounces Snacking: healthier options Fruit and salads Dinner at 5-7 pm B7 l -12 ?Sleep Duration (<6hr)- 6-7 hours Quality- using cpap nightly Stress Degree- moderate Cause-coping PAST MEDICAL HISTORY Diagnosis Date Atypical mole [...] Review of Systems: Review of Systems Constitutional: Positive for fatigue. HENT: Negative. Eyes: No hx of glaucoma Respiratory: Negative. Cardiovascular: Negative. Gastrointestinal: Had some sl diarrhea when on vacation; Tracking food Dietary fiber Endocrine: No hx of hypothyroidism Genitourinary: No renal stones Musculoskeletal: Positive for myalgias. Skin: Negative. Allergic/Immunologic: Negative. Neurological: Negative. Hematological: Negative. Psychiatric/Behavioral: Negative. PAST SURGICAL HISTORY Procedure Laterality Date BREAST BIOPSY 07/28/2015 COLONOSCOPY 12/13/2024 COLONOSCOPY FLX DX W/COLLJ SPEC WHEN PFRMD 11/19/2013 Colonoscopy COLONOSCOPY FLX DX W/COLLJ SPEC WHEN PFRMD N/A 11/22/2016 COLONOSCOPY FLX DX W/COLLJ SPEC WHEN PFRMD 12/13/2019 Colonoscopy 5 year interval EXTRACTION, ERUPTED TOOTH OR EXPOSED ROOT (ELEVATION AND/OR FORCEPS REMOVAL) 1999 wisdom teeth INSERT INTRAUTERINE DEVICE 07/05/2015, 06/22/2020 LAPAROSCOPIC CHOLECYSTECTOMY 08/30/2022 MAST MODF RAD W/AX LYMPH NOD W/WO PECT/ABELARDO MIN Right 02/05/2016 SALPINGECTOMY COMPLETE/PARTIAL UNI/BI SPX 06/22/2020 bilateral salpingectomy, sterilization, IUD insertion Social History Tobacco Use Smoking status: Former Current packs/day: 0.00 Average packs/day: 0.3 packs/day for 11.4 years (2.8 ttl pk-yrs) Types: Cigarettes Start date: 1995 Quit date: 02/20/2007 Years since quittin.3 Passive exposure: Past Smokeless tobacco: Never Vaping Use Vaping status: Never Used Substance Use Topics Alcohol use: Yes Alcohol/week: 2.0 standard drinks of alcohol Types: 1 Glasses of wine, 1 Cans of beer per week Comment: occasional Drug use: No PE- BP 102/70 Pulse 77 Ht 166.4 cm (5' 5.5) Wt 98.5 kg (217 lb 3.2 oz) LMP 07/05/2015 (Exact Date) BMI 35.59 kg/m? Physical Exam Vitals reviewed. Constitutional: Appearance: Normal appearance. Neurological: General: No focal def (more content not included)...[facility] 05-26-2025 Telephone encounter Note* Telephone Encounter - Jodie Hawk LPN - 05/26/2025 1:30 PM EDT Labs printed and scanned into chart [facility]08-14-2025 Miscellaneous Notes* Telephone Encounter - Jodie Hawk LPN - 05/26/2025 1:30 PM EDT Labs printed and scanned into chart documented in this encounterChildren[facility] Telephone encounter Note * Telephone Encounter - Dara Muir LPN - 05/09/2025 1:32 PM EDT Patient requesting the following refill Refill(s) Requested: Requested Prescriptions Pending Prescriptions Disp Refills topiramate (TOPAMAX) 25 mg tablet [Pharmacy Med Name: TOPIRAMATE 25 MG TABLET] 90 tablet 0 Sig: TAKE 1 TABLET BY MOUTH EVERYDAY AT BEDTIME ALLERGIES Allergen Reactions Seasonal Allergies Cough (home) [phone] (work) [phone] (cell) Last Office Visit Date: 02/09/2024 Last Distance Health Visit: 02/09/2025 Future Appointment: 06/06/2025 The patients preferred pharmacy has been captured for this encounter? yes Request is for script(s) to be escript to pharmacy. Dara Muir LPN [facility] Work Phone: [phone]) 731-121407-28-2025 Miscellaneous Notes* Telephone Encounter - Dara Muir LPN - 05/09/2025 1:32 PM EDT Patient requesting the following refill Refill(s) Requested: Requested Prescriptions Pending Prescriptions Disp Refills topiramate (TOPAMAX) 25 mg tablet [Pharmacy Med Name: TOPIRAMATE 25 MG TABLET] 90 tablet 0 Sig: TAKE 1 TABLET BY MOUTH EVERYDAY AT BEDTIME ALLERGIES Allergen Reactions Seasonal Allergies Cough (home) [phone] (work) [phone] (cell) Last Office Visit Date: 02/09/2024 Last [facility] Visit: 02/09/2025 Future Appointment: 06/06/2025 The patients preferred pharmacy has been captured for this encounter? yes Request is for script(s) to be escript to pharmacy. Dara Muir LPN documented in this encounterChildren'S [facility]04-30-2025 Instructions* Patient Instructions* Lenore Morelos APRN.SUPERVISOR CUTTING AND SEWING ROOM - 02/09/2025 8:18 AM EDT Images from [...] loss after 72 week randomized controlled study. It'sonly approved for diabetes currently, but likely will [...] dose escalation. Video Instructions for Injecting Mounjaro: https://www.youDigiSat Technologyube.com/watch?v=nxnhBdyTSZ0 Link to Clinical Allergist Website [employer] Medication Guide: https://pi.FindThatCourse.Imaging3/us/yykjtrbv-zm-pb.pdf?s=mg Written pen instructions: https://uspl.FindThatCourse.Imaging3/mounjaro/mounjaro.html#ug0 Tirzepatide: Patient drug information What is Mounjaro? [...] It is not known if Mounjaro is safeand effective for use in children under 18 [...] SUMMARY WITH WARNINGS Important Facts About Mounjaro ([id number]). It is also known as tirzepatide. Mounjaro [...] It is not known if Mounjaro is safeand effective for use in children under 18 years of age. Warnings Mounjaro may cause tumors in the thyroid, including thyroid cancer. Watch for possible symptoms, such as a lump or swelling in the neck, hoarseness, trouble swallowing, or shortness of breath. If youhave a symptom, tell your healthcare provider. Do [...] in some people who use Mounjaro. Tell yourhealthcare provider right away if you get symptoms [...] effects. You can report side effects at 9-535-NNX-8325 or www.fda.gov/medwatch. Before using Your healthcare provider [...] or plan to breastfeed? It is not knownif Mounjaro will harm your unborn baby. Do you take control pills by mouth? These may not work as well while using Mounjaro. Your healthcare provider may recommend another type of control when you start Mounjaro or when you increase your dose. Do you take any other prescription medicines or qrnv-cne-ucslhet drugs, vitamins, or herbal supplements? How to [...] promptly. Learn more For more information, call 8-074-IbmxnBc ( ) or go to www.[employer]. This information does not take the place of talking with your healthcare provider. Be sure to talk to your healthcare provider about Mounjaro and how to take it. Your healthcare provider is the best person to help you decide if Mounjaro is right for you. Mounjaro and its delivery device base are trademarks owned or licensed by [employer], its subsidiaries, or affiliates. NIGEL MOSER CBS FEBRUARY2022 Access [employer] Online Online for additional drug information, tools, and databases. Copyright 9705-6266 [employer]. All rights reserved. 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 What are some things I need to know or do while I take this drug? Tell all of your health care providers that you take this drug. This includes your doctors, nurses,pharmacists, and dentists. Wear disease medical alert ID [...] prevent . If you take control pills, youmay need to switch to another type of hormone-based control like a vaginal ring if your doctor tells you to. If another type of hormone-based control is not an option, use some other kindof control also, like a condom. Do this [...] of stress such as fever, infection, injury, orsurgery. A change in physical activity, exercise, or [...] , plan on getting , or are breast- feeding. You will need to talk about the [...] right away if you have any of thefollowing signs or symptoms that may be related to a very bad side effect: Signs of an allergic reaction, like rash; hives; itching; red, swollen, blistered, or peeling skin with or without fever; wheezing; tightness in the chest or throat; trouble breathing, swallowing, ortalking; unusual hoarseness; or swelling of the mouth, [...] no side effects or only have minor sideeffects. Call your doctor or get medical help [...] all information given to you. Follow all instructionsclosely. It is given as a shot into the fatty part of the skin on the top of the thigh, belly area, or upperarm. If you will be giving yourself the [...] If you have any questions about this drug,please talk with your doctor, nurse, pharmacist, or other health care provider. If you think there has been an overdose, call your poison control center or get medical care right away. Be ready to tell or show what was taken, how much, and when it happened. Last Reviewed [id number] Consumer Information Use and Disclaimer This generalized [...] that may apply to a specific patient. Itis not intended to be medical advice or [...] or approved for treating a specific patient. [employer] and its affiliatesdisclaim any warranty or liability relating to this information or the use thereof. The use of thisinformation is governed by the Terms of Use, available at https://www.WakeMate.com/en/know/buexexdj-hkbhksgbxrldz-wyzui. Education included discussing thyroid C-cell tumor risk [...] such as persistent severe abdominal pain, sometimes radiatingto the back, with or without vomiting. If [...] would recommend using 2 different kind if controlmethods, Due to several anomaly( if female in [...] at or call local emergency services at 049. What other information should I know? Keep all appointments with your doctor and the laboratory. Do not let anyone else take your medication. Topiramate use needs to be monitored closely. Prescriptions may be refilled only a limited number of times. Keep a written list of all of your prescription and nonprescription (yrzr-myw-uzdhcxi) medicines, in addition to vitamins, minerals, or [...] make up for a missed one. Sources Pubmed Health: http://www.ncbi.nlm.nih.gov/pubmedhealth/FIK8527863/ Drugs.com http://www.drugs.com/pro/topiramate.html documented in this encounterChildren'S [facility]04-30-2025 NoteHNO ID: [id number] Author: LENORE MORELOS APRN.CNP Service: ? Author [...] visit. Either the patient or their legal territory service representative has been informed of the risks and [...] oz) LMP 07/05/2015 (Exact (more content not included)...[facility]04-30-2025 History of Present illness Narrative* Lenore Morelos, SYDNEE.SUPERVISOR CUTTING AND SEWING ROOM - 02/09/2025 8:12 AM EDT Obesity Medicine Followup Note This Team Access Model visit is a virtual visit. It required patient-provider interaction for the medical decision making as documented below. Consent was obtained to complete today's distance Topioit. I have communicated my name and active licensure. The patient's identity and physical location wereverified at the time of this visit. Either the patient or their legal territory service representative has been informed of the risks and benefits of -- and alternatives to -- treatment through a remote evaluation andconsents to proceed with the evaluation remotely. 02-09-25 Patient HPI: is 48 year old Female who presents with diagnosis of class III severe obesity with PMHinflammatory breast cancer on the right, and Type 2 diabetes mellitus for follow-up evaluation of her obesity and related complications. In our previous visits we have outlined an individualized lifes tyle intervention including a personalized nutrition recommendations and [...] Monocytes % 02/10/2023 7.5 % Final Abs [place] 02/10/2023 0.83 <0.87 k/uL Final Eosinophils % [...] in adult - ICD9: 278.01, ICD10: E66.813 (primarydiagnosis) Weight increasing - Behavioral and pharmacological intervention [...] such as persistent severe abdominal pain, sometimes radiatingto the back, with or without vomiting. If [...] caloric intake and expenditure and rationale for treatmentprogram. Also reinforced need for reduced calorie low-fat [...] sugar foods and increase activity Lenore Morelos APRN.SUPERVISOR CUTTING AND SEWING ROOM Patient is doing well otherwise, continues lifestyle modification. Patient remains motivated to lose weight. This note was partially generated using [employer] voice recognition system, and there may be [...] loss and maintenance. We discussed that cardiovascular exerciseis most beneficial for weight loss initially, but it is important to combine resistance training asthere is a loss of lean muscle mass with weight loss. Lenore Morelos APRN [facility] Obesity Medicine I spent a total of 30 minutes on the date of the service which included preparing to see the patient, trdd-ek-lcxe patient care, completing clinical documentation, obtaining and/or reviewing separately obtained history, performing a medically appropriate examination, counseling and educating the pat ient/family/caregiver, ordering medications, tests, or procedures, communicating with other HCPs (not separately reported), independently interpreting results (not separately reported), communicatingresults to the patient/family/caregiver, and care coordination (not [...] handouts given to patient. documented in this encounterChildren'S [facility]03-11-2025 History of Present illness Narrative* Ludy Lee APRN.CAMILLA - 12/21/2024 8:00 AM EDT FOLLOW UP VISIT - ENDOSCOPY Tameka Allan 1975 [id number] REFERRING PHYSICIAN: No referring provider defined for [...] with the patient, and the patient has hadthe opportunity to ask questions and have questions [...] as needed for worsening/no improvement. Ludy Lee APRN.SUPERVISOR CUTTING AND SEWING ROOM documented in this encounterChildren'S Hospital For Rehabilitation03-11-2025 NoteHNO ID: [id number] Author: LUDY LEE APRN.CAMILLA Service: ? Author Type: Nurse Practitioner Type: Progress Notes Filed: 12/21/2024 08:18 Note Text: FOLLOW UP VISIT - ENDOSCOPY Tameka Allan 1975 [id number] REFERRING PHYSICIAN: No referring provider defined for [...] as needed for worsening/no improvement. Ludy Lee APRN.[facility] Note* Discharge Instr - Nursing - Cuca Ferguson RN - 12/13/2024 8:36 AM EST The patient received a copy of Colonoscopy discharge instructions that contain information for how to contact the physician who performed the procedure and when to seek medical care. [facility]03-03-2025 Miscellaneous Notes* Discharge Instr - Nursing - Cuca Ferguson RN - 12/13/2024 8:36 AM EST The patient received a copy of Colonoscopy discharge instructions that contain information for how to contact the physician who performed the procedure and when to seek medical care. documented in this encounterChildren'S Hospital [facility]03-03-2025 History and physical note * Rico Clifford MD - 12/13/2024 8:00 AM EST HISTORY AND PHYSICAL Tameka Allan : 1975 [...] colonoscopy was 12/[address] Hanna at [facility]. Sedation:Fentanyl 100 micrograms IV, Midazolam 5 [...] INTRAUTERINE route as directed. put in at [facility] peg 3350-Electrolytes (GOLYTELY) 236-22.74-6.74 -5.86 gram suspension [...] last menstrual period 07/05/2015, SpO2 100%. Body massindex is 37.3 kg/m . HEENT: Normal cephalic, [...] Will plan for lower endoscopy. We discussed therisks and benefits of the planned endoscopy. I have informed the patient that complications can occur including failure to complete the endoscopy and perforation. Tameka had the opportunity to ask questions concerning the planned endoscopy. My staff has also explained the procedure to the patient inunderstandable terms and has given the patient printed material concerning the procedure. Tameka freely consents to surgery. I plan to use Golytely bowel preparation I have explained to the patient the difference between IV conscious sedation and MAC anesthesia - and I have offered either, according to the patient's wishes. I have explained that with IV conscioussedation there is no anesthesia provider available and [...] edited and updated as necessary. Ludy Lee APRN.SUPERVISOR CUTTING AND SEWING ROOM UPDATED HISTORY AND PHYSICAL EXAMINATION SERVICE DATE: 12/13/2024 SERVICE TIME: 7:48 AM PHYSICAL EXAM MUST BE COMPLETED ON ADMISSION The History and Physical (completed in the past 30 days) has been reviewed and the patient has beenexamined. The contents accurately reflect the patient's condition with the following additions or revisions since the H&P was completed. Examination indicates no changes. This H&P can be found in the attached. SIGNATURE: Rico Clifford III, MD PATIENT NAME: Tameka Allan DATE: December 13, 2024 TIME: 7:48 AM [facility]03-[facility] History and physical note* Rico Clifford MD - 12/13/2024 8:00 AM EST HISTORY AND PHYSICAL Tameka Allan : 1975 REFERRING PHYSICIAN: No referring provider defined for this encounter. CHIEF COMPLAINT: Patient presents with: Cancer Surveillance: Colonoscopy consultation HPI: Tameka is a 48 year old female referred for endoscopy. Tameka notes due for colon cancer screening, family hx of colon cancer in father & personal hx of polyps(2016). Tameka denies abdominal pain.. Tameka denies diarrhea. Tameka denies constipation. Tameka denies a change in bowel habits. Tameka denies melena. Tameka denies bright red blood per rectum. Tameka denies hemorrhoids. Tameka denies heartburn. Tameka denies dysphagia. Tameka denies a history of ulcers/ peptic ulcer disease. Tameka's medical hx is significant for obesity, HALIMA c/w CPAP, T2DM and inflammatory breast cancer (2015). Tameka has undergone prior endoscopy. Last colonoscopy was 12/[address] Hanna at [facility]. Sedation:Fentanyl 100 micrograms IV, Midazolam 5 [...] INTRAUTERINE route as directed. put in at [facility] peg 3350-Electrolytes (GOLYTELY) 236-22.74-6.74 -5.86 gram suspension [...] last menstrual period 07/05/2015, SpO2 100%. Body massindex is 37.3 kg/m . HEENT: Normal cephalic, [...] Will plan for lower endoscopy. We discussed therisks and benefits of the planned endoscopy. I have informed the patient that complications can occur including failure to complete the endoscopy and perforation. Tameka had the opportunity to ask questions concerning the planned endoscopy. My staff has also explained the procedure to the patient inunderstandable terms and has given the patient printed material concerning the procedure. Tameka freely consents to surgery. I plan to use Golytely bowel preparation I have explained to the patient the difference between IV conscious sedation and MAC anesthesia - and I have offered either, according to the patient's wishes. I have explained that with IV conscioussedation there is no anesthesia provider available and [...] edited and updated as necessary. Ludy Lee APRN.SUPERVISOR CUTTING AND SEWING ROOM UPDATED HISTORY AND PHYSICAL EXAMINATION SERVICE DATE: 12/13/2024 SERVICE TIME: 7:48 AM PHYSICAL EXAM MUST BE COMPLETED ON ADMISSION The History and Physical (completed in the past 30 days) has been reviewed and the patient has beenexamined. The contents accurately reflect the patient's condition with the following additions or revisions since the H&P was completed. Examination indicates no changes. This H&P can be found in the attached. SIGNATURE: Rico Clifford III, MD PATIENT NAME: Tameka Allan DATE: December 13, 2024 TIME: 7:48 AM documented in this encounterChildren'S Hospital [facility]02-06-2025 Telephone encounter Note * Telephone Encounter - Bridget Todd MA - 11/18/2024 10:49 AM EST Medication pended for the new pharmacy in chart [facility]02-[facility]25 Miscellaneous Notes* Telephone Encounter - Bridget Todd MA - 11/18/2024 10:49 AM EST Medication pended for the new pharmacy in chart documented in this encounterChildren'S Hospital For [facility]01-30-2025 Instructions* Patient Instructions* Shanique Jacinto APRN.SUPERVISOR CUTTING AND SEWING ROOM - 11/11/2024 2:24 PM EST Images from [...] small circular motions. Continue around the entire [place] until you reach 12 o'clock again. Keep your fingers flat and in constant contact with your breast. When the [place] is complete, move in one inch toward the nipple and complete another [place] around the clock. Continue in this pattern [...] skin on the breast or nipple References [employer]. Breast Cancer Accessed 09/13/2013. Angeles Lewis, Noe M, Akshat H. Breast disorders and breast cancer screening. In: Madai DEL CID, ed. [facility]: Current Clinical Medicine 2010. 2nd ed. [place], [place]: Anna Marie Gonzalez; 2010:section 15. Copyright 8847-8270 [facility]. All rights reserved This information is provided by the [facility] and is not intended to replace the medical advice of your doctor or health care provider. Please consult your health care provider for advice about a specific medical condition. For additional health information, please contact the [facility] at the [facility] or toll-free extension [phone]. If you prefer, you may visit [email or web address] documented in this encounterChildren'S Hospital For Rehabilitation01-30-2025 History of Present illness Narrative* Shanique Jacinto APRN.CNP - 11/11/2024 1:30 PM EST Images from the original note were not included. PORSHA Null, O[facility] [address] [place] [address] Date of Visit: 11/11/2024 Patient Name: Tameka Allan Date of : 1975 Established Visit Breast Surgeon: Sade Wesley MD Medical Oncologist: Janna Hay MD SUBJECTIVE Chief Complaint: Patient presents with: Yearly Exam: CBE Results HPI Tameka Allan is a 48 year old female who presents today for review of recent (11/08/2024) annual breast imaging and clinical breast exam. She is an established [facility] She denies current breast concerns including palpable breast lumps or masses, enlarged lymph nodes,pain, tenderness, skin changes, erythema, nipple discharge or breast trauma. Breast history includes: RIGHT axilla core biopsies ---> invasive poorly differentiated carcinoma. Associated necrosis and fibrous parenchyma. Adipose tissue. RIGHT breast core biopsies ---> invasive poorly differentiated carcinoma. ER negative / MD negative / HER2 negative by FISH Clinical staging: IIIB - T4d N1 M0 (Dr. Hay) Genetic testing negative Neoadjuvant AC 4 cycles followed by 12 weekly Taxol treatments, complete clinical response 02/05/2016 RIGHT modified radical mastectomy ---> no evidence of residual malignancy identified. RIGHT axillary lymph node dissection ---> 16 lymph nodes negative for malignancy (0/16). Pathologic staging: ypT0 ypN0 Post-mastectomy XRT completed [...] INTRAUTERINE route as directed. put in at [facility] 1 Intra Uterine Device 0 tirzepatide (MOUNJARO) [...] social history were reviewed by Shanique Jacinto APRN.SUPERVISOR CUTTING AND SEWING ROOM ALLERGIES Allergen Reactions Seasonal Allergies Cough Current Outpatient Medications Medication Sig CPAP/BIPAP/OTHER AutoPAP 5-20 cmH2O Mask per patient preference Lifetime supplies Dx: HALIMA levonorgestrel (LILETTA) 20.1 mcg/24 hrs (6 yrs) 52 mg IUD 1 Each by INTRAUTERINE route as directed. put in at [facility] tirzepatide (MOUNJARO) 15 mg/0.5 mL pen injector [...] discussed with the Patient or Patient's Authorized Gas Plumbing Inspector. Asapplicable, any other physician, advance practice provider, medical student, or other health professional student that will be observing or involved in the sensitive examination for educational or training purposes was discussed with the Patient or Authorized Gas Plumbing Inspector. The Patient or Authorized Gas Plumbing Inspector has agreed to proceed with the sensitive [...] been made and documented today. Other parts ordata were deleted if not relevant for today. Plan as outlined. Follow up: Return in about 1 year (around 11/09/2025) for annual breast imaging, clinical exam. Medical Decision Making: Problems: Low: Stable chronic illness Data: Unique test result(s) reviewed: 3+ Unique test(s) ordered: 1 Risk: Low: Low risk from testing/treatment Medical Decision Making Level: 3 - Low Shanique Jacinto APRN.CNP I verified the medical case manager/nurse documentation in the medical record, and made appropriate changes. I personally performed a history,physical exam and medical decision making. Shanique Jacinto APRN-CAMILLA, OCN * Subha Milton LPN - 11/11/2024 1:28 PM EST Tameka Allan is a 48 year old female who presents to follow up for Yearly Exam (CBE) and Results Pt denies breast pain, redness, left breast nipple drainage and palpable masses. Pt c/o muscle spasms of right back and right shoulder. Pt to discuss massages. Subha Milton LPN documented in this encounterChildren'S Hospital [facility] Rehabilitation01-30-2025 NoteHNO ID: [id number] Author: SHANIQUE JACINTO APRN.CNP Service: ? Author Type: Nurse Practitioner Type: Progress Notes Filed: 12/20/2024 21:06 Note Text: PORSHA Null, OCN [facility] [place] [id number] Date of Visit: 11/11/2024 Patient Name: Tameka Allan Date of : 1975 Established Visit Breast Surgeon: Sade Wesley MD Medical Oncologist: Janna Hay MD SUBJECTIVE Chief Complaint: Patient presents with: Yearly Exam: CBE Results HPI Tameka Allan is a 48 year old female who presents today for review of recent (11/08/2024) annual breast imaging and clinical breast exam. She is an established [facility] patient and was last seen in the [...] invasive poorly differentiated carcinoma. ER negative / MD negative / HER2 negative by FISH Clinical staging: IIIB - T4d N1 M0 (Dr. Hay) Genetic testing negative Neoadjuvant AC 4 cycles followed by 12 weekly Taxol treatments, complete clinical response 02/05/2016 RIGHT modified radical mastectomy ---> no evidence of residual malignancy identified. RIGHT axillary lymph node dissection ---> 16 lymph nodes negative for malignancy (0/16). Pathologic staging: ypT0 ypN0 Post-mastectomy XRT completed (Dr. Leodan Zapein) Interim history: non-surgical weight loss continues / [...] INTRAUTERINE route as directed. put in at [facility] 1 Intra Uterine Device 0 tirzepatide (MOUNJARO) [...] social history were reviewed by Shanique Jacinto APRN.SUPERVISOR CUTTING AND SEWING ROOM ALLERGIES Allergen Reactions Seasonal Allergies Cough Current Outpatient Medications Medication Sig CPAP/BIPAP/OTHER AutoPAP 5-20 cmH2O Mask per patient preference Lifetime supplies Dx: HALIMA levonorgestrel (LILETTA) 20.1 mcg/24 hrs (6 yrs) 52 mg IUD 1 Each by INTRAUTERINE route as directed. put in at [facility] tirzepatide (MOUNJARO) 15 mg/0.5 mL pen injector Inject 15 mg subcu (more content not included)...[facility]01-30-2025 NoteHNO ID: [id number] Author: SUBHA MILTON LPN Service: ? Author [...] right shoulder. Pt to discuss massages. Subha Milton, [facility]01-27-2025 History of Present illness Narrative* Shanique Real RT(R) - 11/08/2024 1:15 PM EST Radiology Service Progress Note PATIENT NAME: Tameka Allan DATE OF SERVICE: November 08, 2024 TIME: 1:28 PM PATIENT IDENTITY VERIFICATION COMPLETED USING TWO (2) IDENTIFIERS: Name and Date of confirmedby patient verbally. FALL SCREENING: Has the patient had 2 falls in the last year or 1 fall with injury or currently using an Ambulatory Assistive Device (Walker, Cane, Wheelchair, Crutches, etc.)? No PATIENT GENDER DATA: Assigned female at . status: : No status:NO. PATIENT RELEVANT IMPLANT DATA REVIEWED: Not Applicable PATIENT PRESENTS WITH AN IMPLANTABLE OR ATTACHED COSMETIC ASSEMBLER: No RADIOLOGY DEPARTMENT: Mammography PERIPHERAL IV DATA: Not applicable SIGNED BY: MIC Abel) November 08, 2024 1:28 PM documented in this encounterChildren[facility]01-27-2025 NoteHNO ID: [id number] Author: SHANIQUE REAL RT(R) Service: ? Author [...] PATIENT PRESENTS WITH AN IMPLANTABLE OR ATTACHED COSMETIC ASSEMBLER: No RADIOLOGY DEPARTMENT: Mammography PERIPHERAL IV DATA: Not applicable SIGNED BY: MIC Abel) November 08, 2024 1:28 [facility]01-27-2025 History of Present illness Narrative* Ludy Lee, SYDNEE.SUPERVISOR CUTTING AND SEWING ROOM - 11/08/2024 9:30 AM EST HISTORY AND PHYSICAL Tameka Allan : 1975 REFERRING PHYSICIAN: No referring provider defined for this encounter. CHIEF COMPLAINT: Patient presents with: Cancer Surveillance: Colonoscopy consultation HPI: Tameka is a 48 year old female referred for endoscopy. Tameka notes due for colon cancer screening, family hx of colon cancer in father & personal hx of polyps(2016). Tameka denies abdominal pain.. Tameka denies diarrhea. Tameka denies constipation. Tameka denies a change in bowel habits. Tameka denies melena. Tameka denies bright red blood per rectum. Tameka denies hemorrhoids. Tameka denies heartburn. Tameka denies dysphagia. Tameka denies a history of ulcers/ peptic ulcer disease. Tameka's medical hx is significant for obesity, HALIMA c/w CPAP, T2DM and inflammatory breast cancer (2015). Tameka has undergone prior endoscopy. Last colonoscopy was 12/[address] Hanna at [facility]. Sedation:Fentanyl 100 micrograms IV, Midazolam 5 [...] INTRAUTERINE route as directed. put in at [facility] peg 3350-Electrolytes (GOLYTELY) 236-22.74-6.74 -5.86 gram suspension [...] last menstrual period 07/05/2015, SpO2 100%. Body massindex is 37.3 kg/m . HEENT: Normal cephalic, [...] Will plan for lower endoscopy. We discussed therisks and benefits of the planned endoscopy. I have informed the patient that complications can occur including failure to complete the endoscopy and perforation. Tameka had the opportunity to ask questions concerning the planned endoscopy. My staff has also explained the procedure to the patient inunderstandable terms and has given the patient printed material concerning the procedure. Tameka freely consents to surgery. I plan to use Golytely bowel preparation I have explained to the patient the difference between IV conscious sedation and MAC anesthesia - and I have offered either, according to the patient's wishes. I have explained that with IV conscioussedation there is no anesthesia provider available and [...] edited and updated as necessary. Ludy Lee APRN.SUPERVISOR CUTTING AND SEWING ROOM documented in this encounterChildren'S Hospital For Rehabilitation01-27-2025 NoteHNO ID: [id number] Author: LUDY LEE APRN.CAMILLA Service: ? Author [...] cancer in father AND personal hx of polyps(2016). Tameka denies abdominal pain.. Tameka denies diarrhea. [...] colonoscopy was 12/[address] Hanna at [facility]. Sedation:Fentanyl 100 micrograms IV, Midazolam 5 [...] INTRAUTERINE route as directed. put in at [facility] peg 3350-Electrolytes (GOLYTELY) 236-22.74-6.74 -5.86 gram suspension [...] surgeon. Will plan for lower endoscopy. We d (more content not included)...[facility] 10-22-2024 Instructions* Patient Instructions* Lenore Morelos APRN.[facility] - 10/22/2024 9:35 AM EST Images from [...] loss after 72 week randomized controlled study. It'sonly approved for diabetes currently, but likely will [...] dose escalation. Video Instructions for Injecting Mounjaro: https://www.youDigiSat Technologyube.com/watch?v=nxnhBdyTSZ0 Link to Clinical Allergist Website [employer] Medication Guide: https://pi.FindThatCourse.Imaging3/us/hwsvgsuk-bk-rh.pdf?s=mg Written pen instructions: https://uspl.leonides.com/mounjaro/mounjaro.html#ug0 Tirzepatide: Patient drug information What is Mounjaro? [...] It is not known if Mounjaro is safeand effective for use in children under 18 [...] SUMMARY WITH WARNINGS Important Facts About Mounjaro ([id number]). It is also known as tirzepatide. Mounjaro [...] It is not known if Mounjaro is safeand effective for use in children under 18 years of age. Warnings Mounjaro may cause tumors in the thyroid, including thyroid cancer. Watch for possible symptoms, such as a lump or swelling in the neck, hoarseness, trouble swallowing, or shortness of breath. If youhave a symptom, tell your healthcare provider. Do [...] in some people who use Mounjaro. Tell yourhealthcare provider right away if you get symptoms [...] effects. You can report side effects at 7-762-SEU-0955 or www.fda.gov/medwatch. Before using Your healthcare provider [...] or plan to breastfeed? It is not knownif Mounjaro will harm your unborn baby. Do you take control pills by mouth? These may not work as well while using Mounjaro. Your healthcare provider may recommend another type of control when you start Mounjaro or when you increase your dose. Do you take any other prescription medicines or kgki-itq-lfzihla drugs, vitamins, or herbal supplements? How to [...] promptly. Learn more For more information, call 4-469-AmbrhYx ( ) or go to www.[employer]. This information does not take the place of talking with your healthcare provider. Be sure to talk to your healthcare provider about Mounjaro and how to take it. Your healthcare provider is the best person to help you decide if Mounjaro is right for you. Mounjaro and its delivery device base are trademarks owned or licensed by [employer], its subsidiaries, or affiliates. NIGEL MOSER [employer] FEBRUARY2022 Access AchieveIt Online Online for additional drug information, tools, and databases. Copyright [employer]. All rights reserved. 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 What are some things I need to know or do while I take this drug? Tell all of your health care providers that you take this drug. This includes your doctors, nurses,pharmacists, and dentists. Wear disease medical alert ID [...] prevent . If you take control pills, youmay need to switch to another type of hormone-based control like a vaginal ring if your doctor tells you to. If another type of hormone-based control is not an option, use some other kindof control also, like a condom. Do this [...] of stress such as fever, infection, injury, orsurgery. A change in physical activity, exercise, or [...] , plan on getting , or are breast- feeding. You will need to talk about the [...] right away if you have any of thefollowing signs or symptoms that may be related to a very bad side effect: Signs of an allergic reaction, like rash; hives; itching; red, swollen, blistered, or peeling skin with or without fever; wheezing; tightness in the chest or throat; trouble breathing, swallowing, ortalking; unusual hoarseness; or swelling of the mouth, [...] no side effects or only have minor sideeffects. Call your doctor or get medical help [...] all information given to you. Follow all instructionsclosely. It is given as a shot into the fatty part of the skin on the top of the thigh, belly area, or upperarm. If you will be giving yourself the [...] If you have any questions about this drug,please talk with your doctor, nurse, pharmacist, or other health care provider. If you think there has been an overdose, call your poison control center or get medical care right away. Be ready to tell or show what was taken, how much, and when it happened. Last Reviewed [id number] Consumer Information Use and Disclaimer This generalized [...] that may apply to a specific patient. Itis not intended to be medical advice or [...] or approved for treating a specific patient. [employer] and its affiliatesdisclaim any warranty or liability relating to this information or the use thereof. The use of thisinformation is governed by the Terms of Use, available at https://www.WakeMate.Imaging3/en/know/dpygfaey-cvjrmkywrqxkd-cokhw. Education included discussing thyroid C-cell tumor risk [...] such as persistent severe abdominal pain, sometimes radiatingto the back, with or without vomiting. If this occurs, stop medication immediately and go to ER. The most common adverse reactions include nausea, vomiting, diarrhea, constipation and injection site erythema. These may dissipate over time. Helpful tip GLP-1 RA increases beta cell proliferation. documented in this encounterChildren'S Hospital For Rehabilitation01-10-2025 History of Present illness Narrative* Lenore Morelos APRN.[facility] - 10/22/2024 9:30 AM EST Obesity Medicine Followup Note This Team Access Model visit is a virtual visit. It required patient-provider interaction for the medical decision making as documented below. Consent was obtained to complete today's [employer]. I have communicated my name and active licensure. The patient's identity and physical location wereverified at the time of this visit. Either the patient or their legal territory service representative has been informed of the risks and benefits of -- and alternatives to -- treatment through a remote evaluation andconsents to proceed with the evaluation remotely. 10/22/24 Patient HPI: is 48 year old Female who presents with diagnosis of class III severe obesity with PMHinflammatory breast cancer on the right, and Type 2 diabetes mellitus for follow-up evaluation of her obesity and related complications. In our previous visits we have outlined an individualized lifes tyle intervention including a personalized nutrition recommendations and physical activity optimization. Tameka Allan is here today for follow up evaluation for non surgical metabolic weight loss management. her last office visit was3 month(s) ago with advanced practice registered nurse. Weight loss since last visit: Goal weight 160 Today's weight: 219.9 lbs Last weight: 229 BMI: 36.02 Today's concerns: Libby has been on backorder Stopped metformin Current [...] Monocytes % 02/10/2023 7.5 % Final Abs [place] 02/10/2023 0.83 <0.87 k/uL Final Eosinophils % [...] such as persistent severe abdominal pain, sometimes radiatingto the back, with or without vomiting. If [...] caloric intake and expenditure and rationale for treatmentprogram. Also reinforced need for reduced calorie low-fat [...] Encourage patient to continue CPAP nightly Lenore Morelos APRN.SUPERVISOR CUTTING AND SEWING ROOM Patient is doing well otherwise, continues lifestyle modification. Patient remains motivated to lose weight. This note was partially generated using [employer] voice recognition system, and there may be [...] loss and maintenance. We discussed that cardiovascular exerciseis most beneficial for weight loss initially, but it is important to combine resistance training asthere is a loss of lean muscle mass with weight loss. Lenore Morelos APRN [facility] Obesity Medicine I spent a total of 30 minutes on the date of the service which included preparing to see the patient, qair-fr-trek patient care, completing clinical documentation, obtaining and/or reviewing separately obtained history, performing a medically appropriate examination, counseling and educating the pat ient/family/caregiver, ordering medications, tests, or procedures, communicating with other HCPs (not separately reported), independently interpreting results (not separately reported), communicatingresults to the patient/family/caregiver, and care coordination (not [...] handouts given to patient. documented in this encounterChildren'S [facility] Rehabilitation01-10-2025 NoteHNO ID: [id number] Author: LENORE MORELOS APRN.CAMILLA Service: ? Author Type: Nurse Practitioner Type: Progress Notes Filed: 10/22/2024 17:23 Note Text: Obesity Medicine Followup Note This Team Access Model visit is a virtual visit. It required patient-provider interaction for the medical decision making as documented below. Consent was obtained to complete today's [facility] health visit. I have communicated my name and active licensure. The patient's identity and physical location were verified at the time of this visit. Either the patient or their legal territory service representative has been informed of the risks and [...] Last weight: 229 BMI: 36.02 Today's concerns: Libby has been on backorder Stopped metformin Current Obesity Medications: Libby 15 mg subcutaneous weekly injection Reports minimal [...] Exam Vitals reviewed. Constitutional: (more content not included)...[facility] 10-18-2024 Telephone encounter Note* Telephone Encounter - Dara Muir LPN - 10/18/2024 2:44 PM EST Pharmacy requesting the following refill Refill(s) Requested: Requested Prescriptions Pending Prescriptions Disp Refills MOUNJARO 15 mg/0.5 mL pen injector [Pharmacy Med Name: MOUNJARO 15 MG/0.5 ML PEN] Sig: INJECT 15 MG SUBCUTANEOUSLY ONE TIME A WEEK. ALLERGIES Allergen Reactions Seasonal Allergies Unknown (home) [phone] (work) [phone] (cell) Last Office Visit Date: 02/09/2024 Last Distance Health Visit: 05/19/2024 Future Appointment: 10/22/2024 The patients preferred pharmacy has been captured for this encounter? yes Request is for script(s) to be escript to pharmacy. Dara Muir LPN [facility] Work Phone: 1(746) 608-181001-06-2025 Miscellaneous Notes* Telephone Encounter - Dara Muir LPN - 10/18/2024 2:44 PM EST Pharmacy requesting the following refill Refill(s) Requested: Requested Prescriptions Pending Prescriptions Disp Refills MOUNJARO 15 mg/0.5 mL pen injector [Pharmacy Med Name: MOUNJARO 15 MG/0.5 ML PEN] Sig: INJECT 15 MG SUBCUTANEOUSLY ONE TIME A WEEK. ALLERGIES Allergen Reactions Seasonal Allergies Unknown (home) [phone] (work) [phone] (cell) Last Office Visit Date: 02/09/2024 Last Distance Health Visit: 05/19/2024 Future Appointment: 10/22/2024 The patients preferred pharmacy has been captured for this encounter? yes Request is for script(s) to be escript to pharmacy. Dara Muir LPN documented in this encounterChildren'S Hospital [facility] Rehabilitation12-02-2024 Telephone encounter Note * Telephone Encounter - Dara Muir LPN - 09/13/2024 1:48 PM EST Pharmacy requesting the following refill Refill(s) Requested: Requested Prescriptions Pending Prescriptions Disp Refills MOUNJARO 15 mg/0.5 mL pen injector [Pharmacy Med Name: MOUNJARO 15 MG/0.5 ML PEN] Sig: INJECT 15 MG SUBCUTANEOUSLY ONE TIME A WEEK. ALLERGIES Allergen Reactions Seasonal Allergies Unknown (home) [phone] (work) [phone] (cell) Last Office Visit Date: 02/09/2024 Last Distance Health Visit: 05/19/2024 Future Appointment: 10/22/2024 The patients preferred pharmacy has been captured for this encounter? yes Request is for script(s) to be escript to pharmacy. Dara Muir LPN [facility] Work Phone: 1(769) 403-416412-02-2024 Miscellaneous Notes* Telephone Encounter - Dara Muir LPN - 09/13/2024 1:48 PM EST Pharmacy requesting the following refill Refill(s) Requested: Requested Prescriptions Pending Prescriptions Disp Refills MOUNJARO 15 mg/0.5 mL pen injector [Pharmacy Med Name: MOUNJARO 15 MG/0.5 ML PEN] Sig: INJECT 15 MG SUBCUTANEOUSLY ONE TIME A WEEK. ALLERGIES Allergen Reactions Seasonal Allergies Unknown (home) [phone] (work) [phone] (cell) Last Office Visit Date: 02/09/2024 Last Distance Health Visit: 05/19/2024 Future Appointment: 10/22/2024 The patients preferred pharmacy has been captured for this encounter? yes Request is for script(s) to be escript to pharmacy. Dara Muir LPN documented in this encounterChildren'S [facility] Rehabilitation11-04-2024 Miscellaneous Notes* Telephone Encounter - Dara Muir LPN - 08/16/2024 10:49 AM EST Pharmacy requesting the following refill Refill(s) Requested: Requested Prescriptions Pending Prescriptions Disp Refills MOUNJARO 12.5 mg/0.5 mL pen injector [Pharmacy Med Name: MOUNJARO 12.5 MG/0.5 ML PEN] Sig: INJECT 12.5 MG SUBCUTANEOUSLY ONE TIME A WEEK. ALLERGIES Allergen Reactions Seasonal Allergies Unknown (home) [phone] (work) [phone] (cell) Last Office Visit Date: 02/09/2024 Last Distance Health Visit: 05/19/2024 Future Appointment: 10/22/2024 The patients preferred pharmacy has been captured for this encounter? yes Request is for script(s) to be escript to pharmacy. Dara Muir LPN documented in this encounterChildren'S Hospital [facility] Rehabilitation11-04-2024 Telephone encounter Note * Telephone Encounter - Dara Muir LPN - 08/16/2024 10:49 AM EST Pharmacy requesting the following refill Refill(s) Requested: Requested Prescriptions Pending Prescriptions Disp Refills MOUNJARO 12.5 mg/0.5 mL pen injector [Pharmacy Med Name: MOUNJARO 12.5 MG/0.5 ML PEN] Sig: INJECT 12.5 MG SUBCUTANEOUSLY ONE TIME A WEEK. ALLERGIES Allergen Reactions Seasonal Allergies Unknown (home) [phone] (work) [phone] (cell) Last Office Visit Date: 02/09/2024 Last Distance Health Visit: 05/19/2024 Future Appointment: 10/22/2024 The patients preferred pharmacy has been captured for this encounter? yes Request is for script(s) to be escript to pharmacy. Dara Muir LPN [facility] Work Phone: 1([phone]) 432-512910-28-2024 Telephone encounter Note* Telephone Encounter - Jodie Hawk LPN - 08/09/2024 10:53 AM EDT Patient's Pharmacy is requesting the following refill. Patient's last appointment: 05/19/2024. Next appointment: 10/22/2024 . Requested Prescriptions Pending Prescriptions Disp Refills metFORMIN ER (GLUCOPHAGE XR) 500 mg 24 hr tablet [Pharmacy Med Name: METFORMIN HCL ER 500 MG TABLET] 90 tablet 0 Sig: take 1 tablet by mouth every day with breakfast Patient Phone numbers: [phone] (home) [phone] (work) Request is for script(s) to be escript to pharmacy. Jodie Hawk LPN [facility]10[facility]28[facility] Miscellaneous Notes* Telephone Encounter - Jodie Hawk LPN - 08/09/2024 10:53 AM EDT Patient's Pharmacy is requesting the following refill. Patient's last appointment: 05/19/2024. Next appointment: 10/22/2024 . Requested Prescriptions Pending Prescriptions Disp Refills metFORMIN ER (GLUCOPHAGE XR) 500 mg 24 hr tablet [Pharmacy Med Name: METFORMIN HCL ER 500 MG TABLET] 90 tablet 0 Sig: take 1 tablet by mouth every day with breakfast Patient Phone numbers: [phone] (home) [phone] (work) Request is for script(s) to be escript to pharmacy. Jodie Hawk LPN documented in this encounterChildren'S Hospital [facility] Rehabilitation09-11-2024 Telephone encounter Note * Telephone Encounter - Dara Muir LPN - 06/23/2024 11:50 AM EDT Pharmacy requesting the following refill Refill(s) Requested: Requested Prescriptions Pending Prescriptions Disp Refills MOUNJARO 10 mg/0.5 mL pen injector [Pharmacy Med Name: MOUNJARO 10 MG/0.5 ML PEN] Sig: INJECT 10 MG SUBCUTANEOUSLY ONE TIME PER WEEK ALLERGIES Allergen Reactions Seasonal Allergies Unknown (home) [phone] (work) [phone] (cell) Last Office Visit Date: 02/09/2024 Last [facility] Visit: 05/19/2024 Future Appointment: Visit date not found The patients preferred pharmacy has been captured for this encounter? yes Request is for script(s) to be escript to pharmacy. Dara Muir LPN [facility] Work Phone: 1(837) 881-579109-11-2024 Miscellaneous Notes* Telephone Encounter - Dara Muir LPN - 06/23/2024 11:50 AM EDT Pharmacy requesting the following refill Refill(s) Requested: Requested Prescriptions Pending Prescriptions Disp Refills MOUNJARO 10 mg/0.5 mL pen injector [Pharmacy Med Name: MOUNJARO 10 MG/0.5 ML PEN] Sig: INJECT 10 MG SUBCUTANEOUSLY ONE TIME PER WEEK ALLERGIES Allergen Reactions Seasonal Allergies Unknown (home) [phone] (work) [phone] (cell) Last Office Visit Date: 02/09/2024 Last [facility] Health Visit: 05/19/2024 Future Appointment: Visit date not found The patients preferred pharmacy has been captured for this encounter? yes Request is for script(s) to be escript to pharmacy. Dara Muir LPN documented in this encounterChildren'S Hospital [facility] Rehabilitation08-07-2024 Telephone encounter Note * Telephone Encounter - Whitney Nicole - 05/19/2024 9:15 AM EDT Return in about 12 weeks (around 08/11/2024). Virtual [facility] Miscellaneous Notes* Telephone Encounter - Whitney Yan - 05/19/2024 9:15 AM EDT Return in about 12 weeks (around 08/11/2024). Virtual documented in this encounterChildren'S Hospital For Rehabilitation08-07-2024 Instructions* Patient Instructions* Lenore Morelos APRN.[facility] - 05/19/2024 9:01 AM EDT Images from [...] loss after 72 week randomized controlled study. It'sonly approved for diabetes currently, but likely will [...] dose escalation. Video Instructions for Injecting Mounjaro: https://www.Tellyoube.com/watch?v=nxnhBdyTSZ0 Link to Clinical Allergist Website [employer] Medication Guide: https://pi.FindThatCourse.Imaging3/us/ogcpfhzk-ri-jg.pdf?s=mg Written pen instructions: https://uspl.FindThatCourse.com/mounjaro/mounjaro.html#ug0 Tirzepatide: Patient drug information What is Mounjaro? [...] It is not known if Mounjaro is safeand effective for use in children under 18 [...] SUMMARY WITH WARNINGS Important Facts About Mounjaro ([id number]). It is also known as tirzepatide. Mounjaro [...] It is not known if Mounjaro is safeand effective for use in children under 18 years of age. Warnings Mounjaro may cause tumors in the thyroid, including thyroid cancer. Watch for possible symptoms, such as a lump or swelling in the neck, hoarseness, trouble swallowing, or shortness of breath. If youhave a symptom, tell your healthcare provider. Do [...] in some people who use Mounjaro. Tell yourhealthcare provider right away if you get symptoms [...] effects. You can report side effects at 2-526-KFQ-0607 or www.fda.gov/medwatch. Before using Your healthcare provider [...] or plan to breastfeed? It is not knownif Mounjaro will harm your unborn baby. Do you take control pills by mouth? These may not work as well while using Mounjaro. Your healthcare provider may recommend another type of control when you start Mounjaro or when you increase your dose. Do you take any other prescription medicines or syru-ped-isbizbp drugs, vitamins, or herbal supplements? How to [...] promptly. Learn more For more information, call 7-508-XuccxVh ( ) or go to www.Tenable Network [employer]. This information does not take the place of talking with your healthcare provider. Be sure to talk to your healthcare provider about Mounjaro and how to take it. Your healthcare provider is the best person to help you decide if Mounjaro is right for you. Mounjaro and its delivery device base are trademarks owned or licensed by [employer], its subsidiaries, or affiliates. NIGEL MOSER CBS FEBRUARY2022 Access AchieveIt Online Online for additional drug information, tools, and databases. Copyright 1248-7186 Digital Harbor. All rights reserved. 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 What are some things I need to know or do while I take this drug? Tell all of your health care providers that you take this drug. This includes your doctors, nurses,pharmacists, and dentists. Wear disease medical alert ID [...] prevent . If you take control pills, youmay need to switch to another type of hormone-based control like a vaginal ring if your doctor tells you to. If another type of hormone-based control is not an option, use some other kindof control also, like a condom. Do this [...] of stress such as fever, infection, injury, orsurgery. A change in physical activity, exercise, or [...] , plan on getting , or are breast- feeding. You will need to talk about the [...] right away if you have any of thefollowing signs or symptoms that may be related to a very bad side effect: Signs of an allergic reaction, like rash; hives; itching; red, swollen, blistered, or peeling skin with or without fever; wheezing; tightness in the chest or throat; trouble breathing, swallowing, ortalking; unusual hoarseness; or swelling of the mouth, [...] no side effects or only have minor sideeffects. Call your doctor or get medical help [...] all information given to you. Follow all instructionsclosely. It is given as a shot into the fatty part of the skin on the top of the thigh, belly area, or upperarm. If you will be giving yourself the [...] If you have any questions about this drug,please talk with your doctor, nurse, pharmacist, or other health care provider. If you think there has been an overdose, call your poison control center or get medical care right away. Be ready to tell or show what was taken, how much, and when it happened. Last Reviewed [id number] Consumer Information Use and Disclaimer This generalized [...] that may apply to a specific patient. Itis not intended to be medical advice or [...] or approved for treating a specific patient. Netsket. and its affiliatesdisclaim any warranty or liability relating to this information or the use thereof. The use of thisinformation is governed by the Terms of Use, available at https://www.wolterskluwer.com/en/know/uoxfpkkx-grhgfpscxguqp-umwih. Education included discussing thyroid C-cell tumor risk [...] such as persistent severe abdominal pain, sometimes radiatingto the back, with or without vomiting. If this occurs, stop medication immediately and go to ER. The most common adverse reactions include nausea, vomiting, diarrhea, constipation and injection site erythema. These may dissipate over time. Helpful tip GLP-1 RA increases beta cell proliferation. documented in this encounterChildren'S [facility]08-07-[facility] History of Present illness Narrative* Lenore Morelos APRN.CAMILLA - 05/19/2024 8:30 AM EDT Obesity Medicine Followup Note This Team Access Model visit is a virtual visit. It required patient-provider interaction for the medical decision making as documented below. Consent was obtained to complete today's CXit. I have communicated my name and active licensure. The patient's identity and physical location wereverified at the time of this visit. Either the patient or their legal territory service representative has been informed of the risks and benefits of -- and alternatives to -- treatment through a remote evaluation andconsents to proceed with the evaluation remotely. 05/19/2024 Patient HPI: is 48 year old Female who presents with diagnosis of class III severe obesity with PMHinflammatory breast cancer on the right, and Type 2 diabetes mellitus for follow-up evaluation of her obesity and related complications. In our previous visits we have outlined an individualized lifes tyle intervention including a personalized nutrition recommendations and [...] program and joined video HIT classes and weighttraining; walking at work Barriers- some fatigue and [...] Monocytes % 02/10/2023 7.5 % Final Abs Limestone 02/10/2023 0.83 <0.87 k/uL Final Eosinophils % [...] and discussed with patient to increase cardio e xercise add some weights and increase non- exercise [...] such as persistent severe abdominal pain, sometimes radiatingto the back, with or without vomiting. If [...] caloric intake and expenditure and rationale for treatmentprogram. Also reinforced need for reduced calorie low-fat [...] weight. This note was partially generated using [employer] voice recognition system, and there may be [...] loss and maintenance. We discussed that cardiovascular exerciseis most beneficial for weight loss initially, but it is important to combine resistance training asthere is a loss of lean muscle mass with weight loss. Lenore Morelos APRN [facility] Obesity Medicine I spent a total of 30 minutes on the date of the service which included preparing to see the patient, anqr-hv-devn patient care, completing clinical documentation, obtaining and/or reviewing separately obtained history, performing a medically appropriate examination, counseling and educating the pat ient/family/caregiver, ordering medications, tests, or procedures, communicating with other HCPs (not separately reported), independently interpreting results (not separately reported), communicatingresults to the patient/family/caregiver, and care coordination (not [...] handouts given to patient. documented in this encounterChildren'[facility]07-25-2024 Telephone encounter Note * Telephone Encounter - Dara Muir LPN - 05/06/2024 2:24 PM EDT Pharmacy requesting the following refill Refill(s) Requested: Requested Prescriptions Pending Prescriptions Disp Refills metFORMIN ER (GLUCOPHAGE XR) 500 mg 24 hr tablet [Pharmacy Med Name: METFORMIN HCL ER 500 MG TABLET] 90 tablet 0 Sig: take 1 tablet by mouth every day with breakfast ALLERGIES Allergen Reactions Seasonal Allergies Unknown (home) [phone] (work) [phone] (cell) Last Office Visit Date: 02/09/2024 Last Distance Health Visit: Visit date not found Future Appointment: 05/19/2024 The patients preferred pharmacy has been captured for this encounter? yes Request is for script(s) to be escript to pharmacy. Dara Muir LPN [facility] Work Phone: [phone]) 235-815407-25-2024 Miscellaneous Notes* Telephone Encounter - Dara Muir LPN - 05/06/2024 2:24 PM EDT Pharmacy requesting the following refill Refill(s) Requested: Requested Prescriptions Pending Prescriptions Disp Refills metFORMIN ER (GLUCOPHAGE XR) 500 mg 24 hr tablet [Pharmacy Med Name: METFORMIN HCL ER 500 MG TABLET] 90 tablet 0 Sig: take 1 tablet by mouth every day with breakfast ALLERGIES Allergen Reactions Seasonal Allergies Unknown (home) [phone] (work) [phone] (cell) Last Office Visit Date: 02/09/2024 Last Distance Health Visit: Visit date not found Future Appointment: 05/19/2024 The patients preferred pharmacy has been captured for this encounter? yes Request is for script(s) to be escript to pharmacy. Dara Muir LPN documented in this encounterChildren'S [facility]07-12-2024 Telephone encounter Note * Telephone Encounter - Brittney Bonilla - 04/23/2024 3:05 PM EDT Today's OV faxed to Ramana [facility] Brittney Bonilla [facility] Miscellaneous Notes* Telephone Encounter - Brittney Bonilla - 04/23/2024 3:05 PM EDT Today's OV faxed to Ramana Zapien [facility] Brittney Bonilla * Telephone Encounter - Brittney Bonilla - 04/23/2024 3:01 PM EDT Images from the original note were not included. Message Received: Today Billie Lozoya MD P [facility] Patient needs letter for 30-90 day confirmation letter for insurance. documented in this encounterChildren'S Hospital [facility] Rehabilitation07-12-2024 Telephone encounter Note * Telephone Encounter - Brittney Bonilla - 04/23/2024 3:01 PM EDT Images from the original note were not included. Message Received: Today Billie Lozoya MD P [facility] [place] Patient needs letter for 30-90 day confirmation letter for insurance. [facility] History of Present illness Narrative* Billie Lozoya MD - 04/23/2024 2:15 PM EDT Images from the original note were not included. Pulmonary Consult Patient Name: Tameka Allan Overview Notes of Problems Addressed This Visit Pulmonary HALIMA (obstructive sleep apnea) - Primary S/N [id number] In [facility] ASSESSMENT: H/o HALIMA Treated with CPAP with good response, perfect compliance, very mild leak Using FFM AND Taping mouth Obesity - now in medical bariatric program has lost weight - 30 lbs PLAN: APAP as written Follow with bariatric program Consider improve sleep hygiene Return to Office: 12 months PRIMARY CARE PHYSICIAN: Zainab Fountain (Qual Field Manager) Patient Ms. Allan [facility] Zainab Fountain (Qual Field Manager) requests consultation regarding possible HALIMA. My final recommendations will be communicated to the requesting health care provider by way of the shared medical record for internal providers or letter via the [employer] Postal Service for external providers. CHIEF COMPLAINT: possible HALIMA HPI: This is a 47 year old person who presents with possible HALIMA Never smoked regularly INITIAL VISIT WITH [facility] 05/30/2023 Sleep history: History of snoring HSAT last year - 2021 - HALIMA Given CPAP - tried it for 1-2 weeks and then returned it. Overall sleep: Poor overall Re: sleep To bed: 10-11 SL: 1 hour --Activities while trying to sleep: watching tv - often going to sleep with tv on Wakes for day: 6 am sleep schedule: sleeps in until 7-8 am [...] 261 max - now down 30 lbs [place] Sleepiness Scale: Total: 5 09/29/2023 Pt has [...] INTRAUTERINE route as directed. put in at [facility] ALLERGIES Allergen Reactions Seasonal Allergies Unknown PHYSICAL [...] rhythm, chest symmetric with normal A/P diameter, nochest deformities noted, no chest wall tenderness, diaphragmatic [...] SIGNATURE: Billie Lozoya MD CC: Zainab Fountain (Qual Field Manager) documented in this encounterChildren'S Hospital [facility] Rehabilitation07-09-2024 Telephone encounter Note * Telephone Encounter - Jodie Hawk LPN - 04/20/2024 12:06 PM EDT Patient is requesting the following refill. Patient's last appointment: 02/09/24. Next appointment: 05/07/24 . Requested Prescriptions Pending Prescriptions Disp Refills MOUNJARO 10 mg/0.5 mL pen injector [Pharmacy Med Name: MOUNJARO 10 MG/0.5 ML PEN] Sig: INJECT 10 MG SUBCUTANEOUSLY ONE TIME PER WEEK Patient Phone numbers: [phone] (home) [phone] (work) Request is for script(s) to be escript to pharmacy. Jodie Hawk LPN [facility]07-09-[facility]24 Miscellaneous Notes* Telephone Encounter - Jodie Hawk LPN - 04/20/2024 12:06 PM EDT Patient is requesting the following refill. Patient's last appointment: 02/09/24. Next appointment: 05/07/24 . Requested Prescriptions Pending Prescriptions Disp Refills MOUNJARO 10 mg/0.5 mL pen injector [Pharmacy Med Name: MOUNJARO 10 MG/0.5 ML PEN] Sig: INJECT 10 MG SUBCUTANEOUSLY ONE TIME PER WEEK Patient Phone numbers: [phone] (home) [phone] (work) Request is for script(s) to be escript to pharmacy. Jodie Hawk LPN documented in this encounterChildren'S [facility] Rehabilitation06-17-2024 Telephone encounter Note * Telephone Encounter - Mague Otto - 03/29/2024 2:11 PM EDT Order for PAP supplies signed and faxed back to [facility]. Magueelana Otto [facility] Miscellaneous Notes* Telephone Encounter - Judy Ottoie - 03/29/2024 2:11 PM EDT Order for PAP supplies signed and faxed back to [facility]. Mague Otto documented in this encounterChildren'S Hospital For Rehabilitation04-29-2024 Instructions* Patient Instructions* Lenore Morelos, SYDNEE.[facility] - 02/09/2024 8:39 AM EDT Images from the original note were not included. Dear Jacki Jerrell: It was a pleasure to care [...] loss after 72 week randomized controlled study. It'sonly approved for diabetes currently, but likely will [...] dose escalation. Video Instructions for Injecting Mounjaro: https://www.youtube.com/watch?v=nxnhBdyTSZ0 Link to Clinical Allergist Website Mounjaro.com Medication Guide: https://pi.FindThatCourse.com/us/prmifrnl-jp-ef.pdf?s=mg Written pen instructions: https://uspl.leonides.com/mounjaro/mounjaro.html#ug0 Tirzepatide: Patient drug information What is Mounjaro? [...] It is not known if Mounjaro is safeand effective for use in children under 18 [...] SUMMARY WITH WARNINGS Important Facts About Mounjaro (wsea-[id number]). It is also known as tirzepatide. Mounjaro [...] It is not known if Mounjaro is safeand effective for use in children under 18 years of age. Warnings Mounjaro may cause tumors in the thyroid, including thyroid cancer. Watch for possible symptoms, such as a lump or swelling in the neck, hoarseness, trouble swallowing, or shortness of breath. If youhave a symptom, tell your healthcare provider. Do [...] in some people who use Mounjaro. Tell yourhealthcare provider right away if you get symptoms [...] effects. You can report side effects at 1-884-RAZ-8898 or www.fda.gov/medwatch. Before using Your healthcare provider [...] or plan to breastfeed? It is not knownif Mounjaro will harm your unborn baby. Do you take control pills by mouth? These may not work as well while using Mounjaro. Your healthcare provider may recommend another type of control when you start Mounjaro or when you increase your dose. Do you take any other prescription medicines or ksco-xxn-hasyqvx drugs, vitamins, or herbal supplements? How to [...] promptly. Learn more For more information, call 9-623-VsrduZo ( ) or go to www.[employer]. This information does not take the place of talking with your healthcare provider. Be sure to talk to your healthcare provider about Mounjaro and how to take it. Your healthcare provider is the best person to help you decide if Mounjaro is right for you. Mounjaro and its delivery device base are trademarks owned or licensed by [employer] and [employer], its subsidiaries, or affiliates. NIGEL MOSER CBS FEBRUARY2022 Access AchieveIt Online Online for additional drug information, tools, and databases. Copyright [employer] Harbor. All rights reserved. Contributor Disclosures (For additional information see Tirasterpatide: Drug information) You must carefully read the Consumer Information Use and Disclaimer below in order to understand and correctly use this information. 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 What are some things I need to know or do while I take this drug? Tell all of your health care providers that you take this drug. This includes your doctors, nurses,pharmacists, and dentists. Wear disease medical alert ID [...] prevent . If you take control pills, youmay need to switch to another type of hormone-based control like a vaginal ring if your doctor tells you to. If another type of hormone-based control is not an option, use some other kindof control also, like a condom. Do this [...] of stress such as fever, infection, injury, orsurgery. A change in physical activity, exercise, or [...] , plan on getting , or are breast- feeding. You will need to talk about the [...] right away if you have any of thefollowing signs or symptoms that may be related to a very bad side effect: Signs of an allergic reaction, like rash; hives; itching; red, swollen, blistered, or peeling skin with or without fever; wheezing; tightness in the chest or throat; trouble breathing, swallowing, ortalking; unusual hoarseness; or swelling of the mouth, [...] no side effects or only have minor sideeffects. Call your doctor or get medical help [...] all information given to you. Follow all instructionsclosely. It is given as a shot into the fatty part of the skin on the top of the thigh, belly area, or upperarm. If you will be giving yourself the [...] If you have any questions about this drug,please talk with your doctor, nurse, pharmacist, or other health care provider. If you think there has been an overdose, call your poison control center or get medical care right away. Be ready to tell or show what was taken, how much, and when it happened. Last Reviewed [id number] Consumer Information Use and Disclaimer This generalized [...] that may apply to a specific patient. Itis not intended to be medical advice or [...] or approved for treating a specific patient. [employer] and its affiliatesdisclaim any warranty or liability relating to this information or the use thereof. The use of thisinformation is governed by the Terms of Use, available at https://www.WakeMate.Imaging3/en/know/cgfcuqgc-mbustukqwqorh-ipaup. METFORMIN Using Metformin for weight loss: Metformin [...] (nih.gov) Is metformin a wonder drug? - [facility] Common side effects of this medication include nausea, changes in bowel habits, abdominal discomfort, and flatulence. Taking the medication with food will help. Side effects also typically get betterwith time. Rarely, a severe side effect called [...] MD, clinical director of adult diabetes at [facility], explains why timing metformin HCL [...] night in treating fasting high blood sugar. https://www.BlackArrow.Imaging3/article/319390-soje-ej-b-bvmp-kgozfxinc-nrk-rd-oqzm-g upusyw-kc-veklt/ Metformin: Patient drug information Warning Rarely, metformin may cause too much lactic acid in the blood (lactic acidosis). The risk is higherin people who have kidney problems, liver problems, heart failure, use alcohol, or take other drugslike topiramate. The risk is also higher in people who are 65 or older and in people who are havingsurgery, an exam or test with contrast, or [...] that does not feel normal, very bad upsetstomach or throwing up, feeling very sleepy, shortness [...] one within the past 48 hours, talk withyour doctor. This is not a list of [...] or change the dose of any drug withoutchecking with your doctor. What are some things I need to know or do while I take this drug? All products: Tell all of your health care providers that you take this drug. This includes your doctors, nurses,pharmacists, and dentists. Talk with your doctor before [...] of stress such as fever, infection, injury, orsurgery. A change in physical activity, exercise, or diet may also affect blood sugar. Follow the diet and workout plan that your doctor told you about. If diarrhea happens or you are throwing up, call your doctor. You will need to drink more fluids tokeep from losing too much fluid. Be careful [...] , plan on getting , or are breast- feeding. You will need to talk about the [...] right away if you have any of thefollowing signs or symptoms that may be related to a very bad side effect: Signs of an allergic reaction, like rash; hives; itching; red, swollen, blistered, or peeling skin with or without fever; wheezing; tightness in the chest or throat; trouble breathing, swallowing, ortalking; unusual hoarseness; or swelling of the mouth, [...] no side effects or only have minor sideeffects. Call your doctor or get medical help [...] all information given to you. Follow all instructionsclosely. All products: Take with meals. Keep taking this drug as you have been told by your doctor or other health care provider, even if you feel well. Extended-release tablets: Take with the evening meal if taking once daily. Swallow whole. Do not chew, break, or crush. If you have trouble swallowing, talk with your doctor. documented in this encounterChildren'S [facility]04-29-20[facility] History of Present illness Narrative* Lenore Morelos APRN.CNP - 02/09/2024 8:00 AM EDT Obesity Medicine Followup Note This Team Access Model visit is a virtual visit. It required patient-provider interaction for the medical decision making as documented below. Consent was obtained to complete today's [employer]. I have communicated my name and active licensure. The patient's identity and physical location wereverified at the time of this visit. Either the patient or their legal territory service representative has been informed of the risks and benefits of -- and alternatives to -- treatment through a remote evaluation andconsents to proceed with the evaluation remotely. 02/09/2024 Patient HPI: is 48 year old Female who presents with diagnosis of class III severe obesity with PMHinflammatory breast cancer on the right, and Type 2 diabetes mellitus for follow-up evaluation of her obesity and related complications. In our previous visits we have outlined an individualized lifes tyle intervention including a personalized nutrition recommendations and physical activity optimization. Tameka Allan is here today for follow up evaluation for nonsurgical metabolic weight loss management. her last office visit was 2 month(s) ago with [facility] registered nurse. 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 Discussed with patient continued techniques to manage maladaptive eating behaviors as well as continue her water 60 to 80 ounces daily. Patient continues with intermittent fasting. Encourage patient to increase her cardio patient does continue with activity however with travelingproposes some challenges we discussed other options to [...] caloric intake and expenditure and rationale for treatmentprogram. Also reinforced need for reduced calorie low-fat [...] weight. This note was partially generated using [employer] voice recognition system, and there may be [...] loss and maintenance. We discussed that cardiovascular exerciseis most beneficial for weight loss initially, but it is important to combine resistance training asthere is a loss of lean muscle mass with weight loss. Lenore Morelos APRN [facility] Obesity Medicine I spent a total of 30 minutes on the date of the service which included preparing to see the patient, bmwp-ip-jfbl patient care, completing clinical documentation, obtaining and/or reviewing separately obtained history, performing a medically appropriate examination, counseling and educating the pat ient/family/caregiver, ordering medications, tests, or procedures, communicating with other HCPs (not separately reported), independently interpreting results (not separately reported), communicatingresults to the patient/family/caregiver, and care coordination (not [...] handouts given to patient. documented in this encounterChildren'S [facility]04-05-2024 Miscellaneous Notes* Telephone Encounter - Billie Lozoya MD - 01/16/2024 4:23 PM EDT CPAP ordered - APAP documented in this encounterChildren'S Hospital For Rehabilitation03-01-2024 Miscellaneous Notes* Telephone Encounter - Nathaly Tidwell MA - 12/12/2023 10:00 AM EST Pharmacy interfaced requesting the following refill. Requested Prescriptions Pending Prescriptions Disp Refills MOUNJARO 7.5 mg/0.5 mL pen injector [Pharmacy Med Name: MOUNJARO 7.5 MG/0.5 ML PEN] Sig: INJECT 7.5 MG SUBCUTANEOUSLY ONE TIME PER WEEK Next Appointment: 02/09/2024 Patient Phone numbers: [phone] (home) [phone] (work) Request is for script(s) to be escript to pharmacy. Nathaly Tidwell MA documented in this encounterChildren'S [facility]02-29-2024 History of Present illness Narrative* Armond Page - 12/11/2023 12:11 PM EST Sleep Study Check-In Documentation Date: December 11, 2023 Name: Tameka Allan Comments: HST was returned in working order with all sleep questionnaires Armond Page * MooneyJay - 12/08/2023 2:30 PM EST [facility]# [id number] , date shipped out 12/08 Tracking mailout:[id number] [facility] Tracking return: [id number] * Casey Grubbs III, PhD - 11/19/2023 3:43 PM EST November 19, 2023 Standing PSG Orders signed in the last 90 days None Future PSG Orders signed in the last 90 days None All Prior Sleep Studies (past 365 days) Some values may be hidden. Unless noted otherwise, only the newest values recorded on each date aredisplayed. Sleep Studies HOME SLEEP APNEA TEST (HSAT) [...] and Related Procedures, or if the sleep studyis indicated for other reasons. Indications for study: HALIMA suspected without comorbid medical or sleep disorders Sleep study to be performed: Home Sleep Apnea Test (HSAT) Special instructions: None-follow laboratory protocol [facility] Staff Note: I have read the above protocol, edited as needed, and agree to the plan. Casey Grubbs III, PhD 4:00 PM, 11/19/2023 documented in this encounterChildren'S Hospital For Rehabilitation02-05-2024 Instructions* Patient Instructions* Lenore Morelos APRN.SUPERVISOR CUTTING AND SEWING ROOM - 11/17/2023 9:06 AM EST Images from the original note were not included. Dear Ms. Allan: It was a pleasure to care for you today: Here are today's highlights: Nutrition: Continue low carb and low sugar foods Protein 60-80 grams daily Water 60-80 ounces More fruits and veggies Activity: Increase cardio goal [id number] steps Medications: Continue Mounjaro 7.5 mg weekly injection (increasing) (Continue metformin 500 mg tablet daily, per pcp monitor bs) TIRZEPATIDE (MOUNJARO) Tirzepatide (Mounjaro) is a new combination drug (mimics 2 gut hormones, GLP1 and GIP) which has demonstrated superior weight loss >20% body wt loss after 72 week randomized controlled study. It'sonly approved for diabetes currently, but likely will [...] dose escalation. Video Instructions for Injecting Mounjaro: https://www.youtube.com/watch?v=nxnhBdyTSZ0 Link to Clinical Allergist Website [employer] Medication Guide: https://pi.leonides.com/us/awdyccgu-hi-mi.pdf?s=mg Written pen instructions: https://uspl.leonides.com/mounjaro/mounjaro.html#ug0 Tirzepatide: Patient drug information What is Mounjaro? [...] It is not known if Mounjaro is safeand effective for use in children under 18 [...] SUMMARY WITH WARNINGS Important Facts About Mounjaro ([id number]). It is also known as tirzepatide. Mounjaro [...] It is not known if Mounjaro is safeand effective for use in children under 18 years of age. Warnings Mounjaro may cause tumors in the thyroid, including thyroid cancer. Watch for possible symptoms, such as a lump or swelling in the neck, hoarseness, trouble swallowing, or shortness of breath. If youhave a symptom, tell your healthcare provider. Do [...] in some people who use Mounjaro. Tell yourhealthcare provider right away if you get symptoms [...] effects. You can report side effects at 1-588-KKO-0778 or www.fda.gov/medwatch. Before using Your healthcare provider [...] or plan to breastfeed? It is not knownif Mounjaro will harm your unborn baby. Do you take control pills by mouth? These may not work as well while using Mounjaro. Your healthcare provider may recommend another type of control when you start Mounjaro or when you increase your dose. Do you take any other prescription medicines or jfza-piq-wksrpuu drugs, vitamins, or herbal supplements? How to [...] promptly. Learn more For more information, call 1-316-PkdsdXz ( ) or go to www.Tenable Network Security. This information does not take the place of talking with your healthcare provider. Be sure to talk to your healthcare provider about Mounjaro and how to take it. Your healthcare provider is the best person to help you decide if Mounjaro is right for you. Mounjaro and its delivery device base are trademarks owned or licensed by [employer], its subsidiaries, or affiliates. NIGEL MOSER [employer] FEBRUARY2022 Access AchieveIt Online Online for additional drug information, tools, and databases. Copyright 0819-3990 [employer]. All rights reserved. 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 What are some things I need to know or do while I take this drug? Tell all of your health care providers that you take this drug. This includes your doctors, nurses,pharmacists, and dentists. Wear disease medical alert ID [...] prevent . If you take control pills, youmay need to switch to another type of hormone-based control like a vaginal ring if your doctor tells you to. If another type of hormone-based control is not an option, use some other kindof control also, like a condom. Do this [...] of stress such as fever, infection, injury, orsurgery. A change in physical activity, exercise, or [...] , plan on getting , or are breast- feeding. You will need to talk about the [...] right away if you have any of thefollowing signs or symptoms that may be related to a very bad side effect: Signs of an allergic reaction, like rash; hives; itching; red, swollen, blistered, or peeling skin with or without fever; wheezing; tightness in the chest or throat; trouble breathing, swallowing, ortalking; unusual hoarseness; or swelling of the mouth, [...] no side effects or only have minor sideeffects. Call your doctor or get medical help [...] all information given to you. Follow all instructionsclosely. It is given as a shot into the fatty part of the skin on the top of the thigh, belly area, or upperarm. If you will be giving yourself the [...] If you have any questions about this drug,please talk with your doctor, nurse, pharmacist, or other health care provider. If you think there has been an overdose, call your poison control center or get medical care right away. Be ready to tell or show what was taken, how much, and when it happened. Last Reviewed [id number] Consumer Information Use and Disclaimer This generalized [...] that may apply to a specific patient. Itis not intended to be medical advice or [...] or approved for treating a specific patient. Netsket. and its affiliatesdisclaim any warranty or liability relating to this information or the use thereof. The use of thisinformation is governed by the Terms of Use, available at https://www.WakeMate.com/en/know/juqxxfji-oxqpjkririffk-nghym. documented in this encounterChildren'S [facility]02-05-2024 History of Present illness Narrative* Lenore Morelos APRN.CAMILLA - 11/17/2023 8:30 AM EST Obesity Medicine Followup Note 11/17/2023 Patient HPI: is 47 year old Female who presents with diagnosis of class III severe obesity with PMHinflammatory breast cancer on the right, and Type 2 diabetes mellitus for follow-up evaluation of her obesity and related complications. In our previous visits we have outlined an individualized lifes tyle intervention including a personalized nutrition recommendations and [...] elliptical 10 min ; doing run across su[place]ese with different challenges - during holiday's tapered [...] Monocytes % 02/10/2023 7.5 % Final Abs Limestone 02/10/2023 0.83 <0.87 k/uL Final Eosinophils % [...] such as persistent severe abdominal pain, sometimes radiatingto the back, with or without vomiting. If [...] caloric intake and expenditure and rationale for treatmentprogram. Also reinforced need for reduced calorie low-fat [...] weight. This note was partially generated using [employer] voice recognition system, and there may be [...] loss and maintenance. We discussed that cardiovascular exerciseis most beneficial for weight loss initially, but it is important to combine resistance training asthere is a loss of lean muscle mass with weight loss. Lenore Morelos APRN [facility] Obesity Medicine I spent a total of 30 minutes on the date of the service which included preparing to see the patient, dkls-jz-jqyh patient care, completing clinical documentation, obtaining and/or reviewing separately obtained history, performing a medically appropriate examination, counseling and educating the pat ient/family/caregiver, ordering medications, tests, or procedures, communicating with other HCPs (not separately reported), independently interpreting results (not separately reported), communicatingresults to the patient/family/caregiver, and care coordination (not [...] handouts given to patient. documented in this encounterChildren'S Hospital For Rehabilitation12-12-2023 Miscellaneous Notes* Telephone Encounter - Nathaly Tidwell MA - 09/23/2023 8:36 AM EST Pharmacy interfaced requesting the following refill. Requested Prescriptions Pending Prescriptions Disp Refills MOUNJARO 2.5 mg/0.5 mL pen injector [Pharmacy Med Name: MOUNJARO 2.5 MG/0.5 ML PEN] Sig: INJECT 2.5 MG SUBCUTANEOUSLY WEEKLY Next Appointment: 11/17/2023 Patient Phone numbers: [phone] (home) [phone] (work) Request is for script(s) to be escript to pharmacy. Nathaly Tidwell MA documented in this encounterChildren'S Hospital For Rehabilitation11-15-2023 Instructions* Patient Instructions* Lenore Morelos APRN.SUPERVISOR CUTTING AND SEWING ROOM - 08/27/2023 9:38 AM EST Images from the original note were not included. Dear Ms. Allan It was a pleasure to care for [...] loss after 72 week randomized controlled study. It'sonly approved for diabetes currently, but likely will [...] dose escalation. Video Instructions for Injecting Mounjaro: https://www.youtube.com/watch?v=nxnhBdyTSZ0 Savings Card: https://www.Tenable Network Security/savings-resources Link to Clinical Allergist Website [employer] Medication Guide: https://pi.White Castle/us/tdhuqxqt-gq-zk.pdf?s=mg Written pen instructions: https://uspl.[employer]/mounjaro/mounjaro.html#ug0 Tirzepatide: Patient drug information What is Mounjaro? [...] It is not known if Mounjaro is safeand effective for use in children under 18 [...] SUMMARY WITH WARNINGS Important Facts About Mounjaro (blln-FDQE-CD). It is also known as tirzepatide. Mounjaro [...] It is not known if Mounjaro is safeand effective for use in children under 18 years of age. Warnings Mounjaro may cause tumors in the thyroid, including thyroid cancer. Watch for possible symptoms, such as a lump or swelling in the neck, hoarseness, trouble swallowing, or shortness of breath. If youhave a symptom, tell your healthcare provider. Do [...] in some people who use Mounjaro. Tell yourhealthcare provider right away if you get symptoms [...] effects. You can report side effects at 7-350-TLP-6709 or www.fda.gov/medwatch. Before using Your healthcare provider [...] or plan to breastfeed? It is not knownif Mounjaro will harm your unborn baby. Do you take control pills by mouth? These may not work as well while using Mounjaro. Your healthcare provider may recommend another type of control when you start Mounjaro or when you increase your dose. Do you take any other prescription medicines or gkii-fbv-xqhcekx drugs, vitamins, or herbal supplements? How to [...] promptly. Learn more For more information, call 9-426-PukglHv ( ) or go to www.PhotoRocketunPint Please. This information does not take the place of talking with your healthcare provider. Be sure to talk to your healthcare provider about Mounjaro and how to take it. Your healthcare provider is the best person to help you decide if Mounjaro is right for you. Mounjaro and its delivery device base are trademarks owned or licensed by [employer], its subsidiaries, or affiliates. NIGEL MOSER CBS FEBRUARY2022 Access AchieveIt Online Online for additional drug information, tools, and databases. Copyright [employer] Harbor. All rights reserved. 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 What are some things I need to know or do while I take this drug? Tell all of your health care providers that you take this drug. This includes your doctors, nurses,pharmacists, and dentists. Wear disease medical alert ID [...] prevent . If you take control pills, youmay need to switch to another type of hormone-based control like a vaginal ring if your doctor tells you to. If another type of hormone-based control is not an option, use some other kindof control also, like a condom. Do this [...] of stress such as fever, infection, injury, orsurgery. A change in physical activity, exercise, or [...] , plan on getting , or are breast- feeding. You will need to talk about the [...] right away if you have any of thefollowing signs or symptoms that may be related to a very bad side effect: Signs of an allergic reaction, like rash; hives; itching; red, swollen, blistered, or peeling skin with or without fever; wheezing; tightness in the chest or throat; trouble breathing, swallowing, ortalking; unusual hoarseness; or swelling of the mouth, [...] no side effects or only have minor sideeffects. Call your doctor or get medical help [...] all information given to you. Follow all instructionsclosely. It is given as a shot into the fatty part of the skin on the top of the thigh, belly area, or upperarm. If you will be giving yourself the [...] If you have any questions about this drug,please talk with your doctor, nurse, pharmacist, or other health care provider. If you think there has been an overdose, call your poison control center or get medical care right away. Be ready to tell or show what was taken, how much, and when it happened. Last Reviewed [id number] Consumer Information Use and Disclaimer This generalized [...] that may apply to a specific patient. Itis not intended to be medical advice or [...] or approved for treating a specific patient. Netsket. and its affiliatesdisclaim any warranty or liability relating to this information or the use thereof. The use of thisinformation is governed by the Terms of Use, available at https://www.wolterskluwer.com/en/know/ypbgsyrv-ueoldvqrbqqkg-iiwnf. 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 In our previous visits we have outlined an individualized lifes tyle intervention including a personalized nutrition recommendations and physical activity optimization. Tameka Allan is here today for follow up evaluation for nonsurgical metabolic weight loss management. her last office visit was3 month(s) ago with [facility] registered nurse. Weight loss since last visit: [...] Monocytes % 02/10/2023 7.5 % Final Abs Limestone 02/10/2023 0.83 <0.87 k/uL Final Eosinophils % [...] weights, more walking, a goal of steps 2094-8722. I have also reviewed the possibility using [...] such as persistent severe abdominal pain, sometimes radiatingto the back, with or without vomiting. If [...] complication, without long-term current use of insulin ([facility]) - ICD9: 250.80, ICD10: E11.69 - [...] caloric intake and expenditure and rationale for treatmentprogram. Also reinforced need for reduced calorie low-fat nutrition and increase physical activity. 5. BMI 40.0-44.9, adult ([facility]) - ICD9: V85.41, ICD10: Z68.41 No change to weight today's BMI 39.07 - Behavioral and pharmacological intervention Patient is doing well otherwise, continues lifestyle modification. Patient remains motivated to lose weight. This note was partially generated using [employer] voice recognition system, and there may be [...] loss and maintenance. We discussed that cardiovascular exerciseis most beneficial for weight loss initially, but it is important to combine resistance training asthere is a loss of lean muscle mass with weight loss. Lenore Morelos APRN DNP BMI Obesity Medicine I spent a total of 35 minutes on the date of the service which included preparing to see the patient, awqj-ol-rvtd patient care, completing clinical documentation, obtaining and/or reviewing separately obtained history, performing a medically appropriate examination, counseling and educating the pat ient/family/caregiver, ordering medications, tests, or procedures, communicating with other HCPs (not separately reported), independently interpreting results (not separately reported), communicatingresults to the patient/family/caregiver, and care coordination (not [...] handouts given to patient. documented in this encounterChildren'S [facility] Rehabilitation10-16-2023 Miscellaneous Notes* Telephone Encounter - Nathaly Tidwell MA - 07/28/2023 10:02 AM EDT Patient called requesting the following refill. She is going on vacation and will be out when on vacation so would like a refill before vacation soshe has this while on vacation. Requested Prescriptions Pending Prescriptions Disp Refills semaglutide (OZEMPIC) 2 mg/dose (8 mg/3 mL) pen injector 3 mL 1 Sig: Inject 2 mg subcutaneously one time a week. Next Appointment: 08/27/2023 Patient Phone numbers: [phone] (home) [phone] (work) Request is for script(s) to be escript to pharmacy. Nathaly Tidwell MA documented in this encounterChildren'S Hospital For Rehabilitation08-28-2023 Instructions* Patient Instructions* Lenore Morelos APRN.SUPERVISOR CUTTING AND SEWING ROOM - 06/09/2023 3:50 PM EDT Images from [...] there are various brands including Premier, Aldi, fair life, Each she has approximately 30 g [...] if Medicare or Medicaid, commercial insurances only) https://www.Roozt.com.Imaging3/ozempic/savings-card.html Link to medication guide: https://www.Vergence Entertainment.com/ozempic.pdf Ozempic website: https://www.Vestec/ How to use the pen: https://www.novomedlink.com/diabetes/patient-support/product-education/library/o jrcnvn-ksj-ztskhtfgmywb-for-use.html Link to extra needle tips if needed: https://www.Noblivity/gavin/I41HHE3YVJ?ref_=cm_sw_r_cp_ud_dp_YRMC8T2FY11B9SDHCZ3H What Is Ozempic? Ozempic is a brand-name [...] of semaglutide has been named Wegovy. The medicationwill be delivered as a once- weekly shot, in combination with diet and exercise. [...] a safe, long-term, and healthy way. A [facility] doctor will help you with dosages of Ozempic for weight loss andmight recommend slowly increasing dosage over time to maximize weight loss. The speed at which you lose weight is largely influenced by the amount of lifestyle changes you areable to make: there is no magic weight [...] and while Ozempic is not specifically for weightloss, you may lose some weight while taking it https://Bihu.com/faxdxpo-umplyc-wlpp/ Introduction Ozempic (semaglutide) may be a treatment option for you.Ozempic is used to: help lower blood sugar levels in adults with type 2 diabetes (when used with diet and exercise) help reduce the risk for certain cardiovascular problems (related to the heart or blood vessels) inadults with type 2 diabetes and cardiovascular disease [...] effect you ve had with Ozempic, visit [facility]. What are the serious side effects of [...] your Ozempic treatment. Also, the drug can betaken with or without food. However, Ozempic is [...] 1 and type 2 diabetes. Diabetes-related hair lossisn t fully understood, but it may be [...] CVD, such as statins or angiotensin-converting enzyme (ADAN) inhibitors, may cause hair loss. If you [...] if they bother you or don t goaway during your Ozempic treatment, talk with your doctor. They may suggest diet changes or an gdld-hpi-zlzvbjh (OTC) medication, such as Gas-X (simethicone), to [...] (low blood sugar). Hypoglycemia is a serious sideeffect of Ozempic that can cause severe health [...] your symptoms. Examples of these treatments include anantihistamine such as Benadryl (diphenhydramine) or a hydrocortisone cream. If your doctor confirms you had a mild allergic reaction to Ozempic, they ll decide if you should continue using the drug. If you have symptoms of a severe allergic reaction, such as swelling or trouble breathing, call 911or your local emergency number right away. These symptoms could be life threatening and require immediate medical care. If your doctor confirms you had a serious allergic reaction to Ozempic, they ll have you stop usingthe drug and switch you to a different treatment. Keeping track of side effects During your Ozempic treatment, consider keeping notes on any side effects you re having, especiallyepisodes of hypoglycemia (low blood sugar). Then, you [...] if you ve had any kidney problems. Drugssuch as Ozempic have caused new or worsening [...] However, Ozempic lowers your blood sugar. Alcohol maymake your blood sugar drop, too. So, drinking alcohol during your Ozempic treatment may cause severe hypoglycemia (low blood sugar). Also, chronic (long-term) alcohol use is a common cause of pancreatitis (swelling of the pancreas).Using Ozempic may raise your risk for pancreatitis, [...] to not eat sweets, but rather to findnew things to ADD & enjoy. 3 SWEET [...] or monk fruit since they are zero-calorie, naturally- based sweeteners. Use them only sparingly since they can keep you programmed to like foods with intense sweetness. Aim to avoid artificial sweeteners like you would find in pink (saccharin), blue (aspartame), and yellow(sucralose) packets. 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 In our previous visits we have outlined an individualized lifes tyle intervention including a personalized nutrition recommendations and [...] 2 mile walk in morning working on [employer]-work and travel Work-related activity: Sedentary/active Diet [...] Monocytes % 02/10/2023 7.5 % Final Abs Limestone 02/10/2023 0.83 <0.87 k/uL Final Eosinophils % [...] such as persistent severe abdominal pain, sometimes radiatingto the back, with or without vomiting. If [...] caloric intake and expenditure and rationale for treatmentprogram. Also reinforced need for reduced calorie low-fat [...] weight. This note was partially generated using [employer] voice recognition system, and there may be [...] loss and maintenance. We discussed that cardiovascular exerciseis most beneficial for weight loss initially, but it is important to combine resistance training asthere is a loss of lean muscle mass with weight loss. Lenore Morelos APRN DNP [facility] Obesity Medicine I spent a total of 35 minutes on the date of the service which included preparing to see the patient, bdmt-bn-mntm patient care, completing clinical documentation, obtaining and/or reviewing separately obtained history, performing a medically appropriate examination, counseling and educating the pat ient/family/caregiver, ordering medications, tests, or procedures, communicating with other HCPs (not separately reported), independently interpreting results (not separately reported), communicatingresults to the patient/family/caregiver, and care coordination (not [...] handouts given to patient. documented in this encounterChildren'S [facility]08-18-2023 Instructions* Patient Instructions* Billie Lozoya MD - 05/30/2023 1:48 PM [...] falling asleep or wake up shortly after goingto sleep, leave the bedroom and read quietly or do some other relaxing activity. Avoid bright lights as this can cue your wake cycle. Develop sleep rituals before going to bed. Do the same things in the same order before going to bedto cue your body to slow down and [...] be a deadly combination. documented in this encounterChildren'S Hospital For Rehabilitation08-18-2023 History of Present illness Narrative* Billie Lozoya MD - 05/30/2023 1:00 PM EDT Images from the original note [...] 4 months PRIMARY CARE PHYSICIAN: Zainab Fountain (Qual Field Manager) Patient Ms. Allan states Zainab Fountain (Eloise) requests consultation regarding possible HALIMA. My final recommendations will be communicated to the requesting health care provider by way of the shared medical record for internal providers or letter via the [employer] Postal Service for external providers. CHIEF COMPLAINT: [...] 261 max - now down 30 lbs [place] Sleepiness Scale: Total: 5 REVIEW OF SYSTEMS: [...] mg subcutaneously one time a week. Insulin [place], Disposable, (NOVOFINE 32) 32 gauge x 1/4 [...] INTRAUTERINE route as directed. put in at [facility] ALLERGIES Allergen Reactions Seasonal Allergies Unknown PHYSICAL [...] rhythm, chest symmetric with normal A/P diameter, nochest deformities noted, no chest wall tenderness, diaphragmatic [...] SIGNATURE: Billie Lozoya MD CC: Zainab Fountain (Qual Field Manager) documented in this encounterChildren'S Hospital For Rehabilitation04-14-2023 Miscellaneous Notes* Telephone Encounter - Whitney BrownNurse - 01/24/2023 2:39 PM EDT Return in about 12 weeks (around 04/18/2023). No answer ,lvm documented in this encounterChildren'S Hospital For Rehabilitation01-25-2023 Instructions* Patient Instructions* Shanique Jacinto APRN.CAMILLA - 11/06/2022 10:53 AM EST Images from [...] small circular motions. Continue around the entire [place] until you reach 12 o'clock again. Keep your fingers flat and in constant contact with your breast. When the [place] is complete, move in one inch toward the nipple and complete another [place] around the clock. Continue in this pattern [...] skin on the breast or nipple References [employer] [employer]. Breast Cancer Accessed 09/13/2013. Noe Bullard M, Akshat Pearson. Breast disorders and breast cancer screening. In: Madai DEL CID, ed. [facility]: Current Clinical Medicine 2010. 2nd ed. [place], [place]: Anna Marie Gonzalez; 2010:section 15. Copyright 8439-4730 [facility]. All rights reserved This information is provided by the [facility] and is not intended to replace the medical advice of your doctor or health care provider. Please consult your health care provider for advice about a specific medical condition. For additional health information, please contact the Center for Consumer Health Information at the [facility] or toll-free extension [phone]. If you prefer, you may visit [email or web address] documented in this encounterChildren'S Hospital For Rehabilitation01-25-2023 Nurse Note* Monalisa Farnsworth LPN - 11/06/2022 10:35 AM EST Patient presents for yearly CBE and films. No new breast concerns. Monalisa Farnsworth LPN documented in this encounterChildren'S Hospital For Rehabilitation01-25-2023 History of Present illness Narrative* Shanique Jacinto APRN.CNP - 11/06/2022 10:01 AM EST Images from the original note were not included. Shanique Jacinto APRN-CAMILLA, [facility] [address] [place], [place] [id number] Date of Visit: 11/06/2022 Patient Name: Tameka [...] cancer diagnosed 07/28/2015. She is an established [facility] She denies any current breast [...] invasive poorly differentiated carcinoma. ER negative / MD negative / HER2 negative by FISH Clinical [...] for non-surgical bariatric weight loss consultation, started ozempicand metformin with goal to lose approximately 95 [...] INTRAUTERINE route as directed. put in at [facility] 1 Intra Uterine Device 0 calcium-vitamin D3-vitamin [...] social history were reviewed by Shanique Jacinto APRN.SUPERVISOR CUTTING AND SEWING ROOM ALLERGIES Allergen Reactions Seasonal Allergies Unknown Current [...] INTRAUTERINE route as directed. put in at [facility] calcium-vitamin D3-vitamin K 500 mg-1,000 unit-40 mcg [...] breast cancer, invasive ductal carcinoma grade 3, ER/MD- H2N- clinical stage IIIB [[id number]]. FInal pathology showed no residual cancer and 16 negative lymph nodes. Pathological stage ypT0N0(0/16)M0. She did complete post-mastectomy radiation in [place] with Dr. Alcocer. She denies any breast [...] mammogram, 11/03/2020 mammogram, and 09/14/2019 mammogram - [facility]. There are scattered fibroglandular elements in left breast. No significant masses, calcifications, or other findings are seen in the breast. There has been no significant interval change. IMPRESSION: NEGATIVE There is no mammographic evidence of malignancy. A 1 year screening mammogram is recommended. Rico jacob/penrad:11/06/2022 09:27:40 Nurse Aide(s): Eladia Barahona(Madhav)(M), [facility] letter sent: Normal over 40 Mammogram BI-RADS: [...] Low Shanique Jacinto APRN.CNP I verified the medical case manager/nurse documentation in the medical record, and made appropriate changes. I personally performed a history,physical exam and medical decision making. Shanique Jacinto APRN-CAMILLA, OCN documented in this encounterChildren'S Hospital For Rehabilitation01-25-2023 History of Present illness Narrative* RT Brooklyn(R) - 11/06/2022 9:30 AM EST Radiology Service Progress Note PATIENT NAME: Tameka Allan DATE OF SERVICE: November 06, 2022 TIME: 9:09 AM PATIENT IDENTITY VERIFICATION COMPLETED USING TWO (2) IDENTIFIERS: Name and Date of confirmedby patient verbally. FALL SCREENING: Has the patient had 2 falls in the last year or 1 fall with injury or currently using an Ambulatory Assistive Device (Walker, Cane, Wheelchair, Crutches, etc.)? No PATIENT GENDER DATA: Female. status: : No status: NO. PATIENT RELEVANT IMPLANT DATA REVIEWED: Not Applicable RADIOLOGY DEPARTMENT: Mammography PERIPHERAL IV DATA: Not applicable SIGNED BY: RT Brooklyn(Madhav) November 06, 2022 9:09 AM documented in this encounterChildren'S Hospital For Rehabilitation01-25-2023 Miscellaneous Notes* Letter - Mammography Coordinator - 11/06/2022 9:27 AM EST [facility] [address] [place] [id number] November 06, 2022 PID: [id number] Tameka Allan [address] [address] Dear Ms. Allan, We are pleased to inform you [...] report will be [facility] on [facility] at [facility] as part of your permanent medical record and are available for your continuing care. Thank you for allowing us to help in meeting your health care needs. Sincerely, Dr. Ramos Interpreting Radiologist [facility] (Normal over 40) documented in this encounterChildren'S Hospital For Rehabilitation11-28-2022 History of Present illness Narrative* Rico Clifford MD - 09/09/2022 1:08 PM EST Subjective: Patient is status post a laparoscopic cholecystectomy completed at [facility] on 08/28/2022. Pathology report showed chronic cholecystitis [...] for her to fly. documented in this encounterChildren'S Hospital For Rehabilitation11-16-2022 History of Past illness Narrative* Problem Noted Date Resolved Date Calculus of gallbladder with cholecystitis 08/2808/28/2022 RUQ pain 08/28/2022 08/28/2022 Colon cancer screening 11/22/2016 7 documented as of this encounter (statuses as of 09/09/2022) [facility] History of Past illness Narrative* Problem Noted Date Resolved Date Calculus of gallbladder with cholecystitis 08/2808/28/2022 RUQ pain 08/28/2022 08/28/2022 Colon cancer screening 11/22/2016 7 documented as of this encounter (statuses as of 10/31/2022) [facility] History of Past illness Narrative* Problem Noted Date Resolved Date Calculus of gallbladder with cholecystitis 08/2808/28/2022 RUQ pain 08/28/2022 08/28/2022 Colon cancer screening 11/22/2016 7 documented as of this encounter (statuses as of 11/06/2022) [place] [address]16-2022 History of Past illness Narrative* Problem Noted Date Resolved Date Calculus of gallbladder with cholecystitis 08/2808/28/2022 RUQ pain 08/28/2022 08/28/2022 Colon cancer screening 11/22/2016 7 documented as of this encounter (statuses as of 11/07/2022) [address]16-2022 History of Past illness Narrative* Problem Noted Date Resolved Date Calculus of gallbladder with cholecystitis 08/2808/28/2022 RUQ pain 08/28/2022 08/28/2022 Colon cancer screening 11/22/2016 7 documented as of this encounter (statuses as of 11/08/2022) [address]16-2022 History of Past illness Narrative* Problem Noted Date Resolved Date Calculus of gallbladder with cholecystitis 08/2808/28/2022 RUQ pain 08/28/2022 08/28/2022 Colon cancer screening 11/22/2016 7 documented as of this encounter (statuses as of 01/25/2023) [address]16-2022 History of Past illness Narrative* Problem Noted Date Resolved Date Calculus of gallbladder with cholecystitis 08/2808/28/2022 RUQ pain 08/28/2022 08/28/2022 Colon cancer screening 11/22/2016 7 documented as of this encounter (statuses as of 01/27/2023) [address]16-2022 History of Past illness Narrative* Problem Noted Date Resolved Date Calculus of gallbladder with cholecystitis 08/2808/28/2022 RUQ pain 08/28/2022 08/28/2022 Colon cancer screening 11/22/2016 7 documented as of this encounter (statuses as of 02/12/2023) [address]16-2022 History of Past illness Narrative* Problem Noted Date Diagnosed Date Resolved Date Calculus of gallbladder with cholecystitis 08/28/2022 08/28/2022 RUQ pain 08/28/2022 08/28/2022 Colon cancer screening 11/22/201611/22 documented as of this encounter (statuses as of 05/30/2023) [address]16-2022 History of Past illness Narrative* Problem Noted Date Diagnosed Date Resolved Date Calculus of gallbladder with cholecystitis 08/28/2022 08/28/2022 RUQ pain 08/28/2022 08/28/2022 Colon cancer screening 11/22/201611/22 documented as of this encounter (statuses as of 06/10/2023) [facility] of Past illness Narrative* Problem Noted Date Diagnosed Date Resolved Date Calculus of gallbladder with cholecystitis 08/28/2022 08/28/2022 RUQ pain 08/28/2022 08/28/2022 Colon cancer screening 11/22/201611/22 documented as of this encounter (statuses as of 07/28/2023) [facility] History of Past illness Narrative* Problem Noted Date Diagnosed Date Resolved Date Calculus of gallbladder with cholecystitis 08/28/2022 08/28/2022 RUQ pain 08/28/2022 08/28/2022 Colon cancer screening 11/22/201611/22 documented as of this encounter (statuses as of 08/21/2023) [facility] History of Past illness Narrative* Problem Noted Date Diagnosed Date Resolved Date Calculus of gallbladder with cholecystitis 08/28/2022 08/28/2022 RUQ pain 08/28/2022 08/28/2022 documented as of this encounter (statuses as of 08/27/2023) [facility] History of Past illness Narrative* Problem Noted Date Diagnosed Date Resolved Date Calculus of gallbladder with cholecystitis 08/28/2022 08/28/2022 RUQ pain 08/28/2022 08/28/2022 documented as of this encounter (statuses as of 09/24/2023) [facility] History of Past illness Narrative* Problem Noted Date Diagnosed Date Resolved Date Calculus of gallbladder with cholecystitis 08/28/2022 08/28/2022 RUQ pain 08/28/2022 08/28/2022 documented as of this encounter (statuses as of 11/17/2023) [facility] History of Past illness Narrative* Problem Noted Date Diagnosed Date Resolved Date Calculus of gallbladder with cholecystitis 08/28/2022 08/28/2022 RUQ pain 08/28/2022 08/28/2022 documented as of this encounter (statuses as of 12/11/2023) [address]16-2022 History of Past illness Narrative* Problem Noted Date Diagnosed Date Resolved Date Calculus of gallbladder with cholecystitis 08/28/2022 08/28/2022 RUQ pain 08/28/2022 08/28/2022 documented as of this encounter (statuses as of 12/12/2023) [address]16-2022 History of Past illness Narrative* Problem Noted Date Diagnosed Date Resolved Date Calculus of gallbladder with cholecystitis 08/28/2022 08/28/2022 RUQ pain 08/28/2022 08/28/2022 documented as of this encounter (statuses as of 12/16/2023) [facility] History of Past illness Narrative* Problem Noted Date Diagnosed Date Resolved Date Calculus of gallbladder with cholecystitis 08/28/2022 08/28/2022 RUQ pain 08/28/2022 08/28/2022 documented as of this encounter (statuses as of 12/24/2023) [facility] History of Past illness Narrative* Problem Noted Date Diagnosed Date Resolved Date Calculus of gallbladder with cholecystitis 08/28/2022 08/28/2022 RUQ pain 08/28/2022 08/28/2022 documented as of this encounter (statuses as of 01/16/2024) [facility] History of Past illness Narrative* Problem Noted Date Diagnosed Date Resolved Date Calculus of gallbladder with cholecystitis 08/28/2022 08/28/2022 RUQ pain 08/28/2022 08/28/2022 documented as of this encounter (statuses as of 01/16/2024) [address]16-[address]22 History of Past illness Narrative* Problem Noted Date Diagnosed Date Resolved Date Calculus of gallbladder with cholecystitis 08/28/2022 08/28/2022 RUQ pain 08/28/2022 08/28/2022 documented as of this encounter (statuses as of 01/19/2024) [address]16-2022 History of Past illness Narrative* Problem Noted Date Diagnosed Date Resolved Date Calculus of gallbladder with cholecystitis 08/28/2022 08/28/2022 RUQ pain 08/28/2022 08/28/2022 documented as of this encounter (statuses as of 01/21/2024) [facility] NoteHNO ID: [id number] Author: Elio Page APRN.CRNA Service: Anesthesiology Author Type: Nurse Foreign Diplomat Type: Anesthesia Procedure Notes Filed: 08/28/2022 8:58 AM Note Text: ANESTHESIOLOGY PROCEDURE NOTE Airway General Information Procedure Start Time/Medication Administration: 08/28/2022 8:38 AM Patient location during procedure: OR Timeout Performed Pre-procedure: timeout performed Consent Obtained: Yes Patient identity confirmed: arm band Staffing MORNING SHOW HOST: Elio Page APRN.MORNING SHOW HOST Indications and Patient Condition Indications for airway [...] no Airway not difficult SIGNATURE: Elio Page APRN.CRNA PATIENT NAME: Tameka Allan DATE: August 28, 2022 TIME: 8:58 AM CSN: [id number] History of Present illness Narrative* Shanique Shea APRN.SUPERVISOR CUTTING AND SEWING ROOM - 08/02/2022 8:52 AM EDT Parking Meter Collector offered: Patient declines. Tameka is a 46 year old who presents for an annual gynecologic exam without complaints. Having lap cholecystectomy 08/28/2023 Dr Clifford. Started metformin for pre-diabetes. Going to [place] for a week this month. Menses: no menses - IUD. Ingrid 06/22/2020 for HMB, random spotting Contraception: tubal sterilization. HPV vaccine: No Last Pap: 01/21/2019 normal HPV: negative History of abnormal pap: Yes, unsure of procedures early Last mammogram: 11/05/2021 normal Right mastectomy 2016 - Triple negative breast cancer, chemo, radiation Sexually active: No Documentation from previous visit of 05/11/2021 was copied and pasted, documentation has been reviewed and edited as necessary for today's visit. OB History T0 L0 SAB0 IAB0 Ectopic0 Multiple0 Live Births0 Vinyl Flooring Installer History LMP: 07/05/2015 (Exact Date), IUD Age at Menarche: Age at First : Age at Menopause: Vinyl Flooring Installer History Comments: Sexual Activity: Not Currently; Male [...] external genitalia normal, normal Bartholin's glands, urethra, Bunker's glands, no vulvar lesions, no cervical lesions, [...] symptoms. Shanique Shea APRN.CAMILLA documented in this encounterChildren'S Hospital For [facility]10-21-2022 History of Present illness Narrative* Rioc Clifford MD - 08/02/2022 8:24 AM EDT HISTORY AND PHYSICAL Tameka Allan 1975 REFERRING PHYSICIAN: Zainab Fountain (Qual Field Manager), * CHIEF COMPLAINT: Consult (RUQ pain, Ultra [...] INTRAUTERINE route as directed. put in at [facility] 1 Intra Uterine Device 0 calcium-vitamin D3-vitamin [...] entered by the nurse and reviewed by co Nursing Notes: Lenore Mirza LPN 08/02/2022 8:20 [...] 2021 Last Colonoscopy: 2019 Lenore Mirza LPN PHYSICAL EXAMINATION: General: The patient is 46 [...] Procedure: LAPAROSCOPIC CHOLECYSTECTOMY WITHOUT INTRAOPERATIVE CHOLEANGIOGRAM - [id number] Planned antibiotic: Ancef 2gm IVPB lubrication technician to OR SCDs needed - Yes Detail Assembler Needed - Yes Diagnoses: (K80.18) Calculus of [...] Rico Clifford III, MD documented in this encounterChildren'S Hospital [facility]10-21-2022 Nurse Note* Lenore Mirza LPN - 08/02/2022 8:16 AM EDT REVIEW OF [...] 2019 Lenore Mirza LPN documented in this encounterChildren'S [facility]10-11-2022 Miscellaneous Notes* Telephone Encounter - Mary Braden - 07/23/2022 9:38 AM EDT Fax PCP ref call into the program, LVM documented in this encounterChildren'S Hospital [facility]07-12-2022 History of Present illness Narrative* Shanique Jacinto APRN.CNP - 04/23/2022 9:41 PM EDT Images from the original note were not included. Shanique Jacinto APRN-CAMILLA, [place] [id number] Date of Visit: 11/05/2021 Patient Name: Tameka [...] cancer diagnosed 07/28/2015. She is an established [facility] patient and was last seen in [facility] 11/08/[address] Wesley. She any current breast concerns including palpable breast lumps or masses, enlarged lymph nodes, pain, tenderness, skin changes, erythema or nipple discharge. She is status post right modified radical mastectomy on 02/05/2016 after receiving neoadjuvant AC-T for right inflammatory breast cancer, invasive ductal carcinoma grade 3, ER/MD- H2N- clinical stage IIIB [[id number]]. FInal pathology showed no residual cancer and [...] INTRAUTERINE route as directed. put in at [facility] 1 Intra Uterine Device 0 calcium-vitamin D3-vitamin [...] social history were reviewed by Shanique Jacinto APRN.SUPERVISOR CUTTING AND SEWING ROOM ALLERGIES Allergen Reactions No Known Allergies Unknown Seasonal Allergies Unknown Current Outpatient Medications Medication Sig levonorgestrel (LILETTA) 20.1 mcg/24 hrs (6 yrs) 52 mg IUD 1 Each by INTRAUTERINE route as directed. put in at [facility] calcium-vitamin D3-vitamin K 500 mg-1,000 unit-40 mcg [...] for annual exam in one year. - [facility] SCREENING W CHANCE Allan is a 43 [...] mammogram, 09/10/2018 mammogram, and 09/02/2017 mammogram - [facility]. There are scattered fibroglandular elements in [...] Low Shanique Jacinto APRN.CNP I verified the medical case manager/nurse documentation in the medical record, and made appropriate changes. I personally performed a history,physical exam and medical decision making. Shanique STORY, OCN documented in this encounterChildren'S Hospital For [facility]01-24-2022 Instructions* Patient Instructions* Shanique Jacinto APRN.CNP - [...] small circular motions. Continue around the entire [place] until you reach 12 o'clock again. Keep your fingers flat and in constant contact with your breast. When the [place] is complete, move in one inch toward the nipple and complete another [place] around the clock. Continue in this pattern [...] skin on the breast or nipple References [employer]. Breast Cancer Accessed 09/13/2013. Angeles P, Noe M, Akshat H. Breast disorders and breast cancer screening. In: Madai DEL CID, ed. [facility]: Current Clinical Medicine 2010. 2nd ed. [place], [place]: Anna Marie Gonzalez; 2010:section 15. Copyright 0620-5139 [facility]. All rights reserved This information is provided by the [facility] and is not intended to replace the medical advice of your doctor or health care provider. Please consult your health care provider for advice about a specific medical condition. For additional health information, please contact the Center for Consumer Health Information at the [facility] or toll-free extension [phone]. If you prefer, you may visit [email or web address] documented in this encounterChildren'S Hospital For Rehabilitation01-24-2022 Nurse Note* Marjan Aleman LPN - 11/05/2021 10:27 AM EST Patient presents for Survivorship consultation. Patient states no concerns with her self exam Marjan Aleman LPN documented in this encounterChildren'S Hospital For [facility]02-10-2017 History of Past illness Narrative* Problem Noted Date Resolved Date Colon cancer screening 11/22/2016 7 documented as of this encounter (statuses as of 04/24/2022) [facility] History of Past illness Narrative* Problem Noted Date Resolved Date Colon cancer screening 11/22/2016 7 documented as of this encounter (statuses as of 07/23/2022) [facility] History of Past illness Narrative* Problem Noted Date Resolved Date Colon cancer screening 11/22/2016 7 documented as of this encounter (statuses as of 08/02/2022) [facility] History of Past illness Narrative* Problem Noted Date Resolved Date Colon cancer screening 11/22/2016 7 documented as of this encounter (statuses as of 08/02/2022) [facility] Future Appointments Appointment Date:07/27/2024 07:30:00 AM Scheduled Provider: Location:[facility] Appointment Type:PC Nurse Lab Future Scheduled Tests Laboratory* Thyroid Stimulating Hormone 07/22/24 * A1C Hemoglobin 07/22/24 * Complete Blood Count 07/22/24 * Lipid Profile 07/22/24 * Complete Metabolic Panel 07/22/24 [facility] Evaluation + Plan note Future Appointments Appointment Date:05/16/2025 09:00:00 AM Scheduled Provider:ZAINAB FOUNTAIN Location:[facility] Appointment Type: OV Diagnostic Tests Pending * Rheumatoid Factor 04/30/25 * JESSICA by IFA Screen 04/30/25 * Lyme Disease Serology w/Reflex 04/30/25 * Thyroid Rush Profile 04/30/25 [facility] evEvostorfbfyc note* Diagnosis Inflammatory breast cancer, right (HCC)- Primary History of right mastectomy Acquired absence of breast and nipple Visit for screening mammogram Other screening mammogram [facility]* Diagnosis Calculus of gallbladder with cholecystitis of other acuity without obstruction- Primary RUQ pain Abdominal pain, right upper quadrant Calculus of gallbladder with cholecystitis of other acuity without obstruction RUQ pain Abdominal pain, right upper quadrant documented in this [facility] Diagnosis Encounter for gynecological examination (general) (routine) without abnormal findings- Primary Encounter for screening mammogram for breast cancer Calculus of gallbladder with cholecystitis of other acuity without obstruction RUQ pain Abdominal pain, right upper quadrant [facility] this [facility] Diagnosis Aftercare- Primary Unspecified aftercare documented in this encounter [facility] note* Diagnosis Inflammatory breast cancer, right (HCC)- Primary History of right mastectomy Acquired absence of breast and nipple BRCA negative Screening for genetic disease carrier status Visit for screening mammogram Other screening mammogram documented in this encounter [facility] note* Diagnosis Encounter for screening mammogram for breast cancer documented in this encounter [facility] note* Diagnosis Obesity, Class III, BMI >= 40- Primary Morbid obesity HALIMA (obstructive sleep apnea) Obstructive sleep apnea (adult) (pediatric) documented in this encounter [facility] note* Diagnosis Class 3 severe obesity [...] Index 40.0-44.9, adult documented in this encounter [facility] note* Diagnosis HALIMA (obstructive sleep apnea) Obstructive sleep apnea (adult) (pediatric) Dietary counseling and surveillance Dietary surveillance and counseling Type 2 diabetes mellitus with other specified complication, without long-term current use of insulin (HCC) BMI 40.0-44.9, adult (HCC) Body Mass Index 40.0-44.9, adult documented in this encounter [facility] note* Diagnosis Obesity, Class III, BMI >= 40- Primary Morbid obesity Type 2 diabetes mellitus with other specified complication, without long-term current use of insulin (HCC) HALIMA (obstructive sleep apnea) Obstructive sleep apnea (adult) (pediatric) Dietary counseling and surveillance Dietary surveillance and counseling BMI 40.0-44.9, adult (HCC) Body Mass Index 40.0-44.9, adult documented in this encounter [facility] note* Diagnosis Type 2 diabetes mellitus with other specified complication, without long-term current use of insulin (HCC) HALIMA (obstructive sleep apnea) Obstructive sleep apnea (adult) (pediatric) Dietary counseling and surveillance Dietary surveillance and counseling BMI 40.0-44.9, adult (HCC) Body Mass Index 40.0-44.9, adult documented in this encounter [facility] note* Diagnosis Class 3 severe obesity with serious comorbidity in adult, unspecified BMI, unspecified obesity type (HCC)- Primary Dietary counseling and surveillance Dietary surveillance and counseling Type 2 diabetes mellitus with other specified complication, without long-term current use of insulin (HCC) HALIMA (obstructive sleep apnea) Obstructive sleep apnea (adult) (pediatric) BMI 40.0-44.9, adult ([facility]) Body Mass Index 40.0-44.9, adult documented in this encounter [facility] note* Diagnosis Dietary counseling and surveillance Dietary surveillance and counseling Type 2 diabetes mellitus with other specified complication, without long-term current use of insulin ([facility]) HALIMA (obstructive sleep apnea) Obstructive sleep apnea (adult) (pediatric) BMI 40.0-44.9, adult ([facility]) Body Mass Index 40.0-44.9, adult documented in this encounter [facility] note* Diagnosis Type 2 diabetes mellitus with other specified complication, without long-term current use of insulin ([facility])- Primary Dietary counseling and surveillance Dietary surveillance and counseling BMI 38.0-38.9,adult Body Mass Index 38.0-38.9, adult documented in this encounter [facility] note* Diagnosis Type 2 diabetes mellitus with other specified complication, without long-term current use of insulin ([facility]) Dietary counseling and surveillance Dietary surveillance and counseling BMI 38.0-38.9,adult Body Mass Index 38.0-38.9, adult documented in this encounter [facility] note* Diagnosis HALIMA (obstructive sleep apnea)- Primary Obstructive sleep apnea (adult) (pediatric) documented in this encounter [facility] note* Diagnosis Type 2 diabetes mellitus with other specified complication, without long-term current use of insulin ([facility]) Dietary counseling and surveillance Dietary surveillance and counseling BMI 38.0-38.9,adult Body Mass Index 38.0-38.9, adult documented in this encounter [facility] note* Diagnosis Type 2 diabetes mellitus with other specified complication, without long-term current use of insulin ([facility])- Primary Dietary counseling and surveillance Dietary surveillance and counseling BMI 40.0-44.9, adult ([facility]) Body Mass Index 40.0-44.9, adult documented in this encounter [facility] note* Diagnosis Class 3 severe obesity with serious comorbidity in adult, unspecified BMI, unspecified obesity type ([facility])- Primary BMI 40.0-44.9, adult ([facility]) Body Mass Index 40.0-44.9, adult Dietary counseling and surveillance Dietary surveillance and counseling Type 2 diabetes mellitus with other specified complication, without long-term current use of insulin (HCC) HALIMA (obstructive sleep apnea) Obstructive sleep apnea (adult) (pediatric) [facility]* Diagnosis BMI 40.0-44.9, adult (HCC) Body Mass Index 40.0-44.9, adult Dietary counseling and surveillance Dietary surveillance and counseling Type 2 diabetes mellitus with other specified complication, without long-term current use of insulin (HCC) HALIMA (obstructive sleep apnea) Obstructive sleep apnea (adult) (pediatric) [facility]* Diagnosis BMI 40.0-44.9, adult (HCC) Body Mass Index 40.0-44.9, adult Dietary counseling and surveillance Dietary surveillance and counseling Type 2 diabetes mellitus with other specified complication, without long-term current use of insulin (HCC) HALIMA (obstructive sleep apnea) Obstructive sleep apnea (adult) (pediatric) [facility]* Diagnosis HALIMA (obstructive sleep apnea)- Primary Obstructive sleep apnea (adult) (pediatric) [facility]* Diagnosis BMI 40.0-44.9, adult (HCC) Body Mass Index 40.0-44.9, adult Dietary counseling and surveillance Dietary surveillance and counseling Type 2 diabetes mellitus with other specified complication, without long-term current use of insulin (HCC) HALIMA (obstructive sleep apnea) Obstructive sleep apnea (adult) (pediatric) [facility]* Diagnosis Class 3 [...] apnea (adult) (pediatric) [facility]* Diagnosis Inflammatory breast cancer, right (HCC)- Primary Inflammatory breast cancer, right (HCC)- Primary Breast screening Breast screening, unspecified Type 2 diabetes mellitus with other specified complication, without long-term current use of insulin (HCC)- Primary Dietary counseling and surveillance Dietary surveillance and counseling BMI 37.0-37.9, adult Body Mass Index 37.0-37.9, adult documented in this encounter [facility] note* Diagnosis Inflammatory breast cancer, right (HCC)- Primary Inflammatory breast cancer, right (HCC)- Primary Breast screening Breast screening, unspecified Type 2 diabetes mellitus with other specified complication, without long-term current use of insulin (HCC) Dietary counseling and surveillance Dietary surveillance and counseling BMI 37.0-37.9, adult Body Mass Index 37.0-37.9, adult [facility]* Diagnosis Inflammatory breast cancer, right (HCC)- Primary Inflammatory breast cancer, right (HCC)- Primary Breast screening Breast screening, unspecified Type 2 diabetes mellitus with other specified complication, without long-term current use of insulin (HCC) Dietary counseling and surveillance Dietary surveillance and counseling BMI 37.0-37.9, adult Body Mass Index 37.0-37.9, adult [facility]* Diagnosis Inflammatory breast cancer, right (HCC)- Primary Inflammatory breast cancer, right (HCC)- Primary Breast screening Breast screening, unspecified Type 2 diabetes mellitus with other specified complication, without long-term current use of insulin (HCC) Dietary counseling and surveillance Dietary surveillance and counseling BMI 37.0-37.9, adult Body Mass Index 37.0-37.9, adult documented in this encounter [facility] note* Diagnosis Inflammatory breast cancer, right [...] apnea (adult) (pediatric) documented in this encounter [facility] note* Diagnosis Inflammatory breast cancer, right (HCC)- Primary Inflammatory breast cancer, right (HCC)- Primary Breast screening Breast screening, unspecified Screen for colon cancer- Primary Special screening for malignant neoplasms, colon Family history of colon cancer in father [facility]* Diagnosis Inflammatory breast cancer, right (HCC)- Primary Inflammatory breast cancer, right (HCC)- Primary Breast screening Breast screening, unspecified Visit for screening mammogram Other screening mammogram [facility]* Diagnosis Inflammatory breast cancer, right (HCC)- Primary Inflammatory breast cancer, right (HCC)- Primary Breast screening Breast screening, unspecified Type 2 diabetes mellitus with other specified complication, without long-term current use of insulin (HCC) Dietary counseling and surveillance Dietary surveillance and counseling BMI 37.0-37.9, adult Body Mass Index 37.0-37.9, adult [facility]* Diagnosis Inflammatory breast cancer, right (HCC)- Primary Inflammatory breast cancer, right (HCC)- Primary Breast screening Breast screening, unspecified Encounter for screening colonoscopy- Primary Special screening for malignant neoplasms, colon Screen for colon cancer Special screening for malignant neoplasms, colon Family history of colon cancer in father documented in this encounter [facility] note* Diagnosis Inflammatory breast cancer, right (HCC)- Primary Inflammatory breast cancer, right (HCC)- Primary Breast screening Breast screening, unspecified Inflammatory breast cancer, right (HCC)- Primary History of right mastectomy Acquired absence of breast and nipple BRCA negative Screening for genetic disease carrier status Visit for screening mammogram Other screening mammogram documented in this encounter [facility] note* Diagnosis Inflammatory breast cancer, right (HCC)- Primary Inflammatory breast cancer, right (HCC)- Primary Breast screening Breast screening, unspecified Hyperplastic polyp of ascending colon- Primary documented in this encounter [facility] note* Diagnosis Inflammatory breast cancer, right [...] Abnormal craving Pica documented in this encounter [facility] note* Diagnosis Inflammatory breast cancer, right [...] Index 37.0-37.9, adult documented in this encounter [facility] noteNo assessment information availableWPremier Health [facility] Work Phone: Evaluation note* Diagnosis Inflammatory breast cancer, right (HCC)- Primary Inflammatory breast cancer, right (HCC)- Primary Breast screening Breast screening, unspecified Type 2 diabetes mellitus with other specified complication, without long-term current use of insulin (HCC) Dietary counseling and surveillance Dietary surveillance and counseling BMI 37.0-37.9, adult Body Mass Index 37.0-37.9, adult documented in this encounter [facility] note* Diagnosis Inflammatory breast cancer, right (HCC)- Primary Inflammatory breast cancer, right (HCC)- Primary Breast screening Breast screening, unspecified Class 3 severe obesity with serious comorbidity in adult (HCC)- Primary Dietary counseling and surveillance Dietary surveillance and counseling BMI 40.0-44.9, adult (HCC) Body Mass Index 40.0-44.9, adult Inflammatory breast cancer, right (HCC) Type 2 diabetes mellitus with other specified complication, without long-term current use of insulin (HCC) HALIMA (obstructive sleep apnea) Obstructive sleep apnea (adult) (pediatric) BMI 37.0-37.9, adult Body Mass Index 37.0-37.9, adult documented in this encounter [facility] course Narrative No data available for this section [facility] Hospital Discharge instructions No data available for this section [facility] Progress note No data available for this section [facility] Reason for referral (narrative)* Diagnostic Procedure Only (Routine) - Pending Review Specialty Diagnoses / Procedures Referred By Lindsey t Referred To Contact [facility] Diagnoses Visit for screening mammogram Procedures CAMELIA SCREENING W CHANCE SCREENING DIGITAL BREAST TOMOSYNTHESIS BI SCREENING MAMMOGRAPHY BI 2-VIEW BREAST INC Shanique Hernandez, FASHION MARKETER.SUPERVISOR CUTTING AND SEWING ROOM [address] [place] [address] [facility] [address] [place] [address] Referral ID Status Reason Start Date Expiration Date Visits Requested Visits Authorized [id number] Pending Review Auto-Generat ed Referral 11/06/2022 12/05/2022 1 1 [facility] Diagnostic Procedure Only (Routine) - Pending Review Specialty Diagnoses / Procedures Referred By Contac t Referred To Contact [facility] Diagnoses Encounter for screening mammogram for breast cancer Procedures CAMELIA SCREENING W CHANCE SCREENING DIGITAL BREAST TOMOSYNTHESIS BI SCREENING MAMMOGRAPHY BI 2-VIEW BREAST INC Shanique Mendes APRN.SUPERVISOR CUTTING AND SEWING ROOM [address] [place] [address] [facility] [address] [place] [address] Referral ID Status Reason Start Date Expiration Date Visits Requested Visits Authorized [id number] Pending Review Auto-Generat ed Referral 2 09/01/2023 1 1 [facility] for referral (narrative)* Diagnostic Procedure Only (Routine) - Authorized Specialty Diagnoses / Procedures Referred By Lindsey crockett Referred To Contact [facility] Diagnoses Visit for screening mammogram Procedures CAMELIA SCREENING W CHANCE SCREENING DIGITAL BREAST TOMOSYNTHESIS BI SCREENING MAMMOGRAPHY BI 2-VIEW BREAST INC Shanique Hernandez APRN.SUPERVISOR CUTTING AND SEWING ROOM [address] [place] [address] [facility] [address] [place] [address] Referral ID Status Reason Start Date Expiration Date Visits Requested Visits Authorized [id number] Authorized Auto-Generat ed Referral 11/07/2023 12/06/2023 1 1 [facility] Diagnostic Procedure Only (Routine) - Closed Specialty Diagnoses / Procedures Referred By Contac t Referred To Contact [facility] Diagnoses Encounter for screening mammogram for breast cancer Procedures CAMELIA SCREENING W CHANCE SCREENING DIGITAL BREAST TOMOSYNTHESIS BI SCREENING MAMMOGRAPHY BI 2-VIEW BREAST INC Shanique Mendes APRN.SUPERVISOR CUTTING AND SEWING ROOM [address] [place] [address] [facility] [address] [place] [address] Referral ID Status Reason Start Date Expiration Date V isits Requested Visits Authorized [id number] Closed Auto-Generate d Referral 08/02/2022 09/01/2023 1 1 [facility] for referral (narrative)* Outpatient Procedure (Routine) - Authorized Specialty Diagnoses / Procedures Referred By Lindsey crockett Referred To Contact [facility] Diagnoses Screen for colon cancer Family history of colon cancer in father Procedures COLONOSCOPY SCREENING COLONOSCOPY FLX DX W/COLLJ SPEC WHEN Ludy Barrow APRN.SUPERVISOR CUTTING AND SEWING ROOM [address] [place] [address] [facility] [place] [address] [place] [address] Referral ID Status Reason Start Date Expiration Date Visits Requested Visits Authorized [id number] Authorized Auto-Generat ed Referral 11/08/2024 11/08/2025 1 1 [facility] for referral (narrative)* Diagnostic Procedure Only (Routine) - Closed Specialty Diagnoses / Procedures Referred By Lindsey crockett Referred To Contact [facility] Diagnoses Visit for screening mammogram Procedures CAMELIA SCREENING W CHANCE SCREENING DIGITAL BREAST TOMOSYNTHESIS BI SCREENING MAMMOGRAPHY BI 2-VIEW BREAST INC Shanique Hernandez APRN.SUPERVISOR CUTTING AND SEWING ROOM [address] [place] [address] [facility] [address] [place] [address] Referral ID Status Reason Start Date Expiration Date V isits Requested Visits Authorized [id number] Closed Auto-Generate d Referral 11/08/2024 12/06/2024 1 1 [facility] for referral (narrative)No reason for referral information availableWPremier Health [facility] Work Phone: Reason for visit Narrative* Diagnostic Procedure Only (Routine) - Closed Specialty Diagnoses / Procedures Referred By Lindsey crockett Referred To Contact [facility] Diagnoses Encounter for screening mammogram for breast cancer Procedures CAMELIA SCREENING W CHANCE SCREENING DIGITAL BREAST TOMOSYNTHESIS BI SCREENING MAMMOGRAPHY BI 2-VIEW BREAST INC CAD Shanique Shea, FASHION MARKETER.SUPERVISOR CUTTING AND SEWING ROOM [address] [place] [address] [facility] [address] [place] [address] Referral ID Status Reason Start Date Expiration Date V isits Requested Visits Authorized [id number] Closed Auto-Generate d Referral 08/02/2022 09/01/2023 1 1 [facility] for visit Narrative* Diagnostic Procedure Only (Routine) - Closed Specialty Diagnoses / Procedures Referred By Lindsey crockett Referred To Contact [facility] Diagnoses Visit for screening mammogram Procedures CAMELIA SCREENING W CHANCE SCREENING DIGITAL BREAST TOMOSYNTHESIS BI SCREENING MAMMOGRAPHY BI 2-VIEW BREAST INC CAD Shanique Jacinto, FASHION MARKETER.SUPERVISOR CUTTING AND SEWING ROOM [address] [place] [address] [facility] [address] [place] [address] Referral ID Status Reason Start Date Expiration Date V isits Requested Visits Authorized [id number] Closed Auto-Generate d Referral 11/08/2024 12/06/2024 1 1 [facility] for visit Narrative* Outpatient Procedure (Routine) - Closed Specialty Diagnoses / Procedures Referred By Lindsey crockett Referred To Contact [facility] Diagnoses Screen for colon cancer Family history of colon cancer in father Procedures COLONOSCOPY SCREENING COLONOSCOPY FLX DX W/COLLJ SPEC WHEN Ludy Barrow APRN.SUPERVISOR CUTTING AND SEWING ROOM [address] [place] [place] [address] Phone: tel: fax: [facility] [address] [place] [address] Referral ID Status Reason Start Date Expiration Date V isits Requested Visits Authorized [id number] Closed Auto-Generate d Referral 11/08/2024 11/08/2025 1 1 [facility] Summary Purpose Family History No Family History Records Found Relationship Condition Age at Onset Recorded Date/T tereso Not Specified Malignant neoplasm Unknown Hypertension Unknown Advance Directives No Advanced Directives Records FoundDocuments on File Type Date 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 Advance Directive(s) 12/13/2019 1:17 PM [...] apnea) BMI 40.0-44.9, adult (HCC) Lenore Morelos, FASHION MARKETER.SUPERVISOR CUTTING AND SEWING ROOM [address] [place] [address] Referral ID Status Reason Start Date Expiration Date Visits Re quested Visits Authorized [id number] Closed 1 1 Specialty Diagnoses / Procedures Referred By Contcasper t Referred To Contact Diagnoses BMI 40.0-44.9, adult (HCC) Dietary counseling and surveillance Type 2 diabetes mellitus with other specified complication, without long-term current use of insulin (HCC) HALIMA (obstructive sleep apnea) Lenore Morelos, FASHION MARKETER.SUPERVISOR CUTTING AND SEWING ROOM [address] [place] [address] Referral ID Status Reason Start Date Expiration Date Visits Re quested Visits Authorized [id number] Closed 1 1 Referral ID Status Reason Start Date Expiration Date Visits Re quested Visits Authorized [id number] Closed 1 1 Chief Complaint and Reason for Visit Chief Complaint Admit Date [facility]. LAB[facility]- PAIN- COPY PCP May us2024 7:26am Additional Source Comments INFORMATION SOURCE (unrecogn ized section and content) DATE CREATED AUTHOR 11/08/2020 [facility] DATE CREATED AUTHOR AUTHOR'S ORGANIZ ATION 09/01/2022 [facility] DATE CREATED AUTHOR AUTHOR'S ORGANIZ ATION 07/22/2023 [facility] DATE CREATED AUTHOR AUTHOR'S ORGANIZ ATION 10/11/2023 [facility] DATE CREATED AUTHOR AUTHOR'S ORGANIZ ATION 12/23/2024 [facility] DATE CREATED AUTHOR AUTHOR'S ORGANIZ ATION 05/26/2025 [facility] DATE CREATED AUTHOR AUTHOR'S ORGANIZ ATION 06/07/2025 [facility] DATE CREATED AUTHOR AUTHOR'S ORGANIZ ATION 08/05/2025 [facility] Source Comments (unrecognize d section and content) In the event this informatio n is protected by the Federal Confidentiality of Alcohol and Drug Abuse Patient Records regulations: The Federal rules restrict any use of the information to criminally investigate or prosecute any alcohol or drug abuse patient.[facility] the event this information is protected by the Federal Confidentiality of Alcohol and Drug Abuse Patient Records regulations: The Federal rules restrict any use of the information to criminally investigate or prosecute any alcohol or drug abuse patient.[facility] Rehabilitation[facility] the event this information is protected by the Federal Confidentiality of Alcohol and Drug Abuse Patient Records regulations: The Federal rules restrict any use of the information to criminally investigate or prosecute any alcohol or drug abuse patient.[facility] Rehabilitation[facility] the event this information is protected by the Federal Confidentiality of Alcohol and Drug Abuse Patient Records regulations: The Federal rules restrict any use of the information to criminally investigate or prosecute any alcohol or drug abuse patient.[facility] Rehabilitation[facility] the event this information is protected by the Federal Confidentiality of Alcohol and Drug Abuse Patient Records regulations: The Federal rules restrict any use of the information to criminally investigate or prosecute any alcohol or drug abuse patient.[facility] Rehabilitation[facility] the event this information is protected by the Federal Confidentiality of Alcohol and Drug Abuse Patient Records regulations: The Federal rules restrict any use of the information to criminally investigate or prosecute any alcohol or drug abuse patient.[facility] Rehabilitation[facility] the event this information is protected by the Federal Confidentiality of Alcohol and Drug Abuse Patient Records regulations: The Federal rules restrict any use of the information to criminally investigate or prosecute any alcohol or drug abuse patient.[facility] Rehabilitation[facility] the event this information is protected by the Federal Confidentiality of Alcohol and Drug Abuse Patient Records regulations: The Federal rules restrict any use of the information to criminally investigate or prosecute any alcohol or drug abuse patient.[facility] Rehabilitation[facility] the event this information is protected by the Federal Confidentiality of Alcohol and Drug Abuse Patient Records regulations: The Federal rules restrict any use of the information to criminally investigate or prosecute any alcohol or drug abuse patient.[facility] RehabilitationIn the event this information is protected by the Federal Confidentiality of Alcohol and Drug Abuse Patient Records regulations: The Federal rules restrict any use of the information to criminally investigate or prosecute any alcohol or drug abuse patient.[facility] RehabilitationIn the event this information is protected by the Federal Confidentiality of Alcohol and Drug Abuse Patient Records regulations: The Federal rules restrict any use of the information to criminally investigate or prosecute any alcohol or drug abuse patient.[facility] RehabilitationIn the event this information is protected by the Federal Confidentiality of Alcohol and Drug Abuse Patient Records regulations: The Federal rules restrict any use of the information to criminally investigate or prosecute any alcohol or drug abuse patient.[facility] RehabilitationIn the event this information is protected by the Federal Confidentiality of Alcohol and Drug Abuse Patient Records regulations: The Federal rules restrict any use of the information to criminally investigate or prosecute any alcohol or drug abuse patient.[facility] RehabilitationIn the event this information is protected by the Federal Confidentiality of Alcohol and Drug Abuse Patient Records regulations: The Federal rules restrict any use of the information to criminally investigate or prosecute any alcohol or drug abuse patient.[facility] RehabilitationIn the event this information is protected by the Federal Confidentiality of Alcohol and Drug Abuse Patient Records regulations: The Federal rules restrict any use of the information to criminally investigate or prosecute any alcohol or drug abuse patient.[facility] RehabilitationIn the event this information is protected by the Federal Confidentiality of Alcohol and Drug Abuse Patient Records regulations: The Federal rules restrict any use of the information to criminally investigate or prosecute any alcohol or drug abuse patient.[facility] RehabilitationIn the event this information is protected by the Federal Confidentiality of Alcohol and Drug Abuse Patient Records regulations: The Federal rules restrict any use of the information to criminally investigate or prosecute any alcohol or drug abuse patient.[facility] RehabilitationIn the event this information is protected by the Federal Confidentiality of Alcohol and Drug Abuse Patient Records regulations: The Federal rules restrict any use of the information to criminally investigate or prosecute any alcohol or drug abuse patient.[facility] RehabilitationIn the event this information is protected by the Federal Confidentiality of Alcohol and Drug Abuse Patient Records regulations: The Federal rules restrict any use of the information to criminally investigate or prosecute any alcohol or drug abuse patient.[facility] RehabilitationIn the event this information is protected by the Federal Confidentiality of Alcohol and Drug Abuse Patient Records regulations: The Federal rules restrict any use of the information to criminally investigate or prosecute any alcohol or drug abuse patient.[facility] RehabilitationIn the event this information is protected by the Federal Confidentiality of Alcohol and Drug Abuse Patient Records regulations: The Federal rules restrict any use of the information to criminally investigate or prosecute any alcohol or drug abuse patient.[facility] RehabilitationIn the event this information is protected by the Federal Confidentiality of Alcohol and Drug Abuse Patient Records regulations: The Federal rules restrict any use of the information to criminally investigate or prosecute any alcohol or drug abuse patient.[facility] RehabilitationIn the event this information is protected by the Federal Confidentiality of Alcohol and Drug Abuse Patient Records regulations: The Federal rules restrict any use of the information to criminally investigate or prosecute any alcohol or drug abuse patient.[facility] RehabilitationIn the event this information is protected by the Federal Confidentiality of Alcohol and Drug Abuse Patient Records regulations: The Federal rules restrict any use of the information to criminally investigate or prosecute any alcohol or drug abuse patient.[facility] RehabilitationIn the event this information is protected by the Federal Confidentiality of Alcohol and Drug Abuse Patient Records regulations: The Federal rules restrict any use of the information to criminally investigate or prosecute any alcohol or drug abuse patient.[facility] RehabilitationIn the event this information is protected by the Federal Confidentiality of Alcohol and Drug Abuse Patient Records regulations: The Federal rules restrict any use of the information to criminally investigate or prosecute any alcohol or drug abuse patient.[facility] RehabilitationIn the event this information is protected by the Federal Confidentiality of Alcohol and Drug Abuse Patient Records regulations: The Federal rules restrict any use of the information to criminally investigate or prosecute any alcohol or drug abuse patient.[facility] RehabilitationIn the event this information is protected by the Federal Confidentiality of Alcohol and Drug Abuse Patient Records regulations: The Federal rules restrict any use of the information to criminally investigate or prosecute any alcohol or drug abuse patient.[facility] RehabilitationIn the event this information is protected by the Federal Confidentiality of Alcohol and Drug Abuse Patient Records regulations: The Federal rules restrict any use of the information to criminally investigate or prosecute any alcohol or drug abuse patient.[facility] RehabilitationIn the event this information is protected by the Federal Confidentiality of Alcohol and Drug Abuse Patient Records regulations: The Federal rules restrict any use of the information to criminally investigate or prosecute any alcohol or drug abuse patient.[facility] RehabilitationIn the event this information is protected by the Federal Confidentiality of Alcohol and Drug Abuse Patient Records regulations: The Federal rules restrict any use of the information to criminally investigate or prosecute any alcohol or drug abuse patient.[facility] RehabilitationIn the event this information is protected by the Federal Confidentiality of Alcohol and Drug Abuse Patient Records regulations: The Federal rules restrict any use of the information to criminally investigate or prosecute any alcohol or drug abuse patient.[facility] RehabilitationIn the event this information is protected by the Federal Confidentiality of Alcohol and Drug Abuse Patient Records regulations: The Federal rules restrict any use of the information to criminally investigate or prosecute any alcohol or drug abuse patient.[facility] RehabilitationIn the event this information is protected by the Federal Confidentiality of Alcohol and Drug Abuse Patient Records regulations: The Federal rules restrict any use of the information to criminally investigate or prosecute any alcohol or drug abuse patient.[facility] RehabilitationIn the event this information is protected by the Federal Confidentiality of Alcohol and Drug Abuse Patient Records regulations: The Federal rules restrict any use of the information to criminally investigate or prosecute any alcohol or drug abuse patient.[facility] RehabilitationIn the event this information is protected by the Federal Confidentiality of Alcohol and Drug Abuse Patient Records regulations: The Federal rules restrict any use of the information to criminally investigate or prosecute any alcohol or drug abuse patient.[facility] RehabilitationIn the event this information is protected by the Federal Confidentiality of Alcohol and Drug Abuse Patient Records regulations: The Federal rules restrict any use of the information to criminally investigate or prosecute any alcohol or drug abuse patient.[facility] RehabilitationIn the event this information is protected by the Federal Confidentiality of Alcohol and Drug Abuse Patient Records regulations: The Federal rules restrict any use of the information to criminally investigate or prosecute any alcohol or drug abuse patient.[facility] RehabilitationIn the event this information is protected by the Federal Confidentiality of Alcohol and Drug Abuse Patient Records regulations: The Federal rules restrict any use of the information to criminally investigate or prosecute any alcohol or drug abuse patient.[facility] RehabilitationIn the event this information is protected by the Federal Confidentiality of Alcohol and Drug Abuse Patient Records regulations: The Federal rules restrict any use of the information to criminally investigate or prosecute any alcohol or drug abuse patient.[facility] RehabilitationIn the event this information is protected by the Federal Confidentiality of Alcohol and Drug Abuse Patient Records regulations: The Federal rules restrict any use of the information to criminally investigate or prosecute any alcohol or drug abuse patient.[facility] RehabilitationIn the event this information is protected by the Federal Confidentiality of Alcohol and Drug Abuse Patient Records regulations: The Federal rules restrict any use of the information to criminally investigate or prosecute any alcohol or drug abuse patient.[facility] RehabilitationIn the event this information is protected by the Federal Confidentiality of Alcohol and Drug Abuse Patient Records regulations: The Federal rules restrict any use of the information to criminally investigate or prosecute any alcohol or drug abuse patient.[facility] RehabilitationIn the event this information is protected by the Federal Confidentiality of Alcohol and Drug Abuse Patient Records regulations: The Federal rules restrict any use of the information to criminally investigate or prosecute any alcohol or drug abuse patient.[facility] RehabilitationIn the event this information is protected by the Federal Confidentiality of Alcohol and Drug Abuse Patient Records regulations: The Federal rules restrict any use of the information to criminally investigate or prosecute any alcohol or drug abuse patient.[facility] RehabilitationIn the event this information is protected by the Federal Confidentiality of Alcohol and Drug Abuse Patient Records regulations: The Federal rules restrict any use of the information to criminally investigate or prosecute any alcohol or drug abuse patient.[facility] the event this information is protected by the Federal Confidentiality of Alcohol and Drug Abuse Patient Records regulations: The Federal rules restrict any use of the information to criminally investigate or prosecute any alcohol or drug abuse patient.[facility] RehabilitationIn the event this information is protected by the Federal Confidentiality of Alcohol and Drug Abuse Patient Records regulations: The Federal rules restrict any use of the information to criminally investigate or prosecute any alcohol or drug abuse patient.[facility] RehabilitationIn the event this information is protected by the Federal Confidentiality of Alcohol and Drug Abuse Patient Records regulations: The Federal rules restrict any use of the information to criminally investigate or prosecute any alcohol or drug abuse patient.[facility] RehabilitationIn the event this information is protected by the Federal Confidentiality of Alcohol and Drug Abuse Patient Records regulations: The Federal rules restrict any use of the information to criminally investigate or prosecute any alcohol or drug abuse patient.[facility] RehabilitationIn the event this information is protected by the Federal Confidentiality of Alcohol and Drug Abuse Patient Records regulations: The Federal rules restrict any use of the information to criminally investigate or prosecute any alcohol or drug abuse patient.[facility] RehabilitationIn the event this information is protected by the Federal Confidentiality of Alcohol and Drug Abuse Patient Records regulations: The Federal rules restrict any use of the information to criminally investigate or prosecute any alcohol or drug abuse patient.[facility] RehabilitationIn the event this information is protected by the Federal Confidentiality of Alcohol and Drug Abuse Patient Records regulations: The Federal rules restrict any use of the information to criminally investigate or prosecute any alcohol or drug abuse patient.[facility] RehabilitationIn the event this information is protected by the Federal Confidentiality of Alcohol and Drug Abuse Patient Records regulations: The Federal rules restrict any use of the information to criminally investigate or prosecute any alcohol or drug abuse patient.[facility] RehabilitationIn the event this information is protected by the Federal Confidentiality of Alcohol and Drug Abuse Patient Records regulations: The Federal rules restrict any use of the information to criminally investigate or prosecute any alcohol or drug abuse patient.[facility] RehabilitationIn the event this information is protected by the Federal Confidentiality of Alcohol and Drug Abuse Patient Records regulations: The Federal rules restrict any use of the information to criminally investigate or prosecute any alcohol or drug abuse patient.[facility] RehabilitationIn the event this information is protected by the Federal Confidentiality of Alcohol and Drug Abuse Patient Records regulations: The Federal rules restrict any use of the information to criminally investigate or prosecute any alcohol or drug abuse patient.[facility] RehabilitationIn the event this information is protected by the Federal Confidentiality of Alcohol and Drug Abuse Patient Records regulations: The Federal rules restrict any use of the information to criminally investigate or prosecute any alcohol or drug abuse patient.[facility] RehabilitationIn the event this information is protected by the Federal Confidentiality of Alcohol and Drug Abuse Patient Records regulations: The Federal rules restrict any use of the information to criminally investigate or prosecute any alcohol or drug abuse patient.[facility] RehabilitationIn the event this information is protected by the Federal Confidentiality of Alcohol and Drug Abuse Patient Records regulations: The Federal rules restrict any use of the information to criminally investigate or prosecute any alcohol or drug abuse patient.[facility] Reason for Visit (unrecogniz ed section and [...] Care Teams (unrecognized sec tion and content) Host And Hostess Relationship Specialty Start Date End Date Zainab Fountain (Qual Field Manager) [address] [place] [address] PCP - General Internal Medicine 08/03/15 Maximiliano Alcocer MD, [address] [facility] [address] Physician Radiation Oncology 02/16/16 Yoni Hale [address] [place] [address] Physician Orthopedics 01/19/18 Host And Hostess Relationship Specialty Start Date End Date Zainab Fountain (Qual Field Manager) [address] [place] [address] PCP - General Internal Medicine 08/03/15 Maximiliano Alcocer MD, [address] [facility] [place] [address] Physician Radiation Oncology 02/16/16 Yoni Hale DPM Physician Orthopedics 01/19/18 Host And Hostess Relationship Specialty Start Date End Date Zainab Fountain (Qual Field Manager) [address] [place] [address] PCP - General Internal Medicine 08/03/15 Maximiliano Alcocer MD, [address] [place] [address] Physician Radiation Oncology 02/16/16 Yoni Hale DPM Physician Orthopedics 01/19/18 Host And Hostess Relationship Specialty Start Date End Date Zainab Fountain (Qual Field Manager) [address] [place] [address] PCP - General Internal Medicine 08/03/15 Maximiliano Alcocer MD, [address] [place] [address] Physician Radiation Oncology 02/16/16 Yoni Hale DPM Physician Orthopedics 01/19/18 Host And Hostess Relationship Specialty Start Date End Date Zainab Fountain (Qual Field Manager) [address] [place] [address] PCP - General Internal Medicine 08/03/15 Maximiliano Alcocer MD, [address] [place] [address] Physician Radiation Oncology 02/16/16 Yoni Hale DPM [address] [place] [address] Physician Orthopedics 01/19/18 Host And Hostess Relationship Specialty Start Date End Date Zainab Fountain (Qual Field Manager) [address] [place] [address] PCP - General Internal Medicine 08/03/15 Maximiliano Alcocer MD, [address] [place] [address] Physician Radiation Oncology 02/16/16 Yoni Hale DPM [address] [place] [address] Physician Orthopedics 01/19/18 Host And Hostess Relationship Specialty Start Date End Date Zainab Fountain (Qual Field Manager) [address] [place] [address] PCP - General Internal Medicine 08/03/15 Maximiliano Alcocer MD, [address] [place] [address] Physician Radiation Oncology 02/16/16 Yoni Hale DPM [address] [place] [address] Physician Orthopedics 01/19/18 Host And Hostess Relationship Specialty Start Date End Date Zainab Fountain (Qual Field Manager) [address] [place] [address] PCP - General Internal Medicine 08/03/15 Maximiliano Alcocer MD, [address] [place] [address] Physician Radiation Oncology 02/16/16 Yoni Hale DPM [address] [place] [address] Physician Orthopedics 01/19/18 Host And Hostess Relationship Specialty Start Date End Date Zainab Fountain (Qual Field Manager) [address] [place] [address] PCP - General Internal Medicine 08/03/15 Maximiliano Alcocer MD, [address] [place] [address] Physician Radiation Oncology 02/16/16 Yoni Hale DPM [address] [place] [address] Physician Orthopedics 01/19/18 Host And Hostess Relationship Specialty Start Date End Date Zainab Fountain (Qual Field Manager) [address] [place] [address] PCP - General Internal Medicine 08/03/15 Maximiliano Alcocer MD, [address] [place] [address] Physician Radiation Oncology 02/16/16 Yoni Hale DPM [address] [place] [address] Physician Orthopedics 01/19/18 Host And Hostess Relationship Specialty Start Date End Date Zainab Fountain (Qual Field Manager) [address] [place] [address] PCP - General Internal Medicine 08/03/15 Maximiliano Alcocer MD, [address] [place] [address] Physician Radiation Oncology 02/16/16 Yoni Hale DPM [address] [place] [address] Physician Orthopedics 01/19/18 Host And Hostess Relationship Specialty Start Date End Date Zainab Fountain (Qual Field Manager) [address] [place] [address] PCP - General Internal Medicine 08/03/15 Maximiliano Alcocer MD, MD [address] [place] [address] Physician Radiation Oncology 02/16/16 Yoni Hale DPM [address] [place] [address] Physician Orthopedics 01/19/18 Host And Hostess Relationship Specialty Start Date End Date Zainab Fountain (Qual Field Manager) [address] [place] [address] PCP - General Internal Medicine 08/03/15 Maximiliano Alcocer MD, [address] [place] [address] Physician Radiation Oncology 02/16/16 Yoni Hale DPM [address] [place] [address] Physician Orthopedics 01/19/18 Host And Hostess Relationship Specialty Start Date End Date Zainab Fountain (Qual Field Manager) [address] [place] [address] PCP - General Internal Medicine 08/03/15 Maximiliano Alcocer MD, [address] [place] [address] Physician Radiation Oncology 02/16/16 Yoni Hale DPM [address] [place] [address] Physician Orthopedics 01/19/18 Host And Hostess Relationship Specialty Start Date End Date Zainab Fountain (Qual Field Manager) [address] [place] [address] PCP - General Internal Medicine 08/03/15 Maximiliano Alcocer MD, [address] [place] [address] Physician Radiation Oncology 02/16/16 Yoni Hale DPM [address] [place] [address] Physician Orthopedics 01/19/18 Host And Hostess Relationship Specialty Start Date End Date Zainab Fountain (Qual Field Manager) [address] [place] [address] PCP - General Internal Medicine 08/03/15 Maximiliano Alcocer MD, [address] [place] [address] Physician Radiation Oncology 02/16/16 Yoni Hale DPM [address] [place] [address] Physician Orthopedics 01/19/18 Host And Hostess Relationship Specialty Start Date End Date Zainab Fountain (Qual Field Manager) [address] [place] [address] PCP - General Internal Medicine 08/03/15 Maximiliano Alcocer MD [address] [place] [address] Physician Radiation Oncology 02/16/16 Yoni Hale DPM [address] [place] [address] Physician Orthopedics 01/19/18 Host And Hostess Relationship Specialty Start Date End Date Zainab Fountain (Eloise) [address] [place] [address] PCP - General Internal Medicine 08/03/15 Maximiliano Alcocer MD [address] [place] [address] Physician Radiation Oncology 02/16/16 Yoni Hale DPM [address] [place] [address] Physician Orthopedics 01/19/18 Host And Hostess Relationship Specialty Start Date End Date Zainab Fountain (Qual Field Manager) [address] [place] [address] PCP - General Internal Medicine 08/03/15 Maximiliano Alcocer MD [address] [place] [address] Physician Radiation Oncology 02/16/16 Yoni Hale DPM [address] [place] [address] Physician Orthopedics 01/19/18 Host And Hostess Relationship Specialty Start Date End Date Zainab Fountain (Eloise) [address] [place] [address] PCP - General Internal Medicine 08/03/15 Maximiliano Alcocer MD [address] [place] [address] Physician Radiation Oncology 02/16/16 Yoni Hale DPM [address] [place] [address] Physician Orthopedics 01/19/18 Host And Hostess Relationship Specialty Start Date End Date Zainab Fountain (Qual Field Manager) [address] [place] [address] PCP - General Internal Medicine 08/03/15 Maximiliano Alcocer MD [address] [place] [address] Physician Radiation Oncology 02/16/16 Yoni Hale DPM [address] [place] [address] Physician Orthopedics 01/19/18 Host And Hostess Relationship Specialty Start Date End Date Zainab Fountain (Qual Field Manager) [address] [place] [address] PCP - General Internal Medicine 08/03/15 Maximiliano Alcocer MD [address] [place] [address] Physician Radiation Oncology 02/16/16 Yoni Hale DPM [address] [place] [address] Physician Orthopedics 01/19/18 Host And Hostess Relationship Specialty Start Date End Date Zainab Fountain (Qual Field Manager) [address] [place] [address] PCP - General Internal Medicine 08/03/15 Maximiliano Alcocer MD [address] [place] [address] Physician Radiation Oncology 02/16/16 Yoni Hale DPM [address] [place] [address] Physician Orthopedics 01/19/18 Host And Hostess Relationship Specialty Start Date End Date Zainab Fountain (Qual Field Manager) [address] [place] [address] PCP - General Internal Medicine 08/03/15 Maximiliano Alcocer MD [address] [place] [address] Physician Radiation Oncology 02/16/16 Yoni Hale DPM [address] [place] [address] Physician Orthopedics 01/19/18 Host And Hostess Relationship Specialty Start Date End Date Zainab Fountain (Qual Field Manager) [address] [place] [address] PCP - General Internal Medicine 08/03/15 Maximiliano Alcocer MD [address] [place] [address] Physician Radiation Oncology 02/16/16 oYni Hale DPM [address] [place] [address] Physician Orthopedics 01/19/18 Host And Hostess Relationship Specialty Start Date End Date Zainab Fountain (Qual Field Manager) [address] [place] [address] PCP - General Internal Medicine 08/03/15 Maximiliano Alcocer MD [address] [place] [address] Physician Radiation Oncology 02/16/16 Yoni Hale DPM [address] [place] [address] Physician Orthopedics 01/19/18 Host And Hostess Relationship Specialty Start Date End Date Zainab Fountain (Qual Field Manager) [address] [place] [address] PCP - General Internal Medicine 08/03/15 Maximiliano Alcocer MD [address] [place] [address] Physician Radiation Oncology 02/16/16 Yoni Hale DPM [address] [place] [address] Physician Orthopedics 01/19/18 Host And Hostess Relationship Specialty Start Date End Date Zainab Fountain (Qual Field Manager) [address] [place] [address] PCP - General Internal Medicine 08/03/15 Maximiliano Alcocer MD [address] [place] [address] Physician Radiation Oncology 02/16/16 Yoni Hale DPM [address] [place] [address] Physician Orthopedics 01/19/18 Host And Hostess Relationship Specialty Start Date End Date Zainab Fountian (Qual Field Manager) [address] [place] [address] PCP - General Internal Medicine 08/03/15 Maximiliano Alcocer MD [address] [place] [address] Physician Radiation Oncology 02/16/16 Yoni Hale DPM [address] [place] [address] Physician Orthopedics 01/19/18 Host And Hostess Relationship Specialty Start Date End Date Zainab Fountain (Qual Field Manager) [address] [place] [address] PCP - General Internal Medicine 08/03/15 Maximiliano Alcocer MD [address] [place] [address] Physician Radiation Oncology 02/16/16 Yoni Hale DPM [address] [place] [address] Physician Orthopedics 01/19/18 Host And Hostess Relationship Specialty Start Date End Date Zainab Fountain NP [address] [place] [address] PCP - General Internal Medicine 08/03/15 Maximiliano Alcocer MD [address] [place] [address] Physician Radiation Oncology 02/16/16 Yoni Hale DPM [address] [place] [address] Physician Orthopedics 01/19/18 Host And Hostess Relationship Specialty Start Date End Date Zainab Fountain NP [address] [place] [address] PCP - General Internal Medicine 08/03/15 Maximiliano Alcocer MD [address] [place] [address] Physician Radiation Oncology 02/16/16 Yoni Hale DPM [address] [place] [address] Physician Orthopedics 01/19/18 Host And Hostess Relationship Specialty Start Date End Date Zainab Fountain NP [address] [place] [address] PCP - General Internal Medicine 08/03/15 Maximiliano Alcocer MD [address] [place] [address] Physician Radiation Oncology 02/16/16 Yoni Hale DPM [address] [place] [address] Physician Orthopedics 01/19/18 Host And Hostess Relationship Specialty Start Date End Date Zainab Fountain NP [address] [place] [address] PCP - General Internal Medicine 08/03/15 Maximiliano Alcocer MD [address] [place] [address] Physician Radiation Oncology 02/16/16 Yoni Hale DPM [address] [place] [address] Physician Orthopedics 01/19/18 Host And Hostess Relationship Specialty Start Date End Date Zainab Fountain NP [address] [place] [address] PCP - General Internal Medicine 08/03/15 Maximiliano Alcocer MD [address] [place] [address] Physician Radiation Oncology 02/16/16 Yoni Hale DPM [address] [place] [address] Physician Orthopedics 01/19/18 Host And Hostess Relationship Specialty Start Date End Date Zainab Fountain NP [address] [place] [address] PCP - General Internal Medicine 08/03/15 Maximiliano Alcocer MD [address] [place] [address] Physician Radiation Oncology 02/16/16 Yoni Hale DPM [address] [place] [address] Physician Orthopedics 01/19/18 Host And Hostess Relationship Specialty Start Date End Date Zainab Fountain NP [address] [place] [address] PCP - General Internal Medicine 08/03/15 Maximiliano Alcocer MD [address] [place] [address] Physician Radiation Oncology 02/16/16 Yoni Hale DPM [address] [place] [address] Physician Orthopedics 01/19/18 Host And Hostess Relationship Specialty Start Date End Date Zainab Fountain NP [address] [place] [address] PCP - General Internal Medicine 08/03/15 Maximiliano Alcocer MD [address] [place] [address] Physician Radiation Oncology 02/16/16 Yoni Hale DPM [address] [place] [address] Physician Orthopedics 01/19/18 Host And Hostess Relationship Specialty Start Date End Date Zainab Fountain NP [address] [place] [address] PCP - General Internal Medicine 08/03/15 Maximiliano Alcocer MD [address] [place] [address] Physician Radiation Oncology 02/16/16 Yoni Hale DPM [address] [place] [address] Physician Orthopedics 01/19/18 Host And Hostess Relationship Specialty Start Date End Date Zainab Fountain NP [address] [place] [address] PCP - General Internal Medicine 08/03/15 Maximiliano Alcocer MD [address] [place] [address] Physician Radiation Oncology 02/16/16 Yoni Hale DPM [address] [place] [address] Physician Orthopedics 01/19/18 Host And Hostess Relationship Specialty Start Date End Date Zainab Fountain NP [address] [place] [address] PCP - General Internal Medicine 08/03/15 Maximiliano Alcocer MD [address] [place] [address] Physician Radiation Oncology 02/16/16 Yoni Hale DPM [address] [place] [address] Physician Orthopedics 01/19/18 Host And Hostess Relationship Specialty Start Date End Date Zainab Fountain NP [address] [place] [address] PCP - General Internal Medicine 08/03/15 Maximiliano Alcocer MD [address] [place] [address] Physician Radiation Oncology 02/16/16 Yoni Hale DPM [address] [place] [address] Physician Orthopedics 01/19/18 Host And Hostess Relationship Specialty Start Date End Date Zainab Fountain NP [address] [place] [address] PCP - General Internal Medicine 08/03/15 Maximiliano Alcocer MD [address] [place] [address] Physician Radiation Oncology 02/16/16 Yoni Hale DPM [address] [place] [address] Physician Orthopedics 01/19/18 Host And Hostess Relationship Specialty Start Date End Date Zainab Fountain NP [address] [place] [address] PCP - General Internal Medicine 08/03/15 Maximiliano Alcocer MD [address] [place] [address] Physician Radiation Oncology 02/16/16 Yoni Hale DPM [address] [place] [address] Physician Orthopedics 01/19/18 Team Status: Active Member Role/Relationship Status Dates Dr. Braxton Washburn , DO Family Provider Active Zainab Fountain PROJECT CONTROLS SCHEDULER, PROJECT CONTROLS SCHEDULER-C Primary Care Provider Active Team Status: Inactive Member Role/Relationship Status Dates Zainab Fountain PROJECT CONTROLS SCHEDULER, PROJECT CONTROLS SCHEDULER-C Primary Care Provider Active Start: May 17, 2025 End: May 17, 2025 Dr. Lashanda Kapoor MD Attending Provider Active Start: May 17, 2025 End: May 17, 2025 Dr. Lashanda Kapoor MD Referring Provider Active Start: May 17, 2025 End: May 17, 2025 Host And Hostess Relationship Specialty Start Date End Date Zainab Fountain NP [address] [place] [address] PCP - General Internal Medicine 08/03/15 Maximiliano Alcocer MD [address] [place] [address] Physician Radiation Oncology 02/16/16 Yoni Hale DPM [address] [place] [address] Physician Orthopedics 01/19/18 Host And Hostess Relationship Specialty Start Date End Date Zainab Fountain NP [address] [place] [address] PCP - General Internal Medicine 08/03/15 Maximiliano Alcocer MD [address] [place] [address] Physician Radiation Oncology 02/16/16 Yoni Hale DPM [address] [place] [address] Physician Orthopedics 01/19/18 Host And Hostess Relationship Specialty Start Date End Date Zainab Fountain NP [address] [place] [address] PCP - General Internal Medicine 08/03/15 Maximiliano Alcocer MD [address] [place] [address] Physician Radiation Oncology 02/16/16 Yoni Hale DPM [address] [place] [address] Physician Orthopedics 01/19/18 Host And Hostess Relationship Specialty Start Date End Date Zainab Fountain NP [address] [place] [address] PCP - General Internal Medicine 08/03/15 Maximiliano Alcocer MD [address] [place] [address] Physician Radiation Oncology 02/16/16 Yoni Hale DPM [address] [place] [address] Physician Orthopedics 01/19/18 Goals (unrecognized section and content) Goals may be documented in a n alternate section FOR RECORDS PERTAINING TO PATIENTS WHO ARE [...] BE BASED ON THE PRIMARY CLINICAL RECORDS. [employer] [facility]. provides no warranty or guarantee of the accuracy or completeness of information in this document.
[2025-08-29 10:29] LABS: Hematocrit 43.4 % (37-47); Hemoglobin 14.7 g/dL (12.0-15.0); Immature Granulocytes Count 0.040 X10^3/uL (0.0-0.0); Mean Corp Hgb Conc 33.9 g/dL (32-36); Mean Corpuscular Volume 91.4 fL (81-99); Mean Platelet Vol. 10.3 fl (6.2-12.0); NRBC Flagged by Analyzer 0 % (0-5); Platelet Count 224 K/mm3 (150-450); RBC Distribution Width CV 12.4 % (11.6-14.6); RBC Distribution Width SD 42.0 fl (35.1-43.9); Red Blood Count 4.75 M/mm3 (4.2-5.4); White Blood Count 6.5 K/mm3 (4.4-11.0)
[2025-08-29 11:06] LABS: AST(SGOT) 18 U/L (<=31); Alanine Aminotransfer ALT/SGPT 23 U/L (<=34); Albumin, Serum 4.1 g/dL (3.5-5.0); Alkaline Phosphatase 41 U/L (35-104); Anion Gap 10 (5-15); BUN 16 mg/dL (4-19); BUN/Creat Ratio 19.3 RATIO (10-20); Calcium,Total 9.8 mg/dL (7.6-11.0); Carbon Dioxide 26.2 mmol/L (21.0-32.0); Chloride 104 mmol/L (98-108); Globulin 3.2 g/dL (2.2-4.2); Glucose 81 mg/dL (70-99); Potassium 4.1 mmol/L (3.3-5.1)
== END | disposition home or self-care (01) ==
LOC: MTLAB 07:06
PROVIDERS: PCP Nurse Practitioner Family; Referring Provider Internal Medicine Rheumatology; Visit Provider Internal Medicine Rheumatology
DX: M06.4 Inflammatory polyarthropathy (principal); R76.89 Other specified abnormal immunological findings in serum
CPT/HCPCS: 36415; 80053; 85025